=== PATIENT | female | born 1955 | race Caucasian/White ===

== ENCOUNTER 2016-12-14 14:15 | Inpatient (IN) | payer MEDICARE, OTHER ==
[2016-12-14] MEDS ORDERED: IPRATROPIUM 0.5 MG/2.5 ML NEBU INHALATION STA (14:37)
[2016-12-14] MEDS ORDERED: ALBUTEROL NEBULIZED 2.5 MG/3 ML INHALATION STA (14:37)
--- NOTE | 2016-12-14 14:40 | ED ---
General Adult HPI - General Chief complaint: Shortness of Breath Stated complaint: CALIN Source: patient, RN notes reviewed Mode of arrival: wheelchair Limitations: no limitations - History of Present Illness Initial comments: This is a 61-year-old female with past medical history significant for COPD and congestive heart failure. Patient states over the last few days she's gained about 5 pounds and she's also noticed or difficulty breathing got progressively worse with exertion. Patient denies any chest pain or palpitations. Patient denies any recent fever chills or cough. Patient denies abdominal pain patient denies nausea vomiting or diarrhea. Patient denies headache patient denies numbness weakness. Patient denies any lightheadedness dizziness or near syncopal episode. Patient denies any recent injury or trauma. Patient denies any dysuria hematuria urinary frequency. - Related Data Home Medications Medication Instructions Recorded Confirmed Levothyroxine Sodium [Synthroid] 125 mcg PO QAM 05/14/15 12/14/16 Tiotropium [place] [Spiriva] 1 cap INHALATION RT-DAILY 05/14/15 12/14/16 Metoprolol Tartrate [Lopressor] 50 mg PO TID 08/02/15 12/14/16 Levalbuterol Tartrate [Xopenex Hfa 2 puff INHALATION RT-Q6H PRN 01/21/16 Inhaler] hydrALAZINE HCL [Apresoline] 25 mg PO TID-W/MEALS 03/24/16 12/14/16 Mometasone/Formoterol [Dulera 200 2 puff INHALATION RT-BID 09/15/16 12/14/16 Mcg/5 Mcg Inhaler] Furosemide [Lasix] 40 mg PO BID 10/13/16 12/14/16 Aspirin EC [Ecotrin Low Dose] 81 mg PO HS 12/14/16 12/14/16 Famotidine [Pepcid] 20 mg PO DAILY 12/14/16 12/14/16 HYDROcodone/APAP 5-325MG [[place] 1 tab PO Q6HR PRN 12/14/16 12/14/16 5-325] Ipratropium-Albuterol Nebulize 3 ml INHALATION RT-QID 12/14/16 12/14/16 [Duoneb 0.5 mg-3 mg/3 ml Soln] Melatonin 5 mg PO HS PRN 12/14/16 12/14/16 Previous Rx's Medication Instructions Recorded Apixaban [Eliquis] 5 mg PO BID #60 tab 01/26/16 Atorvastatin [Lipitor] 80 mg PO HS #30 tab 03/28/16 Clopidogrel [Plavix] 75 mg PO DAILY tab 10/25/16 Enalapril [Vasotec] 20 mg PO DAILY #0 10/25/16 LORazepam [Ativan] 0.5 mg PO Q8H PRN #20 tab 10/25/16 Zolpidem [Ambien] 5 mg PO HS PRN #10 tab 10/25/16 Allergies Allergy/AdvReac Type Severity Reaction Status Date / Time ciprofloxacin HCl Allergy Severe Anaphylaxis Verified 12/14/16 16:16 [From Cipro] budesonide [From Symbicort] AdvReac Rapid Verified 12/14/16 16:16 Heart Rate formoterol fumarate AdvReac Rapid Verified 12/14/16 16:16 [From Symbicort] Heart Rate Review of Systems ROS Statement: Those systems with pertinent positive or pertinent negative responses have been documented in the HPI. ROS Other: All systems not noted in ROS Statement are negative. Past Medical History Past Medical History: Atrial Flutter, Coronary Artery Disease (CAD), Heart Failure, COPD, GERD/Reflux, Hyperlipidemia, Hypertension, Myocardial Infarction (NE), Osteoarthritis (OA), Syncope, Thyroid Disorder Additional Past Medical History / Comment(s): COPD and the patient is on home O2 at 2 L/m nasal cannula and she has a baseline FEV1 of 30% of predicted and she is a nonsmoker, congestion heart failure with an ejection fraction of 30-35 % along with severe pulmonary hypertension and the right ventricle systolic pressure of 60, history of atrial fibrillation/flutter/atrial tachycardia with previous cardiac ablation, fibromyalgia, hyperlipidemia, hypertension, colonic polyps, previous coronary artery disease and reported history of myocardial infarction, hypothyroidism, degenerative arthritis, nonischemic cardio myopathy, and severe peripheral vascular disease. Last Myocardial Infarction Date:: 2013 History of Any Multi-Drug Resistant Organisms: None Reported Past Surgical History: Bowel Resection, Cardiac Ablation, Section, Heart Catheterization, Tubal Ligation Additional Past Surgical History / Comment(s): Bowel resection, cardiac ablation for atrial flutter, , cardiac catheterization, tubal ligation Past Anesthesia/Blood Transfusion Reactions: Motion Sickness Additional Past Anesthesia/Blood Transfusion Reaction / Comment(s): CLAUSTROPHOBIA Past Psychological History: Anxiety, Depression Additional Psychological History / Comment(s): PT LIVES ALONE IS INDEPENDANT, 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 Smoking Status: Former smoker Past Alcohol Use History: Rare Additional Past Alcohol Use History / Comment(s): SMOKED 40 YEARS, 1 1/2-2 PPD, quit one monthe Past Drug Use History: None Reported - Past Family History Mother Family Medical History: Cancer Father Family Medical History: Coronary Artery Disease (CAD) General Exam - General Exam Comments Initial Comments: GENERAL: Patient is well-developed and well-nourished. Patient is nontoxic and well- hydrated and is in mild distress. ENT: Neck is soft and supple. No significant lymphadenopathy is noted. Oropharynx is clear. Moist mucous membranes. Neck has full range of motion without eliciting any pain. EYES: The sclera were anicteric and conjunctiva were pink and moist. Extraocular movements were intact and pupils were equal round and reactive to light. Eyelids were unremarkable. PULMONARY: Patient has significant diminished breath sounds but some expiratory wheezing as well CARDIOVASCULAR: Tachycardic and irregular ABDOMEN: Soft and nontender with normal bowel sounds. No palpable organomegaly was noted. There is no palpable pulsatile mass. SKIN: Skin is clear with no lesions or rashes and otherwise unremarkable. NEUROLOGIC: Patient is alert and oriented x3. Cranial nerves II through XII are grossly intact. Motor and sensory are also intact. Normal speech, volume and content. Symmetrical smile. MUSCULOSKELETAL: Normal extremities with adequate strength and full range of motion. 1+ LYMPHATICS: No significant lymphadenopathy is noted PSYCHIATRIC: Normal psychiatric evaluation. Normal interpersonal interactions appears functionally intact in deals appropriately with others. No signs of depression. No signs of anxiety. Limitations: no limitations Course Vital Signs 12/14/16 12/14/16 12/14/16 14:22 14:48 15:00 Temperature 96.6 F L Pulse Rate 74 132 H 121 H Respiratory 18 20 Rate Blood Pressure 145/78 O2 Sat by Pulse 94 L 99 Oximetry 12/14/16 12/14/16 12/14/16 15:15 15:30 15:46 Temperature Pulse Rate 116 H 118 H 109 H Respiratory 20 Rate Blood Pressure 123/92 O2 Sat by Pulse 99 Oximetry 12/14/16 12/14/16 12/14/16 15:56 16:11 17:00 Temperature Pulse Rate 115 H 118 H 120 H Respiratory 18 20 Rate Blood Pressure 119/80 O2 Sat by Pulse 93 L 95 Oximetry Medical Decision Making - Medical Decision Making EKG shows atrial fibrillation with rapid ventricular response at 132 bpm QRS is 86 QT interval 322 QTC is 477. Patient's EKG shows no ST segment elevation or depression or T-wave abdomen is noted. Chest x-ray shows COPD. Patient received 3 [id number] treatments after the last treatment I listened to her lungs she still had a very wheezing she still felt short of breath though she was slightly improved. I spoke with Dr. Ramos she is going to admit the patient I will write admitting orders I will continue the albuterol and steroids on the floor. - Lab Data Result diagrams: 12/14/16 14:45 12/14/16 14:45 Lab Results 12/14/16 12/14/16 12/14/16 Range/Units 14:45 14:45 14:45 WBC 8.5 (3.8-10.6) k/uL RBC 4.22 (3.80-5.40) m/uL Hgb 13.5 (11.4-16.0) gm/dL Hct 43.2 (34.0-46.0) % MCV 102.3 H (80.0-100.0) fL MCH 32.0 (25.0-35.0) pg MCHC 31.3 (31.0-37.0) g/dL RDW 16.1 H (11.5-15.5) % Plt Count 226 (150-450) k/uL Neutrophils % 69 % Lymphocytes % 19 % Monocytes % 7 % Eosinophils % 1 % Basophils % 1 % Neutrophils # 5.9 (1.3-7.7) k/uL Lymphocytes # 1.6 (1.0-4.8) k/uL Monocytes # 0.6 (0-1.0) k/uL Eosinophils # 0.1 (0-0.7) k/uL Basophils # 0.1 (0-0.2) k/uL Anisocytosis Slight Macrocytosis Moderate PT (9.0-12.0) sec INR (<1.1) APTT (22.0-30.0) sec Sodium 135 L (137-145) mmol/L Potassium 4.8 (3.5-5.1) mmol/L Chloride 93 L (98-107) mmol/L Carbon Dioxide 30 (22-30) mmol/L Anion Gap 12 mmol/L BUN 28 H (7-17) mg/dL Creatinine 0.76 (0.52-1.04) mg/dL Est GFR (MDRD) Af Amer >60 (>60 ml/min/1.73 sqM) Est GFR (MDRD) Non-Af >60 (>60 ml/min/1.73 sqM) Glucose 127 H (74-99) mg/dL Calcium 9.4 (8.4-10.2) mg/dL Magnesium 1.7 (1.6-2.3) mg/dL Total Bilirubin 1.3 (0.2-1.3) mg/dL AST 34 (14-36) U/L ALT 47 (9-52) U/L Alkaline Phosphatase 89 (38-126) U/L Total Creatine Kinase 64 (30-135) U/L CK-MB (CK-2) 3.0 H* (0.0-2.4) ng/mL CK-MB (CK-2) Rel Index 4.7 Troponin I <0.012 (0.000-0.034) ng/mL NT-Pro-B Natriuret Pep pg/mL Total Protein 7.6 (6.3-8.2) g/dL Albumin 4.3 (3.5-5.0) g/dL 12/14/16 12/14/16 Range/Units 14:45 14:45 WBC (3.8-10.6) k/uL RBC (3.80-5.40) m/uL Hgb (11.4-16.0) gm/dL Hct (34.0-46.0) % MCV (80.0-100.0) fL MCH (25.0-35.0) pg MCHC (31.0-37.0) g/dL RDW (11.5-15.5) % Plt Count (150-450) k/uL Neutrophils % % Lymphocytes % % Monocytes % % Eosinophils % % Basophils % % Neutrophils # (1.3-7.7) k/uL Lymphocytes # (1.0-4.8) k/uL Monocytes # (0-1.0) k/uL Eosinophils # (0-0.7) k/uL Basophils # (0-0.2) k/uL Anisocytosis Macrocytosis PT 14.2 H (9.0-12.0) sec INR 1.5 (<1.1) APTT 26.5 (22.0-30.0) sec Sodium (137-145) mmol/L Potassium (3.5-5.1) mmol/L Chloride (98-107) mmol/L Carbon Dioxide (22-30) mmol/L Anion Gap mmol/L BUN (7-17) mg/dL Creatinine (0.52-1.04) mg/dL Est GFR (MDRD) Af Amer (>60 ml/min/1.73 sqM) Est GFR (MDRD) Non-Af (>60 ml/min/1.73 sqM) Glucose (74-99) mg/dL Calcium (8.4-10.2) mg/dL Magnesium (1.6-2.3) mg/dL Total Bilirubin (0.2-1.3) mg/dL AST (14-36) U/L ALT (9-52) U/L Alkaline Phosphatase (38-126) U/L Total Creatine Kinase (30-135) U/L CK-MB (CK-2) (0.0-2.4) ng/mL CK-MB (CK-2) Rel Index Troponin I (0.000-0.034) ng/mL NT-Pro-B Natriuret Pep 99256 pg/mL Total Protein (6.3-8.2) g/dL Albumin (3.5-5.0) g/dL Critical Care Time Critical Care Time: Yes Total Critical Care Time: 35 Disposition Clinical Impression: COPD exacerbation Disposition: ADMITTED IP TO THIS HOSP Referrals: George Lloyd DO [Primary Care Provider] - 1-2 days Time of Disposition: 17:38
[2016-12-14 15:08] LABS: Anisocytosis Slight; Basophils # (A) 0.1 k/uL (0-0.2); Basophils % (A) 1 %; CH 32.5; Eosinophils # (A) 0.1 k/uL (0-0.7); Eosinophils % (A) 1 %; HCT 43.2 % (34.0-46.0); HDW 2.77; HGB 13.5 gm/dL (11.4-16.0); Luc # (Auto) 0.26; Luc % (Auto) 3; Lymphocytes # (A) 1.6 k/uL (1.0-4.8); Lymphocytes % (A) 19 %; MCHC 31.3 g/dL (31.0-37.0); MCV 102.3 fL (80.0-100.0); Macrocytosis Moderate; Mean Platelet Volume 8.4; Monocytes # (A) 0.6 k/uL (0-1.0); Monocytes % (A) 7 %; Neutrophils # (A) 5.9 k/uL (1.3-7.7); Neutrophils % (A) 69 %; RBC 4.22 m/uL (3.80-5.40); RDW 16.1 % (11.5-15.5); WBC 8.5 k/uL (3.8-10.6); WBC (Perox) 8.59
[2016-12-14 15:10] LABS: INR 1.5 (<1.1); Partial Thromboplastin Time 26.5 sec (22.0-30.0); Prothrombin Time 14.2 sec (9.0-12.0)
[2016-12-14 15:12] LABS: Glucose 127 mg/dL (74-99); Total Protein 7.6 g/dL (6.3-8.2)
[2016-12-14 15:13] LABS: ALT 47 U/L (9-52); AST 34 U/L (14-36); Alkaline Phosphatase 89 U/L (38-126); Anion Gap 12 mmol/L; Blood Urea Nitrogen 28 mg/dL (7-17); Calcium 9.4 mg/dL (8.4-10.2); Carbon Dioxide 30 mmol/L (22-30); Chloride 93 mmol/L (98-107); Magnesium 1.7 mg/dL (1.6-2.3); Non-African American GFR(MDRD) >60 (>60 ml/min/1.73 sqM); Potassium 4.8 mmol/L (3.5-5.1); Sodium 135 mmol/L (137-145); Total Bilirubin 1.3 mg/dL (0.2-1.3)
[2016-12-14 15:38] LABS: Creatine Kinase 64 U/L (30-135)
[2016-12-14 15:49] LABS: Troponin I <0.012 ng/mL (0.000-0.034)
--- NOTE | 2016-12-14 16:28 | XR ---
EXAMINATION TYPE: XR chest 2V DATE OF EXAM: 12/14/2016 4:20 PM HISTORY: Shortness of breath. REFERENCE: Previous study dated 10/22/2016. FINDINGS: The lungs are overinflated. There is multichamber cardiac enlargement. Lungs are clear. Ple ural spaces are clear. IMPRESSION: 1. COPD. 2. CARDIOMEGALY.
[2016-12-14] MEDS: IPRATROPIUM-ALBUTEROL 3 ML NEB INHALATION PRN ×2 (19:59→23:59)
[2016-12-14] MEDS: methylPREDNISolone SOD SUCCI 125 MG/2 ML VIAL IV SCH ×2 (20:02→23:59)
[2016-12-14] MEDS: INSULIN LISPRO (humaLOG) 300 UNIT/3 ML VIAL SQ SCH (21:18)
[2016-12-14] MEDS ORDERED: LORazepam 0.5 MG TAB PO PRN (21:31)
[2016-12-14] MEDS ORDERED: NON-FORMULARY DRUG (Levalbuterol Tartrate [Xopenex Hfa Inhaler] 2 PUFF) INHALATION PRN (21:31)
[2016-12-14 22:23] LABS: Glucose,Whole Blood 120 mg/dL (75-99)
[2016-12-14] MEDS: ATORVASTATIN 80 MG TAB PO SCH (22:32)
[2016-12-14] MEDS: HYDROcodone/APAP 5-325MG 1 EACH TAB PO PRN (22:32)
[2016-12-14] MEDS: METOPROLOL TARTRATE 50 MG TAB PO SCH (22:32)
[2016-12-14] MEDS: APIXABAN 5 MG TAB PO SCH (22:32)
[2016-12-14] MEDS: ZOLPIDEM 5 MG TAB PO PRN (23:21)
[2016-12-14] MEDS: MELATONIN 5 MG TABLET PO PRN (23:21)
[2016-12-15] MEDS ORDERED: DILTIAZEM 125 MG in SODIUM CHLORIDE 0.9% 100 ML IV SCH (00:15)
[2016-12-15] MEDS: IPRATROPIUM-ALBUTEROL 3 ML NEB INHALATION PRN ×3 (04:16→20:09)
[2016-12-15] MEDS: LEVOTHYROXINE 125 MCG TAB PO SCH (06:13)
[2016-12-15] MEDS: hydrALAZINE HCL 25 MG TAB PO SCH ×3 (06:13→17:09)
[2016-12-15] MEDS: methylPREDNISolone SOD SUCCI 125 MG/2 ML VIAL IV SCH ×4 (06:13→23:50)
[2016-12-15 07:21] LABS: Glucose,Whole Blood 179 mg/dL (75-99)
[2016-12-15] MEDS: INSULIN LISPRO (humaLOG) 300 UNIT/3 ML VIAL SQ SCH ×4 (07:26→21:51)
[2016-12-15] MEDS ORDERED: TIOTROPIUM 18 MCG/PUFF INHALER INHALATION SCH (08:00)
[2016-12-15] MEDS: APIXABAN 5 MG TAB PO SCH ×2 (09:11→21:23)
[2016-12-15] MEDS: FAMOTIDINE 20 MG TAB PO SCH (09:11)
[2016-12-15] MEDS: CLOPIDOGREL 75 MG TAB PO SCH (09:12)
[2016-12-15] MEDS: METOPROLOL TARTRATE 50 MG TAB PO SCH ×3 (09:12→21:22)
[2016-12-15] MEDS: FUROSEMIDE 40 MG TAB PO SCH ×2 (09:12→15:46)
[2016-12-15] MEDS: DILTIAZEM ORAL 30 MG TAB PO SCH ×3 (09:21→21:23)
--- NOTE | 2016-12-15 10:13 | CONS ---
DATE OF CONSULTATION: CHIEF COMPLAINT: Palpitations, shortness of breath. Allison is a 61-year-old lady with a history of severe COPD, peripheral vascular disease, PTCA of the right superficial femoral artery, prior history of congestive heart failure, history of paroxysmal atrial fibrillation, who is on long-term anticoagulant, presented to hospital with shortness of breath and palpitations. She was found to be in atrial fibrillation with rapid ventricular rate, treated with intravenous Cardizem with significant improvement in her heart rate and symptoms. This morning her heart rate is in the 90s to 100. I stopped the intravenous Cardizem and I am starting her on oral Cardizem. She is already on an anticoagulant and she is on beta stu. Past medical history is significant for COPD, congestive heart failure, peripheral vascular disease, hypertension, dyslipidemia, and insulin-requiring diabetes. Medications at home included: 1. Hydralazine. 2. Ambien. 3. Spiriva. 4. Dulera. 5. Lopressor 50 t.i.d. 6. Synthroid. 7. Melatonin. 8. Xopenex. 9. Ativan. 10. Duoneb. 11. Lasix 40 b.i.d. 12. Pepcid. 13. Vasotec 20 mg daily. 14. Plavix 75 mg daily. 15. Lipitor. 16. Aspirin. 17. Eliquis. THE PATIENT IS ALLERGIC TO CIPRO AND SYMBICORT. FAMILY HISTORY: Negative for premature coronary artery disease. SOCIAL HISTORY: Significant for smoking. There is no history of ETOH abuse, or drug abuse. REVIEW OF SYSTEMS: HEENT: Unremarkable. CARDIAC: As described above. RESPIRATORY: As described above. GI: Negative. GENITOURINARY: Negative. MUSCULOSKELETAL: Significant for arthritis. PSYCHOSOCIAL: Negative. ENDOCRINE: negative. HEMATOLOGIC: Negative. Dermatology: Negative. CONSTITUTIONAL: Significant for fatigue and tiredness. The rest of the system review is not relevant. On exam she is comfortable at rest. Vital signs are stable. Heart rate is slightly elevated in the 90s to 100. Chest exam reveals diffuse bilateral rhonchi. Heart exam reveals first and second heart sounds, irregular rhythm. ABDOMEN: Soft. Exam of the extremities did not reveal any edema. Peripheral pulses are diminished. Labs show that hemoglobin is 13.5, platelet count is 226. Creatinine is 0.76. Troponin is negative. BNP is elevated. ASSESSMENT: 1. Acute exacerbation of chronic systolic heart failure. 2. Chronic atrial fibrillation with rapid ventricular rate. 3. Severe chronic obstructive pulmonary disease. 4. Peripheral vascular disease. 5. Hypertension. PLAN: I am going to stop the intravenous Cardizem, start her on oral Cardizem. Continue the Eliquis that she is on. The patient is on optimal therapies for her peripheral vascular disease including Plavix and Lipitor. Her hypertension is well controlled on the current medications that include Zestril, Apresoline and the metoprolol. Thank you for giving me the privilege to participate in the care of this pleasant lady. We will follow her throughout her hospitalization with interest.
[2016-12-15] MEDS: HYDROcodone/APAP 5-325MG 1 EACH TAB PO PRN ×2 (11:11→17:19)
[2016-12-15 11:44] LABS: Glucose,Whole Blood 164 mg/dL (75-99)
--- NOTE | 2016-12-15 11:44 | ECHOF ---
Referral Reason:A fib, COPD MEASUREMENTS -------- HEIGHT: 162.6 cm WEIGHT: 68.0 kg BP: RVIDd: 4.1 cm (< 3.3) IVSd: 0.9 cm (0.6 - 1.1) LVIDd: 3.9 cm (3.9 - 5.3) LVPWd: 1.0 cm (0.6 - 1.1) IVSs: 1.4 cm LVIDs: 3.5 cm LVPWs: 1.4 cm LA Diam: 4.1 cm (2.7 - 3.8) LAESV Index (A-L): 45.51 ml/m Ao Diam: 2.4 cm (2.0 - 3.7) AV Cusp: 1.6 cm (1.5 - 2.6) LA Diam: 3.8 cm (2.7 - 3.8) MV EXCURSION: 12.495 mm (> 18.000) MV EF SLOPE: 95 mm/s (70 - 150) EPSS: 0.7 cm RAP: 15.00 mmHg RVSP: 46.29 mmHg FINDINGS -------- Atrial fibrillation. This was a technically good study. Left ventricular wall thickness is normal. Overall left ventricular systolic function is moderately impaired with, an EF between 35 - 40 %. The right ventricle is severely enlarged. LA is severely dilated >40 ml/m2 The right atrium is mildly enlarged. Aortic valve is trileaflet and is mildly thickened. The mitral valve leaflets are mildly thickened. Mild mitral annular calcification present. Mild mitral regurgitation is present. Mild tricuspid regurgitation present. There is mild to moderate pulmonary hypertension. The right ventricular systolic pressure, as measured by Doppler, is 46.29mmHg. The pulmonic valve was not well visualized. The aortic root size is normal. The inferior vena cava is dilated with poor inspiratory collapse which is consistent with estimated right atrial pressure of 15 mmHg. There is no pericardial effusion. CONCLUSIONS -------- 1. Atrial fibrillation. 2. Mild mitral annular calcification present. 3. Mild mitral regurgitation is present. 4. Mild tricuspid regurgitation present. 5. There is mild to moderate pulmonary hypertension. 6. The right ventricular systolic pressure, as measured by Doppler, is 46.29mmHg. 7. The pulmonic valve was not well visualized. 8. The aortic root size is normal. 9. The inferior vena cava is dilated with poor inspiratory collapse which is consistent with estimated right atrial pressure of 15 mmHg. 10. There is no pericardial effusion. 11. This was a technically good study. 12. Left ventricular wall thickness is normal. 13. Overall left ventricular systolic function is moderately impaired with, an EF between 35 - 40 %. 14. The right ventricle is severely enlarged. 15. LA is severely dilated >40 ml/m2 16. The right atrium is mildly enlarged. 17. Aortic valve is trileaflet and is mildly thickened. 18. The mitral valve leaflets are mildly thickened. KNITTER MACHINE: Lena Cortes RDCS
[2016-12-15] MEDS: LISINOPRIL 20 MG TAB PO SCH (12:58)
[2016-12-15] MEDS: IPRATROPIUM-ALBUTEROL 3 ML NEB INHALATION SCH ×4 (13:09→20:16)
--- NOTE | 2016-12-15 15:33 | HP ---
DATE OF ADMISSION: 12/14/2015 PRESENTING COMPLAINT: Cough and short of breath. HISTORY OF PRESENTING COMPLAINT: This is a very pleasant 61-year-old patient of Dr. 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 The patient has a rather extensive medical history. Patient's chronic stable medical conditions include restless leg syndrome, coronary artery disease, fibromyalgia, hyperlipidemia, hypertension, osteoarthritis, chronic respiratory failure on 2 liters oxygen at home, hypothyroidism. Patient presents with worsening short of breath, cough, yellow thick sputum. No fever, decreased appetite. Short of breath. Some edema feeling tired and rundown. REVIEW OF SYSTEMS: CONSTITUTIONAL: Tired. HEENT: None. RESPIRATORY: As above. CARDIOVASCULAR: Edema. GASTROINTESTINAL: None. GENITOURINARY: None. MUSCULOSKELETAL: Pain in the joints. Dermatological: Dry skin, bruising. HEMATOLOGICAL: As above. LYMPHATICS: None. PSYCHIATRY: Anxiety. NEUROLOGICAL: Restless leg syndrome. PAST MEDICAL HISTORY: History of atrial tachycardia with failed ablation, coronary artery disease, COPD, nicotine dependence, fibromyalgia, hyperlipidemia, hypertension, DJD, home oxygen, hypothyroidism, congestive heart failure, ejection fraction 30% to 35%. PAST SURGICAL HISTORY: Bowel resection, , cardiac catheterization, EP study with ablation. SOCIAL HISTORY: The patient smoked for many years; stopped about 3 months ago. Lives alone. ALLERGIES: CIPROFLOXACIN. FAMILY HISTORY: Reviewed, noncontributory to the presentation. HOME MEDICATIONS: 1. Hydralazine 25 mg p.o. t.i.d. 2. Ambien 5 mg p.o. q.h.s. p.r.n. 3. Spiriva 1 capsule p.o. daily. 4. Dulera 200/5, 2 puffs b.i.d. 5. Lopressor 50 mg t.i.d. 6. Melatonin 5 mg p.o. q.h.s. p.r.n. 7. Synthroid 125 mcg p.o. daily. 8. Xopenex 2 puffs q.6 p.r.n. 9. Ativan 0.5 q.8 p.r.n. 10. DuoNeb q.i.d. 11. [place] 5 1 tablets q.6 p.r.n. 12. Lasix 40 mg b.i.d. 13. Pepcid 20 mg daily. 14. Vasotec 20 mg daily. 15. Plavix 75 mg daily. 16. Lipitor 80 mg q.h.s. 17. Aspirin 81 mg q.h.s. 18. Eliquis 5 mg p.o. b.i.d. ALLERGIES TO CIPRO AND BUDESONIDE AND SYMBICORT. VITAL SIGNS: On examination vital signs on presentation: Temperature 96.6, pulse 74, respiration 18, and heart rate did go up to 132, blood pressure 140/78, pulse ox 99% on ( ). GENERAL APPEARANCE: Sitting up, very short of breath. EYES: Pupils equal. Conjunctivae normal. HEENT: Oral cavity normal. NECK: JVD unable to assess. Mass not palpable. RESPIRATORY: Effort decreased. LUNGS: Diminished breath sounds. Prolonged expiration and some crackles. Accessory muscles are working. Not able to speak in full sentences. CARDIOVASCULAR: Heart sounds irregular, some edema present. ABDOMEN: Soft, nontender. Liver and spleen not palpable. LYMPHATIC: No lymph nodes palpable in neck or axillae. PSYCHIATRY: Alert and oriented x3. Mood and affect anxious appearing. NEUROLOGICAL: Pupils equal. Cranial nerves grossly intact. Power and sensation grossly intact. MUSCULOSKELETAL: Evidence of osteoarthritis of multiple joints. Dermatological: Dry skin. INVESTIGATIONS: White count 8.5, hemoglobin 13.5. Potassium 4.8. BUN 20 creatinine 0.76. ProBNP 10,300. Troponin less than 0.012. Chest x-ray shows over-inflation probably some venous prominence, cardiomegaly, EKG shows atrial fibrillation with rapid ventricular rate. ASSESSMENT: 1. Acute on chronic congestive heart failure exacerbation from systolic dysfunction; ejection fraction 30- 35%, underlying coronary artery disease. 2. Persistent atrial flutter fibrillation with rapid ventricular rate on presentation. 3. Acute severe chronic obstructive pulmonary disease exacerbation in an active smoker. 4. Restless leg syndrome. 5. Fibromyalgia. 6. Hyperlipidemia. 7. Essential hypertension. 8. Primary osteoarthritis of multiple joints, bilaterally. 9. Chronic hypoxic respiratory failure, from underlying chronic obstructive pulmonary disease on 2 liters oxygen at home. 10. Hypothyroidism. 11. Moderate secondary pulmonary hypertension secondary to chronic obstructive pulmonary disease. 12. Severe tricuspid regurgitation, nonrheumatic. PLAN: Home medications are resumed. Patient was put on IV Solu-Medrol, nebulized bronchodilators, IV Lasix and patient is given some Lasix. The patient was put on Cardizem per cardiology. Care was discussed with the patient. Anticoagulation for A. fib from Eliquis is present. We will add Augmentin p.o.
[2016-12-15] MEDS: AMOXIC-POT CLAV 875-125MG 1 EACH TAB PO SCH ×2 (15:45→21:22)
[2016-12-15 17:17] LABS: Glucose,Whole Blood 202 mg/dL (75-99)
[2016-12-15] MEDS: DULERA INHALATION SCH (21:22)
[2016-12-15] MEDS: ASPIRIN 81 MG CHEW PO SCH (21:23)
[2016-12-15] MEDS: ATORVASTATIN 80 MG TAB PO SCH (21:23)
[2016-12-15] MEDS ORDERED: FUROSEMIDE 10 MG/ML 4 ML VIAL IV STA (21:31)
[2016-12-15 21:47] LABS: Glucose,Whole Blood 204 mg/dL (75-99)
[2016-12-15] MEDS: MELATONIN 5 MG TABLET PO PRN (23:50)
[2016-12-15] MEDS: ZOLPIDEM 5 MG TAB PO PRN (23:50)
[2016-12-16] MEDS: HYDROcodone/APAP 5-325MG 1 EACH TAB PO PRN ×4 (00:44→21:34)
[2016-12-16] MEDS: hydrALAZINE HCL 25 MG TAB PO SCH ×3 (06:34→17:12)
[2016-12-16] MEDS: methylPREDNISolone SOD SUCCI 125 MG/2 ML VIAL IV SCH ×4 (06:34→23:00)
[2016-12-16] MEDS: INSULIN LISPRO (humaLOG) 300 UNIT/3 ML VIAL SQ SCH ×4 (06:35→20:51)
[2016-12-16] MEDS: LEVOTHYROXINE 125 MCG TAB PO SCH (06:35)
[2016-12-16 06:50] LABS: Glucose,Whole Blood 176 mg/dL (75-99)
[2016-12-16] MEDS: DILTIAZEM ORAL 30 MG TAB PO SCH ×3 (08:07→20:51)
[2016-12-16] MEDS: METOPROLOL TARTRATE 50 MG TAB PO SCH ×3 (08:07→20:51)
[2016-12-16] MEDS: DULERA INHALATION SCH (08:07)
[2016-12-16] MEDS: FUROSEMIDE 40 MG TAB PO SCH ×2 (08:08→15:44)
[2016-12-16] MEDS: AMOXIC-POT CLAV 875-125MG 1 EACH TAB PO SCH ×2 (08:08→20:50)
[2016-12-16] MEDS: LISINOPRIL 20 MG TAB PO SCH (08:09)
[2016-12-16] MEDS: FAMOTIDINE 20 MG TAB PO SCH (08:09)
[2016-12-16] MEDS: APIXABAN 5 MG TAB PO SCH (08:09)
[2016-12-16] MEDS: CLOPIDOGREL 75 MG TAB PO SCH (08:10)
[2016-12-16] MEDS: IPRATROPIUM-ALBUTEROL 3 ML NEB INHALATION SCH ×3 (08:13→19:58)
[2016-12-16 11:19] LABS: Glucose,Whole Blood 149 mg/dL (75-99)
--- NOTE | 2016-12-16 12:06 | P.PN ---
Subjective Principal diagnosis: Shortness of breath this is a 61-year-old female patient with history of severe COPD, peripheral vascular disease, PAD with prior PTCA of the right superficial femoral artery, paroxysmal atrial fibrillation, who presented to the hospital primarily with symptoms of worsening shortness of breath and palpitations. She has been being treated for congestive heart failure did receive IV Lasix and is currently on by mouth Lasix. She was also found to be in atrial fibrillation with a rapid ventricular response, initiated on IV Cardizem and yesterday changed over to by mouth Cardizem. She is currently on by mouth Cardizem 30 3 times a day along with her beta stu.She is on Eliquis for anticoagulation.In view of the fact that the patient is on Eliquis, aspirin, and Plavix, we will decrease her dose of Eliquis to 2-1/2 mg one tablet by mouth twice a day.patient continues to have significant amount of wheezing on examination today. Objective - Vital Signs Vital signs: Vital Signs Temp 97.4 F L 12/16/16 04:00 Pulse 96 12/16/16 11:27 Resp 18 12/16/16 08:00 BP 109/64 12/16/16 04:00 Pulse Ox 91 L 12/16/16 08:00 Intake & Output 12/15/16 12/16/16 12/16/16 18:59 06:59 18:59 Intake Total 640 400 716 Output Total 600 1400 Balance 40 -1000 716 Weight 67.8 kg Intake: IV 40 Diltiazem 125 mg In 40 Sodium Chloride 0.9% 100 ml @ 7.5 MG/HR 7.5 mls/hr IV .[id number] [facility] [place] Rx#: [id number] Oral 600 400 716 Output: Urine 600 1400 Other: Voiding Method Toilet Toilet # Voids 2 1 # Bowel Movements 0 - Exam PHYSICAL EXAMINATION: HEENT: [Head is atraumatic, normocephalic. Pupils equal, round. Neck is supple. There is no elevated jugular venous pressure.] HEART EXAMINATION: heart S1 and S2 irregular irregular CHEST EXAMINATION:Lungs reveal scattered coarse wheezing throughout. ABDOMEN: [ Soft, nontender. Bowel sounds are heard. No organomegaly noted]. EXTREMITIES:[ 1+ peripheral pulses with trace evidence of peripheral edema and no calf tenderness noted]. NEUROLOGIC [patient is awake, alert and oriented -3.] . - Labs CBC & Chem 7: 12/14/16 14:45 12/14/16 14:45 Labs: Abnormal Lab Results - Last 24 Hours (Table) 12/15/16 12/15/16 12/16/16 Range/Units 16:49 21:34 06:15 POC Glucose (mg/dL) 202 H 204 H 176 H (75-99) mg/dL 12/16/16 Range/Units 11:18 POC Glucose (mg/dL) 149 H (75-99) mg/dL Assessment and Plan (1) Systolic CHF, acute on chronic Status: Acute (2) Chronic a-fib Status: Acute (3) COPD exacerbation Status: Acute (4) EtOH dependence Status: Acute (5) Hypothyroid Status: Acute (6) NICM (nonischemic cardiomyopathy) Status: Acute (7) Nicotine dependence Status: Acute (8) PAD (peripheral artery disease) Status: Acute Plan: From cardiology's perspective, we will recommend to continue Cardizem along with beta stu. We will decrease the Eliquis to 2-1/2 mg one tablet by mouth twice a day, continue baby aspirin along with Plavix. Continue current dose of by mouth Lasix. DNP note has been reviewed, I agree with a documented findings and plan of care. Patient was seen and examined.
--- NOTE | 2016-12-16 13:40 | P.CNPUL ---
History of Present Illness Consult date: 12/16/16 Requesting physician: Iglesia Ramos Reason for consult: COPD Chief complaint: Shortness of breath History of present illness: This is a very pleasant 61-year-old female patient who follows with Dr. Chika Lloyd as her primary care physician. She has a history of severe peripheral vascular disease with claudication status post PTBA, systolic congestive heart failure with an ejection fraction of 30-35%, coronary artery disease, gastroesophageal reflux disease, hyperlipidemia, hypertension, pulmonary hypertension, atrial fibrillation/flutter/atrial tachycardia with previous ablation hypothyroidism. She also follows with Dr. Guallpa in our office for severe oxygen dependent Gold stage IV chronic obstructive pulmonary disease. Her FEV1 value is 30% of predicted. She presented here on 12/14/2016 with complaints of increasing shortness of breath, cough and congestion. She had thick yellow sputum production. No chills or night sweats. He was fatigued and weak. So had noted a 5 pound weight gain. She is seen today 12/16 in consultation on the selective care unit. She is awake and alert. She is dyspneic with minimal conversation a minimal activity. She has a loose nonproductive cough currently. She denies any chest pain palpitations lightheadedness or dizziness. Her chest x-ray revealed evidence of chronic obstructive pulmonary disease and cardiomegaly but no acute cardiopulmonary process. An echocardiogram revealed impaired left ventricular systolic function with estimated ejection fraction 35-40%. Right ventricle was severely enlarged. She also had a right ventricular systolic pressure of 46 mmHg. She' s been treated for both acute exacerbation of CHF along with COPD exacerbation. Review of Systems 14 point review of system was conducted. All negative other than as mentioned in HPI. Past Medical History Past Medical History: Atrial Flutter, Coronary Artery Disease (CAD), Heart Failure, COPD, GERD/Reflux, Hyperlipidemia, Hypertension, Myocardial Infarction ([place]), Osteoarthritis (OA), Syncope, Thyroid Disorder Additional Past Medical History / Comment(s): COPD and the patient is on home O2 at 2 L/m nasal cannula and she has a baseline FEV1 of 30% of predicted and she is a nonsmoker, congestion heart failure with an ejection fraction of 30-35 % along with severe pulmonary hypertension and the right ventricle systolic pressure of 60, history of atrial fibrillation/flutter/atrial tachycardia with previous cardiac ablation, fibromyalgia, hyperlipidemia, hypertension, colonic polyps, previous coronary artery disease and reported history of myocardial infarction, hypothyroidism, degenerative arthritis, nonischemic cardio myopathy, and severe peripheral vascular disease. 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 Smoking Status: Former smoker Past Alcohol Use History: Rare Additional Past Alcohol Use History / Comment(s): SMOKED 40 YEARS, 1 1/2-2 PPD, quit in August Past Drug Use History: None Reported - Past Family History Mother Family Medical History: Cancer Father Family Medical History: Coronary Artery Disease (CAD) Medications and Allergies Home Medications Medication Instructions Recorded Confirmed Type Levothyroxine Sodium [Synthroid] 125 mcg PO QAM 05/14/15 12/14/16 History Tiotropium [place] [Spiriva] 1 cap INHALATION RT-DAILY 05/14/15 12/14/16 History Metoprolol Tartrate [Lopressor] 50 mg PO TID 08/02/15 12/14/16 History Levalbuterol Tartrate [Xopenex Hfa 2 puff INHALATION RT-Q6H PRN 01/21/16 History Inhaler] hydrALAZINE HCL [Apresoline] 25 mg PO TID-W/MEALS 03/24/16 12/14/16 History Mometasone/Formoterol [Dulera 200 2 puff INHALATION RT-BID 09/15/16 12/14/16 History Mcg/5 Mcg Inhaler] Furosemide [Lasix] 40 mg PO BID 10/13/16 12/14/16 History Aspirin EC [Ecotrin Low Dose] 81 mg PO HS 12/14/16 12/14/16 History Famotidine [Pepcid] 20 mg PO DAILY 12/14/16 12/14/16 History HYDROcodone/APAP 5-325MG [[place] 1 tab PO Q6HR PRN 12/14/16 12/14/16 History 5-325] Ipratropium-Albuterol Nebulize 3 ml INHALATION RT-QID 12/14/16 12/14/16 History [Duoneb 0.5 mg-3 mg/3 ml Soln] Melatonin 5 mg PO HS PRN 12/14/16 12/14/16 History Allergies Allergy/AdvReac Type Severity Reaction Status Date / Time ciprofloxacin HCl Allergy Severe Anaphylaxis Verified 12/14/16 16:16 [From Cipro] budesonide [From Symbicort] AdvReac Rapid Verified 12/14/16 16:16 Heart Rate formoterol fumarate AdvReac Rapid Verified 12/14/16 16:16 [From Symbicort] Heart Rate Physical Exam Vitals: Vital Signs Temp Pulse Pulse Resp BP Pulse Ox 12/16/16 11:27 96 12/16/16 11:20 92 12/16/16 08:55 88 12/16/16 08:16 89 12/16/16 08:00 72 16 91 L 12/16/16 04:00 97.4 F L 89 18 109/64 94 L 12/16/16 00:00 96 22 122/69 91 L 12/15/16 20:12 88 12/15/16 20:01 88 12/15/16 20:00 97.1 F L 94 20 115/70 91 L 12/15/16 16:55 88 109/64 12/15/16 16:19 100 12/15/16 16:04 100 12/15/16 15:43 95 F L 109 H 20 106/79 92 L Intake and Output 12/15/16 12/16/16 12/16/16 22:59 06:59 14:59 Intake Total 240 400 716 Output Total 850 950 150 Balance -610 -550 566 Intake: Oral 240 400 716 Output: Urine 850 950 150 Other: Voiding Method Toilet Toilet # Voids 1 1 # Bowel Movements 0 Weight 67.8 kg GENERAL EXAM: Obese. Alert, dyspneic on minimal exertion. HEAD: Normocephalic. EYES: Normal reaction of pupils, equal size. NOSE: Clear with pink turbinates. THROAT: There is crowding the posterior pharynx. Short. No erythema or exudates. NECK: No masses, no JVD. CHEST: No chest wall deformity. LUNGS: Equal air entry with bilateral end expiratory wheeze, faint crackles in the posterior bases. CVS: S1 and S2 normal with an audible murmur, regular rhythm. ABDOMEN: Obese. No hepatosplenomegaly, normal bowel sounds, no guarding or rigidity. SPINE: Kyphoscoliosis. SKIN: No rashes CENTRAL NERVOUS SYSTEM: No focal deficits, tone is normal in all 4 extremities. Extremities: There is trace peripheral edema. No clubbing, no cyanosis. Peripheral pulses are intact. Results - Laboratory Findings CBC and BMP: 12/14/16 14:45 12/14/16 14:45 PT/INR, D-dimer PT 14.2 sec (9.0-12.0) H 12/14/16 14:45 INR 1.5 (<1.1) 12/14/16 14:45 Abnormal lab findings: Abnormal Labs 12/14/16 12/15/16 12/15/16 20:56 07:09 11:36 POC Glucose (mg/dL) 120 H 179 H 164 H 12/15/16 12/15/16 12/16/16 16:49 21:34 06:15 POC Glucose (mg/dL) 202 H 204 H 176 H 12/16/16 11:18 POC Glucose (mg/dL) 149 H - Diagnostic Findings Chest x-ray: image reviewed (COPD, cardiomegaly) Assessment and Plan Plan: Impression: #1 Acute exacerbation of chronic systolic congestive heart failure. Impaired left ventricular systolic function with estimated ejection fraction 35-40%. #2 Acute exacerbation of severe oxygen dependent chronic obstructive pulmonary disease, Gold stage IV FEV1 value 30% of predicted. #3 Acute on chronic hypoxic respiratory failure secondary to above. #4 Severe peripheral vascular disease with previous PTBA of the right superficial femoral artery, complicated by large anterior abdominal wall hematoma in September 2016. #5 Coronary artery disease with previous myocardial infarction. #6 History of atrial fibrillation/flutter/atrial tachycardia with previous cardiac ablation. #7 Moderate to severe pulmonary hypertension, RVSP 46 mmHg. #8 History of 40+ years 1 to 1-1/2 pack per day smoking however quit approximately August 2016. #9 Hypertension. #10 Hyperlipidemia. #11 Hypothyroidism. Plan: The patient was seen and evaluated by Dr. Crowley. Her chest x-ray and labs were reviewed. She is being treated for both COPD and CHF exacerbations. She remains on bronchodilators 4 times a day and when necessary, Dulera, IV Solu- Medrol. She is also on Lasix 40 mg twice a day. She is on empiric antibiotics in the form of Augmentin. She is anticoagulated with Eliquis. She is on Pepcid for GI prophylaxis. We will increase her activity as tolerated. We'll continue to follow make further recommendations based on her clinical status.
[2016-12-16] MEDS: IPRATROPIUM-ALBUTEROL 3 ML NEB INHALATION PRN (16:14)
[2016-12-16] MEDS: ONDANSETRON 4 MG/2 ML VIAL IVP PRN ×2 (16:15→23:02)
[2016-12-16 16:48] LABS: Glucose,Whole Blood 190 mg/dL (75-99)
[2016-12-16 20:30] LABS: Glucose,Whole Blood 174 mg/dL (75-99)
[2016-12-16] MEDS: ATORVASTATIN 80 MG TAB PO SCH (20:51)
[2016-12-16] MEDS: ASPIRIN 81 MG CHEW PO SCH (20:51)
[2016-12-16] MEDS: APIXABAN 2.5 MG TABLET PO SCH (20:54)
--- NOTE | 2016-12-16 22:49 | PN ---
DATE OF SERVICE: 12/16/2016 PRESENTING COMPLAINT: Cough, short of breath. INTERVAL HISTORY: This patient presented with COPD exacerbation, CHF exacerbation. Does feel weak and tired today. Arthritis in the spine is lighting up. Still quite a bit short of breath at rest. Sitting on the edge of the bed. Did tolerate some diet. Review of systems done for constitutional, cardiovascular, GI, pulmonary; relevant findings as above. Current medications are reviewed include: 1. Nebulized bronchodilators and 2. Steroids. On examination, temperature 96.5, pulse 86, respirations 18, blood pressure 102/67, pulse ox 93% on 2L. Sitting on the edge of the bed, short of breath. EYES: Pupils equal. Conjunctivae normal. HEENT: Oral cavity normal. NECK: JVD unable to assess. RESPIRATORY: Effort increased. LUNGS: Diminished breath sounds. CARDIOVASCULAR: Heart sounds irregular. Some edema is present. ABDOMEN: Soft, nontender. PSYCHIATRY: Alert and oriented x3. Mood and affect slightly anxious-appearing. INVESTIGATIONS: Accu-Cheks are noted. Telemetry shows A. fib with controlled. ASSESSMENT: 1. Acute on chronic congestive heart failure exacerbation from systolic dysfunction; ejection fraction 30% to 35% from underlying coronary artery disease. 2. Persistent atrial flutter/fibrillation with rapid ventricular rate on presentation, now better controlled. 3. Acute severe chronic obstructive pulmonary disease exacerbation in an active smoker, slow to respond. 4. Restless leg syndrome. 5. Fibromyalgia. 6. Hyperlipidemia. 7. Essential hypertension. 8. Primary osteoarthritis in multiple joints bilaterally. 9. Chronic hypoxic respiratory failure from underlying chronic obstructive pulmonary disease on 2L of oxygen at home. 10. Hypothyroidism. 11. Moderate secondary pulmonary hypertension secondary to chronic obstructive pulmonary disease. 12. Severe tricuspid regurgitation, nonrheumatic. PLAN: Continue current medication and treatment plan. Care was discussed with the patient. Will give a heating pad for the spine pain. Follow.
[2016-12-16] MEDS: ZOLPIDEM 5 MG TAB PO PRN (23:00)
[2016-12-17] MEDS: hydrALAZINE HCL 25 MG TAB PO SCH ×3 (06:22→16:57)
[2016-12-17] MEDS: methylPREDNISolone SOD SUCCI 125 MG/2 ML VIAL IV SCH ×4 (06:22→23:06)
[2016-12-17] MEDS: LEVOTHYROXINE 125 MCG TAB PO SCH (06:22)
[2016-12-17] MEDS: INSULIN LISPRO (humaLOG) 300 UNIT/3 ML VIAL SQ SCH ×4 (06:27→22:05)
[2016-12-17 06:28] LABS: Glucose,Whole Blood 173 mg/dL (75-99)
[2016-12-17] MEDS: ONDANSETRON 4 MG/2 ML VIAL IVP PRN ×2 (06:31→12:57)
[2016-12-17] MEDS: DULERA INHALATION SCH ×2 (06:31→09:44)
[2016-12-17 06:35] LABS: Calcium 8.8 mg/dL (8.4-10.2); Magnesium 2.1 mg/dL (1.6-2.3)
[2016-12-17] MEDS ORDERED: TIOTROPIUM 18 MCG/PUFF INHALER INHALATION SCH (08:00)
[2016-12-17] MEDS: IPRATROPIUM-ALBUTEROL 3 ML NEB INHALATION SCH ×4 (08:10→19:59)
[2016-12-17] MEDS: APIXABAN 2.5 MG TABLET PO SCH ×2 (09:44→22:04)
[2016-12-17] MEDS: AMOXIC-POT CLAV 875-125MG 1 EACH TAB PO SCH (09:44)
[2016-12-17] MEDS: CLOPIDOGREL 75 MG TAB PO SCH (09:44)
[2016-12-17] MEDS: DILTIAZEM ORAL 30 MG TAB PO SCH ×3 (09:45→22:04)
[2016-12-17] MEDS: FAMOTIDINE 20 MG TAB PO SCH (09:45)
[2016-12-17] MEDS: METOPROLOL TARTRATE 50 MG TAB PO SCH ×3 (09:45→22:06)
[2016-12-17] MEDS: LISINOPRIL 20 MG TAB PO SCH (09:45)
--- NOTE | 2016-12-17 11:45 | P.PN ---
Subjective Progress note dated 12/17/2016 61-year-old female sees Dr. Lloyd as her primary doctor. Has a history of peripheral vascular occlusive disease systolic CHF CAD GERD hyperlipidemia hypertension pulmonary hypertension atrial fibrillation/flutter and COPD. Her COPD is quite severe. She has Gold stage IV disease. Her FEV1 is about 30% of predicted. Anyway she was admitted with a COPD exacerbation. Doing a bit better today. Not quite not back to baseline. Still short of breath. Lots of chest congestion. Wheezing. Tightness in her chest. Coughing. No fever no chills. Bring up some phlegm. Most of his white are clear. Objective - Vital Signs Vital signs: Vital Signs Temp 97 F L 12/17/16 09:25 Pulse 82 12/17/16 09:25 Resp 18 12/17/16 09:25 BP 113/60 12/17/16 09:25 Pulse Ox 96 12/17/16 09:25 Intake & Output 12/16/16 12/17/16 12/17/16 18:59 06:59 18:59 Intake Total 1052 22 250 Output Total 450 250 Balance 602 -228 250 Weight 71 kg Intake: IV 22 0.9% NS FLUSh 20 IV SOlumedrol 60 Q6H. 2 Oral 1052 250 Output: Urine 450 250 Other: Voiding Method Toilet Toilet - Exam No acute distress, no respiratory distress. Oriented 3. HEENT examination is grossly unremarkable. Mucous membranes are moist. She is wearing nasal O2. Neck supple. Full range of motion. No adenopathy or thyromegaly. Cardiovascular examination reveals regular rhythm rate. Lungs reveal coarse inspiratory expiratory rhonchi and wheezes. Breath sounds are diminished. This prolongation on forced maneuver. Abdomen soft bowel sounds are heard. Extremities are intact. - Labs CBC & Chem 7: 12/14/16 14:45 12/17/16 05:55 Labs: Abnormal Lab Results - Last 24 Hours (Table) 12/16/16 12/16/16 12/17/16 Range/Units 16:33 20:26 05:55 Sodium 131 L (137-145) mmol/L Potassium 6.0 H (3.5-5.1) mmol/L Chloride 89 L (98-107) mmol/L BUN 82 H* (7-17) mg/dL Creatinine 1.90 H (0.52-1.04) mg/dL Glucose 180 H (74-99) mg/dL POC Glucose (mg/dL) 190 H 174 H (75-99) mg/dL 12/17/16 Range/Units 06:26 Sodium (137-145) mmol/L Potassium (3.5-5.1) mmol/L Chloride (98-107) mmol/L BUN (7-17) mg/dL Creatinine (0.52-1.04) mg/dL Glucose (74-99) mg/dL POC Glucose (mg/dL) 173 H (75-99) mg/dL Assessment and Plan (1) COPD exacerbation Status: Acute (2) Acute bronchitis Status: Acute (3) Acute exacerbation of chronic obstructive airways disease Status: Acute (4) Chronic a-fib Status: Acute (5) Systolic CHF, acute on chronic Status: Acute (6) CAD (coronary artery disease) Status: Acute (7) Congestive heart failure Status: Acute Plan: Plan dated 12/17/2016 The patient is doing better. She was started on standard therapy including short acting beta agonist short acting muscarinic antagonist as well as long- acting beta agonist and inhaled corticosteroids and systemic corticosteroids. He is also being treated for CHF. Additional recommendations suggestions are forthcoming. Likely discharge in next 2 days or so. Time with Patient: Less than 30
[2016-12-17 12:17] LABS: Glucose,Whole Blood 168 mg/dL (75-99)
[2016-12-17] MEDS: HYDROcodone/APAP 5-325MG 1 EACH TAB PO PRN ×2 (12:37→20:51)
[2016-12-17] MEDS: SODIUM CHLORIDE 0.9% 1,000 ML IV SCH (13:58)
--- NOTE | 2016-12-17 14:11 | PN ---
This is a lady with exacerbation of COPD with history of smoking. At the time of my evaluation, she is a little bit better in terms of breathing, but she still has bilateral wheezing, which is significant. She has chronic atrial fibrillation. Exacerbation is mostly of COPD, rather than CHF. However, this morning, her creatinine has jumped quite a bit. Her Lasix has been held. I am asking that we hold the lisinopril as well and seek nephrology input if the creatinine does not come down. She has a combination of predominantly exacerbation of COPD and to some extent CHF as well which seems to have improved. Her BUN is 82, creatinine is 1.9, which is a significant increase compared to the labs from 12/14. Physical examination revealed a blood pressure of 127/70, pulse rate is about 80 per minute. HEENT unremarkable. Fundus was not examined by me. There is evidence of JVD 1 cm, no carotid bruit. Heart exam reveals S1, S2 with irregular rhythm. Lungs reveal bilateral scattered rhonchi, both expiratory and inspiratory. Abdomen is soft. Lower extremities reveal trace edema. CENTRAL NERVOUS SYSTEM: Grossly no focal deficits. IMPRESSION: 1. Exacerbation of congestive heart failure, which has improved. 2. Exacerbation of chronic obstructive pulmonary disease on steroids and bronchodilators. 3. History of probably acute renal injury with some significant prerenal component. Will discontinue Lasix, hold lisinopril and if labs do not improve, seek nephrology input. I discussed my thoughts in detail with the patient. Thank you very much for the consult.
[2016-12-17 17:35] LABS: Glucose,Whole Blood 177 mg/dL (75-99)
[2016-12-17 18:54] LABS: Calcium 8.5 mg/dL (8.4-10.2)
[2016-12-17 19:02] LABS: Potassium 6.2 mmol/L (3.5-5.1)
[2016-12-17] MEDS ORDERED: SODIUM POLYSTYRENE SULFONATE 15 GM/60 ML BOTTLE PO STA (19:47)
[2016-12-17] MEDS: BUDESONIDE 1 MG/2 ML NEBU INHALATION SCH (19:59)
[2016-12-17 21:29] LABS: Glucose,Whole Blood 169 mg/dL (75-99)
[2016-12-17] MEDS: FLUCONAZOLE IN NACL,ISO-OSM 100 MG in SALINE 1 50ML.BAG IVPB SCH (22:01)
[2016-12-17] MEDS: AMOXIC-POT CLAV 500-125 MG 1 EACH TAB PO SCH (22:02)
[2016-12-17] MEDS: ATORVASTATIN 80 MG TAB PO SCH (22:04)
[2016-12-17] MEDS: ASPIRIN 81 MG CHEW PO SCH (22:06)
[2016-12-18 05:57] LABS: Glucose,Whole Blood 149 mg/dL (75-99)
[2016-12-18 06:29] LABS: Calcium 8.3 mg/dL (8.4-10.2); Potassium 5.5 mmol/L (3.5-5.1)
[2016-12-18] MEDS: methylPREDNISolone SOD SUCCI 125 MG/2 ML VIAL IV SCH ×2 (06:51→12:29)
[2016-12-18] MEDS: hydrALAZINE HCL 25 MG TAB PO SCH ×3 (06:52→23:07)
[2016-12-18] MEDS: SODIUM CHLORIDE 0.9% 1,000 ML IV SCH (06:52)
[2016-12-18] MEDS: INSULIN LISPRO (humaLOG) 300 UNIT/3 ML VIAL SQ SCH ×4 (06:53→23:07)
[2016-12-18] MEDS: LEVOTHYROXINE 125 MCG TAB PO SCH (06:53)
[2016-12-18] MEDS: IPRATROPIUM-ALBUTEROL 3 ML NEB INHALATION SCH ×4 (08:22→20:41)
[2016-12-18] MEDS: BUDESONIDE 1 MG/2 ML NEBU INHALATION SCH ×2 (08:22→20:41)
[2016-12-18] MEDS: FLUCONAZOLE IN NACL,ISO-OSM 100 MG in SALINE 1 50ML.BAG IVPB SCH (08:54)
[2016-12-18] MEDS: APIXABAN 2.5 MG TABLET PO SCH ×2 (08:58→23:06)
[2016-12-18] MEDS: AMOXIC-POT CLAV 500-125 MG 1 EACH TAB PO SCH ×2 (08:58→23:06)
[2016-12-18] MEDS: DILTIAZEM ORAL 30 MG TAB PO SCH ×3 (08:59→23:06)
[2016-12-18] MEDS: METOPROLOL TARTRATE 50 MG TAB PO SCH ×3 (09:00→23:09)
[2016-12-18] MEDS: CLOPIDOGREL 75 MG TAB PO SCH (09:00)
[2016-12-18] MEDS: FAMOTIDINE 20 MG TAB PO SCH (09:00)
--- NOTE | 2016-12-18 09:32 | XR ---
EXAMINATION TYPE: XR chest 1V portable DATE OF EXAM: 12/18/2016 9:23 AM Comparison: 12/14/2016 Clinical History: 61-year-old female with shortness of breath. Findings: The heart is mildly moderately enlarged. Mild diffuse interstitial prominence. There is biapical pleu ral parenchymal scarring. Some strandy atelectasis at the right lung base. Impression: Cardiomegaly and COPD. There is some accentuation of the interstitium. Correlate for possible mild CH F and pulmonary vascular congestion.
--- NOTE | 2016-12-18 10:24 | PN ---
DATE OF SERVICE: 12/17/2016 PRESENTING COMPLAINT: Short of breath, tired. INTERVAL HISTORY: This patient presented with COPD exacerbation, CHF exacerbation. Patient's renal function has gone off now. Does feel weak and tired. Raspy cough. Decreased oral intake. Review of systems done for constitutional, cardiovascular, GI, pulmonary; relevant findings as above. Current medications are reviewed and include Augmentin, bronchodilators, IV Solu-Medrol. On examination, temperature 97, pulse 82, respirations 18, blood pressure 103/60, pulse 96% on 3 liters. GENERAL APPEARANCE: In bed, tired-appearing. EYES: Pupils equal. Conjunctivae normal. HEENT: Oral cavity showing white patches. NECK: JVD unable to assess. Respiratory effort increased. LUNGS: Diminished breath sounds, expiratory wheezing. CARDIOVASCULAR: Irregular heart sounds. ABDOMEN: Soft, nontender. PSYCHIATRY: Alert and oriented x3. Mood and affect tired appearing. INVESTIGATIONS: Potassium 6.2. BUN 98, creatinine 2.20. ASSESSMENT: 1. Acute on chronic congestive heart failure exacerbation from systolic dysfunction; ejection fraction 30% to 35%, from underlying coronary artery disease, now compensated. 2. Acute renal failure, prerenal, from diuresis. This appears to be all prerenal. 3. Hyperkalemia in setting of acute renal failure, MARIBEL inhibitor. 4. Persistent atrial flutter fibrillation with rapid ventricular presentation, now controlled. 5. Acute severe chronic obstructive pulmonary disease exacerbation in an active smoker, slow to respond. 6. Restless leg syndrome. 7. Fibromyalgia. 8. Hyperlipidemia. 9. Essential hypertension. 10. Primary osteoarthritis of multiple joints bilaterally. 11. Chronic hypoxic respiratory failure from underlying chronic COPD, on 2 liters of oxygen at home. 12. Hypothyroidism. 13. Moderate secondary pulmonary hypertension secondary to chronic obstructive pulmonary disease. 14. Severe tricuspid regurgitation, nonrheumatic. 15. Oral candidiasis secondary to steroid use. PLAN: At this time we will add Diflucan 100 mg a day. Patient's nebulized bronchodilator to be continued. We will cut back on the Solu-Medrol. Patient will be hydrated. Patient's MARIBEL inhibitor has been held. We will also give Kayexalate. Repeat labs in the morning.
[2016-12-18 12:07] LABS: Glucose,Whole Blood 138 mg/dL (75-99)
--- NOTE | 2016-12-18 15:08 | P.PN ---
Subjective Principal diagnosis: Shortness of breath this is a 61-year-old female patient with history of severe COPD, peripheral vascular disease, PAD with prior PTCA of the right superficial femoral artery, paroxysmal atrial fibrillation, who presented to the hospital primarily with symptoms of worsening shortness of breath and palpitations. She has been being treated for congestive heart failure did receive IV Lasix and is currently on by mouth Lasix. She was also found to be in atrial fibrillation with a rapid ventricular response, initiated on IV Cardizem and changed over to by mouth Cardizem. She is currently on by mouth Cardizem 30 3 times a day along with her beta stu.She is on Eliquis for anticoagulation.In view of the fact that the patient is on Eliquis, aspirin, and Plavix, we will decrease her dose of Eliquis to 2-1/2 mg one tablet by mouth twice a day. Patient continues to have significant amount of wheezing on examination today. Had some diarrhea through the night. Overall from the heart standpoint, patient has been stable. Objective - Vital Signs Vital signs: Vital Signs Temp 97.1 F L 12/18/16 08:00 Pulse 90 12/18/16 13:44 Resp 18 12/18/16 13:27 BP 120/59 12/18/16 11:46 Pulse Ox 92 L 12/18/16 11:46 Intake & Output 12/17/16 12/18/16 12/18/16 18:59 06:59 18:59 Intake Total 1130 750 Output Total 800 200 200 Balance 330 -200 550 Weight 73.3 kg Intake: IV 300 600 Sodium Chloride 0.9% 1, 300 600 000 ml @ 75 mls/hr IV . [id number] YOSELIN Rx#:[id number] Intake, IV Titration 50 Amount Fluconazole in NaCl,Iso- 50 Osm 100 mg In Saline 1 50ml.bag @ 50 mls/hr IVPB DAILY YOSELIN Rx#:[id number] Oral 830 100 Output: Urine 800 200 200 Other: Voiding Method Toilet Toilet # Voids 2 2 # Bowel Movements 1 - Exam PHYSICAL EXAMINATION: HEENT: [Head is atraumatic, normocephalic. Pupils equal, round. Neck is supple. There is no elevated jugular venous pressure.] HEART EXAMINATION: heart S1 and S2 irregular irregular CHEST EXAMINATION:Lungs reveal scattered coarse wheezing throughout. ABDOMEN: [ Soft, nontender. Bowel sounds are heard. No organomegaly noted]. EXTREMITIES:[ 1+ peripheral pulses with trace evidence of peripheral edema and no calf tenderness noted]. NEUROLOGIC [patient is awake, alert and oriented -3.] . - Labs CBC & Chem 7: 12/14/16 14:45 12/18/16 05:43 Labs: Abnormal Lab Results - Last 24 Hours (Table) 12/17/16 12/17/16 12/17/16 Range/Units 17:01 18:26 20:46 Sodium 128 L (137-145) mmol/L Potassium 6.2 H* (3.5-5.1) mmol/L Chloride 88 L (98-107) mmol/L BUN 98 H* (7-17) mg/dL Creatinine 2.20 H (0.52-1.04) mg/dL Glucose 168 H (74-99) mg/dL POC Glucose (mg/dL) 177 H 169 H (75-99) mg/dL Calcium (8.4-10.2) mg/dL 12/18/16 12/18/16 12/18/16 Range/Units 05:43 05:50 12:05 Sodium 129 L (137-145) mmol/L Potassium 5.5 H (3.5-5.1) mmol/L Chloride 88 L (98-107) mmol/L BUN 103 H* (7-17) mg/dL Creatinine 2.40 H (0.52-1.04) mg/dL Glucose 145 H (74-99) mg/dL POC Glucose (mg/dL) 149 H 138 H (75-99) mg/dL Calcium 8.3 L (8.4-10.2) mg/dL Assessment and Plan (1) Systolic CHF, acute on chronic Status: Acute (2) Chronic a-fib Status: Acute (3) COPD exacerbation Status: Acute (4) EtOH dependence Status: Acute (5) Hypothyroid Status: Acute (6) NICM (nonischemic cardiomyopathy) Status: Acute (7) Nicotine dependence Status: Acute (8) PAD (peripheral artery disease) Status: Acute Plan: From cardiology's perspective, we will recommend to continue Cardizem along with beta stu. We will continue the Eliquis to 2-1/2 mg one tablet by mouth twice a day, continue baby aspirin along with Plavix. Continue current dose of by mouth Lasix. Upon discharge, follow-up appointment will be made with Dr. Milian. We will follow this patient with you now on an as-needed basis only. Please don't hesitate TO call with any questions. DNP note has been reviewed, I agree with a documented findings and plan of care. Patient was seen and examined.
[2016-12-18] MEDS ORDERED: FUROSEMIDE 10 MG/ML 4 ML VIAL IV STA (15:13)
--- NOTE | 2016-12-18 15:53 | CONS ---
DATE OF CONSULTATION: REASON FOR CONSULTATION: Renal failure. HISTORY OF PRESENT ILLNESS: Patient is a 61-year-old female who was admitted to the hospital with shortness of breath on 12/14/2016. Patient has been treated for exacerbation of COPD. She states that currently she is feeling worse, with worsening shortness of breath. Patient has also been maintained on IV fluids. She does have cardiomyopathy with EF of 30% to 35%. Patient was on Lasix as well, which is now discontinued. Her serum creatinine was at 0.76 mg/dL on 12/14/2016 and now it is up to 2.4 mg/dL. Patient states she has been voiding. No significant nephrotoxic medications are noted. Intravenous fluids are running at 75 mL/hour. Patient has not had any IV contrast. Her blood pressure has been borderline, with systolic around 109 and 92 mmHg this morning. PAST MEDICAL HISTORY: 1. COPD. 2. CHF/cardiomyopathy, EF of 30% to 35%. 3. Peripheral vascular disease. 4. Hypertension. 5. Dyslipidemia. 6. Type 2 diabetes, maintained on insulin. 7. Obesity. 8. History of DC. 9. Gastroesophageal reflux disease. 10. Atrial fibrillation/flutter. 11. Fibromyalgia. 12. History of colonic polyps. 13. Osteoarthritis. PAST SURGICAL HISTORY: 1. Bowel resection. 2. Cardiac ablation. 3. . 4. Cardiac catheterization. 5. Tubal ligation. SOCIAL HISTORY: Patient is an ex-smoker. No history of drug abuse or alcohol abuse. Medications as outpatient included: 1. Synthroid. 2. Spiriva. 3. Lopressor. 4. Hydralazine. 5. Ecotrin. 6. Pepcid. 7. Lasix. 8. Corder. 9. Lipitor. 10. Plavix. 11. Vasotec. 12. Ativan. 13. Ambien. 14. Eliquis. ALLERGIES include: 1. CIPRO. 2. SYMBICORT. On examination, patient is currently comfortable, mildly short of breath, not in any acute distress. Blood pressure was 120/59, heart rate 78 per minute. She is afebrile. EXAMINATION OF THE HEART: S1 and S2. EXAMINATION OF THE LUNGS: Bilateral breath sounds are heard. Decreased breath sounds in bases. Wheezing is heard. Minimal crackles are heard as well. ABDOMEN: Soft, obese. Examination of lower extremities shows trace edema bilaterally. LATHE WINDER exam is grossly intact. Patient is moving all 4 extremities. Labs reveal sodium 129, potassium 5.5, BUN 103, serum creatinine 2.4. UA is not available. ASSESSMENT: 1. Acute kidney injury, most likely acute tubular necrosis, currently non-oliguric; however, accurate urine output is not charted. At this time patient appears to be mildly volume-overloaded. I will give her a dose of Lasix and we will decrease the IV fluids. Chest x-ray was ordered this morning which did show evidence of some pulmonary vascular congestion. 2. Hyperkalemia associated with acute kidney injury. Expect improvement with diuretics. 3. Hypervolemic hyponatremia, expected to improve with diuresis. 4. Chronic obstructive pulmonary disease exacerbation. 5. Disproportionately elevated BUN secondary to steroids. 6. Hypothyroidism. 7. Hypertension. 8. History of atrial fibrillation, maintained on Eliquis. PLAN: Check chest x-ray, and since there was evidence of pulmonary vascular congestion I will Hep-Lock IV fluids. Will give her a dose of Lasix x1, check bladder scan for urine output and rule out urine retention. Check ultrasound of the kidneys. Check urinalysis and repeat labs in a.m. Avoid hypotension. I will decrease the hydralazine and add parameters. Thank you for this consultation. Will continue to follow the patient with you during her hospitalization.
--- NOTE | 2016-12-18 16:41 | P.PN ---
Subjective This is a very pleasant 61-year-old female patient who follows with Dr. Chika Lloyd as her primary care physician. She has a history of severe peripheral vascular disease with claudication status post PTBA, systolic congestive heart failure with an ejection fraction of 30-35%, coronary artery disease, gastroesophageal reflux disease, hyperlipidemia, hypertension, pulmonary hypertension, atrial fibrillation/flutter/atrial tachycardia with previous ablation hypothyroidism. She also follows with Dr. Guallpa in our office for severe oxygen dependent Gold stage IV chronic obstructive pulmonary disease. Her FEV1 value is 30% of predicted. She presented here on 12/14/2016 with complaints of increasing shortness of breath, cough and congestion. She had thick yellow sputum production. No chills or night sweats. He was fatigued and weak. So had noted a 5 pound weight gain. She is seen today 12/16 in consultation on the selective care unit. She is awake and alert. She is dyspneic with minimal conversation a minimal activity. She has a loose nonproductive cough currently. She denies any chest pain palpitations lightheadedness or dizziness. Her chest x-ray revealed evidence of chronic obstructive pulmonary disease and cardiomegaly but no acute cardiopulmonary process. An echocardiogram revealed impaired left ventricular systolic function with estimated ejection fraction 35-40%. Right ventricle was severely enlarged. She also had a right ventricular systolic pressure of 46 mmHg. She' s been treated for both acute exacerbation of CHF along with COPD exacerbation. On 12/18/2016 the patient is being seen in follow-up. The patient remains short of breath bronchospastic and wheezy. She continues to have a congested cough unable to bring up much sputum. Note that she has developed extensive oropharyngeal thrush and the patient started on Diflucan IV. She is having some occasional difficulty with swallowing. Same time, the patient remains in acute kidney injury and this is attributed to diuretics and cardiorenal syndrome. Note that the diuretics have been discontinued and the patient's renal function is being closely monitored. She has declined a Grimaldo catheter insertion. The diuretics have been discontinued. MARIBEL inhibitor has been discontinued. Potassium level is at 5.5 which is lower compared to yesterday. Creatinine is at a 2.4. The patient continues to be on IV fluids. Objective - Vital Signs Vital signs: Vital Signs Temp 97 F L 12/18/16 15:49 Pulse 84 12/18/16 16:29 Resp 18 12/18/16 15:49 BP 125/55 12/18/16 15:49 Pulse Ox 91 L 12/18/16 15:49 Intake & Output 12/17/16 12/18/16 12/18/16 18:59 06:59 18:59 Intake Total 1130 750 Output Total 800 200 200 Balance 330 -200 550 Weight 73.3 kg Intake: IV 300 600 Sodium Chloride 0.9% 1, 300 600 000 ml @ 75 mls/hr IV . [id number] YOSELIN Rx#:[id number] Intake, IV Titration 50 Amount Fluconazole in NaCl,Iso- 50 Osm 100 mg In Saline 1 50ml.bag @ 50 mls/hr IVPB DAILY YOSELIN Rx#:[id number] Oral 830 100 Output: Urine 800 200 200 Other: Voiding Method Toilet Toilet Toilet # Voids 2 2 # Bowel Movements 1 - Exam Obese, comfortable likely distress. The patient has cushingoid features related to chronic steroid use.Head exam was generally normal. There was no scleral icterus or corneal arcus. Mucous membranes were moist. Neck is supple and there is extensive oropharyngeal thrush and there is no goiter or neck mass that this point. Lung sounds are diminished and there is prolongation of expiratory phase of breathing and diffuse extremity wheezes throughout the lung reynolds bilaterally.Cardiac exam revealed the PMI to be normally situated and sized. The rhythm was regular and no extrasystoles were noted during several minutes of auscultation. The first and second heart sounds were normal and physiologic splitting of the second heart sound was noted. There were no murmurs , rubs, clicks, or gallops.Abdominal exam revealed normal bowel sounds. The abdomen was soft, non-tender, and without masses, organomegaly, or appreciable enlargement of the abdominal aorta.Examination of the extremities revealed easily palpable radial, femoral and pedal pulses. There was no cyanosis, clubbing or edema. - Labs CBC & Chem 7: 12/14/16 14:45 12/18/16 05:43 Labs: Abnormal Lab Results - Last 24 Hours (Table) 12/17/16 12/17/16 12/17/16 Range/Units 17:01 18:26 20:46 Sodium 128 L (137-145) mmol/L Potassium 6.2 H* (3.5-5.1) mmol/L Chloride 88 L (98-107) mmol/L BUN 98 H* (7-17) mg/dL Creatinine 2.20 H (0.52-1.04) mg/dL Glucose 168 H (74-99) mg/dL POC Glucose (mg/dL) 177 H 169 H (75-99) mg/dL Calcium (8.4-10.2) mg/dL 12/18/16 12/18/16 12/18/16 Range/Units 05:43 05:50 12:05 Sodium 129 L (137-145) mmol/L Potassium 5.5 H (3.5-5.1) mmol/L Chloride 88 L (98-107) mmol/L BUN 103 H* (7-17) mg/dL Creatinine 2.40 H (0.52-1.04) mg/dL Glucose 145 H (74-99) mg/dL POC Glucose (mg/dL) 149 H 138 H (75-99) mg/dL Calcium 8.3 L (8.4-10.2) mg/dL Assessment and Plan Plan: Assessment 1 acute COPD exacerbation, currently on a combination of bronchodilators steroids and antibiotics 2 acute CHF exacerbation. The patient is an ejection fraction of 30-35% 3 acute kidney injury with diminished urine output, rule out acute kidney injury secondary to ATN, rule out prerenal azotemia. The patient's potassium level is at 5.5. The patient's is being resuscitated IV fluids at the urine output remains low. Nephrology is also on the case 4 chronic atrial fibrillation 5 extensive oropharyngeal thrush 6 coronary artery disease 7 hypertension 8 hyperlipidemia 9 secondary pulmonary hypertension 10 hypothyroidism 11 obesity with obvious condition at features 12 peripheral vascular disease with claudication with previous vascular intervention Plan Continue the bronchodilators. Continue the antibiotics. Agree on Diflucan. The Solu Medrol to 40 Every 12 Hours As the Patient Is Experiencing Side Effects to Systemic Steroids. Continue Fluid Resuscitation and Monitor the Urine Output and Renal Function. Nephrology Is on the Case. Cardiology Is on the Case. We'll Continue to Follow. Condition Is Critical and the Outcome Is Obviously Poor Baseline Above-Mentioned Comorbidities.
[2016-12-18] MEDS ORDERED: SODIUM POLYSTYRENE SULFONATE 15 GM/60 ML BOTTLE PO STA (16:43)
--- NOTE | 2016-12-18 17:01 | US ---
EXAMINATION TYPE: US kidneys/renal and bladder DATE OF EXAM: 12/18/2016 4:50 PM COMPARISON: CT in pacs CLINICAL HISTORY: renal failure. EXAM MEASUREMENTS: Right Kidney: 9.1 x 4.0 x 4.1 cm Left Kidney: 10.1 x 6.2 x 5.0 cm Right Kidney: wnl Left Kidney: wnl Bladder: wnl Bilateral Jets seen: right jet not seen There is no evidence for hydronephrosis at this point in time. No nephrolithiasis is seen. No lindsay s are identified. The urinary bladder is anechoic. Bilateral ureteral jets are seen. IMPRESSION: Nonvisualization of right ureteral jet. Otherwise unremarkable study.
[2016-12-18 17:23] LABS: Glucose,Whole Blood 147 mg/dL (75-99)
[2016-12-18 21:26] LABS: Glucose,Whole Blood 155 mg/dL (75-99)
[2016-12-18] MEDS: ATORVASTATIN 80 MG TAB PO SCH (23:07)
[2016-12-18] MEDS: ASPIRIN 81 MG CHEW PO SCH (23:07)
[2016-12-18] MEDS: methylPREDNISolone SOD SUCCI 40 MG/ML 1 ML VIAL IV SCH (23:08)
[2016-12-18] MEDS: MELATONIN 5 MG TABLET PO PRN (23:51)
--- NOTE | 2016-12-19 06:05 | PN ---
DATE OF SERVICE: 12/18/2016 PRESENTING COMPLAINT: Short of breath, tired. INTERVAL HISTORY: This patient presented with COPD exacerbation, CHF exacerbation, got IV Lasix, went into renal failure, hyperkalemia for which Kayexalate was given. Also started on Diflucan for several oropharyngeal candidiasis. Continues to feel weak and tired. Review of systems done for constitutional, cardiovascular, GI, pulmonary; relevant findings as above. Current medications are reviewed that include Augmentin, DuoNeb, Diflucan, Solu-Medrol. On examination, temperature 97.1, pulse 77, respiration 18, blood pressure 92/62, pulse ox 97% on 2 L. GENERAL APPEARANCE: Lying in bed, tired appearing. EYES: Pupils equal. Conjunctivae normal. NECK: JVD unable to assess. Mass not palpable. RESPIRATORY: Effort increased. LUNGS: Diminished breath sounds. Prolonged expiration. Mild expiratory crackles. CARDIOVASCULAR: Heart sounds irregular. Minimal edema. ABDOMEN: Soft, nontender. Liver and spleen not palpable. PSYCHIATRY: Alert and oriented x3. Mood and affect anxious appearing. INVESTIGATIONS: Sodium 129, potassium 5.5. BUN 103, creatinine 2.40. ASSESSMENT: 1. Acute on chronic congestive heart failure exacerbation from systolic dysfunction; ejection fraction 30% to 35%, from underlying coronary artery disease, clinically appears to be compensated. 2. Acute renal failure, prerenal from diuresis. Appears to be prerenal. Nephrology was consulted. 3. Hyperkalemia in the setting of acute renal failure. MARIBEL inhibitor was discontinued. 4. Persistent atrial flutter fibrillation with rapid on presentation, now better controlled. 5. Acute severe chronic obstructive pulmonary disease exacerbation in an active smoker. Lung function around 30%, slow to respond. 6. Restless leg syndrome. 7. Fibromyalgia. 8. Hyperlipidemia. 9. Essential hypertension. 10. Primary osteoarthritis in multiple joints, bilaterally. 11. Chronic hypoxic respiratory failure from underlying chronic COPD on 2 L of oxygen at home. 12. Hypothyroidism. 13. Moderate secondary pulmonary hypertension secondary to chronic COPD. 14. Severe tricuspid regurgitation, nonrheumatic. 15. Oral pharyngeal candidiasis, severe, secondary to steroid use, antibiotics. PLAN: Continue current medication and treatment plan. Patient's dose of steroids was cut back. Nephrology was consulted. We will give one more dose of Kayexalate. Will follow.
[2016-12-19 06:07] LABS: Calcium 8.3 mg/dL (8.4-10.2); Potassium 4.5 mmol/L (3.5-5.1)
[2016-12-19 06:50] LABS: Glucose,Whole Blood 172 mg/dL (75-99)
[2016-12-19] MEDS: LEVOTHYROXINE 125 MCG TAB PO SCH (07:09)
[2016-12-19] MEDS: INSULIN LISPRO (humaLOG) 300 UNIT/3 ML VIAL SQ SCH ×4 (07:09→21:33)
[2016-12-19] MEDS: BUDESONIDE 1 MG/2 ML NEBU INHALATION SCH ×2 (07:51→20:10)
[2016-12-19] MEDS: IPRATROPIUM-ALBUTEROL 3 ML NEB INHALATION SCH ×4 (07:51→20:10)
[2016-12-19] MEDS: FLUCONAZOLE IN NACL,ISO-OSM 100 MG in SALINE 1 50ML.BAG IVPB SCH (09:33)
[2016-12-19] MEDS: DILTIAZEM ORAL 30 MG TAB PO SCH ×3 (09:33→21:33)
[2016-12-19] MEDS: FAMOTIDINE 20 MG TAB PO SCH (09:34)
[2016-12-19] MEDS: AMOXIC-POT CLAV 500-125 MG 1 EACH TAB PO SCH ×2 (09:34→21:32)
[2016-12-19] MEDS: hydrALAZINE HCL 25 MG TAB PO SCH ×2 (09:34→21:32)
[2016-12-19] MEDS: CLOPIDOGREL 75 MG TAB PO SCH (09:35)
[2016-12-19] MEDS: METOPROLOL TARTRATE 50 MG TAB PO SCH ×3 (09:35→21:33)
[2016-12-19] MEDS: methylPREDNISolone SOD SUCCI 40 MG/ML 1 ML VIAL IV SCH ×2 (09:35→21:33)
[2016-12-19] MEDS: APIXABAN 2.5 MG TABLET PO SCH ×2 (09:35→21:32)
--- NOTE | 2016-12-19 11:50 | PN ---
Patient is seen for followup for acute kidney injury. She appeared to be mildly volume overloaded yesterday. She was diuresed. IV fluids have been held. Patient has had good urine output. Her renal function has also improved with creatinine now at 1.7 from 2.4 yesterday. Her admission creatinine was at 0.7 6 mg/dL on 12/14/2016. She is currently being treated for COPD exacerbation. On examination, blood pressure is 112/60, heart rate 96 per minute. She is afebrile. EXAMINATION OF THE HEART: S1 and S2. EXAMINATION OF THE LUNGS: Bilateral breath sounds are heard, very poor air entry bilaterally and no obvious wheezing is heard at this time. ABDOMEN: Soft, obese. Examination of lower extremities shows edema trace bilaterally. YOUTH SUPPORT WORKER exam is grossly intact. Labs show sodium 133, potassium 4.5, BUN 108, serum creatinine 1.7 mg/dL. ASSESSMENT: 1. Acute kidney injury, acute tubular necrosis, currently improved. Patient was initially diuresed and then placed on IV fluids. Her creatinine has improved to some degree. I will continue to maintain her off of IV fluids for now. Her x-ray did show some pulmonary vascular congestion from yesterday. We need to avoid hypotension. The hydralazine was decreased yesterday as well. The ultrasound is unremarkable. We will continue to monitor the renal function and repeat labs in a.m. 2. Cardiomyopathy with ejection fraction of 30% to 35%. 3. Moderate pulmonary hypertension. 4. Acute chronic obstructive pulmonary disease exacerbation, maintained on steroid, antibiotics and bronchodilators. 5. Hyperkalemia associated with acute kidney injury, currently improved. 6. Chronic atrial fibrillation. 7. Oropharyngeal thrush, maintained on Diflucan. PLAN: Continue off of IV fluids. Repeat labs in the a.m. Avoid hypotension.
[2016-12-19 12:04] LABS: Glucose,Whole Blood 160 mg/dL (75-99)
[2016-12-19 17:08] LABS: Glucose,Whole Blood 155 mg/dL (75-99)
--- NOTE | 2016-12-19 17:24 | P.PN ---
Subjective This is a very pleasant 61-year-old female patient who follows with Dr. Chika Lloyd as her primary care physician. She has a history of severe peripheral vascular disease with claudication status post PTBA, systolic congestive heart failure with an ejection fraction of 30-35%, coronary artery disease, gastroesophageal reflux disease, hyperlipidemia, hypertension, pulmonary hypertension, atrial fibrillation/flutter/atrial tachycardia with previous ablation hypothyroidism. She also follows with Dr. Guallpa in our office for severe oxygen dependent Gold stage IV chronic obstructive pulmonary disease. Her FEV1 value is 30% of predicted. She presented here on 12/14/2016 with complaints of increasing shortness of breath, cough and congestion. She had thick yellow sputum production. No chills or night sweats. He was fatigued and weak. So had noted a 5 pound weight gain. She is seen today 12/16 in consultation on the [facility] care unit. She is awake and alert. She is dyspneic with minimal conversation a minimal activity. She has a loose nonproductive cough currently. She denies any chest pain palpitations lightheadedness or dizziness. Her chest x-ray revealed evidence of chronic obstructive pulmonary disease and cardiomegaly but no acute cardiopulmonary process. An echocardiogram revealed impaired left ventricular systolic function with estimated ejection fraction 35-40%. Right ventricle was severely enlarged. She also had a right ventricular systolic pressure of 46 mmHg. She' s been treated for both acute exacerbation of CHF along with COPD exacerbation. She is seen again today 12/19/2016 in follow-up on the [facility] care unit. She has been slow to progress. The last 2 days she has been improving and the pulmonary standpoint. She is less short of breath today as compared to yesterday. Less coughing. Less wheezing and dyspnea on exertion. Her renal function is improving with a current creatinine of 1.70. An ultrasound of the kidneys did not reveal any evidence of mass or hydronephrosis. Objective - Vital Signs Vital signs: Vital Signs Temp 96.0 F L 12/19/16 04:00 Pulse 98 12/19/16 16:00 Resp 20 12/19/16 16:00 BP 116/64 12/19/16 16:00 Pulse Ox 94 L 12/19/16 16:00 Intake & Output 12/18/16 12/19/16 12/19/16 18:59 06:59 18:59 Intake Total 975 180 Output Total 200 600 Balance 775 -600 180 Weight 71.4 kg Intake: IV 825 Sodium Chloride 0.9% 1, 825 000 ml @ 75 mls/hr IV . [id number] YOSELIN Rx#:[id number] Intake, IV Titration 50 Amount Fluconazole in NaCl,Iso- 50 Osm 100 mg In Saline 1 50ml.bag @ 50 mls/hr IVPB DAILY YOSELIN Rx#:[id number] Oral 100 180 Output: Urine 200 600 Other: Voiding Method Toilet Toilet # Voids 2 2 1 # Bowel Movements 4 1 - Exam Obese, comfortable likely distress. The patient has cushingoid features related to chronic steroid use.Head exam was generally normal. There was no scleral icterus or corneal arcus. Mucous membranes were moist. Neck is supple and there is extensive oropharyngeal thrush and there is no goiter or neck mass that this point. Lung sounds are diminished and there is prolongation of expiratory phase of breathing and diffuse extremity wheezes throughout the lung reynolds bilaterally.Cardiac exam revealed the PMI to be normally situated and sized. The rhythm was regular and no extrasystoles were noted during several minutes of auscultation. The first and second heart sounds were normal and physiologic splitting of the second heart sound was noted. There were no murmurs , rubs, clicks, or gallops.Abdominal exam revealed normal bowel sounds. The abdomen was soft, non-tender, and without masses, organomegaly, or appreciable enlargement of the abdominal aorta.Examination of the extremities revealed easily palpable radial, femoral and pedal pulses. There was no cyanosis, clubbing or edema. - Labs CBC & Chem 7: 12/14/16 14:45 12/19/16 05:43 Labs: Abnormal Lab Results - Last 24 Hours (Table) 12/18/16 12/18/16 12/19/16 Range/Units 17:20 21:03 05:43 Sodium 133 L (137-145) mmol/L Chloride 93 L (98-107) mmol/L BUN 108 H* (7-17) mg/dL Creatinine 1.70 H (0.52-1.04) mg/dL Glucose 156 H (74-99) mg/dL POC Glucose (mg/dL) 147 H 155 H (75-99) mg/dL Osmolality 314 H (280-301) mosm/kg Calcium 8.3 L (8.4-10.2) mg/dL 12/19/16 12/19/16 12/19/16 Range/Units 06:14 12:02 16:59 Sodium (137-145) mmol/L Chloride (98-107) mmol/L BUN (7-17) mg/dL Creatinine (0.52-1.04) mg/dL Glucose (74-99) mg/dL POC Glucose (mg/dL) 172 H 160 H 155 H (75-99) mg/dL Osmolality (280-301) mosm/kg Calcium (8.4-10.2) mg/dL Assessment and Plan Plan: Impression: #1 Acute exacerbation of chronic systolic congestive heart failure. Impaired left ventricular systolic function with estimated ejection fraction 35-40%. #2 Acute exacerbation of severe oxygen dependent chronic obstructive pulmonary disease, Gold stage IV FEV1 value 30% of predicted. #3 Acute on chronic hypoxic respiratory failure secondary to above. #4 Severe peripheral vascular disease with previous PTBA of the right superficial femoral artery, complicated by large anterior abdominal wall hematoma in September 2016. #5 Coronary artery disease with previous myocardial infarction. #6 History of atrial fibrillation/flutter/atrial tachycardia with previous cardiac ablation. #7 Moderate to severe pulmonary hypertension, RVSP 46 mmHg. #8 History of 40+ years 1 to 1-1/2 pack per day smoking however quit approximately August 2016. #9 Hypertension. #10 Hyperlipidemia. #11 Hypothyroidism. Plan: The patient was seen and evaluated by Dr. Guallpa. She is being treated for both COPD and CHF exacerbations. She has been slow to progress. She remains on bronchodilators 4 times a day and when necessary, Pulmicort, IV Solu-Medrol currently down to 40 mg every 12 hours. She is also on Lasix 40 mg twice a day. She is on empiric antibiotics in the form of Augmentin. She is anticoagulated with Eliquis. She is on Pepcid for GI prophylaxis. We will increase her activity as tolerated. We'll continue to follow make further recommendations based on her clinical status.
[2016-12-19 21:15] LABS: Glucose,Whole Blood 173 mg/dL (75-99)
[2016-12-19] MEDS: ASPIRIN 81 MG CHEW PO SCH (21:32)
[2016-12-19] MEDS: ATORVASTATIN 80 MG TAB PO SCH (21:32)
[2016-12-20] MEDS: MELATONIN 5 MG TABLET PO PRN ×2 (01:53→23:32)
[2016-12-20] MEDS: IPRATROPIUM-ALBUTEROL 3 ML NEB INHALATION PRN (02:04)
[2016-12-20 06:26] LABS: Glucose,Whole Blood 157 mg/dL (75-99)
[2016-12-20] MEDS: LEVOTHYROXINE 125 MCG TAB PO SCH (06:31)
[2016-12-20] MEDS: INSULIN LISPRO (humaLOG) 300 UNIT/3 ML VIAL SQ SCH ×4 (06:31→21:17)
--- NOTE | 2016-12-20 07:08 | PN ---
DATE OF SERVICE: 12/19/2016 PRESENTING COMPLAINT: Short of breath. INTERVAL HISTORY: This patient presented with COPD exacerbation and CHF exacerbation, got IV Lasix, went into renal failure and hyperkalemia. Patient also has got severe oropharyngeal candidiasis for which she got Diflucan. Overall feeling better, less weak and tired. ( ). Oral intake is getting better. Review of systems done for constitutional, cardiovascular, GI, pulmonary; relevant findings as above. Current medications are reviewed that include DuoNeb, Augmentin, Solu-Medrol. On examination, afebrile, pulse 90, respiration 18, blood pressure 126/88, pulse ox 98% on 2 L. GENERAL APPEARANCE: Lying in bed, less tired appearing. EYES: Pupils equal. Conjunctivae normal. NECK: JVD not raised. Mass not palpable. RESPIRATORY: Effort increased. LUNGS: Decreased breath sounds, decreased crackles. CARDIOVASCULAR: Heart sounds irregular. Minimal edema. ABDOMEN: Soft, nontender. Liver and spleen not palpable. PSYCHIATRY: Alert and oriented x3, less anxious appearing. INVESTIGATIONS: BUN 108, creatinine 1.70. Potassium 4.5. ASSESSMENT: 1. Acute on chronic congestive heart failure exacerbation from systolic dysfunction; ejection fraction 30% to 35% from underlying coronary artery disease, compensated. 2. Acute renal failure, prerenal from diuresis, appears to be prerenal, some improvement. 3. Hyperkalemia in setting of acute renal failure from MARIBEL inhibitor that was discontinued, improved. 4. Persistent atrial flutter fibrillation with rapid on presentation, better controlled. 5. Acute severe chronic obstructive pulmonary disease exacerbation in an active smoker. Lung function around 30%, slow to respond. 6. Restless leg syndrome. 7. Fibromyalgia. 8. Hyperlipidemia. 9. Essential hypertension. 10. Primary osteoarthritis multiple joints, bilateral. 11. Chronic hypoxic respiratory failure from underlying chronic COPD on 2 L of oxygen at home. 12. Hypothyroidism. 13. Moderate secondary pulmonary hypertension secondary to chronic COPD. 14. Severe tricuspid regurgitation, nonrheumatic. 15. Oropharyngeal candidiasis, severe, ( ) to steroid use, now doing much better with Diflucan. PLAN: Continue current medication and treatment plan. Care was discussed with the patient. The patient is off the Lasix, improving.
[2016-12-20 08:26] LABS: Anisocytosis Slight; CH 32.5; CHCM 31.4; HCT 37.2 % (34.0-46.0); HDW 2.81; HGB 11.7 gm/dL (11.4-16.0); Hypochromasia Slight; MCH 32.7 pg (25.0-35.0); MCHC 31.5 g/dL (31.0-37.0); Macrocytosis Moderate; Mean Platelet Volume 8.4; RBC 3.57 m/uL (3.80-5.40); RDW 16.3 % (11.5-15.5); WBC 8.6 k/uL (3.8-10.6)
[2016-12-20 08:30] LABS: Anion Gap 6 mmol/L; Calcium 8.7 mg/dL (8.4-10.2); Carbon Dioxide 35 mmol/L (22-30); Chloride 93 mmol/L (98-107); Glucose 221 mg/dL (74-99); Non-African American GFR(MDRD) 53 (>60 ml/min/1.73 sqM); Potassium 4.6 mmol/L (3.5-5.1); Sodium 134 mmol/L (137-145)
[2016-12-20 08:35] LABS: Blood Urea Nitrogen 92 mg/dL (7-17)
[2016-12-20] MEDS: BUDESONIDE 1 MG/2 ML NEBU INHALATION SCH ×2 (08:43→20:32)
[2016-12-20] MEDS: IPRATROPIUM-ALBUTEROL 3 ML NEB INHALATION SCH ×4 (08:43→20:32)
[2016-12-20] MEDS: CLOPIDOGREL 75 MG TAB PO SCH (09:47)
[2016-12-20] MEDS: APIXABAN 2.5 MG TABLET PO SCH ×2 (09:47→19:30)
[2016-12-20] MEDS: FAMOTIDINE 20 MG TAB PO SCH (09:48)
[2016-12-20] MEDS: FLUCONAZOLE 100 MG TAB PO SCH (09:48)
[2016-12-20] MEDS: hydrALAZINE HCL 25 MG TAB PO SCH ×2 (09:48→19:29)
[2016-12-20] MEDS: DILTIAZEM ORAL 30 MG TAB PO SCH ×3 (09:48→21:18)
[2016-12-20] MEDS: AMOXIC-POT CLAV 500-125 MG 1 EACH TAB PO SCH ×2 (09:48→19:29)
[2016-12-20] MEDS: METOPROLOL TARTRATE 50 MG TAB PO SCH ×3 (09:49→21:18)
[2016-12-20] MEDS: methylPREDNISolone SOD SUCCI 40 MG/ML 1 ML VIAL IV SCH (09:58)
[2016-12-20 12:06] LABS: Glucose,Whole Blood 191 mg/dL (75-99)
[2016-12-20] MEDS: predniSONE 10 MG TAB PO SCH (12:49)
--- NOTE | 2016-12-20 15:38 | P.PN ---
Subjective This is a very pleasant 61-year-old female patient who follows with Dr. Chika Lloyd as her primary care physician. She has a history of severe peripheral vascular disease with claudication status post PTBA, systolic congestive heart failure with an ejection fraction of 30-35%, coronary artery disease, gastroesophageal reflux disease, hyperlipidemia, hypertension, pulmonary hypertension, atrial fibrillation/flutter/atrial tachycardia with previous ablation hypothyroidism. She also follows with Dr. Guallpa in our office for severe oxygen dependent Gold stage IV chronic obstructive pulmonary disease. Her FEV1 value is 30% of predicted. She presented here on 12/14/2016 with complaints of increasing shortness of breath, cough and congestion. She had thick yellow sputum production. No chills or night sweats. He was fatigued and weak. So had noted a 5 pound weight gain. She is seen today 12/[address] [facility] care unit. She is awake and alert. She is dyspneic with minimal conversation a minimal activity. She has a loose nonproductive cough currently. She denies any chest pain palpitations lightheadedness or dizziness. Her chest x-ray revealed evidence of chronic obstructive pulmonary disease and cardiomegaly but no acute cardiopulmonary process. An echocardiogram revealed impaired left ventricular systolic function with estimated ejection fraction 35-40%. Right ventricle was severely enlarged. She also had a right ventricular systolic pressure of 46 mmHg. She' s been treated for both acute exacerbation of CHF along with COPD exacerbation. She is seen again today 12/19/2016 in follow-up on the [facility] care unit. She has been slow to progress. The last 2 days she has been improving and the pulmonary standpoint. She is less short of breath today as compared to yesterday. Less coughing. Less wheezing and dyspnea on exertion. Her renal function is improving with a current creatinine of 1.70. An ultrasound of the kidneys did not reveal any evidence of mass or hydronephrosis. On 12/20/2016 the patient is being seen in follow-up. She is slightly improved however she started having congested cough and she will benefit from Mucinex. No chills. No fever. Oropharyngeal thrush has recovered. The renal function is also recovered. She is a bit weak and anxious. Objective - Vital Signs Vital signs: Vital Signs Temp 98.0 F 12/20/16 11:27 Pulse 84 12/20/16 15:06 Resp 18 12/20/16 11:27 BP 114/66 12/20/16 11:27 Pulse Ox 94 L 12/20/16 11:27 Intake & Output 12/19/16 12/20/16 12/20/16 18:59 06:59 18:59 Intake Total 360 0 Output Total 0 Balance 360 0 Weight 72.8 kg 72.8 kg Intake: Oral 360 0 Output: Urine 0 Other: Voiding Method Toilet Toilet # Voids 2 1 # Bowel Movements 1 - Exam Obese, comfortable likely distress. The patient has cushingoid features related to chronic steroid use.Head exam was generally normal. There was no scleral icterus or corneal arcus. Mucous membranes were moist. Neck is supple and there is extensive oropharyngeal thrush that has recovered and there is no goiter or neck mass that this point. Lung sounds are diminished and there is prolongation of expiratory phase of breathing and diffuse extremity wheezes throughout the lung reynolds bilaterally.Cardiac exam revealed the PMI to be normally situated and sized. The rhythm was regular and no extrasystoles were noted during several minutes of auscultation. The first and second heart sounds were normal and physiologic splitting of the second heart sound was noted. There were no murmurs, rubs, clicks, or gallops.Abdominal exam revealed normal bowel sounds. The abdomen was soft, non-tender, and without masses, organomegaly , or appreciable enlargement of the abdominal aorta.Examination of the extremities revealed easily palpable radial, femoral and pedal pulses. There was no cyanosis, clubbing or edema. - Labs CBC & Chem 7: 12/20/16 08:06 12/20/16 08:03 Labs: Abnormal Lab Results - Last 24 Hours (Table) 12/19/16 12/19/16 12/20/16 Range/Units 16:59 21:07 06:18 RBC (3.80-5.40) m/uL MCV (80.0-100.0) fL RDW (11.5-15.5) % Sodium (137-145) mmol/L Chloride (98-107) mmol/L Carbon Dioxide (22-30) mmol/L BUN (7-17) mg/dL Creatinine (0.52-1.04) mg/dL Glucose (74-99) mg/dL POC Glucose (mg/dL) 155 H 173 H 157 H (75-99) mg/dL 12/20/16 12/20/16 12/20/16 Range/Units 08:03 08:06 12:04 RBC 3.57 L (3.80-5.40) m/uL MCV 104.0 H (80.0-100.0) fL RDW 16.3 H (11.5-15.5) % Sodium 134 L (137-145) mmol/L Chloride 93 L (98-107) mmol/L Carbon Dioxide 35 H (22-30) mmol/L BUN 92 H* (7-17) mg/dL Creatinine 1.06 H (0.52-1.04) mg/dL Glucose 221 H (74-99) mg/dL POC Glucose (mg/dL) 191 H (75-99) mg/dL Assessment and Plan Plan: Assessment 1 acute COPD exacerbation, currently on a combination of bronchodilators steroids and antibiotics, the patient is slowly improving yet she has not completely recovered 2 acute CHF exacerbation. The patient is an ejection fraction of 30-35% 3 acute kidney injury , resolved 4 chronic atrial fibrillation 5 extensive oropharyngeal thrush, resolved 6 coronary artery disease 7 hypertension 8 hyperlipidemia 9 secondary pulmonary hypertension 10 hypothyroidism 11 obesity with obvious condition at features 12 peripheral vascular disease with claudication with previous vascular intervention Plan Continue the bronchodilators. Continue the antibiotics. This continued IV Solu -Medrol and put the patient a prednisone burst taper starting with 30 mg. Continue the Diflucan. Consider bronchoscopy if no improvement in her condition. Renal function is normalized. Add Mucinex for cough/ CHEST congestion
[2016-12-20] MEDS: guaiFENesin-DM 100-10MG/5ML 10 ML CUP PO SCH ×2 (15:58→23:09)
[2016-12-20 17:17] LABS: Glucose,Whole Blood 152 mg/dL (75-99)
[2016-12-20] MEDS ORDERED: FUROSEMIDE 10 MG/ML 4 ML VIAL IV STA (17:33)
--- NOTE | 2016-12-20 18:14 | PN ---
Patient is seen for followup for acute kidney injury. Her renal function has been improving. She did receive IV fluids, which were then discontinued, and patient received Lasix as well yesterday, as there was evidence of mild hypervolemia. She is currently feeling better with improved respiratory status. Her serum creatinine has improved to 1.06 now from 2.4 mg/dL. Baseline creatinine on 12/14/2016 was 0.76 mg/dL. On examination, blood pressure is 114/66, heart rate 94 per minute. Patient is afebrile. EXAMINATION OF THE HEART: S1 and S2. EXAMINATION OF LUNGS: Bilateral breath sounds are heard. ABDOMEN: Soft, nontender. Examination of lower extremities shows edema 1+ bilaterally. 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 Labs show sodium 134, potassium 4.6, BUN 92, serum creatinine 1.06. Hemoglobin 11.7 g/dL. ASSESSMENT: 1. Acute kidney injury, acute tubular necrosis, currently improved. At this time patient is off of IV fluids and diuretics. I will give her a dose of Lasix and start oral diuretics from tomorrow. 2. Chronic obstructive pulmonary disease exacerbation, slowly improving. 3. Disproportionately elevated BUN secondary to steroids. 4. Chronic atrial fibrillation. 5. Pulmonary hypertension. PLAN: Lasix x1 today IV and then start oral from tomorrow. Continue to avoid hypotension.
[2016-12-20] MEDS: ATORVASTATIN 80 MG TAB PO SCH (19:29)
[2016-12-20] MEDS: ASPIRIN 81 MG CHEW PO SCH (19:29)
[2016-12-20] MEDS: ACETAMINOPHEN TAB 325 MG TAB PO PRN ×2 (19:30→23:32)
[2016-12-20 20:57] LABS: Glucose,Whole Blood 240 mg/dL (75-99)
[2016-12-21 05:47] VITALS: RESP 19
[2016-12-21 05:58] LABS: Glucose,Whole Blood 146 mg/dL (75-99)
--- NOTE | 2016-12-21 06:14 | PN ---
DATE OF SERVICE: 12/20/2016 PRESENTING COMPLAINT: Tired. INTERVAL HISTORY: This patient presented with COPD exacerbation and CHF exacerbation, also went into renal failure from diuresis. Overall candidiasis greatly improved. Feeling better, though tired. Oral intake is improving. Review of systems done for constitutional, cardiovascular, GI, pulmonary; relevant findings as above. Current medications are reviewed that include DuoNeb, Augmentin, Lasix, oral prednisone. On examination, temperature 97.1, pulse 95, respirations 18, blood pressure 143/66, pulse ox 96% on 2 L. GENERAL APPEARANCE: Sitting up, more rested appearing. EYES: Pupils equal. Conjunctivae normal. NECK: JVD not raised. Mass not palpable. RESPIRATORY: Effort increased. LUNGS: Improved air entry. Crackles have gone. CARDIOVASCULAR: Heart sounds irregular. Minimal edema. ABDOMEN: Soft, nontender. Liver and spleen not palpable. ORAL CAVITY: ( ) white patches. PSYCHIATRY: Alert and oriented x3, improved anxiousness. INVESTIGATIONS: Potassium 4.6, BUN 92, creatinine 1.06. ASSESSMENT: 1. Acute on chronic congestive heart failure exacerbation from systolic dysfunction; ejection fraction 30% to 35% from underlying coronary artery disease, compensated. 2. Acute renal failure, prerenal from diuresis appears to be prerenal with much improvement. 3. Hyperkalemia in a setting of acute renal failure on MARIBEL inhibitor that was discontinued, improved. 4. Persistent atrial flutter fibrillation with rapid rate on presentation, now better controlled. 5. Acute severe chronic obstructive pulmonary disease exacerbation in an active smoker. Lung function around 30%, improved. 6. Restless leg syndrome. 7. Fibromyalgia. 8. Hyperlipidemia. 9. Essential hypertension. 10. Primary osteoarthritis multiple joints, bilateral. 11. Chronic hypoxic respiratory failure from underlying chronic COPD on 2 L oxygen at home. 12. Hypothyroidism. 13. Moderate secondary pulmonary hypertension secondary to chronic COPD. 14. Severe tricuspid regurgitation, nonrheumatic. 15. Oropharyngeal candidiasis, severe, responded well to Diflucan. PLAN: Patient continues to do much better. Steroids have been switched to p.o. Lasix switched over to p.o. Will check labs tomorrow. Overall doing much better.
[2016-12-21] MEDS: INSULIN LISPRO (humaLOG) 300 UNIT/3 ML VIAL SQ SCH ×2 (06:41→12:09)
[2016-12-21] MEDS: guaiFENesin-DM 100-10MG/5ML 10 ML CUP PO SCH ×2 (06:41→12:08)
[2016-12-21] MEDS: LEVOTHYROXINE 125 MCG TAB PO SCH (06:41)
[2016-12-21 07:41] LABS: Anion Gap 7 mmol/L; Blood Urea Nitrogen 74 mg/dL (7-17); Calcium 8.5 mg/dL (8.4-10.2); Carbon Dioxide 32 mmol/L (22-30); Chloride 95 mmol/L (98-107); Glucose 142 mg/dL (74-99); Non-African American GFR(MDRD) >60 (>60 ml/min/1.73 sqM); Potassium 4.7 mmol/L (3.5-5.1); Sodium 134 mmol/L (137-145)
[2016-12-21] MEDS: hydrALAZINE HCL 25 MG TAB PO SCH (08:57)
[2016-12-21] MEDS: CLOPIDOGREL 75 MG TAB PO SCH (08:57)
[2016-12-21] MEDS: FAMOTIDINE 20 MG TAB PO SCH (08:57)
[2016-12-21] MEDS: FLUCONAZOLE 100 MG TAB PO SCH (08:57)
[2016-12-21] MEDS: AMOXIC-POT CLAV 500-125 MG 1 EACH TAB PO SCH (08:57)
[2016-12-21] MEDS: DILTIAZEM ORAL 30 MG TAB PO SCH (08:57)
[2016-12-21] MEDS: APIXABAN 2.5 MG TABLET PO SCH (08:57)
[2016-12-21] MEDS: METOPROLOL TARTRATE 50 MG TAB PO SCH (08:58)
[2016-12-21] MEDS: predniSONE 10 MG TAB PO SCH (08:58)
[2016-12-21] MEDS ORDERED: FUROSEMIDE 40 MG TAB PO SCH (09:00)
[2016-12-21 09:04] VITALS: TEMP 96.4
[2016-12-21] MEDS: IPRATROPIUM-ALBUTEROL 3 ML NEB INHALATION SCH ×3 (09:09→17:05)
[2016-12-21] MEDS: BUDESONIDE 1 MG/2 ML NEBU INHALATION SCH (09:09)
[2016-12-21 10:59] VITALS: BMI 27.4
[2016-12-21 11:51] LABS: Glucose,Whole Blood 151 mg/dL (75-99)
[2016-12-21 14:32] VITALS: BP 126/74; PULSE 90
--- NOTE | 2016-12-21 15:03 | PN ---
Patient is seen for followup for acute kidney injury. She continues to complain of shortness of breath and there is consideration for possible bronchoscopy. Patient is being treated for COPD exacerbation. Her renal function has improved significantly with serum creatinine now at 0.75 mg/dL from 2.4 mg/dL on 12/20/2016. She was restarted on oral diuretics. Patient states her leg swelling has become worse and we can increase her diuretics as her renal function has improved. On examination, blood pressure is 126/74, heart rate 90 per minute. She is afebrile. Examination of the heart, S1 and S2. Examination of the lungs, bilateral breath sounds are heard. Abdomen is soft, obese. Examination of lower extremities shows edema 2+ bilaterally. 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 Labs show sodium 134, potassium 4.7. BUN 74, serum creatinine 0.75. ASSESSMENT: 1. Acute kidney injury, acute tubular necrosis, currently resolved. 2. Chronic obstructive pulmonary disease with exacerbation, maintained on steroids, antibiotics and breathing treatments/bronchodilators. 3. Volume overload. Patient is maintained on oral diuretics. I will give her a dose of IV Lasix today and maintain her on IV b.i.d. for now. 4. Oral thrush, maintained on Diflucan. PLAN: Increase diuretics and repeat labs in a.m.
--- NOTE | 2016-12-21 16:31 | P.PN ---
Subjective This is a very pleasant 61-year-old female patient who follows with Dr. Chika Lloyd as her primary care physician. She has a history of severe peripheral vascular disease with claudication status post PTBA, systolic congestive heart failure with an ejection fraction of 30-35%, coronary artery disease, gastroesophageal reflux disease, hyperlipidemia, hypertension, pulmonary hypertension, atrial fibrillation/flutter/atrial tachycardia with previous ablation hypothyroidism. She also follows with Dr. Guallpa in our office for severe oxygen dependent Gold stage IV chronic obstructive pulmonary disease. Her FEV1 value is 30% of predicted. She presented here on 12/14/2016 with complaints of increasing shortness of breath, cough and congestion. She had thick yellow sputum production. No chills or night sweats. He was fatigued and weak. So had noted a 5 pound weight gain. She is seen today 12/16 in consultation on the [facility]. She is awake and alert. She is dyspneic with minimal conversation a minimal activity. She has a loose nonproductive cough currently. She denies any chest pain palpitations lightheadedness or dizziness. Her chest x-ray revealed evidence of chronic obstructive pulmonary disease and cardiomegaly but no acute cardiopulmonary process. An echocardiogram revealed impaired left ventricular systolic function with estimated ejection fraction 35-40%. Right ventricle was severely enlarged. She also had a right ventricular systolic pressure of 46 mmHg. She' s been treated for both acute exacerbation of CHF along with COPD exacerbation. She is seen again today 12/19/2016 in follow-up on the [facility]. She has been slow to progress. The last 2 days she has been improving and the pulmonary standpoint. She is less short of breath today as compared to yesterday. Less coughing. Less wheezing and dyspnea on exertion. Her renal function is improving with a current creatinine of 1.70. An ultrasound of the kidneys did not reveal any evidence of mass or hydronephrosis. On 12/20/2016 the patient is being seen in follow-up. She is slightly improved however she started having congested cough and she will benefit from Mucinex. No chills. No fever. Oropharyngeal thrush has recovered. The renal function is also recovered. She is a bit weak and anxious. She is seen again today 12/21/2016 in follow-up on the [facility] care unit. She is breathing easier today as compared to yesterday. She does get quite dyspneic on minimal exertion. She denies any worsening shortness of breath. She is complaining of some nausea today. Objective - Vital Signs Vital signs: Vital Signs Temp 96.4 F L 12/21/16 08:00 Pulse 92 12/21/16 13:03 Resp 19 12/21/16 04:00 BP 126/74 12/21/16 12:00 Pulse Ox 93 L 12/21/16 12:48 Intake & Output 12/20/16 12/21/16 12/21/16 18:59 06:59 18:59 Intake Total 360 660 340 Output Total 0 0 Balance 360 660 340 Weight 72.8 kg 72.5 kg 72.5 kg Intake: Oral 360 660 340 Output: Urine 0 0 Other: Voiding Method Toilet Toilet # Voids 0 3 - Exam Obese, comfortable likely distress. The patient has cushingoid features related to chronic steroid use.Head exam was generally normal. There was no scleral icterus or corneal arcus. Mucous membranes were moist. Neck is supple and there is extensive oropharyngeal thrush and there is no goiter or neck mass that this point. Lung sounds are diminished and there is prolongation of expiratory phase of breathing and diffuse extremity wheezes throughout the lung reynolds bilaterally.Cardiac exam revealed the PMI to be normally situated and sized. The rhythm was regular and no extrasystoles were noted during several minutes of auscultation. The first and second heart sounds were normal and physiologic splitting of the second heart sound was noted. There were no murmurs , rubs, clicks, or gallops.Abdominal exam revealed normal bowel sounds. The abdomen was soft, non-tender, and without masses, organomegaly, or appreciable enlargement of the abdominal aorta.Examination of the extremities revealed easily palpable radial, femoral and pedal pulses. There was no cyanosis, clubbing or edema. - Labs CBC & Chem 7: 12/20/16 08:06 12/21/16 06:42 Labs: Abnormal Lab Results - Last 24 Hours (Table) 12/20/16 12/20/16 12/21/16 Range/Units 17:16 20:55 05:56 Sodium (137-145) mmol/L Chloride (98-107) mmol/L Carbon Dioxide (22-30) mmol/L BUN (7-17) mg/dL Glucose (74-99) mg/dL POC Glucose (mg/dL) 152 H 240 H 146 H (75-99) mg/dL 12/21/16 12/21/16 Range/Units 06:42 11:49 Sodium 134 L (137-145) mmol/L Chloride 95 L (98-107) mmol/L Carbon Dioxide 32 H (22-30) mmol/L BUN 74 H (7-17) mg/dL Glucose 142 H (74-99) mg/dL POC Glucose (mg/dL) 151 H (75-99) mg/dL Assessment and Plan Plan: Impression: #1 Acute exacerbation of chronic systolic congestive heart failure. Impaired left ventricular systolic function with estimated ejection fraction 35-40%. #2 Acute exacerbation of severe oxygen dependent chronic obstructive pulmonary disease, Gold stage IV FEV1 value 30% of predicted. #3 Acute on chronic hypoxic respiratory failure secondary to above. #4 Severe peripheral vascular disease with previous PTBA of the right superficial femoral artery, complicated by large anterior abdominal wall hematoma in September 2016. #5 Coronary artery disease with previous myocardial infarction. #6 History of atrial fibrillation/flutter/atrial tachycardia with previous cardiac ablation. #7 Moderate to severe pulmonary hypertension, RVSP 46 mmHg. #8 History of 40+ years 1 to 1-1/2 pack per day smoking however quit approximately August 2016. #9 Hypertension. #10 Hyperlipidemia. #11 Hypothyroidism. Plan: The patient was seen and evaluated by Dr. Guallpa. She is being treated for both COPD and CHF exacerbations. She has been slow to progress. She remains on bronchodilators 4 times a day and when necessary, Pulmicort, prednisone 30 mg daily. She is also on Lasix 40 mg twice a day. She is on empiric antibiotics in the form of Augmentin. She is anticoagulated with Eliquis. She is on Pepcid for GI prophylaxis. We will increase her activity as tolerated. She does have her oxygen and nebulizer at home. We will continue to follow make further recommendations based on her clinical status.
[2016-12-21] MEDS ORDERED: FUROSEMIDE 10 MG/ML 4 ML VIAL IV SCH (21:00)
--- NOTE | 2016-12-22 16:46 | DS ---
DATE OF ADMISSION: 12/14/2016 DATE OF DISCHARGE: 12/21/2016 FINAL DIAGNOSES: 1. Acute on chronic congestive heart failure exacerbation from systolic dysfunction; ejection fraction 30% to 35% from underlying coronary artery disease, compensated. 2. Acute renal failure, prerenal from diuresis. 3. Hyperkalemia in the setting of acute renal failure including from MARIBEL inhibitor. 4. Persistent atrial flutter fibrillation with rapid rate on presentation. 5. Acute severe chronic obstructive pulmonary disease exacerbation in an active smoker. Lung function around 30%. 6. Restless leg syndrome. 7. Fibromyalgia. 8. Hyperlipidemia. 9. Essential hypertension. 10. Primary osteoarthritis in multiple joints bilateral. 11. Chronic hypoxic respiratory failure from underlying chronic obstructive pulmonary disease on 2 liters oxygen at home. 12. Hypothyroidism. 13. Moderate secondary pulmonary hypertension secondary to chronic obstructive pulmonary disease. 14. Severe tricuspid regurgitation, nonrheumatic. 15. Oropharyngeal candidiasis, severe, responded well to Diflucan. CONSULTATION: 1. Dr. Yi from Nephrology. 2. Dr. Guallpa from Pulmonary. HOSPITAL COURSE: This patient admitted with severe COPD exacerbation and went into CHF exacerbation, and underwent acute renal failure. Creatinine jumped 2.4 and was down to 0.75 by the time of discharge. Patient also had severe oropharyngeal Candidiasis that responded well to Diflucan. Patient is doing much better by the time of discharge. Care was discussed with the patient. On exam, lungs decreased breath sounds. PSYCH: Alert and oriented x3. Discharge planning more than 35 minutes. DISCHARGE MEDICATIONS: 1. Synthroid 125 mcg a day. 2. Lopressor 50 mg p.o. t.i.d. 3. Xopenex HFA 2 puffs q.6 p.r.n. 4. Eliquis 5 mg p.o. b.i.d. 5. Hydralazine 25 mg p.o. t.i.d. 6. Lipitor ( ) q.h.s. 7. Dulera 200/5, 2 puffs b.i.d. 8. Lasix 40 mg b.i.d. 9. Plavix 75 mg daily. 10. Ativan 0.5 p.o. p.r.n. 11. Ambien 5 mg p.o. q.h.s. p.r.n. 12. Aspirin 81 mg p.o. q.h.s. 13. Pepcid 20 mg p.o. daily. 14. [place] 5, 1 tablet q.6 p.r.n. 15. DuoNeb q.i.d. 16. Melatonin 5 mg p.o. q.h.s. p.r.n. 17. Augmentin 500 mg 1 tablet daily, 6 tablets. 18. Cardizem 30 mg p.o. t.i.d. 19. Diflucan 100 mg p.o. daily, 7 tablets. 20. Prednisone taper. Follow up with the rn iv therapy in one week, follow with Dr. Payton on 12/25/16, follow up with Dr. Lloyd on 12/26/16. Discharge planning more than 35 minutes.
== END 2016-12-21 17:15 | disposition home health service (06) | DRG 291 ==
LOC: EC 14:15 → 6SEL 17:45
PROVIDERS: ADMIT Hospitalist; ATTEND Hospitalist
DX: I13.0 Hypertensive heart and chronic kidney disease with heart failure and stage 1 through stage 4 chronic kidney disease, or unspecified chronic kidney disease (principal); I50.23 Acute on chronic systolic (congestive) heart failure; J96.21 Acute and chronic respiratory failure with hypoxia; N17.0 Acute kidney failure with tubular necrosis; B37.0 Candidal stomatitis; I48.92 Unspecified atrial flutter; E11.22 Type 2 diabetes mellitus with diabetic chronic kidney disease; E11.51 Type 2 diabetes mellitus with diabetic peripheral angiopathy without gangrene; E87.1 Hypo-osmolality and hyponatremia; I42.9 Cardiomyopathy, unspecified; G25.81 Restless legs syndrome; I48.0 Paroxysmal atrial fibrillation; J44.1 Chronic obstructive pulmonary disease with (acute) exacerbation; N18.9 Chronic kidney disease, unspecified; E78.5 Hyperlipidemia, unspecified; E87.5 Hyperkalemia; E89.0 Postprocedural hypothyroidism; F10.20 Alcohol dependence, uncomplicated; F17.200 Nicotine dependence, unspecified, uncomplicated; F40.240 Claustrophobia; I36.1 Nonrheumatic tricuspid (valve) insufficiency; I25.10 Atherosclerotic heart disease of native coronary artery without angina pectoris; I25.2 Old myocardial infarction; I27.2 Other secondary pulmonary hypertension; I48.2 Chronic atrial fibrillation; K21.9 Gastro-esophageal reflux disease without esophagitis; M19.91 Primary osteoarthritis, unspecified site; M79.7 Fibromyalgia; T38.0X5A Adverse effect of glucocorticoids and synthetic analogues, initial encounter; Z79.02 Long term (current) use of antithrombotics/antiplatelets; Z79.4 Long term (current) use of insulin; Z82.49 Family history of ischemic heart disease and other diseases of the circulatory system; Z86.010 Personal history of colon polyps; Z88.1 Allergy status to other antibiotic agents; Z98.61 Coronary angioplasty status; Z99.81 Dependence on supplemental oxygen; Z79.899 Other long term (current) drug therapy
CPT/HCPCS: 36415; 71010; 71020; 76770; 80048; 80053; 82550; 82553; 83735; 83880; 83930; 84484; 85025; 85027; 85610; 85730; 87040; 93005; 93306; 94640; 94644; 94760; 99291

== ENCOUNTER 2016-12-23 00:11 | Inpatient (IN) | payer MEDICARE, OTHER ==
[2016-12-23] MEDS ORDERED: IPRATROPIUM-ALBUTEROL 3 ML NEB INHALATION STA (00:14)
[2016-12-23] MEDS ORDERED: FUROSEMIDE 10 MG/ML 4 ML VIAL IV STA (00:14)
--- NOTE | 2016-12-23 00:17 | ED ---
General Adult HPI - General Stated complaint: SOB Time Seen by Provider: 12/23/16 00:11 Source: RN notes reviewed - History of Present Illness Initial comments: This is a 61-year-old female who presents to the emergency department stating she was just discharged from the hospital. Patient states she was here for renal failure. Patient states she also has COPD and a history of CHF. Patient states she has never felt like she was breathing good but the breathing is gotten worse this evening she called EMS and was brought to the emergency department. Patient denies any fever chills or cough. Patient denies any chest pain or palpitations. Patient states she is on 2 L of oxygen normally. Patient denies abdominal pain patient denies nausea vomiting diarrhea. Patient denies headache patient denies numbness weakness. Patient denies any lightheadedness or dizziness. - Related Data Home Medications Medication Instructions Recorded Confirmed Levothyroxine Sodium [Synthroid] 125 mcg PO QAM 05/14/15 12/23/16 Metoprolol Tartrate [Lopressor] 50 mg PO TID 08/02/15 12/23/16 Levalbuterol Tartrate [Xopenex Hfa 2 puff INHALATION RT-Q6H PRN 01/21/16 Inhaler] hydrALAZINE HCL [Apresoline] 25 mg PO TID-W/MEALS 03/24/16 12/23/16 Mometasone/Formoterol [Dulera 200 2 puff INHALATION RT-BID 09/15/16 12/23/16 Mcg/5 Mcg Inhaler] Furosemide [Lasix] 40 mg PO BID 10/13/16 12/23/16 Aspirin EC [Ecotrin Low Dose] 81 mg PO HS 12/14/16 12/23/16 Famotidine [Pepcid] 20 mg PO DAILY 12/14/16 12/23/16 HYDROcodone/APAP 5-325MG [[place] 1 tab PO Q6HR PRN 12/14/16 12/23/16 5-325] Ipratropium-Albuterol Nebulize 3 ml INHALATION RT-QID 12/14/16 12/23/16 [Duoneb 0.5 mg-3 mg/3 ml Soln] Melatonin 5 mg PO HS PRN 12/14/16 12/23/16 Previous Rx's Medication Instructions Recorded Apixaban [Eliquis] 5 mg PO BID #60 tab 01/26/16 Atorvastatin [Lipitor] 80 mg PO HS #30 tab 03/28/16 Clopidogrel [Plavix] 75 mg PO DAILY tab 10/25/16 LORazepam [Ativan] 0.5 mg PO Q8H PRN #20 tab 10/25/16 Zolpidem [Ambien] 5 mg PO HS PRN #10 tab 10/25/16 Amoxic-Pot Clav 500-125 mg 1 each PO Q12HR #6 tab 12/21/16 [Augmentin 500-125 mg] Diltiazem Oral [Cardizem*] 30 mg PO TID #90 tab 12/21/16 Fluconazole [Diflucan] 100 mg PO DAILY #7 tab 12/21/16 predniSONE 30 mg PO DIRECTED #18 tab 12/21/16 Allergies Allergy/AdvReac Type Severity Reaction Status Date / Time ciprofloxacin HCl Allergy Severe Anaphylaxis Verified 12/14/16 16:16 [From Cipro] budesonide [From Symbicort] AdvReac Rapid Verified 12/14/16 16:16 Heart Rate formoterol fumarate AdvReac Rapid Verified 12/14/16 16:16 [From Symbicort] Heart Rate Review of Systems ROS Statement: Those systems with pertinent positive or pertinent negative responses have been documented in the HPI. ROS Other: All systems not noted in ROS Statement are negative. Past Medical History Past Medical History: Atrial Flutter, Coronary Artery Disease (CAD), Heart Failure, COPD, GERD/Reflux, Hyperlipidemia, Hypertension, Myocardial Infarction ([place]), Osteoarthritis (OA), Syncope, Thyroid Disorder Additional Past Medical History / Comment(s): COPD and the patient is on home O2 at 2 L/m nasal cannula and she has a baseline FEV1 of 30% of predicted and she is a nonsmoker, congestion heart failure with an ejection fraction of 30-35 % along with severe pulmonary hypertension and the right ventricle systolic pressure of 60, history of atrial fibrillation/flutter/atrial tachycardia with previous cardiac ablation, fibromyalgia, hyperlipidemia, hypertension, colonic polyps, previous coronary artery disease and reported history of myocardial infarction, hypothyroidism, degenerative arthritis, nonischemic cardio myopathy, and severe peripheral vascular disease. 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 Smoking Status: Former smoker Past Alcohol Use History: Rare Additional Past Alcohol Use History / Comment(s): SMOKED 40 YEARS, 1 1/2-2 PPD, quit in August Past Drug Use History: None Reported - Past Family History Mother Family Medical History: Cancer Father Family Medical History: Coronary Artery Disease (CAD) General Exam - General Exam Comments Initial Comments: GENERAL: Patient is well-developed and well-nourished. Patient is nontoxic and well- hydrated and is in moderate distress. ENT: Neck is soft and supple. No significant lymphadenopathy is noted. Oropharynx is clear. Moist mucous membranes. Neck has full range of motion without eliciting any pain. EYES: The sclera were anicteric and conjunctiva were pink and moist. Extraocular movements were intact and pupils were equal round and reactive to light. Eyelids were unremarkable. PULMONARY: Patient is wheezing diffusely CARDIOVASCULAR: There is a regular rate and rhythm without any murmurs gallops or rubs. ABDOMEN: Soft and nontender with normal bowel sounds. No palpable organomegaly was noted. There is no palpable pulsatile mass. SKIN: Skin is clear with no lesions or rashes and otherwise unremarkable. NEUROLOGIC: Patient is alert and oriented x3. Cranial nerves II through XII are grossly intact. Motor and sensory are also intact. Normal speech, volume and content. Symmetrical smile. MUSCULOSKELETAL: Normal extremities with adequate strength and full range of motion. Patient has 2+ edema LYMPHATICS: No significant lymphadenopathy is noted PSYCHIATRIC: Normal psychiatric evaluation. Course Vital Signs 12/23/16 12/23/16 12/23/16 00:16 00:55 01:00 Pulse Rate 134 H 126 H 140 H Respiratory Rate Blood Pressure 205/104 O2 Sat by Pulse 100 Oximetry 12/23/16 01:54 Pulse Rate 122 H Respiratory 20 Rate Blood Pressure 199/82 O2 Sat by Pulse 98 Oximetry Medical Decision Making - Medical Decision Making EKG shows atrial fibrillation at 154 bpm MO interval is 152 QRSs 80 QT interval is 240 QTc is 384. Patient's EKG shows no ST segment elevation or depression or T-wave abdomen is noted Chest x-ray shows no acute abnormality. I started the patient on I gave the patient albuterol treatment to the emergency department it did not seem to improve her very much patient also received one in route and steroids in route. I'm going to admit the patient for COPD. I spoke with Dr. Ramos admitted the patient I wrote admitting orders - Lab Data Result diagrams: 12/23/16 00:33 12/23/16 00:33 Lab Results 12/23/16 12/23/16 12/23/16 Range/Units 00:33 00:33 00:33 WBC 14.4 H (3.8-10.6) k/uL RBC 3.85 (3.80-5.40) m/uL Hgb 12.2 (11.4-16.0) gm/dL Hct 38.2 (34.0-46.0) % MCV 99.4 (80.0-100.0) fL MCH 31.7 (25.0-35.0) pg MCHC 31.8 (31.0-37.0) g/dL RDW 16.1 H (11.5-15.5) % Plt Count 214 (150-450) k/uL Neutrophils % 86 % Lymphocytes % 3 % Monocytes % 8 % Eosinophils % 0 % Basophils % 1 % Neutrophils # 12.4 H (1.3-7.7) k/uL Lymphocytes # 0.4 L (1.0-4.8) k/uL Monocytes # 1.1 H (0-1.0) k/uL Eosinophils # 0.0 (0-0.7) k/uL Basophils # 0.2 (0-0.2) k/uL Anisocytosis Slight Macrocytosis Slight PT (9.0-12.0) sec INR (<1.1) APTT (22.0-30.0) sec Sodium 136 L (137-145) mmol/L Potassium 4.8 (3.5-5.1) mmol/L Chloride 89 L (98-107) mmol/L Carbon Dioxide 38 H (22-30) mmol/L Anion Gap 9 mmol/L BUN 38 H (7-17) mg/dL Creatinine 0.60 (0.52-1.04) mg/dL Est GFR (MDRD) Af Amer >60 (>60 ml/min/1.73 sqM) Est GFR (MDRD) Non-Af >60 (>60 ml/min/1.73 sqM) Glucose 171 H (74-99) mg/dL Calcium 9.2 (8.4-10.2) mg/dL Total Bilirubin 1.5 H (0.2-1.3) mg/dL AST 53 H (14-36) U/L ALT 57 H (9-52) U/L Alkaline Phosphatase 60 (38-126) U/L Total Creatine Kinase 55 (30-135) U/L CK-MB (CK-2) 4.3 H* (0.0-2.4) ng/mL CK-MB (CK-2) Rel Index 7.8 Troponin I 0.048 H* (0.000-0.034) ng/mL NT-Pro-B Natriuret Pep pg/mL Total Protein 6.5 (6.3-8.2) g/dL Albumin 3.9 (3.5-5.0) g/dL 12/23/16 12/23/16 Range/Units 00:33 00:33 WBC (3.8-10.6) k/uL RBC (3.80-5.40) m/uL Hgb (11.4-16.0) gm/dL Hct (34.0-46.0) % MCV (80.0-100.0) fL MCH (25.0-35.0) pg MCHC (31.0-37.0) g/dL RDW (11.5-15.5) % Plt Count (150-450) k/uL Neutrophils % % Lymphocytes % % Monocytes % % Eosinophils % % Basophils % % Neutrophils # (1.3-7.7) k/uL Lymphocytes # (1.0-4.8) k/uL Monocytes # (0-1.0) k/uL Eosinophils # (0-0.7) k/uL Basophils # (0-0.2) k/uL Anisocytosis Macrocytosis PT 11.9 (9.0-12.0) sec INR 1.2 (<1.1) APTT 24.4 (22.0-30.0) sec Sodium (137-145) mmol/L Potassium (3.5-5.1) mmol/L Chloride (98-107) mmol/L Carbon Dioxide (22-30) mmol/L Anion Gap mmol/L BUN (7-17) mg/dL Creatinine (0.52-1.04) mg/dL Est GFR (MDRD) Af Amer (>60 ml/min/1.73 sqM) Est GFR (MDRD) Non-Af (>60 ml/min/1.73 sqM) Glucose (74-99) mg/dL Calcium (8.4-10.2) mg/dL Total Bilirubin (0.2-1.3) mg/dL AST (14-36) U/L ALT (9-52) U/L Alkaline Phosphatase (38-126) U/L Total Creatine Kinase (30-135) U/L CK-MB (CK-2) (0.0-2.4) ng/mL CK-MB (CK-2) Rel Index Troponin I (0.000-0.034) ng/mL NT-Pro-B Natriuret Pep 59914 pg/mL Total Protein (6.3-8.2) g/dL Albumin (3.5-5.0) g/dL Disposition Clinical Impression: Acute exacerbation of chronic obstructive airways disease Narrative: I'm unable to document in the computer the clinical diagnosis therefore I will dictate. Clinical diagnosis pedal edema as well as an exacerbation of COPD Disposition: ADMITTED IP TO THIS [facility] Time of Disposition: 02:48
[2016-12-23] MEDS: DILTIAZEM 125 MG in SODIUM CHLORIDE 0.9% 100 ML IV ONE ×2 (00:47→11:27)
[2016-12-23 00:51] LABS: Anisocytosis Slight; Basophils # (A) 0.2 k/uL (0-0.2); Basophils % (A) 1 %; CH 31.8; CHCM 32.2; Eosinophils % (A) 0 %; HCT 38.2 % (34.0-46.0); HDW 2.98; HGB 12.2 gm/dL (11.4-16.0); Luc # (Auto) 0.25; Luc % (Auto) 2; Lymphocytes # (A) 0.4 k/uL (1.0-4.8); Lymphocytes % (A) 3 %; MCH 31.7 pg (25.0-35.0); MCHC 31.8 g/dL (31.0-37.0); MCV 99.4 fL (80.0-100.0); Macrocytosis Slight; Monocytes # (A) 1.1 k/uL (0-1.0); Monocytes % (A) 8 %; Neutrophils # (A) 12.4 k/uL (1.3-7.7); Neutrophils % (A) 86 %; RBC 3.85 m/uL (3.80-5.40); RDW 16.1 % (11.5-15.5); WBC 14.4 k/uL (3.8-10.6); WBC (Perox) 14.19
[2016-12-23 00:59] LABS: INR 1.2 (<1.1); Partial Thromboplastin Time 24.4 sec (22.0-30.0); Prothrombin Time 11.9 sec (9.0-12.0)
[2016-12-23 01:10] LABS: ALT 57 U/L (9-52); AST 53 U/L (14-36); Alkaline Phosphatase 60 U/L (38-126); Anion Gap 9 mmol/L; Blood Urea Nitrogen 38 mg/dL (7-17); Calcium 9.2 mg/dL (8.4-10.2); Carbon Dioxide 38 mmol/L (22-30); Chloride 89 mmol/L (98-107); Glucose 171 mg/dL (74-99); Non-African American GFR(MDRD) >60 (>60 ml/min/1.73 sqM); Potassium 4.8 mmol/L (3.5-5.1); Sodium 136 mmol/L (137-145); Total Bilirubin 1.5 mg/dL (0.2-1.3); Total Protein 6.5 g/dL (6.3-8.2)
--- NOTE | 2016-12-23 01:30 | XR ---
EXAM: XR Chest, 2 Views. CLINICAL HISTORY: Reason: difficulty breathing TECHNIQUE: Frontal and lateral views of the chest. COMPARISON: 12/14/16 exam. FINDINGS: Lungs: The lungs appear stable without new focal infiltrate. Pleural spaces: No pleural effusion or pneumothorax has developed. Heart: Stable cardiomegaly. Mediastinum: Diffuse atherosclerotic calcification including of the aorta and bilateral subclavian and axillary arteries again present. Bones: Unremarkable. No acute fracture. IMPRESSION: No new acute findings.
[2016-12-23 01:50] LABS: Creatine Kinase MB 4.3 ng/mL (0.0-2.4); Troponin I 0.048 ng/mL (0.000-0.034)
[2016-12-23] MEDS: IPRATROPIUM-ALBUTEROL 3 ML NEB INHALATION PRN ×5 (03:43→19:33)
[2016-12-23] MEDS ORDERED: ZOLPIDEM 5 MG TAB PO PRN (06:48)
[2016-12-23] MEDS ORDERED: LORazepam 0.5 MG TAB PO PRN (06:48)
[2016-12-23] MEDS ORDERED: ALBUTEROL NEBULIZED 2.5 MG/3 ML INHALATION PRN (06:48)
[2016-12-23] MEDS ORDERED: HYDROcodone/APAP 5-325MG 1 EACH TAB PO PRN (06:48)
[2016-12-23] MEDS: INSULIN LISPRO (humaLOG) 300 UNIT/3 ML VIAL SQ SCH ×4 (06:59→21:04)
[2016-12-23] MEDS: methylPREDNISolone SOD SUCCI 125 MG/2 ML VIAL IV SCH ×4 (06:59→23:53)
[2016-12-23] MEDS ORDERED: SYMBICORT 160-4.5 MCG INHALER INHALATION SCH (08:00)
[2016-12-23] MEDS ORDERED: FUROSEMIDE 40 MG TAB PO SCH (09:00)
[2016-12-23] MEDS: CLOPIDOGREL 75 MG TAB PO SCH (09:38)
[2016-12-23] MEDS: METOPROLOL TARTRATE 50 MG TAB PO SCH ×3 (09:38→20:20)
[2016-12-23] MEDS: APIXABAN 5 MG TAB PO SCH ×2 (09:38→20:18)
[2016-12-23] MEDS: FAMOTIDINE 20 MG TAB PO SCH (09:38)
[2016-12-23] MEDS: LEVOTHYROXINE 125 MCG TAB PO SCH (09:38)
[2016-12-23] MEDS: hydrALAZINE HCL 25 MG TAB PO SCH ×3 (09:38→17:50)
[2016-12-23] MEDS: AMOXIC-POT CLAV 500-125 MG 1 EACH TAB PO SCH ×2 (09:39→20:19)
[2016-12-23] MEDS: FLUCONAZOLE 100 MG TAB PO SCH (09:39)
--- NOTE | 2016-12-23 09:58 | P.PN ---
Progress Note - Text This is an addendum to the dictated cardiology consultation. The patient was just discharged from the hospital. She has a known history of severe chronic obstructive lung disease, chronic atrial fibrillation, PAD and moderate cardiomyopathy who returns was progressive dyspnea, wheezing and fatigue. Her last admission she had exacerbation of COPD with some element of congestive heart failure. On presentation this time she is in atrial fibrillation with a rapid ventricle response. She has bilateral peripheral edema that she noted at home. She denied any chest discomfort, dizziness or palpitations. Her lung examination shows severe diffuse wheezing, irregularly irregular heart rate with 1-2+ bilateral edema. Her presentation is consistent with exacerbation of COPD and element of worsening congestive heart failure with systolic dysfunction most likely initiated by the worsening lung status. Her rapid ventricle response is related to her respiratory status. From the cardiac standpoint we will give her intravenous diuretics, follow her renal function, continue IV Cardizem for 24 hours. She will be seen by the pulmonary service. Depending on her progress further recommendations will be made. Thank you for this consult we will follow with you.
--- NOTE | 2016-12-23 10:03 | P.CRDCN ---
History of Present Illness Consult date: 12/23/16 Reason for Consult (text): Afib w/RVR Chief complaint: severe shortness of breath History of present illness: This is a pleasant 61-year-old female patient who follows with Dr. Payton in the office. She has a known history of severe COPD on home O2, systolic congestive heart failure, atrial fibrillation anticoagulated on Eliquis, PAD status post stent, prior [place], GERD, hypertension, and recent hospitalization with acute renal failure. She was discharged on December 21. Since then, the patient has been feeling more and more short of breath and she called EMS. Chest x-ray showed no new acute findings. EKG showed atrial fibrillation with rapid ventricular response. She is on cardizen gtt at 10mg/hr. Laboratory values showed a BUN 38, creatinine 0.60, BNP 17,400, and troponin 0.048. On examination, patient is sitting up at the side of the bed visibly short of breath. She continues to complain of extreme shortness of breath especially when laying flat back in bed. She denies complaints of dizziness, lightheadedness, palpitations or chest discomfort. She complains of the severe swelling in her lower extremities. Past Medical History Past Medical History: Atrial Flutter, Coronary Artery Disease (CAD), Heart Failure, COPD, GERD/Reflux, Hyperlipidemia, Hypertension, Myocardial Infarction ([place]), Osteoarthritis (OA), Syncope, Thyroid Disorder Additional Past Medical History / Comment(s): COPD and the patient is on home O2 at 2 L/m nasal cannula and she has a baseline FEV1 of 30% of predicted and she is a nonsmoker, congestion heart failure with an ejection fraction of 30-35 % along with severe pulmonary hypertension and the right ventricle systolic pressure of 60, history of atrial fibrillation/flutter/atrial tachycardia with previous cardiac ablation, fibromyalgia, hyperlipidemia, hypertension, colonic polyps, previous coronary artery disease and reported history of myocardial infarction, hypothyroidism, degenerative arthritis, nonischemic cardio myopathy, and severe peripheral vascular disease. 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 Smoking Status: Former smoker Past Alcohol Use History: Rare Additional Past Alcohol Use History / Comment(s): SMOKED 40 YEARS, 1 1/2-2 PPD, quit in August Past Drug Use History: None Reported - Past Family History Mother Family Medical History: Cancer Father Family Medical History: Coronary Artery Disease (CAD) Medications and Allergies Home Medications Medication Instructions Recorded Confirmed Type Levothyroxine Sodium [Synthroid] 125 mcg PO QAM 05/14/15 12/23/16 History Metoprolol Tartrate [Lopressor] 50 mg PO TID 08/02/15 12/23/16 History Levalbuterol Tartrate [Xopenex Hfa 2 puff INHALATION RT-Q6H PRN 01/21/16 History Inhaler] hydrALAZINE HCL [Apresoline] 25 mg PO TID-W/MEALS 03/24/16 12/23/16 History Mometasone/Formoterol [Dulera 200 2 puff INHALATION RT-BID 09/15/16 12/23/16 History Mcg/5 Mcg Inhaler] Furosemide [Lasix] 40 mg PO BID 10/13/16 12/23/16 History Aspirin EC [Ecotrin Low Dose] 81 mg PO HS 12/14/16 12/23/16 History Famotidine [Pepcid] 20 mg PO DAILY 12/14/16 12/23/16 History HYDROcodone/APAP 5-325MG [[place] 1 tab PO Q6HR PRN 12/14/16 12/23/16 History 5-325] Ipratropium-Albuterol Nebulize 3 ml INHALATION RT-QID 12/14/16 12/23/16 History [Duoneb 0.5 mg-3 mg/3 ml Soln] Melatonin 5 mg PO HS PRN 12/14/16 12/23/16 History Allergies Allergy/AdvReac Type Severity Reaction Status Date / Time ciprofloxacin HCl Allergy Severe Anaphylaxis Verified 12/14/16 16:16 [From Cipro] budesonide [From Symbicort] AdvReac Rapid Verified 12/14/16 16:16 Heart Rate formoterol fumarate AdvReac Rapid Verified 12/14/16 16:16 [From Symbicort] Heart Rate Physical Exam Vitals: Vital Signs Temp Pulse Pulse Resp BP Pulse Ox 12/23/16 09:29 116 H 12/23/16 07:08 113 H 160/103 12/23/16 04:00 124 H 24 12/23/16 03:56 111 H 12/23/16 03:43 129 H 98 12/23/16 03:07 97 F L 124 H 24 178/84 97 Intake and Output 12/22/16 12/23/16 12/23/16 22:59 06:59 14:59 Intake Total 30 95 Output Total 600 250 Balance -570 -155 Intake: Intake, IV Titration 30 Amount Diltiazem 125 mg In 30 Sodium Chloride 0.9% 100 ml @ 5 MG/HR 5 mls/hr IV .Q24H ONE Rx#:[id number] Oral 95 Output: Urine 600 250 Other: # Voids 1 Weight 69.1 kg PHYSICAL EXAMINATION: HEENT: Head is atraumatic, normocephalic. Pupils equal, round. Neck is supple. There is no elevated jugular venous pressure. HEART EXAMINATION: Heart sounds irregular irregular, S1 and S2 normal. No murmur or gallop heard. CHEST EXAMINATION: Lungs reveals severely diminished air entry bilaterally with faint wheezing throughout, faint crackles to bilateral bases. No chest wall tenderness is noted on palpation or with deep breathing. ABDOMEN: Soft, nontender. Bowel sounds are heard. No organomegaly noted. EXTREMITIES: 1+ peripheral pulses with evidence of 2+ peripheral edema and no calf tenderness noted. NEUROLOGIC patient is awake, alert and oriented x3. . Results 12/23/16 00:33 12/23/16 00:33 Current Medications Generic Name Dose Route Start Last Admin Trade Name Freq PRN Reason Stop Dose Admin Acetaminophen/Hydrocodone Bitart 1 each 12/23/16 06:48 [place] 5-325 PO Q6HR PRN Pain Albuterol Sulfate 2.5 mg 12/23/16 06:48 Ventolin Nebulized INHALATION RT-Q6H PRN Shortness Of Breath Albuterol/Ipratropium 3 ml 12/23/16 02:49 12/23/16 09:29 Duoneb 0.5 Mg-3 Mg/3 Ml Soln INHALATION 3 ml RT-Q4H PRN Administration Shortness Of Breath Or Wheezing Amoxicillin/Clavulanate Potassium 1 each 12/23/16 09:00 12/23/16 09:39 Augmentin 500-125 Mg PO 1 each Q12HR YOSELIN Administration Apixaban 5 mg 12/23/16 09:00 12/23/16 09:38 Eliquis PO 5 mg BID YOSELIN Administration Aspirin 81 mg 12/23/16 21:00 Aspirin PO HS YOSELIN Atorvastatin Calcium 80 mg 12/23/16 21:00 Lipitor PO HS YOSELIN Budesonide/Formoterol Fumarate 2 puff 12/23/16 08:00 12/23/16 09:29 Symbicort 160-4.5 Mcg Inhaler INHALATION 2 puff RT-BID YOSELIN Administration Clopidogrel Bisulfate 75 mg 12/23/16 09:00 12/23/16 09:38 Plavix PO 75 mg DAILY YOSELIN Administration Famotidine 20 mg 12/23/16 09:00 12/23/16 09:38 Pepcid PO 20 mg DAILY YOSELIN Administration Fluconazole 100 mg 12/23/16 09:00 12/23/16 09:39 Diflucan PO 100 mg DAILY YOSELIN Administration Furosemide 40 mg 12/23/16 09:45 Lasix IV Q12HR YOSELIN Hydralazine HCl 25 mg 12/23/16 07:30 12/23/16 09:38 Apresoline PO 25 mg TID-W/MEALS YOSELIN Administration Diltiazem HCl 125 mg/ Sodium 125 mls @ 5 mls/hr 12/23/16 00:24 12/23/16 00:47 Chloride IV 12/24/16 00:23 5 mg/hr .Q24H ONE 5 mls/hr 5 MG/HR Administration Insulin Human Lispro 0 unit 12/23/16 07:30 12/23/16 06:59 Humalog SQ 3 unit ACHS YOSELIN Administration Protocol Levothyroxine Sodium 125 mcg 12/23/16 07:00 12/23/16 09:38 Synthroid PO 125 mcg DAILY@0630 YOSELIN Administration Lorazepam 0.5 mg 12/23/16 06:48 Ativan PO Q8H PRN Anxiety Melatonin 5 mg 12/23/16 06:48 Melatonin PO HS PRN Insomnia Methylprednisolone Sodium Succinate 60 mg 12/23/16 06:00 12/23/16 06:59 Solu-Medrol IV 60 mg Q6HR YOSELIN Administration Metoprolol Tartrate 50 mg 12/23/16 09:00 12/23/16 09:38 Lopressor PO 50 mg TID YOSELIN Administration Zolpidem Tartrate 5 mg 12/23/16 06:48 Ambien PO HS PRN Insomnia Intake and Output 12/22/16 12/23/16 12/23/16 22:59 06:59 14:59 Intake Total 30 95 Output Total 600 250 Balance -570 -155 Intake: Intake, IV Titration 30 Amount Diltiazem 125 mg In 30 Sodium Chloride 0.9% 100 ml @ 5 MG/HR 5 mls/hr IV .Q24H ONE Rx#:[id number] Oral 95 Output: Urine 600 250 Other: # Voids 1 Weight 69.1 kg EKG Interpretations (text) Atrial fibrillation with rapid ventricular response Assessment and Plan Plan: Assessment and plan #1 severe COPD #2 chronic atrial fibrillation with rapid ventricular response, on eliquis #3 congestive heart failure, systolic #4 hypertension #5 PAD, s/p stent At this time will add Lasix 40 mg IV push every 12 hours. Continue IV Cardizem. Follow renal function and electrolytes. Further recommendations to follow. MEDIA CENTER ASSISTANT note has been reviewed, I agree with a documented findings and plan of care. Patient was seen and examined.
[2016-12-23] MEDS: FUROSEMIDE 10 MG/ML 4 ML VIAL IV SCH ×2 (11:26→20:20)
[2016-12-23 11:52] LABS: Glucose,Whole Blood 174 mg/dL (75-99)
[2016-12-23] MEDS: guaiFENesin 600 MG TABLET.ER PO SCH ×2 (16:06→20:20)
--- NOTE | 2016-12-23 16:47 | HP ---
DATE OF ADMISSION: 12/23/2016 PRESENTING COMPLAINT: Short of breath, heart racing. HISTORY OF PRESENTING COMPLAINT: This is patient who was just discharged from the hospital on 12/21/2016 with a diagnosis of CHF exacerbation and also had chronic obstructive pulmonary disease exacerbation. Patient's last admission had atrial flutter fibrillation with rapid ventricular rate, was controlled when she was discharged. The patient is doing well. Patient presented yesterday with heart racing, short of breath, found to be in A. fib with rapid ventricular rate, put back on IV Cardizem, feeling tired, admitted to the hospital for the same. REVIEW OF SYSTEMS: CONSTITUTIONAL: Tired. HEENT: None. RESPIRATORY: As above. CARDIOVASCULAR: Heart racing. GASTROINTESTINAL: None. GENITOURINARY: None. MUSCULOSKELETAL: Pain in the joints. Dermatological: Dry skin bruising. HEMATOLOGICAL: None. LYMPHATICS: None. PSYCHIATRY: Anxiety. HEMATOLOGICAL: None. NEUROLOGICAL: Restless leg syndrome. PAST MEDICAL HISTORY: History of atrial tachycardia with failed ablation in the past. Atrial flutter fibrillation, coronary artery disease, COPD, fibromyalgia, hyperlipidemia, hypertension, DJD , on home oxygen hypothyroidism, congestive heart failure; ejection fraction 30% to 35%. PAST SURGICAL HISTORY: Bowel resection, , cardiac catheterization, EP study with ablation. SOCIAL HISTORY: The patient smoked for many years; stopped about 3 months ago, lives by herself. ALLERGIES TO CIPROFLOXACIN. FAMILY HISTORY: Reviewed; noncontributory to presentation. ALLERGIES: CIPRO AND BUDESONIDE, SYMBICORT. Home medications as per my discharge summary: 1. Synthroid 125 mcg a day. 2. Lopressor 50 mg p.o. t.i.d. 3. Xopenex HFA 2 puffs q.6 p.r.n. 4. Eliquis 5 mg p.o. b.i.d. 5. Hydralazine 25 mg p.o. t.i.d. 6. Lipitor ( ), 2 puffs b.i.d. 7. Lasix 40 mg b.i.d. 8. Plavix 75 mg a day. 9. Ativan 0.5 mg p.o. p.r.n. 10. Ambien 5 mg p.o. q.h.s. p.r.n. 11. Aspirin 81 mg q.h.s. 12. Pepcid 20 mg p.o. daily. 13. [place] 5 1 tablets q.6 p.r.n. 14. DuoNeb q.i.d. 15. Melatonin 5 mg p.o. q.h.s. 16. Augmentin 500 mg p.o. twice a day 6 tablets. 17. Cardizem 30 mg t.i.d. 18. Diflucan 100 mg p.o. daily for 7 days. 19. Prednisone taper. On examination, vital signs on presentation: Pulse 134, blood pressure 204/104, pulse ox 100% on 3 liters, temperature 97. GENERAL APPEARANCE: Sitting up in a chair, tired -appearing. EYES: Pupils equal. Conjunctivae normal. HEENT: External appearance of nose and ears normal. Oral cavity normal. NECK: JVD not raised. Mass not palpable. RESPIRATORY: Effort increased. LUNGS: Diminished breath sounds, prolonged expiration. CARDIOVASCULAR: Heart sounds irregular. Minimal edema. ABDOMEN: Soft, nontender. Liver and spleen not palpable. LYMPHATIC: No lymph node palpable in benign neck or axillae. PSYCHIATRY: Alert and oriented x3. Mood and affect anxious appearing. INVESTIGATIONS: White count 14.1, hemoglobin 12.2. Potassium 3.8. BUN 38, creatinine 0.60. Troponin 0.048, proBNP is 17,400, EKG atrial fibrillation flutter. ASSESSMENT: 1. Atrial flutter fibrillation with a rapid ventricular rate. The patient had previous EP studies and ablation in the past. The patient may probably need electrophysiology intervention in addition to cardiology opinion. 2. Chronic congestive heart failure from systolic dysfunction, ejection fraction 30% to 35%, underlying coronary artery disease. 3. Acute chronic obstructive pulmonary disease exacerbation. 4. Restless leg syndrome. 5. Fibromyalgia. Hyperlipidemia. 6. Essential hypertension. 7. Primary osteoarthritis of multiple joints, bilateral. 8. Chronic hypoxic respiratory failure from underlying chronic obstructive pulmonary disease on 2 liters oxygen at home. 9. Hypothyroidism. 10. Moderate secondary pulmonary hypertension secondary to chronic obstructive pulmonary disease. 11. Severe tricuspid regurgitation, nonrheumatic. 12. Recently completed a course of Diflucan for oral candidiasis. PLAN: Home medications are resumed, put on nebulized bronchodilators, IV steroids. Cardizem drip. Cardiology and pulmonary consulted. After the weekend, if the patient's heart rate is still an issue, we will consult electrophysiology. Care was discussed with the patient.
[2016-12-23 17:15] LABS: Glucose,Whole Blood 141 mg/dL (75-99)
--- NOTE | 2016-12-23 18:18 | P.CNPUL ---
History of Present Illness Consult date: 12/23/16 Reason for consult: COPD History of present illness: 61-year-old female patient with advanced oxygen-dependent COPD, congestion heart failure with ejection fraction of 30-35% and chronic atrial fibrillation who was readmitted to the hospital following 24 hours of being discharged. Noted the patient was in the hospital between 12/14/2016 and 12/21/2016 and during the earlier hospitalization the patient was treated for an acute COPD exacerbation and CHF. She also developed extensive oropharyngeal thrush for which she was placed on Diflucan. Note that the patient's recovery was slow during her earlier hospitalization. During this catheterization the patient developed an acute kidney injury from aggressive diuresis and prerenal effect of diuretics. The patient was given IV fluids and her renal function stabilized and normalized. She had cushingoid features related to chronic and recurrent steroid use. She has multiple other comorbidities as will be discussed earlier. Following her discharge from the hospital, the patient continued to be doing poorly. She was unable to move around or perform activities of daily life. She continued to have increased cough and chest congestion and she is unable to bring up any sputum. No fever or chills. No chest pain. She has developed increased swelling in the lower extremities. She came into the emergency department and yet again she was found to be in atrial fibrillation with rapid ventricular response. She was placed on a Cardizem drip for rate control. She has been on long-term anticoagulation with Eliquis and she had been completing a course of Augmentin and Diflucan and a prednisone burst taper. Her maintenance stop the medication including combination of Dulera and Spiriva. She has been doing poorly and she has been unable to perform activities of day to day life. Her baseline FEV1 of 30% Review of Systems Full ROS was done and all of the positive findings were mentioned above in the HPI Past Medical History Past Medical History: Atrial Flutter, Coronary Artery Disease (CAD), Heart Failure, COPD, GERD/Reflux, Hyperlipidemia, Hypertension, Myocardial Infarction ([place]), Osteoarthritis (OA), Syncope, Thyroid Disorder Additional Past Medical History / Comment(s): COPD and the patient is on home O2 at 2 L/m nasal cannula and she has a baseline FEV1 of 30% of predicted and she is a nonsmoker, congestion heart failure with an ejection fraction of 30-35 % along with severe pulmonary hypertension and the right ventricle systolic pressure of 60, history of atrial fibrillation/flutter/atrial tachycardia with previous cardiac ablation, fibromyalgia, hyperlipidemia, hypertension, colonic polyps, previous coronary artery disease and reported history of myocardial infarction, hypothyroidism, degenerative arthritis, nonischemiccardio myopathy , and severe peripheral vascular disease. 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 Smoking Status: Former smoker Past Alcohol Use History: Rare Additional Past Alcohol Use History / Comment(s): SMOKED 40 YEARS, 1 1/2-2 PPD, quit in August Past Drug Use History: None Reported - Past Family History Mother Family Medical History: Cancer Father Family Medical History: Coronary Artery Disease (CAD) Medications and Allergies Home Medications Medication Instructions Recorded Confirmed Type Levothyroxine Sodium [Synthroid] 125 mcg PO QAM 05/14/15 12/23/16 History Metoprolol Tartrate [Lopressor] 50 mg PO TID 08/02/15 12/23/16 History Levalbuterol Tartrate [Xopenex Hfa 2 puff INHALATION RT-Q6H PRN 01/21/16 History Inhaler] hydrALAZINE HCL [Apresoline] 25 mg PO TID-W/MEALS 03/24/16 12/23/16 History Mometasone/Formoterol [Dulera 200 2 puff INHALATION RT-BID 09/15/16 12/23/16 History Mcg/5 Mcg Inhaler] Furosemide [Lasix] 40 mg PO BID 10/13/16 12/23/16 History Aspirin EC [Ecotrin Low Dose] 81 mg PO HS 12/14/16 12/23/16 History Famotidine [Pepcid] 20 mg PO DAILY 12/14/16 12/23/16 History HYDROcodone/APAP 5-325MG [[place] 1 tab PO Q6HR PRN 12/14/16 12/23/16 History 5-325] Ipratropium-Albuterol Nebulize 3 ml INHALATION RT-QID 12/14/16 12/23/16 History [Duoneb 0.5 mg-3 mg/3 ml Soln] Melatonin 5 mg PO HS PRN 12/14/16 12/23/16 History predniSONE See Taper PO DAILY 12/23/16 12/23/16 History Allergies Allergy/AdvReac Type Severity Reaction Status Date / Time ciprofloxacin HCl Allergy Severe Anaphylaxis Verified 12/23/16 11:02 [From Cipro] budesonide [From Symbicort] AdvReac Rapid Verified 12/23/16 11:02 Heart Rate formoterol fumarate AdvReac Rapid Verified 12/23/16 11:02 [From Symbicort] Heart Rate Physical Exam Vitals: Vital Signs Temp Pulse Pulse Resp BP Pulse Ox 12/23/16 16:01 100 12/23/16 16:00 96.5 F L 86 20 175/92 97 12/23/16 12:52 104 H 12/23/16 12:40 92 12/23/16 12:00 96.1 F L 102 H 20 111/73 96 12/23/16 09:45 116 H 12/23/16 09:29 116 H 12/23/16 08:00 97.3 F L 112 H 22 164/84 90 L 12/23/16 07:08 113 H 160/103 12/23/16 04:00 124 H 24 12/23/16 03:56 111 H 12/23/16 03:43 129 H 98 12/23/16 03:07 97 F L 124 H 24 178/84 97 Intake and Output 12/23/16 12/23/16 12/23/16 06:59 14:59 22:59 Intake Total 30 172.333 Output Total 600 1550 Balance -570 -1377.667 Intake: Intake, IV Titration 30 77.333 Amount Diltiazem 125 mg In 30 77.333 Sodium Chloride 0.9% 100 ml @ 5 MG/HR 5 mls/hr IV .Q24H ONE Rx#:[id number] Oral 95 Output: Urine 600 1550 Other: # Voids 1 # Bowel Movements 1 Weight 69.1 kg Obese with cushingoid features related to recurrent steroid use. She is in moderate degree of respiratory distress even at rest.Head exam was generally normal. There was no scleral icterus or corneal arcus. Mucous membranes were moist.Neck was supple and without jugular venous distension, thyromegaly, or carotid bruits. Carotids were easily palpable bilaterally. There was no adenopathy. Lung sounds are diminished bilaterally along with that there is diffuse extremity wheezes throughout the lung his bilaterally. The patient has scattered rhonchi. Heart sounds are irregular, tachycardic, positive S1-S2, no significant murmurs appreciated.Abdominal exam revealed normal bowel sounds. The abdomen was soft, non-tender, and without masses, organomegaly, or appreciable enlargement of the abdominal aorta.Examination of the extremities revealed easily palpable radial, femoral and pedal pulses. There was no cyanosis , clubbing and the patient has +1-2 pitting edema in lower extremities bilaterally. Results - Laboratory Findings CBC and BMP: 12/23/16 00:33 12/23/16 00:33 PT/INR, D-dimer PT 11.9 sec (9.0-12.0) 12/23/16 00:33 INR 1.2 (<1.1) 12/23/16 00:33 Abnormal lab findings: Abnormal Labs 12/23/16 12/23/16 11:51 16:58 POC Glucose (mg/dL) 174 H 141 H - Diagnostic Findings Chest x-ray: image reviewed Assessment and Plan Plan: Assessment 1 advanced oxygen-dependent COPD, severe with an FEV1 of 30% of predicted, 2 Re-hospitalization for an acute COPD exacerbation, this is a readmission for this patient was unable to stay at home for more than 24 hours and she had to come back for increased shortness of breath and it's a fibrillation with rapid ventricular response. 3 CHF with an ejection fraction of 30% of predicted with severe palmar hypertension 4 chronic atrial fibrillation with rapid ventricular response at a time of admission 5 oropharyngeal thrush treated with Diflucan. 6 restless leg syndrome 7 fibromyalgia 8 hyperlipidemia 9 hypertension 10 diffuse degenerative arthritis involving multiple joints 11 hypothyroidism 12 worsening in lower extremity edema 13 impaired performance and functional status secondary to above-mentioned comorbidities. Plan We'll treat this patient again for COPD exacerbation and atrial fibrillation fibrillation with rapid ventricular response. In terms of her COPD exacerbation , the patient will placed back on bronchodilators and IV Solu-Medrol. The patient will be taken of the Symbicort and she will be switched a combination of Pulmicort Respules and Perforomist neb last treatment twice a day. Completed course of Diflucan for total of 7 days. Noted increased lower extremity edema the patient will placed on Lasix 40 mg IV every 12 hours. Cardizem drip for rate control. Continue oral anticoagulation with Apixaban. May need a bronchoscopy at a later stage for therapeutic airway suctioning specially if she continues to have a congested cough and failed response to COPD exacerbation treatment.
[2016-12-23] MEDS: BUDESONIDE 0.5 MG/2 ML NEBU INHALATION SCH (19:33)
[2016-12-23] MEDS: FORMOTEROL FUMARATE 20 MCG/2 ML NEBU INHALATION SCH (19:33)
[2016-12-23] MEDS: ASPIRIN 81 MG CHEW PO SCH (20:19)
[2016-12-23] MEDS: ATORVASTATIN 80 MG TAB PO SCH (20:19)
[2016-12-23] MEDS: ONDANSETRON 4 MG/2 ML VIAL IVP PRN (20:35)
[2016-12-23 20:51] LABS: Glucose,Whole Blood 166 mg/dL (75-99)
[2016-12-23] MEDS: MELATONIN 5 MG TABLET PO PRN (21:05)
[2016-12-24] MEDS: IPRATROPIUM-ALBUTEROL 3 ML NEB INHALATION PRN ×5 (02:54→20:11)
[2016-12-24 06:01] LABS: Glucose,Whole Blood 166 mg/dL (75-99)
[2016-12-24 06:20] LABS: Blood Urea Nitrogen 42 mg/dL (7-17); Calcium 8.6 mg/dL (8.4-10.2); Chloride 83 mmol/L (98-107); Glucose 163 mg/dL (74-99); Non-African American GFR(MDRD) >60 (>60 ml/min/1.73 sqM); Potassium 4.2 mmol/L (3.5-5.1); Sodium 137 mmol/L (137-145)
[2016-12-24 06:28] LABS: Anion Gap 7 mmol/L
[2016-12-24] MEDS: LEVOTHYROXINE 125 MCG TAB PO SCH (06:34)
[2016-12-24] MEDS: INSULIN LISPRO (humaLOG) 300 UNIT/3 ML VIAL SQ SCH ×4 (06:34→21:52)
[2016-12-24] MEDS: hydrALAZINE HCL 25 MG TAB PO SCH ×3 (06:34→17:20)
[2016-12-24] MEDS: methylPREDNISolone SOD SUCCI 125 MG/2 ML VIAL IV SCH ×4 (06:34→23:09)
[2016-12-24 06:36] LABS: Carbon Dioxide 47 mmol/L (22-30)
[2016-12-24] MEDS: ONDANSETRON 4 MG/2 ML VIAL IVP PRN ×2 (07:03→14:11)
[2016-12-24] MEDS: BUDESONIDE 0.5 MG/2 ML NEBU INHALATION SCH ×2 (08:49→20:11)
[2016-12-24] MEDS: FORMOTEROL FUMARATE 20 MCG/2 ML NEBU INHALATION SCH ×2 (08:49→20:11)
--- NOTE | 2016-12-24 09:00 | PN ---
Mrs. Saucedo is a 61 -year-old female with a known history of severe chronic obstructive lung disease, history of peripheral vascular disease, history of chronic atrial fibrillation who was recently discharged from the hospital, but readmitted with progressive dyspnea. She is feeling slightly better today. She denies any symptoms of chest discomfort. She continues to be in atrial fibrillation, although her rate is better. She denies any dizziness or palpitation. She remains nauseated. Her cough has improved. She continues to be on Eliquis 5 mg twice a day, aspirin 20 mg daily, Plavix 75 mg daily, Lipitor 80 mg daily, diltiazem IV, Lasix 40 mg IV q.12 hours, metoprolol tartrate 50 mg 3 times a day, hydralazine 25 mg 3 times a day. PHYSICAL EXAMINATION: Blood pressure 118/50 with a heart rate in 90s. LUNGS: With decreased air exchange with scattered wheezes. HEART: Irregularly irregular. S1, S2, no S3, no rub. ABDOMEN: Soft, nontender. EXTREMITIES: +1 edema. Lab data revealed BUN and creatinine 42 and 0.62, her bicarb is 47, potassium 4.2. IMPRESSION: 1. Exacerbation of chronic obstructive pulmonary disease in a patient with known history of severe chronic obstructive lung disease. 2. Chronic atrial fibrillation, rate under better control. 3. History of cardiomyopathy. 4. Peripheral vascular disease. 5. Hypertension. 6. Hyperlipidemia. RECOMMENDATIONS: I will switch her to oral diuretics as well as oral Cardizem. Continue the rest of medical regimen. Follow her renal function. She may require Diamox because of the elevated bicarb. She is being treated by Dr. Guallpa regarding her lung status. Unfortunately, the prognosis is guarded.
[2016-12-24] MEDS: FLUCONAZOLE 100 MG TAB PO SCH (09:29)
[2016-12-24] MEDS: FUROSEMIDE 40 MG TAB PO SCH ×2 (09:29→20:59)
[2016-12-24] MEDS: APIXABAN 5 MG TAB PO SCH ×2 (09:29→20:29)
[2016-12-24] MEDS: AMOXIC-POT CLAV 500-125 MG 1 EACH TAB PO SCH ×2 (09:29→20:28)
[2016-12-24] MEDS: CLOPIDOGREL 75 MG TAB PO SCH (09:29)
[2016-12-24] MEDS: METOPROLOL TARTRATE 50 MG TAB PO SCH ×3 (09:30→20:31)
[2016-12-24] MEDS: guaiFENesin 600 MG TABLET.ER PO SCH ×2 (09:30→20:30)
[2016-12-24] MEDS: DILTIAZEM ORAL 30 MG TAB PO SCH ×3 (09:30→20:30)
[2016-12-24] MEDS: FAMOTIDINE 20 MG TAB PO SCH (09:30)
[2016-12-24 11:49] LABS: Glucose,Whole Blood 181 mg/dL (75-99)
[2016-12-24 17:02] LABS: Glucose,Whole Blood 160 mg/dL (75-99)
--- NOTE | 2016-12-24 17:39 | PN ---
DATE OF SERVICE: 12/24/2016 PRESENTING COMPLAINT: Short of breath. INTERVAL HISTORY: This is a patient who was readmitted with acute chronic obstructive pulmonary disease exacerbation, atrial flutter fibrillation with rapid ventricular rate. Rate is now better controlled. Patient is very tired, not eating much. Lying in bed. Review of systems done for constitutional, cardiovascular, GI, pulmonary; relevant findings as above. The patient has edema. Current medications are reviewed that include Augmentin, p.o. Lasix and IV Solu-Medrol. On examination, temperature 97.5, pulse 97, respiration 18, blood pressure 120/69, pulse ox 94% on 2 liters. GENERAL APPEARANCE: Lying in bed, tired appearing. EYES: Pupils equal. Conjunctivae normal. NECK: JVD not raised. Mass not palpable. RESPIRATORY: Effort increased. LUNGS: Diminished breath sounds. CARDIAC: Irregular. Edema present. ABDOMEN: Soft, liver and spleen not palpable. PSYCHIATRY: Alert and oriented x3.Mood and affect low appearing. INVESTIGATIONS: Potassium 4.2. BUN 42, creatinine 0.62, Accu-Cheks are noted. ASSESSMENT: 1. Atrial flutter fibrillation with rapid ventricular on presentation: Now rate is better controlled. Patient had electrophysiology study and ablation done in the past. 2. Chronic congestive heart failure exacerbation from systolic dysfunction, ejection fraction 30% to 35% from underlying coronary artery disease. 3. Acute chronic obstructive pulmonary disease exacerbation, advanced lung condition. 4. Restless leg syndrome. 5. Fibromyalgia. 6. Hyperlipidemia. 7. Essential hypertension. 8. Primary osteoarthritis multiple joints, bilateral. 9. Chronic hypoxic respiratory failure from underlying chronic obstructive pulmonary disease on 2 liters of oxygen at home. 10. Hypothyroidism. 11. ( ) secondary pulmonary hypertension secondary to chronic obstructive pulmonary disease. 12. Severe tricuspid regurgitation. 13. ( ) PLAN: Continue current medication and treatment plan. Care was discussed with the patient. Overall prognosis is guarded. Await further input from Pulmonary.
--- NOTE | 2016-12-24 17:47 | P.PN ---
Subjective 61-year-old female patient with advanced oxygen-dependent COPD, congestion heart failure with ejection fraction of 30-35% and chronic atrial fibrillation who was readmitted to the hospital following 24 hours of being discharged. Noted the patient was in the hospital between 12/14/2016 and 12/21/2016 and during the earlier hospitalization the patient was treated for an acute COPD exacerbation and CHF. She also developed extensive oropharyngeal thrush for which she was placed on Diflucan. Note that the patient's recovery was slow during her earlier hospitalization. During this catheterization the patient developed an acute kidney injury from aggressive diuresis and prerenal effect of diuretics. The patient was given IV fluids and her renal function stabilized and normalized. She had cushingoid features related to chronic and recurrent steroid use. She has multiple other comorbidities as will be discussed earlier. Following her discharge from the hospital, the patient continued to be doing poorly. She was unable to move around or perform activities of daily life. She continued to have increased cough and chest congestion and she is unable to bring up any sputum. No fever or chills. No chest pain. She has developed increased swelling in the lower extremities. She came into the emergency department and yet again she was found to be in atrial fibrillation with rapid ventricular response. She was placed on a Cardizem drip for rate control. She has been on long-term anticoagulation with Eliquis and she had been completing a course of Augmentin and Diflucan and a prednisone burst taper. Her maintenance stop the medication including combination of Dulera and Spiriva. She has been doing poorly and she has been unable to perform activities of day to day life. Her baseline FEV1 of 30% On 12/24/2016, the patient is slightly improved compared to yesterday. She is responding to the diuresis however this is small diuresis and the patient's legs remain quite swollen and the patient will be started on a combination of Lasix and Zaroxolyn will be added to improve her diuresis. She is on bronchodilators pH is on systemic steroids. She is also completing course of Augmentin and Diflucan. She has a congested cough. Objective - Vital Signs Vital signs: Vital Signs Temp 97.5 F L 12/24/16 15:31 Pulse 90 12/24/16 16:04 Resp 18 12/24/16 15:31 BP 125/69 12/24/16 15:31 Pulse Ox 94 L 12/24/16 15:31 Intake & Output 12/23/16 12/24/16 12/24/16 18:59 06:59 18:59 Intake Total 172.333 225 315 Output Total 1550 400 275 Balance -1377.667 -175 40 Weight 67.7 kg Intake: IV 45 275 Diltiazem 125 mg In 15 55 Sodium Chloride 0.9% 100 ml @ 5 MG/HR 5 mls/hr IV .Q24H ONE Rx#:[id number] Sodium Chloride 0.9% 30 220 Intake, IV Titration 77.333 Amount Diltiazem 125 mg In 77.333 Sodium Chloride 0.9% 100 ml @ 5 MG/HR 5 mls/hr IV .Q24H ONE Rx#:[id number] Oral 95 180 40 Output: Urine 1550 400 275 Other: # Voids 1 # Bowel Movements 1 - Exam Obese with cushingoid features related to recurrent steroid use. She is in moderate degree of respiratory distress even at rest.Head exam was generally normal. There was no scleral icterus or corneal arcus. Mucous membranes were moist.Neck was supple and without jugular venous distension, thyromegaly, or carotid bruits. Carotids were easily palpable bilaterally. There was no adenopathy. Lung sounds are diminished bilaterally along with that there is diffuse extremity wheezes throughout the lung his bilaterally. The patient has scattered rhonchi. Heart sounds are irregular, tachycardic, positive S1-S2, no significant murmurs appreciated.Abdominal exam revealed normal bowel sounds. The abdomen was soft, non-tender, and without masses, organomegaly, or appreciable enlargement of the abdominal aorta.Examination of the extremities revealed easily palpable radial, femoral and pedal pulses. There was no cyanosis , clubbing and the patient has +1-2 pitting edema in lower extremities bilaterally. - Labs CBC & Chem 7: 12/23/16 00:33 12/24/16 05:42 Labs: Abnormal Lab Results - Last 24 Hours (Table) 12/23/16 12/24/16 12/24/16 Range/Units 20:50 05:42 05:59 Chloride 83 L (98-107) mmol/L Carbon Dioxide 47 H* (22-30) mmol/L BUN 42 H (7-17) mg/dL Glucose 163 H (74-99) mg/dL POC Glucose (mg/dL) 166 H 166 H (75-99) mg/dL 12/24/16 12/24/16 Range/Units 11:47 16:55 Chloride (98-107) mmol/L Carbon Dioxide (22-30) mmol/L BUN (7-17) mg/dL Glucose (74-99) mg/dL POC Glucose (mg/dL) 181 H 160 H (75-99) mg/dL Assessment and Plan Plan: Assessment 1 advanced oxygen-dependent COPD, severe with an FEV1 of 30% of predicted, 2 Re-hospitalization for an acute COPD exacerbation, this is a readmission for this patient was unable to stay at home for more than 24 hours and she had to come back for increased shortness of breath and it's a fibrillation with rapid ventricular response. On 12/24/2016, the patient is still being treated for an acute COPD exacerbation pH is less short of breath. Atrial fibrillation is also improved in terms of the rate control and the patient was taken off the Cardizem drip. 3 CHF with an ejection fraction of 30% of predicted with severe palmar hypertension 4 chronic atrial fibrillation with rapid ventricular response , currently under better rate control and the patient was taken off the Cardizem drip 5 oropharyngeal thrush treated with Diflucan. 6 restless leg syndrome 7 fibromyalgia 8 hyperlipidemia 9 hypertension 10 diffuse degenerative arthritis involving multiple joints 11 hypothyroidism 12 worsening in lower extremity edema 13 impaired performance and functional status secondary to above-mentioned comorbidities. Plan Continue current treatment of bronchodilators which include DuoNeb nebulized she with [id number], Pulmicort and Perforomist neb last treatment twice a day, IV Solu Medrol 60 mg every 6 hours. We will start the patient on Zaroxolyn 2.5 mg twice a day half an hour prior to Lasix which is set at a dose of 40 mg every 12 hours. Monitor urine output. Monitor electrolytes. Monitor blood pressure. We'll follow
[2016-12-24] MEDS: METOLAZONE 2.5 MG TAB PO SCH (20:25)
[2016-12-24] MEDS: METOCLOPRAMIDE 5 MG/ML 2 ML VIAL IVP PRN (20:25)
[2016-12-24] MEDS: ATORVASTATIN 80 MG TAB PO SCH (20:30)
[2016-12-24] MEDS: ASPIRIN 81 MG CHEW PO SCH (20:30)
[2016-12-24 21:31] LABS: Glucose,Whole Blood 209 mg/dL (75-99)
[2016-12-24] MEDS: MELATONIN 5 MG TABLET PO PRN (21:52)
[2016-12-25] MEDS: methylPREDNISolone SOD SUCCI 125 MG/2 ML VIAL IV SCH ×2 (06:40→12:22)
[2016-12-25] MEDS: LEVOTHYROXINE 125 MCG TAB PO SCH (06:41)
[2016-12-25] MEDS: hydrALAZINE HCL 25 MG TAB PO SCH ×3 (06:41→16:31)
[2016-12-25] MEDS: INSULIN LISPRO (humaLOG) 300 UNIT/3 ML VIAL SQ SCH ×4 (06:47→21:56)
[2016-12-25 06:53] LABS: Glucose,Whole Blood 161 mg/dL (75-99)
[2016-12-25 06:54] LABS: Blood Urea Nitrogen 46 mg/dL (7-17); Calcium 8.6 mg/dL (8.4-10.2); Glucose 155 mg/dL (74-99); Non-African American GFR(MDRD) >60 (>60 ml/min/1.73 sqM); Sodium 134 mmol/L (137-145)
[2016-12-25 07:02] LABS: Anion Gap 4 mmol/L
[2016-12-25 07:19] LABS: Carbon Dioxide 53 mmol/L (22-30); Chloride 77 mmol/L (98-107)
[2016-12-25] MEDS: METOLAZONE 2.5 MG TAB PO SCH ×2 (08:27→20:17)
[2016-12-25] MEDS: METOCLOPRAMIDE 5 MG/ML 2 ML VIAL IVP PRN (08:30)
[2016-12-25 08:31] LABS: Glucose,Whole Blood 162 mg/dL (75-99)
[2016-12-25] MEDS: AMOXIC-POT CLAV 500-125 MG 1 EACH TAB PO SCH ×2 (09:02→21:34)
[2016-12-25] MEDS: DILTIAZEM ORAL 30 MG TAB PO SCH ×3 (09:02→21:34)
[2016-12-25] MEDS: guaiFENesin 600 MG TABLET.ER PO SCH ×2 (09:03→21:34)
[2016-12-25] MEDS: APIXABAN 5 MG TAB PO SCH ×2 (09:03→21:36)
[2016-12-25] MEDS: FUROSEMIDE 40 MG TAB PO SCH (09:03)
[2016-12-25] MEDS: CLOPIDOGREL 75 MG TAB PO SCH (09:03)
[2016-12-25] MEDS: FAMOTIDINE 20 MG TAB PO SCH (09:03)
[2016-12-25] MEDS: METOPROLOL TARTRATE 50 MG TAB PO SCH ×3 (09:03→21:35)
[2016-12-25] MEDS: FLUCONAZOLE 100 MG TAB PO SCH (09:04)
[2016-12-25] MEDS: FORMOTEROL FUMARATE 20 MCG/2 ML NEBU INHALATION SCH ×2 (10:12→20:25)
[2016-12-25] MEDS: BUDESONIDE 0.5 MG/2 ML NEBU INHALATION SCH ×2 (10:12→20:25)
[2016-12-25] MEDS: IPRATROPIUM-ALBUTEROL 3 ML NEB INHALATION PRN ×4 (10:12→20:25)
[2016-12-25 11:57] LABS: Glucose,Whole Blood 155 mg/dL (75-99)
[2016-12-25] MEDS: MAGNESIUM SULFATE-D5W PMX 1 GM in DEXTROSE/WATER 1 100ML.BAG IVPB SCH ×2 (12:21→13:22)
[2016-12-25] MEDS: FUROSEMIDE 10 MG/ML 4 ML VIAL IV SCH ×2 (13:24→21:34)
--- NOTE | 2016-12-25 13:55 | P.PN ---
Subjective Principal diagnosis: Acute exacerbation of COPD and congestive heart failure secondary to LV dysfunction 61-year-old female patient with advanced oxygen-dependent COPD, congestion heart failure with ejection fraction of 30-35% and chronic atrial fibrillation who was readmitted to the hospital following 24 hours of being discharged. Noted the patient was in the hospital between 12/14/2016 and 12/21/2016 and during the earlier hospitalization the patient was treated for an acute COPD exacerbation and CHF. She also developed extensive oropharyngeal thrush for which she was placed on Diflucan. Note that the patient's recovery was slow during her earlier hospitalization. During this catheterization the patient developed an acute kidney injury from aggressive diuresis and prerenal effect of diuretics. The patient was given IV fluids and her renal function stabilized and normalized. She had cushingoid features related to chronic and recurrent steroid use. She has multiple other comorbidities as will be discussed earlier. Following her discharge from the hospital, the patient continued to be doing poorly. She was unable to move around or perform activities of daily life. She continued to have increased cough and chest congestion and she is unable to bring up any sputum. No fever or chills. No chest pain. She has developed increased swelling in the lower extremities. She came into the emergency department and yet again she was found to be in atrial fibrillation with rapid ventricular response. She was placed on a Cardizem drip for rate control. She has been on long-term anticoagulation with Eliquis and she had been completing a course of Augmentin and Diflucan and a prednisone burst taper. Her maintenance stop the medication including combination of Dulera and Spiriva. She has been doing poorly and she has been unable to perform activities of day to day life. Her baseline FEV1 of 30% On 12/24/2016, the patient is slightly improved compared to yesterday. She is responding to the diuresis however this is small diuresis and the patient's legs remain quite swollen and the patient will be started on a combination of Lasix and Zaroxolyn will be added to improve her diuresis. She is on bronchodilators pH is on systemic steroids. She is also completing course of Augmentin and Diflucan. She has a congested cough. On 12/25/2016, patient is responding well to treatment but she continues to cough and wheeze. Continues to have significant wheezing on physical examination today. Hence she is not quite ready for discharge planning. Objective - Vital Signs Vital signs: Vital Signs Temp 97.2 F L 12/25/16 11:13 Pulse 86 12/25/16 13:46 Resp 18 12/25/16 11:13 BP 124/59 12/25/16 11:13 Pulse Ox 94 L 12/25/16 11:13 Intake & Output 12/24/16 12/25/16 12/25/16 18:59 06:59 18:59 Intake Total 505 237 Output Total 275 1250 Balance 230 -1250 237 Weight 67.8 kg Intake: IV 275 Diltiazem 125 mg In 55 Sodium Chloride 0.9% 100 ml @ 5 MG/HR 5 mls/hr IV .Q24H ONE Rx#:[id number] Sodium Chloride 0.9% 220 Oral 230 237 Output: Urine 275 1250 Other: # Voids 1 # Bowel Movements 1 - Exam Obese with cushingoid features related to recurrent steroid use. She is in moderate degree of respiratory distress even at rest.Head exam was generally normal. There was no scleral icterus or corneal arcus. Mucous membranes were moist.Neck was supple and without jugular venous distension, thyromegaly, or carotid bruits. Carotids were easily palpable bilaterally. There was no adenopathy. Lung sounds are diminished bilaterally along with that there is diffuse extremity wheezes throughout the lung his bilaterally. The patient has scattered rhonchi. Heart sounds are irregular, tachycardic, positive S1-S2, no significant murmurs appreciated.Abdominal exam revealed normal bowel sounds. The abdomen was soft, non-tender, and without masses, organomegaly, or appreciable enlargement of the abdominal aorta.Examination of the extremities revealed easily palpable radial, femoral and pedal pulses. There was no cyanosis , clubbing and the patient has +1-2 pitting edema in lower extremities bilaterally. - Labs CBC & Chem 7: 12/23/16 00:33 12/25/16 06:00 Labs: Abnormal Lab Results - Last 24 Hours (Table) 12/23/16 12/24/16 12/24/16 Range/Units 06:04 16:55 21:20 Sodium (137-145) mmol/L Chloride (98-107) mmol/L Carbon Dioxide (22-30) mmol/L BUN (7-17) mg/dL Glucose (74-99) mg/dL POC Glucose (mg/dL) 162 H 160 H 209 H (75-99) mg/dL 12/25/16 12/25/16 12/25/16 Range/Units 06:00 06:43 11:55 Sodium 134 L (137-145) mmol/L Chloride 77 L* (98-107) mmol/L Carbon Dioxide 53 H* (22-30) mmol/L BUN 46 H (7-17) mg/dL Glucose 155 H (74-99) mg/dL POC Glucose (mg/dL) 161 H 155 H (75-99) mg/dL Assessment and Plan Plan: 1 advanced oxygen-dependent COPD, severe with an FEV1 of 30% of predicted, 2 Re-hospitalization for an acute COPD exacerbation, this is a readmission for this patient was unable to stay at home for more than 24 hours and she had to come back for increased shortness of breath and it's a fibrillation with rapid ventricular response. On 12/24/2016, the patient is still being treated for an acute COPD exacerbation pH is less short of breath. Atrial fibrillation is also improved in terms of the rate control and the patient was taken off the Cardizem drip. 3 CHF with an ejection fraction of 30% of predicted with severe palmar hypertension 4 chronic atrial fibrillation with rapid ventricular response , currently under better rate control and the patient was taken off the Cardizem drip 5 oropharyngeal thrush treated with Diflucan. 6 restless leg syndrome 7 fibromyalgia 8 hyperlipidemia 9 hypertension 10 diffuse degenerative arthritis involving multiple joints 11 hypothyroidism 12 worsening in lower extremity edema 13 impaired performance and functional status secondary to above-mentioned comorbidities. Recommendation: Continue present treatment plan including diuretics, bronchodilators, antibiotics, steroids, not ready for discharge planning, we'll continue to follow. Time with Patient: Less than 30
--- NOTE | 2016-12-25 15:29 | P.PN ---
Subjective Principal diagnosis: Shortness of breath This is a 61-year-old female with known history of severe COPD, peripheral artery disease, chronic persistent atrial fibrillation, who was recently discharged from the hospital and readmitted with progressive dyspnea. She does feel mildly better from her breathing perspective for today however continues to have significant wheezing and peripheral edema. Patient's main complaint this morning is that of persistent nausea. Lab data from today, sodium 134, potassium 4.0, chloride 77, CO2 53 BUN 46 and creatinine 0.4. Magnesium level I.7. Patient was noted to have a run of nonsustained ventricular tachycardia on the monitor. Objective - Vital Signs Vital signs: Vital Signs Temp 97.2 F L 12/25/16 11:13 Pulse 90 12/25/16 15:17 Resp 18 12/25/16 11:13 BP 124/59 12/25/16 11:13 Pulse Ox 94 L 12/25/16 11:13 Intake & Output 12/24/16 12/25/16 12/25/16 18:59 06:59 18:59 Intake Total 505 237 Output Total 275 1250 Balance 230 -1250 237 Weight 67.8 kg 67.8 kg Intake: IV 275 Diltiazem 125 mg In 55 Sodium Chloride 0.9% 100 ml @ 5 MG/HR 5 mls/hr IV .Q24H ONE Rx#:[id number] Sodium Chloride 0.9% 220 Oral 230 237 Output: Urine 275 1250 Other: # Voids 1 # Bowel Movements 1 - Exam PHYSICAL EXAMINATION: HEENT: [Head is atraumatic, normocephalic. Pupils equal, round. Neck is supple. There is elevated jugular venous pressure.] HEART EXAMINATION: Heart S1 and S2 irregular irregular CHEST EXAMINATION: Lungs reveal scattered wheezing throughout. ABDOMEN: [ Soft, nontender. Bowel sounds are heard. No organomegaly noted]. EXTREMITIES:[ 2+ peripheral pulses with 1-2+ evidence of peripheral edema and no calf tenderness noted]. NEUROLOGIC [patient is awake, alert and oriented -3.] . - Labs CBC & Chem 7: 12/23/16 00:33 12/25/16 06:00 Labs: Abnormal Lab Results - Last 24 Hours (Table) 12/23/16 12/24/16 12/24/16 Range/Units 06:04 16:55 21:20 Sodium (137-145) mmol/L Chloride (98-107) mmol/L Carbon Dioxide (22-30) mmol/L BUN (7-17) mg/dL Glucose (74-99) mg/dL POC Glucose (mg/dL) 162 H 160 H 209 H (75-99) mg/dL 12/25/16 12/25/16 12/25/16 Range/Units 06:00 06:43 11:55 Sodium 134 L (137-145) mmol/L Chloride 77 L* (98-107) mmol/L Carbon Dioxide 53 H* (22-30) mmol/L BUN 46 H (7-17) mg/dL Glucose 155 H (74-99) mg/dL POC Glucose (mg/dL) 161 H 155 H (75-99) mg/dL Assessment and Plan (1) Acute exacerbation of chronic obstructive airways disease Status: Acute (2) CAD (coronary artery disease) Status: Acute (3) Chronic atrial fibrillation Status: Acute (4) EtOH dependence Status: Acute (5) Hypothyroid Status: Acute (6) NICM (nonischemic cardiomyopathy) Status: Acute (7) Nicotine dependence Status: Acute (8) PAD (peripheral artery disease) Status: Acute Plan: From cardiology's perspective, we will recommend to discontinue by mouth Lasix and give the patient IV Lasix today along with her Zaroxolyn. We will also repeat a chest x-ray monitor intake and output along with daily weights. Overall prognosis is guarded. DNP note has been reviewed, I agree with a documented findings and plan of care. Patient was seen and examined.
[2016-12-25 17:08] LABS: Glucose,Whole Blood 330 mg/dL (75-99)
--- NOTE | 2016-12-25 21:19 | PN ---
DATE OF SERVICE: 12/25/2016 PRESENTING COMPLAINT: Tired. INTERVAL HISTORY: This patient was readmitted with acute severe chronic obstructive pulmonary disease exacerbation, atrial flutter/fibrillation with rapid ventricular rate. Heart rate is in the 110s. A lot of PVCs. Patient is not feeling much like eating, feeling rather depressed. Review of systems done for constitutional, cardiovascular, GI, pulmonary; relevant findings as above. Current medications are reviewed that include IV Lasix, IV Solu-Medrol. On examination, temperature 97.2, pulse ox 95, respirations 18, blood pressure 120/59, pulse ox 94% on 2 liters. GENERAL APPEARANCE: Sitting in bed, tired-appearing. EYES: Pupils equal, conjunctivae normal. NECK: JVD not raised. Mass not palpable. RESPIRATORY: Effort normal. LUNGS: Diminished breath sounds. CARDIOVASCULAR: Heart irregular. Edema present. ABDOMEN: Soft. Liver and spleen and spleen not palpable. PSYCHIATRY: Alert and oriented x3. Mood and normal. INVESTIGATIONS: Chloride 77, ( ) 53, BUN 46. ASSESSMENT: 1. Atrial flutter/fibrillation with rapid ventricular rate on presentation. Heart rate is still on the higher side. The patient has previously had EP study and ablation in the past. 2. Acute on chronic congestive heart failure exacerbation, systolic dysfunction; ejection fraction 30% to 35%, underlying coronary artery disease. The patient is back on IV Lasix. 3. Acute chronic obstructive pulmonary disease exacerbation with advanced lung condition. Some clinical improvement. 4. Restless leg syndrome. 5. Fibromyalgia. 6. Hyperlipidemia. 7. Essential hypertension. 8. Primary osteoarthritis of multiple joints, bilateral. 9. Chronic hypoxic respiratory failure from underlying chronic obstructive pulmonary disease, on 2 L oxygen. 10. Hypothyroidism. 11. Secondary pulmonary hypertension secondary to COPD. 12. Severe tricuspid regurgitation. 13. Possible major depression. PLAN: At this point, we will add some Diamox. Cut back on Solu-Medrol. Patient is put on IV Lasix. Overall prognosis is guarded. We will also consult psychiatry.
[2016-12-25] MEDS: ASPIRIN 81 MG CHEW PO SCH (21:36)
[2016-12-25] MEDS: ATORVASTATIN 80 MG TAB PO SCH (21:36)
[2016-12-25] MEDS: acetaZOLAMIDE 250 MG TAB PO SCH (21:42)
[2016-12-25 21:55] LABS: Glucose,Whole Blood 105 mg/dL (75-99)
[2016-12-25] MEDS: methylPREDNISolone SOD SUCCI 40 MG/ML 1 ML VIAL IV SCH (23:07)
[2016-12-26] MEDS: hydrALAZINE HCL 25 MG TAB PO SCH ×3 (06:22→17:42)
[2016-12-26] MEDS: LEVOTHYROXINE 125 MCG TAB PO SCH (06:22)
[2016-12-26 06:29] LABS: Blood Urea Nitrogen 44 mg/dL (7-17); Calcium 8.5 mg/dL (8.4-10.2); Glucose 160 mg/dL (74-99); Magnesium 1.9 mg/dL (1.6-2.3); Non-African American GFR(MDRD) >60 (>60 ml/min/1.73 sqM); Potassium 3.5 mmol/L (3.5-5.1); Sodium 130 mmol/L (137-145)
[2016-12-26 06:36] LABS: Anion Gap 6 mmol/L
[2016-12-26 06:41] LABS: Carbon Dioxide 60 mmol/L (22-30); Chloride 64 mmol/L (98-107)
[2016-12-26 06:43] LABS: Glucose,Whole Blood 159 mg/dL (75-99)
[2016-12-26] MEDS: INSULIN LISPRO (humaLOG) 300 UNIT/3 ML VIAL SQ SCH ×4 (06:47→21:56)
[2016-12-26] MEDS: METOLAZONE 2.5 MG TAB PO SCH (08:21)
[2016-12-26] MEDS: methylPREDNISolone SOD SUCCI 40 MG/ML 1 ML VIAL IV SCH ×2 (08:33→17:40)
[2016-12-26] MEDS: guaiFENesin 600 MG TABLET.ER PO SCH ×2 (08:34→21:55)
[2016-12-26] MEDS: CLOPIDOGREL 75 MG TAB PO SCH (08:34)
[2016-12-26] MEDS: DILTIAZEM ORAL 30 MG TAB PO SCH ×3 (08:34→21:56)
[2016-12-26] MEDS: FAMOTIDINE 20 MG TAB PO SCH (08:34)
[2016-12-26] MEDS: METOPROLOL TARTRATE 50 MG TAB PO SCH ×3 (08:34→21:57)
[2016-12-26] MEDS: APIXABAN 5 MG TAB PO SCH ×2 (08:35→21:55)
[2016-12-26] MEDS: acetaZOLAMIDE 250 MG TAB PO SCH ×2 (08:36→21:55)
[2016-12-26] MEDS: FLUCONAZOLE 100 MG TAB PO SCH (08:36)
[2016-12-26] MEDS: AMOXIC-POT CLAV 500-125 MG 1 EACH TAB PO SCH ×2 (08:37→21:55)
[2016-12-26] MEDS: FUROSEMIDE 10 MG/ML 4 ML VIAL IV SCH (08:37)
[2016-12-26] MEDS: IPRATROPIUM-ALBUTEROL 3 ML NEB INHALATION PRN ×4 (08:52→19:56)
[2016-12-26] MEDS: BUDESONIDE 0.5 MG/2 ML NEBU INHALATION SCH ×2 (08:52→19:56)
[2016-12-26] MEDS: FORMOTEROL FUMARATE 20 MCG/2 ML NEBU INHALATION SCH ×2 (08:52→19:56)
--- NOTE | 2016-12-26 10:05 | XR ---
EXAMINATION TYPE: XR chest 2V DATE OF EXAM: 12/26/2016 9:57 AM COMPARISON: Prior chest x-ray 23 December 2016 HISTORY: Congestive heart failure TECHNIQUE: Frontal and lateral views of the chest are obtained. FINDINGS: There is no focal air space opacity, pleural effusion, or pneumothorax seen. The cardiac silhouette size is stable and enlarged. There are prominent lung volumes suggestive of underlying CO PD. The aorta is dense, there are dense vascular calcifications. The osseous structures are intact. IMPRESSION: No acute cardiopulmonary process.
[2016-12-26 11:47] LABS: Glucose,Whole Blood 182 mg/dL (75-99)
[2016-12-26] MEDS ORDERED: Potassium Replacement Protocol 1 EACH MISC MISCELLANE PRN (13:34)
--- NOTE | 2016-12-26 14:38 | P.PN ---
Subjective Principal diagnosis: Acute exacerbation of COPD and congestive heart failure secondary to LV dysfunction 61-year-old female patient with advanced oxygen-dependent COPD, congestion heart failure with ejection fraction of 30-35% and chronic atrial fibrillation who was readmitted to the hospital following 24 hours of being discharged. Noted the patient was in the hospital between 12/14/2016 and 12/21/2016 and during the earlier hospitalization the patient was treated for an acute COPD exacerbation and CHF. She also developed extensive oropharyngeal thrush for which she was placed on Diflucan. Note that the patient's recovery was slow during her earlier hospitalization. During this catheterization the patient developed an acute kidney injury from aggressive diuresis and prerenal effect of diuretics. The patient was given IV fluids and her renal function stabilized and normalized. She had cushingoid features related to chronic and recurrent steroid use. She has multiple other comorbidities as will be discussed earlier. Following her discharge from the hospital, the patient continued to be doing poorly. She was unable to move around or perform activities of daily life. She continued to have increased cough and chest congestion and she is unable to bring up any sputum. No fever or chills. No chest pain. She has developed increased swelling in the lower extremities. She came into the emergency department and yet again she was found to be in atrial fibrillation with rapid ventricular response. She was placed on a Cardizem drip for rate control. She has been on long-term anticoagulation with Eliquis and she had been completing a course of Augmentin and Diflucan and a prednisone burst taper. Her maintenance stop the medication including combination of Dulera and Spiriva. She has been doing poorly and she has been unable to perform activities of day to day life. Her baseline FEV1 of 30% On 12/24/2016, the patient is slightly improved compared to yesterday. She is responding to the diuresis however this is small diuresis and the patient's legs remain quite swollen and the patient will be started on a combination of Lasix and Zaroxolyn will be added to improve her diuresis. She is on bronchodilators pH is on systemic steroids. She is also completing course of Augmentin and Diflucan. She has a congested cough. On 12/25/2016, patient is responding well to treatment but she continues to cough and wheeze. Continues to have significant wheezing on physical examination today. Hence she is not quite ready for discharge planning. On 12/26/2016, patient is feeling slightly improved, but again continues to have intermittent cough and wheezing, feels generally weak, not quite ready for discharge at this point. Looking at her labs, her bicarb is 60, hence the patient is most likely a significant CO2 retainer, and I will arrange for ABG to be done. If we determined that her pCO2 is quite high, potentially may consider patient for BiPAP at home. In the meantime I will discontinue her Lasix, and place her on Diamox instead. The chest x-ray is showing no evidence of pulmonary edema at this point. I have also discontinued Zaroxolyn, and in the meantime we'll continue to monitor electrolytes and renal profile. Objective - Vital Signs Vital signs: Vital Signs Temp 97.0 F L 12/26/16 08:20 Pulse 88 12/26/16 12:44 Resp 18 12/26/16 08:20 BP 107/53 12/26/16 08:20 Pulse Ox 90 L 12/26/16 08:20 Intake & Output 12/25/16 12/26/16 12/26/16 18:59 06:59 18:59 Intake Total 1390 600 120 Output Total 1081 133 6725 Balance -110 -300 -1180 Weight 67.8 kg 68.7 kg Intake: IV 200 Magnesium Sulfate-D5w Pmx 200 1 gm In Dextrose/Water 1 100ml.bag @ 100 mls/hr IVPB Q1H YOSELIN Rx#: [id number] Oral 1190 600 120 Output: Urine [id number] Other: Voiding Method Toilet # Voids 1 - Exam Obese with cushingoid features related to recurrent steroid use. She is in moderate degree of respiratory distress even at rest.Head exam was generally normal. There was no scleral icterus or corneal arcus. Mucous membranes were moist.Neck was supple and without jugular venous distension, thyromegaly, or carotid bruits. Carotids were easily palpable bilaterally. There was no adenopathy. Lung sounds are diminished bilaterally along with that there is diffuse extremity wheezes throughout the lung his bilaterally. The patient has scattered rhonchi. Heart sounds are irregular, tachycardic, positive S1-S2, no significant murmurs appreciated.Abdominal exam revealed normal bowel sounds. The abdomen was soft, non-tender, and without masses, organomegaly, or appreciable enlargement of the abdominal aorta.Examination of the extremities revealed easily palpable radial, femoral and pedal pulses. There was no cyanosis , clubbing and the patient has +1-2 pitting edema in lower extremities bilaterally. - Labs CBC & Chem 7: 12/23/16 00:33 12/26/16 05:23 Labs: Abnormal Lab Results - Last 24 Hours (Table) 12/25/16 12/25/16 12/26/16 Range/Units 16:46 21:53 05:23 Sodium 130 L (137-145) mmol/L Chloride 64 L* (98-107) mmol/L Carbon Dioxide 60 H* (22-30) mmol/L BUN 44 H (7-17) mg/dL Glucose 160 H (74-99) mg/dL POC Glucose (mg/dL) 330 H 105 H (75-99) mg/dL 12/26/16 12/26/16 Range/Units 06:42 11:46 Sodium (137-145) mmol/L Chloride (98-107) mmol/L Carbon Dioxide (22-30) mmol/L BUN (7-17) mg/dL Glucose (74-99) mg/dL POC Glucose (mg/dL) 159 H 182 H (75-99) mg/dL Assessment and Plan Plan: 1 advanced oxygen-dependent COPD, severe with an FEV1 of 30% of predicted, suspect acute on chronic respiratory failure secondary to hypoxia and hypercapnia. Hence I have recommended ABG to be done today, and if the patient is documented to have significant rise in pCO2 which I expect will be the case, then the patient may be a candidate for BiPAP therapy at home. 2 Re-hospitalization for an acute COPD exacerbation, this is a readmission for this patient was unable to stay at home for more than 24 hours and she had to come back for increased shortness of breath and it's a fibrillation with rapid ventricular response. On 12/24/2016, the patient is still being treated for an acute COPD exacerbation pH is less short of breath. Atrial fibrillation is also improved in terms of the rate control and the patient was taken off the Cardizem drip. On 12/26/2016, patient is slightly better, but not quite ready for any discharge planning at this point. 3 CHF with an ejection fraction of 30% of predicted with severe palmar hypertension 4 chronic atrial fibrillation with rapid ventricular response , currently under better rate control and the patient was taken off the Cardizem drip 5 oropharyngeal thrush treated with Diflucan. 6 restless leg syndrome 7 fibromyalgia 8 hyperlipidemia 9 hypertension 10 diffuse degenerative arthritis involving multiple joints 11 hypothyroidism 12 worsening in lower extremity edema 13 impaired performance and functional status secondary to above-mentioned comorbidities. Recommendation: Hold diuretics including Lasix and Zaroxolyn for now, continue Diamox only, watch closely her electrolytes and renal profile, and I would order ABG to be done today. Based on that ABG, may recommend the BiPAP therapy at home. Time with Patient: Less than 30
--- NOTE | 2016-12-26 14:39 | CONS ---
DATE OF CONSULTATION: REASON FOR CONSULTATION: Anxiety. HISTORY OF PRESENT ILLNESS: Patient is 61, white, female, currently living on her own. Presented with history of anxiety for "at least 7 years", but it has been getting worse lately to the point that she said, "I do feel like dying." Patient complaining of feeling hopeless, helpless, loss of pleasure. No interest to do anything, changes in her sleep as she has been waking up every couple of hours and cannot get back to sleep. Change in her appetite, tiredness, a lot of somatic complaints, feeling dizzy, lightheaded, unsteady. She denied any active or passive suicidal or homicidal ideation. Patient describes increased anxiety and she stated this is due to her multiple medical problems as she said, "I am taking more than 7 or 8 different medications and I am still sick." She endorses feeling on edge, restless, and all with her negative thinking about her medical health. She denied any manic or hypomanic features. She denied any obsessive-compulsive disorder. She denied any psychotic symptoms. PAST PSYCHIATRIC HISTORY: Patient denied being in outpatient counseling, denied any previous suicidal attempt, denied any previous inpatient psychiatric hospitalization. Family history of psychiatric illness: Patient's son committed suicide 7 years ago with overdose on drugs. He was addicted to multiple street drugs. PAST MEDICAL HISTORY: 1. Severe COPD and she is on home oxygen. 2. Atrial fibrillation. 3. Status post stent. 4. Hypertension. 5. Coronary artery disease. 6. Gastroesophageal reflex disease. 7. Hyperlipidemia. 8. Osteoarthritis. 9. Thyroid problem. SUBSTANCE ABUSE HISTORY: She stated that she was smoking since age 13 or 14 up to 2 packs a day but she quit 6 months ago due to severe COPD. She denied any other drug use. Her home medications: Synthroid 125 mcg daily, Lopressor 150 mg 3 times a day, hydralazine 25 mg 3 times a day, Lasix 40 mg twice a day, baby aspirin, Pepcid, [place] every 6 hours p.r.n., melatonin 5 mg at bedtime. Allergy to CIPRO, SYMBICORT. BRIEF SOCIAL HISTORY: Patient had one brother. She stated that she lost her mother who 20 years ago. Patient said that she was very close to her. It seems that the patient has irrational fear that she might the same way as her mother as she said, "my mother was the same age as me right now and she from COPD, she was just 62 years old." Patient had 4 children. As I mentioned before, her son 7 years ago with overdose on drugs and she has 3 grownup children, two living in the area and one living in [place]. Patient was once and ended by divorce after just 7 years. 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 It seems that she does not have any current hobby and her social interaction has been limited especially for the last 6 months. MENTAL STATUS EXAMINATION: Patient is overweight female, very pleasant and polite. She gives good eye contact. She looks very tired with psychomotor retardation. Her speech is non-spontaneous, very limited in productivity. Stated mood "anxious and depressed." She denied any homicidal or suicidal ideation. Affect is constricted. She endorses no hallucination or delusion. She does not appear hypomanic or manic. Her insight and judgment are fair. DIAGNOSES: 1. Anxiety disorder, not otherwise specified. 2. Depressive disorder, unspecified. 3. Rule out delayed grief reaction. 4. Rule out adjustment disorder with mixed depression and anxiety. PLAN: I will start the patient on low-dose of Klonopin instead she has been on Ativan short-acting. Also I will start her on Remeron at bedtime to restore her sleep and her appetite. I do not recommend to continue her Ambien, especially in her age. I will continue to follow up as long as she is on the medical floor; otherwise, patient can be discharged to outpatient behavior medicine at [facility] for counseling and for medication management. Thank you for this consult.
[2016-12-26] MEDS: POTASSIUM CHLORIDE ER 20 MEQ TAB.ER PO SCH ×2 (14:52→17:41)
--- NOTE | 2016-12-26 16:01 | P.PN ---
Subjective Principal diagnosis: Shortness of breath This is a 61-year-old female with known history of severe COPD, peripheral artery disease, chronic persistent atrial fibrillation, who was recently discharged from the hospital and readmitted with progressive dyspnea. She does feel mildly better from her breathing perspective for today however continues to have significant wheezing and peripheral edema. Improvement in edema noted. Continues to be on IV Lasix along with Zaroxolyn. Sodium 1:30, potassium 3.5, chloride 64, CO2 60, BUN 44 and creatinine 0.9. Magnesium level I.9. Patient does appear quite depressed today. She also is requesting to be made a no CODE STATUS. I had a lengthy discussion with the patient and her daughter who is here from [place]. Arrangements are being made to be placed in rehab post discharge. Objective - Vital Signs Vital signs: Vital Signs Temp 97.0 F L 12/26/16 08:20 Pulse 88 12/26/16 12:44 Resp 18 12/26/16 08:20 BP 107/53 12/26/16 08:20 Pulse Ox 90 L 12/26/16 08:20 Intake & Output 12/25/16 12/26/16 12/26/16 18:59 06:59 18:59 Intake Total 1390 600 240 Output Total 1054 221 1490 Balance -110 -300 -1060 Weight 67.8 kg 68.7 kg Intake: IV 200 Magnesium Sulfate-D5w Pmx 200 1 gm In Dextrose/Water 1 100ml.bag @ 100 mls/hr IVPB Q1H YOSELIN Rx#: [id number] Oral 1190 600 240 Output: Urine 5578 157 [id number] Other: Voiding Method Toilet # Voids 1 - Exam PHYSICAL EXAMINATION: HEENT: [Head is atraumatic, normocephalic. Pupils equal, round. Neck is supple. There is elevated jugular venous pressure.] HEART EXAMINATION: Heart S1 and S2 irregular irregular CHEST EXAMINATION: Lungs reveal scattered wheezing throughout. Improvement in bilateral air entry noted ABDOMEN: [ Soft, nontender. Bowel sounds are heard. No organomegaly noted]. EXTREMITIES:[ 2+ peripheral pulses with 1+ evidence of peripheral edema and no calf tenderness noted]. Bilateral Virgilio wraps in place NEUROLOGIC [patient is awake, alert and oriented -3.] . - Labs CBC & Chem 7: 12/23/16 00:33 12/26/16 05:23 Labs: Abnormal Lab Results - Last 24 Hours (Table) 12/25/16 12/25/16 12/26/16 Range/Units 16:46 21:53 05:23 Sodium 130 L (137-145) mmol/L Chloride 64 L* (98-107) mmol/L Carbon Dioxide 60 H* (22-30) mmol/L BUN 44 H (7-17) mg/dL Glucose 160 H (74-99) mg/dL POC Glucose (mg/dL) 330 H 105 H (75-99) mg/dL 12/26/16 12/26/16 Range/Units 06:42 11:46 Sodium (137-145) mmol/L Chloride (98-107) mmol/L Carbon Dioxide (22-30) mmol/L BUN (7-17) mg/dL Glucose (74-99) mg/dL POC Glucose (mg/dL) 159 H 182 H (75-99) mg/dL Assessment and Plan (1) Acute exacerbation of chronic obstructive airways disease Status: Acute (2) CAD (coronary artery disease) Status: Acute (3) Chronic atrial fibrillation Status: Acute (4) EtOH dependence Status: Acute (5) Hypothyroid Status: Acute (6) NICM (nonischemic cardiomyopathy) Status: Acute (7) Nicotine dependence Status: Acute (8) PAD (peripheral artery disease) Status: Acute Plan: From cardiology's perspective, we recommend to continue the patient on IV Lasix. Check lytes BUN and creatinine in the morning. We have also made the patient a no code. DNP note has been reviewed, I agree with a documented findings and plan of care. Patient was seen and examined.
[2016-12-26 16:37] LABS: Glucose,Whole Blood 134 mg/dL (75-99)
[2016-12-26] MEDS: clonazePAM 0.5 MG TAB PO SCH ×2 (17:42→22:05)
[2016-12-26] MEDS ORDERED: MIRTAZAPINE 15 MG TAB PO SCH (21:00)
[2016-12-26 21:07] LABS: Glucose,Whole Blood 207 mg/dL (75-99)
[2016-12-26 21:20] LABS: ABG PCO2 79 mmHg (35-45); ABG PH 7.48 (7.35-7.45)
[2016-12-26 21:21] LABS: ABG PO2 77 mmHg (83-108); ABG TCO2 59 mmol/L (19-24)
[2016-12-26 21:22] LABS: ABG Base Excess >40.0 mmol/L; ABG HCO3 57 mmol/L (21-25)
[2016-12-26] MEDS: ATORVASTATIN 80 MG TAB PO SCH (21:55)
[2016-12-26] MEDS: ASPIRIN 81 MG CHEW PO SCH (21:55)
[2016-12-27] MEDS: MELATONIN 5 MG TABLET PO PRN (01:04)
[2016-12-27] MEDS: methylPREDNISolone SOD SUCCI 40 MG/ML 1 ML VIAL IV SCH ×4 (01:04→23:04)
[2016-12-27 06:13] LABS: Glucose,Whole Blood 162 mg/dL (75-99)
--- NOTE | 2016-12-27 06:36 | PN ---
DATE OF SERVICE: 12/26/2016 PRESENTING COMPLAINT: Tired. INTERVAL HISTORY: Patient with severe COPD exacerbation, atrial flutter fibrillation, ventricular rate an element of CHF. The patient looking more restful today. Did walk a bit. Did eat a little bit. Patient was earlier seen by Psychiatry, Dr. Whitley who diagnosed the patient with anxiety and depression. Patient was started on Klonopin and also put on Remeron. Also seen by cardiology earlier and CODE STATUS was changed to DNR. Review of systems done for constitutional, cardiovascular, GI, pulmonary; relevant findings as above. Current medications are reviewed. The patient remains on IV Solu-Medrol. On examination, temperature 97, pulse 89, respirations 18, blood pressure 132/66, pulse ox 98% on 4 L. GENERAL APPEARANCE: Sitting at the edge of the bed, tired appearing, slightly more perky. EYES: Pupils equal. Conjunctivae normal. NECK: JVD not raised. Mass not palpable. RESPIRATORY: Effort normal. LUNGS: Diminished breath sounds. CARDIOVASCULAR: Heart sounds irregular. Edema present. ABDOMEN: Soft, nontender. Liver and spleen not palpable. PSYCHIATRY: Alert and oriented x3. Mood and affect decreased. INVESTIGATIONS: Patient's blood gas show pH of 7.48, pCO2 of 79. Potassium 3.5. BUN 44, creatinine 0.90. ASSESSMENT: 1. Atrial flutter fibrillation with rapid ventricular rate on presentation with multiple ectopics. Patient has had an EP study and ablation in the past. 2. Acute on chronic congestive heart failure exacerbation systolic dysfunction; ejection fraction 30% to 35% from underlying coronary artery disease, now compensated. 3. Acute chronic obstructive pulmonary disease exacerbation with advanced lung condition, some clinical improvement. 4. Restless leg syndrome. 5. Fibromyalgia. 6. Hyperlipidemia. 7. Essential hypertension. 8. Primary osteoarthritis of multiple joints, bilateral. 9. Chronic hypoxic respiratory failure from underlying chronic obstructive pulmonary disease on 2 L oxygen. 10. Hypothyroidism. 11. Secondary pulmonary hypertension secondary to chronic obstructive pulmonary disease. 12. Severe tricuspid regurgitation, nonrheumatic. 13. Depression, anxiety, not otherwise specified. 14. Hyponatremia suspect hypoosmolar. PLAN: I had started the patient on Diamox yesterday. Solu-Medrol as per Dr. Gonzalez. Lasix has been ( ) by cardiology. ( ) not been held. Also, Dr. Whitley from psychiatry put the patient on Remeron at night and some Klonopin. Patient definitely looks more stable overall. Continue current medication and treatment plan. Will check the patient's sodium and serum osmolality in the morning.
[2016-12-27] MEDS: LEVOTHYROXINE 125 MCG TAB PO SCH (06:49)
[2016-12-27] MEDS: hydrALAZINE HCL 25 MG TAB PO SCH ×3 (06:49→17:00)
[2016-12-27] MEDS: INSULIN LISPRO (humaLOG) 300 UNIT/3 ML VIAL SQ SCH ×4 (06:49→20:57)
[2016-12-27 07:22] LABS: Anion Gap 18 mmol/L; Calcium 8.7 mg/dL (8.4-10.2); Glucose 127 mg/dL (74-99); Non-African American GFR(MDRD) >60 (>60 ml/min/1.73 sqM); Sodium 129 mmol/L (137-145)
[2016-12-27 07:33] LABS: Chloride 71 mmol/L (98-107)
[2016-12-27 07:34] LABS: Blood Urea Nitrogen 46 mg/dL (7-17); Carbon Dioxide >40 mmol/L (22-30); Potassium 4.1 mmol/L (3.5-5.1)
[2016-12-27] MEDS: BUDESONIDE 0.5 MG/2 ML NEBU INHALATION SCH ×2 (09:01→20:35)
[2016-12-27] MEDS: IPRATROPIUM-ALBUTEROL 3 ML NEB INHALATION PRN ×4 (09:01→20:35)
[2016-12-27] MEDS: FORMOTEROL FUMARATE 20 MCG/2 ML NEBU INHALATION SCH ×2 (09:01→20:35)
[2016-12-27] MEDS: CLOPIDOGREL 75 MG TAB PO SCH (09:02)
[2016-12-27] MEDS: AMOXIC-POT CLAV 500-125 MG 1 EACH TAB PO SCH ×2 (09:02→20:57)
[2016-12-27] MEDS: DILTIAZEM ORAL 30 MG TAB PO SCH ×3 (09:02→20:56)
[2016-12-27] MEDS: acetaZOLAMIDE 250 MG TAB PO SCH ×2 (09:02→20:56)
[2016-12-27] MEDS: APIXABAN 5 MG TAB PO SCH ×2 (09:02→20:56)
[2016-12-27] MEDS: METOPROLOL TARTRATE 50 MG TAB PO SCH ×3 (09:03→20:56)
[2016-12-27] MEDS: FAMOTIDINE 20 MG TAB PO SCH (09:04)
[2016-12-27] MEDS: FLUCONAZOLE 100 MG TAB PO SCH (09:04)
[2016-12-27] MEDS: guaiFENesin 600 MG TABLET.ER PO SCH ×2 (09:05→20:56)
[2016-12-27] MEDS: clonazePAM 0.5 MG TAB PO SCH (09:08)
[2016-12-27 11:45] LABS: Glucose,Whole Blood 294 mg/dL (75-99)
--- NOTE | 2016-12-27 13:16 | P.PN ---
Progress Note - Text Interval history: The patient was seen for psychiatric follow-up. She reports that she has been tired and "Very sluggish",was not able to sleep with Remeron and was given PRN 5 mg Melatonin,patient is still having difficulties coping with her multiple medical problems saying "I Am taking lot of pills but I am not getting better",poor motivation and fatigued ,denies any active suicidal ideation Mental status exam: The patient is alert , speech is non spontaneous but fluent non pressured. . She reports feeling more tired on current psychotropic medications, she is reporting no suicidal ideation intent or plan She is endorsing no specific delusion she is endorsing no auditory or visual hallucinations. Insight and judgment limited. Plan: I will change Klonopin to Xanax ,less sedating ,start Lexapro AM , Discontinue Remeron and Start Trazodone and Melatonin as scheduled,will continue to follow-up ,if medically cleared ,please refer her to outpatient therapy
--- NOTE | 2016-12-27 14:03 | P.PN ---
Subjective Principal diagnosis: Acute exacerbation of COPD and congestive heart failure secondary to LV dysfunction 61-year-old female patient with advanced oxygen-dependent COPD, congestion heart failure with ejection fraction of 30-35% and chronic atrial fibrillation who was readmitted to the hospital following 24 hours of being discharged. Noted the patient was in the hospital between 12/14/2016 and 12/21/2016 and during the earlier hospitalization the patient was treated for an acute COPD exacerbation and CHF. She also developed extensive oropharyngeal thrush for which she was placed on Diflucan. Note that the patient's recovery was slow during her earlier hospitalization. During this catheterization the patient developed an acute kidney injury from aggressive diuresis and prerenal effect of diuretics. The patient was given IV fluids and her renal function stabilized and normalized. She had cushingoid features related to chronic and recurrent steroid use. She has multiple other comorbidities as will be discussed earlier. Following her discharge from the hospital, the patient continued to be doing poorly. She was unable to move around or perform activities of daily life. She continued to have increased cough and chest congestion and she is unable to bring up any sputum. No fever or chills. No chest pain. She has developed increased swelling in the lower extremities. She came into the emergency department and yet again she was found to be in atrial fibrillation with rapid ventricular response. She was placed on a Cardizem drip for rate control. She has been on long-term anticoagulation with Eliquis and she had been completing a course of Augmentin and Diflucan and a prednisone burst taper. Her maintenance stop the medication including combination of Dulera and Spiriva. She has been doing poorly and she has been unable to perform activities of day to day life. Her baseline FEV1 of 30% On 12/24/2016, the patient is slightly improved compared to yesterday. She is responding to the diuresis however this is small diuresis and the patient's legs remain quite swollen and the patient will be started on a combination of Lasix and Zaroxolyn will be added to improve her diuresis. She is on bronchodilators pH is on systemic steroids. She is also completing course of Augmentin and Diflucan. She has a congested cough. On 12/25/2016, patient is responding well to treatment but she continues to cough and wheeze. Continues to have significant wheezing on physical examination today. Hence she is not quite ready for discharge planning. On 12/26/2016, patient is feeling slightly improved, but again continues to have intermittent cough and wheezing, feels generally weak, not quite ready for discharge at this point. Looking at her labs, her bicarb is 60, hence the patient is most likely a significant CO2 retainer, and I will arrange for ABG to be done. If we determined that her pCO2 is quite high, potentially may consider patient for BiPAP at home. In the meantime I will discontinue her Lasix, and place her on Diamox instead. The chest x-ray is showing no evidence of pulmonary edema at this point. I have also discontinued Zaroxolyn, and in the meantime we'll continue to monitor electrolytes and renal profile. Reevaluated today on 12/27/2016, clinically the patient is about the same, however her labs are significantly improved. Her severe primary metabolic alkalosis seems to be correcting quite nicely by holding the diuretics and keeping her on Diamox only. ABG from yesterday showed a pO2 of 77 pCO2 of 79 pH of 7.48. Clearly the primary process here is a metabolic alkalosis with respiratory compensation. Hence cutting down the diuretics hydrating the patient's slowly, switch diuretics to Diamox if diuresis is necessary. Would clearly continue to correct her metabolic alkalosis, and the patient should be feeling much better, and her pCO2 will come down nicely. Her bicarb would also correct nicely. Objective - Vital Signs Vital signs: Vital Signs Temp 96.9 F L 12/27/16 11:52 Pulse 88 12/27/16 12:58 Resp 18 12/27/16 11:55 BP 116/88 12/27/16 11:52 Pulse Ox 97 12/27/16 11:52 Intake & Output 12/26/16 12/27/16 12/27/16 18:59 06:59 18:59 Intake Total 240 300 Output Total 2100 300 Balance -1860 -300 300 Weight 65.1 kg Intake: Oral 240 300 Output: Urine 2100 300 Other: Voiding Method Bedside Commode Bedside Commode - Exam Physical examination revealed a 59-year-old female quite lethargic, in no form of respiratory distress. HEENT: [Head is atraumatic, normocephalic. Pupils equal, round. Neck is supple. There is elevated jugular venous pressure.] HEART EXAMINATION: Heart S1 and S2 irregular irregular CHEST EXAMINATION: Diminished breath sounds at the bases with some wheezing on forced expiratory maneuver. ABDOMEN: [ Soft, nontender. Bowel sounds are heard. No organomegaly noted]. EXTREMITIES:[ 2+ peripheral pulses with 1-2+ evidence of peripheral edema and no calf tenderness noted]. NEUROLOGIC [patient is awake, alert and oriented -3.] . - Labs CBC & Chem 7: 12/23/16 00:33 12/27/16 06:12 Labs: Abnormal Lab Results - Last 24 Hours (Table) 12/26/16 12/26/16 12/26/16 Range/Units 16:35 20:55 21:05 ABG pH 7.48 H (7.35-7.45) ABG pCO2 79 H* (35-45) mmHg ABG pO2 77 L (83-108) mmHg ABG HCO3 57 H* (21-25) mmol/L ABG Total CO2 59 H (19-24) mmol/L Sodium (137-145) mmol/L Chloride (98-107) mmol/L Carbon Dioxide (22-30) mmol/L BUN (7-17) mg/dL Glucose (74-99) mg/dL POC Glucose (mg/dL) 134 H 207 H (75-99) mg/dL 12/27/16 12/27/16 12/27/16 Range/Units 06:12 06:12 11:43 ABG pH (7.35-7.45) ABG pCO2 (35-45) mmHg ABG pO2 (83-108) mmHg ABG HCO3 (21-25) mmol/L ABG Total CO2 (19-24) mmol/L Sodium 129 L (137-145) mmol/L Chloride 71 L* (98-107) mmol/L Carbon Dioxide >40 H* (22-30) mmol/L BUN 46 H (7-17) mg/dL Glucose 127 H (74-99) mg/dL POC Glucose (mg/dL) 162 H 294 H (75-99) mg/dL Assessment and Plan Plan: 1 advanced oxygen-dependent COPD, severe with an FEV1 of 30% of predicted, suspect acute on chronic respiratory failure secondary to hypoxia and hypercapnia. Hence I have recommended ABG to be done today, and if the patient is documented to have significant rise in pCO2 which I expect will be the case, then the patient may be a candidate for BiPAP therapy at home. 2 Re-hospitalization for an acute COPD exacerbation, this is a readmission for this patient was unable to stay at home for more than 24 hours and she had to come back for increased shortness of breath and it's a fibrillation with rapid ventricular response. On 12/24/2016, the patient is still being treated for an acute COPD exacerbation pH is less short of breath. Atrial fibrillation is also improved in terms of the rate control and the patient was taken off the Cardizem drip. On 12/26/2016, patient is slightly better, but not quite ready for any discharge planning at this point. On 12/27/2016, patient's labs are significantly improved. Her bicarb is improving. Renal profile would also improved. And I will continue to hold diuretics except Diamox. The ABG which I ordered yesterday showed clearly a primary metabolic alkalosis process. And by fixing her metabolic alkalosis, I expect her respiratory acidosis to improve significantly. Her respiratory issues seems to be compensatory to her primary metabolic problem. 3 CHF with an ejection fraction of 30% of predicted with severe palmar hypertension 4 chronic atrial fibrillation with rapid ventricular response , currently under better rate control and the patient was taken off the Cardizem drip 5 oropharyngeal thrush treated with Diflucan. 6 restless leg syndrome 7 fibromyalgia 8 hyperlipidemia 9 hypertension 10 diffuse degenerative arthritis involving multiple joints 11 hypothyroidism 12 worsening in lower extremity edema 13 impaired performance and functional status secondary to above-mentioned comorbidities. Recommendation: Hold diuretics including Lasix and Zaroxolyn for now, continue Diamox only, watch closely her electrolytes and renal profile, we'll continue to follow. Monitor electrolytes and monitor renal profile on a daily basis. Time with Patient: Less than 30
--- NOTE | 2016-12-27 15:26 | P.PN ---
Subjective Principal diagnosis: Shortness of breath This is a 61-year-old female with known history of severe COPD, peripheral artery disease, chronic persistent atrial fibrillation, who was recently discharged from the hospital and readmitted with progressive dyspnea. Continues to be on IV Lasix along with Zaroxolyn, both of which were discontinued today, patient was initiated on Diamox. Clinically the patient is about the same as yesterday. Labs are significantly improving. Objective - Vital Signs Vital signs: Vital Signs Temp 96.9 F L 12/27/16 11:52 Pulse 88 12/27/16 12:58 Resp 18 12/27/16 11:55 BP 116/88 12/27/16 11:52 Pulse Ox 97 12/27/16 11:52 Intake & Output 12/26/16 12/27/16 12/27/16 18:59 06:59 18:59 Intake Total 240 500 Output Total 2100 300 2400 Balance -1860 -300 -1900 Weight 65.1 kg Intake: Oral 240 500 Output: Urine 2100 300 2400 Other: Voiding Method Bedside Commode Bedside Commode # Voids 5 - Exam PHYSICAL EXAMINATION: HEENT: [Head is atraumatic, normocephalic. Pupils equal, round. Neck is supple. There is elevated jugular venous pressure.] HEART EXAMINATION: Heart S1 and S2 irregular irregular CHEST EXAMINATION: Lungs reveal scattered wheezing throughout. Improvement in bilateral air entry noted ABDOMEN: [ Soft, nontender. Bowel sounds are heard. No organomegaly noted]. EXTREMITIES:[ 2+ peripheral pulses with trace to 1+ evidence of peripheral edema and no calf tenderness noted]. Bilateral Virgilio wraps in place NEUROLOGIC [patient is awake, alert and oriented -3.] . - Labs CBC & Chem 7: 12/23/16 00:33 12/27/16 06:12 Labs: Abnormal Lab Results - Last 24 Hours (Table) 12/26/16 12/26/16 12/26/16 Range/Units 16:35 20:55 21:05 ABG pH 7.48 H (7.35-7.45) ABG pCO2 79 H* (35-45) mmHg ABG pO2 77 L (83-108) mmHg ABG HCO3 57 H* (21-25) mmol/L ABG Total CO2 59 H (19-24) mmol/L Sodium (137-145) mmol/L Chloride (98-107) mmol/L Carbon Dioxide (22-30) mmol/L BUN (7-17) mg/dL Glucose (74-99) mg/dL POC Glucose (mg/dL) 134 H 207 H (75-99) mg/dL 12/27/16 12/27/16 12/27/16 Range/Units 06:12 06:12 11:43 ABG pH (7.35-7.45) ABG pCO2 (35-45) mmHg ABG pO2 (83-108) mmHg ABG HCO3 (21-25) mmol/L ABG Total CO2 (19-24) mmol/L Sodium 129 L (137-145) mmol/L Chloride 71 L* (98-107) mmol/L Carbon Dioxide >40 H* (22-30) mmol/L BUN 46 H (7-17) mg/dL Glucose 127 H (74-99) mg/dL POC Glucose (mg/dL) 162 H 294 H (75-99) mg/dL Assessment and Plan (1) Acute exacerbation of chronic obstructive airways disease Status: Acute (2) CAD (coronary artery disease) Status: Acute (3) Chronic atrial fibrillation Status: Acute (4) EtOH dependence Status: Acute (5) Hypothyroid Status: Acute (6) NICM (nonischemic cardiomyopathy) Status: Acute (7) Nicotine dependence Status: Acute (8) PAD (peripheral artery disease) Status: Acute Plan: From cardiology's perspective, we'll continue the patient on her current medications. Overall prognosis is guarded. DNP note has been reviewed, I agree with a documented findings and plan of care. Patient was seen and examined.
[2016-12-27] MEDS: ALPRAZolam 0.25 MG TAB PO SCH ×2 (16:06→20:56)
[2016-12-27 16:50] LABS: Glucose,Whole Blood 201 mg/dL (75-99)
[2016-12-27] MEDS: ATORVASTATIN 80 MG TAB PO SCH (20:56)
[2016-12-27] MEDS: ASPIRIN 81 MG CHEW PO SCH (20:56)
[2016-12-27] MEDS ORDERED: traZODone HCL 50 MG TAB PO SCH (21:00)
[2016-12-27] MEDS ORDERED: MELATONIN 3 MG TABLET PO SCH (21:00)
[2016-12-27 21:15] LABS: Glucose,Whole Blood 196 mg/dL (75-99)
--- NOTE | 2016-12-27 22:53 | PN ---
DATE OF SERVICE: 12/27/2016 PRESENTING COMPLAINT: Weak, tired. INTERVAL HISTORY: This patient presented with severe COPD exacerbation, atrial flutter fibrillation and CHF exacerbation. The patient is becoming severely alkalotic, probably from volume contraction, hence diuretics were held. Patient is put on Diamox. Patient is tired. Breathing is more stable. Lying flat in bed. Review of systems done for constitutional, cardiovascular, GI, pulmonary; relevant findings as above. Current medications include Diamox, Augmentin, IV Solu-Medrol. On examination, temperature 97.1, pulse 96, respiration 20, blood pressure 125/68, pulse ox 95% on 3 liters. GENERAL APPEARANCE: Lying in bed, tired appearing. EYES: Pupils equal. Normal. NECK: JVD not raised. Mass not palpable. RESPIRATORY: Effort normal. LUNGS: Diminished breath sounds. CARDIOVASCULAR: Heart sounds irregular, decreased edema. ABDOMEN: Soft, nontender. Liver and spleen not palpable. INVESTIGATIONS: Sodium 129. Potassium 4.1, chloride 71, bicarb 40. ASSESSMENT: 1. Atrial flutter fibrillation with rapid ventricular response on presentation with multiple ectopics. Patient had EP studies and ablation in the past. 2. Acute on chronic congestive heart failure exacerbation from systolic dysfunction, ejection fraction 30-35%, underlying coronary artery disease, now compensated. 3. Acute chronic obstructive pulmonary disease exacerbation with ( ) lung condition better. 4. Restless leg syndrome. 5. Fibromyalgia. 6. Hyperlipidemia. 7. Essential hypertension. 8. Primary osteoarthritis of multiple joints, bilateral. 9. Chronic hypoxic respiratory failure from underlying chronic obstructive pulmonary disease on 2 liters of oxygen. 10. Hypothyroidism. 11. Severe secondary pulmonary hypertension secondary to chronic obstructive pulmonary disease. 12. Severe tricuspid regurgitation, nonrheumatic. 13. Depression, anxiety not nonspecific. 14. Hyponatremia suspect hypoosmolar. 15. Hyponatremia, ( ) osmolar. PLAN: Patient diuretics will be held, Diamox to continue. Overall prognosis remains guarded. Patient encouraged to cut back on fluids and increase his salt intake.
[2016-12-28 06:27] LABS: Glucose,Whole Blood 201 mg/dL (75-99)
[2016-12-28] MEDS: hydrALAZINE HCL 25 MG TAB PO SCH ×3 (06:41→17:21)
[2016-12-28] MEDS: INSULIN LISPRO (humaLOG) 300 UNIT/3 ML VIAL SQ SCH ×4 (06:41→21:33)
[2016-12-28] MEDS: LEVOTHYROXINE 125 MCG TAB PO SCH (06:41)
[2016-12-28] MEDS: FORMOTEROL FUMARATE 20 MCG/2 ML NEBU INHALATION SCH ×2 (07:36→20:04)
[2016-12-28] MEDS: IPRATROPIUM-ALBUTEROL 3 ML NEB INHALATION PRN ×4 (07:36→20:04)
[2016-12-28] MEDS: BUDESONIDE 0.5 MG/2 ML NEBU INHALATION SCH ×2 (07:36→20:04)
[2016-12-28 07:49] LABS: CH 31.7; CHCM 31.3; HDW 2.89; HGB 10.2 gm/dL (11.4-16.0); Hypochromasia Slight; MCH 31.4 pg (25.0-35.0); MCHC 30.8 g/dL (31.0-37.0); MCV 101.8 fL (80.0-100.0); Macrocytosis Slight; Mean Platelet Volume 8.1; RBC 3.24 m/uL (3.80-5.40); RDW 15.2 % (11.5-15.5); WBC 13.4 k/uL (3.8-10.6)
[2016-12-28 08:13] LABS: Blood Urea Nitrogen 40 mg/dL (7-17); Calcium 8.7 mg/dL (8.4-10.2); Glucose 163 mg/dL (74-99); Magnesium 1.8 mg/dL (1.6-2.3); Non-African American GFR(MDRD) >60 (>60 ml/min/1.73 sqM); Potassium 3.6 mmol/L (3.5-5.1); Sodium 132 mmol/L (137-145)
[2016-12-28 08:19] LABS: Anion Gap 4 mmol/L
[2016-12-28 08:20] LABS: Chloride 70 mmol/L (98-107)
[2016-12-28 08:21] LABS: Carbon Dioxide 58 mmol/L (22-30)
[2016-12-28] MEDS: APIXABAN 5 MG TAB PO SCH ×2 (08:53→21:33)
[2016-12-28] MEDS: methylPREDNISolone SOD SUCCI 40 MG/ML 1 ML VIAL IV SCH ×2 (08:53→17:20)
[2016-12-28] MEDS: guaiFENesin 600 MG TABLET.ER PO SCH ×2 (08:53→21:32)
[2016-12-28] MEDS: FAMOTIDINE 20 MG TAB PO SCH (08:53)
[2016-12-28] MEDS: ESCITALOPRAM 10 MG TAB PO SCH (08:53)
[2016-12-28] MEDS: CLOPIDOGREL 75 MG TAB PO SCH (08:54)
[2016-12-28] MEDS: acetaZOLAMIDE 250 MG TAB PO SCH ×2 (08:54→21:33)
[2016-12-28] MEDS: METOPROLOL TARTRATE 50 MG TAB PO SCH ×3 (08:54→21:33)
[2016-12-28] MEDS: FLUCONAZOLE 100 MG TAB PO SCH (08:54)
[2016-12-28] MEDS: DILTIAZEM ORAL 30 MG TAB PO SCH ×3 (08:54→21:33)
[2016-12-28] MEDS: AMOXIC-POT CLAV 500-125 MG 1 EACH TAB PO SCH ×2 (08:54→21:33)
[2016-12-28] MEDS: ALPRAZolam 0.25 MG TAB PO SCH (09:09)
[2016-12-28] MEDS ORDERED: MELATONIN 3 MG TABLET PO PRN (10:12)
--- NOTE | 2016-12-28 10:22 | P.PN ---
Progress Note - Text Interval history: The patient was seen for psychiatric follow-up. She reports that she has been tired ,confused ,feeling "Terrible I do not know if it is daytime or night ",denies any suicidal or homicidal ideation ,no psychotic features ,endorses sedation and tiredness due to psychotropic medications Mental status exam: The patient looked sleepy and tired speech is non spontaneous but fluent non pressured. . she is reporting no suicidal ideation intent or plan She is endorsing no specific delusion she is endorsing no auditory or visual hallucinations. Insight and judgment limited. Plan:Discontinue Xanax ,recommend ,if possible ,to taper her prednisone to minimize her anxiety ,discontinue Desyrel ,using Melatonin PRN for insomnia , continue Lexapro 10 mg daily for depression and anxiety ,will continue to follow -up,if medically cleared ,please refer to outpatient behavior medicine [facility]
[2016-12-28 11:43] LABS: Glucose,Whole Blood 203 mg/dL (75-99)
--- NOTE | 2016-12-28 14:48 | P.PN ---
Subjective Principal diagnosis: Acute exacerbation of COPD and congestive heart failure secondary to LV dysfunction 61-year-old female patient with advanced oxygen-dependent COPD, congestion heart failure with ejection fraction of 30-35% and chronic atrial fibrillation who was readmitted to the hospital following 24 hours of being discharged. Noted the patient was in the hospital between 12/14/2016 and 12/21/2016 and during the earlier hospitalization the patient was treated for an acute COPD exacerbation and CHF. She also developed extensive oropharyngeal thrush for which she was placed on Diflucan. Note that the patient's recovery was slow during her earlier hospitalization. During this catheterization the patient developed an acute kidney injury from aggressive diuresis and prerenal effect of diuretics. The patient was given IV fluids and her renal function stabilized and normalized. She had cushingoid features related to chronic and recurrent steroid use. She has multiple other comorbidities as will be discussed earlier. Following her discharge from the hospital, the patient continued to be doing poorly. She was unable to move around or perform activities of daily life. She continued to have increased cough and chest congestion and she is unable to bring up any sputum. No fever or chills. No chest pain. She has developed increased swelling in the lower extremities. She came into the emergency department and yet again she was found to be in atrial fibrillation with rapid ventricular response. She was placed on a Cardizem drip for rate control. She has been on long-term anticoagulation with Eliquis and she had been completing a course of Augmentin and Diflucan and a prednisone burst taper. Her maintenance stop the medication including combination of Dulera and Spiriva. She has been doing poorly and she has been unable to perform activities of day to day life. Her baseline FEV1 of 30% On 12/24/2016, the patient is slightly improved compared to yesterday. She is responding to the diuresis however this is small diuresis and the patient's legs remain quite swollen and the patient will be started on a combination of Lasix and Zaroxolyn will be added to improve her diuresis. She is on bronchodilators pH is on systemic steroids. She is also completing course of Augmentin and Diflucan. She has a congested cough. On 12/25/2016, patient is responding well to treatment but she continues to cough and wheeze. Continues to have significant wheezing on physical examination today. Hence she is not quite ready for discharge planning. On 12/26/2016, patient is feeling slightly improved, but again continues to have intermittent cough and wheezing, feels generally weak, not quite ready for discharge at this point. Looking at her labs, her bicarb is 60, hence the patient is most likely a significant CO2 retainer, and I will arrange for ABG to be done. If we determined that her pCO2 is quite high, potentially may consider patient for BiPAP at home. In the meantime I will discontinue her Lasix, and place her on Diamox instead. The chest x-ray is showing no evidence of pulmonary edema at this point. I have also discontinued Zaroxolyn, and in the meantime we'll continue to monitor electrolytes and renal profile. Reevaluated today on 12/27/2016, clinically the patient is about the same, however her labs are significantly improved. Her severe primary metabolic alkalosis seems to be correcting quite nicely by holding the diuretics and keeping her on Diamox only. ABG from yesterday showed a pO2 of 77 pCO2 of 79 pH of 7.48. Clearly the primary process here is a metabolic alkalosis with respiratory compensation. Hence cutting down the diuretics hydrating the patient's slowly, switch diuretics to Diamox if diuresis is necessary. Would clearly continue to correct her metabolic alkalosis, and the patient should be feeling much better, and her pCO2 will come down nicely. Her bicarb would also correct nicely. Patient was reevaluated today on 12/28/2016, she feels generally weak, tired, poor appetite, does not have any energy or stamina. However overall the patient feels better compared to how she felt over the last few days. Labs were reviewed, hemoglobin is 10.2, bicarb remains elevated at 58, BUN is 40 creatinine is 0.80 Objective - Vital Signs Vital signs: Vital Signs Temp 97.5 F L 12/28/16 11:55 Pulse 80 12/28/16 13:15 Resp 20 12/28/16 11:57 BP 115/61 12/28/16 11:55 Pulse Ox 97 12/28/16 11:55 Intake & Output 12/27/16 12/28/16 12/28/16 18:59 06:59 18:59 Intake Total 700 440 Output Total 3260 1650 200 Balance -2560 -1650 240 Weight 64.5 kg Intake: Oral 700 440 Output: Urine 3260 1650 200 Other: Voiding Method Bedside Commode Bedside Commode Bedside Commode # Voids 4 1 - Exam Physical examination revealed a 59-year-old female awake, in no form of respiratory distress. HEENT: [Head is atraumatic, normocephalic. Pupils equal, round. Neck is supple. There is elevated jugular venous pressure.] HEART EXAMINATION: Heart S1 and S2 irregular irregular CHEST EXAMINATION: Diminished breath sounds at the bases with some wheezing on forced expiratory maneuver. ABDOMEN: [ Soft, nontender. Bowel sounds are heard. No organomegaly noted]. EXTREMITIES:[ 2+ peripheral pulses with 1-2+ evidence of peripheral edema and no calf tenderness noted]. NEUROLOGIC [patient is awake, alert and oriented -3.] . - Labs CBC & Chem 7: 12/28/16 07:10 12/28/16 07:10 Labs: Abnormal Lab Results - Last 24 Hours (Table) 12/27/16 12/27/16 12/28/16 Range/Units 16:48 20:55 06:18 WBC (3.8-10.6) k/uL RBC (3.80-5.40) m/uL Hgb (11.4-16.0) gm/dL Hct (34.0-46.0) % MCV (80.0-100.0) fL MCHC (31.0-37.0) g/dL Sodium (137-145) mmol/L Chloride (98-107) mmol/L Carbon Dioxide (22-30) mmol/L BUN (7-17) mg/dL Glucose (74-99) mg/dL POC Glucose (mg/dL) 201 H 196 H 201 H (75-99) mg/dL 12/28/16 12/28/16 12/28/16 Range/Units 07:10 07:10 11:41 WBC 13.4 H (3.8-10.6) k/uL RBC 3.24 L (3.80-5.40) m/uL Hgb 10.2 L (11.4-16.0) gm/dL Hct 33.0 L (34.0-46.0) % MCV 101.8 H (80.0-100.0) fL MCHC 30.8 L (31.0-37.0) g/dL Sodium 132 L (137-145) mmol/L Chloride 70 L* (98-107) mmol/L Carbon Dioxide 58 H* (22-30) mmol/L BUN 40 H (7-17) mg/dL Glucose 163 H (74-99) mg/dL POC Glucose (mg/dL) 203 H (75-99) mg/dL Assessment and Plan Plan: 1 advanced oxygen-dependent COPD, severe with an FEV1 of 30% of predicted, suspect acute on chronic respiratory failure secondary to hypoxia and hypercapnia. Hence I have recommended ABG to be done today, and if the patient is documented to have significant rise in pCO2 which I expect will be the case, then the patient may be a candidate for BiPAP therapy at home. 2 Re-hospitalization for an acute COPD exacerbation, this is a readmission for this patient was unable to stay at home for more than 24 hours and she had to come back for increased shortness of breath and it's a fibrillation with rapid ventricular response. On 12/24/2016, the patient is still being treated for an acute COPD exacerbation pH is less short of breath. Atrial fibrillation is also improved in terms of the rate control and the patient was taken off the Cardizem drip. On 12/26/2016, patient is slightly better, but not quite ready for any discharge planning at this point. On 12/27/2016, patient's labs are significantly improved. Her bicarb is improving. Renal profile would also improved. And I will continue to hold diuretics except Diamox. The ABG which I ordered yesterday showed clearly a primary metabolic alkalosis process. And by fixing her metabolic alkalosis, I expect her respiratory acidosis to improve significantly. Her respiratory issues seems to be compensatory to her primary metabolic problem. On 12/28/2016, patient continues to improve, but has multiple confusional symptoms 3 CHF with an ejection fraction of 30% of predicted with severe palmar hypertension 4 chronic atrial fibrillation with rapid ventricular response , currently under better rate control and the patient was taken off the Cardizem drip 5 oropharyngeal thrush treated with Diflucan. 6 restless leg syndrome 7 fibromyalgia 8 hyperlipidemia 9 hypertension 10 diffuse degenerative arthritis involving multiple joints 11 hypothyroidism 12 worsening in lower extremity edema 13 impaired performance and functional status secondary to above-mentioned comorbidities. Recommendation: Hold diuretics including Lasix and Zaroxolyn for now, continue Diamox only, watch closely her electrolytes and renal profile, we'll continue to follow. Monitor electrolytes and monitor renal profile on a daily basis. Time with Patient: Less than 30
--- NOTE | 2016-12-28 15:35 | P.PN ---
Subjective Principal diagnosis: Shortness of breath This is a 61-year-old female with known history of severe COPD, peripheral artery disease, chronic persistent atrial fibrillation, who was recently discharged from the hospital and readmitted with progressive dyspnea. IV Lasix and Zaroxolyn were discontinued yesterday and she was initiated on Diamox. She does state that she's feeling better overall today. Blood pressure 115/60 with heart rate in the 80s to 90s. Hemoglobin today 10.2, potassium 3.6, chloride 70, CO2 58, BUN 40, creatinine 0.8 Objective - Vital Signs Vital signs: Vital Signs Temp 97.5 F L 12/28/16 11:55 Pulse 80 12/28/16 13:15 Resp 20 12/28/16 11:57 BP 115/61 12/28/16 11:55 Pulse Ox 97 12/28/16 11:55 Intake & Output 12/27/16 12/28/16 12/28/16 18:59 06:59 18:59 Intake Total 700 440 Output Total 3260 1650 200 Balance -2560 -1650 240 Weight 64.5 kg Intake: Oral 700 440 Output: Urine 3260 1650 200 Other: Voiding Method Bedside Commode Bedside Commode Bedside Commode # Voids 4 1 - Exam PHYSICAL EXAMINATION: HEENT: [Head is atraumatic, normocephalic. Pupils equal, round. Neck is supple. There is elevated jugular venous pressure.] HEART EXAMINATION: Heart S1 and S2 irregular irregular CHEST EXAMINATION: Lungs reveal scattered wheezing throughout. Improvement in bilateral air entry noted ABDOMEN: [ Soft, nontender. Bowel sounds are heard. No organomegaly noted]. EXTREMITIES:[ 2+ peripheral pulses with trace to 1+ evidence of peripheral edema and no calf tenderness noted]. Bilateral Virgilio wraps in place NEUROLOGIC [patient is awake, alert and oriented -3.] . - Labs CBC & Chem 7: 12/28/16 07:10 12/28/16 07:10 Labs: Abnormal Lab Results - Last 24 Hours (Table) 12/27/16 12/27/16 12/28/16 Range/Units 16:48 20:55 06:18 WBC (3.8-10.6) k/uL RBC (3.80-5.40) m/uL Hgb (11.4-16.0) gm/dL Hct (34.0-46.0) % MCV (80.0-100.0) fL MCHC (31.0-37.0) g/dL Sodium (137-145) mmol/L Chloride (98-107) mmol/L Carbon Dioxide (22-30) mmol/L BUN (7-17) mg/dL Glucose (74-99) mg/dL POC Glucose (mg/dL) 201 H 196 H 201 H (75-99) mg/dL 12/28/16 12/28/16 12/28/16 Range/Units 07:10 07:10 11:41 WBC 13.4 H (3.8-10.6) k/uL RBC 3.24 L (3.80-5.40) m/uL Hgb 10.2 L (11.4-16.0) gm/dL Hct 33.0 L (34.0-46.0) % MCV 101.8 H (80.0-100.0) fL MCHC 30.8 L (31.0-37.0) g/dL Sodium 132 L (137-145) mmol/L Chloride 70 L* (98-107) mmol/L Carbon Dioxide 58 H* (22-30) mmol/L BUN 40 H (7-17) mg/dL Glucose 163 H (74-99) mg/dL POC Glucose (mg/dL) 203 H (75-99) mg/dL Assessment and Plan (1) Acute exacerbation of chronic obstructive airways disease Status: Acute (2) CAD (coronary artery disease) Status: Acute (3) Chronic atrial fibrillation Status: Acute (4) EtOH dependence Status: Acute (5) Hypothyroid Status: Acute (6) NICM (nonischemic cardiomyopathy) Status: Acute (7) Nicotine dependence Status: Acute (8) PAD (peripheral artery disease) Status: Acute Plan: From cardiology's perspective, we'll continue the patient on her current medications. Overall prognosis is guarded. DNP note has been reviewed, I agree with a documented findings and plan of care. Patient was seen and examined.
[2016-12-28 16:41] LABS: Glucose,Whole Blood 112 mg/dL (75-99)
[2016-12-28 21:15] LABS: Glucose,Whole Blood 199 mg/dL (75-99)
[2016-12-28] MEDS: ASPIRIN 81 MG CHEW PO SCH (21:33)
[2016-12-28] MEDS: ATORVASTATIN 80 MG TAB PO SCH (21:33)
[2016-12-28 21:48] VITALS: TEMP 97.9
--- NOTE | 2016-12-28 23:42 | PN ---
DATE OF SERVICE: 12/28/2016 PRESENTING COMPLAINT: Tired. INTERVAL HISTORY: This patient presented with severe COPD exacerbation, atrial flutter/fibrillation, CHF exacerbation. Patient also was severely alkalotic with volume contraction; hence diuretics have been held. Patient ate a little bit. A bit more awake. Tired. Review of systems done for constitutional, cardiovascular, GI, pulmonary; relevant findings as above. Current medications are reviewed that include Augmentin and IV Solu-Medrol. On examination, temperature 98.1, pulse 95, respiration 18, blood pressure 119/73, pulse ox 97% on 2 L. GENERAL APPEARANCE: Lying in bed, awake. EYES: Pupils equal. Conjunctivae normal. NECK: JVD not raised. Mass not palpable. RESPIRATORY: Effort normal. LUNGS: Diminished breath sounds. CARDIOVASCULAR: Heart sounds ( ) minimal edema. ABDOMEN: Soft, nontender. Liver and spleen not palpable. PSYCHIATRY: Awake. Answering simple questions. INVESTIGATIONS: White count 13.4, hemoglobin 10.2, chloride 70, bicarb 58. ASSESSMENT: 1. Atrial flutter/fibrillation with rapid ventricular response on presentation with multiple ectopics. Patient had EP studies before with ablation in the past. 2. Acute on chronic congestive heart failure exacerbation from systolic dysfunction; ejection fraction 30% to 35%, with underlying coronary artery disease, now compensated. 3. Acute chronic obstructive pulmonary disease exacerbation with end-stage lung condition, improved. 4. Restless leg syndrome. 5. Fibromyalgia. 6. Hyperlipidemia. 7. Essential hypertension. 8. Primary osteoarthritis in multiple joints bilaterally. 9. Chronic hypoxic respiratory failure from underlying chronic obstructive pulmonary disease, on 2 liters of oxygen. 10. Hypothyroidism. 11. Severe secondary pulmonary hypertension secondary to chronic obstructive pulmonary disease. 12. Severe tricuspid regurgitation, non-rheumatic. 13. Depression not otherwise specified. 14. Hyponatremia, normal osmolar. 15. Metabolic alkalosis persisting ( ) volume contraction. Patient has been on steroids. PLAN: Given the ( ) metabolic alkalosis ( ) could be from steroids and from volume contraction, will switch the patient over to oral prednisone and stop the IV Solu-Medrol. Will follow.
[2016-12-29 06:41] LABS: Glucose,Whole Blood 145 mg/dL (75-99)
[2016-12-29] MEDS: INSULIN LISPRO (humaLOG) 300 UNIT/3 ML VIAL SQ SCH ×2 (06:47→12:16)
[2016-12-29] MEDS: LEVOTHYROXINE 125 MCG TAB PO SCH (06:47)
[2016-12-29] MEDS: hydrALAZINE HCL 25 MG TAB PO SCH ×2 (06:47→12:15)
[2016-12-29 06:53] LABS: Blood Urea Nitrogen 36 mg/dL (7-17); Calcium 8.8 mg/dL (8.4-10.2); Glucose 135 mg/dL (74-99); Non-African American GFR(MDRD) >60 (>60 ml/min/1.73 sqM); Potassium 3.6 mmol/L (3.5-5.1); Sodium 129 mmol/L (137-145)
[2016-12-29 06:59] LABS: Anion Gap 8 mmol/L
[2016-12-29 07:00] LABS: Carbon Dioxide 44 mmol/L (22-30); Chloride 77 mmol/L (98-107)
[2016-12-29] MEDS: BUDESONIDE 0.5 MG/2 ML NEBU INHALATION SCH (08:31)
[2016-12-29] MEDS: FORMOTEROL FUMARATE 20 MCG/2 ML NEBU INHALATION SCH (08:31)
[2016-12-29] MEDS: IPRATROPIUM-ALBUTEROL 3 ML NEB INHALATION PRN ×2 (08:31→11:57)
[2016-12-29] MEDS ORDERED: predniSONE 10 MG TAB PO SCH (09:00)
[2016-12-29] MEDS: APIXABAN 5 MG TAB PO SCH (09:13)
[2016-12-29] MEDS: DILTIAZEM ORAL 30 MG TAB PO SCH ×2 (09:13→15:36)
[2016-12-29] MEDS: acetaZOLAMIDE 250 MG TAB PO SCH (09:13)
[2016-12-29] MEDS: guaiFENesin 600 MG TABLET.ER PO SCH (09:13)
[2016-12-29] MEDS: AMOXIC-POT CLAV 500-125 MG 1 EACH TAB PO SCH (09:14)
[2016-12-29] MEDS: FAMOTIDINE 20 MG TAB PO SCH (09:14)
[2016-12-29] MEDS: METOPROLOL TARTRATE 50 MG TAB PO SCH ×2 (09:14→15:36)
[2016-12-29] MEDS: ESCITALOPRAM 10 MG TAB PO SCH (09:14)
[2016-12-29] MEDS: CLOPIDOGREL 75 MG TAB PO SCH (09:15)
[2016-12-29 11:45] LABS: Glucose,Whole Blood 143 mg/dL (75-99)
[2016-12-29 12:06] VITALS: BMI 24.0
--- NOTE | 2016-12-29 12:51 | P.PN ---
Subjective Principal diagnosis: Shortness of breath This is a 61-year-old female with known history of severe COPD, peripheral artery disease, chronic persistent atrial fibrillation, who was recently discharged from the hospital and readmitted with progressive dyspnea. Patient is currently on Diamox. States she is feeling better today, peripheral edema significantly improved. Blood pressure 132/68 with a heart rate in the 80s to 90s. Sodium 129, potassium 3.6, chloride 77, CO2 44, BUN 36 , creatinine 0.7, magnesium level I.7. Objective - Vital Signs Vital signs: Vital Signs Temp 97.9 F 12/29/16 08:00 Pulse 92 12/29/16 12:10 Resp 20 12/29/16 08:00 BP 132/69 12/29/16 08:00 Pulse Ox 90 L 12/29/16 08:00 Intake & Output 12/28/16 12/29/16 12/29/16 18:59 06:59 18:59 Intake Total 780 180 Output Total 800 750 Balance -20 -750 180 Weight 64.5 kg 63.6 kg 63.6 kg Intake: Oral 780 180 Output: Urine 800 750 Other: Voiding Method Bedside Commode Toilet Bedside Commode # Voids 1 1 2 - Exam PHYSICAL EXAMINATION: HEENT: [Head is atraumatic, normocephalic. Pupils equal, round. Neck is supple. There is elevated jugular venous pressure.] HEART EXAMINATION: Heart S1 and S2 irregular irregular CHEST EXAMINATION: Lungs reveal scattered wheezing throughout. Improvement in bilateral air entry noted ABDOMEN: [ Soft, nontender. Bowel sounds are heard. No organomegaly noted]. EXTREMITIES:[ 2+ peripheral pulses with trace evidence of peripheral edema and no calf tenderness noted]. Bilateral Virgilio wraps in place NEUROLOGIC [patient is awake, alert and oriented -3.] . - Labs CBC & Chem 7: 12/28/16 07:10 12/29/16 05:45 Labs: Abnormal Lab Results - Last 24 Hours (Table) 12/28/16 12/28/16 12/29/16 Range/Units 16:39 20:46 05:45 Sodium 129 L (137-145) mmol/L Chloride 77 L* (98-107) mmol/L Carbon Dioxide 44 H* (22-30) mmol/L BUN 36 H (7-17) mg/dL Glucose 135 H (74-99) mg/dL POC Glucose (mg/dL) 112 H 199 H (75-99) mg/dL 12/29/16 12/29/16 Range/Units 06:39 11:40 Sodium (137-145) mmol/L Chloride (98-107) mmol/L Carbon Dioxide (22-30) mmol/L BUN (7-17) mg/dL Glucose (74-99) mg/dL POC Glucose (mg/dL) 145 H 143 H (75-99) mg/dL Assessment and Plan (1) Acute exacerbation of chronic obstructive airways disease Status: Acute (2) CAD (coronary artery disease) Status: Acute (3) Chronic atrial fibrillation Status: Acute (4) EtOH dependence Status: Acute (5) Hypothyroid Status: Acute (6) NICM (nonischemic cardiomyopathy) Status: Acute (7) Nicotine dependence Status: Acute (8) PAD (peripheral artery disease) Status: Acute Plan: From cardiology's perspective, we'll continue the patient on her current medications. We will follow this patient with you now on an as-needed basis only, please don't hesitate to call with any questions. DNP note has been reviewed, I agree with a documented findings and plan of care. Patient was seen and examined.
--- NOTE | 2016-12-29 13:06 | P.PN ---
Subjective 61-year-old female patient with advanced oxygen-dependent COPD, congestion heart failure with ejection fraction of 30-35% and chronic atrial fibrillation who was readmitted to the hospital following 24 hours of being discharged. Noted the patient was in the hospital between 12/14/2016 and 12/21/2016 and during the earlier hospitalization the patient was treated for an acute COPD exacerbation and CHF. She also developed extensive oropharyngeal thrush for which she was placed on Diflucan. Note that the patient's recovery was slow during her earlier hospitalization. During this catheterization the patient developed an acute kidney injury from aggressive diuresis and prerenal effect of diuretics. The patient was given IV fluids and her renal function stabilized and normalized. She had cushingoid features related to chronic and recurrent steroid use. She has multiple other comorbidities as will be discussed earlier. Following her discharge from the hospital, the patient continued to be doing poorly. She was unable to move around or perform activities of daily life. She continued to have increased cough and chest congestion and she is unable to bring up any sputum. No fever or chills. No chest pain. She has developed increased swelling in the lower extremities. She came into the emergency department and yet again she was found to be in atrial fibrillation with rapid ventricular response. She was placed on a Cardizem drip for rate control. She has been on long-term anticoagulation with Eliquis and she had been completing a course of Augmentin and Diflucan and a prednisone burst taper. Her maintenance stop the medication including combination of Dulera and Spiriva. She has been doing poorly and she has been unable to perform activities of day to day life. Her baseline FEV1 of 30% On 12/24/2016, the patient is slightly improved compared to yesterday. She is responding to the diuresis however this is small diuresis and the patient's legs remain quite swollen and the patient will be started on a combination of Lasix and Zaroxolyn will be added to improve her diuresis. She is on bronchodilators pH is on systemic steroids. She is also completing course of Augmentin and Diflucan. She has a congested cough. On 12/25/2016, patient is responding well to treatment but she continues to cough and wheeze. Continues to have significant wheezing on physical examination today. Hence she is not quite ready for discharge planning. On 12/26/2016, patient is feeling slightly improved, but again continues to have intermittent cough and wheezing, feels generally weak, not quite ready for discharge at this point. Looking at her labs, her bicarb is 60, hence the patient is most likely a significant CO2 retainer, and I will arrange for ABG to be done. If we determined that her pCO2 is quite high, potentially may consider patient for BiPAP at home. In the meantime I will discontinue her Lasix, and place her on Diamox instead. The chest x-ray is showing no evidence of pulmonary edema at this point. I have also discontinued Zaroxolyn, and in the meantime we'll continue to monitor electrolytes and renal profile. Reevaluated today on 12/27/2016, clinically the patient is about the same, however her labs are significantly improved. Her severe primary metabolic alkalosis seems to be correcting quite nicely by holding the diuretics and keeping her on Diamox only. ABG from yesterday showed a pO2 of 77 pCO2 of 79 pH of 7.48. Clearly the primary process here is a metabolic alkalosis with respiratory compensation. Hence cutting down the diuretics hydrating the patient's slowly, switch diuretics to Diamox if diuresis is necessary. Would clearly continue to correct her metabolic alkalosis, and the patient should be feeling much better, and her pCO2 will come down nicely. Her bicarb would also correct nicely. Patient was reevaluated today on 12/28/2016, she feels generally weak, tired, poor appetite, does not have any energy or stamina. However overall the patient feels better compared to how she felt over the last few days. Labs were reviewed, hemoglobin is 10.2, bicarb remains elevated at 58, BUN is 40 creatinine is 0.80 The patient is seen again today 12/29/2016 in follow-up on the selective care unit. She is awake and alert in no acute distress. She is getting stronger daily but still not quite back to her baseline. The plan is for transfer to an extended care facility for further inpatient rehabilitation. Her bicarb has improved to 44. She remains on Diamox 250 mg twice a day. Creatinine is stable. Objective - Vital Signs Vital signs: Vital Signs Temp 97.9 F 12/29/16 08:00 Pulse 92 12/29/16 12:10 Resp 20 12/29/16 08:00 BP 132/69 12/29/16 08:00 Pulse Ox 90 L 12/29/16 08:00 Intake & Output 12/28/16 12/29/16 12/29/16 18:59 06:59 18:59 Intake Total 780 180 Output Total 800 750 Balance -20 -750 180 Weight 64.5 kg 63.6 kg 63.6 kg Intake: Oral 780 180 Output: Urine 800 750 Other: Voiding Method Bedside Commode Toilet Bedside Commode # Voids 1 1 2 - Exam GENERAL EXAM: Alert, fairly comfortable in no apparent distress. HEAD: Normocephalic. EYES: Normal reaction of pupils, equal size. NOSE: Clear with pink turbinates. THROAT: There is crowding of the posterior pharynx. No erythema or exudates. NECK: No masses, no JVD. CHEST: No chest wall deformity. LUNGS: Equal air entry with faint end expiratory wheeze. Diminished. CVS: S1 and S2 normal irregular rhythm. ABDOMEN: No hepatosplenomegaly, normal bowel sounds, no guarding or rigidity. Extremities: There is trace peripheral edema. No clubbing, no cyanosis. Peripheral pulses are intact. - Labs CBC & Chem 7: 12/28/16 07:10 12/29/16 05:45 Labs: Abnormal Lab Results - Last 24 Hours (Table) 12/28/16 12/28/16 12/29/16 Range/Units 16:39 20:46 05:45 Sodium 129 L (137-145) mmol/L Chloride 77 L* (98-107) mmol/L Carbon Dioxide 44 H* (22-30) mmol/L BUN 36 H (7-17) mg/dL Glucose 135 H (74-99) mg/dL POC Glucose (mg/dL) 112 H 199 H (75-99) mg/dL 12/29/16 12/29/16 Range/Units 06:39 11:40 Sodium (137-145) mmol/L Chloride (98-107) mmol/L Carbon Dioxide (22-30) mmol/L BUN (7-17) mg/dL Glucose (74-99) mg/dL POC Glucose (mg/dL) 145 H 143 H (75-99) mg/dL Assessment and Plan Plan: Impression: 1 advanced oxygen-dependent COPD, severe with an FEV1 of 30% of predicted, suspect acute on chronic respiratory failure secondary to hypoxia and hypercapnia. Hence I have recommended ABG to be done today, and if the patient is documented to have significant rise in pCO2 which I expect will be the case, then the patient may be a candidate for BiPAP therapy at home. 2 Re-hospitalization for an acute COPD exacerbation, this is a readmission for this patient was unable to stay at home for more than 24 hours and she had to come back for increased shortness of breath and it's a fibrillation with rapid ventricular response. 3 CHF with an ejection fraction of 30% of predicted with severe palmar hypertension 4 chronic atrial fibrillation with rapid ventricular response , currently under better rate control and the patient was taken off the Cardizem drip 5 oropharyngeal thrush treated with Diflucan. 6 restless leg syndrome 7 fibromyalgia 8 hyperlipidemia 9 hypertension 10 diffuse degenerative arthritis involving multiple joints 11 hypothyroidism 12 worsening in lower extremity edema 13 impaired performance and functional status secondary to above-mentioned comorbidities. Plan: The patient was seen and evaluated by Dr. Gonzalez. Her diuretics remain on hold. Diamox continues. Her bicarb has improved. She has no specific complaints today. The plan is for transfer to an extended care facility for further inpatient rehabilitation.
[2016-12-29 13:19] VITALS: RESP 19
--- NOTE | 2016-12-29 15:20 | DS ---
DATE OF ADMISSION: 12/23/2016 DATE OF DISCHARGE: 12/29/2016 FINAL DIAGNOSES: 1. Atrial flutter/fibrillation with rapid ventricular response on presentation with multiple ectopics. Patient has had EP studies and ablation in the past. 2. Acute on chronic congestive heart failure exacerbation from systolic dysfunction; ejection fraction 30% to 35%, with underlying coronary artery disease, now compensated. 3. Acute chronic obstructive pulmonary disease exacerbation with end-stage lung condition, improved. 4. Restless leg syndrome. 5. Fibromyalgia. 6. Hyperlipidemia. 7. Essential hypertension. 8. Primary osteoarthritis in multiple joints bilaterally. 9. Chronic hypoxic respiratory failure with underlying chronic obstructive pulmonary disease, on 2 liters oxygen. 10. Hypothyroidism. 11. Severe secondary pulmonary hypertension secondary to chronic obstructive pulmonary disease. 12. Severe tricuspid regurgitation, non-rheumatic. 13. Depression not otherwise specified. 14. Hyponatremia, normal osmolar. 15. Metabolic alkalosis secondary to volume contraction and patient being on steroids. CONSULTATIONS: 1. Dr. Hogan from Cardiology. 2. Dr. Gonzalez from Pulmonary. 3. Dr. Whitley from Psychiatry. HOSPITAL COURSE: This is a patient with advanced COPD. She presented with COPD exacerbation, atrial flutter/fibrillation, uncontrolled, with element of CHF. Patient became severely alkalotic and had to be put on Diamox. Diuretics were held back. Patient's heart rate was better controlled at time of discharge. Patient rather weak and tired. Overall prognosis is guarded. On exam, lungs have decreased breath sounds. CARDIOVASCULAR: First and second sounds normal. PSYCH: Answering questions. DISCHARGE MEDICATIONS: 1. Synthroid 125 mcg p.o. daily. 2. Lopressor 50 mg p.o. t.i.d. 3. Xopenex HFA 2 puffs q.6 p.r.n. 4. Eliquis 5 mg p.o. b.i.d. 5. Hydralazine 25 mg p.o. t.i.d. 6. Lipitor 80 mg at bedtime. 7. Plavix 75 mg p.o. daily. 8. Aspirin 81 mg p.o. at bedtime. 9. Pepcid 20 mg p.o. daily. 10. DuoNeb q.i.d. 11. Melatonin 5 mg p.o. at bedtime p.r.n. 12. Cardizem 30 mg p.o. t.i.d. 13. Pulmicort 0.5 mg b.i.d. 14. Lexapro 10 mg p.o. daily. 15. Perforomist 20 mcg b.i.d. 16. Lasix 40 mg p.o. Sunday, Sunday and Sunday. 17. [place] 5 one tablet q.6 p.r.n. 18. DuoNeb q.4 p.r.n. 19. Ativan 0.5 q.8 p.r.n. 20. Diamox 250 mg p.o. b.i.d.; 20 tablets. 21. Prednisone taper. DISPOSITION: Desi. Follow up with Dr. Lloyd after discharge from [facility]. Follow up with Dr. De Anda at [facility]. Follow up with software configuration manager in one week. Follow up with auto service dispatcher in one week.
[2016-12-29 16:18] VITALS: BP 133/74; PULSE 95
== END 2016-12-29 16:27 | DRG 291 ==
LOC: EC 00:11 → 6SEL 02:49
PROVIDERS: ADMIT Hospitalist; ATTEND Hospitalist
DX: I11.0 Hypertensive heart disease with heart failure (principal); J96.21 Acute and chronic respiratory failure with hypoxia; I47.2 Ventricular tachycardia; E87.3 Alkalosis; I48.1 Persistent atrial fibrillation; I42.9 Cardiomyopathy, unspecified; G25.81 Restless legs syndrome; I48.2 Chronic atrial fibrillation; J96.22 Acute and chronic respiratory failure with hypercapnia; J44.1 Chronic obstructive pulmonary disease with (acute) exacerbation; E87.1 Hypo-osmolality and hyponatremia; I48.92 Unspecified atrial flutter; I50.23 Acute on chronic systolic (congestive) heart failure; I27.2 Other secondary pulmonary hypertension; I07.1 Rheumatic tricuspid insufficiency; E03.9 Hypothyroidism, unspecified; E78.5 Hyperlipidemia, unspecified; F10.20 Alcohol dependence, uncomplicated; F17.200 Nicotine dependence, unspecified, uncomplicated; F32.9 Major depressive disorder, single episode, unspecified; F40.240 Claustrophobia; I25.10 Atherosclerotic heart disease of native coronary artery without angina pectoris; I25.2 Old myocardial infarction; I49.3 Ventricular premature depolarization; I73.9 Peripheral vascular disease, unspecified; K21.9 Gastro-esophageal reflux disease without esophagitis; M15.9 Polyosteoarthritis, unspecified; M79.7 Fibromyalgia; Z66 Do not resuscitate; Z79.01 Long term (current) use of anticoagulants; Z79.02 Long term (current) use of antithrombotics/antiplatelets; Z82.49 Family history of ischemic heart disease and other diseases of the circulatory system; Z88.1 Allergy status to other antibiotic agents; Z95.820 Peripheral vascular angioplasty status with implants and grafts; Z99.81 Dependence on supplemental oxygen; Z79.899 Other long term (current) drug therapy
CPT/HCPCS: 36415; 36600; 71020; 80048; 80053; 82550; 82553; 82805; 83735; 83880; 83930; 84484; 85025; 85027; 85610; 85730; 93005; 94640; 94760; 96365; 96366; 96375; 99285

== ENCOUNTER 2017-01-15 22:28 | Inpatient (IN) | payer MEDICARE, OTHER ==
[2017-01-15] MEDS ORDERED: PIPERACILLIN-TAZOBACTAM 3.375 GM in DEXTROSE/WATER 1 50ML.BAG IVPB STA (22:51)
[2017-01-15] MEDS ORDERED: IPRATROPIUM-ALBUTEROL 3 ML NEB INHALATION STA (22:51)
[2017-01-15] MEDS ORDERED: methylPREDNISolone SOD SUCCI 125 MG/2 ML VIAL IV STA (22:51)
[2017-01-15] MEDS ORDERED: VANCOMYCIN 1,000 MG in SODIUM CHLORIDE 0.9% 250 ML IVPB STA (22:51)
[2017-01-15] MEDS ORDERED: FUROSEMIDE 10 MG/ML 4 ML VIAL IV STA (22:54)
[2017-01-15] MEDS ORDERED: NITROGLYCERIN OINT 1 INCH/GM PACKET TOPICAL STA (22:54)
[2017-01-15] MEDS ORDERED: ASPIRIN 81 MG CHEW PO STA (22:54)
[2017-01-15 23:10] LABS: ALT 44 U/L (9-52); AST 44 U/L (14-36); Alkaline Phosphatase 71 U/L (38-126); Anion Gap 9 mmol/L; Blood Urea Nitrogen 25 mg/dL (7-17); Calcium 8.2 mg/dL (8.4-10.2); Chloride 92 mmol/L (98-107); Glucose 111 mg/dL (74-99); INR 1.3 (<1.1); Non-African American GFR(MDRD) >60 (>60 ml/min/1.73 sqM); Partial Thromboplastin Time 24.4 sec (22.0-30.0); Prothrombin Time 12.8 sec (9.0-12.0); Sodium 141 mmol/L (137-145); Total Protein 6.5 g/dL (6.3-8.2)
[2017-01-15 23:18] LABS: Anisocytosis Slight; Aty Lym Flag Moderate; CH 31.8; CHCM 30.6; HCT 29.6 % (34.0-46.0); HDW 4.03; Hypochromasia Marked; MCHC 30.4 g/dL (31.0-37.0); MCV 105.4 fL (80.0-100.0); Macrocytosis Marked; Mean Platelet Volume 8.1; Poikilocytosis Moderate; RBC 2.81 m/uL (3.80-5.40); RDW 19.1 % (11.5-15.5); WBC (Perox) 5.54
[2017-01-15 23:27] LABS: Creatine Kinase MB 2.3 ng/mL (0.0-2.4)
[2017-01-15 23:40] LABS: Troponin I 0.037 ng/mL (0.000-0.034)
[2017-01-15 23:41] LABS: Carbon Dioxide 40 mmol/L (22-30)
--- NOTE | 2017-01-15 23:51 | XR ---
EXAMINATION TYPE: XR chest 2V DATE OF EXAM: 01/15/2017 11:46 PM COMPARISON: 12/26/2016 HISTORY: Difficulty breathing TECHNIQUE: Frontal and lateral views of the chest are obtained. FINDINGS: Heart is enlarged. There is pulmonary vascular congestion. There is blunting of costophren ic angles and more on the right side. Thoracic aorta is atheromatous. There are chest leads. IMPRESSION: Cardiomegaly. There is new congestive heart failure and pleural effusions compared to la st exam. Right lower lobe pneumonia cannot be excluded.
[2017-01-16 00:02] LABS: Add Differential Manual Differential
[2017-01-16 00:09] LABS: Metamyelocytes % 0.5 %; Nucleated Red Blood Cells 1 /100 WBC (0-0); Total Cells Counted 200
[2017-01-16 00:10] LABS: Manual Review Performed; WBC 5.3 k/uL (3.8-10.6)
[2017-01-16 00:11] LABS: Polychromasia Present
--- NOTE | 2017-01-16 00:11 | ED ---
SOB HPI - General Chief Complaint: Shortness of Breath Stated Complaint: CALIN Time Seen by Provider: 01/15/17 22:46 Source: EMS Mode of arrival: EMS - History of Present Illness Initial Comments: This 61-year-old white female presents with cold in breathing. She states that she is having this for the last 3 days. She's had a cough with greenish production. She denies any actual chest pain. She is unsure she's had a fever. She does complain of some lower extremity edema. She denies any history of DVT or PE. She does present from the [facility] via EMS and receives a breathing treatment in route with some relief. A call was received from Dr. Camp prior to arrival and he relates that he thinks she may have a degree of COPD and congestive heart failure. No other complaints or modifying factors. - Related Data Home Medications Medication Instructions Recorded Confirmed Levothyroxine Sodium [Synthroid] 125 mcg PO DAILY@0600 05/14/15 01/15/17 Metoprolol Tartrate [Lopressor] 50 mg PO TID@0800,1200,1700 08/02/15 01/15/17 Levalbuterol Tartrate [Xopenex Hfa 2 puff INHALATION RT-Q6H PRN 01/21/16 Inhaler] hydrALAZINE HCL [Apresoline] 25 mg PO TID@0800,1200,1700 03/24/16 01/15/17 Aspirin EC [Ecotrin Low Dose] 81 mg PO HS@209912/14/16 01/15/17 Famotidine [Pepcid] 20 mg PO DAILY@0800 12/14/16 01/15/17 Ipratropium-Albuterol Nebulize 3 ml INHALATION RT-QID 12/14/16 01/15/17 [Duoneb 0.5 mg-3 mg/3 ml Soln] Melatonin 5 mg PO HS PRN 12/14/16 01/15/17 Amino Acids/Protein Hydrolys 30 ml PO DAILY@0800 01/15/17 01/15/17 [Pro-Stat Supplement] Apixaban [Eliquis] 5 mg PO BID@0800,2100 01/15/17 01/15/17 Atorvastatin [Lipitor] 80 mg PO HS@209901/15/17 01/15/17 Bisacodyl 10 mg RECTAL DAILY PRN 01/15/17 01/15/17 Budesonide [Pulmicort] 0.5 mg INHALATION RT-BID@0800,209901/15/17 01/15/17 Clopidogrel [Plavix] 75 mg PO DAILY@0800 01/15/17 01/15/17 Diltiazem Oral [Cardizem*] 30 mg PO TID@0600,1400,209901/15/17 01/15/17 Escitalopram [Lexapro] 10 mg PO DAILY@0800 01/15/17 01/15/17 Ferrous Sulfate [Feosol] 325 mg PO BID@0800,209901/15/17 01/15/17 Formoterol Fumarate [Perforomist] 20 mcg INHALATION RT-BID@0800,1700 01/15/17 Furosemide [Lasix] 40 mg PO DAILY@0800 01/15/17 01/15/17 Furosemide [Lasix] 40 mg PO ONCE 01/15/17 01/15/17 Magnesium Hydroxide [Milk of 2,400 mg PO DAILY PRN 01/15/17 01/15/17 Magnesia] Na Phos,M-B/Na Phos,Di-Ba [Fleet 133 ml RECTAL ONCE PRN 01/15/17 01/15/17 Adult] Potassium Chloride ER [K-Dur 10] 10 meq PO DAILY@1700 01/15/17 01/15/17 valACYclovir [Valtrex] 500 mg PO BID PRN 01/15/17 01/15/17 Previous Rx's Medication Instructions Recorded HYDROcodone/APAP 5-325MG [Chauncey 1 tab PO Q6HR PRN #30 tab 12/29/16 5-325] Ipratropium-Albuterol Nebulize 3 ml INHALATION RT-Q4H PRN #0 12/29/16 [Duoneb 0.5 mg-3 mg/3 ml Soln] ampul.neb LORazepam [Ativan] 0.5 mg PO Q8H PRN #20 tab 12/29/16 Melatonin 3 mg PO HS PRN #0 tablet 12/29/16 Allergies Allergy/AdvReac Type Severity Reaction Status Date / Time ciprofloxacin HCl Allergy Severe Anaphylaxis Verified 01/15/17 22:59 [From Cipro] budesonide [From Symbicort] AdvReac Rapid Verified 01/15/17 22:59 Heart Rate formoterol fumarate AdvReac Rapid Verified 01/15/17 22:59 [From Symbicort] Heart Rate Review of Systems ROS Statement: Those systems with pertinent positive or pertinent negative responses have been documented in the HPI. ROS Other: All systems not noted in ROS Statement are negative. Past Medical History Past Medical History: Atrial Flutter, Coronary Artery Disease (CAD), Heart Failure, COPD, GERD/Reflux, Hyperlipidemia, Hypertension, Myocardial Infarction (AK), Osteoarthritis (OA), Syncope, Thyroid Disorder Additional Past Medical History / Comment(s): COPD and the patient is on home O2 at 2 L/m nasal cannula and she has a baseline FEV1 of 30% of predicted and she is a nonsmoker, congestion heart failure with an ejection fraction of 30-35 % along with severe pulmonary hypertension and the right ventricle systolic pressure of 60, history of atrial fibrillation/flutter/atrial tachycardia with previous cardiac ablation, fibromyalgia, hyperlipidemia, hypertension, colonic polyps, previous coronary artery disease and reported history of myocardial infarction, hypothyroidism, degenerative arthritis, nonischemiccardio myopathy , and severe peripheral vascular disease. 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 Smoking Status: Former smoker Past Alcohol Use History: Rare Additional Past Alcohol Use History / Comment(s): SMOKED 40 YEARS, 1 1/2-2 PPD, quit in August Past Drug Use History: None Reported - Past Family History Mother Family Medical History: Cancer Father Family Medical History: Coronary Artery Disease (CAD) General Exam - General Exam Comments Initial Comments: GENERAL: The patient is well nourished and well hydrated. VITAL SIGNS: Heart rate, blood pressure, respiratory rate reviewed as recorded in nurse's notes. EYES: Pupils are round and reactive. Extraocular movements are intact. No conjunctival / lid redness or swelling. ENT: No external evidence of injury, swelling, or ecchymosis. Airway is patent. Throat is clear. NECK: Nontender. No swelling or evidence of injury. No subcutaneous emphysema. Trachea is midline. No thyroid mass. HEART: Regular rate and rhythm. Good peripheral pulses. LUNGS/CHEST: There is wheezing noted bilaterally. No ecchymosis, subcutaneous emphysema, or tenderness. ABDOMEN: Abdomen soft without tenderness. No palpable masses or organomegaly. No peritoneal signs. No abdominal wall swelling or ecchymosis. EXTREMITIES: No extremity tenderness. Normal muscle tone and function. No thoracolumbar tenderness. There is mild lower extremity edema bilaterally. NEUROLOGIC: Sensation is grossly intact. Cranial nerve exam reveals face is symmetrical, tongue is midline, speech is clear. SKIN: No abrasions or ecchymosis is noted. No induration or masses noted. PSYCHIATRIC: Alert and oriented. Appropriate behavior and judgment. Course Vital Signs 01/15/17 01/15/17 01/15/17 22:46 23:10 23:29 Temperature 97 F L Pulse Rate 89 91 84 Respiratory 24 Rate Blood Pressure 143/68 O2 Sat by Pulse 98 Oximetry 01/15/17 23:51 Temperature Pulse Rate 85 Respiratory 20 Rate Blood Pressure 144/86 O2 Sat by Pulse 93 L Oximetry Medical Decision Making - Medical Decision Making The patient was seen and examined. All diagnostics were reviewed. EKG shows atrial fibrillation at a heart rate of 89. There is no acute ST-T wave changes identified. The QRS duration is 94 the QTC intervals 450. There is no ST elevation identified. The patient also had a chest x-ray and this shows evidence of new congestive heart failure with the right pleural effusion. The possibility of underlying pneumonia is difficult to exclude per radiology. Laboratory shows anemia, elevated CO2, elevated troponin, and decreased chloride. The patient is receiving antibiotics intravenously, DuoNeb breathing treatments, Solu-Medrol, aspirin and Nitropaste. Case will be discussed with internal medicine and patient be admitted to the hospital for further treatment. It is felt that she certainly does have congestive heart failure and received some Lasix. The possibility of underlying pneumonia or bronchitis certainly is possible as well. Is felt as though she does have exacerbation of COPD as well. It is felt as though she has significant comorbidities and that she is significantly ill. Her pulse ox was only 84% on 2 L initially. It appears that she does have some respiratory failure. Approximately 30 minutes critical care time was utilized in her treatment. - Lab Data Result diagrams: 01/15/17 22:40 01/15/17 22:40 Lab Results 01/15/17 01/15/17 01/15/17 Range/Units 22:40 22:40 22:40 WBC 5.4 (3.8-10.6) k/uL RBC 2.81 L (3.80-5.40) m/uL Hgb 9.0 L (11.4-16.0) gm/dL Hct 29.6 L (34.0-46.0) % MCV 105.4 H (80.0-100.0) fL MCH 32.0 (25.0-35.0) pg MCHC 30.4 L (31.0-37.0) g/dL RDW 19.1 H (11.5-15.5) % Plt Count 291 (150-450) k/uL PT (9.0-12.0) sec INR (<1.1) APTT (22.0-30.0) sec Sodium 141 (137-145) mmol/L Potassium 4.0 (3.5-5.1) mmol/L Chloride 92 L (98-107) mmol/L Carbon Dioxide 40 H* (22-30) mmol/L Anion Gap 9 mmol/L BUN 25 H (7-17) mg/dL Creatinine 0.82 (0.52-1.04) mg/dL Est GFR (MDRD) Af Amer >60 (>60 ml/min/1.73 sqM) Est GFR (MDRD) Non-Af >60 (>60 ml/min/1.73 sqM) Glucose 111 H (74-99) mg/dL Calcium 8.2 L (8.4-10.2) mg/dL Total Bilirubin 1.0 (0.2-1.3) mg/dL AST 44 H (14-36) U/L ALT 44 (9-52) U/L Alkaline Phosphatase 71 (38-126) U/L Total Creatine Kinase 34 (30-135) U/L CK-MB (CK-2) 2.3 (0.0-2.4) ng/mL CK-MB (CK-2) Rel Index 6.8 Troponin I 0.037 H* (0.000-0.034) ng/mL NT-Pro-B Natriuret Pep pg/mL Total Protein 6.5 (6.3-8.2) g/dL Albumin 3.3 L (3.5-5.0) g/dL 01/15/17 01/15/17 Range/Units 22:40 22:40 WBC (3.8-10.6) k/uL RBC (3.80-5.40) m/uL Hgb (11.4-16.0) gm/dL Hct (34.0-46.0) % MCV (80.0-100.0) fL MCH (25.0-35.0) pg MCHC (31.0-37.0) g/dL RDW (11.5-15.5) % Plt Count (150-450) k/uL PT 12.8 H (9.0-12.0) sec INR 1.3 (<1.1) APTT 24.4 (22.0-30.0) sec Sodium (137-145) mmol/L Potassium (3.5-5.1) mmol/L Chloride (98-107) mmol/L Carbon Dioxide (22-30) mmol/L Anion Gap mmol/L BUN (7-17) mg/dL Creatinine (0.52-1.04) mg/dL Est GFR (MDRD) Af Amer (>60 ml/min/1.73 sqM) Est GFR (MDRD) Non-Af (>60 ml/min/1.73 sqM) Glucose (74-99) mg/dL Calcium (8.4-10.2) mg/dL Total Bilirubin (0.2-1.3) mg/dL AST (14-36) U/L ALT (9-52) U/L Alkaline Phosphatase (38-126) U/L Total Creatine Kinase (30-135) U/L CK-MB (CK-2) (0.0-2.4) ng/mL CK-MB (CK-2) Rel Index Troponin I (0.000-0.034) ng/mL NT-Pro-B Natriuret Pep 6240 pg/mL Total Protein (6.3-8.2) g/dL Albumin (3.5-5.0) g/dL Disposition Clinical Impression: Congestive heart failure, Anemia, Chronic atrial fibrillation, Acute bronchitis , Acute exacerbation of chronic obstructive airways disease, Acute respiratory failure, Hypochloremia, Pleural effusion, right, Lower extremity edema, Elevated troponin Disposition: ADMITTED IP TO THIS HOSP Condition: Fair Time of Disposition: 00:10 Decision Date: 01/16/17 Decision Time: 00:10
[2017-01-16] MEDS ORDERED: valACYclovir 500 MG TAB PO PRN (00:15)
[2017-01-16] MEDS ORDERED: MAGNESIUM HYDROXIDE 2,400 MG/10 ML CUP PO PRN (00:15)
[2017-01-16] MEDS ORDERED: NA PHOS,M-B/NA PHOS,DI-BA 133 ML ENEMA RECTAL PRN (00:15)
[2017-01-16] MEDS ORDERED: BISACODYL 10 MG SUPP RECTAL PRN (00:15)
[2017-01-16] MEDS ORDERED: MELATONIN 3 MG TABLET PO PRN (00:15)
[2017-01-16 01:12] VITALS: BMI 25.7
[2017-01-16] MEDS: LORazepam 0.5 MG TAB PO PRN ×2 (01:23→21:56)
[2017-01-16] MEDS: IPRATROPIUM-ALBUTEROL 3 ML NEB INHALATION SCH ×6 (03:04→23:28)
[2017-01-16] MEDS: DILTIAZEM ORAL 30 MG TAB PO SCH ×3 (06:26→21:18)
[2017-01-16] MEDS: LEVOTHYROXINE 125 MCG TAB PO SCH (06:27)
[2017-01-16 07:04] LABS: Troponin I 0.031 ng/mL (0.000-0.034)
[2017-01-16 07:13] LABS: Creatine Kinase MB 2.5 ng/mL (0.0-2.4)
[2017-01-16] MEDS: BUDESONIDE 0.5 MG/2 ML NEBU INHALATION SCH ×2 (07:56→19:43)
[2017-01-16] MEDS: FORMOTEROL FUMARATE 20 MCG/2 ML NEBU INHALATION SCH ×2 (07:56→19:43)
[2017-01-16] MEDS ORDERED: NON-FORMULARY DRUG (Amino Acids/Protein Hydrolys [Pro-Stat Supplement] 30 ML) PO SCH (08:00)
[2017-01-16] MEDS ORDERED: APIXABAN 5 MG TAB PO SCH (08:00)
[2017-01-16] MEDS ORDERED: CLOPIDOGREL 75 MG TAB PO SCH (08:00)
[2017-01-16] MEDS ORDERED: FUROSEMIDE 10 MG/ML 4 ML VIAL IV SCH (08:00)
[2017-01-16] MEDS: methylPREDNISolone SOD SUCCI 125 MG/2 ML VIAL IV SCH ×2 (09:09→12:35)
[2017-01-16] MEDS: ESCITALOPRAM 10 MG TAB PO SCH (10:06)
[2017-01-16] MEDS: FERROUS SULFATE 325 MG TAB PO SCH ×2 (10:07→21:19)
[2017-01-16] MEDS: FAMOTIDINE 20 MG TAB PO SCH (10:07)
[2017-01-16] MEDS: hydrALAZINE HCL 25 MG TAB PO SCH ×3 (10:07→17:54)
[2017-01-16] MEDS: METOPROLOL TARTRATE 50 MG TAB PO SCH ×3 (10:07→17:54)
[2017-01-16] MEDS: NITROGLYCERIN OINT 1 INCH/GM PACKET TOPICAL SCH ×4 (10:07→21:19)
--- NOTE | 2017-01-16 11:29 | US ---
EXAMINATION TYPE: US chest DATE OF EXAM: 01/16/2017 11:06 AM COMPARISON: Correlation radiographs 01/15/2017 CLINICAL HISTORY: 61-year-old female with right pleural effusion. TECHNIQUE: Multiple sonographic images of the posterior lower right hemithorax for assessment of pleu ral effusion. FINDINGS: Moderate-sized right pleural effusion. Right Pleural Effusion fluid pocket: 9.4 cm Right skin surface to fluid distance: 3.3 cm Right side marked for possible thoracentesis outside the dept. Pulmonologists are able to review the images in the patient?s EMR. TECHNOLOGIST NOTES: Right posterior chest scanned. Fluid was seen and marked. IMPRESSIONS: Moderate sized right pleural effusion with markings performed.
[2017-01-16 11:38] LABS: Glucose,Whole Blood 163 mg/dL (75-99)
[2017-01-16] MEDS: INSULIN LISPRO (humaLOG) 300 UNIT/3 ML VIAL SQ SCH ×3 (12:36→21:20)
--- NOTE | 2017-01-16 12:46 | P.CNPUL ---
History of Present Illness Consult date: 01/16/17 Requesting physician: Iglesia Ramos Reason for consult: pleural effusion Chief complaint: Shortness of breath History of present illness: This is a 61-year-old female familiar to my service, patient is known to have history of severe cardiomyopathy and LV dysfunction, chronic congestive heart failure, underlying COPD, patient was last admitted to the hospital on 12/23/2016 , and she was discharged on 12/29/2016 I saw her during her last admission, and she had mostly a picture of congestive heart failure, atrial fibrillation with RVR, chronic congestive heart failure, chronic LV dysfunction with ejection fraction of 30%, history of COPD, fibromyalgia, restless leg syndrome, hypertension, degenerative joint disease, chronic hypoxic and hypercapnic respiratory failure, hypothyroidism, severe tricuspid regurgitation, depression , and severe metabolic acidosis secondary to volume contraction at the time. Patient has been compliant with her meds however she presented to the ER yesterday with mostly few days history of increased shortness of breath patient has been coughing and the cough is productive with greenish phlegm, no fever no chills no hemoptysis no chest pain. Chest x-ray showed evidence of congestive heart failure and good sized right-sided pleural effusion which was confirmed by a bee using ultrasound and I would likely perform a right-sided thoracentesis on the patient for diagnostic and therapeutic purposes. Presently , the patient denies any headaches no blurred vision no dizziness, no nausea no vomiting no abdominal pain no melena no hematemesis no dysuria frequency no urgency. Review of Systems 14 point review of systems were obtained, please refer to pertinent positives and negatives in HPI Past Medical History Past Medical History: Atrial Flutter, Coronary Artery Disease (CAD), Heart Failure, COPD, GERD/Reflux, Hyperlipidemia, Hypertension, Myocardial Infarction (PR), Osteoarthritis (OA), Syncope, Thyroid Disorder Additional Past Medical History / Comment(s): COPD and the patient is on home O2 at 2 L/m nasal cannula and she has a baseline FEV1 of 30% of predicted and she is a nonsmoker, congestion heart failure with an ejection fraction of 30-35 % along with severe pulmonary hypertension and the right ventricle systolic pressure of 60, history of atrial fibrillation/flutter/atrial tachycardia with previous cardiac ablation, fibromyalgia, hyperlipidemia, hypertension, colonic polyps, previous coronary artery disease and reported history of myocardial infarction, hypothyroidism, degenerative arthritis, nonischemiccardio myopathy , and severe peripheral vascular disease. Last Myocardial Infarction Date:: 2013 History of Any Multi-Drug Resistant Organisms: None Reported Past Surgical History: Bowel Resection, Cardiac Ablation, Section, Heart Catheterization, Tubal Ligation Additional Past Surgical History / Comment(s): Bowel resection, cardiac ablation for atrial flutter, , cardiac catheterization, tubal ligation , stent left leg Past Anesthesia/Blood Transfusion Reactions: Motion Sickness Additional Past Anesthesia/Blood Transfusion Reaction / Comment(s): CLAUSTROPHOBIA Past Psychological History: Anxiety, Depression Additional Psychological History / Comment(s): 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 Smoking Status: Former smoker Past Alcohol Use History: Rare Additional Past Alcohol Use History / Comment(s): SMOKED 40 YEARS, 1 1/2-2 PPD, quit in August Past Drug Use History: None Reported - Past Family History Mother Family Medical History: Cancer Father Family Medical History: Coronary Artery Disease (CAD) Medications and Allergies Home Medications Medication Instructions Recorded Confirmed Type Levothyroxine Sodium [Synthroid] 125 mcg PO DAILY@0600 05/14/15 01/15/17 History Metoprolol Tartrate [Lopressor] 50 mg PO TID@0800,1200,1700 08/02/15 01/15/17 History Levalbuterol Tartrate [Xopenex Hfa 2 puff INHALATION RT-Q6H PRN 01/21/16 History Inhaler] hydrALAZINE HCL [Apresoline] 25 mg PO TID@0800,1200,1700 03/24/16 01/15/17 History Aspirin EC [Ecotrin Low Dose] 81 mg PO HS@2100 12/14/16 01/15/17 History Famotidine [Pepcid] 20 mg PO DAILY@0800 12/14/16 01/15/17 History Ipratropium-Albuterol Nebulize 3 ml INHALATION RT-QID 12/14/16 01/15/17 History [Duoneb 0.5 mg-3 mg/3 ml Soln] Melatonin 5 mg PO HS PRN 12/14/16 01/15/17 History Amino Acids/Protein Hydrolys 30 ml PO DAILY@0800 01/15/17 01/15/17 History [Pro-Stat Supplement] Apixaban [Eliquis] 5 mg PO BID@0800,2100 01/15/17 01/15/17 History Atorvastatin [Lipitor] 80 mg PO HS@209901/15/17 01/15/17 History Bisacodyl 10 mg RECTAL DAILY PRN 01/15/17 01/15/17 History Budesonide [Pulmicort] 0.5 mg INHALATION RT-BID@0800,2100 01/15/17 01/15/17 History Clopidogrel [Plavix] 75 mg PO DAILY@0800 01/15/17 01/15/17 History Diltiazem Oral [Cardizem*] 30 mg PO TID@0600,1400,209901/15/17 01/15/17 History Escitalopram [Lexapro] 10 mg PO DAILY@0800 01/15/17 01/15/17 History Ferrous Sulfate [Feosol] 325 mg PO BID@0800,2100 01/15/17 01/15/17 History Formoterol Fumarate [Perforomist] 20 mcg INHALATION RT-BID@0800,1700 01/15/17 History Furosemide [Lasix] 40 mg PO DAILY@0800 01/15/17 01/15/17 History Furosemide [Lasix] 40 mg PO ONCE 01/15/17 01/15/17 History Magnesium Hydroxide [Milk of 2,400 mg PO DAILY PRN 01/15/17 01/15/17 History Magnesia] Na Phos,M-B/Na Phos,Di-Ba [Fleet 133 ml RECTAL ONCE PRN 01/15/17 01/15/17 History Adult] Potassium Chloride ER [K-Dur 10] 10 meq PO DAILY@1700 01/15/17 01/15/17 History valACYclovir [Valtrex] 500 mg PO BID PRN 01/15/17 01/15/17 History Allergies Allergy/AdvReac Type Severity Reaction Status Date / Time ciprofloxacin HCl Allergy Severe Anaphylaxis Verified 01/15/17 22:59 [From Cipro] budesonide [From Symbicort] AdvReac Rapid Verified 01/15/17 22:59 Heart Rate formoterol fumarate AdvReac Rapid Verified 01/15/17 22:59 [From Symbicort] Heart Rate Physical Exam Vitals: Vital Signs Temp Pulse Pulse Resp BP BP Pulse Ox 01/16/17 12:00 97.7 F 90 16 115/68 96 01/16/17 11:48 88 01/16/17 11:35 84 01/16/17 09:00 97 16 01/16/17 08:31 84 01/16/17 08:08 84 01/16/17 08:00 96.1 F L 97 16 133/68 94 L 01/16/17 07:56 72 01/16/17 07:31 96.1 F L 97 16 133/68 94 L 01/16/17 04:00 97.7 F 98 19 133/74 90 L 01/16/17 03:15 98 01/16/17 03:04 100 01/16/17 01:53 97.0 F L 94 26 H 153/66 92 L 01/16/17 00:29 95 20 137/65 94 L 01/16/17 00:23 97.0 F L 94 26 H 153/66 92 L Intake and Output 01/15/17 01/16/17 01/16/17 22:59 06:59 14:59 Intake Total 750 450 Output Total 300 Balance 450 450 Intake: IV 250 Vancomycin 1,000 mg In 250 Sodium Chloride 0.9% 250 ml @ 125 mls/hr IVPB ONCE STA Rx#:[id number] Intake, IV Titration 50 Amount Piperacillin-Tazobactam 3 50 .375 gm In Dextrose/Water 1 50ml.bag @ 12.5 mls/hr IVPB ONCE STA Rx#: [id number] Oral 450 450 Output: Urine 300 Other: Voiding Method Toilet Bedside Commode # Voids 2 Weight 68 kg 68 kg Patient Weight 01/17/17 06:59 Weight 68 kg Physical Exam: Revealed a 61-year-old female in no distress, seems quite frail and chronically ill HEENT:[Neck is supple.] [No neck masses.] [No thyromegaly.] [No JVD.] Chest: [Diminished breath sounds at the bases with crackles, dullness noted at the right lung base.] Cardiac Exam: [Normal S1 and S2, no S3 gallop, 2/6 systolic murmur throughout the precordium.] Abdomen: [Soft, nontender, no megaly, no rebound, no guarding, normal bowel sounds.] Extremities: [No clubbing, trace of bipedal edema, no cyanosis.] Neurological Exam: [No focal neurologic deficit.] Results - Laboratory Findings CBC and BMP: 01/15/17 22:40 01/15/17 22:40 PT/INR, D-dimer PT 12.8 sec (9.0-12.0) H 01/15/17 22:40 INR 1.3 (<1.1) 01/15/17 22:40 Abnormal lab findings: Abnormal Labs 01/16/17 01/16/17 06:07 11:36 POC Glucose (mg/dL) 163 H CK-MB (CK-2) 2.5 H* - Diagnostic Findings Chest x-ray: image reviewed (Chest x-ray is consistent with congestive heart failure, strongly doubt pneumonia there is a good sized right-sided pleural effusion) Assessment and Plan Plan: Impression: 1 acute on chronic congestive heart failure secondary to LV dysfunction. 2 right sided pleural effusion felt to be cardiac in nature unless otherwise. 3 history of underlying COPD presently on bronchodilators. 4 history of cardiac arrhythmia in the form of atrial fibrillation and atrial flutter, patient is presently on a course however if thoracentesis is to be done I will hold other causes for the next couple of days. 5 history of underlying coronary artery disease 6 history of chronic hypoxic respiratory failure maintained on home O2 at 2 L nasal cannula 7 history of multiple comorbidities including fibromyalgia hyperlipidemia hypertension colonic polyps coronary artery disease and hypothyroidism and severe peripheral vessel occlusive disease. Recommendation: Patient will be placed on Lasix and Diamox, will review the ultrasound, hold Rocky, and consider thoracentesis. In the meantime continue diuretics and bronchodilators as well as antibiotics. We'll continue to follow Time with Patient: Greater than 30
[2017-01-16 13:05] LABS: Creatine Kinase MB 2.2 ng/mL (0.0-2.4); Troponin I 0.025 ng/mL (0.000-0.034)
--- NOTE | 2017-01-16 16:23 | HP ---
DATE OF ADMISSION: 01/16/2017 PRESENTING COMPLAINT: Short of breath. HISTORY OF PRESENTING COMPLAINT: This is a 61-year-old patient with a rather extensive medical history, currently a resident of [facility] [place], being followed by Dr. Camp. Patient's chronic stable medical conditions include COPD, atrial flutter/fibrillation, hyperlipidemia, hypertension, osteoarthritis. Patient presented with worsening shortness of breath, some swelling of the legs, found to be in congestive heart failure, given IV Lasix, with which breathing is getting a bit better. Patient has been working with Physical Therapy at the rehab place and is actually walking better, tolerating a diet. Minimal cough. No sputum production. She has got a cough which is loose; no sputum production. Weak and tired. Patient's heart rate is controlled. REVIEW OF SYSTEMS: CONSTITUTIONAL: Weak and tired. HEENT: None. RESPIRATORY: As above. CARDIOVASCULAR: As above. GASTROINTESTINAL: None. GENITOURINARY: None. MUSCULOSKELETAL: Pain in the joints. DERMATOLOGICAL: Dry skin, bruising. HEMATOLOGICAL: None. LYMPHATICS: None. PSYCHIATRY: Anxiety. NEUROLOGICAL: Restless leg syndrome. PAST MEDICAL HISTORY: 1. Atrial tachycardia with failed ablation in the past. 2. Atrial flutter/fibrillation. 3. Coronary artery disease. 4. COPD. 5. Fibromyalgia. 6. Hyperlipidemia. 7. Hypertension. 8. DJD. 9. Home oxygen. 10. Hypothyroidism. 11. Congestive heart failure; EF 30% to 35%. PAST SURGICAL HISTORY: 1. Bowel resection. 2. . 3. Cardiac catheterization. 4. EP study with ablation. SOCIAL HISTORY: Patient smoked for many years; stopped 3 years ago. Currently a resident of [facility] [place]. ALLERGIES: 1. CIPROFLOXACIN. 2. BUDESONIDE 3. SYMBICORT. FAMILY HISTORY: Reviewed; noncontributory to presentation. HOME MEDICATIONS: 1. Valtrex 500 mg p.o. b.i.d. p.r.n. 2. Hydralazine 25 mg p.o. t.i.d. 3. Potassium 10 mEq daily. 4. Fleet Adult 133 mL rectally once. 5. Lopressor 50 mg p.o. t.i.d. 6. Melatonin 3 mg at bedtime. 7. Milk of Magnesia 2400 mg p.o. daily p.r.n. 8. Synthroid 125 mcg p.o. daily. 9. Xopenex HFA 2 puffs q.6 p.r.n. 10. Ativan 0.5 q.8 p.r.n. 11. DuoNeb q.i.d. plus p.r.n. 12. [place] 5 one tablet q.6 p.r.n. 13. Lasix 40 mg daily. 14. Perforomist 20 mcg inhalation b.i.d. 15. Feosol 325 p.o. b.i.d. 16. Pepcid 20 mg p.o. daily. 17. Lexapro 10 mg p.o. daily. 18. Cardizem 30 mg p.o. t.i.d. 19. Plavix 75 mg p.o. daily. 20. Pulmicort 0.5 inhalation b.i.d. 21. Lipitor 80 mg p.o. at bedtime. 22. Aspirin 81 mg p.o. at bedtime. 23. Eliquis 5 mg p.o. b.i.d. 24. ProStat 30 mL p.o. daily. PHYSICAL EXAMINATION: VITAL SIGNS ON PRESENTATION: Temperature 97, pulse 89, respiration 24, blood pressure 143/68, pulse ox 98% on 2 L. GENERAL APPEARANCE: Average build. Lying in bed. Tired-appearing. EYES: Pupils equal. Conjunctivae normal. HEENT: Oral cavity normal. NECK: JVD unable to assess. Mass not palpable. RESPIRATORY: Effort increased. LUNGS: Diminished breath sounds. CARDIOVASCULAR: Heart sounds irregular. Edema present. ABDOMEN: Distended, soft. Liver and spleen not palpable. LYMPHATICS: No lymph node palpable in neck or axillae. PSYCHIATRY: Alert and oriented x3. Mood and affect anxious-appearing. NEUROLOGICAL: Pupils equal. Cranial nerves grossly intact. Power and sensation grossly intact. INVESTIGATIONS: White count 5.3, hemoglobin 9. Potassium 4.0. BUN 25, creatinine 0.82. ProBNP 6240. Chest x-ray shows pleural effusion and pulmonary edema. ASSESSMENT: 1. Acute on chronic congestive heart failure exacerbation from systolic dysfunction; ejection fraction 30% to 35%, from underlying coronary artery disease, decompensated. 2. Atrial flutter/fibrillation, heart rate controlled in the 80s. Patient has a history of EP study and ablation in the past. 3. Chronic obstructive pulmonary disease with end-stage lung condition in an ex-smoker. 4. Restless leg syndrome. 5. Fibromyalgia. 6. Hyperlipidemia. 7. Essential hypertension. 8. Primary osteoarthritis in multiple joints, bilateral. 9. Chronic hypoxic respiratory failure with underlying chronic obstructive pulmonary disease, on 2 liters of oxygen. 10. Hypothyroidism. 11. ( ) secondary pulmonary hypertension secondary to chronic obstructive pulmonary disease. 12. Severe tricuspid regurgitation, non-rheumatic. 13. Depression not otherwise specified. 14. Hyponatremia, normal osmolar. 15. Metabolic alkalosis secondary to volume contraction. Patient on steroids. PLAN: Patient is put on IV Lasix. Home medications are resumed. Prognosis is guarded. Patient is on Eliquis for anticoagulation. Dr. Gonzalez from Pulmonary was consulted. Will also consult Dr. Rudd. Overall prognosis is guarded.
--- NOTE | 2017-01-16 17:35 | CONS ---
DATE OF CONSULTATION: CHIEF COMPLAINT: Shortness of breath. Allison is a 61-year-old lady with complex and multiple medical problems including cardiomyopathy, hypertension, dyslipidemia, COPD, paroxysmal atrial fibrillation, severe peripheral vascular disease status post balloon angioplasty of right superficial femoral artery complicated by hematoma in the past, presents to the hospital complaining of shortness of breath and weight gain and leg edema. She has a combination of problems including acute exacerbation of chronic congestive heart failure and chronic obstructive pulmonary disease exacerbation. She had been treated with IV diuretics, with some improvement in her symptoms. At the time of my evaluation, she appeared comfortable at rest and states that she is feeling better. Past medical history is significant for hypertension, dyslipidemia, cardiomyopathy with an ejection fraction of 45%, COPD, peripheral vascular disease. Medications include the patient was on: 1. Valtrex. 2. Apresoline. 3. K-Dur. 4. Lopressor 50 t.i.d. 5. Levothyroxine. 6. Xopenex. 7. Ativan. 8. [place]. 9. Lasix. 10. Lexapro. 11. Cardizem. 12. Plavix. 13. Pulmicort. 14. Lipitor. 15. Aspirin. 16. Eliquis. ALLERGIES: ALLERGIC TO CIPRO AND SYMBICORT. FAMILY HISTORY: Negative for premature coronary artery disease. SOCIAL HISTORY: Negative for current smoking, ETOH use or drug abuse. REVIEW OF SYSTEMS: HEENT: Unremarkable. CARDIAC: As described above. RESPIRATORY: As described above. GI: Negative. GENITOURINARY: Negative. Allergy/immunology: Negative. MUSCULOSKELETAL: Significant for arthritis. PSYCHOSOCIAL: Negative. Dermatology: Negative. CONSTITUTIONAL: Negative. Oncological: Negative. The rest of the system review is not relevant. On exam, patient is comfortable at rest. Afebrile. Vital signs are stable. There is no jugular venous distention. Chest exam reveals diminished air entry at the bases with occasional rhonchi bilaterally. Heart exam reveals first and second heart sounds, ejection systolic murmur in the aortic area and a systolic murmur at the apex. ABDOMEN: Soft. Exam of extremities reveals bilateral 1+ pitting edema. Labs show a potassium of 4. Creatinine is 0.8. Three sets of troponins are negative. BNP is elevated at 6240. EKG shows atrial fibrillation with nonspecific ST-T wave changes. Patient had an echo in 2016 that revealed moderate MR with moderate LV systolic dysfunction. A carotid duplex study revealed bilateral carotid stenosis, an abdominal duplex study revealed moderate disease. ASSESSMENT: 1. Acute exacerbation of chronic systolic heart failure. 2. Chronic obstructive pulmonary disease exacerbation. 3. Chronic atrial fibrillation with controlled ventricular rate. 4. Hypertension. 5. Dyslipidemia. PLAN: I will treat the patient, will continue her current medical therapy and I reviewed all her records including outpatient records.
[2017-01-16 17:43] LABS: Glucose,Whole Blood 205 mg/dL (75-99)
[2017-01-16] MEDS: POTASSIUM CHLORIDE ER 10 MEQ TAB.ER.PRT PO SCH (17:54)
[2017-01-16 20:34] LABS: Glucose,Whole Blood 243 mg/dL (75-99)
[2017-01-16] MEDS ORDERED: methylPREDNISolone SOD SUCCI 125 MG/2 ML VIAL IV SCH (21:00)
[2017-01-16] MEDS: ATORVASTATIN 80 MG TAB PO SCH (21:18)
[2017-01-16] MEDS: FUROSEMIDE 10 MG/ML 4 ML VIAL IV SCH (21:19)
[2017-01-16] MEDS: methylPREDNISolone SOD SUCCI 40 MG/ML 1 ML VIAL IV SCH (21:19)
[2017-01-16] MEDS: MELATONIN 5 MG TABLET PO PRN (21:56)
[2017-01-17] MEDS: IPRATROPIUM-ALBUTEROL 3 ML NEB INHALATION SCH ×6 (04:45→22:03)
[2017-01-17 06:29] LABS: Glucose,Whole Blood 181 mg/dL (75-99)
[2017-01-17] MEDS: INSULIN LISPRO (humaLOG) 300 UNIT/3 ML VIAL SQ SCH ×4 (06:34→20:40)
[2017-01-17] MEDS: LEVOTHYROXINE 125 MCG TAB PO SCH (06:34)
[2017-01-17] MEDS: DILTIAZEM ORAL 30 MG TAB PO SCH ×3 (06:34→20:40)
[2017-01-17] MEDS: FORMOTEROL FUMARATE 20 MCG/2 ML NEBU INHALATION SCH ×2 (08:23→20:58)
[2017-01-17] MEDS: BUDESONIDE 0.5 MG/2 ML NEBU INHALATION SCH ×2 (08:23→20:58)
[2017-01-17] MEDS ORDERED: ASPIRIN 325 MG TAB PO SCH (09:00)
[2017-01-17] MEDS: LORazepam 0.5 MG TAB PO PRN ×2 (09:01→17:02)
--- NOTE | 2017-01-17 09:26 | CDI ---
In responding to this query, please exercise your independent professional judgment. The [facility] Coding Staff and Clinical Documentation Specialists appreciate your assistance in clarifying documentation, maintaining compliance with coding guidelines, accurately documenting patients condition and capturing severity of illness. The fact that a question is asked does not imply that any particular answer is desired or expected. Communication forms are a method of clarifying documentation and are not made part of the Legal Health Record. Thank you in advance for your clarification. Last Revision, December 2015 Vidhya Ortega [address] [place] [address] Documentation Clarification Form Date: 01/17/2017 9:08:00 AM From: George Sweet, RN, BSN, CDI Admit Date: 01/16/2017 12:11:00 AM Patient Name: Allison Saucedo Visit Number: [id number] Dr. Iglesia Ramos: The patient presented with the following respiratory symptoms: CALIN and cough for the last 3 days. "Acute respiratory failure" documented in the ED impressions. "Chronic respiratory failure" is documented in the H&P. History/Risk Factors: 61 yo female presents from [facility] with a history of CHF, CAD , COPD with 2L home oxygen dependence with end-stage lung condition, nonischemic cardiomyopathy and history of smoking. She was given a breathing treatment by EMS prior to arrival with some relief. Tobacco use: "smoked for many years, stopped 3 yrs ago" Home oxygen: 2L ATC Clinical Indicators: Vital signs/Pulse oximetry: Per ED physician: " her pulse ox was only 84% on 2L initially- it appears that she does have some respiratory failure". RR of 24- 26. Lung/Breathing assessment: Wheezing noted bilaterally, (+)accessory muscle use documented by nursing Treatment: pulmonary consult, duonebs, Solumedrol, Ativan PRN, Lasix IV Pulse ox: 90-94% on 4L O2: 2-4L In your professional opinion, can you please clarify if these findings signify one of the following conditions? Acuity: o Acute o Chronic o Acute on Chronic Respiratory Status: o Respiratory failure o Respiratory failure with hypercapnia o Respiratory failure with hypoxia o Acute Respiratory Distress o Other Diagnosis, please specify o Unable to determine Please document in your progress notes and discharge summary in order to capture severity of illness and risk of mortality. Include clinical findings that support your diagnosis. FYI: Press F11 to launch patient chart. Place X here if this finding has no clinical significance, is not applicable or if you are not able to provide any additional documentation. GARY
[2017-01-17] MEDS: FAMOTIDINE 20 MG TAB PO SCH (09:33)
[2017-01-17] MEDS: ESCITALOPRAM 10 MG TAB PO SCH (09:33)
[2017-01-17] MEDS: METOPROLOL TARTRATE 50 MG TAB PO SCH ×3 (09:34→17:01)
[2017-01-17] MEDS: FERROUS SULFATE 325 MG TAB PO SCH ×2 (09:34→20:40)
[2017-01-17] MEDS: hydrALAZINE HCL 25 MG TAB PO SCH ×3 (09:34→17:01)
[2017-01-17] MEDS: FUROSEMIDE 10 MG/ML 4 ML VIAL IV SCH ×2 (10:18→20:40)
[2017-01-17] MEDS: methylPREDNISolone SOD SUCCI 40 MG/ML 1 ML VIAL IV SCH ×2 (10:18→20:41)
[2017-01-17] MEDS: NITROGLYCERIN OINT 1 INCH/GM PACKET TOPICAL SCH ×4 (10:48→20:44)
[2017-01-17 11:36] LABS: Glucose,Whole Blood 194 mg/dL (75-99)
--- NOTE | 2017-01-17 11:44 | P.PN ---
Subjective Principal diagnosis: Acute on chronic Congestive heart failure and COPD This is a 61-year-old female familiar to my service, patient is known to have history of severe cardiomyopathy and LV dysfunction, chronic congestive heart failure, underlying COPD, patient was last admitted to the hospital on 12/23/2016 , and she was discharged on 12/29/2016 I saw her during her last admission, and she had mostly a picture of congestive heart failure, atrial fibrillation with RVR, chronic congestive heart failure, chronic LV dysfunction with ejection fraction of 30%, history of COPD, fibromyalgia, restless leg syndrome, hypertension, degenerative joint disease, chronic hypoxic and hypercapnic respiratory failure, hypothyroidism, severe tricuspid regurgitation, depression , and severe metabolic acidosis secondary to volume contraction at the time. Patient has been compliant with her meds however she presented to the ER yesterday with mostly few days history of increased shortness of breath patient has been coughing and the cough is productive with greenish phlegm, no fever no chills no hemoptysis no chest pain. Chest x-ray showed evidence of congestive heart failure and good sized right-sided pleural effusion which was confirmed by a bee using ultrasound and I would likely perform a right-sided thoracentesis on the patient for diagnostic and therapeutic purposes. Presently , the patient denies any headaches no blurred vision no dizziness, no nausea no vomiting no abdominal pain no melena no hematemesis no dysuria frequency no urgency. Patient was reevaluated today on 01/17/2017, and I was planning to perform thoracentesis on this patient because of her pleural effusion, however the patient is quite anxious, in tears, and not to agreeable to proceed with the thoracentesis today. Patient was made aware of 2% risk of pneumothorax or bleeding, and she was even more anxious about the whole procedure. Then I felt it would be best to cancel the procedure and if she changes her mind to have it done down the line, this could be done on outpatient basis by interventional radiology. I held her anticoagulation therapy yesterday hoping to have it done today, but will go ahead and place her back on her medications, continue diuretics, and no plans for thoracentesis today. Patient seems to be feeling better overall and she remains on diuretics and bronchodilators. Objective - Vital Signs Vital signs: Vital Signs Temp 97.0 F L 01/17/17 11:22 Pulse 91 01/17/17 11:22 Resp 16 01/17/17 11:22 BP 129/67 01/17/17 11:22 Pulse Ox 95 01/17/17 11:22 Intake & Output 01/16/17 01/17/17 01/17/17 18:59 06:59 18:59 Intake Total 0490 613 5052 Output Total 500 400 Balance 5565 056 8176 Weight 68 kg 67.6 kg Intake: IV 120 0.9 120 Oral 1428 227 9169 Output: Urine 500 400 Other: Voiding Method Bedside Commode Bedside Commode Bedside Commode # Voids 2 1 0 # Bowel Movements 1 - Exam Physical Exam: Revealed a 61-year-old female in no distress, seems quite frail and chronically ill HEENT:[Neck is supple.] [No neck masses.] [No thyromegaly.] [No JVD.] Chest: [Diminished breath sounds at the bases with crackles, dullness noted at the right lung base.] Cardiac Exam: [Normal S1 and S2, no S3 gallop, 2/6 systolic murmur throughout the precordium.] Abdomen: [Soft, nontender, no megaly, no rebound, no guarding, normal bowel sounds.] Extremities: [No clubbing, trace of bipedal edema, no cyanosis.] Neurological Exam: [No focal neurologic deficit.] - Labs CBC & Chem 7: 01/15/17 22:40 01/15/17 22:40 Labs: Abnormal Lab Results - Last 24 Hours (Table) 01/16/17 01/16/17 01/17/17 Range/Units 17:38 20:33 06:28 POC Glucose (mg/dL) 205 H 243 H 181 H (75-99) mg/dL 01/17/17 Range/Units 11:29 POC Glucose (mg/dL) 194 H (75-99) mg/dL Assessment and Plan Plan: Impression: 1 acute on chronic systolic congestive heart failure secondary to LV dysfunction. 2 right sided pleural effusion felt to be cardiac in nature unless otherwise. Since the patient is not willing to undergo thoracentesis, will continue medications in the form of diuretics, and again the fluid is considered cardiac in nature unless proven otherwise, and that should respond to diuresis. 3 history of underlying COPD presently on bronchodilators. 4 history of cardiac arrhythmia in the form of atrial fibrillation and atrial flutter, patient is presently on a course however if thoracentesis is to be done I will hold other causes for the next couple of days. 5 history of underlying coronary artery disease 6 history of chronic hypoxic respiratory failure maintained on home O2 at 2 L nasal cannula 7 history of multiple comorbidities including fibromyalgia hyperlipidemia hypertension colonic polyps coronary artery disease and hypothyroidism and severe peripheral vessel occlusive disease. Recommendation: Patient will be placed on Lasix and Diamox, continue bronchodilators, no plans for thoracentesis at this point. The effusion should respond to diuretics with time. Time with Patient: Less than 30
--- NOTE | 2017-01-17 11:59 | P.PN ---
Subjective Principal diagnosis: Shortness of breath This is a pleasant 61-year-old female who follows regularly with Dr. Milian in the office. She has a known history of severe COPD on home oxygen, systolic congestive heart failure, atrial fibrillation, chronic persistent, on Eliquis for anticoagulation, PAD with prior stent placement, prior myocardial infarction, hypertension, hyperlipidemia, and recent admission to the hospital with congestive cardiac failure and associated acute renal failure. She presented to the hospital again on this occasion with symptoms of progressively worsening shortness of breath. She has been on IV Lasix, diuresing. Weight is down 1 kg today. She has a persistent right sided pleural effusion for which an ultrasound was performed. She is scheduled to undergo thoracentesis today. Eliquis was placed on hold because of the thoracentesis which is scheduled to be performed today. Overall patient still feels quite short of breath this morning. Blood pressure 128/68 this morning with a heart rate in the 80s. Atrial fibrillation. Objective - Vital Signs Vital signs: Vital Signs Temp 97.0 F L 01/17/17 11:22 Pulse 91 01/17/17 11:22 Resp 16 01/17/17 11:22 BP 129/67 01/17/17 11:22 Pulse Ox 95 01/17/17 11:22 Intake & Output 01/16/17 01/17/17 01/17/17 18:59 06:59 18:59 Intake Total 6969 201 5849 Output Total 500 400 Balance 5973 803 5676 Weight 68 kg 67.6 kg Intake: IV 120 0.9 120 Oral 3835 887 6454 Output: Urine 500 400 Other: Voiding Method Bedside Commode Bedside Commode Bedside Commode # Voids 2 1 0 # Bowel Movements 1 - Exam PHYSICAL EXAMINATION: HEENT: Head is atraumatic, normocephalic. Pupils equal, round. Neck is supple. There is no elevated jugular venous pressure. HEART EXAMINATION: S1 and S2 irregularly irregular systolic murmur is heard. CHEST EXAMINATION: His reveal decreased air exchange with diminished air entry to bilateral bases, right posterior base diminished a quarter of the way up. ABDOMEN: Soft, nontender. Bowel sounds are heard. No organomegaly noted. EXTREMITIES: 1+ peripheral pulses with trace evidence of peripheral edema and no calf tenderness noted. NEUROLOGIC patient is awake, alert and oriented -3. . - Labs CBC & Chem 7: 01/15/17 22:40 01/15/17 22:40 Labs: Abnormal Lab Results - Last 24 Hours (Table) 01/16/17 01/16/17 01/17/17 Range/Units 17:38 20:33 06:28 POC Glucose (mg/dL) 205 H 243 H 181 H (75-99) mg/dL 01/17/17 Range/Units 11:29 POC Glucose (mg/dL) 194 H (75-99) mg/dL Assessment and Plan Plan: Assessment and plan #1 systolic congestive heart failure acute on chronic #2 right-sided pleural effusion, patient is scheduled today to undergo thoracentesis #3 severe COPD on home O2 #4 chronic persistent atrial fibrillation, on Eliquis for anticoagulation. This is currently on hold because of the schedule thoracentesis. # 5 CAD #6 hypertension #7 hyperlipidemia #8 hypothyroidism #9 PAD with prior stenting Plan We will continue current dose of IV Lasix. Patient is scheduled today to undergo thoracentesis by Dr. Eli. Once the thoracentesis is performed, we will make sure to resume the patient's Eliquis. We will decrease the aspirin to 81 mg daily. Continue to monitor intake and output along with daily weights and daily lytes BUN and creatinine. DNP note has been reviewed, I agree with a documented findings and plan of care. Patient was seen and examined.
[2017-01-17] MEDS: CLOPIDOGREL 75 MG TAB PO SCH (12:38)
[2017-01-17] MEDS: APIXABAN 5 MG TAB PO SCH ×2 (12:39→20:41)
[2017-01-17 16:49] LABS: Glucose,Whole Blood 138 mg/dL (75-99)
[2017-01-17] MEDS: POTASSIUM CHLORIDE ER 10 MEQ TAB.ER.PRT PO SCH (17:02)
[2017-01-17 20:38] LABS: Glucose,Whole Blood 203 mg/dL (75-99)
[2017-01-17] MEDS: ATORVASTATIN 80 MG TAB PO SCH (20:40)
[2017-01-17] MEDS: MELATONIN 5 MG TABLET PO PRN (22:05)
--- NOTE | 2017-01-17 23:18 | PN ---
DATE OF SERVICE: 01/17/2017 PRESENTING COMPLAINT: Tired. INTERVAL HISTORY: This is a patient who presented with atrial flutter/fibrillation with rapid ventricular rate, CHF exacerbation. Patient has got a pleural effusion that was to be tapped today by Dr. Gonzalez, but patient got very anxious and thoracentesis was canceled. Patient otherwise is lying in bed, rather comfortable. Heart rate has been in the 80s. Breathing is better. Review of systems done for constitutional, cardiovascular, GI, pulmonary; relevant findings as above. Patient did eat well. Current medications are reviewed. Patient is back on Eliquis, aspirin, Plavix and is on IV Lasix and IV Solu-Medrol. On examination, temperature 97, pulse 92, respiration 16, blood pressure 137/62, pulse ox 92% on 2 L. GENERAL APPEARANCE: Lying in bed, more comfortable. EYES: Pupils equal. Conjunctivae normal. NECK: JVD unable to assess. Mass not palpable. RESPIRATORY: Effort increased. LUNGS: Diminished breath sounds. CARDIOVASCULAR: Heart sounds irregular. Much decreased edema. ABDOMEN: Soft, non-tender. Liver and spleen not palpable. PSYCHIATRY: Answering questions. Tired-appearing. Less anxious. INVESTIGATIONS: Accu-Cheks are noted. ASSESSMENT: 1. Acute on chronic congestive heart failure from systolic dysfunction; ejection fraction 30% to 35%, underlying coronary artery disease. Doing much better. 2. Atrial flutter/fibrillation, now rate-controlled. The patient has a prior history of EP study and ablation in the past. 3. Chronic obstructive pulmonary disease with end-stage lung condition in an ex-smoker. 4. Restless leg syndrome. 5. Fibromyalgia. 6. Hyperlipidemia. 7. Essential hypertension. 8. Primary osteoarthritis in multiple joints, bilateral. 9. Chronic hypoxic respiratory failure with underlying chronic obstructive pulmonary disease, on 2 liters of oxygen. 10. Hypothyroidism. 11. Secondary pulmonary hypertension secondary to chronic obstructive pulmonary disease. 12. Severe tricuspid regurgitation, non-rheumatic. 13. Depression not otherwise specified. 14. Hyponatremia, normal osmolar, present on admission. 15. Metabolic alkalosis due to volume contraction, patient being on steroids. PLAN: Patient's Eliquis has been put back on, as patient refused to get tapped. Overall patient is looking better. Will repeat electrolytes in the morning. Will check with Cardiology if patient's Plavix can be discontinued; will have to check when was the last intervention. Patient will also need Diamox.
--- NOTE | 2017-01-17 23:37 | PN ---
DATE OF SERVICE: 01/17/2017 ADDENDUM TO PROGRESS NOTE ADDITION TO ASSESSMENT: Acute respiratory failure, hypoxic, present on admission as per ER documentation and clinical picture, from underlying chronic obstructive pulmonary disease and congestive heart failure.
[2017-01-18] MEDS: LORazepam 0.5 MG TAB PO PRN ×2 (00:36→20:54)
[2017-01-18] MEDS: IPRATROPIUM-ALBUTEROL 3 ML NEB INHALATION PRN (01:24)
[2017-01-18 06:21] LABS: Glucose,Whole Blood 160 mg/dL (75-99)
[2017-01-18] MEDS: DILTIAZEM ORAL 30 MG TAB PO SCH ×3 (06:27→20:54)
[2017-01-18] MEDS: LEVOTHYROXINE 125 MCG TAB PO SCH (06:27)
[2017-01-18] MEDS: INSULIN LISPRO (humaLOG) 300 UNIT/3 ML VIAL SQ SCH ×4 (06:27→21:24)
[2017-01-18 07:25] LABS: Anion Gap 7 mmol/L; Blood Urea Nitrogen 28 mg/dL (7-17); Calcium 8.3 mg/dL (8.4-10.2); Carbon Dioxide 39 mmol/L (22-30); Chloride 93 mmol/L (98-107); Glucose 161 mg/dL (74-99); Non-African American GFR(MDRD) >60 (>60 ml/min/1.73 sqM); Potassium 3.2 mmol/L (3.5-5.1); Sodium 139 mmol/L (137-145)
[2017-01-18] MEDS: FORMOTEROL FUMARATE 20 MCG/2 ML NEBU INHALATION SCH ×2 (08:03→20:06)
[2017-01-18] MEDS: IPRATROPIUM-ALBUTEROL 3 ML NEB INHALATION SCH ×4 (08:03→20:06)
[2017-01-18] MEDS: BUDESONIDE 0.5 MG/2 ML NEBU INHALATION SCH ×2 (08:03→20:06)
--- NOTE | 2017-01-18 09:21 | XR ---
EXAMINATION TYPE: XR chest 2V DATE OF EXAM: 01/18/2017 9:10 AM COMPARISON: Chest x-ray January 15, 2017 HISTORY: Cough and congestion. History of pneumonia and CHF. TECHNIQUE: Frontal and lateral views of the chest are obtained. FINDINGS: There is persistent moderate size right pleural effusion and associated right basilar atel ectasis and/or infiltrate. Left lung remains clear. The cardiac silhouette size is enlarged with athe rosclerotic thoracic aorta. The osseous structures are intact. IMPRESSION: Persistent cardiomegaly with moderate size right pleural effusion and associated right b asilar atelectasis and/or infiltrate.
[2017-01-18] MEDS: methylPREDNISolone SOD SUCCI 40 MG/ML 1 ML VIAL IV SCH ×2 (09:43→21:02)
[2017-01-18] MEDS: METOPROLOL TARTRATE 50 MG TAB PO SCH ×3 (09:44→17:15)
[2017-01-18] MEDS: CLOPIDOGREL 75 MG TAB PO SCH (09:44)
[2017-01-18] MEDS: NITROGLYCERIN OINT 1 INCH/GM PACKET TOPICAL SCH ×4 (09:44→21:21)
[2017-01-18] MEDS: FUROSEMIDE 10 MG/ML 4 ML VIAL IV SCH ×2 (09:44→21:03)
[2017-01-18] MEDS: ESCITALOPRAM 10 MG TAB PO SCH (09:44)
[2017-01-18] MEDS: hydrALAZINE HCL 25 MG TAB PO SCH ×3 (09:44→17:15)
[2017-01-18] MEDS: ASPIRIN 81 MG CHEW PO SCH (09:44)
[2017-01-18] MEDS: APIXABAN 5 MG TAB PO SCH ×2 (09:44→20:54)
[2017-01-18] MEDS: FERROUS SULFATE 325 MG TAB PO SCH ×2 (09:45→20:54)
[2017-01-18] MEDS: FAMOTIDINE 20 MG TAB PO SCH (09:45)
[2017-01-18] MEDS ORDERED: POTASSIUM CHLORIDE ER 20 MEQ TAB.ER PO STA (11:11)
[2017-01-18 11:47] LABS: Glucose,Whole Blood 177 mg/dL (75-99)
--- NOTE | 2017-01-18 13:18 | P.PN ---
Subjective Principal diagnosis: Shortness of breath This is a pleasant 61-year-old female who follows regularly with Dr. Milian in the office. She has a known history of severe COPD on home oxygen, systolic congestive heart failure, atrial fibrillation, chronic persistent, on Eliquis for anticoagulation, PAD with prior stent placement, prior myocardial infarction, hypertension, hyperlipidemia, and recent admission to the hospital with congestive cardiac failure and associated acute renal failure. She presented to the hospital again on this occasion with symptoms of progressively worsening shortness of breath. She has been on IV Lasix, diuresing. Patient was recommended yesterday to undergo thoracentesis, however she became quite anxious and refused. This morning she continues to feel short of breath, states that she wants to continue with the IV Lasix and only if absolutely necessary undergo thoracentesis. Chest x-ray was performed today which revealed persistent cardiomegaly with a moderate-sized right pleural effusion and associated right basilar atelectasis and/or infiltrate. Blood pressure 110/ 60 with a heart rate in the 80s. Potassium 3.2, creatinine 0.7. Objective - Vital Signs Vital signs: Vital Signs Temp 97 F L 01/18/17 08:00 Pulse 96 01/18/17 11:56 Resp 18 01/18/17 08:00 BP 110/59 01/18/17 08:00 Pulse Ox 94 L 01/18/17 08:00 Intake & Output 01/17/17 01/18/17 01/18/17 18:59 06:59 18:59 Intake Total 3400 120 170 Output Total 100 Balance 3400 120 70 Weight 68.5 kg Intake: IV 120 50 0.9 120 50 Oral 3400 120 Output: Urine 100 Other: Voiding Method Bedside Commode Bedside Commode # Voids 1 2 # Bowel Movements 0 - Exam PHYSICAL EXAMINATION: HEENT: Head is atraumatic, normocephalic. Pupils equal, round. Neck is supple. There is no elevated jugular venous pressure. HEART EXAMINATION: S1 and S2 irregularly irregular systolic murmur is heard. CHEST EXAMINATION: Lungs reveal decreased air exchange with diminished air entry to bilateral bases, right posterior base diminished a quarter to half of the way up. ABDOMEN: Soft, nontender. Bowel sounds are heard. No organomegaly noted. EXTREMITIES: 1+ peripheral pulses with trace evidence of peripheral edema and no calf tenderness noted. NEUROLOGIC patient is awake, alert and oriented -3. . - Labs CBC & Chem 7: 01/15/17 22:40 01/18/17 06:13 Labs: Abnormal Lab Results - Last 24 Hours (Table) 01/17/17 01/17/17 01/18/17 Range/Units 16:29 20:36 06:11 Potassium (3.5-5.1) mmol/L Chloride (98-107) mmol/L Carbon Dioxide (22-30) mmol/L BUN (7-17) mg/dL Glucose (74-99) mg/dL POC Glucose (mg/dL) 138 H 203 H 160 H (75-99) mg/dL Calcium (8.4-10.2) mg/dL 01/18/17 01/18/17 Range/Units 06:13 11:42 Potassium 3.2 L (3.5-5.1) mmol/L Chloride 93 L (98-107) mmol/L Carbon Dioxide 39 H (22-30) mmol/L BUN 28 H (7-17) mg/dL Glucose 161 H (74-99) mg/dL POC Glucose (mg/dL) 177 H (75-99) mg/dL Calcium 8.3 L (8.4-10.2) mg/dL Assessment and Plan Plan: Assessment and plan #1 systolic congestive heart failure acute on chronic #2 right-sided pleural effusion #3 severe COPD on home O2 #4 chronic persistent atrial fibrillation, on Eliquis for anticoagulation. # 5 CAD #6 hypertension #7 hyperlipidemia #8 hypothyroidism #9 PAD with prior stenting Plan We will continue current dose of IV Lasix. Because the patient is refusing thoracentesis, the Eliquis has been resumed. We will check lytes BUN and creatinine in the morning. DNP note has been reviewed, I agree with a documented findings and plan of care. Patient was seen and examined.
[2017-01-18] MEDS: HYDROcodone/APAP 5-325MG 1 EACH TAB PO PRN ×2 (14:17→20:54)
--- NOTE | 2017-01-18 14:39 | P.PN ---
Subjective Principal diagnosis: Acute on chronic Congestive heart failure and COPD This is a 61-year-old female familiar to my service, patient is known to have history of severe cardiomyopathy and LV dysfunction, chronic congestive heart failure, underlying COPD, patient was last admitted to the hospital on 12/23/2016 , and she was discharged on 12/29/2016 I saw her during her last admission, and she had mostly a picture of congestive heart failure, atrial fibrillation with RVR, chronic congestive heart failure, chronic LV dysfunction with ejection fraction of 30%, history of COPD, fibromyalgia, restless leg syndrome, hypertension, degenerative joint disease, chronic hypoxic and hypercapnic respiratory failure, hypothyroidism, severe tricuspid regurgitation, depression , and severe metabolic acidosis secondary to volume contraction at the time. Patient has been compliant with her meds however she presented to the ER yesterday with mostly few days history of increased shortness of breath patient has been coughing and the cough is productive with greenish phlegm, no fever no chills no hemoptysis no chest pain. Chest x-ray showed evidence of congestive heart failure and good sized right-sided pleural effusion which was confirmed by a bee using ultrasound and I would likely perform a right-sided thoracentesis on the patient for diagnostic and therapeutic purposes. Presently , the patient denies any headaches no blurred vision no dizziness, no nausea no vomiting no abdominal pain no melena no hematemesis no dysuria frequency no urgency. Patient was reevaluated today on 01/17/2017, and I was planning to perform thoracentesis on this patient because of her pleural effusion, however the patient is quite anxious, in tears, and not to agreeable to proceed with the thoracentesis today. Patient was made aware of 2% risk of pneumothorax or bleeding, and she was even more anxious about the whole procedure. Then I felt it would be best to cancel the procedure and if she changes her mind to have it done down the line, this could be done on outpatient basis by interventional radiology. I held her anticoagulation therapy yesterday hoping to have it done today, but will go ahead and place her back on her medications, continue diuretics, and no plans for thoracentesis today. Patient seems to be feeling better overall and she remains on diuretics and bronchodilators. Reevaluated today on 01/18/2017, patient is doing a bit better, she seems to be more awake, in no distress, chest x-ray continues to show moderate sized right- sided pleural effusion. Patient remains on bronchodilators, diuretics, labs were reviewed potassium is a bit low and it will be corrected as per protocol. Bicarb remains elevated as expected it is 39 today by Objective - Vital Signs Vital signs: Vital Signs Temp 97 F L 01/18/17 08:00 Pulse 96 01/18/17 11:56 Resp 18 01/18/17 08:00 BP 110/59 01/18/17 08:00 Pulse Ox 94 L 01/18/17 08:00 Intake & Output 01/17/17 01/18/17 01/18/17 18:59 06:59 18:59 Intake Total 3400 120 170 Output Total 100 Balance 3400 120 70 Weight 68.5 kg Intake: IV 120 50 0.9 120 50 Oral 3400 120 Output: Urine 100 Other: Voiding Method Bedside Commode Bedside Commode # Voids 1 2 # Bowel Movements 0 - Exam Physical Exam: Revealed a 61-year-old female in no distress, seems quite frail and chronically ill HEENT:[Neck is supple.] [No neck masses.] [No thyromegaly.] [No JVD.] Chest: [Diminished breath sounds at the bases with crackles, dullness noted at the right lung base.] Cardiac Exam: [Normal S1 and S2, no S3 gallop, 2/6 systolic murmur throughout the precordium.] Abdomen: [Soft, nontender, no megaly, no rebound, no guarding, normal bowel sounds.] Extremities: [No clubbing, trace of bipedal edema, no cyanosis.] Neurological Exam: [No focal neurologic deficit.] - Labs CBC & Chem 7: 01/15/17 22:40 01/18/17 06:13 Labs: Abnormal Lab Results - Last 24 Hours (Table) 01/17/17 01/17/17 01/18/17 Range/Units 16:29 20:36 06:11 Potassium (3.5-5.1) mmol/L Chloride (98-107) mmol/L Carbon Dioxide (22-30) mmol/L BUN (7-17) mg/dL Glucose (74-99) mg/dL POC Glucose (mg/dL) 138 H 203 H 160 H (75-99) mg/dL Calcium (8.4-10.2) mg/dL 01/18/17 01/18/17 Range/Units 06:13 11:42 Potassium 3.2 L (3.5-5.1) mmol/L Chloride 93 L (98-107) mmol/L Carbon Dioxide 39 H (22-30) mmol/L BUN 28 H (7-17) mg/dL Glucose 161 H (74-99) mg/dL POC Glucose (mg/dL) 177 H (75-99) mg/dL Calcium 8.3 L (8.4-10.2) mg/dL Assessment and Plan Plan: Impression: 1 acute on chronic systolic congestive heart failure secondary to LV dysfunction. 2 right sided pleural effusion felt to be cardiac in nature unless otherwise. Since the patient is not willing to undergo thoracentesis, will continue medications in the form of diuretics, and again the fluid is considered cardiac in nature unless proven otherwise, and that should respond to diuresis. 3 history of underlying COPD presently on bronchodilators. 4 history of cardiac arrhythmia in the form of atrial fibrillation and atrial flutter, patient is presently on a course however if thoracentesis is to be done I will hold other causes for the next couple of days. 5 history of underlying coronary artery disease 6 history of chronic hypoxic respiratory failure maintained on home O2 at 2 L nasal cannula 7 history of multiple comorbidities including fibromyalgia hyperlipidemia hypertension colonic polyps coronary artery disease and hypothyroidism and severe peripheral vessel occlusive disease. Recommendation: Patient will be placed on Lasix and Diamox, continue bronchodilators, no plans for thoracentesis at this point. The effusion should respond to diuretics with time. Time with Patient: Less than 30
[2017-01-18 16:33] LABS: Glucose,Whole Blood 119 mg/dL (75-99)
[2017-01-18] MEDS: POTASSIUM CHLORIDE ER 10 MEQ TAB.ER.PRT PO SCH (17:16)
[2017-01-18] MEDS: MELATONIN 5 MG TABLET PO PRN (20:54)
[2017-01-18] MEDS: ATORVASTATIN 80 MG TAB PO SCH (20:54)
[2017-01-18 21:07] LABS: Glucose,Whole Blood 206 mg/dL (75-99)
--- NOTE | 2017-01-18 22:14 | PN ---
DATE OF SERVICE: 01/18/2017 PRESENTING COMPLAINT: Tired. INTERVAL HISTORY: This is a patient who presented with atrial flutter fibrillation with rapid ventricular rate, CHF exacerbation and also has got pleural effusion. The patient did want to get tapped. Patient's appetite is good. Tired. Heart rate is better controlled. Getting IV Lasix. Review of systems done for constitutional, cardiovascular, GI, pulmonary; relevant findings as above. Current medications are reviewed that include Duoneb, IV Lasix, IV Solu-Medrol. On examination, temperature 97, pulse 95, respirations 18, blood pressure 1106/70, pulse ox 95% on 3 L. GENERAL APPEARANCE: Lying in bed, tired appearing. EYES: Pupils equal. Conjunctivae normal. NECK: JVD unable to assess. Mass not palpable. Respiratory effort increased. LUNGS: Diminished breath sounds. CARDIOVASCULAR: Heart sounds irregular. Decreased edema. ABDOMEN: Soft, nontender. Liver and spleen not palpable. PSYCHIATRY: Awake, answering questions. INVESTIGATIONS: Potassium 3.2. BUN 28, creatinine 0.7. Accu-Cheks are noted. Chest x-ray shows right sided pleural effusion. ASSESSMENT: 1. Acute on chronic congestive heart failure from systolic dysfunction; ejection fraction 30% to 35%, underlying coronary artery disease. 2. Atrial flutter fibrillation now rate controlled. Patient had a prior EP study and ablation in the past. 3. Chronic obstructive pulmonary disease with end-stage lung condition in an ex-smoker. 4. Right sided pleural effusion from congestive heart failure. 5. Restless leg syndrome. 6. Fibromyalgia. 7. Hyperlipidemia. 8. Essential hypertension. 9. Primary osteoarthritis of multiple joints, bilateral. 10. Chronic hypoxic respiratory failure with underlying chronic obstructive pulmonary disease on 2 L oxygen. 11. Hypothyroidism. 12. Secondary pulmonary hypertension secondary to chronic obstructive pulmonary disease. 13. Severe tricuspid regurgitation, nonrheumatic. 14. Depression, not otherwise specified. 15. Hyponatremia ( ) present on admission. 16. Metabolic alkalosis due to volume contraction, patient is on steroids. 17. Acute hypoxic respiratory failure, present on admission from multiple factors as above. PLAN: Continue current medication and treatment. Continue with Lasix. The patient already on Diamox. Overall prognosis is guarded due to multiple comorbidities. Follow.
[2017-01-19] MEDS: IPRATROPIUM-ALBUTEROL 3 ML NEB INHALATION PRN ×2 (04:35→23:46)
[2017-01-19 06:06] LABS: Glucose,Whole Blood 171 mg/dL (75-99)
[2017-01-19] MEDS: DILTIAZEM ORAL 30 MG TAB PO SCH ×3 (06:08→20:50)
[2017-01-19] MEDS: LEVOTHYROXINE 125 MCG TAB PO SCH (06:08)
[2017-01-19] MEDS: INSULIN LISPRO (humaLOG) 300 UNIT/3 ML VIAL SQ SCH ×4 (06:11→20:56)
[2017-01-19] MEDS: LORazepam 0.5 MG TAB PO PRN ×2 (06:14→21:00)
[2017-01-19] MEDS: BUDESONIDE 0.5 MG/2 ML NEBU INHALATION SCH ×2 (08:37→19:41)
[2017-01-19] MEDS: IPRATROPIUM-ALBUTEROL 3 ML NEB INHALATION SCH ×4 (08:37→19:40)
[2017-01-19] MEDS: FAMOTIDINE 20 MG TAB PO SCH (09:08)
[2017-01-19] MEDS: methylPREDNISolone SOD SUCCI 40 MG/ML 1 ML VIAL IV SCH ×2 (09:08→21:02)
[2017-01-19] MEDS: METOPROLOL TARTRATE 50 MG TAB PO SCH ×3 (09:08→16:05)
[2017-01-19] MEDS: FUROSEMIDE 10 MG/ML 4 ML VIAL IV SCH ×2 (09:08→21:01)
[2017-01-19] MEDS: hydrALAZINE HCL 25 MG TAB PO SCH ×3 (09:08→16:05)
[2017-01-19] MEDS: NITROGLYCERIN OINT 1 INCH/GM PACKET TOPICAL SCH ×4 (09:08→20:05)
[2017-01-19] MEDS: FERROUS SULFATE 325 MG TAB PO SCH ×2 (09:09→20:50)
[2017-01-19] MEDS: APIXABAN 5 MG TAB PO SCH ×2 (09:09→20:51)
[2017-01-19] MEDS: ASPIRIN 81 MG CHEW PO SCH (09:09)
[2017-01-19] MEDS: ESCITALOPRAM 10 MG TAB PO SCH (09:09)
[2017-01-19] MEDS: CLOPIDOGREL 75 MG TAB PO SCH (09:09)
[2017-01-19] MEDS: HYDROcodone/APAP 5-325MG 1 EACH TAB PO PRN ×3 (09:26→21:48)
[2017-01-19] MEDS: FORMOTEROL FUMARATE 20 MCG/2 ML NEBU INHALATION SCH ×3 (10:24→19:40)
[2017-01-19 12:00] LABS: Anion Gap 11 mmol/L; Blood Urea Nitrogen 30 mg/dL (7-17); Calcium 8.2 mg/dL (8.4-10.2); Carbon Dioxide 35 mmol/L (22-30); Chloride 92 mmol/L (98-107); Glucose 295 mg/dL (74-99); Non-African American GFR(MDRD) >60 (>60 ml/min/1.73 sqM); Potassium 3.6 mmol/L (3.5-5.1); Sodium 138 mmol/L (137-145)
[2017-01-19 12:03] LABS: Glucose,Whole Blood 298 mg/dL (75-99)
--- NOTE | 2017-01-19 12:36 | P.PN ---
Subjective Principal diagnosis: Acute exacerbation of both chronic systolic congestive heart failure and COPD. This is a 61-year-old female familiar to my service, patient is known to have history of severe cardiomyopathy and LV dysfunction, chronic congestive heart failure, underlying COPD, patient was last admitted to the hospital on 12/23/2016 , and she was discharged on 12/29/2016 I saw her during her last admission, and she had mostly a picture of congestive heart failure, atrial fibrillation with RVR, chronic congestive heart failure, chronic LV dysfunction with ejection fraction of 30%, history of COPD, fibromyalgia, restless leg syndrome, hypertension, degenerative joint disease, chronic hypoxic and hypercapnic respiratory failure, hypothyroidism, severe tricuspid regurgitation, depression , and severe metabolic acidosis secondary to volume contraction at the time. Patient has been compliant with her meds however she presented to the ER yesterday with mostly few days history of increased shortness of breath patient has been coughing and the cough is productive with greenish phlegm, no fever no chills no hemoptysis no chest pain. Chest x-ray showed evidence of congestive heart failure and good sized right-sided pleural effusion which was confirmed by a bee using ultrasound and I would likely perform a right-sided thoracentesis on the patient for diagnostic and therapeutic purposes. Presently , the patient denies any headaches no blurred vision no dizziness, no nausea no vomiting no abdominal pain no melena no hematemesis no dysuria frequency no urgency. Patient was reevaluated today on 01/17/2017, and I was planning to perform thoracentesis on this patient because of her pleural effusion, however the patient is quite anxious, in tears, and not to agreeable to proceed with the thoracentesis today. Patient was made aware of 2% risk of pneumothorax or bleeding, and she was even more anxious about the whole procedure. Then I felt it would be best to cancel the procedure and if she changes her mind to have it done down the line, this could be done on outpatient basis by interventional radiology. I held her anticoagulation therapy yesterday hoping to have it done today, but will go ahead and place her back on her medications, continue diuretics, and no plans for thoracentesis today. Patient seems to be feeling better overall and she remains on diuretics and bronchodilators. Reevaluated today on 01/18/2017, patient is doing a bit better, she seems to be more awake, in no distress, chest x-ray continues to show moderate sized right- sided pleural effusion. Patient remains on bronchodilators, diuretics, labs were reviewed potassium is a bit low and it will be corrected as per protocol. Bicarb remains elevated as expected it is 39 today. The patient is seen again today 01/19/2017 in follow-up on the selective care unit. She is awake and alert in no acute distress. She states she is breathing easier today as compared to yesterday. She needs increased encouragement regarding cough and deep breathing exercises and increasing her activity. She is maintaining good O2 saturations in the upper 90s on 3 L/m per nasal cannula. Bicarb improved to 35. Objective - Vital Signs Vital signs: Vital Signs Temp 97.0 F L 01/19/17 11:21 Pulse 98 01/19/17 12:10 Resp 18 01/19/17 11:22 BP 122/59 01/19/17 11:21 Pulse Ox 98 01/19/17 11:21 Intake & Output 01/18/17 01/19/17 01/19/17 18:59 06:59 18:59 Intake Total 1470 1050 620 Output Total 400 1050 Balance 1070 0 620 Weight 69.4 kg Intake: IV 50 900 240 0.9 50 900 240 Oral 1420 150 380 Output: Urine 400 1050 Other: Voiding Method Bedside Commode Bedside Commode Bedside Commode # Voids 1 0 # Bowel Movements 1 - Exam GENERAL EXAM: Obese. Alert, comfortable in no apparent distress. HEAD: Normocephalic. EYES: Normal reaction of pupils, equal size. NOSE: Clear with pink turbinates. THROAT: No erythema or exudates. NECK: No masses, no JVD. CHEST: No chest wall deformity. LUNGS: Equal air entry with crackles in the bilateral posterior bases more so on the right lung. Diminished. CVS: S1 and S2 normal , irregular rhythm. ABDOMEN: No hepatosplenomegaly, normal bowel sounds, no guarding or rigidity. Extremities: There is 1-2+ lower extremity peripheral edema. No clubbing, no cyanosis. Peripheral pulses are intact. - Labs CBC & Chem 7: 01/15/17 22:40 01/19/17 11:18 Labs: Abnormal Lab Results - Last 24 Hours (Table) 01/18/17 01/18/17 01/19/17 Range/Units 16:31 21:05 06:04 Chloride (98-107) mmol/L Carbon Dioxide (22-30) mmol/L BUN (7-17) mg/dL Glucose (74-99) mg/dL POC Glucose (mg/dL) 119 H 206 H 171 H (75-99) mg/dL Calcium (8.4-10.2) mg/dL 01/19/17 01/19/17 Range/Units 11:18 11:45 Chloride 92 L (98-107) mmol/L Carbon Dioxide 35 H (22-30) mmol/L BUN 30 H (7-17) mg/dL Glucose 295 H (74-99) mg/dL POC Glucose (mg/dL) 298 H (75-99) mg/dL Calcium 8.2 L (8.4-10.2) mg/dL Assessment and Plan Plan: Impression: 1 acute on chronic systolic congestive heart failure secondary to LV dysfunction. 2 right sided pleural effusion felt to be cardiac in nature unless otherwise. Since the patient is not willing to undergo thoracentesis, will continue medications in the form of diuretics, and again the fluid is considered cardiac in nature unless proven otherwise, and that should respond to diuresis. 3 history of underlying COPD presently on bronchodilators. 4 history of cardiac arrhythmia in the form of atrial fibrillation and atrial flutter, patient is presently on a course however if thoracentesis is to be done I will hold other causes for the next couple of days. 5 history of underlying coronary artery disease 6 history of chronic hypoxic respiratory failure maintained on home O2 at 2 L nasal cannula 7 history of multiple comorbidities including fibromyalgia hyperlipidemia hypertension colonic polyps coronary artery disease and hypothyroidism and severe peripheral vessel occlusive disease. Plan: The patient was seen and evaluated by Dr. Gonzalez. She remains on Diamox, diuretics, bronchodilators and IV Solu-Medrol. No plans for thoracentesis at this point. She is in no acute respiratory distress. We'll continue to follow.
--- NOTE | 2017-01-19 12:42 | P.PN ---
Subjective Principal diagnosis: Shortness of breath This is a pleasant 61-year-old female who follows regularly with Dr. Milian in the office. She has a known history of severe COPD on home oxygen, systolic congestive heart failure, atrial fibrillation, chronic persistent, on Eliquis for anticoagulation, PAD with prior stent placement, prior myocardial infarction, hypertension, hyperlipidemia, and recent admission to the hospital with congestive cardiac failure and associated acute renal failure. She presented to the hospital again on this occasion with symptoms of progressively worsening shortness of breath. She has been on IV Lasix, diuresing. Patient was recommended yesterday to undergo thoracentesis, however she became quite anxious and refused. This morning she states that her breathing is improving. Feeling extremely tired. Blood pressure 110/60 with a heart rate in the 80s. Potassium 3.6, creatinine 0.8. Objective - Vital Signs Vital signs: Vital Signs Temp 97.0 F L 01/19/17 11:21 Pulse 98 01/19/17 12:10 Resp 18 01/19/17 11:22 BP 122/59 01/19/17 11:21 Pulse Ox 98 01/19/17 11:21 Intake & Output 01/18/17 01/19/17 01/19/17 18:59 06:59 18:59 Intake Total 1470 1050 620 Output Total 400 1050 Balance 1070 0 620 Weight 69.4 kg Intake: IV 50 900 240 0.9 50 900 240 Oral 1420 150 380 Output: Urine 400 1050 Other: Voiding Method Bedside Commode Bedside Commode Bedside Commode # Voids 1 0 # Bowel Movements 1 - Exam PHYSICAL EXAMINATION: HEENT: Head is atraumatic, normocephalic. Pupils equal, round. Neck is supple. There is no elevated jugular venous pressure. HEART EXAMINATION: S1 and S2 irregularly irregular systolic murmur is heard. CHEST EXAMINATION: Lungs reveal decreased air exchange with diminished air entry to bilateral bases, right posterior base diminished a quarter to half of the way up. ABDOMEN: Soft, nontender. Bowel sounds are heard. No organomegaly noted. EXTREMITIES: 1+ peripheral pulses with trace evidence of peripheral edema and no calf tenderness noted. NEUROLOGIC patient is awake, alert and oriented -3. . - Labs CBC & Chem 7: 01/15/17 22:40 01/19/17 11:18 Labs: Abnormal Lab Results - Last 24 Hours (Table) 01/18/17 01/18/17 01/19/17 Range/Units 16:31 21:05 06:04 Chloride (98-107) mmol/L Carbon Dioxide (22-30) mmol/L BUN (7-17) mg/dL Glucose (74-99) mg/dL POC Glucose (mg/dL) 119 H 206 H 171 H (75-99) mg/dL Calcium (8.4-10.2) mg/dL 01/19/17 01/19/17 Range/Units 11:18 11:45 Chloride 92 L (98-107) mmol/L Carbon Dioxide 35 H (22-30) mmol/L BUN 30 H (7-17) mg/dL Glucose 295 H (74-99) mg/dL POC Glucose (mg/dL) 298 H (75-99) mg/dL Calcium 8.2 L (8.4-10.2) mg/dL Assessment and Plan Plan: Assessment and plan #1 systolic congestive heart failure acute on chronic #2 right-sided pleural effusion #3 severe COPD on home O2 #4 chronic persistent atrial fibrillation, on Eliquis for anticoagulation. # 5 CAD #6 hypertension #7 hyperlipidemia #8 hypothyroidism #9 PAD with prior stenting Plan We will continue current dose of IV Lasix. We will check lytes BUN and creatinine in the morning. DNP note has been reviewed, I agree with a documented findings and plan of care. Patient was seen and examined.
[2017-01-19] MEDS: POTASSIUM CHLORIDE ER 10 MEQ TAB.ER.PRT PO SCH (16:05)
[2017-01-19 16:52] LABS: Glucose,Whole Blood 116 mg/dL (75-99)
[2017-01-19 20:41] LABS: Glucose,Whole Blood 215 mg/dL (75-99)
[2017-01-19] MEDS: ATORVASTATIN 80 MG TAB PO SCH (20:50)
[2017-01-19] MEDS: MELATONIN 5 MG TABLET PO PRN (21:00)
--- NOTE | 2017-01-19 21:38 | PN ---
DATE OF SERVICE: 01/19/2017 PRESENTING COMPLAINT: Tired. INTERVAL HISTORY: This is a patient who presented with atrial flutter/fibrillation with rapid ventricular rate, CHF exacerbation, and also has pleural effusion. The patient turned down having thoracentesis. Remains weak and tired. Still getting IV Lasix. Patient is slow to respond overall but tolerating a diet rather well now. Review of systems done for constitutional, cardiovascular, GI, pulmonary; relevant findings as above. Current medications are reviewed and include IV Lasix, IV Solu-Medrol, nebulized bronchodilators. On examination, temperature 97.3, pulse 95, respiration 18, blood pressure 120/56, pulse ox 97% on 3 L. GENERAL APPEARANCE: Lying in bed, tired-appearing. EYES: Pupils equal. Conjunctivae normal. NECK: JVD unable to assess. Mass not palpable. RESPIRATORY: Effort increased. LUNGS: Decreased breath sounds. CARDIOVASCULAR: Heart sounds irregular. Decreased edema. ABDOMEN: Soft, non-tender. Liver and spleen not palpable. PSYCHIATRY: Tired but awake. Answering questions appropriately. INVESTIGATIONS: Potassium 3.6. Bicarb 35. BUN 30, creatinine 0.88. Accu-Cheks are noted. Chest x-ray from yesterday shows significant pleural effusion. ASSESSMENT: 1. Acute on chronic congestive heart failure from systolic dysfunction; ejection fraction 30% to 35%, with underlying coronary artery disease, slow to respond. 2. Atrial flutter/fibrillation, rate controlled. Patient had a prior EP study and ablation in the past. 3. Chronic obstructive pulmonary disease with end-stage lung in an ex-smoker. 4. Right-sided pleural effusion from congestive heart failure, slow to respond. 5. Restless leg syndrome. 6. Fibromyalgia. 7. Hyperlipidemia. 8. Essential hypertension. 9. Primary osteoarthritis of multiple joints, bilateral. 10. Chronic hypoxic respiratory failure, chronic obstructive pulmonary disease, on 2 liters of oxygen. 11. Hypothyroidism. 12. Secondary pulmonary hypertension secondary to chronic obstructive pulmonary disease. 13. Severe tricuspid regurgitation, non-rheumatic. 14. Depression not otherwise specified. 15. Hyponatremia, hypo-osmolar, present on admission. 16. Metabolic alkalosis due to volume contraction from patient being on steroids and diuresis. 17. Acute hypoxic respiratory failure, present on admission, from multiple factors as above. PLAN: Continue current medication and treatment plan, including IV Lasix, steroids. Patient is already on Diamox. Overall prognosis remains guarded. Will follow.
[2017-01-20 06:23] LABS: Glucose,Whole Blood 179 mg/dL (75-99)
[2017-01-20] MEDS: DILTIAZEM ORAL 30 MG TAB PO SCH ×3 (06:31→20:02)
[2017-01-20] MEDS: LEVOTHYROXINE 125 MCG TAB PO SCH (06:31)
[2017-01-20] MEDS: INSULIN LISPRO (humaLOG) 300 UNIT/3 ML VIAL SQ SCH ×4 (06:31→21:18)
[2017-01-20 07:21] LABS: Anion Gap 8 mmol/L; Blood Urea Nitrogen 37 mg/dL (7-17); Calcium 8.5 mg/dL (8.4-10.2); Carbon Dioxide 37 mmol/L (22-30); Chloride 94 mmol/L (98-107); Glucose 153 mg/dL (74-99); Non-African American GFR(MDRD) >60 (>60 ml/min/1.73 sqM); Potassium 4.1 mmol/L (3.5-5.1); Sodium 139 mmol/L (137-145)
[2017-01-20] MEDS: IPRATROPIUM-ALBUTEROL 3 ML NEB INHALATION SCH ×4 (07:21→20:19)
[2017-01-20] MEDS: BUDESONIDE 0.5 MG/2 ML NEBU INHALATION SCH ×2 (07:22→20:19)
[2017-01-20] MEDS: FORMOTEROL FUMARATE 20 MCG/2 ML NEBU INHALATION SCH ×3 (07:22→20:19)
[2017-01-20] MEDS: APIXABAN 5 MG TAB PO SCH ×2 (08:10→20:02)
[2017-01-20] MEDS: FUROSEMIDE 10 MG/ML 4 ML VIAL IV SCH ×2 (08:10→20:01)
[2017-01-20] MEDS: ESCITALOPRAM 10 MG TAB PO SCH (08:10)
[2017-01-20] MEDS: methylPREDNISolone SOD SUCCI 40 MG/ML 1 ML VIAL IV SCH ×2 (08:10→20:01)
[2017-01-20] MEDS: ASPIRIN 81 MG CHEW PO SCH (08:10)
[2017-01-20] MEDS: METOPROLOL TARTRATE 50 MG TAB PO SCH ×3 (08:10→16:32)
[2017-01-20] MEDS: hydrALAZINE HCL 25 MG TAB PO SCH ×3 (08:11→16:32)
[2017-01-20] MEDS: CLOPIDOGREL 75 MG TAB PO SCH (08:11)
[2017-01-20] MEDS: FERROUS SULFATE 325 MG TAB PO SCH ×2 (08:11→20:02)
[2017-01-20] MEDS: FAMOTIDINE 20 MG TAB PO SCH (08:11)
[2017-01-20] MEDS: NITROGLYCERIN OINT 1 INCH/GM PACKET TOPICAL SCH ×4 (08:11→20:02)
[2017-01-20] MEDS: HYDROcodone/APAP 5-325MG 1 EACH TAB PO PRN ×3 (08:22→20:42)
--- NOTE | 2017-01-20 10:20 | P.PN ---
Subjective Principal diagnosis: Acute on chronic Congestive heart failure and COPD This is a 61-year-old female familiar to my service, patient is known to have history of severe cardiomyopathy and LV dysfunction, chronic congestive heart failure, underlying COPD, patient was last admitted to the hospital on 12/23/2016 , and she was discharged on 12/29/2016 I saw her during her last admission, and she had mostly a picture of congestive heart failure, atrial fibrillation with RVR, chronic congestive heart failure, chronic LV dysfunction with ejection fraction of 30%, history of COPD, fibromyalgia, restless leg syndrome, hypertension, degenerative joint disease, chronic hypoxic and hypercapnic respiratory failure, hypothyroidism, severe tricuspid regurgitation, depression , and severe metabolic acidosis secondary to volume contraction at the time. Patient has been compliant with her meds however she presented to the ER yesterday with mostly few days history of increased shortness of breath patient has been coughing and the cough is productive with greenish phlegm, no fever no chills no hemoptysis no chest pain. Chest x-ray showed evidence of congestive heart failure and good sized right-sided pleural effusion which was confirmed by a bee using ultrasound and I would likely perform a right-sided thoracentesis on the patient for diagnostic and therapeutic purposes. Presently , the patient denies any headaches no blurred vision no dizziness, no nausea no vomiting no abdominal pain no melena no hematemesis no dysuria frequency no urgency. Patient was reevaluated today on 01/17/2017, and I was planning to perform thoracentesis on this patient because of her pleural effusion, however the patient is quite anxious, in tears, and not to agreeable to proceed with the thoracentesis today. Patient was made aware of 2% risk of pneumothorax or bleeding, and she was even more anxious about the whole procedure. Then I felt it would be best to cancel the procedure and if she changes her mind to have it done down the line, this could be done on outpatient basis by interventional radiology. I held her anticoagulation therapy yesterday hoping to have it done today, but will go ahead and place her back on her medications, continue diuretics, and no plans for thoracentesis today. Patient seems to be feeling better overall and she remains on diuretics and bronchodilators. Reevaluated today on 01/18/2017, patient is doing a bit better, she seems to be more awake, in no distress, chest x-ray continues to show moderate sized right- sided pleural effusion. Patient remains on bronchodilators, diuretics, labs were reviewed potassium is a bit low and it will be corrected as per protocol. Bicarb remains elevated as expected it is 39 today The patient is seen again today 01/19/2017 in follow-up on the selective care unit. She is awake and alert in no acute distress. She states she is breathing easier today as compared to yesterday. She needs increased encouragement regarding cough and deep breathing exercises and increasing her activity. She is maintaining good O2 saturations in the upper 90s on 3 L/m per nasal cannula. Bicarb improved to 35. Patient was reevaluated today on 01/20/2017, doing better breathing easier. Does not seem to be in any form of distress, complaining most of generalized weakness. Labs were reviewed electrolytes are normal BUN is 37 creatinine 0.90 bicarb is 37. Objective - Vital Signs Vital signs: Vital Signs Temp 96.6 F L 01/20/17 08:00 Pulse 103 H 01/20/17 08:00 Resp 16 01/20/17 08:00 BP 122/59 01/20/17 08:00 Pulse Ox 95 01/20/17 08:00 Intake & Output 01/19/17 01/20/17 01/20/17 18:59 06:59 18:59 Intake Total 1220 800 120 Output Total 500 200 Balance 720 600 120 Weight 70.4 kg Intake: IV 240 100 0.9 240 100 Oral 980 700 120 Output: Urine 500 200 Other: Voiding Method Bedside Commode Bedside Commode Bedside Commode # Voids 1 # Bowel Movements 1 - Exam GENERAL EXAM: Obese. Alert, comfortable in no apparent distress. HEAD: Normocephalic. EYES: Normal reaction of pupils, equal size. NOSE: Clear with pink turbinates. THROAT: No erythema or exudates. NECK: No masses, no JVD. CHEST: No chest wall deformity. LUNGS: Equal air entry with crackles in the bilateral posterior bases more so on the right lung. Diminished. CVS: S1 and S2 normal , irregular rhythm. ABDOMEN: No hepatosplenomegaly, normal bowel sounds, no guarding or rigidity. Extremities: There is 1-2+ lower extremity peripheral edema. No clubbing, no cyanosis. Peripheral pulses are intact. - Labs CBC & Chem 7: 01/15/17 22:40 01/20/17 06:14 Labs: Abnormal Lab Results - Last 24 Hours (Table) 01/19/17 01/19/17 01/19/17 Range/Units 11:18 11:45 16:29 Chloride 92 L (98-107) mmol/L Carbon Dioxide 35 H (22-30) mmol/L BUN 30 H (7-17) mg/dL Glucose 295 H (74-99) mg/dL POC Glucose (mg/dL) 298 H 116 H (75-99) mg/dL Calcium 8.2 L (8.4-10.2) mg/dL 01/19/17 01/20/17 01/20/17 Range/Units 20:40 06:14 06:22 Chloride 94 L (98-107) mmol/L Carbon Dioxide 37 H (22-30) mmol/L BUN 37 H (7-17) mg/dL Glucose 153 H (74-99) mg/dL POC Glucose (mg/dL) 215 H 179 H (75-99) mg/dL Calcium (8.4-10.2) mg/dL Assessment and Plan Plan: 1 acute on chronic systolic congestive heart failure secondary to LV dysfunction. 2 right sided pleural effusion felt to be cardiac in nature unless otherwise. Since the patient is not willing to undergo thoracentesis, will continue medications in the form of diuretics, and again the fluid is considered cardiac in nature unless proven otherwise, and that should respond to diuresis. 3 history of underlying COPD presently on bronchodilators. 4 history of cardiac arrhythmia in the form of atrial fibrillation and atrial flutter, patient is presently on a course however if thoracentesis is to be done I will hold other causes for the next couple of days. 5 history of underlying coronary artery disease 6 history of chronic hypoxic respiratory failure maintained on home O2 at 2 L nasal cannula 7 history of multiple comorbidities including fibromyalgia hyperlipidemia hypertension colonic polyps coronary artery disease and hypothyroidism and severe peripheral vessel occlusive disease. Recommendation: Continue present treatment plan most to diuretics and bronchodilators, consider discharge planning early next week. Time with Patient: Less than 30
[2017-01-20 11:29] LABS: Glucose,Whole Blood 300 mg/dL (75-99)
--- NOTE | 2017-01-20 15:20 | P.PN ---
Subjective Principal diagnosis: Shortness of breath This is a pleasant 61-year-old female who follows with Dr. Milian in the office. Just a known history of severe COPD on home oxygen, systolic congestive heart failure, chronic atrial fibrillation, PAD with prior stent placement, prior [place], hypertension, hyperlipidemia and recent admission to the hospital with congestive heart failure and associated acute renal failure. She presented to the hospital again on this occasion with symptoms of progressively worsening shortness of breath. She has been on IV Lasix and is diuresing. Apparently patient was recommended to undergo thoracentesis on however became quite anxious and refused the procedure. Upon examination today, patient says her breathing has improved. She denies complaints of chest discomfort, orthopnea, PND or edema. Objective - Vital Signs Vital signs: Vital Signs Temp 97.0 F L 01/20/17 12:00 Pulse 89 01/20/17 12:00 Resp 18 01/20/17 12:00 BP 131/69 01/20/17 12:00 Pulse Ox 92 L 01/20/17 12:00 Intake & Output 01/19/17 01/20/17 01/20/17 18:59 06:59 18:59 Intake Total 1220 800 720 Output Total 500 200 Balance 720 600 720 Weight 70.4 kg Intake: IV 240 100 240 0.9 240 100 240 Oral 980 700 480 Output: Urine 500 200 Other: Voiding Method Bedside Commode Bedside Commode Bedside Commode # Voids 1 # Bowel Movements 1 - Exam PHYSICAL EXAMINATION: HEENT: Head is atraumatic, normocephalic. Pupils equal, round. Neck is supple. There is no elevated jugular venous pressure. HEART EXAMINATION: Heart sounds irregular irregular, S1 and S2 with a systolic murmur. CHEST EXAMINATION: Lungs reveal diminished air entry bilaterally. No chest wall tenderness is noted on palpation or with deep breathing. ABDOMEN: Soft, nontender. Bowel sounds are heard. No organomegaly noted. EXTREMITIES: 1+ peripheral pulses with no evidence of peripheral edema and no calf tenderness noted. NEUROLOGIC patient is awake, alert and oriented x3. . - Labs CBC & Chem 7: 01/15/17 22:40 01/20/17 06:14 Labs: Abnormal Lab Results - Last 24 Hours (Table) 01/19/17 01/19/17 01/20/17 Range/Units 16:29 20:40 06:14 Chloride 94 L (98-107) mmol/L Carbon Dioxide 37 H (22-30) mmol/L BUN 37 H (7-17) mg/dL Glucose 153 H (74-99) mg/dL POC Glucose (mg/dL) 116 H 215 H (75-99) mg/dL 01/20/17 01/20/17 Range/Units 06:22 11:27 Chloride (98-107) mmol/L Carbon Dioxide (22-30) mmol/L BUN (7-17) mg/dL Glucose (74-99) mg/dL POC Glucose (mg/dL) 179 H 300 H (75-99) mg/dL Assessment and Plan Plan: Assessment and plan #1 systolic congestive heart failure, acute on chronic 2 right-sided pleural effusion #3 severe COPD on home oxygen #4 chronic atrial fibrillation #5 CAD #6 hypertension #7 hyperlipidemia #8 hypothyroidism #9 PAD with prior stenting From cardiology standpoint, continue IV Lasix. Monitor renal function, daily weights and intake and output. Further recommendations to follow. 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 Patient was seen and examined.
[2017-01-20 16:21] LABS: Glucose,Whole Blood 125 mg/dL (75-99)
[2017-01-20] MEDS: POTASSIUM CHLORIDE ER 10 MEQ TAB.ER.PRT PO SCH (16:32)
--- NOTE | 2017-01-20 18:05 | PN ---
DATE OF SERVICE: 01/20/2017 PRESENTING COMPLAINT: Tired. INTERVAL HISTORY: This patient presented with atrial flutter fibrillation with rapid ventricular rate and CHF exacerbation. Did not want to have a pleural effusion tapped. Remains on IV Lasix. Tolerating a diet. Pretty much remains in bed. Review of systems done for constitutional, cardiovascular, GI, pulmonary; relevant findings as above. Current medications are reviewed and include IV Solu-Medrol, IV Lasix. On examination, temperature 96.8, pulse 91, respiration 18, blood pressure 109/65, pulse ox 99% on 3 liters. GENERAL APPEARANCE: Lying in bed, tired. EYES: Pupils equal. Conjunctivae normal. NECK: JVD not raised. Mass not palpable. RESPIRATORY: Effort normal. LUNGS: Diminished breath sounds. CARDIOVASCULAR: Heart sounds irregular. Decreased edema. ABDOMEN: Soft, nontender. PSYCHIATRY: Tired, but answering questions. INVESTIGATIONS: BUN 37, creatinine 0.90, bicarb 37. ASSESSMENT: 1. Acute on chronic congestive heart failure from systolic dysfunction; ejection fraction 30 to 35% from underlying coronary artery disease slow to respond on IV Lasix. 2. Atrial flutter fibrillation, rate controlled. Patient had a prior ( ) ablation. 3. Chronic obstructive pulmonary disease with end stage lung disease in an ex-smoker. 4. Right-sided pleural effusion from congestive heart failure slow to respond. 5. Restless leg syndrome. 6. Fibromyalgia. 7. Hyperlipidemia. 8. Essential hypertension. 9. Primary osteoarthritis of multiple joints, bilateral. 10. Chronic hypoxic respiratory failure from chronic obstructive pulmonary disease on 2 liters oxygen at home. 11. Hypothyroidism. 12. Secondary pulmonary hypertension secondary to chronic obstructive pulmonary disease. 13. Severe tricuspid regurgitation, nonrheumatic. 14. Depression, not otherwise specified. 15. Hyponatremia, hypoosmolar, present on admission. 16. Metabolic alkalosis due to volume contraction. Patient has been on steroids and diuresed. 17. Acute hypoxic respiratory failure, present on admission from multiple factors. PLAN: Continue current medication and treatment plan. We will switch over to oral prednisone tomorrow. Encouraged the patient to be out of bed. Overall prognosis remains guarded.
[2017-01-20] MEDS: ATORVASTATIN 80 MG TAB PO SCH (20:02)
[2017-01-20] MEDS: MELATONIN 5 MG TABLET PO PRN (20:43)
[2017-01-20] MEDS: LORazepam 0.5 MG TAB PO PRN (20:43)
[2017-01-20 20:52] LABS: Glucose,Whole Blood 151 mg/dL (75-99)
[2017-01-20] MEDS: IPRATROPIUM-ALBUTEROL 3 ML NEB INHALATION PRN (23:49)
[2017-01-21 06:07] LABS: Glucose,Whole Blood 151 mg/dL (75-99)
[2017-01-21] MEDS: DILTIAZEM ORAL 30 MG TAB PO SCH ×3 (06:17→20:53)
[2017-01-21] MEDS: INSULIN LISPRO (humaLOG) 300 UNIT/3 ML VIAL SQ SCH ×4 (06:17→22:51)
[2017-01-21] MEDS: LEVOTHYROXINE 125 MCG TAB PO SCH (06:17)
[2017-01-21 06:47] LABS: Anisocytosis Slight; CH 31.9; CHCM 29.3; HCT 30.7 % (34.0-46.0); HGB 8.9 gm/dL (11.4-16.0); Hypochromasia Marked; MCH 32.1 pg (25.0-35.0); MCHC 29.1 g/dL (31.0-37.0); MCV 110.1 fL (80.0-100.0); Macrocytosis Marked; Mean Platelet Volume 8.8; Poikilocytosis Slight; RBC 2.78 m/uL (3.80-5.40); RDW 19.8 % (11.5-15.5); WBC 7.9 k/uL (3.8-10.6)
[2017-01-21 07:25] LABS: Anion Gap 9 mmol/L; Blood Urea Nitrogen 35 mg/dL (7-17); Calcium 8.7 mg/dL (8.4-10.2); Carbon Dioxide 37 mmol/L (22-30); Chloride 94 mmol/L (98-107); Glucose 149 mg/dL (74-99); Non-African American GFR(MDRD) >60 (>60 ml/min/1.73 sqM); Potassium 4.1 mmol/L (3.5-5.1); Sodium 140 mmol/L (137-145)
--- NOTE | 2017-01-21 08:11 | XR ---
EXAMINATION TYPE: XR chest 2V DATE OF EXAM: 01/21/2017 6:38 AM COMPARISON: 01/18/2017 HISTORY: Pleural effusion TECHNIQUE: Frontal and lateral views of the chest are obtained. FINDINGS: There is opacification of the right lower hemithorax. Heart is enlarged. There are chest l polo. There is coarse interstitial density in the left mid and lower lung field. IMPRESSION: There is combined right pleural effusion and right lower lobe consolidation. Congestive heart failure. No change compared to yesterday.
[2017-01-21] MEDS: HYDROcodone/APAP 5-325MG 1 EACH TAB PO PRN ×3 (08:21→20:50)
[2017-01-21] MEDS: APIXABAN 5 MG TAB PO SCH (08:21)
[2017-01-21] MEDS: hydrALAZINE HCL 25 MG TAB PO SCH ×4 (08:22→20:53)
[2017-01-21] MEDS: METOPROLOL TARTRATE 50 MG TAB PO SCH ×3 (08:22→17:25)
[2017-01-21] MEDS: FUROSEMIDE 10 MG/ML 4 ML VIAL IV SCH ×2 (08:22→20:52)
[2017-01-21] MEDS: ESCITALOPRAM 10 MG TAB PO SCH (08:22)
[2017-01-21] MEDS: CLOPIDOGREL 75 MG TAB PO SCH (08:22)
[2017-01-21] MEDS: FERROUS SULFATE 325 MG TAB PO SCH ×2 (08:22→20:53)
[2017-01-21] MEDS: predniSONE 20 MG TAB PO SCH (08:22)
[2017-01-21] MEDS: ASPIRIN 81 MG CHEW PO SCH (08:23)
[2017-01-21] MEDS: FAMOTIDINE 20 MG TAB PO SCH (08:23)
[2017-01-21] MEDS: NITROGLYCERIN OINT 1 INCH/GM PACKET TOPICAL SCH ×3 (08:31→17:25)
[2017-01-21] MEDS: BUDESONIDE 0.5 MG/2 ML NEBU INHALATION SCH ×2 (09:30→19:30)
[2017-01-21] MEDS: IPRATROPIUM-ALBUTEROL 3 ML NEB INHALATION SCH ×5 (09:30→19:30)
[2017-01-21] MEDS: FORMOTEROL FUMARATE 20 MCG/2 ML NEBU INHALATION SCH ×2 (09:30→18:51)
--- NOTE | 2017-01-21 11:05 | P.PN ---
Subjective Principal diagnosis: Acute on chronic Congestive heart failure and COPD This is a 61-year-old female familiar to my service, patient is known to have history of severe cardiomyopathy and LV dysfunction, chronic congestive heart failure, underlying COPD, patient was last admitted to the hospital on 12/23/2016 , and she was discharged on 12/29/2016 I saw her during her last admission, and she had mostly a picture of congestive heart failure, atrial fibrillation with RVR, chronic congestive heart failure, chronic LV dysfunction with ejection fraction of 30%, history of COPD, fibromyalgia, restless leg syndrome, hypertension, degenerative joint disease, chronic hypoxic and hypercapnic respiratory failure, hypothyroidism, severe tricuspid regurgitation, depression , and severe metabolic acidosis secondary to volume contraction at the time. Patient has been compliant with her meds however she presented to the ER yesterday with mostly few days history of increased shortness of breath patient has been coughing and the cough is productive with greenish phlegm, no fever no chills no hemoptysis no chest pain. Chest x-ray showed evidence of congestive heart failure and good sized right-sided pleural effusion which was confirmed by a bee using ultrasound and I would likely perform a right-sided thoracentesis on the patient for diagnostic and therapeutic purposes. Presently , the patient denies any headaches no blurred vision no dizziness, no nausea no vomiting no abdominal pain no melena no hematemesis no dysuria frequency no urgency. Patient was reevaluated today on 01/17/2017, and I was planning to perform thoracentesis on this patient because of her pleural effusion, however the patient is quite anxious, in tears, and not to agreeable to proceed with the thoracentesis today. Patient was made aware of 2% risk of pneumothorax or bleeding, and she was even more anxious about the whole procedure. Then I felt it would be best to cancel the procedure and if she changes her mind to have it done down the line, this could be done on outpatient basis by interventional radiology. I held her anticoagulation therapy yesterday hoping to have it done today, but will go ahead and place her back on her medications, continue diuretics, and no plans for thoracentesis today. Patient seems to be feeling better overall and she remains on diuretics and bronchodilators. Reevaluated today on 01/18/2017, patient is doing a bit better, she seems to be more awake, in no distress, chest x-ray continues to show moderate sized right- sided pleural effusion. Patient remains on bronchodilators, diuretics, labs were reviewed potassium is a bit low and it will be corrected as per protocol. Bicarb remains elevated as expected it is 39 today The patient is seen again today 01/19/2017 in follow-up on the selective care unit. She is awake and alert in no acute distress. She states she is breathing easier today as compared to yesterday. She needs increased encouragement regarding cough and deep breathing exercises and increasing her activity. She is maintaining good O2 saturations in the upper 90s on 3 L/m per nasal cannula. Bicarb improved to 35. Patient was reevaluated today on 01/20/2017, doing better breathing easier. Does not seem to be in any form of distress, complaining most of generalized weakness. Labs were reviewed electrolytes are normal BUN is 37 creatinine 0.90 bicarb is 37. Reevaluated on 01/21/2017, patient is basically about the same, states that she is breathing easier. No cough no wheezing no shortness of breath. Labs were reviewed BUN is 35 creatinine is 0.9 bicarb is 37. Hemoglobin is 8.9. Patient remains on Diamox, and now she is on IV Lasix 40 mg IV push every 12 hours. Chest x-ray from today showed worsening right pleural effusion, few days ago the patient declined thoracentesis, I will hold the anticoagulation therapy of this patient for now, and I will arrange for an ultrasound of the chest in the morning, hopefully the patient will agree to undergo right sided thoracentesis, and that could be done either by Dr. Crowley or interventional radiology. I offered the patient to do the thoracentesis myself a few days ago, and she declined. Objective - Vital Signs Vital signs: Vital Signs Temp 97.3 F L 01/21/17 08:00 Pulse 88 01/21/17 09:55 Resp 18 01/21/17 08:00 BP 128/62 01/21/17 08:00 Pulse Ox 91 L 01/21/17 08:00 Intake & Output 01/20/17 01/21/17 01/21/17 18:59 06:59 18:59 Intake Total 820 300 120 Output Total 900 Balance -80 300 120 Weight 69.6 kg Intake: IV 240 100 0.9 240 100 Oral 580 200 120 Output: Urine 900 Other: Voiding Method Bedside Commode Bedside Commode Bedside Commode # Voids 4 2 - Exam GENERAL EXAM: Obese. Alert, comfortable in no apparent distress. HEAD: Normocephalic. EYES: Normal reaction of pupils, equal size. NOSE: Clear with pink turbinates. THROAT: No erythema or exudates. NECK: No masses, no JVD. CHEST: No chest wall deformity. LUNGS: Equal air entry with crackles in the bilateral posterior bases more so on the right lung. Diminished. CVS: S1 and S2 normal , irregular rhythm. ABDOMEN: No hepatosplenomegaly, normal bowel sounds, no guarding or rigidity. Extremities: There is 1-2+ lower extremity peripheral edema. No clubbing, no cyanosis. Peripheral pulses are intact. - Labs CBC & Chem 7: 01/21/17 06:16 01/21/17 06:16 Labs: Abnormal Lab Results - Last 24 Hours (Table) 01/20/17 01/20/17 01/20/17 Range/Units 11:27 16:20 20:51 RBC (3.80-5.40) m/uL Hgb (11.4-16.0) gm/dL Hct (34.0-46.0) % MCV (80.0-100.0) fL MCHC (31.0-37.0) g/dL RDW (11.5-15.5) % Chloride (98-107) mmol/L Carbon Dioxide (22-30) mmol/L BUN (7-17) mg/dL Glucose (74-99) mg/dL POC Glucose (mg/dL) 300 H 125 H 151 H (75-99) mg/dL 01/21/17 01/21/17 01/21/17 Range/Units 06:06 06:16 06:16 RBC 2.78 L (3.80-5.40) m/uL Hgb 8.9 L (11.4-16.0) gm/dL Hct 30.7 L (34.0-46.0) % MCV 110.1 H (80.0-100.0) fL MCHC 29.1 L (31.0-37.0) g/dL RDW 19.8 H (11.5-15.5) % Chloride 94 L (98-107) mmol/L Carbon Dioxide 37 H (22-30) mmol/L BUN 35 H (7-17) mg/dL Glucose 149 H (74-99) mg/dL POC Glucose (mg/dL) 151 H (75-99) mg/dL Assessment and Plan Plan: 1 acute on chronic systolic congestive heart failure secondary to LV dysfunction. 2 right sided pleural effusion felt to be cardiac in nature unless otherwise. Since the patient is not willing to undergo thoracentesis, will continue medications in the form of diuretics, and again the fluid is considered cardiac in nature unless proven otherwise, and that should respond to diuresis. 3 history of underlying COPD presently on bronchodilators. 4 history of cardiac arrhythmia in the form of atrial fibrillation and atrial flutter, patient is presently on a course however if thoracentesis is to be done I will hold other causes for the next couple of days. 5 history of underlying coronary artery disease 6 history of chronic hypoxic respiratory failure maintained on home O2 at 2 L nasal cannula 7 history of multiple comorbidities including fibromyalgia hyperlipidemia hypertension colonic polyps coronary artery disease and hypothyroidism and severe peripheral vessel occlusive disease. Recommendation: Continue present treatment plan most to diuretics and bronchodilators, we will arrange for an ultrasound of the chest to be done tomorrow, I would hold her anticoagulation therapy for now, patient should be approached again about possible thoracentesis again, if she declines, her anti- coagulation is to be resumed if she agrees to have it done, it could either be done by Dr. Crowley or by the interventional radiologist. I have a feeling the patient may change her mind if she realizes that the fluid did not improve much with diuretics. Time with Patient: Less than 30
[2017-01-21 11:49] LABS: Glucose,Whole Blood 243 mg/dL (75-99)
--- NOTE | 2017-01-21 15:03 | P.PN ---
Subjective Principal diagnosis: Shortness of breath This is a pleasant 61-year-old female who follows regularly with Dr. Milian in the office. She has a known history of severe COPD on home oxygen, systolic congestive heart failure, atrial fibrillation, chronic persistent, on Eliquis for anticoagulation, PAD with prior stent placement, prior myocardial infarction, hypertension, hyperlipidemia, and recent admission to the hospital with congestive cardiac failure and associated acute renal failure. She presented to the hospital again on this occasion with symptoms of progressively worsening shortness of breath. She has been on IV Lasix, diuresing. Weight today is down 1 kg, creatinine 0.9. Objective - Vital Signs Vital signs: Vital Signs Temp 97.0 F L 01/21/17 11:12 Pulse 88 01/21/17 13:40 Resp 20 01/21/17 11:14 BP 98/62 01/21/17 11:12 Pulse Ox 91 L 01/21/17 11:12 Intake & Output 01/20/17 01/21/17 01/21/17 18:59 06:59 18:59 Intake Total 820 300 640 Output Total 900 301 Balance -80 300 339 Weight 69.6 kg Intake: IV 240 100 240 0.9 240 100 240 Oral 580 200 400 Output: Urine 900 300 Stool 1 Other: Voiding Method Bedside Commode Bedside Commode Bedside Commode # Voids 4 2 - Exam PHYSICAL EXAMINATION: HEENT: Head is atraumatic, normocephalic. Pupils equal, round. Neck is supple. There is no elevated jugular venous pressure. HEART EXAMINATION: S1 and S2 irregularly irregular systolic murmur is heard. CHEST EXAMINATION: Lungs reveal decreased air exchange with diminished air entry to bilateral bases, right posterior base diminished a quarter to half of the way up. ABDOMEN: Soft, nontender. Bowel sounds are heard. No organomegaly noted. EXTREMITIES: 1+ peripheral pulses with trace evidence of peripheral edema and no calf tenderness noted. NEUROLOGIC patient is awake, alert and oriented -3. . - Labs CBC & Chem 7: 01/21/17 06:16 01/21/17 06:16 Labs: Abnormal Lab Results - Last 24 Hours (Table) 01/20/17 01/20/17 01/21/17 Range/Units 16:20 20:51 06:06 RBC (3.80-5.40) m/uL Hgb (11.4-16.0) gm/dL Hct (34.0-46.0) % MCV (80.0-100.0) fL MCHC (31.0-37.0) g/dL RDW (11.5-15.5) % Chloride (98-107) mmol/L Carbon Dioxide (22-30) mmol/L BUN (7-17) mg/dL Glucose (74-99) mg/dL POC Glucose (mg/dL) 125 H 151 H 151 H (75-99) mg/dL 01/21/17 01/21/17 01/21/17 Range/Units 06:16 06:16 11:33 RBC 2.78 L (3.80-5.40) m/uL Hgb 8.9 L (11.4-16.0) gm/dL Hct 30.7 L (34.0-46.0) % MCV 110.1 H (80.0-100.0) fL MCHC 29.1 L (31.0-37.0) g/dL RDW 19.8 H (11.5-15.5) % Chloride 94 L (98-107) mmol/L Carbon Dioxide 37 H (22-30) mmol/L BUN 35 H (7-17) mg/dL Glucose 149 H (74-99) mg/dL POC Glucose (mg/dL) 243 H (75-99) mg/dL Assessment and Plan Plan: Assessment and plan #1 systolic congestive heart failure acute on chronic #2 right-sided pleural effusion #3 severe COPD on home O2 #4 chronic persistent atrial fibrillation, on Eliquis for anticoagulation. # 5 CAD #6 hypertension #7 hyperlipidemia #8 hypothyroidism #9 PAD with prior stenting Plan We will continue current dose of IV Lasix. We will check lytes BUN and creatinine in the morning. DNP note has been reviewed, I agree with a documented findings and plan of care. Patient was seen and examined.
[2017-01-21 16:38] LABS: Glucose,Whole Blood 134 mg/dL (75-99)
[2017-01-21] MEDS: POTASSIUM CHLORIDE ER 10 MEQ TAB.ER.PRT PO SCH (17:25)
[2017-01-21 20:47] LABS: Glucose,Whole Blood 258 mg/dL (75-99)
[2017-01-21] MEDS: LORazepam 0.5 MG TAB PO PRN (20:52)
[2017-01-21] MEDS: ATORVASTATIN 80 MG TAB PO SCH (20:53)
[2017-01-21] MEDS: MELATONIN 5 MG TABLET PO PRN (22:51)
[2017-01-21] MEDS: IPRATROPIUM-ALBUTEROL 3 ML NEB INHALATION PRN (23:13)
[2017-01-22] MEDS: HYDROcodone/APAP 5-325MG 1 EACH TAB PO PRN ×2 (04:47→12:47)
[2017-01-22] MEDS: LORazepam 0.5 MG TAB PO PRN (04:47)
[2017-01-22] MEDS: IPRATROPIUM-ALBUTEROL 3 ML NEB INHALATION PRN (04:59)
[2017-01-22 05:58] LABS: Glucose,Whole Blood 110 mg/dL (75-99)
[2017-01-22] MEDS: INSULIN LISPRO (humaLOG) 300 UNIT/3 ML VIAL SQ SCH ×3 (06:07→17:23)
[2017-01-22] MEDS: LEVOTHYROXINE 125 MCG TAB PO SCH (06:08)
[2017-01-22] MEDS: DILTIAZEM ORAL 30 MG TAB PO SCH ×2 (06:08→12:49)
--- NOTE | 2017-01-22 08:47 | PN ---
DATE OF SERVICE: 01/21/2017 PRESENTING COMPLAINT: Tired. INTERVAL HISTORY: This patient presented with atrial flutter fibrillation with rapid ventricular rate is now better controlled and CHF exacerbation. Patient also has left pleural effusion. Initially she did not want to have it tapped. Now Eliquis is being held for possibly getting tapped. Patient ate all her breakfast, all her lunch, sat up in a chair. Edema has gone down. Overall feeling much better. Review of systems done for constitutional, cardiovascular, GI, pulmonary; relevant findings as above. Current medications are reviewed and include oral prednisone and IV Lasix 40 q.12. On examination, temperature 97, pulse 100, respirations 20, blood pressure 139/70, pulse ox 92% on 3 L. GENERAL APPEARANCE: Lying in bed, tired -appearing. EYES: Pupils equal. Conjunctivae normal. NECK: JVD not raised. Mass not palpable. RESPIRATORY: Effort normal. LUNGS: Diminished breath sounds. CARDIOVASCULAR: Heart sounds irregular, greatly decreased edema. ABDOMEN: Soft, nontender. Liver and spleen not palpable. PSYCHIATRY: Awake, answering questions appropriately. INVESTIGATIONS: White count 7.9, hemoglobin 8.9. Potassium 4.3, BUN 35, creatinine 0.90. ASSESSMENT: 1. Acute on chronic congestive heart failure from systolic dysfunction; ejection fraction 30% to 35%, underlying coronary artery disease. 2. Atrial flutter/fibrillation, rate ( ) controlled. Patient has a prior history of ablation. 3. Chronic obstructive pulmonary disease, end-stage, in an ex-smoker. 4. Right-sided pleural effusion from congestive heart failure. 5. Restless leg syndrome. 6. Fibromyalgia. 7. Hyperlipidemia. 8. Essential hypertension. 9. ( ). 10. Primary osteoarthritis of multiple joints, bilateral. 11. Chronic hypoxic respiratory failure from chronic obstructive pulmonary disease, on 2 liters oxygen at home. 12. Hypothyroidism. 13. Secondary pulmonary hypertension secondary to severe chronic obstructive pulmonary disease. 14. Severe tricuspid regurgitation, nonrheumatic. 15. Depression, not otherwise specified. 16. Hyponatremia, hypoosmolar, present on admission. 17. Metabolic alkalosis due to volume contraction. Patient on steroids and diuresis. 18. Acute hypoxic respiratory failure, present on admission from multiple problems. PLAN: Tomorrow the patient will have an ultrasound, chest x-ray to see if pleural fluid can be tapped. Overall prognosis guarded. Follow.
--- NOTE | 2017-01-22 08:59 | US ---
EXAMINATION TYPE: US chest DATE OF EXAM: 01/22/2017 8:45 AM COMPARISON: NONE CLINICAL HISTORY: rt pleural effusion. EXAM MEASUREMENTS: Right Pleural Effusion fluid pocket: 2.9 cm Right skin to fluid thickness: 7.1 cm No fluid visualized on left Right side marked for possible thoracentesis outside the dept. Left side NOT marked for possible thoracentesis outside the dept. Pulmonologists are able to review the images in the patient?s EMR. IMPRESSIONS: SMALL RIGHT PLEURAL EFFUSION.
[2017-01-22] MEDS: FORMOTEROL FUMARATE 20 MCG/2 ML NEBU INHALATION SCH (09:03)
[2017-01-22] MEDS: BUDESONIDE 0.5 MG/2 ML NEBU INHALATION SCH (09:03)
[2017-01-22] MEDS: IPRATROPIUM-ALBUTEROL 3 ML NEB INHALATION SCH ×3 (09:03→16:26)
[2017-01-22] MEDS: FUROSEMIDE 10 MG/ML 4 ML VIAL IV SCH (09:33)
[2017-01-22] MEDS: ESCITALOPRAM 10 MG TAB PO SCH (09:34)
[2017-01-22] MEDS: METOPROLOL TARTRATE 50 MG TAB PO SCH ×3 (09:34→17:22)
[2017-01-22] MEDS: ASPIRIN 81 MG CHEW PO SCH (09:34)
[2017-01-22] MEDS: predniSONE 20 MG TAB PO SCH (09:34)
[2017-01-22] MEDS: hydrALAZINE HCL 25 MG TAB PO SCH ×3 (09:34→17:22)
[2017-01-22] MEDS: FAMOTIDINE 20 MG TAB PO SCH (09:34)
[2017-01-22] MEDS: FERROUS SULFATE 325 MG TAB PO SCH (09:34)
[2017-01-22 09:49] VITALS: TEMP 97.1
[2017-01-22 09:54] LABS: Anion Gap 9 mmol/L; Blood Urea Nitrogen 34 mg/dL (7-17); Calcium 8.5 mg/dL (8.4-10.2); Carbon Dioxide 39 mmol/L (22-30); Chloride 92 mmol/L (98-107); Glucose 174 mg/dL (74-99); Non-African American GFR(MDRD) >60 (>60 ml/min/1.73 sqM); Potassium 3.6 mmol/L (3.5-5.1); Sodium 140 mmol/L (137-145)
--- NOTE | 2017-01-22 10:40 | P.PN ---
Subjective Principal diagnosis: Shortness of breath This is a pleasant 61-year-old female who follows regularly with Dr. Milian in the office. She has a known history of severe COPD on home oxygen, systolic congestive heart failure, atrial fibrillation, chronic persistent, on Eliquis for anticoagulation, PAD with prior stent placement, prior myocardial infarction, hypertension, hyperlipidemia, and recent admission to the hospital with congestive cardiac failure and associated acute renal failure. She presented to the hospital again on this occasion with symptoms of progressively worsening shortness of breath. She has been on IV Lasix, diuresing. Creatinine today 0.9. Repeat ultrasound of the chest has been ordered today by pulmonary. Objective - Vital Signs Vital signs: Vital Signs Temp 97.1 F L 01/22/17 09:30 Pulse 70 01/22/17 09:50 Resp 20 01/22/17 09:50 BP 133/80 01/22/17 09:30 Pulse Ox 92 L 01/22/17 09:30 Intake & Output 01/21/17 01/22/17 01/22/17 18:59 06:59 18:59 Intake Total 1038 90 340 Output Total 302 650 Balance 736 -560 340 Weight 70.4 kg Intake: IV 240 90 0.9 240 90 Oral 798 340 Output: Urine 300 650 Stool 2 Other: Voiding Method Bedside Commode Bedside Commode Bedside Commode - Exam PHYSICAL EXAMINATION: HEENT: Head is atraumatic, normocephalic. Pupils equal, round. Neck is supple. There is no elevated jugular venous pressure. HEART EXAMINATION: S1 and S2 irregularly irregular systolic murmur is heard. CHEST EXAMINATION: Lungs reveal decreased air exchange with diminished air entry to bilateral bases, right posterior base diminished a quarter to half of the way up. ABDOMEN: Soft, nontender. Bowel sounds are heard. No organomegaly noted. EXTREMITIES: 1+ peripheral pulses with trace evidence of peripheral edema and no calf tenderness noted. NEUROLOGIC patient is awake, alert and oriented -3. . - Labs CBC & Chem 7: 01/21/17 06:16 01/22/17 09:21 Labs: Abnormal Lab Results - Last 24 Hours (Table) 01/21/17 01/21/17 01/21/17 Range/Units 11:33 16:37 20:45 Chloride (98-107) mmol/L Carbon Dioxide (22-30) mmol/L BUN (7-17) mg/dL Glucose (74-99) mg/dL POC Glucose (mg/dL) 243 H 134 H 258 H (75-99) mg/dL 01/22/17 01/22/17 Range/Units 05:53 09:21 Chloride 92 L (98-107) mmol/L Carbon Dioxide 39 H (22-30) mmol/L BUN 34 H (7-17) mg/dL Glucose 174 H (74-99) mg/dL POC Glucose (mg/dL) 110 H (75-99) mg/dL Assessment and Plan Plan: Assessment and plan #1 systolic congestive heart failure acute on chronic #2 right-sided pleural effusion #3 severe COPD on home O2 #4 chronic persistent atrial fibrillation, on Eliquis for anticoagulation. # 5 CAD #6 hypertension #7 hyperlipidemia #8 hypothyroidism #9 PAD with prior stenting Plan We will continue current dose of IV Lasix. We will check lytes BUN and creatinine in the morning. Repeat ultrasound of the chest today. DNP note has been reviewed, I agree with a documented findings and plan of care. Patient was seen and examined.
[2017-01-22] MEDS ORDERED: POTASSIUM CHLORIDE ER 20 MEQ TAB.ER PO STA (11:35)
[2017-01-22 11:37] LABS: Glucose,Whole Blood 194 mg/dL (75-99)
--- NOTE | 2017-01-22 12:28 | P.PN ---
Subjective Progress note dated 01/22/2017 This is a 61-year-old female who probably will be discharged back to the half-way today. There was some consideration given to a thoracentesis but the fluid was only 2.9 cm by ultrasound. So the patient will not have a thoracentesis performed. Initially she did not want a thoracentesis and apparently one Dr. Montes and Dr. Gonzalez approach her about it, she became very upset and angry and started crying. For that reason that Dr. Saldana decided not to do the procedure. Anyway the patient can be discharged home today. Doesn't appear to be having any distress. The fluid pocket as mentioned above is relatively small. Objective - Vital Signs Vital signs: Vital Signs Temp 97.1 F L 01/22/17 09:30 Pulse 70 01/22/17 09:50 Resp 20 01/22/17 09:50 BP 133/80 01/22/17 09:30 Pulse Ox 92 L 01/22/17 09:30 Intake & Output 01/21/17 01/22/17 01/22/17 18:59 06:59 18:59 Intake Total 1038 90 340 Output Total 302 650 Balance 736 -560 340 Weight 70.4 kg Intake: IV 240 90 0.9 240 90 Oral 798 340 Output: Urine 300 650 Stool 2 Other: Voiding Method Bedside Commode Bedside Commode Bedside Commode - Exam No acute distress, laying flat in bed. Oriented 3. Nasal O2 in place. HEENT examination is grossly unremarkable. She does appear to have some degree of exophthalmus. I wonder whether or not she had Graves' disease. Mucous membranes are moist. Neck supple. Full range of motion. No adenopathy. Cardio vascular examination reveals regular rhythm rate. S1 and S2 normal. No murmur noted. Lungs examination reveals relatively clear breath sounds. No wheezes or rhonchi. No crackles. Abdomen soft bowel sounds are heard. Extremities are intact. - Labs CBC & Chem 7: 01/21/17 06:16 01/22/17 09:21 Labs: Abnormal Lab Results - Last 24 Hours (Table) 01/21/17 01/21/17 01/22/17 Range/Units 16:37 20:45 05:53 Chloride (98-107) mmol/L Carbon Dioxide (22-30) mmol/L BUN (7-17) mg/dL Glucose (74-99) mg/dL POC Glucose (mg/dL) 134 H 258 H 110 H (75-99) mg/dL 01/22/17 01/22/17 Range/Units 09:21 11:36 Chloride 92 L (98-107) mmol/L Carbon Dioxide 39 H (22-30) mmol/L BUN 34 H (7-17) mg/dL Glucose 174 H (74-99) mg/dL POC Glucose (mg/dL) 194 H (75-99) mg/dL Assessment and Plan (1) Pleural effusion Status: Acute (2) Chronic a-fib Status: Acute (3) Atrial fibrillation with RVR Status: Acute (4) Atrial flutter Status: Acute (5) PAD (peripheral artery disease) Status: Acute (6) Pulmonary edema, acute Status: Acute (7) Tachyarrhythmia Status: Acute Plan: plan dated 01/22/2017 The patient can be discharged back to the half-way. The patient's anticoagulation can be resumed. The patient does not need thoracentesis. No respiratory issues at this time. She was also very upset about having the procedure done in the first place. Therefore, the patient can be discharged back to the half-way. No thoracentesis will be performed at this time. We' ll continue to follow. Prognosis is guarded. Time with Patient: Less than 30
[2017-01-22 12:45] VITALS: RESP 18
[2017-01-22] MEDS ORDERED: CLOPIDOGREL 75 MG TAB PO SCH (14:45)
[2017-01-22] MEDS ORDERED: APIXABAN 5 MG TAB PO SCH (16:00)
--- NOTE | 2017-01-22 16:14 | DS ---
DATE OF ADMISSION: 01/16/2017 DATE OF DISCHARGE: 01/22/2017 FINAL DIAGNOSES: 1. Acute on chronic congestive heart failure exacerbation from systolic dysfunction; ejection fraction 30% to 35%, from underlying coronary artery disease. 2. Atrial flutter/fibrillation, rate uncontrolled on presentation, and a prior history of ablation. 3. Acute chronic obstructive pulmonary disease exacerbation, end-stage, in an ex-smoker. 4. Right-sided pleural effusion from congestive heart failure, present on admission. 5. Restless leg syndrome. 6. Fibromyalgia. 7. Essential hypertension. 8. Hyperlipidemia. 9. Primary osteoarthritis of multiple joints, bilateral. 10. Chronic hypoxic respiratory failure from chronic obstructive pulmonary disease, on 2 liters of oxygen at home. 11. Hypothyroidism. 12. Secondary pulmonary hypertension secondary to chronic obstructive pulmonary disease. 13. Severe tricuspid regurgitation, non-rheumatic. 14. Depression not otherwise specified. 15. Hyponatremia, hypo-osmolar, present on admission. 16. Metabolic alkalosis due to volume contraction from steroids and diuresis. 17. Acute hypoxic respiratory failure, present at admission, from congestive heart failure/chronic obstructive pulmonary disease exacerbation. CONSULTATIONS: 1. Dr. Gonzalez from Pulmonary. 2. Dr. Miguel A Singh from Cardiology. HOSPITAL COURSE: This patient presented with COPD exacerbation, CHF exacerbation; EF of 30% to 35%. Also had a pleural effusion. Initially this was going to be tapped, but patient turned it down. Patient continued to diurese. Repeat ultrasound showed small pleural effusion. By the time of discharge, patient's heart rate is better controlled, pulse ox showing 92% on 3 L; up in the hallway with support. Edema has gone down. Patient is tolerating a diet. Care was discussed with the patient in detail. Overall prognosis is guarded. On examination, lungs have decreased breath sounds. CARDIOVASCULAR: Heart sounds irregular. No edema. PSYCHIATRIC: Alert and oriented x3. LABS: Potassium 3.6. BUN 34, creatinine 0.90. Discharge planning more than 35 minutes. In addition, I spoke to Dr. Crowley. DISCHARGE MEDICATIONS: 1. Synthroid 125 mcg a day. 2. Lopressor 50 mg p.o. t.i.d. 3. Xopenex HFA two puffs q.6. 4. Hydralazine 25 mg t.i.d. 5. Aspirin 81 mg at bedtime. 6. Pepcid 20 mg p.o. daily. 7. DuoNeb q.i.d. 8. Melatonin 5 mg at bedtime. 9. Vassar 5 one tablet q.6 p.r.n. 10. Ativan 0.5 mg p.o. q.8 p.r.n. 11. Melatonin 3 mg at bedtime. 12. ProStat supplement 30 mL p.o. daily. 13. Eliquis 5 mg p.o. b.i.d. 14. Lipitor 80 mg p.o. at bedtime. 15. Dulcolax 10 mg rectally daily p.r.n. 16. Pulmicort 0.5 nebulizer b.i.d. 17. Plavix 75 mg p.o. daily. 18. Cardizem 30 mg p.o. t.i.d. 19. Lexapro 10 mg p.o. daily. 20. Iron 325 mg p.o. b.i.d. 21. Perforomist 20 mcg b.i.d. 22. Milk of Magnesia 2400 mg p.o. daily p.r.n. 23. Adult Fleet 133 rectally p.r.n. 24. Potassium 10 mEq daily. 25. Valtrex 500 mg p.o. b.i.d. p.r.n. 26. Lasix 40 mg p.o. b.i.d. 27. DuoNeb q.2 p.r.n. 28. Potassium 20 mEq p.o. daily. 29. Prednisone taper. Follow up with Dr. Lloyd after discharge from [facility]. Follow up with Dr. Camp at [facility] on 01/23/18. DISPOSITION: [facility]. Follow up with Cardiology in one week. Follow up with Pulmonary in one week. Discharge planning more than 35 minutes. Oxygen 2 liters to continue.
[2017-01-22 16:31] LABS: Glucose,Whole Blood 141 mg/dL (75-99)
[2017-01-22 17:01] VITALS: BP 122/75; PULSE 88
[2017-01-22] MEDS: POTASSIUM CHLORIDE ER 10 MEQ TAB.ER.PRT PO SCH (17:23)
== END 2017-01-22 17:56 | DRG 291 ==
LOC: EC 22:28 → SUPCPDRO 22:28 → 6SEL 01-16 00:11
PROVIDERS: ADMIT Hospitalist; ATTEND Hospitalist
DX: I11.0 Hypertensive heart disease with heart failure (principal); J96.21 Acute and chronic respiratory failure with hypoxia; I48.1 Persistent atrial fibrillation; E87.3 Alkalosis; I42.9 Cardiomyopathy, unspecified; E87.1 Hypo-osmolality and hyponatremia; G25.81 Restless legs syndrome; I48.0 Paroxysmal atrial fibrillation; J96.22 Acute and chronic respiratory failure with hypercapnia; I48.92 Unspecified atrial flutter; J44.1 Chronic obstructive pulmonary disease with (acute) exacerbation; I48.2 Chronic atrial fibrillation; I50.23 Acute on chronic systolic (congestive) heart failure; Z99.81 Dependence on supplemental oxygen; I65.23 Occlusion and stenosis of bilateral carotid arteries; I73.9 Peripheral vascular disease, unspecified; T50.1X5A Adverse effect of loop [high-ceiling] diuretics, initial encounter; T38.0X5A Adverse effect of glucocorticoids and synthetic analogues, initial encounter; I36.1 Nonrheumatic tricuspid (valve) insufficiency; I27.2 Other secondary pulmonary hypertension; I25.10 Atherosclerotic heart disease of native coronary artery without angina pectoris; E87.8 Other disorders of electrolyte and fluid balance, not elsewhere classified; E78.5 Hyperlipidemia, unspecified; I25.2 Old myocardial infarction; K21.9 Gastro-esophageal reflux disease without esophagitis; E03.9 Hypothyroidism, unspecified; R74.8 Abnormal levels of other serum enzymes; F32.9 Major depressive disorder, single episode, unspecified; M79.7 Fibromyalgia; M19.91 Primary osteoarthritis, unspecified site; R53.1 Weakness; F40.240 Claustrophobia; F41.9 Anxiety disorder, unspecified; Z79.899 Other long term (current) drug therapy; Z79.82 Long term (current) use of aspirin; Z87.891 Personal history of nicotine dependence; Z79.02 Long term (current) use of antithrombotics/antiplatelets; Z79.01 Long term (current) use of anticoagulants; Z86.010 Personal history of colon polyps; Z82.49 Family history of ischemic heart disease and other diseases of the circulatory system; Z88.1 Allergy status to other antibiotic agents; Z88.8 Allergy status to other drugs, medicaments and biological substances; Z90.49 Acquired absence of other specified parts of digestive tract; Z80.9 Family history of malignant neoplasm, unspecified; Z98.51 Tubal ligation status; Z95.820 Peripheral vascular angioplasty status with implants and grafts; Z79.891 Long term (current) use of opiate analgesic; Z79.51 Long term (current) use of inhaled steroids; Z87.448 Personal history of other diseases of urinary system
CPT/HCPCS: 36415; 71020; 76604; 80048; 80053; 82550; 82553; 83880; 84132; 84484; 85025; 85027; 85610; 85730; 87040; 93005; 94640; 94760

== ENCOUNTER 2017-06-18 15:13 | Inpatient (IN) | payer MEDICARE, OTHER ==
[2017-06-18] MEDS ORDERED: methylPREDNISolone SOD SUCCI 125 MG/2 ML VIAL IV STA (16:22)
[2017-06-18] MEDS ORDERED: IPRATROPIUM-ALBUTEROL 3 ML NEB INHALATION STA (16:22)
--- NOTE | 2017-06-18 16:26 | ED ---
General Adult HPI - General Chief complaint: Shortness of Breath Stated complaint: SOB Time Seen by Provider: 06/18/17 16:14 Source: patient, RN notes reviewed Mode of arrival: wheelchair Limitations: no limitations - History of Present Illness Initial comments: Patient is a pleasant 61-year-old female presenting to the emergency department with difficulty in breathing. Onset of symptoms was a couple of days ago. Mild cough with occasional sputum. Patient did just finish a Z-Zan without improvement of symptoms. Patient does have mild swelling. Patient feels symptoms are similar to previous COPD. - Related Data Home Medications Medication Instructions Recorded Confirmed Levothyroxine Sodium [Synthroid] 125 mcg PO DAILY@0600 05/14/15 06/18/17 Metoprolol Tartrate [Lopressor] 50 mg PO TID@0800,1200,1700 08/02/15 06/18/17 Levalbuterol Tartrate [Xopenex Hfa 2 puff INHALATION RT-Q6H PRN 01/21/16 Inhaler] hydrALAZINE HCL [Apresoline] 25 mg PO TID@0800,1200,1700 03/24/16 06/18/17 Aspirin EC [Ecotrin Low Dose] 81 mg PO HS@209912/14/16 06/18/17 Famotidine [Pepcid] 20 mg PO DAILY@0800 12/14/16 06/18/17 Melatonin 5 mg PO HS PRN 12/14/16 06/18/17 Apixaban [Eliquis] 5 mg PO BID@0800,209901/15/17 06/18/17 Atorvastatin [Lipitor] 80 mg PO HS@209901/15/17 06/18/17 Clopidogrel [Plavix] 75 mg PO DAILY@0800 01/15/17 06/18/17 Ferrous Sulfate [Iron (65 MG 325 mg PO BID@0800,2100 01/15/17 06/18/17 Elemental)] Formoterol Fumarate [Perforomist] 20 mcg INHALATION RT-BID@0800,1700 01/15/17 Budesonide [Pulmicort] 0.5 mg INHALATION RT-BID 06/18/17 06/18/17 Escitalopram [Lexapro] 20 mg PO DAILY 06/18/17 06/18/17 Furosemide [Lasix] 40 mg PO HS 06/18/17 06/18/17 Furosemide [Lasix] 80 mg PO DAILY 06/18/17 06/18/17 HYDROcodone/APAP 7.5-325MG [[place] 1 tab PO Q6HR PRN 06/18/17 06/18/17 7.5-325] Ipratropium-Albuterol Nebulize 3 ml INHALATION RT-BID PRN 06/18/17 06/18/17 [Duoneb 0.5 mg-3 mg/3 ml Soln] Sacubitril/Valsartan [Entresto 97 1 tab PO BID 06/18/17 06/18/17 mg-103 mg Tablet] Previous Rx's Medication Instructions Recorded LORazepam [Ativan] 0.5 mg PO Q8H PRN #20 tab 12/29/16 Potassium Chloride [K-Tab ER] 20 meq PO DAILY #1 tablet.er 01/22/17 Allergies Allergy/AdvReac Type Severity Reaction Status Date / Time ciprofloxacin HCl Allergy Severe Anaphylaxis Verified 06/18/17 17:16 [From Cipro] budesonide [From Symbicort] AdvReac Rapid Verified 06/18/17 17:16 Heart Rate formoterol fumarate AdvReac Rapid Verified 06/18/17 17:16 [From Symbicort] Heart Rate Review of Systems ROS Statement: Those systems with pertinent positive or pertinent negative responses have been documented in the HPI. ROS Other: All systems not noted in ROS Statement are negative. Constitutional: Denies: fever Eyes: Denies: eye pain ENT: Denies: ear pain Respiratory: Reports: cough, dyspnea Cardiovascular: Denies: chest pain Endocrine: Reports: fatigue Gastrointestinal: Denies: abdominal pain Genitourinary: Denies: dysuria Musculoskeletal: Denies: back pain Skin: Denies: rash Neurological: Denies: weakness Past Medical History Past Medical History: Atrial Flutter, Coronary Artery Disease (CAD), Heart Failure, COPD, GERD/Reflux, Hyperlipidemia, Hypertension, Myocardial Infarction ([place]), Osteoarthritis (OA), Syncope, Thyroid Disorder Additional Past Medical History / Comment(s): COPD and the patient is on home O2 at 2 L/m nasal cannula and she has a baseline FEV1 of 30% of predicted and she is a nonsmoker, congestion heart failure with an ejection fraction of 30-35 % along with severe pulmonary hypertension and the right ventricle systolic pressure of 60, history of atrial fibrillation/flutter/atrial tachycardia with previous cardiac ablation, fibromyalgia, hyperlipidemia, hypertension, colonic polyps, previous coronary artery disease and reported history of myocardial infarction, hypothyroidism, degenerative arthritis, nonischemiccardio myopathy , and severe peripheral vascular disease. Last Myocardial Infarction Date:: 2013 History of Any Multi-Drug Resistant Organisms: None Reported Past Surgical History: Bowel Resection, Cardiac Ablation, Section, Heart Catheterization, Tubal Ligation Additional Past Surgical History / Comment(s): Bowel resection, cardiac ablation for atrial flutter, , cardiac catheterization, tubal ligation , stent left leg Past Anesthesia/Blood Transfusion Reactions: Motion Sickness Additional Past Anesthesia/Blood Transfusion Reaction / Comment(s): CLAUSTROPHOBIA Past Psychological History: Anxiety, Depression Smoking Status: Former smoker Past Alcohol Use History: Rare Past Drug Use History: None Reported - Past Family History Mother Family Medical History: Cancer Father Family Medical History: Coronary Artery Disease (CAD) General Exam Limitations: no limitations General appearance: alert, in no apparent distress Head exam: Present: atraumatic Eye exam: Present: normal appearance, PERRL ENT exam: Present: normal oropharynx Neck exam: Present: normal inspection Respiratory exam: Present: wheezes, decreased breath sounds Cardiovascular Exam: Present: tachycardia GI/Abdominal exam: Present: soft. Absent: tenderness Extremities exam: Present: pedal edema (+1 bilateral). Absent: calf tenderness Back exam: Present: normal inspection Neurological exam: Present: alert Psychiatric exam: Present: normal affect, normal mood Skin exam: Present: normal color Course Vital Signs 06/18/17 06/18/17 06/18/17 15:16 15:32 16:26 Temperature 97.0 F L Pulse Rate 136 H 124 H 110 H Respiratory 24 20 18 Rate Blood Pressure 151/91 140/73 O2 Sat by Pulse 77 L 94 L 99 Oximetry 06/18/17 06/18/17 06/18/17 16:33 17:03 17:16 Temperature Pulse Rate 120 H 125 H 129 H Respiratory 20 Rate Blood Pressure 135/88 O2 Sat by Pulse 97 Oximetry 06/18/17 06/18/17 06/18/17 17:42 18:25 18:58 Temperature Pulse Rate 120 H 114 H 114 H Respiratory 18 18 18 Rate Blood Pressure 129/64 134/86 134/86 O2 Sat by Pulse 97 99 98 Oximetry 06/18/17 19:40 Temperature Pulse Rate 120 H Respiratory 18 Rate Blood Pressure 159/99 O2 Sat by Pulse 96 Oximetry EKG Findings - EKG Comments: EKG Findings:: H a fibrillation with a rate of 142. QRS 88. QT 294. QTC 452. Right axis. Septal Q waves. No acute ST change. Medical Decision Making - Medical Decision Making Patient reevaluated and resting comfortably in bed. Patient was updated on results and plan. Case discussed with practitioner Cathie, covering with Dr. lanier, who will admit for Dr. Lloyd. Patient states she has been taking her levothyroxine. Oral potassium will be held. - Lab Data Result diagrams: 06/18/17 16:30 06/18/17 16:30 Lab Results 06/18/17 06/18/17 06/18/17 Range/Units 16:30 16:30 16:30 WBC 7.7 (3.8-10.6) k/uL RBC 4.08 (3.80-5.40) m/uL Hgb 13.5 (11.4-16.0) gm/dL Hct 41.4 (34.0-46.0) % MCV 101.5 H (80.0-100.0) fL MCH 33.0 (25.0-35.0) pg MCHC 32.5 (31.0-37.0) g/dL RDW 17.7 H (11.5-15.5) % Plt Count 224 (150-450) k/uL Neutrophils % 71 % Lymphocytes % 17 % Monocytes % 7 % Eosinophils % 1 % Basophils % 1 % Neutrophils # 5.5 (1.3-7.7) k/uL Lymphocytes # 1.3 (1.0-4.8) k/uL Monocytes # 0.6 (0-1.0) k/uL Eosinophils # 0.1 (0-0.7) k/uL Basophils # 0.1 (0-0.2) k/uL Hypochromasia Slight Anisocytosis Slight Macrocytosis Moderate PT (9.0-12.0) sec INR (<1.2) APTT (22.0-30.0) sec Sodium 128 L (137-145) mmol/L Potassium 6.2 H* (3.5-5.1) mmol/L Chloride 86 L (98-107) mmol/L Carbon Dioxide 34 H (22-30) mmol/L Anion Gap 8 mmol/L BUN 33 H (7-17) mg/dL Creatinine 1.00 (0.52-1.04) mg/dL Est GFR (MDRD) Af Amer >60 (>60 ml/min/1.73 sqM) Est GFR (MDRD) Non-Af 56 (>60 ml/min/1.73 sqM) Glucose 131 H (74-99) mg/dL Calcium 9.2 (8.4-10.2) mg/dL Magnesium 1.8 (1.6-2.3) mg/dL Total Bilirubin 1.1 (0.2-1.3) mg/dL AST 35 (14-36) U/L ALT 34 (9-52) U/L Alkaline Phosphatase 74 (38-126) U/L Total Creatine Kinase 106 (30-135) U/L CK-MB (CK-2) 4.1 H* (0.0-2.4) ng/mL CK-MB (CK-2) Rel Index 3.9 Troponin I 0.012 (0.000-0.034) ng/mL NT-Pro-B Natriuret Pep pg/mL Total Protein 6.6 (6.3-8.2) g/dL Albumin 4.1 (3.5-5.0) g/dL TSH 41.000 H (0.465-4.680) mIU/L Free T4 0.38 L (0.78-2.19) ng/dL Free T3 pg/mL 1.5 L (2.8-5.3) pg/ml 06/18/17 06/18/17 Range/Units 16:30 16:30 WBC (3.8-10.6) k/uL RBC (3.80-5.40) m/uL Hgb (11.4-16.0) gm/dL Hct (34.0-46.0) % MCV (80.0-100.0) fL MCH (25.0-35.0) pg MCHC (31.0-37.0) g/dL RDW (11.5-15.5) % Plt Count (150-450) k/uL Neutrophils % % Lymphocytes % % Monocytes % % Eosinophils % % Basophils % % Neutrophils # (1.3-7.7) k/uL Lymphocytes # (1.0-4.8) k/uL Monocytes # (0-1.0) k/uL Eosinophils # (0-0.7) k/uL Basophils # (0-0.2) k/uL Hypochromasia Anisocytosis Macrocytosis PT 12.7 H (9.0-12.0) sec INR 1.3 H (<1.2) APTT 27.5 (22.0-30.0) sec Sodium (137-145) mmol/L Potassium (3.5-5.1) mmol/L Chloride (98-107) mmol/L Carbon Dioxide (22-30) mmol/L Anion Gap mmol/L BUN (7-17) mg/dL Creatinine (0.52-1.04) mg/dL Est GFR (MDRD) Af Amer (>60 ml/min/1.73 sqM) Est GFR (MDRD) Non-Af (>60 ml/min/1.73 sqM) Glucose (74-99) mg/dL Calcium (8.4-10.2) mg/dL Magnesium (1.6-2.3) mg/dL Total Bilirubin (0.2-1.3) mg/dL AST (14-36) U/L ALT (9-52) U/L Alkaline Phosphatase (38-126) U/L Total Creatine Kinase (30-135) U/L CK-MB (CK-2) (0.0-2.4) ng/mL CK-MB (CK-2) Rel Index Troponin I (0.000-0.034) ng/mL NT-Pro-B Natriuret Pep 9860 pg/mL Total Protein (6.3-8.2) g/dL Albumin (3.5-5.0) g/dL TSH (0.465-4.680) mIU/L Free T4 (0.78-2.19) ng/dL Free T3 pg/mL (2.8-5.3) pg/ml - Radiology Data Radiology results: image reviewed (Chest x-ray does show cardiomegaly and mild venous congestion. Possible nodule versus nipple shadow.) Disposition Clinical Impression: COPD exacerbation, Congestive heart failure, Hypothyroidism Disposition: ADMITTED IP TO THIS HOSP Condition: Serious Referrals: George Lloyd DO [Primary Care Provider] - 1-2 days Decision Time: 20:14
[2017-06-18 16:48] LABS: Anisocytosis Slight; Basophils # (A) 0.1 k/uL (0-0.2); Basophils % (A) 1 %; CHCM 31.7; Eosinophils # (A) 0.1 k/uL (0-0.7); Eosinophils % (A) 1 %; HCT 41.4 % (34.0-46.0); HDW 2.83; HGB 13.5 gm/dL (11.4-16.0); Hypochromasia Slight; Luc # (Auto) 0.26; Luc % (Auto) 3; Lymphocytes # (A) 1.3 k/uL (1.0-4.8); Lymphocytes % (A) 17 %; MCHC 32.5 g/dL (31.0-37.0); MCV 101.5 fL (80.0-100.0); Macrocytosis Moderate; Monocytes # (A) 0.6 k/uL (0-1.0); Monocytes % (A) 7 %; Neutrophils # (A) 5.5 k/uL (1.3-7.7); Neutrophils % (A) 71 %; RBC 4.08 m/uL (3.80-5.40); RDW 17.7 % (11.5-15.5); WBC 7.7 k/uL (3.8-10.6)
[2017-06-18 16:53] LABS: INR 1.3 (<1.2); Partial Thromboplastin Time 27.5 sec (22.0-30.0); Prothrombin Time 12.7 sec (9.0-12.0)
--- NOTE | 2017-06-18 16:56 | XR ---
EXAMINATION TYPE: XR chest 2V DATE OF EXAM: 06/18/2017 COMPARISON: 01/21/2017 TECHNIQUE: PA and lateral views submitted. HISTORY: Difficulty breathing FINDINGS: The lungs are clear and there is no pneumothorax, pleural effusion, or focal pneumonia. Heart is ma rkedly enlarged and there is atherosclerotic change aorta. Nodule at the left lung base likely relate d to nipple shadow. Degenerative change of the spine. Mild central interstitial prominence. Mild apic al pleural thickening. Hyperinflation suggests COPD. Extensive vascular calcifications of the aorta and subclavian, and axillary vasculature. IMPRESSION: 1. Cardiomegaly. Correlate for mild venous congestion. 2. Nodule left lung base likely related to nipple shadow can be followed with short-term chest x-ray for confirmation with nipple markers.
[2017-06-18 16:59] LABS: ALT 34 U/L (9-52); AST 35 U/L (14-36); Alkaline Phosphatase 74 U/L (38-126); Blood Urea Nitrogen 33 mg/dL (7-17); Calcium 9.2 mg/dL (8.4-10.2); Carbon Dioxide 34 mmol/L (22-30); Glucose 131 mg/dL (74-99); Magnesium 1.8 mg/dL (1.6-2.3); Non-African American GFR(MDRD) 56 (>60 ml/min/1.73 sqM); Sodium 128 mmol/L (137-145); Total Bilirubin 1.1 mg/dL (0.2-1.3); Total Protein 6.6 g/dL (6.3-8.2)
[2017-06-18 17:04] LABS: Anion Gap 8 mmol/L; Chloride 86 mmol/L (98-107)
[2017-06-18 17:10] LABS: Potassium 6.2 mmol/L (3.5-5.1)
[2017-06-18 17:20] LABS: Troponin I 0.012 ng/mL (0.000-0.034)
[2017-06-18] MEDS ORDERED: FUROSEMIDE 10 MG/ML 4 ML VIAL IV STA (17:28)
[2017-06-18 17:29] LABS: Creatine Kinase MB 4.1 ng/mL (0.0-2.4)
[2017-06-18] MEDS ORDERED: LEVOTHYROXINE 125 MCG TAB PO SCH (18:58)
[2017-06-18] MEDS ORDERED: LEVOTHYROXINE 125 MCG TAB PO STA (19:50)
[2017-06-18] MEDS ORDERED: ASPIRIN 325 MG TAB PO STA (20:15)
[2017-06-18] MEDS ORDERED: IPRATROPIUM-ALBUTEROL 3 ML NEB INHALATION PRN ×2 (20:15→21:48)
[2017-06-18] MEDS ORDERED: HYDROcodone/APAP 7.5-325MG 1 EACH TAB PO ONE (21:37)
[2017-06-18] MEDS ORDERED: MELATONIN 5 MG TABLET PO PRN (21:48)
[2017-06-18] MEDS: ATORVASTATIN 80 MG TAB PO SCH (21:53)
[2017-06-18] MEDS: APIXABAN 5 MG TAB PO SCH (22:42)
[2017-06-19] MEDS: methylPREDNISolone SOD SUCCI 125 MG/2 ML VIAL IV SCH ×3 (00:56→13:00)
[2017-06-19] MEDS: FUROSEMIDE 10 MG/ML 4 ML VIAL IV SCH ×5 (00:56→23:22)
[2017-06-19 06:14] LABS: Glucose,Whole Blood 147 mg/dL (75-99)
[2017-06-19] MEDS: LEVOTHYROXINE 125 MCG TAB PO SCH (06:32)
[2017-06-19] MEDS: INSULIN LISPRO (humaLOG) 300 UNIT/3 ML VIAL SQ SCH ×4 (06:32→21:22)
[2017-06-19] MEDS: METOPROLOL TARTRATE 50 MG TAB PO SCH ×3 (08:00→17:41)
[2017-06-19] MEDS: ASPIRIN 325 MG TAB PO SCH ×2 (08:00→13:31)
[2017-06-19] MEDS: FERROUS SULFATE 325 MG TAB PO SCH ×2 (08:01→21:25)
[2017-06-19] MEDS: hydrALAZINE HCL 25 MG TAB PO SCH ×3 (08:01→17:43)
[2017-06-19] MEDS: APIXABAN 5 MG TAB PO SCH ×2 (08:01→21:22)
[2017-06-19] MEDS: FAMOTIDINE 20 MG TAB PO SCH (08:01)
[2017-06-19] MEDS: CLOPIDOGREL 75 MG TAB PO SCH (08:02)
[2017-06-19] MEDS: ESCITALOPRAM 20 MG TAB PO SCH (08:03)
[2017-06-19] MEDS: SACUBITRIL/VALSARTAN 97 MG-103 MG TABLET PO SCH ×2 (08:12→21:22)
[2017-06-19] MEDS: HYDROcodone/APAP 7.5-325MG 1 EACH TAB PO PRN ×2 (08:30→19:47)
[2017-06-19] MEDS: BUDESONIDE 0.5 MG/2 ML NEBU INHALATION SCH ×2 (08:30→20:06)
[2017-06-19] MEDS: IPRATROPIUM-ALBUTEROL 3 ML NEB INHALATION SCH ×4 (08:30→20:06)
[2017-06-19] MEDS: FORMOTEROL FUMARATE 20 MCG/2 ML NEBU INHALATION SCH ×2 (08:30→20:06)
[2017-06-19] MEDS ORDERED: POTASSIUM CHLORIDE ER 20 MEQ TAB.ER PO SCH (09:00)
[2017-06-19] MEDS ORDERED: ENOXAPARIN 40 MG/0.4 ML SYRINGE SQ SCH (09:00)
[2017-06-19] MEDS ORDERED: FUROSEMIDE 80 MG TAB PO SCH ×2 (09:00→21:00)
[2017-06-19 09:10] LABS: Hemoglobin A1C 6.3 % (4.2-6.1)
[2017-06-19 11:49] LABS: Glucose,Whole Blood 171 mg/dL (75-99)
--- NOTE | 2017-06-19 12:40 | P.CNPUL ---
History of Present Illness Consult date: 06/19/17 Requesting physician: Iglesia Ramos Reason for consult: dyspnea Chief complaint: Shortness of breath, cough, congestion History of present illness: This is a pleasant 61-year-old female patient follows with Dr. Lloyd as her primary care physician. She has a history of atrial flutter/fibrillation with previous ablation anticoagulated with apixaban, coronary artery disease, congestive heart failure with an ejection fraction of 30-35%, severe pulmonary hypertension with an RVSP of 60 mmHg severe peripheral vascular disease,, gastroesophageal reflux disease, hyperlipidemia, hypertension, hypothyroidism. She also has a history of chronic obstructive pulmonary disease and is chronically on home oxygen at 2 L/m per nasal cannula. Her FEV1 value is 30% of predicted. She is a former smoker. She is on DuoNebs along with Pulmicort and Perforomist inhalations in the outpatient setting. She presented here to the emergency room yesterday with complaints of increasing shortness of breath, cough and congestion. She was treated with a Z-Zan in the outpatient setting without much improvement. Her chest x-ray shows evidence of cardiomegaly with mild venous congestion. Lab results show no leukocytosis. Hemoglobin stable. Her sodium was low at 128 and a potassium high at 6.2. She was also found to be quite hypothyroid with a TSH of 41 and a free T4 of 0.38, free T3 1 0.5. Review of Systems 14 point review of system was conducted. All negative other than as mentioned in the HPI. Past Medical History Past Medical History: Atrial Flutter, Coronary Artery Disease (CAD), Heart Failure, COPD, GERD/Reflux, Hyperlipidemia, Hypertension, Myocardial Infarction ([place]), Osteoarthritis (OA), Syncope, Thyroid Disorder Additional Past Medical History / Comment(s): COPD and the patient is on home O2 at 2 L/m nasal cannula and she has a baseline FEV1 of 30% of predicted and she is a nonsmoker, congestion heart failure with an ejection fraction of 30-35 % along with severe pulmonary hypertension and the right ventricle systolic pressure of 60, history of atrial fibrillation/flutter/atrial tachycardia with previous cardiac ablation, fibromyalgia, hyperlipidemia, hypertension, colonic polyps, previous coronary artery disease and reported history of myocardial infarction, hypothyroidism, degenerative arthritis, nonischemiccardio myopathy , and severe peripheral vascular disease. Last Myocardial Infarction Date:: 2013 History of Any Multi-Drug Resistant Organisms: None Reported Past Surgical History: Bowel Resection, Cardiac Ablation, Section, Heart Catheterization, Tubal Ligation Additional Past Surgical History / Comment(s): Bowel resection, cardiac ablation for atrial flutter, , cardiac catheterization, tubal ligation , stent left leg Past Anesthesia/Blood Transfusion Reactions: Motion Sickness Additional Past Anesthesia/Blood Transfusion Reaction / Comment(s): CLAUSTROPHOBIA Smoking Status: Former smoker - Past Family History Mother Family Medical History: Cancer Father Family Medical History: Coronary Artery Disease (CAD) Medications and Allergies Home Medications Medication Instructions Recorded Confirmed Type Levothyroxine Sodium [Synthroid] 125 mcg PO DAILY@0600 05/14/15 06/18/17 History Metoprolol Tartrate [Lopressor] 50 mg PO TID@0800,1200,1700 08/02/15 06/18/17 History Levalbuterol Tartrate [Xopenex Hfa 2 puff INHALATION RT-Q6H PRN 01/21/16 History Inhaler] hydrALAZINE HCL [Apresoline] 25 mg PO TID@0800,1200,1700 03/24/16 06/18/17 History Aspirin EC [Ecotrin Low Dose] 81 mg PO HS@209912/14/16 06/18/17 History Famotidine [Pepcid] 20 mg PO DAILY@0800 12/14/16 06/18/17 History Melatonin 5 mg PO HS PRN 12/14/16 06/18/17 History Apixaban [Eliquis] 5 mg PO BID@0800,209901/15/17 06/18/17 History Atorvastatin [Lipitor] 80 mg PO HS@209901/15/17 06/18/17 History Clopidogrel [Plavix] 75 mg PO DAILY@0800 01/15/17 06/18/17 History Ferrous Sulfate [Iron (65 MG 325 mg PO BID@0800,209901/15/17 06/18/17 History Elemental)] Formoterol Fumarate [Perforomist] 20 mcg INHALATION RT-BID@0800,1700 01/15/17 History Budesonide [Pulmicort] 0.5 mg INHALATION RT-BID 06/18/17 06/18/17 History Escitalopram [Lexapro] 20 mg PO DAILY 06/18/17 06/18/17 History Furosemide [Lasix] 40 mg PO HS 06/18/17 06/18/17 History Furosemide [Lasix] 80 mg PO DAILY 06/18/17 06/18/17 History HYDROcodone/APAP 7.5-325MG [[place] 1 tab PO Q6HR PRN 06/18/17 06/18/17 History 7.5-325] Ipratropium-Albuterol Nebulize 3 ml INHALATION RT-BID PRN 06/18/17 06/18/17 History [Duoneb 0.5 mg-3 mg/3 ml Soln] Sacubitril/Valsartan [Entresto 97 1 tab PO BID 06/18/17 06/18/17 History mg-103 mg Tablet] Allergies Allergy/AdvReac Type Severity Reaction Status Date / Time ciprofloxacin HCl Allergy Severe Anaphylaxis Verified 06/19/17 00:56 [From Cipro] budesonide [From Symbicort] AdvReac Rapid Verified 06/19/17 00:56 Heart Rate formoterol fumarate AdvReac Rapid Verified 06/19/17 00:56 [From Symbicort] Heart Rate Physical Exam Vitals: Vital Signs Temp Pulse Pulse Resp BP BP Pulse Ox 06/19/17 11:48 112 H 06/19/17 11:36 116 H 06/19/17 09:05 108 H 06/19/17 08:47 112 H 06/19/17 08:45 112 H 06/19/17 08:30 112 H 06/19/17 08:00 97 F L 113 H 19 121/72 95 06/19/17 04:00 98.4 F 106 H 18 124/88 96 06/19/17 00:00 98.2 F 129 H 18 125/77 93 L 06/18/17 22:47 120 H 18 110/67 96 06/18/17 21:55 84 18 121/89 97 06/18/17 21:39 122 H 18 142/90 100 06/18/17 20:58 120 H 06/18/17 20:48 112 H 06/18/17 20:15 97.1 F L 112 H 20 150/90 97 06/18/17 19:40 120 H 18 159/99 96 06/18/17 18:58 114 H 18 134/86 98 06/18/17 18:25 114 H 18 134/86 99 06/18/17 17:42 120 H 18 129/64 97 06/18/17 17:16 129 H 06/18/17 17:03 125 H 06/18/17 16:33 120 H 20 135/88 97 06/18/17 16:26 110 H 18 140/73 99 06/18/17 15:32 124 H 20 151/91 94 L 06/18/17 15:16 97.0 F L 136 H 24 77 L Intake and Output 06/18/17 06/19/17 06/19/17 22:59 06:59 14:59 Intake Total 120 Balance 120 Intake: Oral 120 Other: Voiding Method Toilet # Voids 1 1 Weight 73.028 kg 74 kg GENERAL EXAM: Obese. 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 Alert, comfortable in no apparent distress. HEAD: Normocephalic. EYES: Normal reaction of pupils, equal size. NOSE: Clear with pink turbinates. THROAT: No erythema or exudates. NECK: No masses, no JVD. CHEST: No chest wall deformity. LUNGS: Equal air entry with crackles in the bilateral posterior bases. CVS: S1 and S2 normal with no audible murmurs, regular rhythm. ABDOMEN: No hepatosplenomegaly, normal bowel sounds, no guarding or rigidity. Extremities: There is trace peripheral edema. No clubbing, no cyanosis. Peripheral pulses are intact. Results - Laboratory Findings CBC and BMP: 06/18/17 16:30 06/18/17 16:30 PT/INR, D-dimer PT 12.7 sec (9.0-12.0) H 06/18/17 16:30 INR 1.3 (<1.2) H 06/18/17 16:30 Abnormal lab findings: Abnormal Labs 06/18/17 06/18/17 06/18/17 16:30 16:30 16:30 MCV 101.5 H RDW 17.7 H PT INR Sodium 128 L Potassium 6.2 H* Chloride 86 L Carbon Dioxide 34 H BUN 33 H Glucose 131 H POC Glucose (mg/dL) Hemoglobin A1c CK-MB (CK-2) 4.1 H* TSH 41.000 H Free T4 0.38 L Free T3 pg/mL 1.5 L 0806/18/17 06/19/17 16:30 16:30 06:12 MCV RDW PT 12.7 H INR 1.3 H Sodium Potassium Chloride Carbon Dioxide BUN Glucose POC Glucose (mg/dL) 147 H Hemoglobin A1c 6.3 H CK-MB (CK-2) TSH Free T4 Free T3 pg/mL 06/19/17 11:38 MCV RDW PT INR Sodium Potassium Chloride Carbon Dioxide BUN Glucose POC Glucose (mg/dL) 171 H Hemoglobin A1c CK-MB (CK-2) TSH Free T4 Free T3 pg/mL - Diagnostic Findings Chest x-ray: image reviewed Assessment and Plan Plan: Impression: #1 Acute exacerbation of chronic obstructive pulmonary disease in a patient with a known history of severe COPD, oxygen dependent, FEV1 value 30% of predicted. #2 Acute exacerbation of chronic systolic congestive heart failure with previous ejection fraction 30%. #3 Severe pulmonary hypertension. #4 Chronic atrial fibrillation with rapid ventricular response at times. History of previous ablation. Anticoagulated with apixaban. #5 Restless leg syndrome. #6 Hypothyroidism. #7 Fibromyalgia. #8 Hyperlipidemia. #9 Hypertension. #10 Degenerative arthritis. #11 Poor overall functional performance secondary to the above-mentioned multiple comorbidities. Plan: The patient was seen and evaluated by Dr. Crowley. Her x-ray and labs were reviewed. We'll go ahead and treat her for her COPD exacerbation. She'll remain on DuoNeb inhalations 4 times a day and when necessary, Perforomist and Pulmicort inhalations twice a day, IV Solu-Medrol 60 mg every 6 hours. She also remain on diuretics. Her Synthroid will need to be adjusted. She remains anticoagulated with the Paxil band. She is on Pepcid for GI prophylaxis. We' ll continue to follow and make further recommendations based on her clinical status. Time with Patient: Greater than 30
--- NOTE | 2017-06-19 14:03 | P.CRDCN ---
<Marie Manning E - Last Filed: 06/19/17 12:39> History of Present Illness Consult date: 06/19/17 Requesting physician: Iglesia Ramos Consult reason: atrial fibrillation, shortness of breath Chief complaint: Shortness of breath History of present illness: This is a 61-year-old female who follows regularly with Dr. Milian in the office. She has a known history of nonischemic cardiomyopathy, atrial fibrillation, hypertension, PAD with prior iliac stenting, prior arthrectomy of the right SFA, history of prior atrial flutter ablation, nicotine dependence, COPD on home O2, moderate coronary artery disease by cardiac catheterization, hypothyroidism, who presents to the hospital with symptoms of progressively worsening shortness of breath. She states that approximately 4 days ago she noticed herself to be getting more short of breath and feeling like she was coming down with something. Her physician started her on Zithromax and in spite of that she continued to feel worse. She does have a visiting nurse come to the home who recommended that she come to the emergency room for further evaluation. Blood pressure on arrival here 150/90, heart rate in the 130s, 77 % on 3 L of oxygen. Blood pressure this morning 120/70. White blood cell count 7.7, hemoglobin 13.5, platelet count 224. Sodium 128, potassium 6.2, BUN 33, creatinine 1.0. BNP level 9860. TSH 41, free T4 0.38, free T3 1 0.5. EKG on arrival here showed atrial fibrillation with a rapid ventricular response. Chest x-ray showed cardiomegaly and mild venous congestion. Nodule at the left lung base likely related to a nipple shadow. Patient has been initiated on IV antibiotics, and has also been given a dose of IV Solu-Medrol. It appears also that the patient has been initiated on IV Lasix. At the time of my examination , patient states she is already feeling somewhat better this morning. Past Medical History Past Medical History: Atrial Flutter, Coronary Artery Disease (CAD), Heart Failure, COPD, GERD/Reflux, Hyperlipidemia, Hypertension, Myocardial Infarction (ME), Osteoarthritis (OA), Syncope, Thyroid Disorder Additional Past Medical History / Comment(s): COPD and the patient is on home O2 at 2 L/m nasal cannula and she has a baseline FEV1 of 30% of predicted and she is a nonsmoker, congestion heart failure with an ejection fraction of 30-35 % along with severe pulmonary hypertension and the right ventricle systolic pressure of 60, history of atrial fibrillation/flutter/atrial tachycardia with previous cardiac ablation, fibromyalgia, hyperlipidemia, hypertension, colonic polyps, previous coronary artery disease and reported history of myocardial infarction, hypothyroidism, degenerative arthritis, nonischemiccardio myopathy , and severe peripheral vascular disease. Last Myocardial Infarction Date:: 2013 History of Any Multi-Drug Resistant Organisms: None Reported Past Surgical History: Bowel Resection, Cardiac Ablation, Section, Heart Catheterization, Tubal Ligation Additional Past Surgical History / Comment(s): Bowel resection, cardiac ablation for atrial flutter, , cardiac catheterization, tubal ligation , stent left leg Past Anesthesia/Blood Transfusion Reactions: Motion Sickness Additional Past Anesthesia/Blood Transfusion Reaction / Comment(s): CLAUSTROPHOBIA Smoking Status: Former smoker - Past Family History Mother Family Medical History: Cancer Father Family Medical History: Coronary Artery Disease (CAD) Medications and Allergies Home Medications Medication Instructions Recorded Confirmed Type Levothyroxine Sodium [Synthroid] 125 mcg PO DAILY@0600 05/14/15 06/18/17 History Metoprolol Tartrate [Lopressor] 50 mg PO TID@0800,1200,1700 08/02/15 06/18/17 History Levalbuterol Tartrate [Xopenex Hfa 2 puff INHALATION RT-Q6H PRN 01/21/16 History Inhaler] hydrALAZINE HCL [Apresoline] 25 mg PO TID@0800,1200,1700 03/24/16 06/18/17 History Aspirin EC [Ecotrin Low Dose] 81 mg PO HS@209912/14/16 06/18/17 History Famotidine [Pepcid] 20 mg PO DAILY@0800 12/14/16 06/18/17 History Melatonin 5 mg PO HS PRN 12/14/16 06/18/17 History Apixaban [Eliquis] 5 mg PO BID@0800,209901/15/17 06/18/17 History Atorvastatin [Lipitor] 80 mg PO HS@209901/15/17 06/18/17 History Clopidogrel [Plavix] 75 mg PO DAILY@0800 01/15/17 06/18/17 History Ferrous Sulfate [Iron (65 MG 325 mg PO BID@0800,2100 01/15/17 06/18/17 History Elemental)] Formoterol Fumarate [Perforomist] 20 mcg INHALATION RT-BID@0800,1700 01/15/17 History Budesonide [Pulmicort] 0.5 mg INHALATION RT-BID 06/18/17 06/18/17 History Escitalopram [Lexapro] 20 mg PO DAILY 06/18/17 06/18/17 History Furosemide [Lasix] 40 mg PO HS 06/18/17 06/18/17 History Furosemide [Lasix] 80 mg PO DAILY 06/18/17 06/18/17 History HYDROcodone/APAP 7.5-325MG [[place] 1 tab PO Q6HR PRN 06/18/17 06/18/17 History 7.5-325] Ipratropium-Albuterol Nebulize 3 ml INHALATION RT-BID PRN 06/18/17 06/18/17 History [Duoneb 0.5 mg-3 mg/3 ml Soln] Sacubitril/Valsartan [Entresto 97 1 tab PO BID 06/18/17 06/18/17 History mg-103 mg Tablet] Allergies Allergy/AdvReac Type Severity Reaction Status Date / Time ciprofloxacin HCl Allergy Severe Anaphylaxis Verified 06/19/17 00:56 [From Cipro] budesonide [From Symbicort] AdvReac Rapid Verified 06/19/17 00:56 Heart Rate formoterol fumarate AdvReac Rapid Verified 06/19/17 00:56 [From Symbicort] Heart Rate Physical Exam Vitals: Vital Signs Temp Pulse Pulse Resp BP BP Pulse Ox 06/19/17 11:48 112 H 06/19/17 11:36 116 H 06/19/17 09:05 108 H 06/19/17 08:47 112 H 06/19/17 08:45 112 H 06/19/17 08:30 112 H 06/19/17 08:00 97 F L 113 H 19 121/72 95 06/19/17 04:00 98.4 F 106 H 18 124/88 96 06/19/17 00:00 98.2 F 129 H 18 125/77 93 L 06/18/17 22:47 120 H 18 110/67 96 06/18/17 21:55 84 18 121/89 97 06/18/17 21:39 122 H 18 142/90 100 06/18/17 20:58 120 H 06/18/17 20:48 112 H 06/18/17 20:15 97.1 F L 112 H 20 150/90 97 06/18/17 19:40 120 H 18 159/99 96 06/18/17 18:58 114 H 18 134/86 98 06/18/17 18:25 114 H 18 134/86 99 06/18/17 17:42 120 H 18 129/64 97 06/18/17 17:16 129 H 06/18/17 17:03 125 H 06/18/17 16:33 120 H 20 135/88 97 06/18/17 16:26 110 H 18 140/73 99 06/18/17 15:32 124 H 20 151/91 94 L 06/18/17 15:16 97.0 F L 136 H 24 77 L Intake and Output 06/18/17 06/19/17 06/19/17 22:59 06:59 14:59 Intake Total 120 Balance 120 Intake: Oral 120 Other: Voiding Method Toilet # Voids 1 1 Weight 73.028 kg 74 kg PHYSICAL EXAMINATION: HEENT: Head is atraumatic, normocephalic. Pupils equal, round. Neck is supple. There is no elevated jugular venous pressure. HEART EXAMINATION: Heart S1 and S2 irregularly irregular systolic murmur is heard. CHEST EXAMINATION: Lungs reveal decreased air exchange throughout with fine expiratory wheezing throughout. ABDOMEN: Soft, nontender. Bowel sounds are heard. No organomegaly noted. EXTREMITIES: 1+ peripheral pulses with no evidence of peripheral edema and no calf tenderness noted. NEUROLOGIC patient is awake, alert and oriented -3. . Results 06/18/17 16:30 06/18/17 16:30 Cardiac Enzymes 06/18/17 06/18/17 Range/Units 16:30 16:30 AST 35 (14-36) U/L CK-MB (CK-2) 4.1 H* (0.0-2.4) ng/mL Troponin I 0.012 (0.000-0.034) ng/mL Coagulation 06/18/17 Range/Units 16:30 PT 12.7 H (9.0-12.0) sec APTT 27.5 (22.0-30.0) sec CBC 06/18/17 Range/Units 16:30 WBC 7.7 (3.8-10.6) k/uL RBC 4.08 (3.80-5.40) m/uL Hgb 13.5 (11.4-16.0) gm/dL Hct 41.4 (34.0-46.0) % Plt Count 224 (150-450) k/uL Comprehensive Metabolic Panel 06/18/17 Range/Units 16:30 Sodium 128 L (137-145) mmol/L Potassium 6.2 H* (3.5-5.1) mmol/L Chloride 86 L (98-107) mmol/L Carbon Dioxide 34 H (22-30) mmol/L BUN 33 H (7-17) mg/dL Creatinine 1.00 (0.52-1.04) mg/dL Glucose 131 H (74-99) mg/dL Calcium 9.2 (8.4-10.2) mg/dL AST 35 (14-36) U/L ALT 34 (9-52) U/L Alkaline Phosphatase 74 (38-126) U/L Total Protein 6.6 (6.3-8.2) g/dL Albumin 4.1 (3.5-5.0) g/dL Current Medications Generic Name Dose Route Start Last Admin Trade Name Freq PRN Reason Stop Dose Admin Hydrocodone Bitart/Acetaminophen 1 each 06/18/17 21:48 06/19/17 08:30 [place] 7.5-325 PO 1 each Q6HR PRN Administration Moderate Pain Albuterol/Ipratropium 3 ml 06/19/17 08:00 06/19/17 11:36 Duoneb 0.5 Mg-3 Mg/3 Ml Soln INHALATION 3 ml RT-QID YOSELIN Administration Albuterol/Ipratropium 3 ml 06/18/17 21:48 Duoneb 0.5 Mg-3 Mg/3 Ml Soln INHALATION RT-BID PRN Shortness Of Breath Or Wheezing Apixaban 5 mg 06/18/17 21:00 06/19/17 08:01 Eliquis PO 5 mg BID@0800,2100 YOSELIN Administration Aspirin 81 mg 06/19/17 21:00 Aspirin PO HS@2100 YOSELIN Atorvastatin Calcium 80 mg 06/18/17 21:00 06/18/17 21:53 Lipitor PO 80 mg HS@2100 YOSELIN Administration Budesonide 0.5 mg 06/19/17 08:00 06/19/17 08:30 Pulmicort INHALATION 0.5 mg RT-BID YOSELIN Administration Clopidogrel Bisulfate 75 mg 06/19/17 08:00 06/19/17 08:02 Plavix PO 75 mg DAILY@0800 YOSELIN Administration Escitalopram Oxalate 20 mg 06/19/17 09:00 06/19/17 08:03 Lexapro PO 20 mg DAILY YOSELIN Administration Famotidine 20 mg 06/19/17 08:00 06/19/17 08:01 Pepcid PO 20 mg DAILY@0800 YOSELIN Administration Ferrous Sulfate 325 mg 06/19/17 08:00 06/19/17 08:01 Feosol PO 325 mg BID@0800,2100 [facility] Administration Formoterol Fumarate 20 mcg 06/19/17 08:00 06/19/17 08:30 Perforomist INHALATION 20 mcg RT-BID@0800,1700 YOSELIN Administration Furosemide 40 mg 06/19/17 00:00 06/19/17 08:02 Lasix IV 40 mg Q8H YOSELIN Administration Furosemide 40 mg 06/19/17 21:00 Lasix PO HS [facility] Furosemide 80 mg 06/19/17 09:00 Lasix PO DAILY [facility] Hydralazine HCl 25 mg 06/19/17 08:00 06/19/17 08:01 Apresoline PO 25 mg TID@0800,1200,1700 YOSELIN Administration Insulin Human Lispro 0 unit 06/19/17 07:30 06/19/17 06:32 Humalog SQ 2 unit ACHS [facility] Administration Protocol Levothyroxine Sodium 125 mcg 06/19/17 06:00 06/19/17 06:32 Synthroid PO 125 mcg DAILY@0600 YOSELIN Administration Lorazepam 0.5 mg 06/18/17 21:48 Ativan PO Q8H PRN Anxiety Melatonin 5 mg 06/18/17 21:48 Melatonin PO HS PRN Insomnia Methylprednisolone Sodium Succinate 60 mg 06/19/17 00:00 06/19/17 06:32 Solu-Medrol IV 60 mg Q6HR YOSELIN Administration Metoprolol Tartrate 50 mg 06/19/17 08:00 06/19/17 08:00 Lopressor PO 50 mg TID@0800,1200,1700 YOSELIN Administration Sacubitril/Valsartan 1 each 06/19/17 09:00 06/19/17 08:12 Entresto 97 Mg-103 Mg Tablet PO 1 each BID YOSELIN Administration Intake and Output 06/18/17 06/19/17 06/19/17 22:59 06:59 14:59 Intake Total 120 Balance 120 Intake: Oral 120 Other: Voiding Method Toilet # Voids 1 1 Weight 73.028 kg 74 kg 06/18/17 16:30 06/18/17 16:30 EKG Interpretations (text) EKG shows atrial fibrillation with a rapid ventricular response. Assessment and Plan Plan: Assessment and plan #1 acute exacerbation of COPD #2 systolic congestive heart failure acute on chronic #3 chronic persistent atrial fibrillation, on Eliquis for anticoagulation #4 hypothyroidism #5 PAD with prior intervention #6 history of nicotine dependence #7 hypertension #8 hyperlipidemia #9 hypothyroidism Plan Patient had an echocardiogram with Doppler study performed in November, ejection fraction at that time 35-40%. We will repeat an echo this admission as well. Continue current dose of IV Lasix. Continue current dose of beta stu, heart rate under adequate control, currently in the 90s. Further recommendations to follow. DNP note has been reviewed, I agree with a documented findings and plan of care. Patient was seen and examined. <Jimbo Carrera - Last Filed: 06/20/17 11:07> Physical Exam Vitals: Vital Signs Temp Pulse Pulse Resp BP Pulse Ox 06/20/17 09:20 97.5 F L 115 H 20 92/60 93 L 06/20/17 08:28 86 06/20/17 08:15 86 06/20/17 08:05 92 97 06/20/17 04:00 96.8 F L 96 18 114/72 99 06/20/17 00:00 77 18 97/56 94 L 06/19/17 20:28 112 H 06/19/17 20:18 110 H 06/19/17 20:06 110 H 06/19/17 20:00 96.7 F L 94 18 96/52 98 06/19/17 16:09 108 H 06/19/17 16:00 96 18 99/66 98 06/19/17 15:57 105 H 06/19/17 12:00 103 H 19 108/68 92 L 06/19/17 11:48 112 H 06/19/17 11:36 116 H Intake and Output 06/19/17 06/20/17 06/20/17 22:59 06:59 14:59 Intake Total 120 300 120 Output Total 450 300 Balance -330 0 120 Intake: Oral 120 300 120 Output: Urine 450 300 Other: Voiding Method Toilet # Voids 1 1 # Bowel Movements 0 Weight 75 kg Results 06/20/17 05:21 06/20/17 05:21 CBC 06/20/17 Range/Units 05:21 WBC 11.1 H (3.8-10.6) k/uL RBC 4.07 (3.80-5.40) m/uL Hgb 12.9 (11.4-16.0) gm/dL Hct 42.5 (34.0-46.0) % Plt Count 214 (150-450) k/uL Comprehensive Metabolic Panel 06/19/17 06/19/17 06/20/17 Range/Units 17:48 21:58 05:21 Sodium 130 L 127 L (137-145) mmol/L Potassium 5.7 H 4.7 5.1 (3.5-5.1) mmol/L Chloride 84 L 84 L (98-107) mmol/L Carbon Dioxide 37 H 35 H (22-30) mmol/L BUN 35 H 46 H (7-17) mg/dL Creatinine 1.30 H 1.40 H (0.52-1.04) mg/dL Glucose 112 H 124 H (74-99) mg/dL Calcium 8.5 8.2 L (8.4-10.2) mg/dL Current Medications Generic Name Dose Route Start Last Admin Trade Name Freq PRN Reason Stop Dose Admin Hydrocodone Bitart/Acetaminophen 1 each 06/18/17 21:48 06/20/17 05:11 [place] 7.5-325 PO 1 each Q6HR PRN Administration Moderate Pain Albuterol/Ipratropium 3 ml 06/19/17 08:00 06/20/17 08:03 Duoneb 0.5 Mg-3 Mg/3 Ml Soln INHALATION 3 ml RT-QID YOSELIN Administration Albuterol/Ipratropium 3 ml 06/18/17 21:48 Duoneb 0.5 Mg-3 Mg/3 Ml Soln INHALATION RT-BID PRN Shortness Of Breath Or Wheezing Apixaban 5 mg 06/18/17 21:00 06/20/17 09:38 Eliquis PO 5 mg BID@0800,2100 [facility] Administration Aspirin 81 mg 06/19/17 21:00 06/19/17 21:22 Aspirin PO 81 mg HS@2100 YOSELIN Administration Atorvastatin Calcium 80 mg 06/18/17 21:00 06/19/17 21:25 Lipitor PO 80 mg HS@2100 YOSELIN Administration Budesonide 0.5 mg 06/19/17 08:00 06/20/17 08:02 Pulmicort INHALATION 0.5 mg RT-BID YOSELIN Administration Clopidogrel Bisulfate 75 mg 06/19/17 08:00 06/20/17 09:38 Plavix PO 75 mg DAILY@0800 [facility] Administration Escitalopram Oxalate 20 mg 06/19/17 09:00 06/20/17 09:37 Lexapro PO 20 mg DAILY YOSELIN Administration Famotidine 20 mg 06/19/17 08:00 06/19/17 08:01 Pepcid PO 20 mg DAILY@0800 YOSELIN Administration Ferrous Sulfate 325 mg 06/19/17 08:00 06/20/17 09:38 Feosol PO 325 mg BID@0800,2100 [facility] Administration Formoterol Fumarate 20 mcg 06/19/17 08:00 06/20/17 08:02 Perforomist INHALATION 20 mcg RT-BID@0800,1700 [facility] Administration Furosemide 40 mg 06/19/17 00:00 06/20/17 09:37 Lasix IV 40 mg Q8H YOSELIN Administration Hydralazine HCl 25 mg 06/19/17 08:00 06/20/17 09:39 Apresoline PO Not Given TID@0800,1200,1700 [facility] Insulin Human Lispro 0 unit 06/19/17 07:30 06/20/17 06:22 Humalog SQ 1 unit ACHS [facility] Administration Protocol Levothyroxine Sodium 125 mcg 06/19/17 06:00 06/20/17 06:22 Synthroid PO 125 mcg DAILY@0600 [facility] Administration Lorazepam 0.5 mg 06/18/17 21:48 06/20/17 09:38 Ativan PO 0.5 mg Q8H PRN Administration Anxiety Melatonin 5 mg 06/18/17 21:48 Melatonin PO HS PRN Insomnia Methylprednisolone Sodium Succinate 40 mg 06/20/17 00:00 06/20/17 09:37 Solu-Medrol IV 40 mg Q8HR YOSELIN Administration Metoprolol Tartrate 50 mg 06/19/17 08:00 06/20/17 09:38 Lopressor PO 50 mg TID@0800,1200,1700 YOSELIN Administration Sacubitril/Valsartan 1 each 06/19/17 09:00 06/20/17 09:38 Entresto 97 Mg-103 Mg Tablet PO 1 each BID YOSELIN Administration Intake and Output 06/19/17 06/20/17 06/20/17 22:59 06:59 14:59 Intake Total 120 300 120 Output Total 450 300 Balance -330 0 120 Intake: Oral 120 300 120 Output: Urine 450 300 Other: Voiding Method Toilet # Voids 1 1 # Bowel Movements 0 Weight 75 kg 06/20/17 05:21 06/20/17 05:21
[2017-06-19 17:40] LABS: Glucose,Whole Blood 122 mg/dL (75-99)
[2017-06-19 18:15] LABS: Calcium 8.5 mg/dL (8.4-10.2); Potassium 5.7 mmol/L (3.5-5.1)
[2017-06-19] MEDS ORDERED: INSULIN REGULAR 100 UNIT/ML VIAL SQ ONE (18:35)
[2017-06-19] MEDS ORDERED: SODIUM POLYSTYRENE SULFONATE 15 GM/60 ML BOTTLE PO STA (18:35)
[2017-06-19] MEDS ORDERED: DEXTROSE 50%-WATER 50 ML SYRINGE IVP STA (18:36)
[2017-06-19] MEDS ORDERED: SODIUM BICARBONATE TAB 650 MG TAB PO STA (18:44)
--- NOTE | 2017-06-19 19:20 | ECHOF ---
Referral Reason:chf MEASUREMENTS -------- HEIGHT: 162.6 cm WEIGHT: 73.9 kg BP: 108/68 RVIDd: 3.8 cm (< 3.3) IVSd: 1.4 cm (0.6 - 1.1) LVIDd: 4.2 cm (3.9 - 5.3) LVPWd: 1.3 cm (0.6 - 1.1) IVSs: 1.7 cm LVIDs: 2.8 cm LVPWs: 1.7 cm LAESV Index (A-L): 51.35 ml/m Ao Diam: 2.8 cm (2.0 - 3.7) AV Cusp: 1.4 cm (1.5 - 2.6) LA Diam: 4.2 cm (2.7 - 3.8) MV EXCURSION: 19.089 mm (> 18.000) MV EF SLOPE: 104 mm/s (70 - 150) EPSS: 1.0 cm MV E Kyler: 1.18 m/s MV DecT: 148 ms MV A [place]: 0.01 m/s MV E/A Ratio: 184.35 RAP: 5.00 mmHg RVSP: 37.23 mmHg FINDINGS -------- Sinus rhythm. This was a technically adequate study. There is moderate concentric left ventricular hypertrophy. There is moderate global hypokinesis of LV . Overall left ventricular systolic function is moderately impaired with, an EF between 35 - 40 %. Septal wall motion is delayed, and consistent with conduction delay/bundle branch block. The right ventricle is mild to moderately enlarged. LA is severely dilated >40 ml/m2 RA appears enlarged. Aortic valve is trileaflet and is mildly thickened. There is no evidence of aortic regurgitation. There is no evidence of aortic stenosis. The mitral valve leaflets are mildly thickened. Mild mitral annular calcification present. There is trace to mild mitral regurgitation. [id number] tricuspid regurgitation present. There is mild pulmonary hypertension. The right ventricular systolic pressure, as measured by Doppler, is 37.23mmHg. The pulmonic valve was not well visualized. The aortic root size is normal. The inferior vena cava is dilated with poor inspiratory collapse which is consistent with estimated right atrial pressure of 20 mmHg. The pericardium is normal. There is no pericardial effusion. CONCLUSIONS -------- 1. Sinus rhythm. 2. Mild mitral annular calcification present. 3. There is trace to mild mitral regurgitation. 4. [id number] tricuspid regurgitation present. 5. There is mild pulmonary hypertension. 6. The right ventricular systolic pressure, as measured by Doppler, is 37.23mmHg. 7. The pulmonic valve was not well visualized. 8. The aortic root size is normal. 9. The inferior vena cava is dilated with poor inspiratory collapse which is consistent with estimated right atrial pressure of 20 mmHg. 10. There is no pericardial effusion. 11. This was a technically adequate study. 12. There is moderate concentric left ventricular hypertrophy. 13. Septal wall motion is delayed, and consistent with conduction delay/bundle branch block. 14. The right ventricle is mild to moderately enlarged. 15. LA is severely dilated >40 ml/m2 16. RA appears enlarged. 17. Aortic valve is trileaflet and is mildly thickened. 18. The mitral valve leaflets are mildly thickened. CABLE RIGGER: Carlito Reid RDCS
[2017-06-19 21:04] LABS: Glucose,Whole Blood 154 mg/dL (75-99)
[2017-06-19] MEDS: ASPIRIN 81 MG CHEW PO SCH (21:22)
[2017-06-19] MEDS: ATORVASTATIN 80 MG TAB PO SCH (21:25)
[2017-06-19] MEDS: methylPREDNISolone SOD SUCCI 40 MG/ML 1 ML VIAL IV SCH (23:21)
[2017-06-20] MEDS: HYDROcodone/APAP 7.5-325MG 1 EACH TAB PO PRN ×3 (05:11→23:32)
[2017-06-20 06:16] LABS: Glucose,Whole Blood 139 mg/dL (75-99)
[2017-06-20] MEDS: INSULIN LISPRO (humaLOG) 300 UNIT/3 ML VIAL SQ SCH ×4 (06:22→21:19)
[2017-06-20] MEDS: LEVOTHYROXINE 125 MCG TAB PO SCH (06:22)
[2017-06-20 06:35] LABS: Anisocytosis Slight; Basophils % (A) 0 %; CH 31.9; CHCM 30.8; Eosinophils % (A) 0 %; HCT 42.5 % (34.0-46.0); HDW 2.76; HGB 12.9 gm/dL (11.4-16.0); Hypochromasia Moderate; Luc # (Auto) 0.07; Luc % (Auto) 1; Lymphocytes # (A) 0.6 k/uL (1.0-4.8); Lymphocytes % (A) 5 %; MCH 31.7 pg (25.0-35.0); MCHC 30.3 g/dL (31.0-37.0); MCV 104.4 fL (80.0-100.0); Macrocytosis Moderate; Mean Platelet Volume 7.8; Monocytes # (A) 0.4 k/uL (0-1.0); Monocytes % (A) 4 %; Neutrophils % (A) 90 %; RBC 4.07 m/uL (3.80-5.40); WBC 11.1 k/uL (3.8-10.6); WBC (Perox) 11.27
[2017-06-20 07:03] LABS: Calcium 8.2 mg/dL (8.4-10.2); Potassium 5.1 mmol/L (3.5-5.1)
[2017-06-20] MEDS: FORMOTEROL FUMARATE 20 MCG/2 ML NEBU INHALATION SCH ×2 (08:02→20:24)
[2017-06-20] MEDS: BUDESONIDE 0.5 MG/2 ML NEBU INHALATION SCH ×2 (08:02→20:24)
[2017-06-20] MEDS: IPRATROPIUM-ALBUTEROL 3 ML NEB INHALATION SCH ×4 (08:03→20:24)
[2017-06-20] MEDS: methylPREDNISolone SOD SUCCI 40 MG/ML 1 ML VIAL IV SCH ×3 (09:37→23:13)
[2017-06-20] MEDS: ESCITALOPRAM 20 MG TAB PO SCH (09:37)
[2017-06-20] MEDS: FUROSEMIDE 10 MG/ML 4 ML VIAL IV SCH ×2 (09:37→17:15)
[2017-06-20] MEDS: APIXABAN 5 MG TAB PO SCH ×2 (09:38→20:05)
[2017-06-20] MEDS: FAMOTIDINE 20 MG TAB PO SCH ×2 (09:38→13:12)
[2017-06-20] MEDS: METOPROLOL TARTRATE 50 MG TAB PO SCH ×3 (09:38→17:16)
[2017-06-20] MEDS: LORazepam 0.5 MG TAB PO PRN ×2 (09:38→23:13)
[2017-06-20] MEDS: FERROUS SULFATE 325 MG TAB PO SCH ×2 (09:38→20:04)
[2017-06-20] MEDS: CLOPIDOGREL 75 MG TAB PO SCH (09:38)
[2017-06-20] MEDS: SACUBITRIL/VALSARTAN 97 MG-103 MG TABLET PO SCH ×2 (09:38→20:04)
[2017-06-20] MEDS: hydrALAZINE HCL 25 MG TAB PO SCH ×3 (09:39→17:16)
[2017-06-20 11:40] LABS: Glucose,Whole Blood 143 mg/dL (75-99)
--- NOTE | 2017-06-20 13:48 | HP ---
DATE OF ADMISSION: 06/18/2017 PRESENTING COMPLAINT: Short of breath. HISTORY OF PRESENTING COMPLAINT: This is a 61-year-old patient with rather extensive medical history. She follows with Dr. Lloyd. Chronic stable medical conditions include atrial flutter, fibrillation, hyperlipidemia, hypertension, osteoarthritis. Patient has known end-stage COPD and multiple other medical problems. Patient presents with worsening short of breath, some wheezing, light phlegm, decreased appetite, run down, tired, some edema. REVIEW OF SYSTEMS: CONSTITUTIONAL: Awake, tired. HEENT: None. RESPIRATORY: As above. CARDIOVASCULAR: As above. GASTROINTESTINAL: None. GENITOURINARY: None. MUSCULOSKELETAL: Pain in the joints. DERMATOLOGICAL: Bruising. HEMATOLOGICAL: Bruising. LYMPHATIC: None. PSYCHIATRY: Anxiety. NEUROLOGICAL: Restless leg syndrome. PAST MEDICAL HISTORY: Atrial tachycardia with ( ) ablation in the past, atrial flutter, fibrillation, coronary artery disease, COPD, fibromyalgia, hyperlipidemia, hypertension, DJD, chronic hypoxic respiratory failure, hypothyroidism, chronic congestive heart failure, EF 30% to 35%. PAST SURGICAL HISTORY: Bowel resection, , cardiac cath, EP study with ablation. SOCIAL HISTORY: Patient smoked for many years. Stopped about 3 year ago. Allergies to CIPRO, BUDESONIDE, SYMBICORT. FAMILY HISTORY: Reviewed, noncontributory to presentation. HOME MEDICATIONS: 1. Potassium 20 mEq a day. 2. Xopenex HFA 2 puffs q.6 p.r.n. 3. Perforomist 20 mcg b.i.d. 4. Plavix 75 mg p.o. daily. 5. Lopressor 50 mg p.o. t.i.d. 6. Melatonin 5 mg p.o. q.h.s. p.r.n. 7. Ativan 0.5 p.o. q.8 p.r.n. 8. [place] 7.5 one tablet q.6 p.r.n. 9. Pepcid 20 mg p.o. daily. 10. Synthroid 125 mcg p.o. daily. 11. Lasix 40 mg p.o. q.h.s. 12. Lexapro 20 mg p.o. daily. 13. Hydralazine 25 mg p.o. t.i.d. 14. DuoNeb b.i.d. p.r.n. 15. Lasix 80 mg p.o. daily. 16. Entresto 97/103 one table p.o. b.i.d. 17. Iron 325 p.o. b.i.d. 18. Pulmicort 0.5 nebulizer b.i.d. 19. Eliquis 5 mg p.o. b.i.d. 20. Lipitor 80 mg p.o. q.h.s. 21. Aspirin 81 mg p.o. q.h.s. Allergies to CIPRO, BUDESONIDE,FORMOTEROL, the latter 2 only ( ) tachycardia. ON EXAMINATION: VITAL SIGNS ON PRESENTATION: Temperature 97, pulse 136, respirations 24, blood pressure 151/91, pulse ox 94% on 3 L upon presentation. GENERAL APPEARANCE: Average build, lying in bed, tired appearing, short of breath. EYES: Puffy. Conjunctivae normal. HENT: External appearance of nose and ears normal. Oral cavity normal. NECK: JVD unable to assess. Mass not palpable. RESPIRATORY: Effort increased. LUNGS: Diminished breath sounds, prolonged expiration. CARDIOVASCULAR: Heart sounds irregular. Some edema present. ABDOMEN: Soft, nontender. Liver and spleen not palpable. LYMPHATIC: No lymph nodes palpable in the neck or axillae. PSYCHIATRY: Alert and oriented x3. Mood affect anxious appearing. NEUROLOGICAL: Pupils equal. Cranial nerves grossly intact. Power and sensation grossly intact. MUSCULOSKELETAL: Evidence of osteoarthritis in different joints. DERMATOLOGICAL: Bruising is present. INVESTIGATIONS: White count 7.7, hemoglobin 13.5. Potassium 6.2. BUN 33, creatinine 1.0. Sodium 128. Accu-Cheks are noted. Pro-BNP 9860. TSH 41, free T4 0.38. Chest x-ray shows cardiomegaly and venous prominence. ASSESSMENT: 1. Acute on chronic congestive heart failure exacerbation from systolic dysfunction. Ejection fraction 30% to 35% from underlying coronary artery disease. 2. Atrial flutter, fibrillation uncontrolled on presentation. 3. Acute chronic obstructive pulmonary disease exacerbation in an end-stage type chronic obstructive pulmonary disease in an ex-smoker. 4. Restless leg syndrome. 5. Chronic fibromyalgia. 6. Essential hypertension. 7. Hyperlipidemia. 8. Primary osteoarthritis of multiple joints bilateral. 9. Chronic hypoxic respiratory failure from underlying chronic obstructive pulmonary disease on 2 L of oxygen at home. 10. Hypothyroidism. 11. Secondary pulmonary hypertension secondary to chronic obstructive pulmonary disease. 12. Severe tricuspid regurgitation, nonrheumatic. 13. Depression, not otherwise specified. 14. Hyponatremia, suspect hypoosmolar with fluid overload. PLAN: Home medications are resume. Patient is put on IV Lasix. Consultation will be made to Pulmonary and Cardiology. Expecting patient's potassium to come down with Lasix she is receiving. Overall prognosis is guarded. Repeat potassium and hold off any potassium supplement. MTDD
--- NOTE | 2017-06-20 14:13 | P.PN ---
Subjective This is a pleasant 61-year-old female patient follows with Dr. Lloyd as her primary care physician. She has a history of atrial flutter/fibrillation with previous ablation anticoagulated with apixaban, coronary artery disease, congestive heart failure with an ejection fraction of 30-35%, severe pulmonary hypertension with an RVSP of 60 mmHg severe peripheral vascular disease,, gastroesophageal reflux disease, hyperlipidemia, hypertension, hypothyroidism. She also has a history of chronic obstructive pulmonary disease and is chronically on home oxygen at 2 L/m per nasal cannula. Her FEV1 value is 30% of predicted. She is a former smoker. She is on DuoNebs along with Pulmicort and Perforomist inhalations in the outpatient setting. She presented here to the emergency room yesterday with complaints of increasing shortness of breath, cough and congestion. She was treated with a Z-Zan in the outpatient setting without much improvement. Her chest x-ray shows evidence of cardiomegaly with mild venous congestion. Lab results show no leukocytosis. Hemoglobin stable. Her sodium was low at 128 and a potassium high at 6.2. She was also found to be quite hypothyroid with a TSH of 41 and a free T4 of 0.38, free T3 1 0.5. The patient is seen again today 06/20/2017 in follow-up on the selective care unit. She is awake and alert in no acute distress. She states she is breathing easier today as compared to yesterday. Her echocardiogram did reveal moderately impaired left ventricular systolic function with estimated ejection fraction 35-40%. She denies any chest pain, palpitations lightheadedness or dizziness. Her sodium is 127 with a creatinine of 1.40 and a potassium of 5.1. She is maintaining O2 saturations in the low 90s on 3 L/m per nasal cannula. Objective - Vital Signs Vital signs: Vital Signs Temp 97.5 F L 06/20/17 09:20 Pulse 100 06/20/17 13:10 Resp 20 06/20/17 13:10 BP 88/58 06/20/17 13:10 Pulse Ox 91 L 06/20/17 13:10 Intake & Output 06/19/17 06/20/17 06/20/17 18:59 06:59 18:59 Intake Total 360 300 120 Output Total 450 300 Balance -90 0 120 Weight 74 kg 75 kg Intake: Oral 360 300 120 Output: Urine 450 300 Other: Voiding Method Toilet # Voids 1 1 # Bowel Movements 0 - Exam GENERAL EXAM: Obese. 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 Alert, comfortable in no apparent distress. HEAD: Normocephalic. EYES: Normal reaction of pupils, equal size. NOSE: Clear with pink turbinates. THROAT: No erythema or exudates. NECK: No masses, no JVD. CHEST: No chest wall deformity. LUNGS: Equal air entry with crackles in the bilateral posterior bases. CVS: S1 and S2 normal with no audible murmurs, regular rhythm. ABDOMEN: No hepatosplenomegaly, normal bowel sounds, no guarding or rigidity. Extremities: There is trace peripheral edema. No clubbing, no cyanosis. Peripheral pulses are intact. - Labs CBC & Chem 7: 06/20/17 05:21 06/20/17 05:21 Labs: Abnormal Lab Results - Last 24 Hours (Table) 06/19/17 06/19/17 06/19/17 Range/Units 17:38 17:48 21:03 WBC (3.8-10.6) k/uL MCV (80.0-100.0) fL MCHC (31.0-37.0) g/dL RDW (11.5-15.5) % Neutrophils # (1.3-7.7) k/uL Lymphocytes # (1.0-4.8) k/uL Sodium 130 L (137-145) mmol/L Potassium 5.7 H (3.5-5.1) mmol/L Chloride 84 L (98-107) mmol/L Carbon Dioxide 37 H (22-30) mmol/L BUN 35 H (7-17) mg/dL Creatinine 1.30 H (0.52-1.04) mg/dL Glucose 112 H (74-99) mg/dL POC Glucose (mg/dL) 122 H 154 H (75-99) mg/dL Calcium (8.4-10.2) mg/dL 06/20/17 06/20/17 06/20/17 Range/Units 05:21 05:21 06:14 WBC 11.1 H (3.8-10.6) k/uL MCV 104.4 H (80.0-100.0) fL MCHC 30.3 L (31.0-37.0) g/dL RDW 18.0 H (11.5-15.5) % Neutrophils # 10.0 H (1.3-7.7) k/uL Lymphocytes # 0.6 L (1.0-4.8) k/uL Sodium 127 L (137-145) mmol/L Potassium (3.5-5.1) mmol/L Chloride 84 L (98-107) mmol/L Carbon Dioxide 35 H (22-30) mmol/L BUN 46 H (7-17) mg/dL Creatinine 1.40 H (0.52-1.04) mg/dL Glucose 124 H (74-99) mg/dL POC Glucose (mg/dL) 139 H (75-99) mg/dL Calcium 8.2 L (8.4-10.2) mg/dL 06/20/17 Range/Units 11:33 WBC (3.8-10.6) k/uL MCV (80.0-100.0) fL MCHC (31.0-37.0) g/dL RDW (11.5-15.5) % Neutrophils # (1.3-7.7) k/uL Lymphocytes # (1.0-4.8) k/uL Sodium (137-145) mmol/L Potassium (3.5-5.1) mmol/L Chloride (98-107) mmol/L Carbon Dioxide (22-30) mmol/L BUN (7-17) mg/dL Creatinine (0.52-1.04) mg/dL Glucose (74-99) mg/dL POC Glucose (mg/dL) 143 H (75-99) mg/dL Calcium (8.4-10.2) mg/dL Assessment and Plan Plan: Impression: #1 Acute exacerbation of chronic obstructive pulmonary disease in a patient with a known history of severe COPD, oxygen dependent, FEV1 value 30% of predicted. #2 Acute exacerbation of chronic systolic congestive heart failure repeat echocardiogram reveals moderately impaired left ventricular systolic function with an ejection fraction 35-40%. #3 Severe pulmonary hypertension. #4 Chronic atrial fibrillation with rapid ventricular response at times. History of previous ablation. Anticoagulated with apixaban. #5 Restless leg syndrome. #6 Hypothyroidism. #7 Fibromyalgia. #8 Hyperlipidemia. #9 Hypertension. #10 Degenerative arthritis. #11 Poor overall functional performance secondary to the above-mentioned multiple comorbidities. Plan: The patient was seen and evaluated by Dr. Crowley. Her x-ray and labs were reviewed. We will continue with her current pulmonary medications. Cardiology is on the case as well regarding her congestive heart failure. She remains on Lasix 40 mg IV every 8 hours. We'll increase her activity as tolerated. We'll continue to follow.
--- NOTE | 2017-06-20 14:56 | P.PN ---
<Cathie Monk - Last Filed: 06/20/17 14:11> Progress Note - Text DATE OF SERVICE: 06/20/2017 PRESENTING COMPLAINT: Shortness of breath INTERVAL HISTORY: 61-year-old female with end-stage COPD presented with worsening shortness of breath wheezing and phlegm decreased appetite rundown and tired some edema. Acute on chronic congestive heart failure exacerbation, also found to be in atrial flutter/fibrillation, and hyperkalemic with potassium of 6.2. 06/20/2017: Patient seen in follow-up, no acute overnight events. Patient received sodium bicarbonate, Kayexalate, regular insulin, half an amp of dextrose, to assist in correction of potassium. Potassium now 5.1. Patient lying in bed, appears comfortable, breathing easily. Ambulatory within the room. Tolerating her diet eating 75%, and last BM yesterday. REVIEW OF SYSTEMS: Done for constitutional ,cardiovascular, GI, pulmonary with relevant findings as above. CURRENT MEDICATIONS [place], DuoNeb's, Eliquis, aspirin, Lipitor, Pulmicort, Plavix, Perforomist Lasix , Apresoline, Synthroid, Solu-Medrol, entresto PHYSICAL EXAM VITAL SIGNS: Temperature 97.5, heart rate 1:15, respiratory rate 20, blood pressure 92/60, oxygen saturation 93% on 3 L. GENERAL APPEARANCE: Lying in bed, appears comfortable EYES: Puffy, red Pupils equal. Conjunctiva normal. NECK: JVD unable to assess. Mass not palpable. RESPIRATORY: Respiratory effort increased. Lungs diminished with prolonged expiration auscultation. CARDIOVASCULAR: Irregular rhythm. Mild edema. ABDOMEN: Soft. Liver and spleen not palpable. No tenderness. No mass palpable. PSYCHIATRY: Alert and oriented x3. Mood and affect normal. INVESTIGATIONS: White blood cell count 11.1, hemoglobin 12.9, sodium 127, chloride 84, BUN 46, creatinine 1.40. Accu-Cheks noted Echocardiogram, sinus rhythm, EF between 35 and 40%, trace to mild mitral regurgitation, mild to moderate tricuspid regurgitation, mild pulmonary hypertension, ASSESSMENT: -Acute on chronic congestive heart failure exacerbation from systolic dysfunction. Ejection fraction 30-35% from underlying coronary artery disease. -Atrial flutter,/fibrillation, uncontrolled on presentation., -Acute chronic obstructive pulmonary disease exacerbation and an end-stage type chronic obstructive pulmonary disease in an ex-smoker. -Restless leg syndrome. -Chronic fibromyalgia. -Essential hypertension. -Hyperlipidemia. -Primary osteoarthritis of multiple joints bilateral. -Chronic hypoxic respiratory failure from underlying chronic obstructive pulmonary disease on 2 L of oxygen at home. -Hypothyroidism. -Secondary pulmonary hypertension secondary to chronic obstructive pulmonate disease. -Severe tricuspid regurgitation, nonrheumatic. -Depression not otherwise specified. -Hyponatremia suspect hypoosmolar with fluid overload. -Hyperkalemia improving PLAN: Continue current medication and treatment plan. Await additional input from cardiology. Increase activity. Plan of care discussed with the patient she is in agreement. We'll continue to follow. CALIBRATION LABORATORY TECHNICIAN statement: Patient was seen and examined by nurse practitioner Cathie Monk and all elements of the case discussed with attending Dr. Ramos <Iglesia Ramos - Last Filed: 06/20/17 21:03> Progress Note - Text Attending note. Date of service-06/20/2017 This patient was seen and examined by me . I reviewed the note of my nurse practitioner, Ms. Monk. Discussed with her, additional findings as below. Admitted with CHF exacerbation. Breathing a bit better. Did eat some breakfast On examination: Lungs-decreased breath sounds decreased wheezing, laying down in bed more comfortable, skin-diffuse bruising Investigations: Sodium 127, BUN 46, creatinine 1.40 Assessment and plan: Acute on chronic congestive heart failure exacerbation from systolic dysfunction EF 3035% underlying coronary artery disease Atrial flutter fibrillation uncontrolled on presentation Hyponatremia likely hypoosmolar-slow to improve Patient is appearing better. Will cut back on IV Lasix. Check BMP in the morning. Care discussed with the patient. Put on fluid restriction 1200 mL a and a avoid free fluids
[2017-06-20 16:33] LABS: Glucose,Whole Blood 134 mg/dL (75-99)
[2017-06-20] MEDS: ATORVASTATIN 80 MG TAB PO SCH (20:05)
[2017-06-20] MEDS: ASPIRIN 81 MG CHEW PO SCH (20:05)
[2017-06-20 20:56] LABS: Glucose,Whole Blood 135 mg/dL (75-99)
[2017-06-21] MEDS: HYDROcodone/APAP 7.5-325MG 1 EACH TAB PO PRN ×2 (05:40→17:49)
[2017-06-21 05:57] LABS: Glucose,Whole Blood 128 mg/dL (75-99)
[2017-06-21] MEDS: INSULIN LISPRO (humaLOG) 300 UNIT/3 ML VIAL SQ SCH ×4 (06:04→20:54)
[2017-06-21] MEDS: LEVOTHYROXINE 125 MCG TAB PO SCH (06:08)
[2017-06-21 06:24] LABS: Anisocytosis Slight; Basophils % (A) 0 %; CH 31.8; CHCM 30.9; Eosinophils % (A) 0 %; HCT 42.5 % (34.0-46.0); HDW 2.75; HGB 13.5 gm/dL (11.4-16.0); Hypochromasia Moderate; Luc # (Auto) 0.06; Luc % (Auto) 1; Lymphocytes # (A) 0.5 k/uL (1.0-4.8); Lymphocytes % (A) 4 %; MCH 32.9 pg (25.0-35.0); MCHC 31.7 g/dL (31.0-37.0); MCV 103.8 fL (80.0-100.0); Macrocytosis Moderate; Mean Platelet Volume 7.6; Monocytes # (A) 0.4 k/uL (0-1.0); Monocytes % (A) 4 %; Neutrophils # (A) 10.3 k/uL (1.3-7.7); Neutrophils % (A) 92 %; RBC 4.09 m/uL (3.80-5.40); RDW 17.6 % (11.5-15.5); WBC 11.3 k/uL (3.8-10.6); WBC (Perox) 11.69
[2017-06-21 06:53] LABS: Potassium 4.6 mmol/L (3.5-5.1)
--- NOTE | 2017-06-21 07:19 | XR ---
EXAMINATION TYPE: XR chest 2V DATE OF EXAM: 06/21/2017 COMPARISON: June 18, 2017 HISTORY: Shortness of breath TECHNIQUE: Frontal and lateral views of the chest are obtained. FINDINGS: Scattered senescent parenchymal changes noted. Hyperinflation compatible with COPD. No evidence for infiltrate. No evidence for atelectasis. Continued cardiomegaly with mild pulmonary venous congestion. Small right-sided pleural effusion. Mediastinal structures are stable and grossly unremarkable. No evidence for hilar prominence. Degenerative changes dorsal spine. IMPRESSION: 1. Continued cardiomegaly with mild pulmonary venous congestion. Small right-sided pleural effusion.
[2017-06-21] MEDS: BUDESONIDE 0.5 MG/2 ML NEBU INHALATION SCH ×2 (07:57→19:35)
[2017-06-21] MEDS: FORMOTEROL FUMARATE 20 MCG/2 ML NEBU INHALATION SCH ×2 (07:57→19:35)
[2017-06-21] MEDS: IPRATROPIUM-ALBUTEROL 3 ML NEB INHALATION SCH ×4 (07:58→19:35)
[2017-06-21] MEDS: APIXABAN 5 MG TAB PO SCH ×2 (08:44→20:11)
[2017-06-21] MEDS: CLOPIDOGREL 75 MG TAB PO SCH (08:44)
[2017-06-21] MEDS: FAMOTIDINE 20 MG TAB PO SCH (08:45)
[2017-06-21] MEDS: FERROUS SULFATE 325 MG TAB PO SCH ×2 (08:45→20:11)
[2017-06-21] MEDS: FUROSEMIDE 10 MG/ML 4 ML VIAL IV SCH ×2 (08:45→20:11)
[2017-06-21] MEDS: methylPREDNISolone SOD SUCCI 40 MG/ML 1 ML VIAL IV SCH (08:45)
[2017-06-21] MEDS: ESCITALOPRAM 20 MG TAB PO SCH (08:45)
[2017-06-21] MEDS: METOPROLOL TARTRATE 50 MG TAB PO SCH ×3 (08:45→17:49)
[2017-06-21] MEDS: SACUBITRIL/VALSARTAN 97 MG-103 MG TABLET PO SCH ×2 (08:46→22:44)
[2017-06-21] MEDS: hydrALAZINE HCL 25 MG TAB PO SCH ×3 (08:46→17:49)
--- NOTE | 2017-06-21 09:49 | P.PN ---
<Cathie Monk - Last Filed: 06/21/17 12:24> Progress Note - Text DATE OF SERVICE: 06/21/2017 PRESENTING COMPLAINT: Shortness of breath INTERVAL HISTORY: 61-year-old female with end-stage COPD presented with worsening shortness of breath wheezing and phlegm decreased appetite rundown and tired some edema. Acute on chronic congestive heart failure exacerbation, also found to be in atrial flutter/fibrillation, and hyperkalemic with potassium of 6.2. 06/21/2017: Patient seen in follow-up, no acute events overnight. 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 Eating about 50% of her meals, last BM 06/20/2017. Up in the chair for all meals. Ambulatory within the room. Potassium 4.6 today, improved from day of admission. Sodium 129 today. 06/20/2017: Patient seen in follow-up, no acute overnight events. Patient received sodium bicarbonate, Kayexalate, regular insulin, half an amp of dextrose, to assist in correction of potassium. Potassium now 5.1. Patient lying in bed, appears comfortable, breathing easily. Ambulatory within the room. Tolerating her diet eating 75%, and last BM yesterday. REVIEW OF SYSTEMS: Done for constitutional ,cardiovascular, GI, pulmonary with relevant findings as above. CURRENT MEDICATIONS [place], DuoNeb's, Eliquis, aspirin, Lipitor, Pulmicort, Plavix, Perforomist Lasix , Apresoline, Synthroid, Solu-Medrol, entresto PHYSICAL EXAM VITAL SIGNS: Temperature 97.9, pulse 90, respiratory rate 18, blood pressure 95/54, oxygen saturation 97% on 3 L. GENERAL APPEARANCE: Sitting at the bedside , appears comfortable EYES: Puffy, red Pupils equal. Conjunctiva normal. NECK: JVD unable to assess. Mass not palpable. RESPIRATORY: Respiratory effort mildly increased. Lungs diminished with prolonged expiration and wheezing. CARDIOVASCULAR: Irregular rhythm. Mild edema. ABDOMEN: Soft. Liver and spleen not palpable. No tenderness. No mass palpable. PSYCHIATRY: Alert and oriented x3. Mood and affect normal. INVESTIGATIONS: White blood cell count 11.3, sodium 129, potassium 4.6, BUN 62, creatinine 1.39 ASSESSMENT: -Acute on chronic congestive heart failure exacerbation from systolic dysfunction. Ejection fraction 30-35% from underlying coronary artery disease. -Atrial flutter,/fibrillation, uncontrolled on presentation, improving -Acute chronic obstructive pulmonary disease exacerbation and an end-stage type chronic obstructive pulmonary disease in an ex-smoker. -Restless leg syndrome. -Chronic fibromyalgia. -Essential hypertension. -Hyperlipidemia. -Primary osteoarthritis of multiple joints bilateral. -Chronic hypoxic respiratory failure from underlying chronic obstructive pulmonary disease on 2 L of oxygen at home. -Hypothyroidism. -Secondary pulmonary hypertension secondary to chronic obstructive pulmonate disease. -Severe tricuspid regurgitation, nonrheumatic. -Depression not otherwise specified. -Hyponatremia suspect hypoosmolar with fluid overload, slow to respond -Hyperkalemia improving PLAN: Continue IV Lasix for another day per cardiology, sodium remains low, continue fluid restriction, patient is fully aware of her fluid limits. Plan of care discussed with the patient at the bedside she is in agreement. We'll follow. PRECISION DANCER statement: Patient was seen and examined by nurse practitioner Cathie Monk and all elements of the case discussed with attending Dr. Ramos <Iglesia Ramos - Last Filed: 06/21/17 23:04> Progress Note - Text Attending note. Date of service-06/21/2017 This patient was seen and examined by me . Discussed the patient with my nurse practitioner Ms. Monk. Admitted with CHF exacerbation and a flutter fibrillation uncontrolled. Breathing is better. Did tolerate some diet. Did get up in the chair. On examination: Lungs-decreased breath sounds decreased wheezing, cardiovascular-heart is irregular, appears more rested Investigations: BUN 62, creatinine 1.39 sodium 129 telemetry-a flutter fibrillation with rate. Above 100 Chest x-ray reviewed-pulmonary edema with small pleural effusion Assessment and plan: Acute on chronic congestive heart failure exacerbation exacerbation with good clinical response to IV Lasix Atrial flutter fibrillation rate just above 100 Continue on IV Lasix. Care discussed with the patient. Clinically responding
--- NOTE | 2017-06-21 11:14 | P.PN ---
Subjective This is a pleasant 61-year-old female patient follows with Dr. Lloyd as her primary care physician. She has a history of atrial flutter/fibrillation with previous ablation anticoagulated with apixaban, coronary artery disease, congestive heart failure with an ejection fraction of 30-35%, severe pulmonary hypertension with an RVSP of 60 mmHg severe peripheral vascular disease,, gastroesophageal reflux disease, hyperlipidemia, hypertension, hypothyroidism. She also has a history of chronic obstructive pulmonary disease and is chronically on home oxygen at 2 L/m per nasal cannula. Her FEV1 value is 30% of predicted. She is a former smoker. She is on DuoNebs along with Pulmicort and Perforomist inhalations in the outpatient setting. She presented here to the emergency room yesterday with complaints of increasing shortness of breath, cough and congestion. She was treated with a Z-Zan in the outpatient setting without much improvement. Her chest x-ray shows evidence of cardiomegaly with mild venous congestion. Lab results show no leukocytosis. Hemoglobin stable. Her sodium was low at 128 and a potassium high at 6.2. She was also found to be quite hypothyroid with a TSH of 41 and a free T4 of 0.38, free T3 1 0.5. The patient is seen again today 06/20/2017 in follow-up on the selective care unit. She is awake and alert in no acute distress. She states she is breathing easier today as compared to yesterday. Her echocardiogram did reveal moderately impaired left ventricular systolic function with estimated ejection fraction 35-40%. She denies any chest pain, palpitations lightheadedness or dizziness. Her sodium is 127 with a creatinine of 1.40 and a potassium of 5.1. She is maintaining O2 saturations in the low 90s on 3 L/m per nasal cannula. The patient is seen again today 06/21/2017 in follow-up on the selective care unit. She is awake and alert in no acute distress. She is breathing quite a bit easier today as compared to yesterday. Nearly back to her baseline. She denies any worsening shortness of breath, cough or congestion. She is maintaining good O2 saturations in the upper 90s on 3 L/m per nasal cannula. She's been afebrile. Hemodynamically stable. Follow-up chest x-ray reveals cardiomegaly with mild pulmonary venous congestion. There is a small right- sided pleural effusion. She is currently on Lasix 40 mg IV every 12 hours. Objective - Vital Signs Vital signs: Vital Signs Temp 97.9 F 06/21/17 08:43 Pulse 90 06/21/17 08:43 Resp 18 06/21/17 08:45 BP 95/54 06/21/17 08:43 Pulse Ox 97 06/21/17 08:43 Intake & Output 06/20/17 06/21/17 06/21/17 18:59 06:59 18:59 Intake Total 420 240 Output Total 200 Balance 420 -200 240 Weight 75.8 kg Intake: Oral 420 240 Output: Urine 200 Other: Voiding Method Toilet Toilet Toilet # Voids 1 - Exam GENERAL EXAM: Obese. 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 Alert, comfortable in no apparent distress. HEAD: Normocephalic. EYES: Normal reaction of pupils, equal size. NOSE: Clear with pink turbinates. THROAT: No erythema or exudates. NECK: No masses, no JVD. CHEST: No chest wall deformity. LUNGS: Equal air entry with crackles in the bilateral posterior bases. CVS: S1 and S2 normal with no audible murmurs, regular rhythm. ABDOMEN: No hepatosplenomegaly, normal bowel sounds, no guarding or rigidity. Extremities: There is trace peripheral edema. No clubbing, no cyanosis. Peripheral pulses are intact. - Labs CBC & Chem 7: 06/21/17 06:03 06/21/17 06:03 Labs: Abnormal Lab Results - Last 24 Hours (Table) 06/20/17 06/20/17 06/20/17 Range/Units 11:33 16:30 20:55 WBC (3.8-10.6) k/uL MCV (80.0-100.0) fL RDW (11.5-15.5) % Neutrophils # (1.3-7.7) k/uL Lymphocytes # (1.0-4.8) k/uL Sodium (137-145) mmol/L Chloride (98-107) mmol/L Carbon Dioxide (22-30) mmol/L BUN (7-17) mg/dL Creatinine (0.52-1.04) mg/dL Glucose (74-99) mg/dL POC Glucose (mg/dL) 143 H 134 H 135 H (75-99) mg/dL Calcium (8.4-10.2) mg/dL 06/21/17 06/21/17 06/21/17 Range/Units 05:56 06:03 06:03 WBC 11.3 H (3.8-10.6) k/uL MCV 103.8 H (80.0-100.0) fL RDW 17.6 H (11.5-15.5) % Neutrophils # 10.3 H (1.3-7.7) k/uL Lymphocytes # 0.5 L (1.0-4.8) k/uL Sodium 129 L (137-145) mmol/L Chloride 83 L (98-107) mmol/L Carbon Dioxide 37 H (22-30) mmol/L BUN 62 H (7-17) mg/dL Creatinine 1.39 H (0.52-1.04) mg/dL Glucose 114 H (74-99) mg/dL POC Glucose (mg/dL) 128 H (75-99) mg/dL Calcium 8.0 L (8.4-10.2) mg/dL Assessment and Plan Plan: Impression: #1 Acute exacerbation of chronic obstructive pulmonary disease in a patient with a known history of severe COPD, oxygen dependent, FEV1 value 30% of predicted. #2 Acute exacerbation of chronic systolic congestive heart failure repeat echocardiogram reveals moderately impaired left ventricular systolic function with an ejection fraction 35-40%. #3 Severe pulmonary hypertension. #4 Chronic atrial fibrillation with rapid ventricular response at times. History of previous ablation. Anticoagulated with apixaban. #5 Restless leg syndrome. #6 Hypothyroidism. #7 Fibromyalgia. #8 Hyperlipidemia. #9 Hypertension. #10 Degenerative arthritis. #11 Poor overall functional performance secondary to the above-mentioned multiple comorbidities. Plan: The patient was seen and evaluated by Dr. Crowley. Her x-ray and labs were reviewed. We will continue with her current pulmonary medications. We'll decrease her IV site and Medrol to 40 mg every 12 hours. She remains on Lasix 40 mg IV every 12 hours. We'll increase her activity as tolerated. We'll continue to follow.
[2017-06-21 11:50] LABS: Glucose,Whole Blood 153 mg/dL (75-99)
--- NOTE | 2017-06-21 11:54 | P.PN ---
Subjective Principal diagnosis: Shortness of breath This is a 61-year-old female who follows regularly with Dr. Milian in the office. She has a known history of nonischemic cardiomyopathy, atrial fibrillation, hypertension, PAD with prior iliac stenting, prior arthrectomy of the right SFA, history of prior atrial flutter ablation, nicotine dependence, COPD on home O2, moderate coronary artery disease by cardiac catheterization, hypothyroidism, who presents to the hospital with symptoms of progressively worsening shortness of breath. She states that approximately 4 days ago she noticed herself to be getting more short of breath and feeling like she was coming down with something. Her physician started her on Zithromax and in spite of that she continued to feel worse. She does have a visiting nurse come to the home who recommended that she come to the emergency room for further evaluation. Blood pressure on arrival here 150/90, heart rate in the 130s, 77 % on 3 L of oxygen. Blood pressure this morning 120/70. White blood cell count 7.7, hemoglobin 13.5, platelet count 224. Sodium 128, potassium 6.2, BUN 33, creatinine 1.0. BNP level 9860. TSH 41, free T4 0.38, free T3 1 0.5. EKG on arrival here showed atrial fibrillation with a rapid ventricular response. Chest x-ray showed cardiomegaly and mild venous congestion. Nodule at the left lung base likely related to a nipple shadow. Patient has been initiated on IV antibiotics, and has also been given a dose of IV Solu-Medrol. It appears also that the patient has been initiated on IV Lasix. At the time of my examination , patient states she is already feeling somewhat better this morning. 06/21/2017 Patient seen and examined this morning, she did have an episode of shortness of breath last night, improved with deep breathing. Chest x-ray shows continued cardiomegaly with mild pulmonary venous congestion and small right-sided pleural effusion. She continues to be on IV Lasix. Sodium 129, BUN 62, creatinine 1.3. Blood pressure 95/50, 97% on 3 L. Objective - Vital Signs Vital signs: Vital Signs Temp 97.9 F 06/21/17 08:43 Pulse 90 06/21/17 11:51 Resp 18 06/21/17 08:45 BP 95/54 06/21/17 08:43 Pulse Ox 97 06/21/17 08:43 Intake & Output 06/20/17 06/21/17 06/21/17 18:59 06:59 18:59 Intake Total 420 240 Output Total 200 Balance 420 -200 240 Weight 75.8 kg Intake: Oral 420 240 Output: Urine 200 Other: Voiding Method Toilet Toilet Toilet # Voids 1 - Exam PHYSICAL EXAMINATION: HEENT: Head is atraumatic, normocephalic. Pupils equal, round. Neck is supple. There is no elevated jugular venous pressure. HEART EXAMINATION: Heart S1 and S2 irregularly irregular systolic murmur is heard. CHEST EXAMINATION: Lungs reveal decreased air exchange throughout with fine expiratory wheezing throughout. ABDOMEN: Soft, nontender. Bowel sounds are heard. No organomegaly noted. EXTREMITIES: 1+ peripheral pulses with no evidence of peripheral edema and no calf tenderness noted. NEUROLOGIC patient is awake, alert and oriented -3. - Labs CBC & Chem 7: 06/21/17 06:03 06/21/17 06:03 Labs: Abnormal Lab Results - Last 24 Hours (Table) 06/20/17 06/20/17 06/21/17 Range/Units 16:30 20:55 05:56 WBC (3.8-10.6) k/uL MCV (80.0-100.0) fL RDW (11.5-15.5) % Neutrophils # (1.3-7.7) k/uL Lymphocytes # (1.0-4.8) k/uL Sodium (137-145) mmol/L Chloride (98-107) mmol/L Carbon Dioxide (22-30) mmol/L BUN (7-17) mg/dL Creatinine (0.52-1.04) mg/dL Glucose (74-99) mg/dL POC Glucose (mg/dL) 134 H 135 H 128 H (75-99) mg/dL Calcium (8.4-10.2) mg/dL 06/21/17 06/21/17 06/21/17 Range/Units 06:03 06:03 11:48 WBC 11.3 H (3.8-10.6) k/uL MCV 103.8 H (80.0-100.0) fL RDW 17.6 H (11.5-15.5) % Neutrophils # 10.3 H (1.3-7.7) k/uL Lymphocytes # 0.5 L (1.0-4.8) k/uL Sodium 129 L (137-145) mmol/L Chloride 83 L (98-107) mmol/L Carbon Dioxide 37 H (22-30) mmol/L BUN 62 H (7-17) mg/dL Creatinine 1.39 H (0.52-1.04) mg/dL Glucose 114 H (74-99) mg/dL POC Glucose (mg/dL) 153 H (75-99) mg/dL Calcium 8.0 L (8.4-10.2) mg/dL Assessment and Plan Plan: Assessment and plan #1 acute exacerbation of COPD #2 systolic congestive heart failure acute on chronic #3 chronic persistent atrial fibrillation, on Eliquis for anticoagulation #4 hypothyroidism #5 PAD with prior intervention #6 history of nicotine dependence #7 hypertension #8 hyperlipidemia #9 hypothyroidism Plan I'm cardiology's perspective, we'll continue current dose of IV Lasix for 24 hours, in the morning change coordinator to oral diuretics and plan for possible discharge home in 24 hours if stable. DNP note has been reviewed, I agree with a documented findings and plan of care. Patient was seen and examined.
[2017-06-21 16:31] LABS: Glucose,Whole Blood 147 mg/dL (75-99)
[2017-06-21] MEDS: ATORVASTATIN 80 MG TAB PO SCH (20:11)
[2017-06-21] MEDS: ASPIRIN 81 MG CHEW PO SCH (20:11)
[2017-06-21 20:47] LABS: Glucose,Whole Blood 127 mg/dL (75-99)
[2017-06-21] MEDS ORDERED: methylPREDNISolone SOD SUCCI 40 MG/ML 1 ML VIAL IV SCH (21:00)
[2017-06-21] MEDS: LORazepam 0.5 MG TAB PO PRN (22:44)
[2017-06-22] MEDS: HYDROcodone/APAP 7.5-325MG 1 EACH TAB PO PRN ×2 (00:31→06:19)
[2017-06-22 06:13] LABS: Anisocytosis Slight; Basophils % (A) 0 %; CH 32.9; Eosinophils % (A) 0 %; HCT 42.8 % (34.0-46.0); HDW 2.71; HGB 12.9 gm/dL (11.4-16.0); Hypochromasia Slight; Luc % (Auto) 2; Lymphocytes # (A) 0.7 k/uL (1.0-4.8); Lymphocytes % (A) 6 %; MCH 32.2 pg (25.0-35.0); MCHC 30.1 g/dL (31.0-37.0); Macrocytosis Marked; Mean Platelet Volume 8.3; Monocytes # (A) 0.9 k/uL (0-1.0); Monocytes % (A) 8 %; Neutrophils # (A) 9.5 k/uL (1.3-7.7); Neutrophils % (A) 84 %; RDW 18.1 % (11.5-15.5); WBC 11.3 k/uL (3.8-10.6); WBC (Perox) 11.54
[2017-06-22] MEDS: LEVOTHYROXINE 125 MCG TAB PO SCH (06:18)
[2017-06-22 06:23] LABS: Glucose,Whole Blood 124 mg/dL (75-99)
[2017-06-22 06:28] LABS: Calcium 7.9 mg/dL (8.4-10.2); Potassium 5.2 mmol/L (3.5-5.1)
[2017-06-22] MEDS: INSULIN LISPRO (humaLOG) 300 UNIT/3 ML VIAL SQ SCH ×4 (06:41→22:28)
[2017-06-22] MEDS: FUROSEMIDE 10 MG/ML 4 ML VIAL IV SCH (06:55)
[2017-06-22] MEDS: FAMOTIDINE 20 MG TAB PO SCH (08:20)
[2017-06-22] MEDS: FERROUS SULFATE 325 MG TAB PO SCH ×2 (08:20→20:36)
[2017-06-22] MEDS: CLOPIDOGREL 75 MG TAB PO SCH (08:20)
[2017-06-22] MEDS: APIXABAN 5 MG TAB PO SCH (08:20)
[2017-06-22] MEDS: predniSONE 20 MG TAB PO SCH (08:20)
[2017-06-22] MEDS: ESCITALOPRAM 20 MG TAB PO SCH (08:20)
[2017-06-22] MEDS: BUDESONIDE 0.5 MG/2 ML NEBU INHALATION SCH ×2 (08:31→20:05)
[2017-06-22] MEDS: FORMOTEROL FUMARATE 20 MCG/2 ML NEBU INHALATION SCH ×2 (08:31→20:05)
[2017-06-22] MEDS: IPRATROPIUM-ALBUTEROL 3 ML NEB INHALATION SCH ×4 (08:32→20:05)
[2017-06-22 09:58] LABS: Manual Review Performed
[2017-06-22 11:31] LABS: Glucose,Whole Blood 133 mg/dL (75-99)
--- NOTE | 2017-06-22 11:36 | P.PN ---
Subjective This is a pleasant 61-year-old female patient follows with Dr. Lloyd as her primary care physician. She has a history of atrial flutter/fibrillation with previous ablation anticoagulated with apixaban, coronary artery disease, congestive heart failure with an ejection fraction of 30-35%, severe pulmonary hypertension with an RVSP of 60 mmHg severe peripheral vascular disease,, gastroesophageal reflux disease, hyperlipidemia, hypertension, hypothyroidism. She also has a history of chronic obstructive pulmonary disease and is chronically on home oxygen at 2 L/m per nasal cannula. Her FEV1 value is 30% of predicted. She is a former smoker. She is on DuoNebs along with Pulmicort and Perforomist inhalations in the outpatient setting. She presented here to the emergency room yesterday with complaints of increasing shortness of breath, cough and congestion. She was treated with a Z-Zan in the outpatient setting without much improvement. Her chest x-ray shows evidence of cardiomegaly with mild venous congestion. Lab results show no leukocytosis. Hemoglobin stable. Her sodium was low at 128 and a potassium high at 6.2. She was also found to be quite hypothyroid with a TSH of 41 and a free T4 of 0.38, free T3 1 0.5. The patient is seen again today 06/20/2017 in follow-up on the selective care unit. She is awake and alert in no acute distress. She states she is breathing easier today as compared to yesterday. Her echocardiogram did reveal moderately impaired left ventricular systolic function with estimated ejection fraction 35-40%. She denies any chest pain, palpitations lightheadedness or dizziness. Her sodium is 127 with a creatinine of 1.40 and a potassium of 5.1. She is maintaining O2 saturations in the low 90s on 3 L/m per nasal cannula. The patient is seen again today 06/21/2017 in follow-up on the selective care unit. She is awake and alert in no acute distress. She is breathing quite a bit easier today as compared to yesterday. Nearly back to her baseline. She denies any worsening shortness of breath, cough or congestion. She is maintaining good O2 saturations in the upper 90s on 3 L/m per nasal cannula. She's been afebrile. Hemodynamically stable. Follow-up chest x-ray reveals cardiomegaly with mild pulmonary venous congestion. There is a small right- sided pleural effusion. She is currently on Lasix 40 mg IV every 12 hours. The patient is seen again today 06/22/2017 and follow-up on foot care unit. She is currently resting quite comfortably in bed. She is awake and alert in no acute distress. She states she is still quite dyspneic on minimal exertion. Not quite back to her baseline. She is still somewhat bronchospastic and wheezy. She is maintaining O2 saturations in the high 90s on 2 L/m per nasal cannula. She's been afebrile. Her Lasix is currently on hold. She has had issues with hypotension and hyponatremia with a sodium of 125. Her creatinine is also worse at 1.90 with a BUN of 90. Objective - Vital Signs Vital signs: Vital Signs Temp 97.8 F 06/22/17 08:00 Pulse 98 06/22/17 08:58 Resp 20 06/22/17 08:00 BP 74/50 06/22/17 08:00 Pulse Ox 99 06/22/17 08:00 Intake & Output 06/21/17 06/22/17 06/22/17 18:59 06:59 18:59 Intake Total 480 720 120 Output Total 600 Balance 480 120 120 Weight 77.3 kg Intake: Oral 480 720 120 Output: Urine 600 Other: Voiding Method Toilet # Voids 2 1 - Exam GENERAL EXAM: Obese. 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 Alert, comfortable in no apparent distress. HEAD: Normocephalic. EYES: Normal reaction of pupils, equal size. NOSE: Clear with pink turbinates. THROAT: No erythema or exudates. NECK: No masses, no JVD. CHEST: No chest wall deformity. LUNGS: Equal air entry with crackles in the bilateral posterior bases. CVS: S1 and S2 normal with no audible murmurs, regular rhythm. ABDOMEN: No hepatosplenomegaly, normal bowel sounds, no guarding or rigidity. Extremities: There is trace peripheral edema. No clubbing, no cyanosis. Peripheral pulses are intact. - Labs CBC & Chem 7: 06/22/17 05:50 06/22/17 05:50 Labs: Abnormal Lab Results - Last 24 Hours (Table) 06/21/17 06/21/17 06/21/17 Range/Units 11:48 16:29 20:45 WBC (3.8-10.6) k/uL MCV (80.0-100.0) fL MCHC (31.0-37.0) g/dL RDW (11.5-15.5) % Neutrophils # (1.3-7.7) k/uL Lymphocytes # (1.0-4.8) k/uL Sodium (137-145) mmol/L Potassium (3.5-5.1) mmol/L Chloride (98-107) mmol/L Carbon Dioxide (22-30) mmol/L BUN (7-17) mg/dL Creatinine (0.52-1.04) mg/dL Glucose (74-99) mg/dL POC Glucose (mg/dL) 153 H 147 H 127 H (75-99) mg/dL Calcium (8.4-10.2) mg/dL 06/22/17 06/22/17 06/22/17 Range/Units 05:50 05:50 06:19 WBC 11.3 H (3.8-10.6) k/uL MCV 107.0 H (80.0-100.0) fL MCHC 30.1 L (31.0-37.0) g/dL RDW 18.1 H (11.5-15.5) % Neutrophils # 9.5 H (1.3-7.7) k/uL Lymphocytes # 0.7 L (1.0-4.8) k/uL Sodium 125 L (137-145) mmol/L Potassium 5.2 H (3.5-5.1) mmol/L Chloride 84 L (98-107) mmol/L Carbon Dioxide 35 H (22-30) mmol/L BUN 90 H* (7-17) mg/dL Creatinine 1.90 H (0.52-1.04) mg/dL Glucose 122 H (74-99) mg/dL POC Glucose (mg/dL) 124 H (75-99) mg/dL Calcium 7.9 L (8.4-10.2) mg/dL Assessment and Plan Plan: Impression: #1 Acute exacerbation of chronic obstructive pulmonary disease in a patient with a known history of severe COPD, oxygen dependent, FEV1 value 30% of predicted. #2 Acute exacerbation of chronic systolic congestive heart failure repeat echocardiogram reveals moderately impaired left ventricular systolic function with an ejection fraction 35-40%. #3 Severe pulmonary hypertension. #4 Chronic atrial fibrillation with rapid ventricular response at times. History of previous ablation. Anticoagulated with apixaban. #5 Restless leg syndrome. #6 Hypothyroidism. #7 Fibromyalgia. #8 Hyperlipidemia. #9 Hypertension. #10 Degenerative arthritis. #11 Acute renal failure secondary to diuretics and dehydration. Suspect cardiorenal syndrome. #12 Hyponatremia, current sodium 125. #13 Poor overall functional performance secondary to the above-mentioned multiple comorbidities. Plan: The patient was seen and evaluated by Dr. Crowley. Labs were reviewed. We will initiate 0.9 normal saline at 75 mL per hour in regards to her hyponatremia. We will continue with her current pulmonary medications. We'll increase her activity as tolerated. We'll continue to follow.
[2017-06-22 11:49] VITALS: BMI 29.2
[2017-06-22] MEDS: hydrALAZINE HCL 25 MG TAB PO SCH ×2 (13:31→17:08)
[2017-06-22] MEDS: METOPROLOL TARTRATE 50 MG TAB PO SCH ×2 (13:32→17:04)
[2017-06-22] MEDS: SACUBITRIL/VALSARTAN 97 MG-103 MG TABLET PO SCH ×2 (13:35→20:39)
[2017-06-22] MEDS: SODIUM CHLORIDE 0.9% 1,000 ML IV SCH (13:56)
--- NOTE | 2017-06-22 14:19 | P.PN ---
<Iglesia Ramos - Last Filed: 06/22/17 16:02> Progress Note - Text Attending note. Date of service-06/22/2017 This patient was seen and examined by me . Discussed the patient with my nurse practitioner Ms. Monk. More tired. More lethargic. Not eating much. On examination: Lethargic but arousable easily dozes off. Laying flat in bed. Lungs-decreased breath sounds decreased wheezing Investigations: Sodium 125, BUN 90, creatinine 1.90 Assessment and plan: Acute metabolic encephalopathy from renal failure. Acute renal failure that is prerenal from severe diuresis -Lasix been held. We will gently hydrate overnight. <Cathie Monk - Last Filed: 06/22/17 16:45> Progress Note - Text DATE OF SERVICE: 06/22/2017 PRESENTING COMPLAINT: Shortness of breath INTERVAL HISTORY: 61-year-old female with end-stage COPD presented with worsening shortness of breath wheezing and phlegm decreased appetite rundown and tired some edema. Acute on chronic congestive heart failure exacerbation, also found to be in atrial flutter/fibrillation, and hyperkalemic with potassium of 6.2. 06/22/2017: Patient seen in follow-up, states she did not sleep well. Atrial fib flutter continues with controlled rate 80s to 90s. Lasix on hold secondary to increase in BUN and creatinine as well as increase in potassium. Lying on the bed, just finishing breakfast ate about 40%, last BM 06/21/2017. Has been up the chair for all meals. Fluid restriction continues. Ambulatory within the room. 06/21/2017: Patient seen in follow-up, no acute events overnight. 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 Eating about 50% of her meals, last BM 06/20/2017. Up in the chair for all meals. Ambulatory within the room. Potassium 4.6 today, improved from day of admission. Sodium 129 today. 06/20/2017: Patient seen in follow-up, no acute overnight events. Patient received sodium bicarbonate, Kayexalate, regular insulin, half an amp of dextrose, to assist in correction of potassium. Potassium now 5.1. Patient lying in bed, appears comfortable, breathing easily. Ambulatory within the room. Tolerating her diet eating 75%, and last BM yesterday. REVIEW OF SYSTEMS: Done for constitutional ,cardiovascular, GI, pulmonary with relevant findings as above. CURRENT MEDICATIONS [place], DuoNeb's, Eliquis, aspirin, Lipitor, Pulmicort, Plavix, Perforomist Lasix , Apresoline, Synthroid, Solu-Medrol, entresto PHYSICAL EXAM VITAL SIGNS: Temperature 96.7, pulse 79, respiratory rate 20, blood pressure 86/50, oxygen saturation 94% on 3 L. GENERAL APPEARANCE: Lying on the bed, appears tired EYES: Puffy, red Pupils equal. Conjunctiva normal. NECK: JVD unable to assess. Mass not palpable. RESPIRATORY: Respiratory effort increased. Lungs diminished with prolonged expiration and wheezing. CARDIOVASCULAR: Irregular rhythm. Mild edema. ABDOMEN: Soft. Liver and spleen not palpable. No tenderness. No mass palpable. PSYCHIATRY: Alert and oriented x3. Mood and affect low. INVESTIGATIONS: White blood cell count 11.3, sodium 125, potassium 5.2, chloride 84, carbon dioxide 35, BUN 90, creatinine 1.90 Accu-Cheks noted ASSESSMENT: -Acute on chronic congestive heart failure exacerbation from systolic dysfunction. Ejection fraction 30-35% from underlying coronary artery disease with good clinical response to IV Lasix -Atrial flutter,/fibrillation, rate just above 100 improving -Acute chronic obstructive pulmonary disease exacerbation and an end-stage type chronic obstructive pulmonary disease in an ex-smoker. -Restless leg syndrome. -Chronic fibromyalgia. -Essential hypertension. -Hyperlipidemia. -Primary osteoarthritis of multiple joints bilateral. -Chronic hypoxic respiratory failure from underlying chronic obstructive pulmonary disease on 2 L of oxygen at home. -Hypothyroidism. -Secondary pulmonary hypertension secondary to chronic obstructive pulmonate disease. -Severe tricuspid regurgitation, nonrheumatic. -Depression not otherwise specified. -Hyponatremia slow to respond -Hyperkalemia slow to respond PLAN: Lasix on hold for now due to increase in BUN and creatinine. Continue fluid restriction in an effort to normalize sodium. We'll continue to monitor kidney function closely. We'll consider Kayexalate to normalize potassium. Continue bronchodilators and steroid taper. LAB SCIENTIST statement: Patient was seen and examined by nurse practitioner Cathie Monk and all elements of the case discussed with attending Dr. Ramos
--- NOTE | 2017-06-22 14:29 | P.PN ---
Subjective Principal diagnosis: shortness of breath This is a 61-year-old female who follows regularly with Dr. Payton in the office. She has a known history of nonischemic cardiomyopathy, atrial fibrillation, hypertension, PAD with prior iliac stenting, prior arthrectomy of the right SFA, history of prior atrial flutter ablation, nicotine dependence, COPD on home O2, moderate coronary artery disease by cardiac catheterization, hypothyroidism, who presents to the hospital with symptoms of progressively worsening shortness of breath. She states that approximately 4 days prior to admission she noticed herself to be getting more short of breath and feeling like she was coming down with something. Her physician started her on Zithromax and in spite of that she continued to feel worse. She does have a visiting nurse come to the home who recommended that she come to the emergency room for further evaluation. Blood pressure on arrival here 150/90, heart rate in the 130s, 77% on 3 L of oxygen. White blood cell count 7.7, hemoglobin 13.5, platelet count 224. Sodium 128, potassium 6.2, BUN 33, creatinine 1.0. BNP level 9860. TSH 41, free T4 0.38, free T3 1 0.5. EKG on arrival here showed atrial fibrillation with a rapid ventricular response. Chest x-ray showed cardiomegaly and mild venous congestion. Patient has been initiated on IV antibiotics, and has also been given a dose of IV Solu-Medrol as well as IV Lasix. At the time of my examination, patient states she is feeling somewhat better this morning but is feeling very tired. Her blood pressure remains on the low side and nursing staff has been holding Entresto. Laboratory values show worsening renal function with a BUN of 90 and creatinine 1.9. Objective - Vital Signs Vital signs: Vital Signs Temp 96.7 F L 06/22/17 12:00 Pulse 96 06/22/17 12:29 Resp 20 06/22/17 12:00 BP 86/50 06/22/17 12:00 Pulse Ox 94 L 06/22/17 12:00 Intake & Output 06/21/17 06/22/17 06/22/17 18:59 06:59 18:59 Intake Total 480 720 120 Output Total 600 Balance 480 120 120 Weight 77.3 kg 77.3 kg Intake: Oral 480 720 120 Output: Urine 600 Other: Voiding Method Toilet # Voids 2 1 - Exam PHYSICAL EXAMINATION: HEENT: Head is atraumatic, normocephalic. Pupils equal, round. Neck is supple. There is no elevated jugular venous pressure. HEART EXAMINATION: Heart sounds irregularly irregular, S1 and S2 normal with a systolic murmur. CHEST EXAMINATION: Lungs reveal diminished air entry throughout. No chest wall tenderness is noted on palpation or with deep breathing. ABDOMEN: Soft, nontender. Bowel sounds are heard. No organomegaly noted. EXTREMITIES:[ Diminished peripheral pulses with no evidence of peripheral edema and no calf tenderness noted]. NEUROLOGIC [patient is awake, alert and oriented x3.] . - Labs CBC & Chem 7: 06/22/17 05:50 06/22/17 05:50 Labs: Abnormal Lab Results - Last 24 Hours (Table) 06/21/17 06/21/17 06/22/17 Range/Units 16:29 20:45 05:50 WBC 11.3 H (3.8-10.6) k/uL MCV 107.0 H (80.0-100.0) fL MCHC 30.1 L (31.0-37.0) g/dL RDW 18.1 H (11.5-15.5) % Neutrophils # 9.5 H (1.3-7.7) k/uL Lymphocytes # 0.7 L (1.0-4.8) k/uL Sodium (137-145) mmol/L Potassium (3.5-5.1) mmol/L Chloride (98-107) mmol/L Carbon Dioxide (22-30) mmol/L BUN (7-17) mg/dL Creatinine (0.52-1.04) mg/dL Glucose (74-99) mg/dL POC Glucose (mg/dL) 147 H 127 H (75-99) mg/dL Calcium (8.4-10.2) mg/dL 06/22/17 06/22/17 06/22/17 Range/Units 05:50 06:19 11:29 WBC (3.8-10.6) k/uL MCV (80.0-100.0) fL MCHC (31.0-37.0) g/dL RDW (11.5-15.5) % Neutrophils # (1.3-7.7) k/uL Lymphocytes # (1.0-4.8) k/uL Sodium 125 L (137-145) mmol/L Potassium 5.2 H (3.5-5.1) mmol/L Chloride 84 L (98-107) mmol/L Carbon Dioxide 35 H (22-30) mmol/L BUN 90 H* (7-17) mg/dL Creatinine 1.90 H (0.52-1.04) mg/dL Glucose 122 H (74-99) mg/dL POC Glucose (mg/dL) 124 H 133 H (75-99) mg/dL Calcium 7.9 L (8.4-10.2) mg/dL Assessment and Plan Plan: Assessment and plan #1 acute exacerbation of COPD #2 acute on chronic systolic congestive heart failure #3 chronic atrial fibrillation, on by mouth anticoagulation #4 hypothyroidism #5 PAD with prior intervention #6 history of nicotine dependence #7 hypertension, currently hypotensive #8 hyperlipidemia #9 worsening renal function From cardiology's perspective, we will discontinue IV Lasix. We will recheck renal function in the morning, will reassess diuretics at that time. Further recommendations to follow. OXYACETYLENE CUTTER note has been reviewed, I agree with a documented findings and plan of care. Patient was seen and examined.
[2017-06-22 16:43] LABS: Glucose,Whole Blood 132 mg/dL (75-99)
[2017-06-22] MEDS: ASPIRIN 81 MG CHEW PO SCH (20:36)
[2017-06-22] MEDS: APIXABAN 2.5 MG TABLET PO SCH (20:36)
[2017-06-22] MEDS: ATORVASTATIN 80 MG TAB PO SCH (20:39)
[2017-06-22 21:21] LABS: Glucose,Whole Blood 158 mg/dL (75-99)
[2017-06-23] MEDS: SACUBITRIL/VALSARTAN 97 MG-103 MG TABLET PO SCH ×2 (02:08→08:26)
[2017-06-23] MEDS: LEVOTHYROXINE 125 MCG TAB PO SCH (06:04)
[2017-06-23 06:07] LABS: Glucose,Whole Blood 102 mg/dL (75-99)
[2017-06-23] MEDS: INSULIN LISPRO (humaLOG) 300 UNIT/3 ML VIAL SQ SCH ×4 (06:07→21:10)
[2017-06-23] MEDS: SODIUM CHLORIDE 0.9% 1,000 ML IV SCH ×2 (06:34→12:13)
[2017-06-23 06:58] LABS: Calcium 7.4 mg/dL (8.4-10.2); Potassium 4.9 mmol/L (3.5-5.1)
[2017-06-23] MEDS: METOPROLOL TARTRATE 50 MG TAB PO SCH ×3 (08:26→17:05)
[2017-06-23] MEDS: predniSONE 20 MG TAB PO SCH (08:27)
[2017-06-23] MEDS: CLOPIDOGREL 75 MG TAB PO SCH (08:27)
[2017-06-23] MEDS: APIXABAN 2.5 MG TABLET PO SCH ×2 (08:27→21:44)
[2017-06-23] MEDS: ESCITALOPRAM 20 MG TAB PO SCH (08:27)
[2017-06-23] MEDS: FERROUS SULFATE 325 MG TAB PO SCH ×2 (08:27→21:43)
[2017-06-23] MEDS: hydrALAZINE HCL 25 MG TAB PO SCH ×3 (08:27→17:05)
[2017-06-23] MEDS: FAMOTIDINE 20 MG TAB PO SCH (08:27)
[2017-06-23] MEDS: BUDESONIDE 0.5 MG/2 ML NEBU INHALATION SCH ×2 (09:01→20:16)
[2017-06-23] MEDS: IPRATROPIUM-ALBUTEROL 3 ML NEB INHALATION SCH ×4 (09:01→20:16)
[2017-06-23] MEDS: FORMOTEROL FUMARATE 20 MCG/2 ML NEBU INHALATION SCH ×2 (09:02→20:16)
[2017-06-23] MEDS: LORazepam 0.5 MG TAB PO PRN (10:24)
--- NOTE | 2017-06-23 10:48 | P.PN ---
Subjective Principal diagnosis: shortness of breath This is a 61-year-old female who follows regularly with Dr. Payton in the office. She has a known history of nonischemic cardiomyopathy, atrial fibrillation, hypertension, PAD with prior iliac stenting, prior arthrectomy of the right SFA, history of prior atrial flutter ablation, nicotine dependence, COPD on home O2, moderate coronary artery disease by cardiac catheterization, hypothyroidism, who presents to the hospital with symptoms of progressively worsening shortness of breath. She states that approximately 4 days prior to admission she noticed herself to be getting more short of breath and feeling like she was coming down with something. Her physician started her on Zithromax and in spite of that she continued to feel worse. She does have a visiting nurse come to the home who recommended that she come to the emergency room for further evaluation. Blood pressure on arrival here 150/90, heart rate in the 130s, 77% on 3 L of oxygen. White blood cell count 7.7, hemoglobin 13.5, platelet count 224. Sodium 128, potassium 6.2, BUN 33, creatinine 1.0. BNP level 9860. TSH 41, free T4 0.38, free T3 1 0.5. EKG on arrival here showed atrial fibrillation with a rapid ventricular response. Chest x-ray showed cardiomegaly and mild venous congestion. Patient has been initiated on IV antibiotics, and has also been given a dose of IV Solu-Medrol as well as IV Lasix. At the time of my examination, anjum continues to c/o feeling tired, not sleeping well. She does however seem more awake today. Her blood pressure is somewhat better today and she has been given her morning dose of Entresto. Laboratory values showed worsening renal function yesterday with a BUN of 90 and creatinine 1.9 and lasix has been placed on hold. Repeat Bun 90 adn creatinine 1.82 this morning. Objective - Vital Signs Vital signs: Vital Signs Temp 98.1 F 06/23/17 08:00 Pulse 78 06/23/17 09:16 Resp 16 06/23/17 09:16 BP 101/51 06/23/17 08:00 Pulse Ox 93 L 06/23/17 08:00 Intake & Output 06/22/17 06/23/17 06/23/17 18:59 06:59 18:59 Intake Total 270 775 200 Output Total 550 500 Balance 270 225 -300 Weight 77.3 kg 78.3 kg Intake: Intake, IV Titration 150 375 Amount Sodium Chloride 0.9% 1, 150 375 000 ml @ 75 mls/hr IV . [id number] [facility] Rx#:[id number] Oral 120 400 200 Output: Urine 550 500 Other: Voiding Method Toilet # Voids 1 0 # Bowel Movements 0 - Exam PHYSICAL EXAMINATION: HEENT: Head is atraumatic, normocephalic. Pupils equal, round. Neck is supple. There is no elevated jugular venous pressure. HEART EXAMINATION: Heart sounds irregularly irregular, S1 and S2 normal with a systolic murmur. CHEST EXAMINATION: Lungs reveal diminished air entry throughout. No chest wall tenderness is noted on palpation or with deep breathing. ABDOMEN: Soft, nontender. Bowel sounds are heard. No organomegaly noted. EXTREMITIES: Diminished peripheral pulses with evidence of trace peripheral edema and no calf tenderness noted. NEUROLOGIC patient is awake, alert and oriented x3. . - Labs CBC & Chem 7: 06/22/17 05:50 06/23/17 05:42 Labs: Abnormal Lab Results - Last 24 Hours (Table) 06/22/17 06/22/17 06/22/17 Range/Units 11:29 16:42 21:20 Sodium (137-145) mmol/L Chloride (98-107) mmol/L Carbon Dioxide (22-30) mmol/L BUN (7-17) mg/dL Creatinine (0.52-1.04) mg/dL Glucose (74-99) mg/dL POC Glucose (mg/dL) 133 H 132 H 158 H (75-99) mg/dL Calcium (8.4-10.2) mg/dL 06/23/17 06/23/17 Range/Units 05:42 06:05 Sodium 128 L (137-145) mmol/L Chloride 88 L (98-107) mmol/L Carbon Dioxide 35 H (22-30) mmol/L BUN 90 H* (7-17) mg/dL Creatinine 1.82 H (0.52-1.04) mg/dL Glucose 100 H (74-99) mg/dL POC Glucose (mg/dL) 102 H (75-99) mg/dL Calcium 7.4 L (8.4-10.2) mg/dL Assessment and Plan Plan: Assessment and plan #1 acute exacerbation of COPD #2 acute on chronic systolic congestive heart failure #3 chronic atrial fibrillation, on by mouth anticoagulation #4 hypothyroidism #5 PAD with prior intervention #6 history of nicotine dependence #7 hypertension, currently hypotensive #8 hyperlipidemia #9 worsening renal function From cardiology's perspective, we will continue to hold lasix. We will resume at 80mg PO BID starting tomorrow morning. We will continue to monitor renal function. We anticipate the patient will be discharged home in the next 24 to 48 hours. MEDICAL ANTHROPOLOGIST note has been reviewed, I agree with a documented findings and plan of care. Patient was seen and examined.
[2017-06-23 11:07] LABS: Glucose,Whole Blood 120 mg/dL (75-99)
--- NOTE | 2017-06-23 11:57 | P.PN ---
Subjective Progress note dated 06/23/2017 This is a 61-year-old female who was being seen primarily for CHF. The patient sees Chika Lloyd as her primary. We seen her the last 4 days. We saw in consultation and follow-up. Doing better. She states that she may be discharged home tomorrow. Her heart failure has improved dramatically. She does have an ejection fraction of 30-35% and evidence of pulmonary pretension with there are the SPF 60 mmHg. She also suffers from peripheral vascular occlusive disease GERD hyperlipidemia hypertension and hypothyroidism. She also has a history of atrial fibrillation/flutter. She does have a history of CAD as well. Again doing better on all accounts with possible discharge tomorrow. Objective - Vital Signs Vital signs: Vital Signs Temp 97.7 F 06/23/17 11:49 Pulse 56 L 06/23/17 11:49 Resp 20 06/23/17 11:49 BP 83/56 06/23/17 11:49 Pulse Ox 95 06/23/17 11:49 Intake & Output 06/22/17 06/23/17 06/23/17 18:59 06:59 18:59 Intake Total 270 775 200 Output Total 550 500 Balance 270 225 -300 Weight 77.3 kg 78.3 kg Intake: Intake, IV Titration 150 375 Amount Sodium Chloride 0.9% 1, 150 375 000 ml @ 75 mls/hr IV . [id number] [facility] Rx#:[id number] Oral 120 400 200 Output: Urine 550 500 Other: Voiding Method Toilet # Voids 1 0 # Bowel Movements 0 - Exam No acute distress, oriented 3. 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 HEENT examination is grossly unremarkable. Mixed membranes are moist. No oral lesions. Neck supple. Full range of motion. No adenopathy thyromegaly or neck vein distention. Cardiovascular examination reveals regular rhythm rate. S1-S2 normal. No murmur. No S3-S4. Lungs reveal few scattered basilar crackles. Breath sounds have improved. Breath sounds are equal bilaterally. No rhonchi or wheezes. Abdomen is obese bowel sounds are heard. Extremities are intact. Minimal edema. Skin without rash. Neurologic examination is nonfocal. - Labs CBC & Chem 7: 06/22/17 05:50 06/23/17 05:42 Labs: Abnormal Lab Results - Last 24 Hours (Table) 06/22/17 06/22/17 06/23/17 Range/Units 16:42 21:20 05:42 Sodium 128 L (137-145) mmol/L Chloride 88 L (98-107) mmol/L Carbon Dioxide 35 H (22-30) mmol/L BUN 90 H* (7-17) mg/dL Creatinine 1.82 H (0.52-1.04) mg/dL Glucose 100 H (74-99) mg/dL POC Glucose (mg/dL) 132 H 158 H (75-99) mg/dL Calcium 7.4 L (8.4-10.2) mg/dL 06/23/17 06/23/17 Range/Units 06:05 11:05 Sodium (137-145) mmol/L Chloride (98-107) mmol/L Carbon Dioxide (22-30) mmol/L BUN (7-17) mg/dL Creatinine (0.52-1.04) mg/dL Glucose (74-99) mg/dL POC Glucose (mg/dL) 102 H 120 H (75-99) mg/dL Calcium (8.4-10.2) mg/dL Assessment and Plan (1) COPD exacerbation Status: Acute (2) Congestive heart failure Status: Acute (3) Hypothyroidism Status: Acute (4) Acute respiratory failure Status: Acute (5) Atrial fibrillation with RVR Status: Acute (6) Atrial flutter Status: Acute (7) CAD (coronary artery disease) Status: Acute (8) Hypothyroid Status: Acute (9) Nicotine dependence Status: Acute (10) PAD (peripheral artery disease) Status: Acute (11) Systolic CHF, acute on chronic Status: Acute (12) Tachyarrhythmia Status: Acute Plan: Plan dated 06/23/2017 The patient's doing well. I'll review the medications labs and x-rays. The patient may be discharged tomorrow according to her. She feeling much improved. We'll follow up as needed. No additional recommendations are made. Time with Patient: Less than 30
--- NOTE | 2017-06-23 15:35 | P.PN ---
Progress Note - Text Attending note. Date of service-06/23/2017 This patient was seen and examined by me . Discussed the patient with my nurse practitioner Ms. Monk. Feeling better today. More awake. With more awake.. Laying in bed. Breathing better. On examination: Lungs-decreased breath sounds, psychiatry is more awake alert Investigations: Sodium 128, BMI 19, creatinine 1.82 Assessment and plan: Acute renal failure from diuresis-improving slowly CHF-stabilized Doing better. Continue the medication to the plan. Follow electrolytes closely
[2017-06-23 17:09] LABS: Glucose,Whole Blood 205 mg/dL (75-99)
[2017-06-23] MEDS: HYDROcodone/APAP 7.5-325MG 1 EACH TAB PO PRN (19:32)
[2017-06-23 20:59] LABS: Glucose,Whole Blood 129 mg/dL (75-99)
[2017-06-23] MEDS: ATORVASTATIN 80 MG TAB PO SCH (21:43)
[2017-06-23] MEDS: ASPIRIN 81 MG CHEW PO SCH (21:44)
[2017-06-24 05:28] LABS: Glucose,Whole Blood 91 mg/dL (75-99)
[2017-06-24] MEDS: INSULIN LISPRO (humaLOG) 300 UNIT/3 ML VIAL SQ SCH ×4 (06:08→22:33)
[2017-06-24] MEDS: LEVOTHYROXINE 125 MCG TAB PO SCH (06:31)
[2017-06-24] MEDS: SODIUM CHLORIDE 0.9% 1,000 ML IV SCH (06:32)
[2017-06-24 06:47] LABS: Anisocytosis Slight; Basophils % (A) 0 %; CH 32.8; CHCM 31.2; Eosinophils % (A) 0 %; HDW 2.72; HGB 11.7 gm/dL (11.4-16.0); Hypochromasia Slight; Luc # (Auto) 0.22; Luc % (Auto) 3; Lymphocytes # (A) 0.7 k/uL (1.0-4.8); Lymphocytes % (A) 10 %; MCH 31.8 pg (25.0-35.0); MCV 105.9 fL (80.0-100.0); Macrocytosis Marked; Mean Platelet Volume 8.2; Monocytes # (A) 0.7 k/uL (0-1.0); Monocytes % (A) 11 %; Neutrophils # (A) 5.2 k/uL (1.3-7.7); Neutrophils % (A) 76 %; RBC 3.69 m/uL (3.80-5.40); WBC 6.9 k/uL (3.8-10.6); WBC (Perox) 6.96
[2017-06-24 07:01] LABS: Potassium 4.8 mmol/L (3.5-5.1)
[2017-06-24] MEDS: SACUBITRIL/VALSARTAN 97 MG-103 MG TABLET PO SCH ×3 (07:26→22:33)
[2017-06-24] MEDS: ESCITALOPRAM 20 MG TAB PO SCH (08:15)
[2017-06-24] MEDS: FERROUS SULFATE 325 MG TAB PO SCH ×2 (08:15→22:33)
[2017-06-24] MEDS: predniSONE 20 MG TAB PO SCH (08:15)
[2017-06-24] MEDS: METOPROLOL TARTRATE 50 MG TAB PO SCH ×3 (08:15→17:08)
[2017-06-24] MEDS: FUROSEMIDE 80 MG TAB PO SCH ×2 (08:15→17:08)
[2017-06-24] MEDS: CLOPIDOGREL 75 MG TAB PO SCH (08:15)
[2017-06-24] MEDS: FAMOTIDINE 20 MG TAB PO SCH (08:15)
[2017-06-24] MEDS: APIXABAN 2.5 MG TABLET PO SCH ×2 (08:15→22:32)
[2017-06-24] MEDS: hydrALAZINE HCL 25 MG TAB PO SCH ×3 (08:16→17:08)
[2017-06-24] MEDS: FORMOTEROL FUMARATE 20 MCG/2 ML NEBU INHALATION SCH ×2 (09:24→20:13)
[2017-06-24] MEDS: BUDESONIDE 0.5 MG/2 ML NEBU INHALATION SCH ×2 (09:24→20:13)
[2017-06-24] MEDS: IPRATROPIUM-ALBUTEROL 3 ML NEB INHALATION SCH ×4 (09:24→20:14)
--- NOTE | 2017-06-24 10:37 | P.PN ---
Subjective Progress note dated 06/23/2017 This is a 61-year-old female who was being seen primarily for CHF. The patient sees Chika Lloyd as her primary. We seen her the last 4 days. We saw in consultation and follow-up. Doing better. She states that she may be discharged home tomorrow. Her heart failure has improved dramatically. She does have an ejection fraction of 30-35% and evidence of pulmonary pretension with there are the SPF 60 mmHg. She also suffers from peripheral vascular occlusive disease GERD hyperlipidemia hypertension and hypothyroidism. She also has a history of atrial fibrillation/flutter. She does have a history of CAD as well. Again doing better on all accounts with possible discharge tomorrow. Progress note dated 06/24/2017 61-year-old female admitted with a diagnosis of CHF. The patient sees Chika Apodaca as her primary physician. We've been seeing her since she's had been admitted to the hospital on the states she's been a bit better. Feeling much improved. She probably could be discharged home. She mentions that she might be discharged home today. The patient has an ejection fraction of 30-35%. Also with a history of pulmonary hypertension. Her right ventricular systolic pressure is estimated to be 60 mmHg. She also suffers from peripheral vascular occlusive disease gastroesophageal reflux disease hyperlipidemia hypertension and hypothyroidism. She also has a history of atrial fibrillation/flutter. Objective - Vital Signs Vital signs: Vital Signs Temp 98.1 F 06/24/17 08:00 Pulse 102 H 06/24/17 09:26 Resp 20 06/24/17 09:26 BP 107/60 06/24/17 08:00 Pulse Ox 98 06/24/17 08:00 Intake & Output 06/23/17 06/24/17 06/24/17 18:59 06:59 18:59 Intake Total 920 200 180 Output Total 900 250 625 Balance 20 -50 -445 Weight 78.3 kg Intake: Intake, IV Titration 500 Amount Sodium Chloride 0.9% 1, 200 000 ml @ 50 mls/hr IV . Q20H [facility] Rx#:[id number] Sodium Chloride 0.9% 1, 300 000 ml @ 75 mls/hr IV . [id number] [facility] Rx#:[id number] Oral 420 200 180 Output: Urine 900 250 625 Other: Voiding Method Toilet # Voids 0 # Bowel Movements 0 1 - Exam No acute distress, oriented 3. 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 HEENT examination is grossly unremarkable. Mixed membranes are moist. No oral lesions. Neck supple. Full range of motion. No adenopathy thyromegaly or neck vein distention. Cardiovascular examination reveals regular rhythm rate. S1-S2 normal. No murmur. No S3-S4. Lungs reveal few scattered basilar crackles. Breath sounds have improved. Breath sounds are equal bilaterally. No rhonchi or wheezes. Abdomen is obese bowel sounds are heard. Extremities are intact. Minimal edema. Skin without rash. Neurologic examination is nonfocal. - Labs CBC & Chem 7: 06/24/17 05:29 06/24/17 05:29 Labs: Abnormal Lab Results - Last 24 Hours (Table) 06/23/17 06/23/17 06/23/17 Range/Units 11:05 17:03 20:57 RBC (3.80-5.40) m/uL MCV (80.0-100.0) fL MCHC (31.0-37.0) g/dL RDW (11.5-15.5) % Plt Count (150-450) k/uL Lymphocytes # (1.0-4.8) k/uL Sodium (137-145) mmol/L Chloride (98-107) mmol/L Carbon Dioxide (22-30) mmol/L BUN (7-17) mg/dL Creatinine (0.52-1.04) mg/dL POC Glucose (mg/dL) 120 H 205 H 129 H (75-99) mg/dL Calcium (8.4-10.2) mg/dL 06/24/17 06/24/17 Range/Units 05:29 05:29 RBC 3.69 L (3.80-5.40) m/uL MCV 105.9 H (80.0-100.0) fL MCHC 30.0 L (31.0-37.0) g/dL RDW 18.0 H (11.5-15.5) % Plt Count 146 L (150-450) k/uL Lymphocytes # 0.7 L (1.0-4.8) k/uL Sodium 132 L (137-145) mmol/L Chloride 92 L (98-107) mmol/L Carbon Dioxide 35 H (22-30) mmol/L BUN 69 H (7-17) mg/dL Creatinine 1.20 H (0.52-1.04) mg/dL POC Glucose (mg/dL) (75-99) mg/dL Calcium 8.0 L (8.4-10.2) mg/dL Assessment and Plan (1) COPD exacerbation Status: Acute (2) Congestive heart failure Status: Acute (3) Hypothyroidism Status: Acute (4) Acute respiratory failure Status: Acute (5) Atrial fibrillation with RVR Status: Acute (6) Atrial flutter Status: Acute (7) CAD (coronary artery disease) Status: Acute (8) Hypothyroid Status: Acute (9) Nicotine dependence Status: Acute (10) PAD (peripheral artery disease) Status: Acute (11) Systolic CHF, acute on chronic Status: Acute (12) Tachyarrhythmia Status: Acute Plan: Plan dated 06/23/2017 The patient's doing well. I'll review the medications labs and x-rays. The patient may be discharged tomorrow according to her. She feeling much improved. We'll follow up as needed. No additional recommendations are made. Plan dated 06/24/2017 The patient seemed be doing better. Less short of breath. Feeling better. Moving air better. The patient has improved each day. Possible discharge home today. Denies any fever chills. No cough. No phlegm production. No urinary complaints. No nausea vomiting or diarrhea. Time with Patient: Less than 30
[2017-06-24 12:02] LABS: Glucose,Whole Blood 118 mg/dL (75-99)
[2017-06-24] MEDS: HYDROcodone/APAP 7.5-325MG 1 EACH TAB PO PRN ×2 (12:13→23:58)
--- NOTE | 2017-06-24 14:55 | P.PN ---
Progress Note - Text DATE OF SERVICE: 06/23/2017 PRESENTING COMPLAINT: Shortness of breath INTERVAL HISTORY: 61-year-old female with end-stage COPD presented with worsening shortness of breath wheezing and phlegm decreased appetite rundown and tired some edema. Acute on chronic congestive heart failure exacerbation, also found to be in atrial flutter/fibrillation, and hyperkalemic with potassium of 6.2. 06/23/2017: Patient seen in follow-up, complains of feeling tired. Atrial fibrillation/ flutter continue rate controlled 80s to 90s. Lasix continues to be on hold due to elevated BUN and creatinine. Sitting up at the bedside, ate about 30% of her breakfast ambulatory within the room, last BM 06/21/2017. 06/22/2017: Patient seen in follow-up, states she did not sleep well. Atrial fib flutter continues with controlled rate 80s to 90s. Lasix on hold secondary to increase in BUN and creatinine as well as increase in potassium. Lying on the bed, just finishing breakfast ate about 40%, last BM 06/21/2017. Has been up the chair for all meals. Fluid restriction continues. Ambulatory within the room. 06/21/2017: Patient seen in follow-up, no acute events overnight. 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 Eating about 50% of her meals, last BM 06/20/2017. Up in the chair for all meals. Ambulatory within the room. Potassium 4.6 today, improved from day of admission. Sodium 129 today. 06/20/2017: Patient seen in follow-up, no acute overnight events. Patient received sodium bicarbonate, Kayexalate, regular insulin, half an amp of dextrose, to assist in correction of potassium. Potassium now 5.1. Patient lying in bed, appears comfortable, breathing easily. Ambulatory within the room. Tolerating her diet eating 75%, and last BM yesterday. REVIEW OF SYSTEMS: Done for constitutional ,cardiovascular, GI, pulmonary with relevant findings as above. CURRENT MEDICATIONS [place], DuoNeb's, Eliquis, aspirin, Lipitor, Pulmicort, Plavix, Perforomist Lasix , Apresoline, Synthroid, Solu-Medrol, entresto PHYSICAL EXAM VITAL SIGNS: Temperature 97.7, pulse 56, respirations 20, blood pressure 83/56, oxygen saturation 95% on 3 L. GENERAL APPEARANCE: Sitting up on the edge of the bed, appears tired EYES: Puffy, red Pupils equal. Conjunctiva normal. NECK: JVD unable to assess. Mass not palpable. RESPIRATORY: Respiratory effort increased. Lungs diminished with prolonged expiration and wheezing. CARDIOVASCULAR: Irregular rhythm. Mild edema. ABDOMEN: Soft. Liver and spleen not palpable. No tenderness. No mass palpable. PSYCHIATRY: Alert and oriented x3. Mood and affect low. INVESTIGATIONS: Sodium 128, BUN 90 creatinine 1.82, Accu-Cheks noted. ASSESSMENT: -Acute on chronic congestive heart failure exacerbation from systolic dysfunction. Ejection fraction 30-35% from underlying coronary artery disease with good clinical response to IV Lasix -Acute renal failure that is prerenal from severe diuresis, slow to respond -Acute metabolic encephalopathy from renal failure slow to respond -Atrial flutter,/fibrillation, rate just above 100 improving -Acute chronic obstructive pulmonary disease exacerbation and an end-stage type chronic obstructive pulmonary disease in an ex-smoker. -Restless leg syndrome. -Chronic fibromyalgia. -Essential hypertension. -Hyperlipidemia. -Primary osteoarthritis of multiple joints bilateral. -Chronic hypoxic respiratory failure from underlying chronic obstructive pulmonary disease on 2 L of oxygen at home. -Hypothyroidism. -Secondary pulmonary hypertension secondary to chronic obstructive pulmonate disease. -Severe tricuspid regurgitation, nonrheumatic. -Depression not otherwise specified. -Hyponatremia slow to respond -Hyperkalemia slow to respond PLAN: Lasix on hold for now due to increase in BUN and creatinine. Continue fluid restriction to normalize sodium. We'll continue to monitor kidney function closely. Continue bronchodilators and steroid taper. WOODEN FURNITURE POLISHER statement: Patient was seen and examined by nurse practitioner Cathie Monk and all elements of the case discussed with attending Dr. Ramos
--- NOTE | 2017-06-24 15:07 | P.PN ---
<Cathie Monk Abhilash - Last Filed: 06/24/17 14:55> Progress Note - Text DATE OF SERVICE: 06/24/2017 PRESENTING COMPLAINT: Shortness of breath INTERVAL HISTORY: 61-year-old female with end-stage COPD presented with worsening shortness of breath wheezing and phlegm decreased appetite rundown and tired some edema. Acute on chronic congestive heart failure exacerbation, also found to be in atrial flutter/fibrillation, and hyperkalemic with potassium of 6.2. 06/24/2017: Patient seen in follow-up, states she had a rough night. Didn't sleep well. Atrial fibrillation, flutter continues rate controlled between 80s and 90s. Lasix restarted today 80 mg twice a day. Sodium 132, fluid restriction continues. BUN and creatinine 69/1.20 respectively. Ate about 30% of her breakfast, ambulatory within the room last BM 06/23/2017. 06/23/2017: Patient seen in follow-up, complains of feeling tired. Appears tired. Atrial fibrillation/flutter continue rate controlled 80s to 90s. Lasix continues to be on hold due to elevated BUN and creatinine. Sitting up at the bedside, ate about 30% of her breakfast ambulatory within the room, last BM 06/21/2017. 06/22/2017: Patient seen in follow-up, states she did not sleep well. Atrial fib flutter continues with controlled rate 80s to 90s. Lasix on hold secondary to increase in BUN and creatinine as well as increase in potassium. Lying on the bed, just finishing breakfast ate about 40%, last BM 06/21/2017. Has been up the chair for all meals. Fluid restriction continues. Ambulatory within the room. 06/21/2017: Patient seen in follow-up, no acute events overnight. 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 Eating about 50% of her meals, last BM 06/20/2017. Up in the chair for all meals. Ambulatory within the room. Potassium 4.6 today, improved from day of admission. Sodium 129 today. 06/20/2017: Patient seen in follow-up, no acute overnight events. Patient received sodium bicarbonate, Kayexalate, regular insulin, half an amp of dextrose, to assist in correction of potassium. Potassium now 5.1. Patient lying in bed, appears comfortable, breathing easily. Ambulatory within the room. Tolerating her diet eating 75%, and last BM yesterday. REVIEW OF SYSTEMS: Done for constitutional ,cardiovascular, GI, pulmonary with relevant findings as above. CURRENT MEDICATIONS [place], DuoNeb's, Eliquis, aspirin, Lipitor, Pulmicort, Plavix, Perforomist Lasix , Apresoline, Synthroid, Solu-Medrol, entresto PHYSICAL EXAM VITAL SIGNS: Temperature 98.1, pulse 78, respirations 20, blood pressure 107/60, oxygen saturation 98% on 3 L. GENERAL APPEARANCE: Lying in the bed, appears tired EYES: Puffy, red Pupils equal. Conjunctiva normal. NECK: JVD unable to assess. Mass not palpable. RESPIRATORY: Respiratory effort increased. Lungs diminished with prolonged expiration and wheezing. CARDIOVASCULAR: Irregular rhythm. Mild edema. ABDOMEN: Soft. Liver and spleen not palpable. No tenderness. No mass palpable. PSYCHIATRY: Alert and oriented x3. Mood and affect low, appears tired. INVESTIGATIONS: White blood cell count 6.9, sodium 132, BUN 69, creatinine 1.20, Accu-Cheks noted. ASSESSMENT: -Acute on chronic congestive heart failure exacerbation from systolic dysfunction. Ejection fraction 30-35% from underlying coronary artery disease with good clinical response to IV Lasix -Acute renal failure that is prerenal from severe diuresis, slow to respond -Acute metabolic encephalopathy from renal failure slow to respond -Atrial flutter,/fibrillation, rate just above 100 improving -Acute chronic obstructive pulmonary disease exacerbation and an end-stage type chronic obstructive pulmonary disease in an ex-smoker. -Restless leg syndrome. -Chronic fibromyalgia. -Essential hypertension. -Hyperlipidemia. -Primary osteoarthritis of multiple joints bilateral. -Chronic hypoxic respiratory failure from underlying chronic obstructive pulmonary disease on 2 L of oxygen at home. -Hypothyroidism. -Secondary pulmonary hypertension secondary to chronic obstructive pulmonate disease. -Severe tricuspid regurgitation, nonrheumatic. -Depression not otherwise specified. -Hyponatremia slow to respond -Hyperkalemia slow to respond PLAN: Lasix reinitiated 80 mg PO twice a day. Continue fluid restriction to normalize sodium. We'll continue to monitor kidney function closely. Continue bronchodilators and steroid taper. We'll see how she feels tomorrow possible discharge. Plan of care discussed with patient she is in agreement. GALLEY WORKER statement: Patient was seen and examined by nurse practitioner Cathie Monk and all elements of the case discussed with attending Dr. Ramos <Iglesia Ramos - Last Filed: 06/24/17 17:10> Progress Note - Text Attending note. Date of service-06/24/2017 This patient was seen and examined by me . Discussed the patient with my nurse practitioner Jovan Aleshia. Tired but feeling better. Wants to be in bed. Eating somewhat better. On examination: Lungs-decreased breath sounds, cardiovascular-a regular heart sounds, psychiatry -minute more awake answering questions Investigations: BUN 69, creatinine 1.20 Assessment and plan: CHF-improved. Acute renal failure-improving. Metabolic encephalopathy improving. Lasix started today. Sodium better. Hopefully home tomorrow. Care discussed with the patient. Heart rates less than 100.
[2017-06-24 17:46] LABS: Glucose,Whole Blood 142 mg/dL (75-99)
[2017-06-24 21:16] LABS: Glucose,Whole Blood 217 mg/dL (75-99)
[2017-06-24] MEDS: ASPIRIN 81 MG CHEW PO SCH (22:33)
[2017-06-24] MEDS: ATORVASTATIN 80 MG TAB PO SCH (22:33)
[2017-06-25] MEDS: LORazepam 0.5 MG TAB PO PRN (02:27)
[2017-06-25] MEDS: SODIUM CHLORIDE 0.9% 1,000 ML IV SCH (02:33)
[2017-06-25 05:53] LABS: Anisocytosis Slight; Basophils % (A) 0 %; CH 32.8; CHCM 31.2; Eosinophils % (A) 0 %; HCT 38.9 % (34.0-46.0); HDW 2.76; HGB 11.9 gm/dL (11.4-16.0); Hypochromasia Slight; Luc # (Auto) 0.21; Luc % (Auto) 4; Lymphocytes # (A) 0.5 k/uL (1.0-4.8); Lymphocytes % (A) 9 %; MCH 32.5 pg (25.0-35.0); MCHC 30.7 g/dL (31.0-37.0); Macrocytosis Marked; Mean Platelet Volume 8.2; Monocytes # (A) 0.5 k/uL (0-1.0); Monocytes % (A) 9 %; Neutrophils # (A) 4.5 k/uL (1.3-7.7); Neutrophils % (A) 78 %; RBC 3.67 m/uL (3.80-5.40); RDW 17.7 % (11.5-15.5); WBC 5.8 k/uL (3.8-10.6); WBC (Perox) 6.18
[2017-06-25] MEDS: LEVOTHYROXINE 125 MCG TAB PO SCH (06:08)
[2017-06-25 06:09] LABS: Blood Urea Nitrogen 55 mg/dL (7-17); Calcium 8.1 mg/dL (8.4-10.2); Chloride 93 mmol/L (98-107); Glucose 83 mg/dL (74-99); Non-African American GFR(MDRD) 50 (>60 ml/min/1.73 sqM); Potassium 4.4 mmol/L (3.5-5.1); Sodium 135 mmol/L (137-145)
[2017-06-25] MEDS: INSULIN LISPRO (humaLOG) 300 UNIT/3 ML VIAL SQ SCH ×2 (06:09→12:17)
[2017-06-25 06:10] LABS: Glucose,Whole Blood 102 mg/dL (75-99)
[2017-06-25 06:16] LABS: Anion Gap 1 mmol/L
[2017-06-25 06:32] LABS: Carbon Dioxide 41 mmol/L (22-30)
[2017-06-25] MEDS: hydrALAZINE HCL 25 MG TAB PO SCH ×2 (08:19→12:17)
[2017-06-25] MEDS: METOPROLOL TARTRATE 50 MG TAB PO SCH ×2 (08:19→12:17)
[2017-06-25] MEDS: FERROUS SULFATE 325 MG TAB PO SCH (08:20)
[2017-06-25] MEDS: FUROSEMIDE 80 MG TAB PO SCH (08:20)
[2017-06-25] MEDS: CLOPIDOGREL 75 MG TAB PO SCH (08:20)
[2017-06-25] MEDS: ESCITALOPRAM 20 MG TAB PO SCH (08:20)
[2017-06-25] MEDS: APIXABAN 2.5 MG TABLET PO SCH (08:20)
[2017-06-25] MEDS: FAMOTIDINE 20 MG TAB PO SCH (08:20)
[2017-06-25] MEDS: predniSONE 20 MG TAB PO SCH (08:20)
[2017-06-25] MEDS: SACUBITRIL/VALSARTAN 97 MG-103 MG TABLET PO SCH (08:20)
[2017-06-25] MEDS: IPRATROPIUM-ALBUTEROL 3 ML NEB INHALATION SCH ×2 (08:56→12:07)
[2017-06-25] MEDS: FORMOTEROL FUMARATE 20 MCG/2 ML NEBU INHALATION SCH (08:57)
[2017-06-25] MEDS: BUDESONIDE 0.5 MG/2 ML NEBU INHALATION SCH (08:57)
[2017-06-25 09:28] VITALS: RESP 18
[2017-06-25] MEDS: HYDROcodone/APAP 7.5-325MG 1 EACH TAB PO PRN (11:08)
[2017-06-25 11:34] VITALS: BP 99/51; TEMP 98.2
--- NOTE | 2017-06-25 11:35 | P.PN ---
Subjective Principal diagnosis: Shortness of breath This is a 61-year-old female who follows regularly with Dr. Milian in the office. She has a known history of nonischemic cardiomyopathy, atrial fibrillation, hypertension, PAD with prior iliac stenting, prior arthrectomy of the right SFA, history of prior atrial flutter ablation, nicotine dependence, COPD on home O2, moderate coronary artery disease by cardiac catheterization, hypothyroidism, who presents to the hospital with symptoms of progressively worsening shortness of breath. She states that approximately 4 days ago she noticed herself to be getting more short of breath and feeling like she was coming down with something. Her physician started her on Zithromax and in spite of that she continued to feel worse. She does have a visiting nurse come to the home who recommended that she come to the emergency room for further evaluation. Blood pressure on arrival here 150/90, heart rate in the 130s, 77 % on 3 L of oxygen. Blood pressure this morning 120/70. White blood cell count 7.7, hemoglobin 13.5, platelet count 224. Sodium 128, potassium 6.2, BUN 33, creatinine 1.0. BNP level 9860. TSH 41, free T4 0.38, free T3 1 0.5. EKG on arrival here showed atrial fibrillation with a rapid ventricular response. Chest x-ray showed cardiomegaly and mild venous congestion. Nodule at the left lung base likely related to a nipple shadow. Patient has been initiated on IV antibiotics, and has also been given a dose of IV Solu-Medrol. It appears also that the patient has been initiated on IV Lasix. At the time of my examination , patient states she is already feeling somewhat better this morning. 06/21/2017 Patient seen and examined this morning, she did have an episode of shortness of breath last night, improved with deep breathing. Chest x-ray shows continued cardiomegaly with mild pulmonary venous congestion and small right-sided pleural effusion. She continues to be on IV Lasix. Sodium 129, BUN 62, creatinine 1.3. Blood pressure 95/50, 97% on 3 L. 06/25/2017 Patient seen and examined this morning, complaints of feeling tired. Denies any shortness of breath, lungs are much improved overall. Blood pressure 90 systolic. Patient has been encouraged to be up in the chair more. Objective - Vital Signs Vital signs: Vital Signs Temp 97.8 F 06/25/17 08:00 Pulse 88 06/25/17 09:28 Resp 18 06/25/17 08:00 BP 83/52 06/25/17 08:00 Pulse Ox 95 06/25/17 09:01 Intake & Output 06/24/17 06/25/17 06/25/17 18:59 06:59 18:59 Intake Total 300 10 200 Output Total 625 900 Balance -325 -890 200 Weight 76.8 kg Intake: Intake, IV Titration 10 0 Amount Sodium Chloride 0.9% 1, 10 0 000 ml @ 50 mls/hr IV . Q20H [facility] Rx#:[id number] Oral 300 200 Output: Urine 625 900 Other: Voiding Method Toilet # Voids 2 - Exam PHYSICAL EXAMINATION: HEENT: Head is atraumatic, normocephalic. Pupils equal, round. Neck is supple. There is no elevated jugular venous pressure. HEART EXAMINATION: Heart S1 and S2 irregularly irregular systolic murmur is heard. CHEST EXAMINATION: Lungs reveal improvement in air entry bilaterally ABDOMEN: Soft, nontender. Bowel sounds are heard. No organomegaly noted. EXTREMITIES: 1+ peripheral pulses with no evidence of peripheral edema and no calf tenderness noted. NEUROLOGIC patient is awake, alert and oriented -3. - Labs CBC & Chem 7: 06/25/17 05:31 06/25/17 05:31 Labs: Abnormal Lab Results - Last 24 Hours (Table) 06/24/17 06/24/17 06/24/17 Range/Units 11:51 17:16 21:14 RBC (3.80-5.40) m/uL MCV (80.0-100.0) fL MCHC (31.0-37.0) g/dL RDW (11.5-15.5) % Lymphocytes # (1.0-4.8) k/uL Sodium (137-145) mmol/L Chloride (98-107) mmol/L Carbon Dioxide (22-30) mmol/L BUN (7-17) mg/dL Creatinine (0.52-1.04) mg/dL POC Glucose (mg/dL) 118 H 142 H 217 H (75-99) mg/dL Calcium (8.4-10.2) mg/dL 06/25/17 06/25/17 06/25/17 Range/Units 05:31 05:31 06:09 RBC 3.67 L (3.80-5.40) m/uL MCV 106.0 H (80.0-100.0) fL MCHC 30.7 L (31.0-37.0) g/dL RDW 17.7 H (11.5-15.5) % Lymphocytes # 0.5 L (1.0-4.8) k/uL Sodium 135 L (137-145) mmol/L Chloride 93 L (98-107) mmol/L Carbon Dioxide 41 H* (22-30) mmol/L BUN 55 H (7-17) mg/dL Creatinine 1.10 H (0.52-1.04) mg/dL POC Glucose (mg/dL) 102 H (75-99) mg/dL Calcium 8.1 L (8.4-10.2) mg/dL Assessment and Plan Plan: Assessment and plan #1 acute exacerbation of COPD #2 systolic congestive heart failure acute on chronic #3 chronic persistent atrial fibrillation, on Eliquis for anticoagulation #4 hypothyroidism #5 PAD with prior intervention #6 history of nicotine dependence #7 hypertension #8 hyperlipidemia #9 hypothyroidism Plan From cardiology's perspective, we will recommend to continue the patient on her current medications. She may be able to be discharged once cleared by primary, we will make her a follow-up appointment in the office post discharge. DNP note has been reviewed, I agree with a documented findings and plan of care. Patient was seen and examined.
[2017-06-25 12:11] LABS: Glucose,Whole Blood 149 mg/dL (75-99)
[2017-06-25 12:19] VITALS: PULSE 89
--- NOTE | 2017-06-25 15:27 | P.PN ---
Subjective This is a pleasant 61-year-old female patient follows with Dr. Lloyd as her primary care physician. She has a history of atrial flutter/fibrillation with previous ablation anticoagulated with apixaban, coronary artery disease, congestive heart failure with an ejection fraction of 30-35%, severe pulmonary hypertension with an RVSP of 60 mmHg severe peripheral vascular disease,, gastroesophageal reflux disease, hyperlipidemia, hypertension, hypothyroidism. She also has a history of chronic obstructive pulmonary disease and is chronically on home oxygen at 2 L/m per nasal cannula. Her FEV1 value is 30% of predicted. She is a former smoker. She is on DuoNebs along with Pulmicort and Perforomist inhalations in the outpatient setting. She presented here to the emergency room yesterday with complaints of increasing shortness of breath, cough and congestion. She was treated with a Z-Zan in the outpatient setting without much improvement. Her chest x-ray shows evidence of cardiomegaly with mild venous congestion. Lab results show no leukocytosis. Hemoglobin stable. Her sodium was low at 128 and a potassium high at 6.2. She was also found to be quite hypothyroid with a TSH of 41 and a free T4 of 0.38, free T3 1 0.5. Over the past several days, the patient was treated for an acute COPD exacerbation and CHF exacerbation. She is feeling better and I'm seeing her today on 06/25/2017 in a Follow-up. She is obviously short of breath. She has no chest pain. No significant sputum production. She is able to speak of. This is without having to make it stop. No nausea. No vomiting. No change in mental status. No other significant events overnight. Note that the patient was being diuresis with IV Lasix 40 mg every 12 hours and her most recent chest x-ray showed cardiomegaly and mild pulmonary vascular congestion and small bilateral pleural effusion. Sodium level is at 135. Creatinine is stable at 1.1. Objective - Vital Signs Vital signs: Vital Signs Temp 98.2 F 06/25/17 11:31 Pulse 87 06/25/17 12:07 Resp 18 06/25/17 11:31 BP 99/51 06/25/17 11:31 Pulse Ox 98 06/25/17 11:31 Intake & Output 06/24/17 06/25/17 06/25/17 18:59 06:59 18:59 Intake Total 300 10 200 Output Total 625 900 Balance -325 -890 200 Weight 76.8 kg Intake: Intake, IV Titration 10 0 Amount Sodium Chloride 0.9% 1, 10 0 000 ml @ 50 mls/hr IV . Q20H [facility] Rx#:[id number] Oral 300 200 Output: Urine 625 900 Other: Voiding Method Toilet # Voids 2 - Exam Head exam was generally normal. There was no scleral icterus or corneal arcus. Mucous membranes were moist. The patient is cushingoid features. No goiter or neck masses. Lungs sounds are diminished bilaterally along with that there is prolongation of expiratory phase of breathing and scattered expiratory wheezes throughout the lung reynolds.Cardiac exam revealed the PMI to be normally situated and sized. The rhythm was regular and no extrasystoles were noted during several minutes of auscultation. The first and second heart sounds were normal and physiologic splitting of the second heart sound was noted. There were no murmurs, rubs, clicks, or gallops.Abdominal exam revealed normal bowel sounds. The abdomen was soft, non-tender, and without masses, organomegaly, or appreciable enlargement of the abdominal aorta. Extremities reveal trace edema and there is no cyanosis or clubbing at this point. - Labs CBC & Chem 7: 06/25/17 05:31 06/25/17 05:31 Labs: Abnormal Lab Results - Last 24 Hours (Table) 06/24/17 06/24/17 06/25/17 Range/Units 17:16 21:14 05:31 RBC (3.80-5.40) m/uL MCV (80.0-100.0) fL MCHC (31.0-37.0) g/dL RDW (11.5-15.5) % Lymphocytes # (1.0-4.8) k/uL Sodium 135 L (137-145) mmol/L Chloride 93 L (98-107) mmol/L Carbon Dioxide 41 H* (22-30) mmol/L BUN 55 H (7-17) mg/dL Creatinine 1.10 H (0.52-1.04) mg/dL POC Glucose (mg/dL) 142 H 217 H (75-99) mg/dL Calcium 8.1 L (8.4-10.2) mg/dL 06/25/17 06/25/17 06/25/17 Range/Units 05:31 06:09 12:06 RBC 3.67 L (3.80-5.40) m/uL MCV 106.0 H (80.0-100.0) fL MCHC 30.7 L (31.0-37.0) g/dL RDW 17.7 H (11.5-15.5) % Lymphocytes # 0.5 L (1.0-4.8) k/uL Sodium (137-145) mmol/L Chloride (98-107) mmol/L Carbon Dioxide (22-30) mmol/L BUN (7-17) mg/dL Creatinine (0.52-1.04) mg/dL POC Glucose (mg/dL) 102 H 149 H (75-99) mg/dL Calcium (8.4-10.2) mg/dL Assessment and Plan Plan: Assessment 1 advanced oxygen-dependent COPD, severe with an FEV1 of 30% of predicted, 2 Re-hospitalization for an acute COPD exacerbation, this is a readmission for this patient was unable to stay at home for more than 24 hours and she had to come back for increased shortness of breath and it's a fibrillation with rapid ventricular response. 3 CHF with an ejection fraction of 30% of predicted with severe p hypertension 4 chronic atrial fibrillation with rapid ventricular response at a time of admission 5 oropharyngeal thrush treated with Diflucan. 6 restless leg syndrome 7 fibromyalgia 8 hyperlipidemia 9 hypertension 10 diffuse degenerative arthritis involving multiple joints 11 hypothyroidism 12 worsening in lower extremity edema 13 impaired performance and functional status secondary to above-mentioned comorbidities. Plan The patient is doing better. The patient is stable for now. Agree for discharge from the pulmonary standpoint. Resume outpatient medications.The patient will be going home on a combination of Perforomist and Pulmicort neb last treatment twice a day, DuoNeb neb last treatment every 6-8 hours on a when necessary basis, prednisone burst taper, anticoagulation, and the patient will be seen back in follow-up in the office.
--- NOTE | 2017-06-25 20:22 | P.DS ---
<Iglesia Raoms - Last Filed: 06/26/17 20:19> Providers Date of admission: 06/18/17 20:15 Attending physician: Iglesia Ramos Consults: 06/18/17 20:15 Consult Physician Routine Consulting Provider: Belkis Guallpa Consult Reason/Comments: dyspnea Do you want consulting provider notified?: Yes Consult Physician Routine Consulting Provider: Jony Luther Consult Reason/Comments: dyspnea, chf Do you want consulting provider notified?: Yes Primary care physician: [facility] Course: Attending note. Date of service-06/17/2017 This patient was seen and examined by me . Discussed the patient with my nurse practitioner Ms. Monk. Feeling better. Eating better. Less tired On examination: Lungs-decreased breath sounds, cardiovascular heart sounds are irregular, more awake Investigations: BUN 55, creatinine 1.10 Assessment and plan: CHF improved. Hyponatremia improved. Atrial flutter fibrillation. Stable for discharge. Discussed with the patient. Discharge planning more than 35 minutes Plan - Discharge Summary New Discharge Prescriptions: New Furosemide [Lasix] 80 mg PO BID@0900,1600 #60 tab predniSONE 10 mg PO DAILY #30 tab Continue Levothyroxine Sodium [Synthroid] 125 mcg PO DAILY@0600 Metoprolol Tartrate [Lopressor] 50 mg PO TID@0800,1200,1700 Levalbuterol Tartrate [Xopenex Hfa Inhaler] 2 puff INHALATION RT-Q6H PRN PRN Reason: Shortness Of Breath hydrALAZINE HCL [Apresoline] 25 mg PO TID@0800,1200,1700 Aspirin EC [Ecotrin Low Dose] 81 mg PO HS@2100 Melatonin 5 mg PO HS PRN PRN Reason: Insomnia Famotidine [Pepcid] 20 mg PO DAILY@0800 LORazepam [Ativan] 0.5 mg PO Q8H PRN #20 tab PRN Reason: Anxiety Ferrous Sulfate [Iron (65 MG Elemental)] 325 mg PO BID@0800,2100 Clopidogrel [Plavix] 75 mg PO DAILY@0800 Apixaban [Eliquis] 5 mg PO BID@0800,2100 Atorvastatin [Lipitor] 80 mg PO HS@2100 Formoterol Fumarate [Perforomist] 20 mcg INHALATION RT-BID@0800,1700 Potassium Chloride [K-Tab ER] 20 meq PO DAILY #1 tablet.er HYDROcodone/APAP 7.5-325MG [[place] 7.5-325] 1 tab PO Q6HR PRN PRN Reason: Pain Escitalopram [Lexapro] 20 mg PO DAILY Ipratropium-Albuterol Nebulize [Duoneb 0.5 mg-3 mg/3 ml Soln] 3 ml INHALATION RT-BID PRN PRN Reason: Shortness Of Breath Or Wheezing Sacubitril/Valsartan [Entresto 97 mg-103 mg Tablet] 1 tab PO BID Budesonide [Pulmicort] 0.5 mg INHALATION RT-BID Discontinued Furosemide [Lasix] 40 mg PO HS Furosemide [Lasix] 80 mg PO DAILY Discharge Medication List Levothyroxine Sodium [Synthroid] 125 mcg PO DAILY@0600 05/14/15 [History] Metoprolol Tartrate [Lopressor] 50 mg PO TID@0800,1200,1700 08/02/15 [History] Levalbuterol Tartrate [Xopenex Hfa Inhaler] 2 puff INHALATION RT-Q6H PRN [History] hydrALAZINE HCL [Apresoline] 25 mg PO TID@0800,1200,1700 03/24/16 [History] Aspirin EC [Ecotrin Low Dose] 81 mg PO HS@209912/14/16 [History] Famotidine [Pepcid] 20 mg PO DAILY@0800 12/14/16 [History] Melatonin 5 mg PO HS PRN 12/14/16 [History] LORazepam [Ativan] 0.5 mg PO Q8H PRN #20 tab 12/29/16 [Rx] Apixaban [Eliquis] 5 mg PO BID@0800,209901/15/17 [History] Atorvastatin [Lipitor] 80 mg PO HS@209901/15/17 [History] Clopidogrel [Plavix] 75 mg PO DAILY@0800 01/15/17 [History] Ferrous Sulfate [Iron (65 MG Elemental)] 325 mg PO BID@0800,2100 01/15/17 [ History] Formoterol Fumarate [Perforomist] 20 mcg INHALATION RT-BID@0800,1700 01/15/17 [ History] Potassium Chloride [K-Tab ER] 20 meq PO DAILY #1 tablet.er 01/22/17 [Rx] Budesonide [Pulmicort] 0.5 mg INHALATION RT-BID 06/18/17 [History] Escitalopram [Lexapro] 20 mg PO DAILY 06/18/17 [History] HYDROcodone/APAP 7.5-325MG [[place] 7.5-325] 1 tab PO Q6HR PRN 06/18/17 [History] Ipratropium-Albuterol Nebulize [Duoneb 0.5 mg-3 mg/3 ml Soln] 3 ml INHALATION RT -BID PRN 06/18/17 [History] Sacubitril/Valsartan [Entresto 97 mg-103 mg Tablet] 1 tab PO BID 06/18/17 [ History] Furosemide [Lasix] 80 mg PO BID@0900,1600 #60 tab 06/24/17 [Rx] predniSONE 10 mg PO DAILY #30 tab 06/25/17 [Rx] Follow up Appointment(s)/Referral(s): Jaleel Payton MD [STAFF PHYSICIAN] - 06/28/17 2:30 pm [facility], [NON-STAFF] - George Lloyd DO [Primary Care Provider] - 06/27/17 11:30 am Ambulatory/Diagnostic Orders: Basic Metabolic Panel [LAB.AMB] Location: Determined By Patient Basic Metabolic Panel [LAB.AMB] Location: Determined By Patient Patient Instructions/Handouts: Heart Failure (ED), Heart Failure (DC) Activity/Diet/Wound Care/Special Instructions: bradleyquis clarify and continue home dose Discharge Disposition: HOME SELF-CARE <Cathie Monk - Last Filed: 06/26/17 20:46> Providers Expected date of discharge: 06/25/17 Hospital Course: FINAL DIAGNOSES: -Acute on chronic congestive heart failure exacerbation from systolic dysfunction. Ejection fraction 30-35% from underlying coronary artery disease with good clinical response to IV Lasix -Acute renal failure that is prerenal from severe diuresis, -Acute metabolic encephalopathy from renal failure -Persistent Atrial flutter,/fibrillation, rate just above 100 improving -Acute chronic obstructive pulmonary disease exacerbation and an end-stage type chronic obstructive pulmonary disease in an ex-smoker. -Restless leg syndrome. -Chronic fibromyalgia. -Essential hypertension. -Hyperlipidemia. -Primary osteoarthritis of multiple joints bilateral. -Chronic hypoxic respiratory failure from underlying chronic obstructive pulmonary disease on 2 L of oxygen at home. -Hypothyroidism. -Secondary pulmonary hypertension secondary to chronic obstructive pulmonate disease. -Severe tricuspid regurgitation, nonrheumatic. -Depression not otherwise specified. -Hyponatremia suspect hypoosmolar with fluid overload -Hyperkalemia HOSPTIAL COURSE: 61-year-old female with end-stage COPD presented with worsening shortness of breath, wheezing and phlegm decreased appetite rundown and tired with some edema. Found to have an acute on chronic congestive heart failure exacerbation , also found to be in a flutter/fibrillation and hyperkalemia. Patient admitted cardiology and pulmonology consulted. Patient received sodium bicarbonate Kayexalate Regular Insulin and dextrose for potassium correction. Received Lasix for fluid mobilization, bronchodilators and steroids for breathing. Developed subsequent hyponatremia for which her fluids were restricted. Sodium normalized. Developed increasing tiredness and lethargy due to acute renal failure due to severe diuresis, Lasix held kidney function improved as did energy level and alertness. Atrial fibrillation/flutter treated with Lopressor and Eliquis for anticoagulation needs. Overall patient condition improved and stabilized patient walking to and from the bathroom, tolerating her diet, breathing back to patient's normal baseline does use home O2. Last BM 06/23/2017. Condition stable and patient ready for discharge. PHYSICAL EXAM: PSYCHIATRY: Alert and oriented 3 mood and affect appropriate for the situation. CARDIOVASCULAR: Irregular rhythm, no edema noted. RESPIRATORY: Respiratory effort mildly increased, bilateral lung sounds diminished with prolonged expiration and wheezing. Patient was seen and examined by nurse practitioner Cathie Monk in all elements of the case discussed with attending Dr. Ramos DISPOSITION: Home with home care
[2017-06-25] MEDS ORDERED: APIXABAN 5 MG TAB PO SCH (21:00)
== END 2017-06-25 14:34 | disposition home health service (06) | DRG 291 ==
LOC: EC 15:13 → 6SEL 20:15
PROVIDERS: ADMIT Hospitalist; ATTEND Hospitalist
DX: I11.0 Hypertensive heart disease with heart failure (principal); G93.41 Metabolic encephalopathy; N17.9 Acute kidney failure, unspecified; J96.11 Chronic respiratory failure with hypoxia; B37.0 Candidal stomatitis; J44.1 Chronic obstructive pulmonary disease with (acute) exacerbation; E87.1 Hypo-osmolality and hyponatremia; I48.1 Persistent atrial fibrillation; I48.92 Unspecified atrial flutter; I50.23 Acute on chronic systolic (congestive) heart failure; I27.2 Other secondary pulmonary hypertension; I95.9 Hypotension, unspecified; I42.9 Cardiomyopathy, unspecified; E87.5 Hyperkalemia; E86.0 Dehydration; I07.1 Rheumatic tricuspid insufficiency; E78.5 Hyperlipidemia, unspecified; M19.91 Primary osteoarthritis, unspecified site; K21.9 Gastro-esophageal reflux disease without esophagitis; G25.81 Restless legs syndrome; M79.7 Fibromyalgia; E03.9 Hypothyroidism, unspecified; I73.9 Peripheral vascular disease, unspecified; F17.200 Nicotine dependence, unspecified, uncomplicated; F40.240 Claustrophobia; T50.2X5A Adverse effect of carbonic-anhydrase inhibitors, benzothiadiazides and other diuretics, initial encounter; I25.10 Atherosclerotic heart disease of native coronary artery without angina pectoris; I25.2 Old myocardial infarction; F32.9 Major depressive disorder, single episode, unspecified; Z79.01 Long term (current) use of anticoagulants; Z79.82 Long term (current) use of aspirin; Z79.02 Long term (current) use of antithrombotics/antiplatelets; Z79.51 Long term (current) use of inhaled steroids; Z79.899 Other long term (current) drug therapy; Z86.010 Personal history of colon polyps; Z99.81 Dependence on supplemental oxygen; Z88.1 Allergy status to other antibiotic agents; Z88.8 Allergy status to other drugs, medicaments and biological substances; Z82.49 Family history of ischemic heart disease and other diseases of the circulatory system
CPT/HCPCS: 36415; 71020; 80048; 80053; 82550; 82553; 83036; 83735; 83880; 83930; 84132; 84439; 84443; 84481; 84484; 85025; 85610; 85730; 93306; 94640; 94760

== ENCOUNTER 2017-07-09 12:02 | Inpatient (IN) | payer MEDICARE, OTHER ==
[2017-07-09] MEDS ORDERED: NITROGLYCERIN OINT 1 INCH/GM PACKET TOPICAL STA (12:24)
[2017-07-09] MEDS ORDERED: FUROSEMIDE 10 MG/ML 4 ML VIAL IV STA (12:24)
--- NOTE | 2017-07-09 13:15 | ED ---
SOB HPI - General Chief Complaint: Shortness of Breath Stated Complaint: KIDNEY, LIVER LEVELS, EXCESS FLUID Time Seen by Provider: 07/09/17 12:24 Source: patient, RN notes reviewed Mode of arrival: wheelchair Limitations: no limitations - History of Present Illness Initial Comments: This is a 61-year-old female with a history of CHF her recent hospitalization was sent over by her wave guide assembler today because of shortness of breath 20 pound weight gain in the last week or so. She denies any fevers chills nausea vomiting sweats she does feel as she did before hospitalized last time. She has any history of atrial fibrillation. MD Complaint: shortness of breath - Related Data Home Medications Medication Instructions Recorded Confirmed Levothyroxine Sodium [Synthroid] 125 mcg PO DAILY@0600 05/14/15 07/09/17 Metoprolol Tartrate [Lopressor] 50 mg PO TID@0800,1200,1700 08/02/15 07/09/17 Levalbuterol Tartrate [Xopenex Hfa 2 puff INHALATION RT-Q6H PRN 01/21/16 Inhaler] hydrALAZINE HCL [Apresoline] 25 mg PO TID@0800,1200,1700 03/24/16 07/09/17 Aspirin EC [Ecotrin Low Dose] 81 mg PO HS@209912/14/16 07/09/17 Famotidine [Pepcid] 20 mg PO DAILY@0800 12/14/16 07/09/17 Melatonin 5 mg PO HS PRN 12/14/16 07/09/17 Apixaban [Eliquis] 5 mg PO BID@0800,209901/15/17 07/09/17 Atorvastatin [Lipitor] 80 mg PO HS@209901/15/17 07/09/17 Clopidogrel [Plavix] 75 mg PO DAILY@0800 01/15/17 07/09/17 Ferrous Sulfate [Iron (65 MG 325 mg PO BID@0800,209901/15/17 07/09/17 Elemental)] Formoterol Fumarate [Perforomist] 20 mcg INHALATION RT-BID@0800,1700 01/15/17 Budesonide [Pulmicort] 0.5 mg INHALATION RT-BID 06/18/17 07/09/17 Escitalopram [Lexapro] 20 mg PO DAILY 06/18/17 07/09/17 HYDROcodone/APAP 7.5-325MG [[place] 1 tab PO Q6HR PRN 06/18/17 07/09/17 7.5-325] Ipratropium-Albuterol Nebulize 3 ml INHALATION RT-BID PRN 06/18/17 07/09/17 [Duoneb 0.5 mg-3 mg/3 ml Soln] Sacubitril/Valsartan [Entresto 97 1 tab PO BID 06/18/17 07/09/17 mg-103 mg Tablet] Previous Rx's Medication Instructions Recorded LORazepam [Ativan] 0.5 mg PO Q8H PRN #20 tab 12/29/16 Potassium Chloride [K-Tab ER] 20 meq PO DAILY #1 tablet.er 01/22/17 Furosemide [Lasix] 80 mg PO BID@0900,1600 #60 tab 06/24/17 predniSONE 10 mg PO DAILY #30 tab 06/25/17 Allergies Allergy/AdvReac Type Severity Reaction Status Date / Time ciprofloxacin HCl Allergy Severe Anaphylaxis Verified 07/09/17 13:56 [From Cipro] budesonide [From Symbicort] AdvReac Rapid Verified 07/09/17 13:56 Heart Rate formoterol fumarate AdvReac Rapid Verified 07/09/17 13:56 [From Symbicort] Heart Rate Review of Systems ROS Statement: Those systems with pertinent positive or pertinent negative responses have been documented in the HPI. ROS Other: All systems not noted in ROS Statement are negative. Past Medical History Past Medical History: Atrial Flutter, Coronary Artery Disease (CAD), Heart Failure, COPD, GERD/Reflux, Hyperlipidemia, Hypertension, Myocardial Infarction (HI), Osteoarthritis (OA), Syncope, Thyroid Disorder Additional Past Medical History / Comment(s): COPD and the patient is on home O2 at 2 L/m nasal cannula and she has a baseline FEV1 of 30% of predicted and she is a nonsmoker, congestion heart failure with an ejection fraction of 30-35 % along with severe pulmonary hypertension and the right ventricle systolic pressure of 60, history of atrial fibrillation/flutter/atrial tachycardia with previous cardiac ablation, fibromyalgia, hyperlipidemia, hypertension, colonic polyps, previous coronary artery disease and reported history of myocardial infarction, hypothyroidism, degenerative arthritis, nonischemiccardio myopathy , and severe peripheral vascular disease. Last Myocardial Infarction Date:: 2013 History of Any Multi-Drug Resistant Organisms: None Reported Past Surgical History: Bowel Resection, Cardiac Ablation, Section, Heart Catheterization, Tubal Ligation Additional Past Surgical History / Comment(s): Bowel resection, cardiac ablation for atrial flutter, , cardiac catheterization, tubal ligation , stent left leg Past Anesthesia/Blood Transfusion Reactions: Motion Sickness Additional Past Anesthesia/Blood Transfusion Reaction / Comment(s): CLAUSTROPHOBIA Past Psychological History: Anxiety, Depression Smoking Status: Former smoker - Past Family History Mother Family Medical History: Cancer Father Family Medical History: Coronary Artery Disease (CAD) General Exam - General Exam Comments Initial Comments: Is a well-developed well-nourished awake alert oriented x 3 female Limitations: no limitations General appearance: alert, in no apparent distress Head exam: Present: atraumatic, normocephalic, normal inspection Eye exam: Present: normal appearance, PERRL, EOMI. Absent: scleral icterus, conjunctival injection, periorbital swelling ENT exam: Present: normal exam, mucous membranes moist Neck exam: Present: normal inspection. Absent: tenderness, meningismus, lymphadenopathy Respiratory exam: Present: rales, decreased breath sounds. Absent: respiratory distress, wheezes, rhonchi, stridor Cardiovascular Exam: Present: regular rate, normal rhythm, normal heart sounds. Absent: systolic murmur, diastolic murmur, rubs, gallop, clicks GI/Abdominal exam: Present: soft, normal bowel sounds. Absent: distended, tenderness, guarding, rebound, rigid Extremities exam: Present: normal inspection, full ROM, normal capillary refill. Absent: tenderness, pedal edema, joint swelling, calf tenderness Back exam: Present: normal inspection Neurological exam: Present: alert, oriented X3, CN II-XII intact Psychiatric exam: Present: normal affect, normal mood Skin exam: Present: warm, dry, intact, normal color. Absent: rash Course Vital Signs 07/09/17 07/09/17 07/09/17 12:06 12:41 13:21 Temperature 97.7 F Pulse Rate 83 100 Respiratory 20 18 18 Rate Blood Pressure 108/79 99/57 O2 Sat by Pulse 91 L 98 Oximetry 07/09/17 07/09/17 14:07 15:24 Temperature Pulse Rate 110 H 98 Respiratory 18 18 Rate Blood Pressure 107/65 107/80 O2 Sat by Pulse 98 96 Oximetry - Reevaluation(s) Reevaluation #1: 07/09/17 15:53 Reevaluation patient reveals that she has no further new symptoms. She is not sexually better or worse and she did earlier. Medical Decision Making - Medical Decision Making I did discuss findings with the patient and with the admitting service of Dr. Ramos. Patient will be admitted for treatment inpatient evaluation for CHF. She also has elevated troponin though no overt chest pain at this time. She also demonstrate renal insufficiency. - Lab Data Result diagrams: 07/09/17 13:00 07/09/17 13:00 Lab Results 07/09/17 07/09/17 07/09/17 Range/Units 13:00 13:00 13:00 WBC 7.6 (3.8-10.6) k/uL RBC 4.00 (3.80-5.40) m/uL Hgb 13.3 (11.4-16.0) gm/dL Hct 42.7 (34.0-46.0) % MCV 106.6 H (80.0-100.0) fL MCH 33.2 (25.0-35.0) pg MCHC 31.1 (31.0-37.0) g/dL RDW 17.6 H (11.5-15.5) % Plt Count 196 (150-450) k/uL Neutrophils % 74 % Lymphocytes % 14 % Monocytes % 9 % Eosinophils % 0 % Basophils % 0 % Neutrophils # 5.6 (1.3-7.7) k/uL Lymphocytes # 1.1 (1.0-4.8) k/uL Monocytes # 0.7 (0-1.0) k/uL Eosinophils # 0.0 (0-0.7) k/uL Basophils # 0.0 (0-0.2) k/uL Manual Slide Review Performed Hypochromasia Moderate Anisocytosis Slight Macrocytosis Marked PT (9.0-12.0) sec INR (<1.2) APTT (22.0-30.0) sec Sodium 136 L (137-145) mmol/L Potassium 6.1 H (3.5-5.1) mmol/L Chloride 88 L (98-107) mmol/L Carbon Dioxide 38 H (22-30) mmol/L Anion Gap 10 mmol/L BUN 48 H (7-17) mg/dL Creatinine 1.62 H (0.52-1.04) mg/dL Est GFR (MDRD) Af Amer 39 (>60 ml/min/1.73 sqM) Est GFR (MDRD) Non-Af 32 (>60 ml/min/1.73 sqM) Glucose 150 H (74-99) mg/dL Calcium 9.2 (8.4-10.2) mg/dL Magnesium 1.7 (1.6-2.3) mg/dL Total Bilirubin 1.4 H (0.2-1.3) mg/dL AST 37 H (14-36) U/L ALT 46 (9-52) U/L Alkaline Phosphatase 82 (38-126) U/L Total Creatine Kinase 56 (30-135) U/L CK-MB (CK-2) 4.5 H* (0.0-2.4) ng/mL CK-MB (CK-2) Rel Index 8.0 Troponin I 0.078 H* (0.000-0.034) ng/mL NT-Pro-B Natriuret Pep pg/mL Total Protein 6.3 (6.3-8.2) g/dL Albumin 4.1 (3.5-5.0) g/dL Urine Color Urine Appearance (Clear) Urine pH (5.0-8.0) Ur Specific [place] (1.001-1.035) Urine Protein (Negative) Urine Glucose (UA) (Negative) Urine Ketones (Negative) Urine Blood (Negative) Urine Nitrite (Negative) Urine Bilirubin (Negative) Urine Urobilinogen (<2.0) mg/dL Ur Leukocyte Esterase (Negative) Urine RBC (0-5) /hpf Urine WBC (0-5) /hpf Ur Squamous Epith Cells (0-4) /hpf Urine Bacteria (None) /hpf Hyaline Casts (0-2) /lpf Urine Mucus (None) /hpf 07/09/17 07/09/17 07/09/17 Range/Units 13:00 13:00 13:19 WBC (3.8-10.6) k/uL RBC (3.80-5.40) m/uL Hgb (11.4-16.0) gm/dL Hct (34.0-46.0) % MCV (80.0-100.0) fL MCH (25.0-35.0) pg MCHC (31.0-37.0) g/dL RDW (11.5-15.5) % Plt Count (150-450) k/uL Neutrophils % % Lymphocytes % % Monocytes % % Eosinophils % % Basophils % % Neutrophils # (1.3-7.7) k/uL Lymphocytes # (1.0-4.8) k/uL Monocytes # (0-1.0) k/uL Eosinophils # (0-0.7) k/uL Basophils # (0-0.2) k/uL Manual Slide Review Hypochromasia Anisocytosis Macrocytosis PT 15.7 H (9.0-12.0) sec INR 1.6 H (<1.2) APTT 26.2 (22.0-30.0) sec Sodium (137-145) mmol/L Potassium (3.5-5.1) mmol/L Chloride (98-107) mmol/L Carbon Dioxide (22-30) mmol/L Anion Gap mmol/L BUN (7-17) mg/dL Creatinine (0.52-1.04) mg/dL Est GFR (MDRD) Af Amer (>60 ml/min/1.73 sqM) Est GFR (MDRD) Non-Af (>60 ml/min/1.73 sqM) Glucose (74-99) mg/dL Calcium (8.4-10.2) mg/dL Magnesium (1.6-2.3) mg/dL Total Bilirubin (0.2-1.3) mg/dL AST (14-36) U/L ALT (9-52) U/L Alkaline Phosphatase (38-126) U/L Total Creatine Kinase (30-135) U/L CK-MB (CK-2) (0.0-2.4) ng/mL CK-MB (CK-2) Rel Index Troponin I (0.000-0.034) ng/mL NT-Pro-B Natriuret Pep 70901 pg/mL Total Protein (6.3-8.2) g/dL Albumin (3.5-5.0) g/dL Urine Color Yellow Urine Appearance Cloudy H (Clear) Urine pH 5.5 (5.0-8.0) Ur Specific [place] 1.010 (1.001-1.035) Urine Protein 1+ H (Negative) Urine Glucose (UA) Negative (Negative) Urine Ketones Negative (Negative) Urine Blood Trace H (Negative) Urine Nitrite Negative (Negative) Urine Bilirubin Negative (Negative) Urine Urobilinogen <2.0 (<2.0) mg/dL Ur Leukocyte Esterase Small H (Negative) Urine RBC 2 (0-5) /hpf Urine WBC 9 H (0-5) /hpf Ur Squamous Epith Cells 5 H (0-4) /hpf Urine Bacteria Rare H (None) /hpf Hyaline Casts 49 H (0-2) /lpf Urine Mucus Rare H (None) /hpf - Radiology Data Radiology results: report reviewed (X-ray demonstrates cardiomegaly trace pleural effusion no focal consolidation.), image reviewed Critical Care Time Critical Care Time: Yes Critical Care Time: 37 minutes of critical care time which includes the initial presentation with history physical labs x-rays reevaluation patient several occasions evaluation of old charting initial discussion with the wave guide assembler. Discussion with the admitting service admission orders and documentation of the above. Disposition Clinical Impression: Congestive heart failure, Renal insufficiency syndrome, Hyperkalemia Disposition: ADMITTED IP TO THIS [facility] Condition: Stable Referrals: George Lloyd DO [Primary Care Provider] - 1-2 days Decision Time: 15:00
[2017-07-09 13:21] LABS: Anisocytosis Slight; Basophils % (A) 0 %; CH 32.3; CHCM 30.5; Eosinophils % (A) 0 %; HCT 42.7 % (34.0-46.0); HDW 2.55; HGB 13.3 gm/dL (11.4-16.0); Hypochromasia Moderate; Luc # (Auto) 0.21; Luc % (Auto) 3; Lymphocytes # (A) 1.1 k/uL (1.0-4.8); Lymphocytes % (A) 14 %; MCH 33.2 pg (25.0-35.0); MCHC 31.1 g/dL (31.0-37.0); MCV 106.6 fL (80.0-100.0); Macrocytosis Marked; Mean Platelet Volume 7.8; Monocytes # (A) 0.7 k/uL (0-1.0); Monocytes % (A) 9 %; Neutrophils # (A) 5.6 k/uL (1.3-7.7); Neutrophils % (A) 74 %; RDW 17.6 % (11.5-15.5); WBC 7.6 k/uL (3.8-10.6); WBC (Perox) 7.62
[2017-07-09 13:31] LABS: INR 1.6 (<1.2); Partial Thromboplastin Time 26.2 sec (22.0-30.0); Prothrombin Time 15.7 sec (9.0-12.0)
[2017-07-09 13:32] LABS: Calcium 9.2 mg/dL (8.4-10.2); Magnesium 1.7 mg/dL (1.6-2.3); Potassium 6.1 mmol/L (3.5-5.1); Total Bilirubin 1.4 mg/dL (0.2-1.3); Total Protein 6.3 g/dL (6.3-8.2)
[2017-07-09 13:40] LABS: Appearance,Urine Cloudy (Clear); Bacteria,Urine Rare /hpf; Bilirubin,Urine Negative (Negative); Glucose,Urine (UA) Negative (Negative); Ketones,Urine Negative (Negative); Leukocyte Esterase,Urine Small (Negative); Mucus,Urine Rare /hpf; Nitrite,Urine Negative (Negative); PH, Urine 5.5 (5.0-8.0); Particle Count 4507; Protein,Urine 1+ (Negative); RBC,Urine 2 /hpf (0-5); Squamous Epithelial Cell,Urine 5 /hpf (0-4); UA Billing (MACRO vs. MICRO) MICRO; Urobilinogen,Urine <2.0 mg/dL (<2.0); WBC,Urine 9 /hpf (0-5)
--- NOTE | 2017-07-09 13:48 | XR ---
EXAMINATION TYPE: XR chest 2V DATE OF EXAM: 07/09/2017 COMPARISON: 06/21/2017 HISTORY: COPD and CHF. Center oven stripper for abnormal labs, fluid retention, weakness and shortness of breath. TECHNIQUE: Frontal and lateral views of the chest are obtained. FINDINGS: There is no focal air space opacity, pleural effusion, or pneumothorax seen. The previous ly seen mild pulmonary vascular congestion and pleural effusion have resolved. Marked cardiomegaly re ramakrishna. Atherosclerosis of the subclavian vasculature is noted incidentally. The osseous structures ar e intact. Degenerative changes of the thoracic spine are again seen, mild in degree as well as diffus e osseous demineralization was evident in the thoracic spine. Pulmonary hyperinflation is again noted . IMPRESSION: Redemonstration of marked cardiomegaly with resolution of the previously seen pulmonary vascular congestion and trace pleural effusion. Sequela of COPD. No focal consolidation.
[2017-07-09 13:52] LABS: Manual Review Performed
[2017-07-09 14:00] LABS: Creatine Kinase MB 4.5 ng/mL (0.0-2.4)
[2017-07-09 14:01] LABS: Troponin I 0.078 ng/mL (0.000-0.034)
[2017-07-09] MEDS ORDERED: HEPARIN SODIUM,PORCINE 5,000 UNIT/ML 1 ML VIAL SQ SCH (16:00)
[2017-07-09] MEDS ORDERED: SODIUM POLYSTYRENE SULFONATE 15 GM/60 ML BOTTLE PO ONE (16:02)
[2017-07-09] MEDS: hydrALAZINE HCL 25 MG TAB PO SCH (18:13)
[2017-07-09] MEDS: METOPROLOL TARTRATE 50 MG TAB PO SCH (18:14)
[2017-07-09] MEDS: NITROGLYCERIN OINT 1 INCH/GM PACKET TOPICAL SCH ×2 (18:14→22:37)
[2017-07-09] MEDS: HYDROcodone/APAP 7.5-325MG 1 EACH TAB PO PRN (18:26)
[2017-07-09] MEDS: SODIUM CHLORIDE 0.9% 1,000 ML IV SCH (18:46)
[2017-07-09] MEDS ORDERED: IPRATROPIUM-ALBUTEROL 3 ML NEB INHALATION SCH (20:00)
--- NOTE | 2017-07-09 20:04 | P.HPIM ---
History of Present Illness H&P Date: 07/09/17 Chief Complaint: Shortness of breath 61-year-old female patient of Dr. Lloyd whose chronic stable medical conditions include atrial flutter, fibrillation, hyperlipidemia, hypertension, osteoarthritis. history of CHF recent hospitalization with known end-stage COPD presented with worsening shortness of breath 20 pound weight gain in the last week. Patient was seen today by Dr. Milian her electronic health records specialist and he directly admitted her from the office. States the shortness of breath has been coming on little by little she had some wheezing, decreased appetite, tired and run down with mild edema to her lower extremities. She states she had been eating [place] fried chicken for some of her meals. Review of Systems GEN.: Tired, run down EYES: [Red, irritated] HEENT: [None] NECK: [None] RESPIRATORY: [As above] CARDIOVASCULAR: [As above] GASTROINTESTINAL: [None] GENITOURINARY: [None] MUSCULOSKELETAL: [Painful joints] DERMATOLOGIC: Bruising HEMATOLOGIC: Bruising LYMPHATICS: [None] PSYCHIATRY: [Anxiety] NEUROLOGICAL: [Restless leg syndrome] Past Medical History Past Medical History: Atrial Flutter, Coronary Artery Disease (CAD), Heart Failure, COPD, GERD/Reflux, Hyperlipidemia, Hypertension, Myocardial Infarction (DE), Osteoarthritis (OA), Syncope, Thyroid Disorder Additional Past Medical History / Comment(s): COPD and the patient is on home O2 at 3 L nasal cannula , congestion heart failure history of atrial fibrillation/flutter/atrial tachycardia with previous cardiac ablation, fibromyalgia, hyperlipidemia, hypertension, colonic polyps, previous coronary artery disease and reported history of myocardial infarction, hypothyroidism, degenerative arthritis, "non ischemiccardio myopathy", and severe peripheral vascular disease. Last Myocardial Infarction Date:: 2013 History of Any Multi-Drug Resistant Organisms: None Reported Past Surgical History: Bowel Resection, Cardiac Ablation, Section, Heart Catheterization, Tubal Ligation Additional Past Surgical History / Comment(s): Bowel resection, cardiac ablation for atrial flutter, , cardiac catheterization, tubal ligation , stent left leg Past Anesthesia/Blood Transfusion Reactions: Motion Sickness Additional Past Anesthesia/Blood Transfusion Reaction / Comment(s): CLAUSTROPHOBIA Smoking Status: Former smoker - Past Family History Mother Family Medical History: Cancer Father Family Medical History: Coronary Artery Disease (CAD) Medications and Allergies Home Medications Medication Instructions Recorded Confirmed Type Levothyroxine Sodium [Synthroid] 125 mcg PO DAILY@0600 05/14/15 07/09/17 History Metoprolol Tartrate [Lopressor] 50 mg PO TID@0800,1200,1700 08/02/15 07/09/17 History Levalbuterol Tartrate [Xopenex Hfa 2 puff INHALATION RT-Q6H PRN 01/21/16 History Inhaler] hydrALAZINE HCL [Apresoline] 25 mg PO TID@0800,1200,1700 03/24/16 07/09/17 History Aspirin EC [Ecotrin Low Dose] 81 mg PO HS@209912/14/16 07/09/17 History Famotidine [Pepcid] 20 mg PO DAILY@0800 12/14/16 07/09/17 History Melatonin 5 mg PO HS PRN 12/14/16 07/09/17 History LORazepam [Ativan] 0.5 mg PO Q8H PRN #20 tab 12/29/16 07/09/17 Rx Apixaban [Eliquis] 5 mg PO BID@0800,2100 01/15/17 07/09/17 History Atorvastatin [Lipitor] 80 mg PO HS@2100 01/15/17 07/09/17 History Clopidogrel [Plavix] 75 mg PO DAILY@0800 01/15/17 07/09/17 History Ferrous Sulfate [Iron (65 MG 325 mg PO BID@0800,2100 01/15/17 07/09/17 History Elemental)] Formoterol Fumarate [Perforomist] 20 mcg INHALATION RT-BID@0800,1700 01/15/17 History Potassium Chloride [K-Tab ER] 20 meq PO DAILY #1 tablet.er 01/22/17 07/09/17 Rx Budesonide [Pulmicort] 0.5 mg INHALATION RT-BID 06/18/17 07/09/17 History Escitalopram [Lexapro] 20 mg PO DAILY 06/18/17 07/09/17 History HYDROcodone/APAP 7.5-325MG [[place] 1 tab PO Q6HR PRN 06/18/17 07/09/17 History 7.5-325] Ipratropium-Albuterol Nebulize 3 ml INHALATION RT-BID PRN 06/18/17 07/09/17 History [Duoneb 0.5 mg-3 mg/3 ml Soln] Sacubitril/Valsartan [Entresto 97 1 tab PO BID 06/18/17 07/09/17 History mg-103 mg Tablet] Furosemide [Lasix] 80 mg PO BID@0900,1600 #60 tab 06/24/17 07/09/17 Rx predniSONE 10 mg PO DAILY #30 tab 06/25/17 07/09/17 Rx Allergies Allergy/AdvReac Type Severity Reaction Status Date / Time ciprofloxacin HCl Allergy Severe Anaphylaxis Verified 07/09/17 13:56 [From Cipro] budesonide [From Symbicort] AdvReac Rapid Verified 07/09/17 13:56 Heart Rate formoterol fumarate AdvReac Rapid Verified 07/09/17 13:56 [From Symbicort] Heart Rate Physical Exam Vitals: Vital Signs Temp Pulse Pulse Resp BP BP Pulse Ox 07/09/17 18:55 101 H 20 07/09/17 17:15 96.9 F L 101 H 20 89/69 96 07/09/17 16:56 110 H 18 97/62 98 07/09/17 16:43 97.1 F L 103 H 20 96/67 100 07/09/17 15:24 98 18 107/80 96 07/09/17 14:07 110 H 18 107/65 98 07/09/17 13:21 100 18 99/57 98 07/09/17 12:41 18 07/09/17 12:06 97.7 F 83 20 108/79 91 L Intake and Output 07/09/17 07/09/17 07/09/17 06:59 14:59 22:59 Output Total 100 150 Balance -100 -150 Output: Urine 100 150 Other: # Voids 0 Weight 78.29 kg Patient Weight 07/10/17 06:59 Weight 78.29 kg VITAL SIGNS: [Temperature 97.1, pulse 103, respiratory rate 20, blood pressure 96/67, oxygen saturation 100% on 3 L nasal cannula. BMI 29.6 kg/m] GENERAL: [Average built, lying down, tired appearing]. EYES: [Pupils equal. Conjunctiva normal, exophthalmus]l. HEENT: [External appearance of nose and ears normal, oral cavity grossly normal] . NECK: [JVD unable to assess; masses not palpable]. HEART: [Irregular rhythm; mild edema]. LUNGS:[ Respiratory rate increased; fair airway clearance diminished to the bilateral bases]. ABDOMEN: [Soft, nontender, liver spleen not palpable, no masses palpable]. LYMPHATICS: [No lymph nodes palpable in the axilla and neck]. PSYCH: [Alert and oriented x3; mood and affect tired appearing. NEUROLOGICAL: [Cranial nerves grossly intact; no facial asymmetry, power and sensation grossly intact]. Results CBC & Chem 7: 07/09/17 13:00 07/09/17 13:00 Labs: Abnormal Lab Results - Last 24 Hours (Table) 07/09/17 07/09/17 07/09/17 Range/Units 13:00 13:00 13:00 MCV 106.6 H (80.0-100.0) fL RDW 17.6 H (11.5-15.5) % PT (9.0-12.0) sec INR (<1.2) Sodium 136 L (137-145) mmol/L Potassium 6.1 H (3.5-5.1) mmol/L Chloride 88 L (98-107) mmol/L Carbon Dioxide 38 H (22-30) mmol/L BUN 48 H (7-17) mg/dL Creatinine 1.62 H (0.52-1.04) mg/dL Glucose 150 H (74-99) mg/dL Total Bilirubin 1.4 H (0.2-1.3) mg/dL AST 37 H (14-36) U/L CK-MB (CK-2) 4.5 H* (0.0-2.4) ng/mL Troponin I 0.078 H* (0.000-0.034) ng/mL Urine Appearance (Clear) Urine Protein (Negative) Urine Blood (Negative) Ur Leukocyte Esterase (Negative) Urine WBC (0-5) /hpf Ur Squamous Epith Cells (0-4) /hpf Urine Bacteria (None) /hpf Hyaline Casts (0-2) /lpf Urine Mucus (None) /hpf 07/09/17 07/09/17 Range/Units 13:00 13:19 MCV (80.0-100.0) fL RDW (11.5-15.5) % PT 15.7 H (9.0-12.0) sec INR 1.6 H (<1.2) Sodium (137-145) mmol/L Potassium (3.5-5.1) mmol/L Chloride (98-107) mmol/L Carbon Dioxide (22-30) mmol/L BUN (7-17) mg/dL Creatinine (0.52-1.04) mg/dL Glucose (74-99) mg/dL Total Bilirubin (0.2-1.3) mg/dL AST (14-36) U/L CK-MB (CK-2) (0.0-2.4) ng/mL Troponin I (0.000-0.034) ng/mL Urine Appearance Cloudy H (Clear) Urine Protein 1+ H (Negative) Urine Blood Trace H (Negative) Ur Leukocyte Esterase Small H (Negative) Urine WBC 9 H (0-5) /hpf Ur Squamous Epith Cells 5 H (0-4) /hpf Urine Bacteria Rare H (None) /hpf Hyaline Casts 49 H (0-2) /lpf Urine Mucus Rare H (None) /hpf Thrombosis Risk Factor Assmnt - Choose All That Apply Each Factor Represents 1 point: Obesity (BMI >25) Each Risk Factor Represents 2 Points: Age 61-74 years Each Risk Factor Represents 3 Points: History of DVT/PE Thrombosis Risk Factor Assessment Total Risk Factor Score: 6 Thrombosis Risk Factor Assessment Level: High Risk Assessment and Plan Plan: ASSESSMENT: -Acute on chronic congestive heart failure exacerbation from systolic dysfunction, ejection fraction 30% to 5035% from underlying coronary artery disease. -Atrial flutter, fibrillation controlled on presentation -Acute chronic obstructive pulmonary disease exacerbation and end-stage chronic obstructive pulmonary disease patient in an ex-smoker -Restless leg syndrome. -Chronic fibromyalgia. -Essential hypertension. -Hyperlipidemia. -Primary osteoarthritis multiple joints bilateral. -Chronic hypoxic respiratory failure from underlying chronic obstructive pulmonary disease on 2 L of oxygen at home. -Hypothyroidism. -Secondary pulmonary hypertension secondary to chronic obstructive pulmonary disease. -Severe tricuspid regurgitation nonrheumatic. -Depression otherwise specified. -Hyperkalemia, likely due to decreased kidney function -Troponin leak likely due to acute congestive heart failure exacerbation PLAN: Home meds reordered, consult pulmonology and cardiology, patient to receive IV Lasix every 8 hours potassium will likely come down as a result, we'll repeat labs in the morning to continue to follow potassium. Plan of care discussed with the patient at the bedside she is in agreement. We'll follow closely. INFANT NANNY STATEMENT: Patient was seen and examined by nurse practitioner Cathie Monk in all elements of the case discussed with attending Dr. Ramos.
[2017-07-09] MEDS: ASPIRIN 81 MG PO SCH (20:53)
[2017-07-09] MEDS: APIXABAN 5 MG TAB PO SCH (20:53)
[2017-07-09] MEDS: FERROUS SULFATE 325 MG TAB PO SCH (20:53)
[2017-07-09] MEDS: ATORVASTATIN 80 MG TAB PO SCH (20:53)
[2017-07-09] MEDS ORDERED: SACUBITRIL/VALSARTAN 97 MG-103 MG TABLET PO SCH (21:00)
[2017-07-09] MEDS ORDERED: predniSONE 10 MG TAB PO ONE (21:00)
[2017-07-09] MEDS: LORazepam 0.5 MG TAB PO PRN (22:35)
[2017-07-09] MEDS: MELATONIN 5 MG TABLET PO PRN (22:35)
[2017-07-09] MEDS ORDERED: IPRATROPIUM-ALBUTEROL 3 ML NEB INHALATION PRN (22:44)
[2017-07-09 23:17] LABS: Calcium 8.6 mg/dL (8.4-10.2); Potassium 4.9 mmol/L (3.5-5.1)
[2017-07-10] MEDS ORDERED: FUROSEMIDE 10 MG/ML 4 ML VIAL IV SCH
[2017-07-10] MEDS: LEVOTHYROXINE 125 MCG TAB PO SCH (05:46)
--- NOTE | 2017-07-10 06:42 | HP ---
HISTORY AND PHYSICAL DATE OF ADMISSION: 07/09/2017 PRESENTING COMPLAINT: Weak and tired. ATTENDING NOTE: This patient seen and examined by me. I discussed with my nurse practitioner, Ms. Monk. The patient presents with feeling weak, tired, not much edema, just run down. PHYSICAL EXAMINATION: On examination, temperature 97.5 pulse 90, respiration 18, blood pressure 98/61. LUNGS: Decreased breath sounds. CARDIOVASCULAR: First and second sounds are normal. Minimal edema. INVESTIGATIONS: Potassium 6.1, BUN 48, creatinine 1.62. Patient's BUN and creatinine was 31/1.0 on 07/06/17. Chest x-ray cardiomegaly, no venous prominence. Troponin 0.078. ASSESSMENT: 1. Acute renal failure, possibly acute tubular necrosis/prerenal in a patient that has been on diuretics and also Entresto. 2. Chronic congestive heart failure from systolic dysfunction, ejection fraction 30% to 35% from underlying coronary artery disease. I do not think the patient has had an acute exacerbation. 3. Atrial flutter fibrillation, persistent. 4. Chronic obstructive pulmonary disease, end stage, in an ex-smoker. 5. Restless legs syndrome. 6. Chronic fibromyalgia. 7. Hypotension from volume loss. 8. Hyperlipidemia. 9. Primary osteoarthritis multiple joints, bilaterally. 10.Chronic hypoxic respiratory failure, underlying chronic obstructive pulmonary disease, uses oxygen at home. 11.Hypothyroidism. 12.Hyperkalemia from renal failure and patient being on Entresto. PLAN: At this point will stop patient's IV Lasix. The patient did get Kayexalate earlier, will check her potassium now. Hold off any fluids for right now. Her home medications will be resumed. Care was discussed with the patient. MMODL / IJN: [id number] /
[2017-07-10 07:04] LABS: Calcium 8.6 mg/dL (8.4-10.2); Potassium 4.8 mmol/L (3.5-5.1)
[2017-07-10] MEDS: IPRATROPIUM-ALBUTEROL 3 ML NEB INHALATION SCH ×4 (08:26→21:00)
[2017-07-10] MEDS ORDERED: FUROSEMIDE 80 MG TAB PO SCH (09:00)
[2017-07-10] MEDS ORDERED: NON-FORMULARY DRUG (Potassium Chloride [K-Tab Er] 20 MEQ) PO SCH (09:00)
[2017-07-10] MEDS: APIXABAN 5 MG TAB PO SCH ×2 (10:11→21:34)
[2017-07-10] MEDS: NITROGLYCERIN OINT 1 INCH/GM PACKET TOPICAL SCH ×4 (10:11→21:34)
[2017-07-10] MEDS: ESCITALOPRAM 20 MG TAB PO SCH (10:11)
[2017-07-10] MEDS: FERROUS SULFATE 325 MG TAB PO SCH ×2 (10:11→21:34)
[2017-07-10] MEDS: CLOPIDOGREL 75 MG TAB PO SCH (10:11)
[2017-07-10] MEDS: METOPROLOL TARTRATE 50 MG TAB PO SCH ×3 (10:11→17:53)
[2017-07-10] MEDS: FAMOTIDINE 20 MG TAB PO SCH (10:11)
[2017-07-10] MEDS: hydrALAZINE HCL 25 MG TAB PO SCH ×3 (10:11→17:48)
[2017-07-10 14:13] VITALS: BMI 28.5
--- NOTE | 2017-07-10 15:12 | P.PN ---
Progress Note - Text DATE OF SERVICE: 07/10/2017 PRESENTING COMPLAINT: Weak and tired HISTORY OF PRESENT ILLNESS: 61-year-old female presented with worsening shortness of breath, 20 pound weight gain in the last week, weak and tired. Potassium elevated, kidney function elevated as well. INTERVAL HISTORY: 07/10/2017: Patient lying in bed, appears lethargic, answers simple questions not very communicative. REVIEW OF SYSTEMS: Done for constitutional ,cardiovascular, GI, pulmonary with relevant findings as above. CURRENT MEDICATIONS Eliquis 5 mg by mouth twice a day, aspirin 81 mg by mouth at bedtime, Lipitor 80 mg by mouth at bedtime, Plavix 75 mg by mouth daily, Perforomist 20 g inhalation twice a day, Apresoline 25 mg by mouth 3 times a day, Synthroid 125 g daily, Lopressor 50 mg by mouth 3 times a day PHYSICAL EXAM VITAL SIGNS: Temperature 96.9, pulse 90, respiratory rate 18, pressure 113/61, oxygen saturation 93% on 3 L. GENERAL APPEARANCE: Lying in bed, tired appearing, lethargic. EYES: Pupils equal. Conjunctiva normal. NECK: JVD not raised. Mass not palpable. RESPIRATORY: Respiratory effort normal. Lungs decreased bilaterally to auscultation. CARDIOVASCULAR: Irregular rhythm controlled No edema. ABDOMEN: Soft. Liver and spleen not palpable. No tenderness. No mass palpable. PSYCHIATRY: Alert and oriented x3. Mood and affect normal. INVESTIGATIONS: Sodium 136, chloride 89, carbon dioxide 41, BUN 47, creatinine 1.37, Accu-Cheks noted. ASSESSMENT: -Acute renal failure, possibly acute tubular necrosis/prerenal in a patient that has been on diuretics and entresto improving -Chronic congestive heart failure from systolic dysfunction ejection fraction 30 % to 35% under lying coronary artery disease. Likely not acute exacerbation -Atrial flutter/fibrillation, persistent, controlled rate -Chronic obstructive pulmonary disease, end-stage, in an ex-smoker. -Rest leg syndrome. -Chronic fibromyalgia. -Hypotension from volume loss. -Hyperlipidemia. -Primary osteoporosis multiple joints, bilaterally. -Chronic hypoxic respiratory failure underlying chronic obstructive pleuritic disease, uses home oxygen -Hypothyroidism. -Hyperkalemia from renal failure and patient being on and entresto, resolved PLAN: Hold IV Lasix for now, potassium is normalized, holding IV fluids for the time being as well. Await input from pulmonology. Plan of care discussed with the patient the bedside, she is in agreement. We will follow closely. CUFF SLITTER statement: Patient was seen and examined by nurse practitioner Cathie Monk and all elements of the case discussed with attending Dr. Ramos
[2017-07-10] MEDS: SODIUM CHLORIDE 0.9% 1,000 ML IV SCH (17:53)
--- NOTE | 2017-07-10 19:59 | CONS ---
CONSULTATION CHIEF COMPLAINT: Shortness of breath. Allison is a 61-year-old lady with history of nonischemic cardiomyopathy, atrial fibrillation, hypertension, peripheral arterial disease who presented to hospital complaining of worsening shortness of breath. She was thought to be in congestive heart failure along with renal failure and Cardiology had been consulted for the same. At the time of my evaluation, she appears comfortable at rest and is free of symptoms. PAST MEDICAL HISTORY: Significant for chronic systolic heart failure, chronic atrial fibrillation, peripheral arterial disease and hypertension. CURRENT MEDICATIONS: Include: 1. DuoNeb. 2. Aspirin. 3. Eliquis. 4. Lipitor. 5. Plavix. 6. Lexapro. 7. Pepcid. 8. Iron. 9. Synthroid. 10.Lopressor and. 11.Nitro-Bid. ALLERGIC TO CIPRO, SYMBICORT. FAMILY HISTORY: Negative for premature coronary artery disease. SOCIAL HISTORY: Negative for current smoking, EtOH abuse or drug abuse. REVIEW OF SYSTEMS: HEENT: Unremarkable. CARDIAC: As described above. RESPIRATORY: Negative. GI: Negative. ALLERGY/IMMUNOLOGY: Negative. SKIN: Negative. MUSCULOSKELETAL: Negative. ENDOCRINE: Negative. DERMATOLOGICAL: Negative. CONSTITUTIONAL: Negative. ONCOLOGICAL: Negative. Rest of the system review is not relevant. EXAM: Comfortable at rest. VITAL SIGNS: Stable. Chest reveals good air entry bilaterally. Heart reveals first and second heart sounds, irregular rhythm. ABDOMEN: Soft. Extremities did not reveal any edema. Peripheral pulses are felt. Recent echocardiogram on her shows an ejection fraction of 35% to 40%. Lab showed a hemoglobin of 13.3, creatinine is 1.6 initially, came down to 1.3. Troponin is 0.078. BNP is 18,500. EKG shows atrial fibrillation with nonspecific ST-T wave changes. ASSESSMENT: 1. Chronic atrial fibrillation. 2. Acute renal failure. 3. Chronic systolic congestive heart failure. PLAN: I reviewed and I agree with the current management plans. MMODL / IJN: [id number] /
[2017-07-10] MEDS: FORMOTEROL FUMARATE 20 MCG/2 ML NEBU INHALATION SCH (20:58)
[2017-07-10] MEDS: BUDESONIDE 1 MG/2 ML NEBU INHALATION SCH (20:58)
[2017-07-10] MEDS: LORazepam 0.5 MG TAB PO PRN (21:34)
[2017-07-10] MEDS: ATORVASTATIN 80 MG TAB PO SCH (21:34)
[2017-07-10] MEDS: ASPIRIN 81 MG PO SCH (21:34)
[2017-07-10] MEDS: MELATONIN 5 MG TABLET PO PRN (21:34)
--- NOTE | 2017-07-11 00:36 | PN ---
PROGRESS NOTE DATE OF SERVICE: 07/10/17 ATTENDING NOTE: This patient was seen and examined by me. I discussed with nurse practitioner Ms. Monk. Patient admitted with acute renal failure. Diuretics were held. Patient feeling a shade better. Breathing is stable. EXAMINATION: Afebrile. Pulse 91, respiratory rate 16, blood pressure 113/61, pulse ox 93% on 3 L. Lying in bed, comfortable. Lungs decreased breath sounds. CARDIOVASCULAR: First and second sounds normal. INVESTIGATIONS: Potassium 4.8, BUN 47, creatinine 1.37. ASSESSMENT: 1. Acute renal failure probably acute tubular necrosis versus prerenal in a patient who was on diuretics and also Entresto. 2. Chronic congestive heart failure. Ejection fraction 30-35%. Not in acute exacerbation. 3. Persistent atrial flutter fibrillation. PLAN: Care was discussed with the patient. Continue to hold off diuretics for now. Resume the diuretic maybe tomorrow morning depending on how patient does. Care was discussed with the patient. MMODL / IJN: [id number] /
[2017-07-11] MEDS: HYDROcodone/APAP 7.5-325MG 1 EACH TAB PO PRN ×3 (01:17→16:18)
[2017-07-11] MEDS: LEVOTHYROXINE 125 MCG TAB PO SCH (06:24)
[2017-07-11 06:58] LABS: Calcium 8.4 mg/dL (8.4-10.2); Potassium 4.3 mmol/L (3.5-5.1)
[2017-07-11] MEDS: IPRATROPIUM-ALBUTEROL 3 ML NEB INHALATION SCH ×4 (07:46→20:43)
[2017-07-11] MEDS: BUDESONIDE 1 MG/2 ML NEBU INHALATION SCH ×2 (07:46→20:57)
[2017-07-11] MEDS: FORMOTEROL FUMARATE 20 MCG/2 ML NEBU INHALATION SCH ×2 (07:46→20:43)
[2017-07-11] MEDS: CLOPIDOGREL 75 MG TAB PO SCH (08:42)
[2017-07-11] MEDS: METOPROLOL TARTRATE 50 MG TAB PO SCH ×3 (08:42→16:16)
[2017-07-11] MEDS: FERROUS SULFATE 325 MG TAB PO SCH ×2 (08:42→20:36)
[2017-07-11] MEDS: NITROGLYCERIN OINT 1 INCH/GM PACKET TOPICAL SCH ×4 (08:43→20:36)
[2017-07-11] MEDS: FAMOTIDINE 20 MG TAB PO SCH (08:43)
[2017-07-11] MEDS: hydrALAZINE HCL 25 MG TAB PO SCH ×3 (08:43→16:16)
[2017-07-11] MEDS: APIXABAN 5 MG TAB PO SCH ×2 (08:43→20:36)
[2017-07-11] MEDS: ESCITALOPRAM 20 MG TAB PO SCH (08:43)
--- NOTE | 2017-07-11 09:48 | CONS ---
CONSULTATION DATE OF CONSULTATION: 07/10/2017. REASON FOR CONSULTATION: Dyspnea. This is a very pleasant 61-year-old, female patient who follows with Dr. George Lloyd as her primary care physician. She has a history of congestive heart failure, systolic, with ejection fraction 30% to 35%, severe pulmonary hypertension, atrial fibrillation, previous ablation, fibromyalgia, hyperlipidemia, hypertension, colonic polyps, coronary artery disease with previous myocardial infarction, hypothyroidism, degenerative arthritis, nonischemic cardiomyopathy and severe peripheral vascular disease. She also has a history of severe GOLD stage IV chronic obstructive pulmonary disease and has a baseline FEV1 value of 30% of predicted. She is chronically on home oxygen at 2L/minutes per nasal cannula. She has had frequent admissions for both COPD and CHF exacerbations. She was most recently discharged on 06/25/2017. 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 She did have increasing shortness of breath and a stated 20-pound weight gain over the past week or so. Her chest x-ray does demonstrate cardiomegaly with resolution of previously seen pulmonary vascular congestion and trace pleural effusion. There is noted COPD, but no focal consolidation. Her EKG reveals atrial fibrillation. She is seen today in consultation on the selective care unit. She is awake and alert, in no acute distress. She states she is breathing slightly better today as compared to yesterday. She does remain in a positive balance, however. She is currently at 75.4 kg. She was initially on Lasix 40 mg IV q.8 hours. Her current creatinine is 1.37. ProBNP 18,500. No leukocytosis. She denies any worsening shortness of breath, cough or congestion. She is quite dyspneic on minimal exertion. No chest pain. PAST MEDICAL HISTORY: Includes chronic obstructive pulmonary disease, coronary artery disease, atrial fibrillation, severe pulmonary hypertension, hyperlipidemia hypertension, colonic polyps, degenerative arthritis, severe peripheral vascular disease. PAST SURGICAL HISTORY: Includes bowel resection, cardiac ablation, section, heart catheterization, tubal ligation. SOCIAL HISTORY: She has a significant smoking history. No excessive alcohol use or illicit drug use. ALLERGIES: CIPROFLOXACIN, SYMBICORT. HOME MEDICATIONS: 1. Entresto 97-103 mg 1 tablet b.i.d. 2. DuoNeb inhalations q.i.d. p.r.n. 3. [place] 7.5-325 mg every 6 hours p.r.n. 4. Lexapro 20 mg daily. 5. Pulmicort inhalations 0.5 mg b.i.d. 6. Perforomist inhalations 20 mcg b.i.d. 7. Ferrous sulfate 65 mg daily. 8. Plavix 75 mg daily. 9. Lipitor 80 mg daily. 10.Eliquis 5 mg b.i.d. 11.Pepcid 20 mg daily. 12.Aspirin 81 mg daily. 13.Apresoline 25 mg t.i.d. 14.Lopressor 50 mg t.i.d. 15.Synthroid 125 mcg daily. INVESTIGATIONS: Chest x-ray as above. Lab results revealed WBC 7.6, hemoglobin 13.3, platelet count 196,000, INR 1.6. Sodium 136, potassium 4.8, chloride 89, CO2 40, BUN 47, creatinine 1.37. ProBNP 18,500. Her medications are reviewed. IMPRESSION: 1. Acute exacerbation of chronic systolic congestive heart failure with estimated ejection fraction 30% to 35%. 2. Acute on chronic exacerbation of severe oxygen-dependent GOLD stage IV chronic obstructive pulmonary disease on home oxygen. FEV1 value 30% of predicted. 3. Severe pulmonary hypertension. 4. History of atrial fibrillation/flutter with previous ablation. 5. Hyperlipidemia. 6. Hypertension. 7. Coronary disease. 8. Hypothyroidism. 9. Degenerative arthritis. 10.Severe peripheral vascular disease. PLAN: The patient was seen evaluated by Dr. Crowley. Her chest x-ray results and labs were reviewed. We will go ahead and treat her for a COPD exacerbation along with her heart failure exacerbation. She is on DuoNeb inhalations q.i.d. and p.r.n. will add Perforomist and Pulmicort inhalations b.i.d. she remains anticoagulated with Eliquis. She is on Pepcid for GI prophylaxis. We will increase her activity as tolerated. Will continue to follow and make further recommendations based on her clinical status. I performed a History & Physical Examination of the patient and discussed their management with nurse practitioner. I reviewed the nurse practitioner's note and agree with the documented findings and plan of care. MMODL / IJN: [id number] /
--- NOTE | 2017-07-11 10:59 | P.PN ---
Subjective Principal diagnosis: Shortness of breath This is a 61-year-old female who follows regularly with Dr. Milian in the office. She has a known history of nonischemic cardiomyopathy, chronic persistent atrial fibrillation, hypertension, PAD, prior atrial flutter ablation , nicotine dependence, moderate to severe COPD with home O2 use, hypothyroidism , she was recently in the hospital last month. Readmitted to the hospital with symptoms of shortness of breath. Chest x-ray on admission revealed redemonstration of marked cardiomegaly with resolution of previously seen pulmonary vascular congestion. COPD. BNP level on admission 18,500. Potassium 4.3, BUN 42, creatinine 1.1. Patient was also noted to have abnormal troponins, not consistent with acute coronary syndrome. Likely secondary to renal insufficiency. Mag 1.7. Patient seen and examined this morning, she is lying flat in bed, no difficulty in breathing. No peripheral edema. Blood pressure 102/60 with heart rate in the 80s. 97% on 3 L of oxygen. Objective - Vital Signs Vital signs: Vital Signs Temp 96.4 F L 07/11/17 04:00 Pulse 92 07/11/17 08:16 Resp 18 07/11/17 04:00 BP 103/60 07/11/17 04:00 Pulse Ox 97 07/11/17 04:00 Intake & Output 07/10/17 07/11/17 07/11/17 18:59 06:59 18:59 Intake Total 360 400 420 Balance 360 400 420 Weight 75.4 kg 75.9 kg Intake: IV 160 Sodium Chloride 0.9% 1, 160 000 ml @ 20 mls/hr IV . Q24H YOSELIN Rx#:[id number] Oral 360 240 420 Other: Voiding Method Toilet Toilet # Voids 1 1 - Exam PHYSICAL EXAMINATION: HEENT: Head is atraumatic, normocephalic. Pupils equal, round. Neck is supple. There is no elevated jugular venous pressure. HEART EXAMINATION: S1 and S2 irregularly irregular a systolic murmur is heard. CHEST EXAMINATION: Lungs revealed decreased air exchange throughout. Spiriva to wheezing noted. ABDOMEN: Soft, nontender. Bowel sounds are heard. No organomegaly noted. EXTREMITIES: 1+ peripheral pulses with no evidence of peripheral edema and no calf tenderness noted. NEUROLOGIC patient is awake, alert and oriented -3. . - Labs CBC & Chem 7: 07/09/17 13:00 07/11/17 06:05 Labs: Abnormal Lab Results - Last 24 Hours (Table) 07/11/17 Range/Units 06:05 Chloride 91 L (98-107) mmol/L Carbon Dioxide 41 H* (22-30) mmol/L BUN 42 H (7-17) mg/dL Creatinine 1.18 H (0.52-1.04) mg/dL Assessment and Plan (1) Renal insufficiency syndrome Status: Acute (2) Acute exacerbation of chronic obstructive airways disease Status: Acute (3) Chronic a-fib Status: Acute (4) Elevated troponin Status: Acute (5) Hypothyroid Status: Acute (6) NICM (nonischemic cardiomyopathy) Status: Acute (7) Nicotine dependence Status: Acute (8) PAD (peripheral artery disease) Status: Acute Plan: From cardiology standpoint, we will resume the patient's home dose of by mouth Lasix. She may be able to be discharged once cleared by the primary and we will make her a follow-up appointment to see Dr. Milian in the office post discharge. DNP note has been reviewed, I agree with a documented findings and plan of care. Patient was seen and examined.
--- NOTE | 2017-07-11 12:32 | P.PN ---
Subjective This is a very pleasant 61-year-old female patient who follows with Dr. Chika Lockwood is her primary care physician. She has a history of congestive heart failure, systolic with ejection fraction 3035%, severe pulmonary hypertension, atrial fibrillation, previous ablation, fibromyalgia, hyperlipidemia, hypertension, coronary artery disease with previous NC, hypothyroidism and peripheral vascular disease. She also has a history of severe oxygen dependent stage IV chronic obstructive pulmonary disease. She has had frequent admissions for both COPD and CHF exacerbations. She represented here again on 07/09/2017 with complaints of increasing shortness of breath and increased weight gain after being seen by her day camp counselor was referred here. Chest x-ray did reveal cardiomegaly but there is actual resolution of previously seen pulmonary vascular congestion. She is seen again today 07/11/2017 in follow-up on the selective care unit. She is awake and alert in no acute distress. Her breathing is slightly better today as compared to yesterday. She is maintaining good O2 saturations in the upper 90s on 3 L/m per nasal cannula. She's been afebrile. Hemodynamically stable. Bicarb remained stable at 41. Creatinine improving 1.18. Objective - Vital Signs Vital signs: Vital Signs Temp 96.4 F L 07/11/17 04:00 Pulse 96 07/11/17 12:11 Resp 18 07/11/17 04:00 BP 103/60 07/11/17 04:00 Pulse Ox 97 07/11/17 04:00 Intake & Output 07/10/17 07/11/17 07/11/17 18:59 06:59 18:59 Intake Total 360 400 420 Balance 360 400 420 Weight 75.4 kg 75.9 kg Intake: IV 160 Sodium Chloride 0.9% 1, 160 000 ml @ 20 mls/hr IV . Q24H YOSELIN Rx#:[id number] Oral 360 240 420 Other: Voiding Method Toilet Toilet # Voids 1 1 - Exam GENERAL EXAM: Obese. Features of cushingoid. Alert, comfortable in no apparent distress. HEAD: Normocephalic. EYES: Normal reaction of pupils, equal size. NOSE: Clear with pink turbinates. THROAT: There is crowding the posterior pharynx. No erythema or exudates. NECK: Short. No masses, no JVD. CHEST: No chest wall deformity. LUNGS: Equal air entry with crackles in the bilateral posterior bases. Faint end expiratory wheeze bilaterally. Diminished throughout. CVS: S1 and S2 normal with audible murmur, irregular rhythm. ABDOMEN: No hepatosplenomegaly, normal bowel sounds, no guarding or rigidity. Extremities: There is trace peripheral edema. No clubbing, no cyanosis. Peripheral pulses are intact. - Labs CBC & Chem 7: 07/09/17 13:00 07/11/17 06:05 Labs: Abnormal Lab Results - Last 24 Hours (Table) 07/11/17 Range/Units 06:05 Chloride 91 L (98-107) mmol/L Carbon Dioxide 41 H* (22-30) mmol/L BUN 42 H (7-17) mg/dL Creatinine 1.18 H (0.52-1.04) mg/dL Assessment and Plan Plan: Impression: #1 Acute exacerbation of chronic systolic congestive heart failure with estimated ejection fraction of 30-35%. #2 Acute on chronic exacerbation of severe oxygen dependent Gold stage IV chronic obstructive pulmonary disease on home oxygen. FEV1 value 30% of predicted. #3 Acute on chronic hypoxic respiratory failure secondary to above. #4 Severe pulmonary hypertension. #5 History of atrial fibrillation/flutter with previous ablation. Anticoagulated with apixaban #6 Hyperlipidemia. #7 Hypertension. #8 Coronary artery disease. #9 Hypothyroidism. #10 Degenerative arthritis. #11 Severe peripheral vascular disease. Plan: The Patient Was Seen and Evaluated by Dr. Crowley. She Is Improved Today As Compared to Yesterday. We'll Continue with Her Current Medications. We'll Increase Her Activity As Tolerated. We'll Continue to Follow.
[2017-07-11] MEDS: LORazepam 0.5 MG TAB PO PRN ×2 (12:54→20:36)
--- NOTE | 2017-07-11 15:46 | P.DS ---
Providers Date of admission: 07/09/17 15:57 Expected date of discharge: 07/11/17 Attending physician: Iglesia Ramos Consults: 07/09/17 15:57 Consult Physician Routine Consulting Provider: Jaleel Payton Consult Reason/Comments: CHF Do you want consulting provider notified?: Yes 07/09/17 18:16 Consult Physician Routine Consulting Provider: Don Crowley Consult Reason/Comments: COPD exacerbation, patient known to you Do you want consulting provider notified?: Yes Primary care physician: [facility] [place] Course: FINAL DIAGNOSES: -Acute renal failure, possibly acute tubular necrosis/prerenal in a patient that has been on diuretics and entresto improving -Chronic congestive heart failure from systolic dysfunction ejection fraction 30 % to 35% under lying coronary artery disease. Likely not acute exacerbation -Atrial flutter/fibrillation, persistent, controlled rate -Chronic obstructive pulmonary disease, end-stage, in an ex-smoker. -Rest leg syndrome. -Chronic fibromyalgia. -Hypotension from volume loss. -Hyperlipidemia. -Primary osteoporosis multiple joints, bilaterally. -Chronic hypoxic respiratory failure underlying chronic obstructive pleuritic disease, uses home oxygen -Hypothyroidism. -Hyperkalemia from renal failure and patient being on and entresto, resolved HOSPTIAL COURSE: 61-year-old female presented with worsening shortness of breath, 20 pound weight gain in the last week weakness and tired. Appeared to be acute exacerbation of CHF, however she was admitted for acute renal failure.. Cardiology consulted, given IV Lasix and responded well. IV Lasix converted back to oral medication patient is not in an acute exacerbation exacerbation of her CHF. Pulmonology consulted no changes made to her current medication regimen. Diuretics were held due to acute renal failure, patient feeling better , breathing is easy able to lay flat in bed with no breathing difficulties. Tolerating her diet, ambulatory to and from the bathroom, continues to wear supplemental oxygen for without it she desaturates into the low 80s. Last BM on 07/09/2017. Overall condition is stabilized kidney function is improved patient is stable for discharge home with home care. Should follow-up with cardiology in a week's time. PHYSICAL EXAM: CARDIOVASCULAR: Regular rhythm, rate controlled, no edema noted. RESPIRATORY: Effort normal, lungs decreased breath sounds bilaterally. 2 L supplemental oxygen on at all times Patient was seen and examined by nurse practitioner Cathie Monk in all elements of the case discussed with attending Dr. Ramos DISPOSITION: Home with home care. Patient Condition at Discharge: Stable Plan - Discharge Summary New Discharge Prescriptions: Continue Levothyroxine Sodium [Synthroid] 125 mcg PO DAILY@0600 Metoprolol Tartrate [Lopressor] 50 mg PO TID@0800,1200,1700 Levalbuterol Tartrate [Xopenex Hfa Inhaler] 2 puff INHALATION RT-Q6H PRN PRN Reason: Shortness Of Breath Aspirin EC [Ecotrin Low Dose] 81 mg PO HS@2100 Melatonin 5 mg PO HS PRN PRN Reason: Insomnia Famotidine [Pepcid] 20 mg PO DAILY@0800 LORazepam [Ativan] 0.5 mg PO Q8H PRN #20 tab PRN Reason: Anxiety Ferrous Sulfate [Iron (65 MG Elemental)] 325 mg PO BID@0800,2100 Clopidogrel [Plavix] 75 mg PO DAILY@0800 Apixaban [Eliquis] 5 mg PO BID@0800,2100 Atorvastatin [Lipitor] 80 mg PO HS@2100 Formoterol Fumarate [Perforomist] 20 mcg INHALATION RT-BID@0800,1700 Potassium Chloride [K-Tab ER] 20 meq PO DAILY #1 tablet.er HYDROcodone/APAP 7.5-325MG [[place] 7.5-325] 1 tab PO Q6HR PRN PRN Reason: Pain Escitalopram [Lexapro] 20 mg PO DAILY Ipratropium-Albuterol Nebulize [Duoneb 0.5 mg-3 mg/3 ml Soln] 3 ml INHALATION RT-BID PRN PRN Reason: Shortness Of Breath Or Wheezing Budesonide [Pulmicort] 0.5 mg INHALATION RT-BID Furosemide [Lasix] 80 mg PO BID@0900,1600 #60 tab predniSONE 10 mg PO DAILY #30 tab Discontinued hydrALAZINE HCL [Apresoline] 25 mg PO TID@0800,1200,1700 Sacubitril/Valsartan [Entresto 97 mg-103 mg Tablet] 1 tab PO BID Discharge Medication List Levothyroxine Sodium [Synthroid] 125 mcg PO DAILY@0600 05/14/15 [History] Metoprolol Tartrate [Lopressor] 50 mg PO TID@0800,1200,1700 08/02/15 [History] Levalbuterol Tartrate [Xopenex Hfa Inhaler] 2 puff INHALATION RT-Q6H PRN [History] Aspirin EC [Ecotrin Low Dose] 81 mg PO HS@209912/14/16 [History] Famotidine [Pepcid] 20 mg PO DAILY@0800 12/14/16 [History] Melatonin 5 mg PO HS PRN 12/14/16 [History] LORazepam [Ativan] 0.5 mg PO Q8H PRN #20 tab 12/29/16 [Rx] Apixaban [Eliquis] 5 mg PO BID@0800,209901/15/17 [History] Atorvastatin [Lipitor] 80 mg PO HS@209901/15/17 [History] Clopidogrel [Plavix] 75 mg PO DAILY@0800 01/15/17 [History] Ferrous Sulfate [Iron (65 MG Elemental)] 325 mg PO BID@0800,209901/15/17 [ History] Formoterol Fumarate [Perforomist] 20 mcg INHALATION RT-BID@0800,1700 01/15/17 [ History] Potassium Chloride [K-Tab ER] 20 meq PO DAILY #1 tablet.er 01/22/17 [Rx] Budesonide [Pulmicort] 0.5 mg INHALATION RT-BID 06/18/17 [History] Escitalopram [Lexapro] 20 mg PO DAILY 06/18/17 [History] HYDROcodone/APAP 7.5-325MG [[place] 7.5-325] 1 tab PO Q6HR PRN 06/18/17 [History] Ipratropium-Albuterol Nebulize [Duoneb 0.5 mg-3 mg/3 ml Soln] 3 ml INHALATION RT -BID PRN 06/18/17 [History] Furosemide [Lasix] 80 mg PO BID@0900,1600 #60 tab 06/24/17 [Rx] predniSONE 10 mg PO DAILY #30 tab 06/25/17 [Rx] Follow up Appointment(s)/Referral(s): Jaleel Payton MD [STAFF PHYSICIAN] - ([employer] Sales Representative's Office will call with an appointment) George Lloyd DO [Primary Care Provider] - 1-2 days (Please call to make appointment when office is open.) Ambulatory/Diagnostic Orders: Basic Metabolic Panel [LAB.AMB] Time Frame: 1 Week, Location: Determined By Patient Activity/Diet/Wound Care/Special Instructions: hold entresto till f/ u with cardilogy stop hydralzine for low BP
[2017-07-11] MEDS: SODIUM CHLORIDE 0.9% 1,000 ML IV SCH (16:14)
[2017-07-11] MEDS: FUROSEMIDE 80 MG TAB PO SCH (16:16)
[2017-07-11] MEDS: ATORVASTATIN 80 MG TAB PO SCH (20:36)
[2017-07-11] MEDS: MELATONIN 5 MG TABLET PO PRN (20:36)
[2017-07-11] MEDS: ASPIRIN 81 MG PO SCH (20:36)
[2017-07-12] MEDS: LEVOTHYROXINE 125 MCG TAB PO SCH (06:12)
[2017-07-12 06:13] LABS: Calcium 8.5 mg/dL (8.4-10.2); Potassium 4.4 mmol/L (3.5-5.1)
[2017-07-12] MEDS: IPRATROPIUM-ALBUTEROL 3 ML NEB INHALATION SCH ×4 (08:16→19:44)
[2017-07-12] MEDS: BUDESONIDE 1 MG/2 ML NEBU INHALATION SCH ×2 (08:16→19:44)
[2017-07-12] MEDS: FORMOTEROL FUMARATE 20 MCG/2 ML NEBU INHALATION SCH ×2 (08:29→19:44)
[2017-07-12] MEDS: hydrALAZINE HCL 25 MG TAB PO SCH ×3 (09:01→15:33)
[2017-07-12] MEDS: NITROGLYCERIN OINT 1 INCH/GM PACKET TOPICAL SCH ×3 (09:01→17:20)
[2017-07-12] MEDS: FUROSEMIDE 80 MG TAB PO SCH ×2 (09:03→15:34)
[2017-07-12] MEDS: ESCITALOPRAM 20 MG TAB PO SCH (09:04)
[2017-07-12] MEDS: FAMOTIDINE 20 MG TAB PO SCH (09:04)
[2017-07-12] MEDS: METOPROLOL TARTRATE 50 MG TAB PO SCH ×3 (09:04→17:20)
[2017-07-12] MEDS: APIXABAN 5 MG TAB PO SCH ×2 (09:04→20:12)
[2017-07-12] MEDS: CLOPIDOGREL 75 MG TAB PO SCH (09:11)
[2017-07-12] MEDS: HYDROcodone/APAP 7.5-325MG 1 EACH TAB PO PRN ×3 (09:24→23:48)
[2017-07-12] MEDS: FERROUS SULFATE 325 MG TAB PO SCH ×2 (09:24→20:12)
--- NOTE | 2017-07-12 09:44 | P.PN ---
Subjective Principal diagnosis: Shortness of breath This is a 61-year-old female who follows regularly with Dr. Milian in the office. She has a known history of nonischemic cardiomyopathy, chronic persistent atrial fibrillation, hypertension, PAD, prior atrial flutter ablation , nicotine dependence, moderate to severe COPD with home O2 use, hypothyroidism , she was recently in the hospital last month. Readmitted to the hospital with symptoms of shortness of breath. Chest x-ray on admission revealed redemonstration of marked cardiomegaly with resolution of previously seen pulmonary vascular congestion. COPD. BNP level on admission 18,500. Potassium 4.3, BUN 42, creatinine 1.1. Patient was also noted to have abnormal troponins, not consistent with acute coronary syndrome. Likely secondary to renal insufficiency. Mag 1.7. Patient seen and examined this morning, she is lying flat in bed, no difficulty in breathing. No peripheral edema. Blood pressure 102/60 with heart rate in the 80s. 97% on 3 L of oxygen. 07/12/2017 Patient seen and examined this morning, he slept well last night. Breathing is stable. Sodium 136, potassium 4.4, and 38, creatinine 1.1. Arrangements being made for discharge home today. Objective - Vital Signs Vital signs: Vital Signs Temp 97.0 F L 07/12/17 08:00 Pulse 102 H 07/12/17 08:39 Resp 20 07/12/17 08:00 BP 84/56 07/12/17 08:00 Pulse Ox 93 L 07/12/17 08:16 Intake & Output 07/11/17 07/12/17 07/12/17 18:59 06:59 18:59 Intake Total 760 120 120 Balance 760 120 120 Weight 76.4 kg Intake: IV 160 Sodium Chloride 0.9% 1, 160 000 ml @ 20 mls/hr IV . Q24H YOSELIN Rx#:[id number] Oral 600 120 120 Other: Voiding Method Toilet Toilet Toilet # Voids 2 1 - Exam PHYSICAL EXAMINATION: HEENT: Head is atraumatic, normocephalic. Pupils equal, round. Neck is supple. There is no elevated jugular venous pressure. HEART EXAMINATION: S1 and S2 irregularly irregular a systolic murmur is heard. CHEST EXAMINATION: Lungs revealed decreased air exchange throughout. No audible wheezes today ABDOMEN: Soft, nontender. Bowel sounds are heard. No organomegaly noted. EXTREMITIES: 1+ peripheral pulses with no evidence of peripheral edema and no calf tenderness noted. NEUROLOGIC patient is awake, alert and oriented -3. . - Labs CBC & Chem 7: 07/09/17 13:00 07/12/17 05:44 Labs: Abnormal Lab Results - Last 24 Hours (Table) 07/12/17 Range/Units 05:44 Sodium 136 L (137-145) mmol/L Chloride 92 L (98-107) mmol/L Carbon Dioxide 40 H* (22-30) mmol/L BUN 38 H (7-17) mg/dL Creatinine 1.16 H (0.52-1.04) mg/dL Assessment and Plan (1) Renal insufficiency syndrome Status: Acute (2) Acute exacerbation of chronic obstructive airways disease Status: Acute (3) Chronic a-fib Status: Acute (4) Elevated troponin Status: Acute (5) Hypothyroid Status: Acute (6) NICM (nonischemic cardiomyopathy) Status: Acute (7) Nicotine dependence Status: Acute (8) PAD (peripheral artery disease) Status: Acute Plan: From cardiology standpoint, we will continue current medications. She may be able to be discharged once cleared by the primary and we will make her a follow- up appointment to see Dr. Milian in the office post discharge. DNP note has been reviewed, I agree with a documented findings and plan of care. Patient was seen and examined.
--- NOTE | 2017-07-12 15:00 | P.PN ---
Subjective This is a very pleasant 61-year-old female patient who follows with Dr. Chika Lockwood is her primary care physician. She has a history of congestive heart failure, systolic with ejection fraction 3035%, severe pulmonary hypertension, atrial fibrillation, previous ablation, fibromyalgia, hyperlipidemia, hypertension, coronary artery disease with previous [place], hypothyroidism and peripheral vascular disease. She also has a history of severe oxygen dependent stage IV chronic obstructive pulmonary disease. She has had frequent admissions for both COPD and CHF exacerbations. She represented here again on 07/09/2017 with complaints of increasing shortness of breath and increased weight gain after being seen by her chief station engineer was referred here. Chest x-ray did reveal cardiomegaly but there is actual resolution of previously seen pulmonary vascular congestion. She is seen again today 07/11/2017 in follow-up on the selective care unit. She is awake and alert in no acute distress. Her breathing is slightly better today as compared to yesterday. She is maintaining good O2 saturations in the upper 90s on 3 L/m per nasal cannula. She's been afebrile. Hemodynamically stable. Bicarb remained stable at 41. Creatinine improving 1.18. The patient is seen again today 07/12/2017 in follow-up on the selective care unit. She is resting comfortably in bed. The plan was for discharge today however she stated she did not have a ride and will most likely be discharged tomorrow. She denies any worsening shortness of breath at this time. She has a loose nonproductive cough. She is dyspneic on minimal exertion but quite comfortable at rest and able to complete sentences. Her creatinine continues to improve at 1.16. Bicarb slightly better at 40. She is maintaining good O2 saturations in the upper 90s on 3 L/m per nasal cannula. She is afebrile. Hemodynamically stable. Objective - Vital Signs Vital signs: Vital Signs Temp 97.0 F L 07/12/17 11:05 Pulse 89 07/12/17 12:14 Resp 18 07/12/17 11:05 BP 104/60 07/12/17 11:05 Pulse Ox 96 07/12/17 11:05 Intake & Output 07/11/17 07/12/17 07/12/17 18:59 06:59 18:59 Intake Total 760 120 300 Output Total 200 Balance 760 120 100 Weight 76.4 kg Intake: IV 160 Sodium Chloride 0.9% 1, 160 000 ml @ 20 mls/hr IV . Q24H YOSELIN Rx#:[id number] Oral 600 120 300 Output: Urine 200 Other: Voiding Method Toilet Toilet Toilet # Voids 2 1 1 - Exam GENERAL EXAM: Obese. Features of cushingoid. Alert, comfortable in no apparent distress. HEAD: Normocephalic. EYES: Normal reaction of pupils, equal size. NOSE: Clear with pink turbinates. THROAT: There is crowding the posterior pharynx. No erythema or exudates. NECK: Short. No masses, no JVD. CHEST: No chest wall deformity. LUNGS: Equal air entry with crackles in the bilateral posterior bases. Faint end expiratory wheeze bilaterally. Diminished throughout. CVS: S1 and S2 normal with audible murmur, irregular rhythm. ABDOMEN: No hepatosplenomegaly, normal bowel sounds, no guarding or rigidity. Extremities: There is trace peripheral edema. No clubbing, no cyanosis. Peripheral pulses are intact. - Labs CBC & Chem 7: 07/09/17 13:00 07/12/17 05:44 Labs: Abnormal Lab Results - Last 24 Hours (Table) 07/12/17 Range/Units 05:44 Sodium 136 L (137-145) mmol/L Chloride 92 L (98-107) mmol/L Carbon Dioxide 40 H* (22-30) mmol/L BUN 38 H (7-17) mg/dL Creatinine 1.16 H (0.52-1.04) mg/dL Assessment and Plan Plan: Impression: #1 Acute exacerbation of chronic systolic congestive heart failure with estimated ejection fraction of 30-35%. #2 Acute on chronic exacerbation of severe oxygen dependent Gold stage IV chronic obstructive pulmonary disease on home oxygen. FEV1 value 30% of predicted. #3 Acute on chronic hypoxic respiratory failure secondary to above. #4 Severe pulmonary hypertension. #5 History of atrial fibrillation/flutter with previous ablation. Anticoagulated with apixaban #6 Hyperlipidemia. #7 Hypertension. #8 Coronary artery disease. #9 Hypothyroidism. #10 Degenerative arthritis. #11 Severe peripheral vascular disease. Plan: The Patient Was Seen and Evaluated by Dr. Crowley. She is back to her baseline as far as her pulmonary status is concerned. Most likely discharge within the next 24 hours. We'll continue her medications. We'll increase her activity as tolerated. We'll continue to follow.
[2017-07-12] MEDS: LORazepam 0.5 MG TAB PO PRN ×2 (15:34→23:48)
[2017-07-12] MEDS: SODIUM CHLORIDE 0.9% 1,000 ML IV SCH (16:01)
[2017-07-12] MEDS: ATORVASTATIN 80 MG TAB PO SCH (20:12)
[2017-07-12] MEDS: ASPIRIN 81 MG PO SCH (20:12)
[2017-07-13] MEDS: LEVOTHYROXINE 125 MCG TAB PO SCH (06:01)
[2017-07-13 06:48] LABS: Calcium 8.6 mg/dL (8.4-10.2); Potassium 4.4 mmol/L (3.5-5.1)
[2017-07-13] MEDS: LORazepam 0.5 MG TAB PO PRN ×2 (07:56→21:07)
[2017-07-13] MEDS: METOPROLOL TARTRATE 50 MG TAB PO SCH ×3 (07:57→16:29)
[2017-07-13] MEDS: CLOPIDOGREL 75 MG TAB PO SCH (07:57)
[2017-07-13] MEDS: FAMOTIDINE 20 MG TAB PO SCH (07:57)
[2017-07-13] MEDS: FERROUS SULFATE 325 MG TAB PO SCH ×2 (07:57→20:06)
[2017-07-13] MEDS: hydrALAZINE HCL 25 MG TAB PO SCH ×3 (07:57→16:28)
[2017-07-13] MEDS: ESCITALOPRAM 20 MG TAB PO SCH (07:57)
[2017-07-13] MEDS: HYDROcodone/APAP 7.5-325MG 1 EACH TAB PO PRN ×3 (07:58→21:07)
[2017-07-13] MEDS: FUROSEMIDE 80 MG TAB PO SCH ×2 (07:58→16:29)
[2017-07-13] MEDS: APIXABAN 5 MG TAB PO SCH ×2 (07:58→20:06)
[2017-07-13] MEDS: BUDESONIDE 1 MG/2 ML NEBU INHALATION SCH ×2 (08:23→19:16)
[2017-07-13] MEDS: FORMOTEROL FUMARATE 20 MCG/2 ML NEBU INHALATION SCH ×2 (08:23→19:16)
[2017-07-13] MEDS: IPRATROPIUM-ALBUTEROL 3 ML NEB INHALATION SCH ×4 (08:23→19:16)
--- NOTE | 2017-07-13 09:44 | P.PN ---
Subjective Principal diagnosis: Shortness of breath This is a 61-year-old female who follows regularly with Dr. Milian in the office. She has a known history of nonischemic cardiomyopathy, chronic persistent atrial fibrillation, hypertension, PAD, prior atrial flutter ablation , nicotine dependence, moderate to severe COPD with home O2 use, hypothyroidism , she was recently in the hospital last month. Readmitted to the hospital with symptoms of shortness of breath. Chest x-ray on admission revealed redemonstration of marked cardiomegaly with resolution of previously seen pulmonary vascular congestion. COPD. BNP level on admission 18,500. Potassium 4.3, BUN 42, creatinine 1.1. Patient was also noted to have abnormal troponins, not consistent with acute coronary syndrome. Likely secondary to renal insufficiency. Mag 1.7. Patient seen and examined this morning, she is lying flat in bed, no difficulty in breathing. No peripheral edema. Blood pressure 102/60 with heart rate in the 80s. 97% on 3 L of oxygen. 07/12/2017 Patient seen and examined this morning, he slept well last night. Breathing is stable. Sodium 136, potassium 4.4, and 38, creatinine 1.1. Arrangements being made for discharge home today. 07/13/2017 Patient seen and examined this morning, she is being discharged home today. Breathing stable. We will make her a follow-up appointment with Dr. Milian. Objective - Vital Signs Vital signs: Vital Signs Temp 96.8 F L 07/13/17 08:00 Pulse 100 07/13/17 08:52 Resp 22 07/13/17 08:00 BP 111/68 07/13/17 08:00 Pulse Ox 94 L 07/13/17 08:00 Intake & Output 07/12/17 07/13/17 07/13/17 18:59 06:59 18:59 Intake Total 540 200 180 Output Total 200 Balance 340 200 180 Weight 76.6 kg Intake: Oral 540 200 180 Output: Urine 200 Other: Voiding Method Toilet Toilet Toilet # Voids 1 1 - Exam PHYSICAL EXAMINATION: HEENT: Head is atraumatic, normocephalic. Pupils equal, round. Neck is supple. There is no elevated jugular venous pressure. HEART EXAMINATION: S1 and S2 irregularly irregular a systolic murmur is heard. CHEST EXAMINATION: Lungs revealed decreased air exchange throughout. No audible wheezes today ABDOMEN: Soft, nontender. Bowel sounds are heard. No organomegaly noted. EXTREMITIES: 1+ peripheral pulses with no evidence of peripheral edema and no calf tenderness noted. NEUROLOGIC patient is awake, alert and oriented -3. . - Labs CBC & Chem 7: 07/09/17 13:00 07/13/17 06:08 Labs: Abnormal Lab Results - Last 24 Hours (Table) 07/13/17 Range/Units 06:08 Chloride 90 L (98-107) mmol/L Carbon Dioxide 42 H* (22-30) mmol/L BUN 34 H (7-17) mg/dL Creatinine 1.20 H (0.52-1.04) mg/dL Assessment and Plan (1) Renal insufficiency syndrome Status: Acute (2) Acute exacerbation of chronic obstructive airways disease Status: Acute (3) Chronic a-fib Status: Acute (4) Elevated troponin Status: Acute (5) Hypothyroid Status: Acute (6) NICM (nonischemic cardiomyopathy) Status: Acute (7) Nicotine dependence Status: Acute (8) PAD (peripheral artery disease) Status: Acute Plan: From cardiology standpoint, we will continue current medications. She may be able to be discharged once cleared by the primary and we will make her a follow- up appointment to see Dr. Milian in the office post discharge. DNP note has been reviewed, I agree with a documented findings and plan of care. Patient was seen and examined.
--- NOTE | 2017-07-13 11:39 | P.PN ---
Subjective This is a very pleasant 61-year-old female patient who follows with Dr. Chika Lockwood is her primary care physician. She has a history of congestive heart failure, systolic with ejection fraction 3035%, severe pulmonary hypertension, atrial fibrillation, previous ablation, fibromyalgia, hyperlipidemia, hypertension, coronary artery disease with previous [place], hypothyroidism and peripheral vascular disease. She also has a history of severe oxygen dependent stage IV chronic obstructive pulmonary disease. She has had frequent admissions for both COPD and CHF exacerbations. She represented here again on 07/09/2017 with complaints of increasing shortness of breath and increased weight gain after being seen by her signal worker was referred here. Chest x-ray did reveal cardiomegaly but there is actual resolution of previously seen pulmonary vascular congestion. She is seen again today 07/11/2017 in follow-up on the selective care unit. She is awake and alert in no acute distress. Her breathing is slightly better today as compared to yesterday. She is maintaining good O2 saturations in the upper 90s on 3 L/m per nasal cannula. She's been afebrile. Hemodynamically stable. Bicarb remained stable at 41. Creatinine improving 1.18. The patient is seen again today 07/12/2017 in follow-up on the selective care unit. She is resting comfortably in bed. The plan was for discharge today however she stated she did not have a ride and will most likely be discharged tomorrow. She denies any worsening shortness of breath at this time. She has a loose nonproductive cough. She is dyspneic on minimal exertion but quite comfortable at rest and able to complete sentences. Her creatinine continues to improve at 1.16. Bicarb slightly better at 40. She is maintaining good O2 saturations in the upper 90s on 3 L/m per nasal cannula. She is afebrile. Hemodynamically stable. The patient is seen again today 07/13/2017 in follow-up on the selective care unit. She is resting comfortably in bed. She continues to maintain O2 saturations in the mid 90s on 3 L/m per nasal cannula. She's been afebrile. Slightly tachycardic. Current bicarb 42. Creatinine 1.20. Objective - Vital Signs Vital signs: Vital Signs Temp 96.8 F L 07/13/17 08:00 Pulse 96 07/13/17 11:23 Resp 22 07/13/17 08:00 BP 111/68 07/13/17 08:00 Pulse Ox 94 L 07/13/17 08:00 Intake & Output 07/12/17 07/13/17 07/13/17 18:59 06:59 18:59 Intake Total 540 200 180 Output Total 200 Balance 340 200 180 Weight 76.6 kg Intake: Oral 540 200 180 Output: Urine 200 Other: Voiding Method Toilet Toilet Toilet # Voids 1 1 - Exam GENERAL EXAM: Obese. Features of cushingoid. Alert, comfortable in no apparent distress. HEAD: Normocephalic. EYES: Normal reaction of pupils, equal size. NOSE: Clear with pink turbinates. THROAT: There is crowding the posterior pharynx. No erythema or exudates. NECK: Short. No masses, no JVD. CHEST: No chest wall deformity. LUNGS: Equal air entry with crackles in the bilateral posterior bases. Faint end expiratory wheeze bilaterally. Diminished throughout. CVS: S1 and S2 normal with audible murmur, irregular rhythm. ABDOMEN: No hepatosplenomegaly, normal bowel sounds, no guarding or rigidity. Extremities: There is trace peripheral edema. No clubbing, no cyanosis. Peripheral pulses are intact. - Labs CBC & Chem 7: 07/09/17 13:00 07/13/17 06:08 Labs: Abnormal Lab Results - Last 24 Hours (Table) 07/13/17 Range/Units 06:08 Chloride 90 L (98-107) mmol/L Carbon Dioxide 42 H* (22-30) mmol/L BUN 34 H (7-17) mg/dL Creatinine 1.20 H (0.52-1.04) mg/dL Assessment and Plan Plan: Impression: #1 Acute exacerbation of chronic systolic congestive heart failure with estimated ejection fraction of 30-35%. #2 Acute on chronic exacerbation of severe oxygen dependent Gold stage IV chronic obstructive pulmonary disease on home oxygen. FEV1 value 30% of predicted. #3 Acute on chronic hypoxic respiratory failure secondary to above. #4 Severe pulmonary hypertension. #5 History of atrial fibrillation/flutter with previous ablation. Anticoagulated with apixaban #6 Hyperlipidemia. #7 Hypertension. #8 Coronary artery disease. #9 Hypothyroidism. #10 Degenerative arthritis. #11 Severe peripheral vascular disease. Plan: The patient was seen and evaluated by Dr. Crowley. She is cleared for discharge from the pulmonary standpoint. Her overall prognosis remains quite poor based on the severity of her lung function and her heart function. He'll continue with her home pulmonary medications. She is anticoagulated with request. Diuretics per cardiology. She'll follow-up in our office in 1-2 weeks' time. She is however encouraged to call sooner with any recurrence of symptoms or other questions or concerns. I performed a history and physical examination of the patient and discussed the management with Jennifer Montes, our nurse practitioner. I reviewed her notes and agree with the documented findings and plan of care. Her lungs have faint end expiratory wheezing. Diminished throughout.
--- NOTE | 2017-07-13 14:10 | DS ---
DISCHARGE SUMMARY DATE OF SERVICE: 07/11/2017. ATTENDING NOTE: This patient seen examined by me. I discussed with my nurse practitioner, Ms. Monk. The patient was seen by me yesterday on 07/11/2017. The patient doing better, lying in bed, did tolerate her diet. BUN 42, creatinine 1.18. The patient is stable for discharge to home. Discussed with the patient. Discussed with Dr. Rudd. Medications adjusted. MMODL / IJN: [id number] /
[2017-07-13] MEDS: ATORVASTATIN 80 MG TAB PO SCH (20:06)
[2017-07-13] MEDS: ASPIRIN 81 MG PO SCH (20:06)
[2017-07-13] MEDS: MELATONIN 5 MG TABLET PO PRN (21:09)
[2017-07-14] MEDS: LEVOTHYROXINE 125 MCG TAB PO SCH (06:10)
[2017-07-14 07:48] VITALS: BP 121/67; TEMP 97.3
[2017-07-14] MEDS: FORMOTEROL FUMARATE 20 MCG/2 ML NEBU INHALATION SCH (08:01)
[2017-07-14] MEDS: IPRATROPIUM-ALBUTEROL 3 ML NEB INHALATION SCH ×2 (08:01→11:59)
[2017-07-14] MEDS: BUDESONIDE 1 MG/2 ML NEBU INHALATION SCH (08:01)
[2017-07-14] MEDS: HYDROcodone/APAP 7.5-325MG 1 EACH TAB PO PRN (08:05)
[2017-07-14] MEDS: LORazepam 0.5 MG TAB PO PRN (08:05)
[2017-07-14] MEDS: ESCITALOPRAM 20 MG TAB PO SCH (08:06)
[2017-07-14] MEDS: hydrALAZINE HCL 25 MG TAB PO SCH ×2 (08:06→12:53)
[2017-07-14] MEDS: METOPROLOL TARTRATE 50 MG TAB PO SCH ×2 (08:06→12:53)
[2017-07-14] MEDS: CLOPIDOGREL 75 MG TAB PO SCH (08:07)
[2017-07-14] MEDS: FAMOTIDINE 20 MG TAB PO SCH (08:07)
[2017-07-14] MEDS: FUROSEMIDE 80 MG TAB PO SCH (08:07)
[2017-07-14] MEDS: APIXABAN 5 MG TAB PO SCH (08:07)
[2017-07-14] MEDS: FERROUS SULFATE 325 MG TAB PO SCH (08:07)
[2017-07-14 12:02] VITALS: PULSE 80
[2017-07-14 12:49] VITALS: RESP 16
--- NOTE | 2017-07-15 22:21 | P.PN ---
Subjective Principal diagnosis: Acute COPD exacerbation and HECTOR This is a 61-year-old female with a known history of nonischemic cardiomyopathy, chronic persistent atrial fibrillation, hypertension, PAD, prior atrial flutter ablation, nicotine dependence, moderate to severe COPD with home O2 use, hypothyroidism, she was recently in the hospital last month. Readmitted to the hospital with symptoms of shortness of breath. Chest x-ray on admission revealed redemonstration of marked cardiomegaly with resolution of previously seen pulmonary vascular congestion. COPD. BNP level on admission 18,500. Potassium 4.3, BUN 42, creatinine 1.1. Patient was also noted to have abnormal troponins, not consistent with acute coronary syndrome. Likely secondary to renal insufficiency. On 07/12/2017 Patient says that she still very weak and bracing is not at baseline. No fever no chills. Renal function is stable. Patient is cleared from cardiology and pulmonary. Patient denied any complaints of chest pain or worsening short of breath. No fever no chills. No nausea vomiting or abdominal pain. Patient is tolerating diet. Otherwise no acute overnight issues. Objective - Vital Signs Vital signs: Vital Signs Temp 97.2 F L 07/12/17 20:00 Pulse 72 07/12/17 20:04 Resp 18 07/12/17 20:00 BP 103/71 07/12/17 20:00 Pulse Ox 99 07/12/17 20:00 Intake & Output 07/12/17 07/12/17 07/13/17 06:59 18:59 06:59 Intake Total 120 540 Output Total 200 Balance 120 340 Weight 76.4 kg Intake: Oral 120 540 Output: Urine 200 Other: Voiding Method Toilet Toilet Toilet # Voids 1 1 1 - Exam GENERAL APPEARANCE: Lying in bed, tired appearing, lethargic. EYES: Pupils equal. Conjunctiva normal. NECK: JVD not raised. Mass not palpable. RESPIRATORY: Respiratory effort normal. Lungs decreased bilaterally to auscultation. CARDIOVASCULAR: Irregular rhythm controlled No edema. ABDOMEN: Soft. Liver and spleen not palpable. No tenderness. No mass palpable. PSYCHIATRY: Alert and oriented x3. Mood and affect normal. - Labs CBC & Chem 7: 07/09/17 13:00 07/13/17 06:08 Labs: Abnormal Lab Results - Last 24 Hours (Table) 09/14/17 Range/Units 05:44 Sodium 136 L (137-145) mmol/L Chloride 92 L (98-107) mmol/L Carbon Dioxide 40 H* (22-30) mmol/L BUN 38 H (7-17) mg/dL Creatinine 1.16 H (0.52-1.04) mg/dL Assessment and Plan Plan: -Acute renal failure, possibly acute tubular necrosis/prerenal in a patient that has been on diuretics and entresto improving -Chronic congestive heart failure from systolic dysfunction ejection fraction 30 % to 35% under lying coronary artery disease. Likely not acute exacerbation -Atrial flutter/fibrillation, persistent, controlled rate -Chronic obstructive pulmonary disease, end-stage, in an ex-smoker. -Rest leg syndrome. -Chronic fibromyalgia. -Hypotension from volume loss. -Hyperlipidemia. -Primary osteoporosis multiple joints, bilaterally. -Chronic hypoxic respiratory failure underlying chronic obstructive pleuritic disease, uses home oxygen -Hypothyroidism. -Hyperkalemia from renal failure and patient being on and entresto, resolved Plan: Patient will be continued on current management including breathing treatments and anticoagulation. Anticipate discharge in 1-2 days. Time with Patient: Greater than 30
--- NOTE | 2017-07-15 22:23 | P.PN ---
Subjective Principal diagnosis: Acute COPD exacerbation and HECTOR This is a 61-year-old female with a known history of nonischemic cardiomyopathy, chronic persistent atrial fibrillation, hypertension, PAD, prior atrial flutter ablation, nicotine dependence, moderate to severe COPD with home O2 use, hypothyroidism, she was recently in the hospital last month. Readmitted to the hospital with symptoms of shortness of breath. Chest x-ray on admission revealed redemonstration of marked cardiomegaly with resolution of previously seen pulmonary vascular congestion. COPD. BNP level on admission 18,500. Potassium 4.3, BUN 42, creatinine 1.1. Patient was also noted to have abnormal troponins, not consistent with acute coronary syndrome. Likely secondary to renal insufficiency. On 07/12/2017 Patient says that she still very weak and bracing is not at baseline. No fever no chills. Renal function is stable. Patient is cleared from cardiology and pulmonary. 07/13/2017 Patient denied any new complaints. Patient wants to stay 1 more day. No acute overnight issues. Still feels lethargic and anxious. Patient denied any complaints of chest pain or worsening short of breath. No fever no chills. No nausea vomiting or abdominal pain. Patient is tolerating diet. Otherwise no acute overnight issues. Objective - Vital Signs Vital signs: Vital Signs Temp 97.4 F L 07/13/17 15:24 Pulse 102 H 07/13/17 19:42 Resp 16 07/13/17 15:24 BP 95/55 07/13/17 16:20 Pulse Ox 91 L 07/13/17 15:24 Intake & Output 07/13/17 07/13/17 07/14/17 06:59 18:59 06:59 Intake Total 200 360 Output Total 300 Balance 200 60 Weight 76.6 kg Intake: Oral 200 360 Output: Urine 300 Other: Voiding Method Toilet Toilet # Voids 1 1 - Exam GENERAL APPEARANCE: Lying in bed, tired appearing, lethargic. EYES: Pupils equal. Conjunctiva normal. NECK: JVD not raised. Mass not palpable. RESPIRATORY: Respiratory effort normal. Lungs decreased bilaterally to auscultation. CARDIOVASCULAR: Irregular rhythm controlled No edema. ABDOMEN: Soft. Liver and spleen not palpable. No tenderness. No mass palpable. PSYCHIATRY: Alert and oriented x3. Mood and affect normal. - Labs CBC & Chem 7: 07/09/17 13:00 07/13/17 06:08 Labs: Abnormal Lab Results - Last 24 Hours (Table) 07/13/17 Range/Units 06:08 Chloride 90 L (98-107) mmol/L Carbon Dioxide 42 H* (22-30) mmol/L BUN 34 H (7-17) mg/dL Creatinine 1.20 H (0.52-1.04) mg/dL Assessment and Plan Plan: -Acute renal failure, possibly acute tubular necrosis/prerenal in a patient that has been on diuretics and entresto improving -Chronic congestive heart failure from systolic dysfunction ejection fraction 30 % to 35% under lying coronary artery disease. Likely not acute exacerbation -Atrial flutter/fibrillation, persistent, controlled rate -Chronic obstructive pulmonary disease, end-stage, in an ex-smoker. -Rest leg syndrome. -Chronic fibromyalgia. -Hypotension from volume loss. -Hyperlipidemia. -Primary osteoporosis multiple joints, bilaterally. -Chronic hypoxic respiratory failure underlying chronic obstructive pleuritic disease, uses home oxygen -Hypothyroidism. -Hyperkalemia from renal failure and patient being on and entresto, resolved Plan: Patient will be continued on current management including breathing treatments and anticoagulation. Anticipate discharge in 1-2 days.
--- NOTE | 2017-07-15 22:24 | P.PN ---
Subjective Principal diagnosis: Acute COPD exacerbation and HECTOR shortness of breath. Chest x-ray on admission revealed redemonstration of marked cardiomegaly with resolution of previously seen pulmonary vascular congestion. COPD. BNP level on admission 18,500. Potassium 4.3, BUN 42, creatinine 1.1. Patient was also noted to have abnormal troponins, not consistent with acute coronary syndrome. Likely secondary to renal insufficiency. On 07/12/2017 Patient says that she still very weak and bracing is not at baseline. No fever no chills. Renal function is stable. Patient is cleared from cardiology and pulmonary. 07/13/2017 Patient denied any new complaints. Patient wants to stay 1 more day. No acute overnight issues. Still feels lethargic and anxious. 07/13/2017 Patient does not have any acute overnight issues. Breathing status is stable. Saturating well on nasal cannula. Hemodynamically stable and patient is stable to be discharged home today. Patient denied any complaints of chest pain or worsening short of breath. No fever no chills. No nausea vomiting or abdominal pain. Patient is tolerating diet. Otherwise no acute overnight issues. Objective - Vital Signs Vital signs: Vital Signs Temp 97.3 F L 07/14/17 07:00 Pulse 80 07/14/17 12:09 Resp 16 07/14/17 12:09 BP 121/67 07/14/17 07:00 Pulse Ox 93 L 07/14/17 08:02 - Exam GENERAL APPEARANCE: Lying in bed, tired appearing, lethargic. EYES: Pupils equal. Conjunctiva normal. NECK: JVD not raised. Mass not palpable. RESPIRATORY: Respiratory effort normal. Lungs decreased bilaterally to auscultation. CARDIOVASCULAR: Irregular rhythm controlled No edema. ABDOMEN: Soft. Liver and spleen not palpable. No tenderness. No mass palpable. PSYCHIATRY: Alert and oriented x3. Mood and affect normal. - Labs CBC & Chem 7: 07/09/17 13:00 07/13/17 06:08 Assessment and Plan Plan: -Acute renal failure, possibly acute tubular necrosis/prerenal in a patient that has been on diuretics and entresto improving -Chronic congestive heart failure from systolic dysfunction ejection fraction 30 % to 35% under lying coronary artery disease. Likely not acute exacerbation -Atrial flutter/fibrillation, persistent, controlled rate -Chronic obstructive pulmonary disease, end-stage, in an ex-smoker. -Rest leg syndrome. -Chronic fibromyalgia. -Hypotension from volume loss. -Hyperlipidemia. -Primary osteoporosis multiple joints, bilaterally. -Chronic hypoxic respiratory failure underlying chronic obstructive pleuritic disease, uses home oxygen -Hypothyroidism. -Hyperkalemia from renal failure and patient being on and entresto, resolved Plan: Patient will be continued on current management including breathing treatments and anticoagulation. Anticipate discharge in 1-2 days.
== END 2017-07-14 14:35 | disposition home health service (06) | DRG 291 ==
LOC: EC 12:02 → 6SEL 15:57 → 4MS4W 07-13 15:00
PROVIDERS: ADMIT Hospitalist; ATTEND Hospitalist
DX: I11.0 Hypertensive heart disease with heart failure (principal); N17.0 Acute kidney failure with tubular necrosis; I48.92 Unspecified atrial flutter; J96.11 Chronic respiratory failure with hypoxia; I48.1 Persistent atrial fibrillation; J44.1 Chronic obstructive pulmonary disease with (acute) exacerbation; I27.2 Other secondary pulmonary hypertension; G25.81 Restless legs syndrome; I50.23 Acute on chronic systolic (congestive) heart failure; I25.10 Atherosclerotic heart disease of native coronary artery without angina pectoris; M79.7 Fibromyalgia; E78.5 Hyperlipidemia, unspecified; M19.91 Primary osteoarthritis, unspecified site; E03.9 Hypothyroidism, unspecified; I07.1 Rheumatic tricuspid insufficiency; F32.9 Major depressive disorder, single episode, unspecified; E87.5 Hyperkalemia; K21.9 Gastro-esophageal reflux disease without esophagitis; I73.9 Peripheral vascular disease, unspecified; F40.240 Claustrophobia; M81.0 Age-related osteoporosis without current pathological fracture; Z88.3 Allergy status to other anti-infective agents; Z88.8 Allergy status to other drugs, medicaments and biological substances; Z79.01 Long term (current) use of anticoagulants; Z79.02 Long term (current) use of antithrombotics/antiplatelets; Z79.891 Long term (current) use of opiate analgesic; Z79.51 Long term (current) use of inhaled steroids; Z79.899 Other long term (current) drug therapy; Z82.49 Family history of ischemic heart disease and other diseases of the circulatory system; Z79.82 Long term (current) use of aspirin; Z80.9 Family history of malignant neoplasm, unspecified; Z87.891 Personal history of nicotine dependence; I25.2 Old myocardial infarction; Z99.81 Dependence on supplemental oxygen; Z86.79 Personal history of other diseases of the circulatory system; Z90.49 Acquired absence of other specified parts of digestive tract
CPT/HCPCS: 36415; 71020; 80048; 80053; 81001; 82550; 82553; 83735; 83880; 84484; 85025; 85610; 85730; 93005; 94640; 94760; 96374; 99291

== ENCOUNTER 2017-07-14 18:46 | Inpatient (IN) | payer MEDICARE, OTHER ==
[2017-07-14] MEDS ORDERED: DILTIAZEM 125 MG in SODIUM CHLORIDE 0.9% 100 ML IV ONE (19:34)
[2017-07-14] MEDS ORDERED: DILTIAZEM 5 MG/ML 5 ML VIAL IVP STA (19:34)
[2017-07-14] MEDS ORDERED: SODIUM CHLORIDE 0.9% 1,000 ML IV STA (19:34)
[2017-07-14 20:06] LABS: Anisocytosis Slight; CH 32.8; CHCM 30.7; HCT 37.5 % (34.0-46.0); HDW 2.81; HGB 11.5 gm/dL (11.4-16.0); Hypochromasia Moderate; MCH 33.1 pg (25.0-35.0); MCHC 30.7 g/dL (31.0-37.0); MCV 107.9 fL (80.0-100.0); Macrocytosis Marked; Mean Platelet Volume 8.6; RBC 3.48 m/uL (3.80-5.40); RDW 18.5 % (11.5-15.5); WBC 4.9 k/uL (3.8-10.6); WBC (Perox) 5.31
[2017-07-14 20:08] LABS: Calcium 8.6 mg/dL (8.4-10.2); Magnesium 1.4 mg/dL (1.6-2.3); Phosphorous 4.5 mg/dL (2.5-4.5); Potassium 3.9 mmol/L (3.5-5.1); Total Bilirubin 0.9 mg/dL (0.2-1.3); Total Protein 5.8 g/dL (6.3-8.2)
[2017-07-14 20:14] LABS: INR 1.3 (<1.2); Partial Thromboplastin Time 24.3 sec (22.0-30.0); Prothrombin Time 13.1 sec (9.0-12.0)
--- NOTE | 2017-07-14 20:21 | ED ---
General Adult HPI - General Chief complaint: ENT Stated complaint: Nosebleed Time Seen by Provider: 07/14/17 19:17 Source: patient, EMS, RN notes reviewed, old records reviewed Mode of arrival: EMS Limitations: no limitations - History of Present Illness Initial comments: This is a 61-year-old female here for evaluation. This patient presents for evaluation regarding nosebleed, not feeling well. Patient does resist discharged from the hospital at the time she had some interventions in her legs and arterial disease. Patient states she went home has been started on Plavix and is had a nosebleed. She states she feels mildly lightheaded mildly dizzy. She does also suffer from COPD and CHF. Mild shortness of breath - Related Data Home Medications Medication Instructions Recorded Confirmed Levothyroxine Sodium [Synthroid] 125 mcg PO DAILY@0600 05/14/15 07/14/17 Metoprolol Tartrate [Lopressor] 50 mg PO TID@0800,1200,1700 08/02/15 07/14/17 Levalbuterol Tartrate [Xopenex Hfa 2 puff INHALATION RT-Q6H PRN 01/21/16 Inhaler] Aspirin EC [Ecotrin Low Dose] 81 mg PO HS@209912/14/16 07/14/17 Famotidine [Pepcid] 20 mg PO DAILY@0800 12/14/16 07/14/17 Melatonin 5 mg PO HS PRN 12/14/16 07/14/17 Apixaban [Eliquis] 5 mg PO BID@0800,209901/15/17 07/14/17 Atorvastatin [Lipitor] 80 mg PO HS@209901/15/17 07/14/17 Clopidogrel [Plavix] 75 mg PO DAILY@0800 01/15/17 07/14/17 Ferrous Sulfate [Iron (65 MG 325 mg PO BID@0800,2100 01/15/17 07/14/17 Elemental)] Formoterol Fumarate [Perforomist] 20 mcg INHALATION RT-BID@0800,1700 01/15/17 Budesonide [Pulmicort] 0.5 mg INHALATION RT-BID 06/18/17 07/14/17 Escitalopram [Lexapro] 20 mg PO DAILY 06/18/17 07/14/17 HYDROcodone/APAP 7.5-325MG [[place] 1 tab PO Q6HR PRN 06/18/17 07/14/17 7.5-325] Ipratropium-Albuterol Nebulize 3 ml INHALATION RT-BID PRN 06/18/17 07/14/17 [Duoneb 0.5 mg-3 mg/3 ml Soln] Previous Rx's Medication Instructions Recorded LORazepam [Ativan] 0.5 mg PO Q8H PRN #20 tab 12/29/16 Potassium Chloride [K-Tab ER] 20 meq PO DAILY #1 tablet.er 01/22/17 Furosemide [Lasix] 80 mg PO BID@0900,1600 #60 tab 06/24/17 Allergies Allergy/AdvReac Type Severity Reaction Status Date / Time ciprofloxacin HCl Allergy Severe Anaphylaxis Verified 07/09/17 13:56 [From Cipro] budesonide [From Symbicort] AdvReac Rapid Verified 07/09/17 13:56 Heart Rate formoterol fumarate AdvReac Rapid Verified 07/09/17 13:56 [From Symbicort] Heart Rate Review of Systems ROS Statement: Those systems with pertinent positive or pertinent negative responses have been documented in the HPI. ROS Other: All systems not noted in ROS Statement are negative. Past Medical History Past Medical History: Atrial Flutter, Coronary Artery Disease (CAD), Heart Failure, COPD, GERD/Reflux, Hyperlipidemia, Hypertension, Myocardial Infarction (AR), Osteoarthritis (OA), Syncope, Thyroid Disorder Additional Past Medical History / Comment(s): COPD and the patient is on home O2 at 3 L nasal cannula , congestion heart failure history of atrial fibrillation/flutter/atrial tachycardia with previous cardiac ablation, fibromyalgia, hyperlipidemia, hypertension, colonic polyps, previous coronary artery disease and reported history of myocardial infarction, hypothyroidism, degenerative arthritis, "non ischemiccardio myopathy", and severe peripheral vascular disease. Last Myocardial Infarction Date:: 2013 History of Any Multi-Drug Resistant Organisms: None Reported Past Surgical History: Bowel Resection, Cardiac Ablation, Section, Heart Catheterization, Tubal Ligation Additional Past Surgical History / Comment(s): Bowel resection, cardiac ablation for atrial flutter, , cardiac catheterization, tubal ligation , stent left leg Past Anesthesia/Blood Transfusion Reactions: Motion Sickness Additional Past Anesthesia/Blood Transfusion Reaction / Comment(s): CLAUSTROPHOBIA Past Psychological History: Anxiety, Depression Smoking Status: Former smoker Past Alcohol Use History: None Reported Past Drug Use History: None Reported - Past Family History Mother Family Medical History: Cancer Father Family Medical History: Coronary Artery Disease (CAD) General Exam Limitations: no limitations General appearance: alert, in no apparent distress, anxious Head exam: Present: atraumatic, normocephalic, normal inspection Eye exam: Present: normal appearance, PERRL, EOMI. Absent: scleral icterus, conjunctival injection, periorbital swelling ENT exam: Present: normal exam, mucous membranes moist Neck exam: Present: normal inspection. Absent: tenderness, meningismus, lymphadenopathy Respiratory exam: Present: normal lung sounds bilaterally. Absent: respiratory distress, wheezes, rales, rhonchi, stridor Cardiovascular Exam: Present: tachycardia, irregular rhythm, normal heart sounds. Absent: systolic murmur, diastolic murmur, rubs, gallop, clicks GI/Abdominal exam: Present: soft, normal bowel sounds. Absent: distended, tenderness, guarding, rebound, rigid Extremities exam: Present: normal inspection, full ROM, normal capillary refill. Absent: tenderness, pedal edema, joint swelling, calf tenderness Back exam: Present: normal inspection Neurological exam: Present: alert, oriented X3, CN II-XII intact Psychiatric exam: Present: normal affect, normal mood Skin exam: Present: warm, dry, intact, normal color. Absent: rash Course Vital Signs 07/14/17 07/14/17 07/14/17 18:51 19:38 20:27 Temperature 97.6 F 98.0 F Pulse Rate 126 H 68 78 Respiratory 18 19 16 Rate Blood Pressure 142/68 142/68 119/59 O2 Sat by Pulse 99 100 97 Oximetry 07/14/17 20:57 Temperature Pulse Rate Respiratory Rate Blood Pressure O2 Sat by Pulse 98 Oximetry - Reevaluation(s) Reevaluation #1: 07/14/17 21:20 Patient with mild improvement after first initial breathing treatment, good heart rate control EKG Findings - EKG Comments: EKG Findings:: EKG shows atrial fibrillation with RVR rate 134, QRS 86, QTC 594 Medical Decision Making - Medical Decision Making 61 female with COPD exacerbation, A. fib with RVR, I think regulation. Patient mainly coming in for epistaxis that she is unable take her oxygen at home, severe we will oxygen prior to arrival. Patient will be admitted for monitoring of bleeding, treatment of A. fib with RVR and breathing treatments - Lab Data Result diagrams: 07/14/17 19:30 07/14/17 19:30 Lab Results 07/14/17 07/14/17 07/14/17 Range/Units 19:30 19:30 19:30 WBC 4.9 (3.8-10.6) k/uL RBC 3.48 L (3.80-5.40) m/uL Hgb 11.5 (11.4-16.0) gm/dL Hct 37.5 (34.0-46.0) % MCV 107.9 H (80.0-100.0) fL MCH 33.1 (25.0-35.0) pg MCHC 30.7 L (31.0-37.0) g/dL RDW 18.5 H (11.5-15.5) % Plt Count 135 L (150-450) k/uL Neutrophils % (Manual) 65 % Band Neutrophils % 10 % Lymphocytes % (Manual) 17 % Monocytes % (Manual) 8 % Eosinophils % (Manual) 1 % Metamyelocytes % 1 % Neutrophils # (Manual) 3.60 (1.3-7.7) k/uL Lymphocytes # (Manual) 0.83 L (1.0-4.8) k/uL Monocytes # (Manual) 0.39 (0-1.0) k/uL Eosinophils # (Manual) 0.05 (0-0.7) k/uL Metamyelocytes # (Man) 0.05 H (0) k/uL Nucleated RBCs 1 H (0-0) /100 WBC Manual Slide Review Performed Polychromasia Present Hypochromasia Moderate Anisocytosis Slight Anisocytosis (manual) Present Macrocytosis Marked Stomatocytes Present PT (9.0-12.0) sec INR (<1.2) APTT (22.0-30.0) sec Sodium 138 (137-145) mmol/L Potassium 3.9 (3.5-5.1) mmol/L Chloride 90 L (98-107) mmol/L Carbon Dioxide 41 H* (22-30) mmol/L Anion Gap 7 mmol/L BUN 35 H (7-17) mg/dL Creatinine 1.30 H (0.52-1.04) mg/dL Est GFR (MDRD) Af Amer 50 (>60 ml/min/1.73 sqM) Est GFR (MDRD) Non-Af 42 (>60 ml/min/1.73 sqM) Glucose 133 H (74-99) mg/dL Calcium 8.6 (8.4-10.2) mg/dL Phosphorus 4.5 (2.5-4.5) mg/dL Magnesium 1.4 L (1.6-2.3) mg/dL Total Bilirubin 0.9 (0.2-1.3) mg/dL AST 38 H (14-36) U/L ALT 46 (9-52) U/L Alkaline Phosphatase 67 (38-126) U/L Total Creatine Kinase 45 (30-135) U/L CK-MB (CK-2) 2.3 (0.0-2.4) ng/mL CK-MB (CK-2) Rel Index 5.1 Troponin I 0.032 (0.000-0.034) ng/mL Total Protein 5.8 L (6.3-8.2) g/dL Albumin 3.7 (3.5-5.0) g/dL 07/14/17 Range/Units 19:30 WBC (3.8-10.6) k/uL RBC (3.80-5.40) m/uL Hgb (11.4-16.0) gm/dL Hct (34.0-46.0) % MCV (80.0-100.0) fL MCH (25.0-35.0) pg MCHC (31.0-37.0) g/dL RDW (11.5-15.5) % Plt Count (150-450) k/uL Neutrophils % (Manual) % Band Neutrophils % % Lymphocytes % (Manual) % Monocytes % (Manual) % Eosinophils % (Manual) % Metamyelocytes % % Neutrophils # (Manual) (1.3-7.7) k/uL Lymphocytes # (Manual) (1.0-4.8) k/uL Monocytes # (Manual) (0-1.0) k/uL Eosinophils # (Manual) (0-0.7) k/uL Metamyelocytes # (Man) (0) k/uL Nucleated RBCs (0-0) /100 WBC Manual Slide Review Polychromasia Hypochromasia Anisocytosis Anisocytosis (manual) Macrocytosis Stomatocytes PT 13.1 H (9.0-12.0) sec INR 1.3 H (<1.2) APTT 24.3 (22.0-30.0) sec Sodium (137-145) mmol/L Potassium (3.5-5.1) mmol/L Chloride (98-107) mmol/L Carbon Dioxide (22-30) mmol/L Anion Gap mmol/L BUN (7-17) mg/dL Creatinine (0.52-1.04) mg/dL Est GFR (MDRD) Af Amer (>60 ml/min/1.73 sqM) Est GFR (MDRD) Non-Af (>60 ml/min/1.73 sqM) Glucose (74-99) mg/dL Calcium (8.4-10.2) mg/dL Phosphorus (2.5-4.5) mg/dL Magnesium (1.6-2.3) mg/dL Total Bilirubin (0.2-1.3) mg/dL AST (14-36) U/L ALT (9-52) U/L Alkaline Phosphatase (38-126) U/L Total Creatine Kinase (30-135) U/L CK-MB (CK-2) (0.0-2.4) ng/mL CK-MB (CK-2) Rel Index Troponin I (0.000-0.034) ng/mL Total Protein (6.3-8.2) g/dL Albumin (3.5-5.0) g/dL - Radiology Data Radiology results: report reviewed (Chest x-ray is negative), image reviewed Critical Care Time Critical Care Time: Yes Total Critical Care Time: 31 Disposition Clinical Impression: Atrial fibrillation with RVR, Acute exacerbation of COPD with asthma Disposition: ADMITTED IP TO THIS HOSP Condition: Fair Referrals: George Lloyd DO [Primary Care Provider] - 1-2 days
[2017-07-14 20:30] LABS: Creatine Kinase MB 2.3 ng/mL (0.0-2.4); Troponin I 0.032 ng/mL (0.000-0.034)
[2017-07-14 20:31] LABS: Add Differential Manual Differential
[2017-07-14 20:39] LABS: Band Neutrophils % 10 %; Manual Review Performed; Metamyelocytes % 1 %; Nucleated Red Blood Cells 1 /100 WBC (0-0); Polychromasia Present; Total Cells Counted 200
[2017-07-14 20:40] LABS: Stomatocytes Present
[2017-07-14] MEDS ORDERED: methylPREDNISolone SOD SUCCI 125 MG/2 ML VIAL IV STA (21:16)
--- NOTE | 2017-07-14 21:26 | XR ---
EXAMINATION TYPE: XR chest 2V DATE OF EXAM: 07/14/2017 COMPARISON: 07/09/2017 HISTORY: Epistaxes and shortness of breath TECHNIQUE: Frontal and lateral views of the chest are obtained. FINDINGS: Small bilateral pleural effusions are present. Marked cardiomegaly is again redemonstrated . No pulmonary vascular congestion or interstitial edema is seen. Mild degenerative changes of the th oracic spine are noted. Osseous structures appear intact. IMPRESSION: Small bilateral pleural effusions and cardiomegaly with no discrete pulmonary vascular c ongestion or interstitial pulmonary edema.
[2017-07-14 22:20] VITALS: BMI 28.4
[2017-07-14] MEDS: SODIUM CHLORIDE 0.9% 1,000 ML IV SCH (22:22)
[2017-07-14] MEDS ORDERED: Magnesium Replacement Protocol 1 EACH MISC MISCELLANE PRN (22:38)
[2017-07-14] MEDS ORDERED: MELATONIN 5 MG TABLET PO PRN (22:49)
[2017-07-14] MEDS: MAGNESIUM SULFATE-D5W PMX 1 GM in DEXTROSE/WATER 1 100ML.BAG IVPB SCH (23:37)
[2017-07-14] MEDS: LORazepam 0.5 MG TAB PO PRN (23:44)
[2017-07-15] MEDS: MAGNESIUM SULFATE-D5W PMX 1 GM in DEXTROSE/WATER 1 100ML.BAG IVPB SCH ×2 (01:52→02:56)
[2017-07-15] MEDS: LEVOTHYROXINE 125 MCG TAB PO SCH (05:45)
[2017-07-15] MEDS: methylPREDNISolone SOD SUCCI 125 MG/2 ML VIAL IV SCH ×5 (05:51→23:10)
[2017-07-15 06:53] LABS: Anisocytosis Slight; CH 31.9; CHCM 29.1; HCT 38.7 % (34.0-46.0); HGB 11.8 gm/dL (11.4-16.0); Hypochromasia Marked; MCH 33.6 pg (25.0-35.0); MCHC 30.5 g/dL (31.0-37.0); MCV 110.3 fL (80.0-100.0); Macrocytosis Marked; Mean Platelet Volume 8.1; RBC 3.51 m/uL (3.80-5.40); RDW 17.6 % (11.5-15.5); WBC 5.6 k/uL (3.8-10.6); WBC (Perox) 5.95
[2017-07-15 07:00] LABS: Blood Urea Nitrogen 35 mg/dL (7-17); Calcium 8.7 mg/dL (8.4-10.2); Chloride 91 mmol/L (98-107); Glucose 169 mg/dL (74-99); Non-African American GFR(MDRD) 56 (>60 ml/min/1.73 sqM); Potassium 4.2 mmol/L (3.5-5.1); Sodium 139 mmol/L (137-145)
[2017-07-15 07:07] LABS: Anion Gap 9 mmol/L
[2017-07-15 07:14] LABS: Add Differential Manual Differential
[2017-07-15 07:16] LABS: Manual Review Performed; Nucleated Red Blood Cells 0 /100 WBC (0-0); Total Cells Counted 100
[2017-07-15 07:17] LABS: Basophilic Stippling Present; Polychromasia Present
[2017-07-15] MEDS ORDERED: FORMOTEROL FUMARATE 20 MCG/2 ML NEBU INHALATION SCH (08:00)
[2017-07-15] MEDS: IPRATROPIUM-ALBUTEROL 3 ML NEB INHALATION SCH ×4 (08:22→20:28)
[2017-07-15] MEDS: FORMOTEROL FUMARATE 20 MCG/2 ML NEBU INHALATION SCH ×2 (08:23→20:28)
[2017-07-15] MEDS: METOPROLOL TARTRATE 50 MG TAB PO SCH ×3 (09:02→16:35)
[2017-07-15] MEDS: FERROUS SULFATE 325 MG TAB PO SCH ×2 (09:02→20:50)
[2017-07-15] MEDS: ESCITALOPRAM 20 MG TAB PO SCH (09:02)
[2017-07-15] MEDS: FUROSEMIDE 80 MG TAB PO SCH ×2 (09:02→16:35)
[2017-07-15] MEDS: POTASSIUM CHLORIDE ER 20 MEQ TAB.ER PO SCH (09:02)
[2017-07-15] MEDS: FAMOTIDINE 20 MG TAB PO SCH (09:02)
[2017-07-15 10:53] LABS: Hemoglobin A1C 5.8 % (4.2-6.1)
--- NOTE | 2017-07-15 11:00 | P.CRDCN ---
History of Present Illness Consult date: 07/15/17 Chief complaint: Shortness of breath History of present illness: This is a pleasant 61-year-old female patient with a past medical history significant for nonischemic cardiomyopathy, chronic atrial fibrillation , hypertension, COPD, as well as multiple comorbid conditions just was discharged from the hospital a few days ago after she was admitted with CHF secondary to systolic dysfunction as well as COPD exacerbation. The patient went home yesterday only for 4 hours when she presented back to the emergency room complaining of nose bleed. She took her oxygen off because of the nosebleed and she developed an acute respiratory failure as well as A. fib with RVR. The patient now is feeling better. She denies having any chest pain or discomfort. She is not in acute respiratory distress. She has been in A. fib with controlled heart rate. The patient was receiving dual antiplatelet therapy as well as anticoagulation with Eliquis. I am going to DC the Plavix and continue the aspirin as well as Eliquis. Past Medical History Past Medical History: Atrial Flutter, Coronary Artery Disease (CAD), Heart Failure, COPD, GERD/Reflux, Hyperlipidemia, Hypertension, Myocardial Infarction (CT), Osteoarthritis (OA), Syncope, Thyroid Disorder Additional Past Medical History / Comment(s): COPD and the patient is on home O2 at 3 L nasal cannula , congestion heart failure history of atrial fibrillation/flutter/atrial tachycardia with previous cardiac ablation, fibromyalgia, hyperlipidemia, hypertension, colonic polyps, previous coronary artery disease and reported history of myocardial infarction, hypothyroidism, degenerative arthritis, "non ischemiccardio myopathy", and severe peripheral vascular disease. Last Myocardial Infarction Date:: 2013 History of Any Multi-Drug Resistant Organisms: None Reported Past Surgical History: Bowel Resection, Cardiac Ablation, Section, Heart Catheterization, Tubal Ligation Additional Past Surgical History / Comment(s): Bowel resection, cardiac ablation for atrial flutter, , cardiac catheterization, tubal ligation , stent left leg Past Anesthesia/Blood Transfusion Reactions: Motion Sickness Additional Past Anesthesia/Blood Transfusion Reaction / Comment(s): CLAUSTROPHOBIA Past Psychological History: Anxiety, Depression Additional Psychological History / Comment(s): PT LIVES ALONE IN [place] THAT HAS 4 STEPS TO ENTER. PT IS INDEPENDANT HAS WALKER TO USE WHEN NEEDED, HOME 02, NEBULIZER, BSC, shower chair. 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 HAS 1 INDOOR CAT.received [facility] nurse Smoking Status: Former smoker Past Alcohol Use History: None Reported Additional Past Alcohol Use History / Comment(s): SMOKED 40 YEARS, 1 1/2-2 PPD, quit -2016 Past Drug Use History: None Reported - Past Family History Mother Family Medical History: Cancer Father Family Medical History: Coronary Artery Disease (CAD) Medications and Allergies Home Medications Medication Instructions Recorded Confirmed Type Levothyroxine Sodium [Synthroid] 125 mcg PO DAILY@0600 05/14/15 07/14/17 History Metoprolol Tartrate [Lopressor] 50 mg PO TID@0800,1200,1700 08/02/15 07/14/17 History Levalbuterol Tartrate [Xopenex Hfa 2 puff INHALATION RT-Q6H PRN 01/21/16 History Inhaler] Aspirin EC [Ecotrin Low Dose] 81 mg PO HS@209912/14/16 07/14/17 History Famotidine [Pepcid] 20 mg PO DAILY@0800 12/14/16 07/14/17 History Melatonin 5 mg PO HS PRN 12/14/16 07/14/17 History LORazepam [Ativan] 0.5 mg PO Q8H PRN #20 tab 12/29/16 07/14/17 Rx Apixaban [Eliquis] 5 mg PO BID@0800,2100 01/15/17 07/14/17 History Atorvastatin [Lipitor] 80 mg PO HS@209901/15/17 07/14/17 History Clopidogrel [Plavix] 75 mg PO DAILY@0800 01/15/17 07/14/17 History Ferrous Sulfate [Iron (65 MG 325 mg PO BID@0800,2100 01/15/17 07/14/17 History Elemental)] Formoterol Fumarate [Perforomist] 20 mcg INHALATION RT-BID@0800,1700 01/15/17 History Potassium Chloride [K-Tab ER] 20 meq PO DAILY #1 tablet.er 01/22/17 07/14/17 Rx Budesonide [Pulmicort] 0.5 mg INHALATION RT-BID 06/18/17 07/14/17 History Escitalopram [Lexapro] 20 mg PO DAILY 06/18/17 07/14/17 History HYDROcodone/APAP 7.5-325MG [[place] 1 tab PO Q6HR PRN 06/18/17 07/14/17 History 7.5-325] Ipratropium-Albuterol Nebulize 3 ml INHALATION RT-BID PRN 06/18/17 07/14/17 History [Duoneb 0.5 mg-3 mg/3 ml Soln] Furosemide [Lasix] 80 mg PO BID@0900,1600 #60 tab 06/24/17 07/14/17 Rx Allergies Allergy/AdvReac Type Severity Reaction Status Date / Time ciprofloxacin HCl Allergy Severe Anaphylaxis Verified 07/09/17 13:56 [From Cipro] budesonide [From Symbicort] AdvReac Rapid Verified 07/09/17 13:56 Heart Rate formoterol fumarate AdvReac Rapid Verified 07/09/17 13:56 [From Symbicort] Heart Rate Physical Exam Vitals: Vital Signs Temp Pulse Pulse Resp BP BP Pulse Ox 07/15/17 08:57 97 F L 76 16 100/56 99 07/15/17 08:55 16 07/15/17 08:46 80 07/15/17 08:36 76 07/15/17 08:35 76 07/15/17 08:25 76 98 07/15/17 03:08 96.9 F L 89 18 113/65 99 07/14/17 23:52 96.5 F L 80 18 121/73 100 07/14/17 21:33 71 18 123/60 97 07/14/17 20:57 98 07/14/17 20:27 98.0 F 78 16 119/59 97 07/14/17 19:38 68 19 142/68 100 07/14/17 18:51 97.6 F 126 H 18 142/68 99 Intake and Output 07/14/17 07/15/17 07/15/17 22:59 06:59 14:59 Intake Total 25 500 Output Total 400 Balance 25 100 Intake: IV 25 500 Diltiazem 125 mg In 5 40 Sodium Chloride 0.9% 100 ml @ 5 MG/HR 5 mls/hr IV .Q24H ONE Rx#:[id number] Magnesium Sulfate-D5w Pmx 300 1 gm In Dextrose/Water 1 100ml.bag @ 100 mls/hr IVPB Q1H YOSELIN Rx#: [id number] Sodium Chloride 0.9% 1, 20 160 000 ml @ 20 mls/hr IV . Q24H [facility] Rx#:[id number] Output: Urine 400 Other: Voiding Method Bedside Commode Bedside Commode Weight 75.2 kg 77.4 kg - Constitutional General appearance: no acute distress - Respiratory Respiratory: bilateral: wheezing - Cardiovascular Rhythm: irregularly irregular Heart sounds: normal: S1, S2 Results 07/15/17 06:02 07/15/17 06:02 Cardiac Enzymes 07/14/17 07/14/17 Range/Units 19:30 19:30 AST 38 H (14-36) U/L CK-MB (CK-2) 2.3 (0.0-2.4) ng/mL Troponin I 0.032 (0.000-0.034) ng/mL Coagulation 07/14/17 Range/Units 19:30 PT 13.1 H (9.0-12.0) sec APTT 24.3 (22.0-30.0) sec CBC 07/14/17 07/15/17 Range/Units 19:30 06:02 WBC 4.9 5.6 (3.8-10.6) k/uL RBC 3.48 L 3.51 L (3.80-5.40) m/uL Hgb 11.5 11.8 (11.4-16.0) gm/dL Hct 37.5 38.7 (34.0-46.0) % Plt Count 135 L 145 L (150-450) k/uL Comprehensive Metabolic Panel 07/14/17 07/15/17 Range/Units 19:30 06:02 Sodium 138 139 (137-145) mmol/L Potassium 3.9 4.2 (3.5-5.1) mmol/L Chloride 90 L 91 L (98-107) mmol/L Carbon Dioxide 41 H* 39 H (22-30) mmol/L BUN 35 H 35 H (7-17) mg/dL Creatinine 1.30 H 1.00 (0.52-1.04) mg/dL Glucose 133 H 169 H (74-99) mg/dL Calcium 8.6 8.7 (8.4-10.2) mg/dL AST 38 H (14-36) U/L ALT 46 (9-52) U/L Alkaline Phosphatase 67 (38-126) U/L Total Protein 5.8 L (6.3-8.2) g/dL Albumin 3.7 (3.5-5.0) g/dL Current Medications Generic Name Dose Route Start Last Admin Trade Name Freq PRN Reason Stop Dose Admin Hydrocodone Bitart/Acetaminophen 1 each 07/14/17 22:49 [place] 7.5-325 PO Q6HR PRN Pain Albuterol Sulfate 2.5 mg 07/14/17 22:49 Ventolin Nebulized INHALATION RT-Q6H PRN Shortness Of Breath Albuterol/Ipratropium 3 ml 07/15/17 08:00 07/15/17 08:22 Duoneb 0.5 Mg-3 Mg/3 Ml Soln INHALATION 3 ml RT-QID YOSELIN Administration Atorvastatin Calcium 80 mg 07/15/17 21:00 Lipitor PO HS@2100 [facility] Escitalopram Oxalate 20 mg 07/15/17 09:00 07/15/17 09:02 Lexapro PO 20 mg DAILY YOSELIN Administration Famotidine 20 mg 07/15/17 08:00 07/15/17 09:02 Pepcid PO 20 mg DAILY@0800 YOSELIN Administration Ferrous Sulfate 325 mg 07/15/17 08:00 07/15/17 09:02 Feosol PO 325 mg BID@0800,2100 [facility] Administration Formoterol Fumarate 20 mcg 07/15/17 08:00 07/15/17 08:23 Perforomist INHALATION 20 mcg RT-BID YOSELIN Administration Furosemide 80 mg 07/15/17 09:00 07/15/17 09:02 Lasix PO 80 mg BID@0900,1600 [facility] Administration Diltiazem HCl 125 mg/ Sodium 125 mls @ 5 mls/hr 07/14/17 19:34 07/14/17 20:05 Chloride IV 07/15/17 19:33 5 mg/hr .Q24H ONE 5 mls/hr 5 MG/HR Administration Sodium Chloride 1,000 mls @ 20 mls/hr 07/14/17 21:30 07/14/17 22:22 Saline 0.9% IV 20 mls/hr .Q24H YOSELIN Administration Insulin Human Lispro 0 unit 07/15/17 12:30 Humalog SQ ACHS [facility] Protocol Levothyroxine Sodium 125 mcg 07/15/17 06:00 07/15/17 05:45 Synthroid PO 125 mcg DAILY@0600 YOSELIN Administration Lorazepam 0.5 mg 07/14/17 22:49 07/14/17 23:44 Ativan PO 0.5 mg Q8H PRN Administration Anxiety Melatonin 5 mg 07/14/17 22:49 07/14/17 23:44 Melatonin PO 5 mg HS PRN Administration Insomnia Methylprednisolone Sodium Succinate 60 mg 07/15/17 06:00 07/15/17 05:51 Solu-Medrol IV 60 mg Q6HR YOSELIN Administration Metoprolol Tartrate 50 mg 07/15/17 08:00 07/15/17 09:02 Lopressor PO 50 mg TID@0800,1200,1700 YOSELIN Administration Miscellaneous Information 1 each 07/14/17 22:38 Magnesium Per Protocol MISCELLANE DAILY PRN Per Protocol Protocol Potassium Chloride 20 meq 07/15/17 09:00 07/15/17 09:02 K-Dur 20 PO 20 meq DAILY YOSELIN Administration Intake and Output 07/14/17 07/15/17 07/15/17 22:59 06:59 14:59 Intake Total 25 500 Output Total 400 Balance 25 100 Intake: IV 25 500 Diltiazem 125 mg In 5 40 Sodium Chloride 0.9% 100 ml @ 5 MG/HR 5 mls/hr IV .Q24H ONE Rx#:[id number] Magnesium Sulfate-D5w Pmx 300 1 gm In Dextrose/Water 1 100ml.bag @ 100 mls/hr IVPB Q1H YOSELIN Rx#: [id number] Sodium Chloride 0.9% 1, 20 160 000 ml @ 20 mls/hr IV . Q24H [facility] Rx#:[id number] Output: Urine 400 Other: Voiding Method Bedside Commode Bedside Commode Weight 75.2 kg 77.4 kg 07/15/17 06:02 07/15/17 06:02 Assessment and Plan Plan: This is a pleasant 62-year-old female patient with chronic respiratory failure, chronic systolic heart failure, chronic atrial fibrillation , as well as multiple comorbid conditions who was presented to the hospital with nosebleed and she was on triple therapy. I will DC the Plavix and continue the aspirin as well as anticoagulation with Eliquis. The patient is not in any acute respiratory failure, nor overt heart failure. Beside that she is in A. fib with controlled heart rate. We'll continue following up with her.
[2017-07-15] MEDS ORDERED: ASPIRIN 81 MG PO SCH (11:12)
[2017-07-15 11:46] LABS: Glucose,Whole Blood 244 mg/dL (75-99)
[2017-07-15] MEDS: APIXABAN 5 MG TAB PO SCH ×2 (12:29→20:50)
[2017-07-15] MEDS: INSULIN LISPRO (humaLOG) 300 UNIT/3 ML VIAL SQ SCH ×3 (12:29→20:50)
[2017-07-15] MEDS: ALBUTEROL NEBULIZED 2.5 MG/3 ML INHALATION PRN (13:50)
[2017-07-15] MEDS: LORazepam 0.5 MG TAB PO PRN ×2 (15:26→23:11)
[2017-07-15] MEDS: HYDROcodone/APAP 7.5-325MG 1 EACH TAB PO PRN (16:35)
[2017-07-15 16:44] LABS: Glucose,Whole Blood 141 mg/dL (75-99)
[2017-07-15 18:43] LABS: Glucose,Whole Blood 288 mg/dL (75-99)
[2017-07-15 20:50] LABS: Glucose,Whole Blood 241 mg/dL (75-99)
[2017-07-15] MEDS: ATORVASTATIN 80 MG TAB PO SCH (20:50)
[2017-07-15] MEDS: SODIUM CHLORIDE 0.9% 1,000 ML IV SCH (21:12)
--- NOTE | 2017-07-15 23:17 | P.HPIM ---
History of Present Illness H&P Date: 07/15/17 Chief Complaint: Nosebleed This is a 61-year-old female with a known history of nonischemic cardiomyopathy, chronic persistent atrial fibrillation, hypertension, PAD, prior atrial flutter ablation, nicotine dependence, moderate to severe COPD with home O2 use, hypothyroidism, she was discharged from the hospital yesterday , Readmitted to the hospital with symptoms of nosebleed/epistaxis. Patient says that after going home she developed nosebleed within 4 hours of stay at home and patient could not wear her oxygen. Patient developed acute respiratory distress and also developed A. fib with RVR and presented to ER. Patient currently denied any active bleeding. Patient was on Cardizem drip. Currently rate is controlled with by mouth medications. Patient was seen by cardiology. Patient is currently on triple anticoagulants including aspirin Plavix and eliquis. Patient was seen by cardiology and recommended to DC Plavix. Patient was started on humidified oxygen. . Review of Systems CONSTITUTIONAL: No fever, no malaise, no fatigue. HEENT: No recent visual problems or hearing problems. Denied any sore throat. Nosebleed CARDIOVASCULAR: No chest pain, orthopnea, PND, no palpitations, no syncope. PULMONARY: , no hemoptysis. GASTROINTESTINAL: No diarrhea, no nausea, no vomiting, no abdominal pain. Normoactive bowel sounds. NEUROLOGICAL: No headaches, no weakness, no numbness. HEMATOLOGICAL: Denies any bleeding or petechiae. GENITOURINARY: Denies any burning micturition, frequency, or urgency. MUSCULOSKELETAL/RHEUMATOLOGICAL: Denies any joint pain, swelling, or any muscle pain. ENDOCRINE: Denies any polyuria or polydipsia. The rest of the 14-point review of systems is negative. Past Medical History Past Medical History: Atrial Flutter, Coronary Artery Disease (CAD), Heart Failure, COPD, GERD/Reflux, Hyperlipidemia, Hypertension, Myocardial Infarction ([place]), Osteoarthritis (OA), Syncope, Thyroid Disorder Additional Past Medical History / Comment(s): COPD and the patient is on home O2 at 3 L nasal cannula , congestion heart failure history of atrial fibrillation/flutter/atrial tachycardia with previous cardiac ablation, fibromyalgia, hyperlipidemia, hypertension, colonic polyps, previous coronary artery disease and reported history of myocardial infarction, hypothyroidism, degenerative arthritis, "non ischemiccardio myopathy", and severe peripheral vascular disease. Last Myocardial Infarction Date:: 2013 History of Any Multi-Drug Resistant Organisms: None Reported Past Surgical History: Bowel Resection, Cardiac Ablation, Section, Heart Catheterization, Tubal Ligation Additional Past Surgical History / Comment(s): Bowel resection, cardiac ablation for atrial flutter, , cardiac catheterization, tubal ligation , stent left leg Past Anesthesia/Blood Transfusion Reactions: Motion Sickness Additional Past Anesthesia/Blood Transfusion Reaction / Comment(s): CLAUSTROPHOBIA Past Psychological History: Anxiety, Depression Additional Psychological History / Comment(s): PT LIVES ALONE IN APT THAT HAS 4 STEPS TO ENTER. PT IS INDEPENDANT HAS WALKER TO USE WHEN NEEDED, HOME 02, NEBULIZER, BSC, shower chair. 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 Smoking Status: Former smoker Past Alcohol Use History: None Reported Additional Past Alcohol Use History / Comment(s): SMOKED 40 YEARS, 1 1/2-2 PPD, quit Past Drug Use History: None Reported - Past Family History Mother Family Medical History: Cancer Father Family Medical History: Coronary Artery Disease (CAD) Medications and Allergies Home Medications Medication Instructions Recorded Confirmed Type Levothyroxine Sodium [Synthroid] 125 mcg PO DAILY@0600 05/14/15 07/14/17 History Metoprolol Tartrate [Lopressor] 50 mg PO TID@0800,1200,1700 08/02/15 07/14/17 History Levalbuterol Tartrate [Xopenex Hfa 2 puff INHALATION RT-Q6H PRN 01/21/16 History Inhaler] Aspirin EC [Ecotrin Low Dose] 81 mg PO HS@209912/14/16 07/14/17 History Famotidine [Pepcid] 20 mg PO DAILY@0800 12/14/16 07/14/17 History Melatonin 5 mg PO HS PRN 12/14/16 07/14/17 History LORazepam [Ativan] 0.5 mg PO Q8H PRN #20 tab 12/29/16 07/14/17 Rx Apixaban [Eliquis] 5 mg PO BID@0800,2100 01/15/17 07/14/17 History Atorvastatin [Lipitor] 80 mg PO HS@209901/15/17 07/14/17 History Clopidogrel [Plavix] 75 mg PO DAILY@0800 01/15/17 07/14/17 History Ferrous Sulfate [Iron (65 MG 325 mg PO BID@0800,2100 01/15/17 07/14/17 History Elemental)] Formoterol Fumarate [Perforomist] 20 mcg INHALATION RT-BID@0800,1700 01/15/17 History Potassium Chloride [K-Tab ER] 20 meq PO DAILY #1 tablet.er 01/22/17 07/14/17 Rx Budesonide [Pulmicort] 0.5 mg INHALATION RT-BID 06/18/17 07/14/17 History Escitalopram [Lexapro] 20 mg PO DAILY 06/18/17 07/14/17 History HYDROcodone/APAP 7.5-325MG [Casa 1 tab PO Q6HR PRN 06/18/17 07/14/17 History 7.5-325] Ipratropium-Albuterol Nebulize 3 ml INHALATION RT-BID PRN 06/18/17 07/14/17 History [Duoneb 0.5 mg-3 mg/3 ml Soln] Furosemide [Lasix] 80 mg PO BID@0900,1600 #60 tab 06/24/17 07/14/17 Rx Allergies Allergy/AdvReac Type Severity Reaction Status Date / Time ciprofloxacin HCl Allergy Severe Anaphylaxis Verified 07/09/17 13:56 [From Cipro] budesonide [From Symbicort] AdvReac Rapid Verified 07/09/17 13:56 Heart Rate formoterol fumarate AdvReac Rapid Verified 07/09/17 13:56 [From Symbicort] Heart Rate Physical Exam Vitals: Vital Signs Temp Pulse Pulse Resp BP BP Pulse Ox 07/15/17 11:43 84 07/15/17 11:34 80 07/15/17 08:57 97 F L 76 16 100/56 99 07/15/17 08:55 16 07/15/17 08:46 80 07/15/17 08:36 76 07/15/17 08:35 76 07/15/17 08:25 76 98 07/15/17 03:08 96.9 F L 89 18 113/65 99 07/14/17 23:52 96.5 F L 80 18 121/73 100 07/14/17 21:33 71 18 123/60 97 07/14/17 20:57 98 07/14/17 20:27 98.0 F 78 16 119/59 97 07/14/17 19:38 68 19 142/68 100 07/14/17 18:51 97.6 F 126 H 18 142/68 99 Intake and Output 07/14/17 07/15/17 07/15/17 22:59 06:59 14:59 Intake Total 25 500 Output Total 400 Balance 25 100 Intake: IV 25 500 Diltiazem 125 mg In 5 40 Sodium Chloride 0.9% 100 ml @ 5 MG/HR 5 mls/hr IV .Q24H [facility] Rx#:[id number] Magnesium Sulfate-D5w Pmx 300 1 gm In Dextrose/Water 1 100ml.bag @ 100 mls/hr IVPB Q1H [facility] Rx#: [id number] Sodium Chloride 0.9% 1, 20 160 000 ml @ 20 mls/hr IV . Q24H [facility] Rx#:[id number] Output: Urine 400 Other: Voiding Method Bedside Commode Bedside Commode Weight 75.2 kg 77.4 kg PHYSICAL EXAMINATION: Patient is lying in the bed comfortably, no acute distress, awake alert and oriented.. HEENT: Normocephalic. Neck is supple. Pupils reactive. Nostrils clear. Oral cavity is moist. Ears reveal no drainage. Neck reveals no JVD, carotid bruits, or thyromegaly. CHEST EXAMINATION: Trachea is central. Symmetrical expansion. Patient has bilateral diminished air entry. CARDIAC: Normal S1, S2 with no gallops. No murmurs irregularly irregular pulse ABDOMEN: Soft. Bowel sounds normal. No organomegaly. No abdominal bruits. Extremities reveal no edema. No clubbing or cyanosis Neurologically awake, alert, oriented x3 with well-coordinated movements. Skin: no rash or skin lesions Musculoskeletal: no joint swelling or deformity. Results CBC & Chem 7: 07/15/17 06:02 07/15/17 06:02 Labs: Abnormal Lab Results - Last 24 Hours (Table) 07/14/17 07/14/17 07/14/17 Range/Units 19:30 19:30 19:30 RBC 3.48 L (3.80-5.40) m/uL MCV 107.9 H (80.0-100.0) fL MCHC 30.7 L (31.0-37.0) g/dL RDW 18.5 H (11.5-15.5) % Plt Count 135 L (150-450) k/uL Lymphocytes # (Manual) 0.83 L (1.0-4.8) k/uL Metamyelocytes # (Man) 0.05 H (0) k/uL Nucleated RBCs 1 H (0-0) /100 WBC PT 13.1 H (9.0-12.0) sec INR 1.3 H (<1.2) Chloride 90 L (98-107) mmol/L Carbon Dioxide 41 H* (22-30) mmol/L BUN 35 H (7-17) mg/dL Creatinine 1.30 H (0.52-1.04) mg/dL Glucose 133 H (74-99) mg/dL POC Glucose (mg/dL) (75-99) mg/dL Magnesium 1.4 L (1.6-2.3) mg/dL AST 38 H (14-36) U/L Total Protein 5.8 L (6.3-8.2) g/dL 07/15/17 07/15/17 07/15/17 Range/Units 06:02 06:02 06:02 RBC 3.51 L (3.80-5.40) m/uL MCV 110.3 H (80.0-100.0) fL MCHC 30.5 L (31.0-37.0) g/dL RDW 17.6 H (11.5-15.5) % Plt Count 145 L (150-450) k/uL Lymphocytes # (Manual) 0.73 L (1.0-4.8) k/uL Metamyelocytes # (Man) (0) k/uL Nucleated RBCs (0-0) /100 WBC PT (9.0-12.0) sec INR (<1.2) Chloride 91 L (98-107) mmol/L Carbon Dioxide 39 H (22-30) mmol/L BUN 35 H (7-17) mg/dL Creatinine (0.52-1.04) mg/dL Glucose 169 H (74-99) mg/dL POC Glucose (mg/dL) (75-99) mg/dL Magnesium 2.5 H (1.6-2.3) mg/dL AST (14-36) U/L Total Protein (6.3-8.2) g/dL 07/15/17 Range/Units 11:42 RBC (3.80-5.40) m/uL MCV (80.0-100.0) fL MCHC (31.0-37.0) g/dL RDW (11.5-15.5) % Plt Count (150-450) k/uL Lymphocytes # (Manual) (1.0-4.8) k/uL Metamyelocytes # (Man) (0) k/uL Nucleated RBCs (0-0) /100 WBC PT (9.0-12.0) sec INR (<1.2) Chloride (98-107) mmol/L Carbon Dioxide (22-30) mmol/L BUN (7-17) mg/dL Creatinine (0.52-1.04) mg/dL Glucose (74-99) mg/dL POC Glucose (mg/dL) 244 H (75-99) mg/dL Magnesium (1.6-2.3) mg/dL AST (14-36) U/L Total Protein (6.3-8.2) g/dL Thrombosis Risk Factor Assmnt - Choose All That Apply Any of the Below Risk Factors Present?: Yes Each Factor Represents 1 point: Obesity (BMI >25), Serious lung disease incl. pneumonia (< 1month) Each Risk Factor Represents 2 Points: Age 61-74 years Thrombosis Risk Factor Assessment Total Risk Factor Score: 4 Thrombosis Risk Factor Assessment Level: Moderate Risk Assessment and Plan Plan: - Acute nosebleed/epistaxis. Resolved now. Patient was started on humidified oxygen. -Chronic congestive heart failure from systolic dysfunction ejection fraction 30 % to 35% under lying coronary artery disease. Likely not acute exacerbation -Atrial flutter/fibrillation, persistent, controlled rate -Chronic obstructive pulmonary disease, end-stage, in an ex-smoker. -Rest leg syndrome. -Chronic fibromyalgia. -Hypotension from volume loss. -Hyperlipidemia. -Primary osteoporosis multiple joints, bilaterally. -Chronic hypoxic respiratory failure underlying chronic obstructive pleuritic disease, uses home oxygen -Hypothyroidism. -Hyperkalemia from renal failure and patient being on and entresto, resolved Plan: Patient will be continued on humidified oxygen. Patient does have persistent atrial fibrillation. Rate is controlled. Plavix has been discontinued as per cardiology. We will continue the aspirin and eliquis and follow hemoglobin. Patient's respiratory status is stable and is at baseline. Patient does have advanced COPD. We will continue the home medications and blood sugar monitoring. Further recommendations this on the clinical course. Prognosis is guarded. Time with Patient: Greater than 30
[2017-07-16] MEDS: ALBUTEROL NEBULIZED 2.5 MG/3 ML INHALATION PRN (00:16)
--- NOTE | 2017-07-16 00:26 | CT ---
EXAM: CT Head Without Intravenous Contrast CLINICAL HISTORY: Reason: AMS TECHNIQUE: Axial computed tomography images of the head/brain without intravenous contrast. DLP is 1047.10 mGy-cm. This CT exam was performed using one or more of the following dose reduction techniques: automated exposure control, adjustment of the mA and/or kV according to patient size, and/or use of iterative reconstruction technique. COMPARISON: No relevant prior studies available. FINDINGS: Brain: Unremarkable. No hemorrhage. No significant white matter disease. No edema. Ventricles: Unremarkable. No ventriculomegaly. Bones/joints: Unremarkable. No acute fracture. Soft tissues: Calcified bilateral carotid siphons. Sinuses: Mild mucosal thickening of the bilateral ethmoid air cells is seen. Small air-fluid level seen within the right sphenoid sinus. Aerated secretions are seen within the left sphenoid sinus. Mastoid air cells: Unremarkable as visualized. No mastoid effusion. Orbits: Bilateral proptosis is suggested. IMPRESSION: 1. No evidence of acute transcortical infarct or acute intracranial hemorrhage. If clinical symptoms persist, consider short-term interval repeat CT of the head versus MRI of the brain for follow-up. 2. Bilateral proptosis is suggested. Clinical correlation recommended. 3. Mild sinus disease, as above.
[2017-07-16 00:44] LABS: Anisocytosis Slight; Basophils % (A) 0 %; CH 32.3; Eosinophils % (A) 0 %; HCT 36.5 % (34.0-46.0); HDW 2.69; HGB 11.2 gm/dL (11.4-16.0); Hypochromasia Marked; Luc # (Auto) 0.08; Luc % (Auto) 1; Lymphocytes # (A) 0.4 k/uL (1.0-4.8); Lymphocytes % (A) 6 %; MCH 33.2 pg (25.0-35.0); MCHC 30.6 g/dL (31.0-37.0); Mean Platelet Volume 7.9; Monocytes # (A) 0.3 k/uL (0-1.0); Monocytes % (A) 6 %; Neutrophils # (A) 5.1 k/uL (1.3-7.7); Neutrophils % (A) 87 %; RBC 3.36 m/uL (3.80-5.40); RDW 17.8 % (11.5-15.5); WBC 5.9 k/uL (3.8-10.6); WBC (Perox) 5.57
[2017-07-16 00:47] LABS: MCV 108.5 fL (80.0-100.0); Macrocytosis Marked
[2017-07-16 05:30] LABS: Glucose,Whole Blood 150 mg/dL (75-99)
[2017-07-16] MEDS: INSULIN LISPRO (humaLOG) 300 UNIT/3 ML VIAL SQ SCH ×4 (06:24→20:55)
[2017-07-16] MEDS: LEVOTHYROXINE 125 MCG TAB PO SCH (06:24)
[2017-07-16] MEDS: methylPREDNISolone SOD SUCCI 125 MG/2 ML VIAL IV SCH ×2 (06:25→11:52)
[2017-07-16] MEDS: FORMOTEROL FUMARATE 20 MCG/2 ML NEBU INHALATION SCH ×2 (07:03→20:32)
[2017-07-16] MEDS: IPRATROPIUM-ALBUTEROL 3 ML NEB INHALATION SCH ×4 (07:03→20:32)
[2017-07-16] MEDS: METOPROLOL TARTRATE 50 MG TAB PO SCH ×3 (07:08→16:45)
[2017-07-16 07:44] LABS: Anisocytosis Slight; CH 32.1; CHCM 29.9; HCT 34.8 % (34.0-46.0); HDW 2.73; HGB 10.7 gm/dL (11.4-16.0); Hypochromasia Marked; MCH 33.2 pg (25.0-35.0); MCHC 30.7 g/dL (31.0-37.0); Macrocytosis Marked; Mean Platelet Volume 8.2; RBC 3.22 m/uL (3.80-5.40); WBC 6.5 k/uL (3.8-10.6); WBC (Perox) 7.09
[2017-07-16 07:59] LABS: Blood Urea Nitrogen 33 mg/dL (7-17); Calcium 8.8 mg/dL (8.4-10.2); Chloride 87 mmol/L (98-107); Glucose 147 mg/dL (74-99); Magnesium 1.9 mg/dL (1.6-2.3); Non-African American GFR(MDRD) 52 (>60 ml/min/1.73 sqM); Potassium 3.9 mmol/L (3.5-5.1); Sodium 140 mmol/L (137-145)
[2017-07-16 08:08] LABS: Anion Gap 8 mmol/L
[2017-07-16 08:10] LABS: Carbon Dioxide 45 mmol/L (22-30)
[2017-07-16] MEDS: POTASSIUM CHLORIDE ER 20 MEQ TAB.ER PO SCH (08:40)
[2017-07-16] MEDS: ESCITALOPRAM 20 MG TAB PO SCH (08:40)
[2017-07-16] MEDS: FERROUS SULFATE 325 MG TAB PO SCH ×2 (08:40→19:57)
[2017-07-16] MEDS: FUROSEMIDE 80 MG TAB PO SCH ×2 (08:40→16:45)
[2017-07-16] MEDS: FAMOTIDINE 20 MG TAB PO SCH (08:42)
[2017-07-16 08:49] LABS: Add Differential Manual Differential
[2017-07-16 08:53] LABS: Nucleated Red Blood Cells 0 /100 WBC (0-0)
[2017-07-16 08:54] LABS: Band Neutrophils % 2 %; Target Cells Present; Total Cells Counted 200
--- NOTE | 2017-07-16 11:53 | P.PN ---
Subjective Principal diagnosis: Shortness of breath his is a 61-year-old female who follows regularly with Dr. Milian in the office. She has a known history of nonischemic cardiomyopathy, chronic persistent atrial fibrillation, hypertension, PAD, prior atrial flutter ablation , nicotine dependence, moderate to severe COPD with home O2 use, hypothyroidism , patient was just recently discharged home from the hospital, 4 hours later she returned to the hospital because of epistaxis. She had taken her oxygen off at home because of the nosebleed, and became quite short of breath. She did have some respiratory failure and was in atrial fibrillation with rapid ventricular response. Continues to be in A. fib, heart rate under better control. Feeling better overall, very tired. Hgb10.7, platelet count 152. BUN 33, creatinine 1.07. Objective - Vital Signs Vital signs: Vital Signs Temp 97.9 F 07/16/17 03:05 Pulse 108 H 07/16/17 11:39 Resp 16 07/16/17 08:00 BP 119/74 07/16/17 08:00 Pulse Ox 97 07/16/17 08:00 Intake & Output 07/15/17 07/16/17 07/16/17 18:59 06:59 18:59 Intake Total 237 180 180 Output Total 400 1000 Balance -163 -820 180 Weight 75.3 kg Intake: IV 180 0.9% NS @ 20 mL 180 Oral 237 180 Output: Urine 400 1000 Other: Voiding Method Bedside Commode Toilet Toilet Bedside Commode Bedside Commode # Voids 3 - Exam PHYSICAL EXAMINATION: HEENT: Head is atraumatic, normocephalic. Pupils equal, round. Neck is supple. There is no elevated jugular venous pressure. HEART EXAMINATION: S1 and S2 irregularly irregular a systolic murmur is heard. CHEST EXAMINATION: Lungs are clear with decreased air exchange throughout. ABDOMEN: Soft, nontender. Bowel sounds are heard. No organomegaly noted. EXTREMITIES: 1+ peripheral pulses with no evidence of peripheral edema and no calf tenderness noted. NEUROLOGIC patient is awake, alert and oriented -3. . - Labs CBC & Chem 7: 07/16/17 07:12 07/16/17 07:12 Labs: Abnormal Lab Results - Last 24 Hours (Table) 07/15/17 07/15/17 07/15/17 Range/Units 16:40 18:30 20:48 RBC (3.80-5.40) m/uL Hgb (11.4-16.0) gm/dL MCV (80.0-100.0) fL MCHC (31.0-37.0) g/dL RDW (11.5-15.5) % Lymphocytes # (1.0-4.8) k/uL Lymphocytes # (Manual) (1.0-4.8) k/uL Chloride (98-107) mmol/L Carbon Dioxide (22-30) mmol/L BUN (7-17) mg/dL Creatinine (0.52-1.04) mg/dL Glucose (74-99) mg/dL POC Glucose (mg/dL) 141 H 288 H 241 H (75-99) mg/dL 07/16/17 07/16/17 07/16/17 Range/Units 00:09 05:24 07:12 RBC 3.36 L 3.22 L (3.80-5.40) m/uL Hgb 11.2 L 10.7 L (11.4-16.0) gm/dL MCV 108.5 H 108.0 H (80.0-100.0) fL MCHC 30.6 L 30.7 L (31.0-37.0) g/dL RDW 17.8 H 18.0 H (11.5-15.5) % Lymphocytes # 0.4 L (1.0-4.8) k/uL Lymphocytes # (Manual) 0.39 L (1.0-4.8) k/uL Chloride (98-107) mmol/L Carbon Dioxide (22-30) mmol/L BUN (7-17) mg/dL Creatinine (0.52-1.04) mg/dL Glucose (74-99) mg/dL POC Glucose (mg/dL) 150 H (75-99) mg/dL 07/16/17 Range/Units 07:12 RBC (3.80-5.40) m/uL Hgb (11.4-16.0) gm/dL MCV (80.0-100.0) fL MCHC (31.0-37.0) g/dL RDW (11.5-15.5) % Lymphocytes # (1.0-4.8) k/uL Lymphocytes # (Manual) (1.0-4.8) k/uL Chloride 87 L (98-107) mmol/L Carbon Dioxide 45 H* (22-30) mmol/L BUN 33 H (7-17) mg/dL Creatinine 1.07 H (0.52-1.04) mg/dL Glucose 147 H (74-99) mg/dL POC Glucose (mg/dL) (75-99) mg/dL Assessment and Plan (1) Epistaxis Status: Acute (2) Respiratory failure Status: Acute (3) Chronic a-fib Status: Acute (4) COPD (chronic obstructive pulmonary disease) Status: Acute (5) Hypothyroid Status: Acute (6) NICM (nonischemic cardiomyopathy) Status: Acute (7) PAD (peripheral artery disease) Status: Acute Plan: From cardiology's perspective, patient may be able to be discharged home today. We will make her a follow-up appointment in the office post discharge DNP note has been reviewed, I agree with a documented findings and plan of care. Patient was seen and examined.
[2017-07-16] MEDS: HYDROcodone/APAP 7.5-325MG 1 EACH TAB PO PRN ×2 (11:56→19:57)
[2017-07-16 12:08] LABS: Glucose,Whole Blood 122 mg/dL (75-99)
--- NOTE | 2017-07-16 16:17 | P.PN ---
Progress Note - Text DATE OF SERVICE: 07/16/2017 PRESENTING COMPLAINT: Epistaxis HISTORY OF PRESENT ILLNESS: 61-year-old female who was discharged from the hospital on 07/14/2017, readmitted with symptoms of nosebleed epistaxis. Epistaxis occurred after she arrived home approximately 4 hours later. Unable to wear oxygen, developed acute respiratory distress in atrial fibrillation with RVR arrived via EMS. INTERVAL HISTORY: 07/16/2017: Appears lethargic, lying in the bed at a 20 angle slow to answer questions. Not short of breath, wearing her oxygen, no evidence of nose bleeding. No further epistaxis, no difficulty breathing, no obvious fluid overload/edema. Last BM 07/15/2017. Tolerating her diet eating 50% of each meal. Ambulatory to and from the bathroom with oxygen in place. Patient does use home oxygen. REVIEW OF SYSTEMS: Done for constitutional ,cardiovascular, GI, pulmonary with relevant findings as above. CURRENT MEDICATIONS Albuterol, DuoNeb, Eliquis 5 mg by mouth twice a day, aspirin 81 mg by mouth daily, Lipitor 80 mg by mouth at at bedtime. Lexapro 20 mg by mouth daily Pepcid 20 mg by mouth daily, Perforomist 20 g twice a day Synthroid, Ativan, Solu-Medrol 60 mg IV every 6 hours, Lopressor 50 mg 3 times a day PHYSICAL EXAM VITAL SIGNS: Temperature 97.9, heart rate 105, respiratory rate 16, blood pressure 118/69, oxygen saturation 91% on 3 L. GENERAL APPEARANCE: Lying in bed, lethargic, slow yet able to respond. EYES: Pupils equal. Conjunctiva normal. NECK: JVD not raised. Mass not palpable. RESPIRATORY: Respiratory effort normal. Lungs diminished to auscultation. CARDIOVASCULAR: First and second sounds normal. No edema. ABDOMEN: Soft. Liver and spleen not palpable. No tenderness. No mass palpable. PSYCHIATRY: Alert and oriented x3. Mood and affect normal. INVESTIGATIONS: Hemoglobin 10.7, sodium 140, potassium 3.9, chloride 87, current dioxide 45, BUN 33, creatinine 1.07. Accu-Cheks noted. CT of the head: No evidence of acute transcortical infarct or acute intracranial hemorrhage. ASSESSMENT: -Acute severe epistaxis from multiple anticoagulants. Plavix has been discontinued per Dr. Payton. Patient to be kept on Eliquis and aspirin -Chronic congestive heart failure from systolic dysfunction EF 30-35% from underlying coronary artery disease -Persistent atrial flutter fibrillation with uncontrolled rate on presentation now better controlled -COPD endstage in an ex-smoker -Restless leg syndrome -Chronic fibromyalgia -Hyperlipidemia -Primary osteoarthritis multiple joints bilaterally -Chronic hypoxic respiratory failure from underlying COPD on home oxygen 3 L -Hypothyroidism -Recently entresto held for hypotension. PLAN: From a cardiology standpoint patient's condition is stable and we'll continue current medication regimen and cleared for discharge. Solu-Medrol taper in progress. Patient had transportation issues, daughter called, had concerns about patient being discharged, questions that were answered/redirected to the appropriate constitution party.. Patient will remain overnight in hopes of discharging tomorrow based on patient condition. TEXTBOOK ASSOCIATE statement: Patient was seen and examined by nurse practitioner Cathie Monk and all elements of the case discussed with attending Dr. Ramos
[2017-07-16 16:34] LABS: Glucose,Whole Blood 133 mg/dL (75-99)
[2017-07-16] MEDS: methylPREDNISolone SOD SUCCI 40 MG/ML 1 ML VIAL IV SCH ×2 (16:45→23:09)
[2017-07-16 19:57] VITALS: RESP 18
[2017-07-16] MEDS: ATORVASTATIN 80 MG TAB PO SCH (19:57)
--- NOTE | 2017-07-16 20:01 | P.PN ---
Progress Note - Text Attending note. Date of service-07/16/2017 This patient was seen and examined by me . Discussed the patient with my nurse practitioner Ms. Monk. Admitted with epistaxis. Plavix was DC'd by Dr. Payton. No further episodes. Patient is at her baseline. Chronically tired. On examination: Lungs-decreased breath sounds. Laying in bed comfortable. Investigations: Hemoglobin 10.7. Telemetry-a flutter fib controlled Assessment and plan: -Acute severe epistaxis from multiple anticoagulants. Plavix has been discontinued per Dr. Payton. Patient to be kept on Eliquis and aspirin -Chronic congestive heart failure from systolic dysfunction EF 30-35% from underlying coronary artery disease -Persistent atrial flutter fibrillation with uncontrolled rate on presentation now better controlled -COPD endstage in an ex-smoker -Restless leg syndrome -Chronic fibromyalgia -Hyperlipidemia -Primary osteoarthritis multiple joints bilaterally -Chronic hypoxic respiratory failure from underlying COPD on home oxygen 3 L -Hypothyroidism -Recently entresto held for hypotension. Plan: Per cardiology patient stable for discharge. Patient requested to stay 1 more night. Care was discussed with the patient. I did inform her that the longer she stays in the hospital given that she stabled is a high chance of getting infections. She states, she doesn't have a right today. Hence will go in the morning.
[2017-07-16 20:46] LABS: Glucose,Whole Blood 170 mg/dL (75-99)
[2017-07-16] MEDS: SODIUM CHLORIDE 0.9% 1,000 ML IV SCH (22:58)
[2017-07-17 05:36] LABS: Glucose,Whole Blood 138 mg/dL (75-99)
[2017-07-17] MEDS: INSULIN LISPRO (humaLOG) 300 UNIT/3 ML VIAL SQ SCH ×2 (05:52→12:08)
[2017-07-17] MEDS: LEVOTHYROXINE 125 MCG TAB PO SCH (05:52)
[2017-07-17] MEDS: IPRATROPIUM-ALBUTEROL 3 ML NEB INHALATION SCH ×4 (05:55→15:26)
[2017-07-17] MEDS: FORMOTEROL FUMARATE 20 MCG/2 ML NEBU INHALATION SCH (05:55)
[2017-07-17 06:37] LABS: Anisocytosis Slight; CH 32.8; CHCM 30.5; HCT 36.9 % (34.0-46.0); HDW 2.76; HGB 11.3 gm/dL (11.4-16.0); Hypochromasia Moderate; MCH 33.1 pg (25.0-35.0); MCHC 30.6 g/dL (31.0-37.0); MCV 108.4 fL (80.0-100.0); Mean Platelet Volume 8.9; RDW 18.7 % (11.5-15.5)
[2017-07-17 06:38] LABS: Macrocytosis Marked
[2017-07-17 06:54] LABS: Calcium 8.9 mg/dL (8.4-10.2); Potassium 4.6 mmol/L (3.5-5.1)
[2017-07-17 07:14] LABS: Carbon Dioxide 39 mmol/L (22-30)
[2017-07-17] MEDS: FERROUS SULFATE 325 MG TAB PO SCH (08:09)
[2017-07-17] MEDS: POTASSIUM CHLORIDE ER 20 MEQ TAB.ER PO SCH (08:09)
[2017-07-17] MEDS: FUROSEMIDE 80 MG TAB PO SCH (08:09)
[2017-07-17] MEDS: ESCITALOPRAM 20 MG TAB PO SCH (08:09)
[2017-07-17] MEDS: FAMOTIDINE 20 MG TAB PO SCH (08:09)
[2017-07-17] MEDS: METOPROLOL TARTRATE 50 MG TAB PO SCH ×2 (08:09→12:09)
[2017-07-17] MEDS: methylPREDNISolone SOD SUCCI 40 MG/ML 1 ML VIAL IV SCH (08:09)
[2017-07-17 08:20] VITALS: BP 138/89; TEMP 97.6
[2017-07-17 11:44] LABS: Glucose,Whole Blood 164 mg/dL (75-99)
[2017-07-17 15:30] VITALS: PULSE 94
--- NOTE | 2017-07-17 18:05 | P.DS ---
<Cathie Monk Abhilash - Last Filed: 07/17/17 17:53> Providers Date of admission: 07/14/17 21:16 Expected date of discharge: 07/17/17 Attending physician: Iglesia Ramos Consults: 07/14/17 21:16 Consult Physician Routine Consulting Provider: Maykel Mcduffie Consult Reason/Comments: afib Do you want consulting provider notified?: Yes Primary care physician: George Lloyd [facility] Course: FINAL DIAGNOSES: -Acute severe epistaxis from multiple anticoagulants. Plavix has been discontinued per Dr. Payton. Patient to be kept on Eliquis and aspirin -Chronic congestive heart failure from systolic dysfunction EF 30-35% from underlying coronary artery disease -Persistent atrial flutter fibrillation with uncontrolled rate on presentation now better controlled -COPD endstage in an ex-smoker -Restless leg syndrome -Chronic fibromyalgia -Hyperlipidemia -Primary osteoarthritis multiple joints bilaterally -Chronic hypoxic respiratory failure from underlying COPD on home oxygen 3 L -Hypothyroidism -Recently entresto held for hypotension. HOSPTIAL COURSE: 61-year-old female who was discharged from the hospital on 07/14/2017, readmitted the same day later in the day with symptoms of nose bleed, epistaxis. Epistaxis occurred after she arrived home approximately 4 hours later. Unable to wear her oxygen, developed acute respiratory distress in atrial fibrillation with RVR arrived via EMS. Was admitted for the same. Once admitted patient had no further nose bleeding. Cardiology consulted, patient was on triple anticoagulation therapy and Plavix was discontinued with continuation of the aspirin and Eliquis. Atrial fibrillation continued however controlled rate, with the addition of no medications. Patient was also not found to be in any acute respiratory failure or over heart failure so no further medication changes were made. Cardiology cleared the patient for discharge on 07/16/2017, patient requested an additional night, was informed that staying longer in the hospital puts her at greater risk for infection, she did not have a ride at that time. Today, respiratory status remains stable and at her baseline, no further nose bleeding, medications adjusted accordingly, tolerating her diet eating between 50 and 60% of her meals, able to ambulate between the bathroom and short distances in the [place], last BM 07/16/2017. Patient is stable and at her baseline and has appropriate transportation to return home with homecare. PHYSICAL EXAM: CARDIOVASCULAR: Irregular rhythm, controlled rate, no edema RESPIRATORY: Decreased breath sounds, able to lay at a 20 angle comfortably PSYCHIATRY: Alert and oriented 3, chronically tired, mood and affect tired appearing. Patient was seen and examined by nurse practitioner Cathie Monk in all elements of the case discussed with attending Dr. Ramos DISPOSITION: Discharge home with home care. Patient Condition at Discharge: Fair Plan - Discharge Summary New Discharge Prescriptions: Continue Levothyroxine Sodium [Synthroid] 125 mcg PO DAILY@0600 Metoprolol Tartrate [Lopressor] 50 mg PO TID@0800,1200,1700 Levalbuterol Tartrate [Xopenex Hfa Inhaler] 2 puff INHALATION RT-Q6H PRN PRN Reason: Shortness Of Breath Aspirin EC [Ecotrin Low Dose] 81 mg PO HS@2100 Melatonin 5 mg PO HS PRN PRN Reason: Insomnia Famotidine [Pepcid] 20 mg PO DAILY@0800 LORazepam [Ativan] 0.5 mg PO Q8H PRN #20 tab PRN Reason: Anxiety Ferrous Sulfate [Iron (65 MG Elemental)] 325 mg PO BID@0800,2100 Apixaban [Eliquis] 5 mg PO BID@0800,2100 Atorvastatin [Lipitor] 80 mg PO HS@2100 Formoterol Fumarate [Perforomist] 20 mcg INHALATION RT-BID@0800,1700 Potassium Chloride [K-Tab ER] 20 meq PO DAILY #1 tablet.er HYDROcodone/APAP 7.5-325MG [[place] 7.5-325] 1 tab PO Q6HR PRN PRN Reason: Pain Escitalopram [Lexapro] 20 mg PO DAILY Ipratropium-Albuterol Nebulize [Duoneb 0.5 mg-3 mg/3 ml Soln] 3 ml INHALATION RT-BID PRN PRN Reason: Shortness Of Breath Or Wheezing Budesonide [Pulmicort] 0.5 mg INHALATION RT-BID Furosemide [Lasix] 80 mg PO BID@0900,1600 #60 tab Discontinued Clopidogrel [Plavix] 75 mg PO DAILY@0800 Discharge Medication List Levothyroxine Sodium [Synthroid] 125 mcg PO DAILY@0600 05/14/15 [History] Metoprolol Tartrate [Lopressor] 50 mg PO TID@0800,1200,1700 08/02/15 [History] Levalbuterol Tartrate [Xopenex Hfa Inhaler] 2 puff INHALATION RT-Q6H PRN [History] Aspirin EC [Ecotrin Low Dose] 81 mg PO HS@209912/14/16 [History] Famotidine [Pepcid] 20 mg PO DAILY@0800 12/14/16 [History] Melatonin 5 mg PO HS PRN 12/14/16 [History] LORazepam [Ativan] 0.5 mg PO Q8H PRN #20 tab 12/29/16 [Rx] Apixaban [Eliquis] 5 mg PO BID@0800,209901/15/17 [History] Atorvastatin [Lipitor] 80 mg PO HS@209901/15/17 [History] Ferrous Sulfate [Iron (65 MG Elemental)] 325 mg PO BID@0800,209901/15/17 [ History] Formoterol Fumarate [Perforomist] 20 mcg INHALATION RT-BID@0800,1700 01/15/17 [ History] Potassium Chloride [K-Tab ER] 20 meq PO DAILY #1 tablet.er 01/22/17 [Rx] Budesonide [Pulmicort] 0.5 mg INHALATION RT-BID 06/18/17 [History] Escitalopram [Lexapro] 20 mg PO DAILY 06/18/17 [History] HYDROcodone/APAP 7.5-325MG [[place] 7.5-325] 1 tab PO Q6HR PRN 06/18/17 [History] Ipratropium-Albuterol Nebulize [Duoneb 0.5 mg-3 mg/3 ml Soln] 3 ml INHALATION RT -BID PRN 06/18/17 [History] Furosemide [Lasix] 80 mg PO BID@0900,1600 #60 tab 06/24/17 [Rx] Follow up Appointment(s)/Referral(s): Jaleel Payton MD [STAFF PHYSICIAN] - 07/24/17 4:15 pm (scheduled appointment) Don Crowley DO [Doctor of Osteopathic Medicine] - 08/02/18 2:00 pm [facility], [NON-STAFF] - George Lloyd DO [Primary Care Provider] - 07/18/17 2:15 pm Ambulatory/Diagnostic Orders: Basic Metabolic Panel [LAB.AMB] Location: Determined By Patient Patient Instructions/Handouts: Atrial Fibrillation (DC), COPD (Chronic Obstructive Pulmonary Disease) (DC) Discharge Disposition: HOME WITH HOME HEALTH SERVICES <Iglesia Ramos - Last Filed: 07/17/17 21:05> Hospital Course: Attending note. Date of service-07/17/2017 This patient was seen and examined by me . Discussed the patient with my nurse practitioner Ms. Monk. Stable. Pattern baseline. No further epistaxis. On examination: Lungs haven't decreased breath sounds. Psych AO 3. Investigations: Hemoglobin 11.3 creatinine 1.2 to Assessment and plan: Epistaxis controlled. Plavix discontinued. Discussed with patient. Discharge home
[2017-07-17] MEDS ORDERED: methylPREDNISolone SOD SUCCI 40 MG/ML 1 ML VIAL IV SCH (21:00)
== END 2017-07-17 16:56 | disposition home health service (06) | DRG 151 ==
LOC: EC 18:46 → 6SEL 21:16
PROVIDERS: ADMIT Hospitalist; ATTEND Hospitalist
DX: R04.0 Epistaxis (principal); J96.11 Chronic respiratory failure with hypoxia; I42.8 Other cardiomyopathies; I48.1 Persistent atrial fibrillation; I11.0 Hypertensive heart disease with heart failure; I50.22 Chronic systolic (congestive) heart failure; G25.81 Restless legs syndrome; I48.2 Chronic atrial fibrillation; I48.92 Unspecified atrial flutter; Z99.81 Dependence on supplemental oxygen; E87.5 Hyperkalemia; E03.9 Hypothyroidism, unspecified; E78.5 Hyperlipidemia, unspecified; F32.9 Major depressive disorder, single episode, unspecified; F40.240 Claustrophobia; I25.10 Atherosclerotic heart disease of native coronary artery without angina pectoris; I25.2 Old myocardial infarction; I73.9 Peripheral vascular disease, unspecified; J44.9 Chronic obstructive pulmonary disease, unspecified; J45.909 Unspecified asthma, uncomplicated; K21.9 Gastro-esophageal reflux disease without esophagitis; M15.9 Polyosteoarthritis, unspecified; M79.7 Fibromyalgia; M81.0 Age-related osteoporosis without current pathological fracture; Z79.01 Long term (current) use of anticoagulants; Z79.02 Long term (current) use of antithrombotics/antiplatelets; Z79.899 Other long term (current) drug therapy; Z82.49 Family history of ischemic heart disease and other diseases of the circulatory system; Z87.891 Personal history of nicotine dependence; Z86.010 Personal history of colon polyps; I95.2 Hypotension due to drugs; T46.5X5A Adverse effect of other antihypertensive drugs, initial encounter; G47.00 Insomnia, unspecified
CPT/HCPCS: 36415; 70450; 71020; 80048; 80053; 82550; 82553; 83036; 83735; 84100; 84484; 85025; 85027; 85610; 85730; 93005; 94640; 94760; 96365; 96366; 96375; 96376; 99291

== ENCOUNTER 2017-11-05 22:42 | Inpatient (IN) | payer MEDICARE, OTHER ==
[2017-11-05] MEDS ORDERED: methylPREDNISolone SOD SUCCI 125 MG/2 ML VIAL IV STA (23:01)
[2017-11-05] MEDS ORDERED: IPRATROPIUM-ALBUTEROL 3 ML NEB INHALATION STA (23:01)
--- NOTE | 2017-11-05 23:10 | ED ---
SOB HPI - General Chief Complaint: Shortness of Breath Stated Complaint: CALIN Time Seen by Provider: 11/05/17 22:54 Source: patient, EMS Mode of arrival: EMS Limitations: no limitations - History of Present Illness Initial Comments: This 62-year-old white female presents with a complaint of shortness of breath. She also has had some wheezing and slight nonproductive cough. Her symptoms have been present for approximately 3 days. She denies any known measured fever. She denies any chest pain. She has a long history of COPD and this feels similar. She apparently had an x-ray at the [facility] and they thought she might have pneumonia. She also complains of some left lower extremity swelling , pain, and redness. She was diagnosed with some cellulitis and has been on some antibiotics for this. She denies any other complaints or modifying factors. - Related Data Home Medications Medication Instructions Recorded Confirmed Levalbuterol Tartrate [Xopenex Hfa 2 puff INHALATION 01/21/16 11/05/17 Inhaler] RT-Q6H@00,,, Aspirin EC [Ecotrin Low Dose] 81 mg PO HS 12/14/16 11/05/17 Famotidine [Pepcid] 20 mg PO DAILY 12/14/16 11/05/17 Melatonin 5 mg PO HS 12/14/16 11/05/17 Atorvastatin [Lipitor] 80 mg PO HS 01/15/17 11/05/17 Ferrous Sulfate [Iron (65 MG 325 mg PO BID 01/15/17 11/05/17 Elemental)] Formoterol Fumarate [Perforomist] 20 mcg INHALATION RT-BID@0800,1700 01/15/17 Budesonide [Pulmicort] 0.5 mg INHALATION RT-BID@1000,1400 06/18/17 11/05/17 Escitalopram [Lexapro] 20 mg PO DAILY 06/18/17 11/05/17 Ipratropium-Albuterol Nebulize 3 ml INHALATION RT-BID PRN 06/18/17 11/05/17 [Duoneb 0.5 mg-3 mg/3 ml Soln] Levalbuterol Nebulized [Xopenex 1.25 mg INHALATION RT-TID 08/09/17 11/05/17 Nebulized] Sacubitril/Valsartan [Entresto 97 1 tab PO BID@0800,1700 08/09/17 11/05/17 mg-103 mg Tablet] Bisacodyl 10 mg RECTAL DAILY PRN 09/24/17 11/05/17 HYDROcodone/APAP 5-325MG [[place] 1 tab PO Q6HR PRN 09/24/17 11/05/17 5-325] LORazepam [Ativan] 0.5 mg PO Q8H PRN 09/24/17 11/05/17 Magnesium Hydroxide [Milk of 2,400 mg PO DAILY PRN 09/24/17 11/05/17 Magnesia] Metoprolol Tartrate [Lopressor] 25 mg PO BID@0800,1700 09/24/17 11/05/17 Na Phos,M-B/Na Phos,Di-Ba [Fleet 133 ml RECTAL DAILY PRN 09/24/17 11/05/17 Adult] Acetaminophen [Tylenol] 650 mg PO Q4H PRN 11/05/17 11/05/17 Cephalexin [Keflex] 500 mg PO Q12HR 11/05/17 11/05/17 Colloidal Oatmeal [Eucerin Eczema 1 applic TOPICAL BID 11/05/17 11/05/17 Relief] Furosemide [Lasix] 40 mg PO MOTH 11/05/17 11/05/17 Levothyroxine Sodium [Synthroid] 137 mcg PO DAILY 11/05/17 11/05/17 Loperamide [Imodium] 2 mg PO QID PRN 11/05/17 11/05/17 Previous Rx's Medication Instructions Recorded Amiodarone [Cordarone] 200 mg PO DAILY #30 tab 09/03/17 Bisacodyl [Dulcolax] 10 mg PO DAILY PRN tablet. 09/03/17 Apixaban [Eliquis] 2.5 mg PO BID #30 tablet 10/01/17 Torsemide [Demadex] 20 mg PO DAILY #30 tab 10/01/17 Allergies Allergy/AdvReac Type Severity Reaction Status Date / Time ciprofloxacin HCl Allergy Severe Anaphylaxis Verified 11/05/17 22:53 [From Cipro] budesonide [From Symbicort] AdvReac Rapid Verified 11/05/17 22:53 Heart Rate formoterol fumarate AdvReac Rapid Verified 01/08/18 22:53 [From Symbicort] Heart Rate Review of Systems ROS Statement: Those systems with pertinent positive or pertinent negative responses have been documented in the HPI. ROS Other: All systems not noted in ROS Statement are negative. Past Medical History Past Medical History: Atrial Fibrillation, Coronary Artery Disease (CAD), Heart Failure, COPD, Fibromyalgia, GERD/Reflux, Hyperlipidemia, Hypertension, Myocardial Infarction (ND), Osteoarthritis (OA), Renal Disease, Syncope, Thyroid Disorder Additional Past Medical History / Comment(s): COPD and the patient is on home O2 at 3 L nasal cannula , congestion heart failure history of atrial fibrillation/flutter/atrial tachycardia with previous cardiac ablation, fibromyalgia, hyperlipidemia, hypertension, colonic polyps, previous coronary artery disease and reported history of myocardial infarction, hypothyroidism, degenerative arthritis, "non ischemiccardio myopathy", and severe peripheral vascular disease, severe epistaxis from multiple anticoagulants. Plavix has been discontinued per Dr. Payton. Patient to be kept on Eliquis and aspirin, PVOD and previous stent in the LLE Last Myocardial Infarction Date:: 2013 History of Any Multi-Drug Resistant Organisms: ESBL Date of last positivie culture/infection: 09/24/17 MDRO Source:: ESBL URINE Past Surgical History: Bowel Resection, Cardiac Ablation, Section, Heart Catheterization, Tubal Ligation Additional Past Surgical History / Comment(s): Bowel resection, cardiac ablation for atrial flutter, , cardiac catheterization, tubal ligation , stent left leg Past Anesthesia/Blood Transfusion Reactions: Motion Sickness Additional Past Anesthesia/Blood Transfusion Reaction / Comment(s): CLAUSTROPHOBIA Past Psychological History: Anxiety, Depression Smoking Status: Former smoker Past Alcohol Use History: None Reported Past Drug Use History: None Reported - Past Family History Mother Family Medical History: Cancer Father Family Medical History: Coronary Artery Disease (CAD) General Exam - General Exam Comments Initial Comments: GENERAL: The patient is well nourished and well hydrated. VITAL SIGNS: Heart rate, blood pressure, respiratory rate reviewed as recorded in nurse's notes. EYES: Pupils are round and reactive. Extraocular movements are intact. No conjunctival / lid redness or swelling. ENT: No external evidence of injury, swelling, or ecchymosis. Airway is patent. Throat is clear. NECK: Nontender. No swelling or evidence of injury. No subcutaneous emphysema. Trachea is midline. No thyroid mass. HEART: Regular rate and rhythm. Good peripheral pulses. LUNGS/CHEST: Wheezing is noted to the bilateral chest. No ecchymosis, subcutaneous emphysema, or tenderness. ABDOMEN: Abdomen soft without tenderness. No palpable masses or organomegaly. No peritoneal signs. No abdominal wall swelling or ecchymosis. EXTREMITIES: Normal muscle tone and function. No thoracolumbar tenderness. There is some tenderness, swelling, and erythema to the left leg distal to the knee. NEUROLOGIC: Sensation is grossly intact. Cranial nerve exam reveals face is symmetrical, tongue is midline, speech is clear. SKIN: No abrasions or ecchymosis is noted. No induration or masses noted. There is some slight erythema noted diffusely to the left leg below the knee with associated edema and slight tenderness. PSYCHIATRIC: Alert and oriented. Appropriate behavior and judgment. Limitations: no limitations Course Vital Signs 11/05/17 11/06/17 22:43 00:07 Temperature 97.2 F L Pulse Rate 100 76 Respiratory 26 H Rate Blood Pressure 102/60 O2 Sat by Pulse 92 L Oximetry Medical Decision Making - Medical Decision Making The patient was seen and examined. All diagnostics were reviewed. An IV is started. The patient does receive some Solu-Medrol intravenously. She is also given a double DuoNeb breathing treatment. The EKG is reviewed and shows atrial fibrillation at a heart rate of 84. There is an incomplete right bundle- branch block noted. The patient has some nonspecific ST-T wave changes noted in the inferior leads. The QRS duration is 104 and the QTC intervals 465. The chest x-ray shows evidence of congestive heart failure. The laboratory shows a significant elevation of the BNP, a mild anemia, and renal insufficiency. The CO2 is significantly elevated as well. It is felt as though she benefit from admission to the hospital. Case will be discussed with internal medicine in the near future. She is given aspirin, Lasix, and Nitropaste. It is also felt as though she has a COPD exacerbation. In addition, she has a cellulitis of her left leg and will receive antibiotics. - Lab Data Result diagrams: 11/05/17 22:59 11/05/17 22:59 Lab Results 11/05/17 11/05/17 11/05/17 Range/Units 22:59 22:59 22:59 WBC 6.0 (3.8-10.6) k/uL RBC 3.48 L (3.80-5.40) m/uL Hgb 11.2 L (11.4-16.0) gm/dL Hct 38.7 (34.0-46.0) % MCV 111.1 H (80.0-100.0) fL MCH 32.1 (25.0-35.0) pg MCHC 28.9 L (31.0-37.0) g/dL RDW 16.1 H (11.5-15.5) % Plt Count 206 (150-450) k/uL Neutrophils % (Manual) 64 % Lymphocytes % (Manual) 13 % Monocytes % (Manual) 19 % Eosinophils % (Manual) 3 % Myelocytes % 1 % Neutrophils # (Manual) 3.84 (1.3-7.7) k/uL Lymphocytes # (Manual) 0.78 L (1.0-4.8) k/uL Monocytes # (Manual) 1.14 H (0-1.0) k/uL Eosinophils # (Manual) 0.18 (0-0.7) k/uL Myelocytes # (Manual) 0.06 H (0) k/uL Nucleated RBCs 0 (0-0) /100 WBC Manual Slide Review Performed Large Platelets Present Hypochromasia Marked Anisocytosis Slight Macrocytosis Marked PT (9.0-12.0) sec INR (<1.2) APTT (22.0-30.0) sec Sodium 140 (137-145) mmol/L Potassium 4.4 (3.5-5.1) mmol/L Chloride 90 L (98-107) mmol/L Carbon Dioxide 41 H* (22-30) mmol/L Anion Gap 9 mmol/L BUN 28 H (7-17) mg/dL Creatinine 1.40 H (0.52-1.04) mg/dL Est GFR (MDRD) Af Amer 46 (>60 ml/min/1.73 sqM) Est GFR (MDRD) Non-Af 38 (>60 ml/min/1.73 sqM) Glucose 132 H (74-99) mg/dL Calcium 8.8 (8.4-10.2) mg/dL Total Bilirubin 0.9 (0.2-1.3) mg/dL AST 44 H (14-36) U/L ALT 43 (9-52) U/L Alkaline Phosphatase 92 (38-126) U/L Total Creatine Kinase 44 (30-135) U/L CK-MB (CK-2) 1.9 (0.0-2.4) ng/mL CK-MB (CK-2) Rel Index 4.3 Troponin I 0.015 (0.000-0.034) ng/mL NT-Pro-B Natriuret Pep pg/mL Total Protein 6.3 (6.3-8.2) g/dL Albumin 3.4 L (3.5-5.0) g/dL 11/05/17 11/05/17 Range/Units 22:59 22:59 WBC (3.8-10.6) k/uL RBC (3.80-5.40) m/uL Hgb (11.4-16.0) gm/dL Hct (34.0-46.0) % MCV (80.0-100.0) fL MCH (25.0-35.0) pg MCHC (31.0-37.0) g/dL RDW (11.5-15.5) % Plt Count (150-450) k/uL Neutrophils % (Manual) % Lymphocytes % (Manual) % Monocytes % (Manual) % Eosinophils % (Manual) % Myelocytes % % Neutrophils # (Manual) (1.3-7.7) k/uL Lymphocytes # (Manual) (1.0-4.8) k/uL Monocytes # (Manual) (0-1.0) k/uL Eosinophils # (Manual) (0-0.7) k/uL Myelocytes # (Manual) (0) k/uL Nucleated RBCs (0-0) /100 WBC Manual Slide Review Large Platelets Hypochromasia Anisocytosis Macrocytosis PT 12.5 H (9.0-12.0) sec INR 1.3 H (<1.2) APTT 26.3 (22.0-30.0) sec Sodium (137-145) mmol/L Potassium (3.5-5.1) mmol/L Chloride (98-107) mmol/L Carbon Dioxide (22-30) mmol/L Anion Gap mmol/L BUN (7-17) mg/dL Creatinine (0.52-1.04) mg/dL Est GFR (MDRD) Af Amer (>60 ml/min/1.73 sqM) Est GFR (MDRD) Non-Af (>60 ml/min/1.73 sqM) Glucose (74-99) mg/dL Calcium (8.4-10.2) mg/dL Total Bilirubin (0.2-1.3) mg/dL AST (14-36) U/L ALT (9-52) U/L Alkaline Phosphatase (38-126) U/L Total Creatine Kinase (30-135) U/L CK-MB (CK-2) (0.0-2.4) ng/mL CK-MB (CK-2) Rel Index Troponin I (0.000-0.034) ng/mL NT-Pro-B Natriuret Pep 81918 pg/mL Total Protein (6.3-8.2) g/dL Albumin (3.5-5.0) g/dL Disposition Clinical Impression: COPD exacerbation, Hypoxia, Dyspnea, Left leg cellulitis, Chronic atrial fibrillation, Congestive heart failure, Anemia, Renal insufficiency Disposition: ADMITTED IP TO THIS [facility] Condition: Fair Referrals: George Lloyd DO [Primary Care Provider] - 1-2 days Time of Disposition: 00:23 Decision Date: 11/06/17 Decision Time: 00:23
[2017-11-05 23:22] LABS: Anisocytosis Slight; HCT 38.7 % (34.0-46.0); HGB 11.2 gm/dL (11.4-16.0); Hypochromasia Marked; MCH 32.1 pg (25.0-35.0); MCHC 28.9 g/dL (31.0-37.0); MCV 111.1 fL (80.0-100.0); Macrocytosis Marked; Mean Platelet Volume 7.9; Platelet Count 206 k/uL (150-450); RBC 3.48 m/uL (3.80-5.40); RDW 16.1 % (11.5-15.5)
[2017-11-05 23:26] LABS: INR 1.3 (<1.2); Partial Thromboplastin Time 26.3 sec (22.0-30.0); Prothrombin Time 12.5 sec (9.0-12.0)
[2017-11-05 23:27] LABS: Albumin 3.4 g/dL (3.5-5.0); Calcium 8.8 mg/dL (8.4-10.2); Potassium 4.4 mmol/L (3.5-5.1); Total Bilirubin 0.9 mg/dL (0.2-1.3); Total Protein 6.3 g/dL (6.3-8.2)
--- NOTE | 2017-11-05 23:31 | XR ---
EXAMINATION TYPE: XR chest 2V DATE OF EXAM: 11/05/2017 COMPARISON: 09/25/2017 HISTORY: Short of breath TECHNIQUE: Frontal and lateral views of the chest are obtained. FINDINGS: Heart is enlarged. There is some pulmonary vascular congestion. Thoracic aorta is atheroma tous. There are chest leads. There is blunting of costophrenic angles. IMPRESSION: There is new mild congestive heart failure with pleural effusions compared to last exam. Cardiomegaly. Cardiomegaly appears worse than last exam.
[2017-11-05 23:37] LABS: Eosinophils # (M) 0.18 k/uL (0-0.7); Large Platelets Present; Lymphocytes # (M) 0.78 k/uL (1.0-4.8); Monocytes # (M) 1.14 k/uL (0-1.0); Myelocytes # (M) 0.06 k/uL (0); Myelocytes % 1 %; Neutrophils # (M) 3.84 k/uL (1.3-7.7); Neutrophils % (M) 64 %; Nucleated Red Blood Cells 0 /100 WBC (0-0); Total Cells Counted 200
--- NOTE | 2017-11-05 23:51 | US ---
EXAMINATION TYPE: US venous doppler duplex LE LT DATE OF EXAM: 11/05/2017 11:40 PM COMPARISON: NONE CLINICAL HISTORY: Pain. Left leg pain and edema SIDE PERFORMED: Left TECHNIQUE: The lower extremity deep venous system is examined utilizing real time linear array sonog fernanda with graded compression, doppler sonography and color-flow sonography. VESSELS IMAGED: External Iliac Vein (EIV) Common Femoral Vein Deep Femoral Vein Greater Saphenous Vein * Femoral Vein Popliteal Vein Small Saphenous Vein * Proximal Calf Veins (* superficial vessels) No evidence of DVT left leg. Left Leg: Negative for DVT IMPRESSION: Normal exam. No evidence of deep venous thrombosis in the left leg.
[2017-11-05 23:55] LABS: Creatine Kinase MB 1.9 ng/mL (0.0-2.4); Troponin I 0.015 ng/mL (0.000-0.034)
[2017-11-06] MEDS ORDERED: FUROSEMIDE 10 MG/ML 10 ML VIAL IV STA (00:17)
[2017-11-06] MEDS ORDERED: ASPIRIN 81 MG PO STA (00:17)
[2017-11-06] MEDS ORDERED: NITROGLYCERIN OINT 1 INCH/GM PACKET TOPICAL STA (00:18)
[2017-11-06] MEDS ORDERED: AMPICILLIN-SULBACTAM 3 GM in SODIUM CHLORIDE 0.9% 100 ML IVPB STA (00:24)
[2017-11-06] MEDS ORDERED: VANCOMYCIN IV PER PHARMACY 1 EACH MISC MISCELLANE PRN (00:24)
[2017-11-06] MEDS ORDERED: LOPERAMIDE 2 MG CAP PO PRN (00:29)
[2017-11-06] MEDS ORDERED: NA PHOS,M-B/NA PHOS,DI-BA 133 ML ENEMA RECTAL PRN (00:29)
[2017-11-06] MEDS ORDERED: MAGNESIUM HYDROXIDE 2,400 MG/10 ML CUP PO PRN (00:29)
[2017-11-06] MEDS ORDERED: ACETAMINOPHEN TAB 325 MG TAB PO PRN (00:29)
[2017-11-06] MEDS ORDERED: BISACODYL 5 MG TABLET.DR PO PRN (00:29)
[2017-11-06] MEDS ORDERED: BISACODYL 10 MG SUPP RECTAL PRN (00:29)
[2017-11-06] MEDS ORDERED: VANCOMYCIN 1,500 MG in SODIUM CHLORIDE 0.9% 250 ML IVPB ONE (02:00)
[2017-11-06] MEDS: IPRATROPIUM-ALBUTEROL 3 ML NEB INHALATION SCH ×6 (03:39→23:36)
[2017-11-06 06:16] LABS: Glucose,Whole Blood 138 mg/dL (75-99)
[2017-11-06 06:46] LABS: Creatine Kinase MB 1.9 ng/mL (0.0-2.4); Troponin I <0.012 ng/mL (0.000-0.034)
[2017-11-06] MEDS: FORMOTEROL FUMARATE 20 MCG/2 ML NEBU INHALATION SCH ×2 (08:22→20:28)
[2017-11-06] MEDS ORDERED: NALOXONE 0.4 MG/ML 1 ML VIAL IV PRN (08:25)
[2017-11-06] MEDS ORDERED: TORSEMIDE 20 MG TAB PO SCH (09:00)
[2017-11-06] MEDS ORDERED: NITROGLYCERIN OINT 1 INCH/GM PACKET TOPICAL SCH (09:00)
--- NOTE | 2017-11-06 09:09 | P.CRDCN ---
History of Present Illness Consult date: 11/06/17 Requesting physician: Iglesia Ramos Consult reason: congestive heart failure Chief complaint: Shortness of breath History of present illness: This is a pleasant 62-year-old female with known history of end-stage COPD, hypertension, hyperlipidemia, peripheral vascular disease with prior peripheral stenting, nonischemic cardiomyopathy, chronic persistent atrial fibrillation, prior cardiac ablation hypertension, hyperlipidemia, who is currently at [facility] for rehab, she presented to the hospital with a 2-3 day duration of worsening shortness of breath. Overall the patient states she's been doing fairly well. Patient does have a productive cough, positive PND and orthopnea. Positive peripheral edema. EKG on admission showed atrial fibrillation with an incomplete right bundle branch block pattern. Venous duplex study was negative for DVT in the left leg. Chest x-ray shows new mild congestive heart failure with pleural effusions as compared with prior exam. White blood cell count is normal, hemoglobin 11.2, platelet count 206. Sodium 140, potassium 4.4, chloride 90, CO2 41, BUN 28, creatinine 1.4. BNP level 10, 700., troponin 0.015, 0.012. TSH level 10.6. She was initiated on IV Lasix in the emergency room, she was also initiated on IV steroids and antibiotics. At the time of my examination this morning, she is sitting up in bed, continues to feel quite short of breath, significant wheezing. She also has evidence of significant redness and cellulitis in her left lower extremity. Past Medical History Past Medical History: Atrial Fibrillation, Coronary Artery Disease (CAD), Heart Failure, COPD, Fibromyalgia, GERD/Reflux, Hyperlipidemia, Hypertension, Myocardial Infarction ([place]), Osteoarthritis (OA), Renal Disease, Syncope, Thyroid Disorder Additional Past Medical History / Comment(s): COPD and the patient is on home O2 at 3 L nasal cannula , congestion heart failure history of atrial fibrillation/flutter/atrial tachycardia with previous cardiac ablation, fibromyalgia, hyperlipidemia, hypertension, colonic polyps, previous coronary artery disease and reported history of myocardial infarction, hypothyroidism, degenerative arthritis, "non ischemiccardio myopathy", and severe peripheral vascular disease, severe epistaxis from multiple anticoagulants. Plavix has been discontinued per Dr. Payton. Patient to be kept on Eliquis and aspirin, PVOD and previous stent in the LLE Last Myocardial Infarction Date:: 2013 History of Any Multi-Drug Resistant Organisms: ESBL Date of last positivie culture/infection: 09/24/17 MDRO Source:: ESBL URINE Past Surgical History: Bowel Resection, Cardiac Ablation, Section, Heart Catheterization, Tubal Ligation Additional Past Surgical History / Comment(s): Bowel resection, cardiac ablation for atrial flutter, , cardiac catheterization, tubal ligation , stent left leg Past Anesthesia/Blood Transfusion Reactions: Motion Sickness Additional Past Anesthesia/Blood Transfusion Reaction / Comment(s): CLAUSTROPHOBIA Past Psychological History: Anxiety, Depression Additional Psychological History / Comment(s): PT LIVES ALONE IN APT THAT HAS 4 STEPS TO ENTER. PT IS INDEPENDANT HAS WALKER TO USE WHEN NEEDED, HOME 02, NEBULIZER, BSC, shower chair. 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 HAS 1 INDOOR CAT.received [facility] home care nurse Smoking Status: Former smoker Past Alcohol Use History: None Reported Additional Past Alcohol Use History / Comment(s): Patient smoked for 40 years one and a half packs per day and quit in October 2016. She lives in an apartment by herself and has a cat in the home. She is also on home O2, she has a walker, nebulizer bedside commode, shower chair. 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 Past Drug Use History: None Reported - Past Family History Mother Family Medical History: Cancer Father Family Medical History: Coronary Artery Disease (CAD) Medications and Allergies Home Medications Medication Instructions Recorded Confirmed Type Levalbuterol Tartrate [Xopenex Hfa 2 puff INHALATION 01/21/16 11/05/17 History Inhaler] RT-Q6H@00,06,,18 Aspirin EC [Ecotrin Low Dose] 81 mg PO HS 12/14/16 11/05/17 History Famotidine [Pepcid] 20 mg PO DAILY 12/14/16 11/05/17 History Melatonin 5 mg PO HS 12/14/16 11/05/17 History Atorvastatin [Lipitor] 80 mg PO HS 01/15/17 11/05/17 History Ferrous Sulfate [Iron (65 MG 325 mg PO BID 01/15/17 11/05/17 History Elemental)] Formoterol Fumarate [Perforomist] 20 mcg INHALATION RT-BID@0800,1700 01/15/17 History Budesonide [Pulmicort] 0.5 mg INHALATION RT-BID@1000,1400 06/18/17 11/05/17 History Escitalopram [Lexapro] 20 mg PO DAILY 06/18/17 11/05/17 History Ipratropium-Albuterol Nebulize 3 ml INHALATION RT-BID PRN 06/18/17 11/05/17 History [Duoneb 0.5 mg-3 mg/3 ml Soln] Levalbuterol Nebulized [Xopenex 1.25 mg INHALATION RT-TID 08/09/17 11/05/17 History Nebulized] Sacubitril/Valsartan [Entresto 97 1 tab PO BID@0800,1700 08/09/17 11/05/17 History mg-103 mg Tablet] Amiodarone [Cordarone] 200 mg PO DAILY #30 tab 09/03/17 11/05/17 Rx Bisacodyl [Dulcolax] 10 mg PO DAILY PRN tablet. 09/03/17 11/05/17 Rx Bisacodyl 10 mg RECTAL DAILY PRN 09/24/17 11/05/17 History HYDROcodone/APAP 5-325MG [[place] 1 tab PO Q6HR PRN 09/24/17 11/05/17 History 5-325] LORazepam [Ativan] 0.5 mg PO Q8H PRN 09/24/17 11/05/17 History Magnesium Hydroxide [Milk of 2,400 mg PO DAILY PRN 09/24/17 11/05/17 History Magnesia] Metoprolol Tartrate [Lopressor] 25 mg PO BID@0800,1700 09/24/17 11/05/17 History Na Phos,M-B/Na Phos,Di-Ba [Fleet 133 ml RECTAL DAILY PRN 09/24/17 11/05/17 History Adult] Apixaban [Eliquis] 2.5 mg PO BID #30 tablet 10/01/17 11/05/17 Rx Torsemide [Demadex] 20 mg PO DAILY #30 tab 10/01/17 11/05/17 Rx Acetaminophen [Tylenol] 650 mg PO Q4H PRN 11/05/17 11/05/17 History Cephalexin [Keflex] 500 mg PO Q12HR 11/05/17 11/05/17 History Colloidal Oatmeal [Eucerin Eczema 1 applic TOPICAL BID 11/05/17 11/05/17 History Relief] Furosemide [Lasix] 40 mg PO MOTH 11/05/17 11/05/17 History Levothyroxine Sodium [Synthroid] 137 mcg PO DAILY 11/05/17 11/05/17 History Loperamide [Imodium] 2 mg PO QID PRN 11/05/17 11/05/17 History Allergies Allergy/AdvReac Type Severity Reaction Status Date / Time ciprofloxacin HCl Allergy Severe Anaphylaxis Verified 11/05/17 22:53 [From Cipro] budesonide [From Symbicort] AdvReac Rapid Verified 11/05/17 22:53 Heart Rate formoterol fumarate AdvReac Rapid Verified 11/05/17 22:53 [From Symbicort] Heart Rate Physical Exam Vitals: Vital Signs Temp Pulse Pulse Resp BP BP Pulse Ox 11/06/17 04:00 94 18 87/58 97 11/06/17 03:50 91 11/06/17 03:39 84 11/06/17 02:32 97.7 F 97 16 97/60 93 L 11/06/17 01:37 97.7 F 97 16 97/60 83 L 11/06/17 01:00 84 18 111/66 99 11/06/17 00:31 82 23 111/66 100 11/06/17 00:21 86 11/06/17 00:07 76 11/05/17 22:43 97.2 F L 100 26 H 102/60 92 L Intake and Output 11/05/17 11/06/17 11/06/17 22:59 06:59 14:59 Output Total 450 Balance -450 Output: Urine 450 Other: Voiding Method Bedpan # Voids 2 Weight 78.925 kg 78.8 kg PHYSICAL EXAMINATION: HEENT: Head is atraumatic, normocephalic. Pupils equal, round. Neck is supple. There is elevated jugular venous pressure. HEART EXAMINATION: Heart S1 and S2 irregularly irregular CHEST EXAMINATION: Lungs reveal decreased air exchange throughout, scattered coarse wheezing throughout. ABDOMEN: Soft, nontender. Bowel sounds are heard. No organomegaly noted. EXTREMITIES:[ 1+ peripheral pulses with 1+ evidence of peripheral edema more in the left lower extremity than the right, evidence of cellulitis in the left lower extremity NEUROLOGIC patient is awake, alert and oriented -3. . Results 11/05/17 22:59 11/05/17 22:59 Cardiac Enzymes 11/05/17 11/05/17 11/06/17 Range/Units 22:59 22:59 05:25 AST 44 H (14-36) U/L CK-MB (CK-2) 1.9 1.9 (0.0-2.4) ng/mL Troponin I 0.015 <0.012 (0.000-0.034) ng/mL Coagulation 11/05/17 Range/Units 22:59 PT 12.5 H (9.0-12.0) sec APTT 26.3 (22.0-30.0) sec CBC 11/05/17 Range/Units 22:59 WBC 6.0 (3.8-10.6) k/uL RBC 3.48 L (3.80-5.40) m/uL Hgb 11.2 L (11.4-16.0) gm/dL Hct 38.7 (34.0-46.0) % Plt Count 206 (150-450) k/uL Comprehensive Metabolic Panel 11/05/17 Range/Units 22:59 Sodium 140 (137-145) mmol/L Potassium 4.4 (3.5-5.1) mmol/L Chloride 90 L (98-107) mmol/L Carbon Dioxide 41 H* (22-30) mmol/L BUN 28 H (7-17) mg/dL Creatinine 1.40 H (0.52-1.04) mg/dL Glucose 132 H (74-99) mg/dL Calcium 8.8 (8.4-10.2) mg/dL AST 44 H (14-36) U/L ALT 43 (9-52) U/L Alkaline Phosphatase 92 (38-126) U/L Total Protein 6.3 (6.3-8.2) g/dL Albumin 3.4 L (3.5-5.0) g/dL Current Medications Generic Name Dose Route Start Last Admin Trade Name Freq PRN Reason Stop Dose Admin Acetaminophen 650 mg 11/06/17 00:29 Tylenol Tab PO Q4H PRN Fever and/ or Mild Pain Hydrocodone Bitart/Acetaminophen 1 each 11/06/17 00:29 [place] 5-325 PO Q6HR PRN Moderate Pain Albuterol/Ipratropium 3 ml 11/06/17 04:00 11/06/17 08:23 Duoneb 0.5 Mg-3 Mg/3 Ml Soln INHALATION 3 ml RT-Q4H [facility] Administration Amiodarone HCl 200 mg 11/06/17 09:00 Cordarone PO DAILY [facility] Apixaban 2.5 mg 11/06/17 09:00 Eliquis PO BID [facility] Aspirin 81 mg 11/06/17 12:00 Aspirin PO DAILY [facility] Atorvastatin Calcium 80 mg 11/06/17 21:00 Lipitor PO HS [facility] Bisacodyl 10 mg 11/06/17 00:29 Dulcolax RECTAL DAILY PRN Constipation Bisacodyl 10 mg 11/06/17 00:29 Dulcolax PO DAILY PRN Constipation Budesonide 0.5 mg 11/06/17 10:00 11/06/17 08:23 Pulmicort INHALATION 0.5 mg RT-BID@1000,1400 [facility] Administration Escitalopram Oxalate 20 mg 11/06/17 09:00 Lexapro PO DAILY [facility] Famotidine 20 mg 11/06/17 09:00 Pepcid PO DAILY [facility] Ferrous Sulfate 325 mg 11/06/17 09:00 Feosol PO BID [facility] Formoterol Fumarate 20 mcg 11/06/17 08:00 11/06/17 08:22 Perforomist INHALATION 20 mcg RT-BID@0800,1700 [facility] Administration Furosemide 40 mg 11/06/17 13:00 Lasix IV Q12H [facility] Ampicillin Sodium/Sulbactam 100 mls @ 100 mls/hr 11/06/17 09:00 Sodium 3 gm/ Sodium Chloride IVPB QID [facility] Levothyroxine Sodium 137 mcg 11/06/17 06:30 Synthroid PO 0630 [facility] Loperamide HCl 2 mg 11/06/17 00:29 Imodium PO QID PRN Loose Stool Lorazepam 0.5 mg 11/06/17 00:29 Ativan PO Q8H PRN Anxiety Magnesium Hydroxide 2,400 mg 11/06/17 00:29 Milk Of Magnesia PO DAILY PRN Constipation Melatonin 5 mg 11/06/17 21:00 Melatonin PO HS [facility] Methylprednisolone Sodium Succinate 60 mg 11/06/17 09:00 Solu-Medrol IV QID [facility] Metoprolol Tartrate 25 mg 01/09/18 08:00 Lopressor PO BID@0800,1700 [facility] Miscellaneous Information 1 each 11/06/17 00:24 Pharmacy To Dose Iv Vancomycin MISCELLANE DIRECTED PRN Per Protocol Naloxone HCl 0.2 mg 11/06/17 08:25 Narcan IV Q2M PRN Opioid Reversal Nitroglycerin 1 inch 11/06/17 09:00 Nitro-Bid Oint TOPICAL QID [facility] Non-Formulary Medication 1 applic 11/06/17 09:00 Colloidal Oatmeal [Eucerin Eczema Relief] TOPICAL BID [facility] Sacubitril/Valsartan 1 each 11/06/17 08:00 Entresto 97 Mg-103 Mg Tablet PO BID@0800,1700 [facility] Sodium Biphosphate/Sodium Phosphate 133 ml 11/06/17 00:29 Fleet Adult RECTAL DAILY PRN Constipation Intake and Output 11/05/17 11/06/17 11/06/17 22:59 06:59 14:59 Output Total 450 Balance -450 Output: Urine 450 Other: Voiding Method Bedpan # Voids 2 Weight 78.925 kg 78.8 kg 11/05/17 22:59 11/05/17 22:59 EKG Interpretations (text) EKG shows atrial fibrillation with a controlled ventricular response. Assessment and Plan Plan: Assessment and plan #1 systolic congestive heart failure acute on chronic #2 exacerbation of COPD #3 known history of moderate to severe peripheral vascular disease with prior stenting #4 chronic persistent atrial fibrillation, on Eliquis for anticoagulation, patient did have prior ablation. #5 acute on chronic kidney injury #6 nonischemic cardiomyopathy #7 hypertension #8 hyperlipidemia #9 moderate to severe COPD Plan We will obtain an echocardiogram with Doppler study, continue current dose of IV Lasix. Continue IV steroids and antibiotics. Further recommendations to follow. DNP note has been reviewed, I agree with a documented findings and plan of care. Patient was seen and examined.
--- NOTE | 2017-11-06 09:21 | P.PN ---
Progress Note - Text This is an addendum to the dictated cardiology consultation. The patient has a known history of severe chronic obstructive lung disease, history of chronic atrial fibrillation ,prior history of cardiomyopathy who presented with symptoms progressive dyspnea, and cough. She has left lower extremity cellulitis and has been treated with antibiotics. She denies any significant chest pain, she has no dizziness or palpitations or syncope. On her physical examination she has decreased air exchange with scattered crackles. She is in atrial fibrillation with a systolic murmur at the base. She has 1-2+ edema on the left side with mild erythema. The patient presents with progressive dyspnea that appears to be a combination of congestive heart failure and COPD. She has a known history of dilated right ventricle and pulmonary hypertension in the past. We will continue on IV diuresis, follow the renal function. Obtain a repeat echocardiogram and depending on her progress further recommendations will be made. Thank you for this consult we will follow with you.
[2017-11-06] MEDS: AMPICILLIN-SULBACTAM 3 GM in SODIUM CHLORIDE 0.9% 100 ML IVPB SCH ×4 (09:36→23:36)
[2017-11-06] MEDS: APIXABAN 2.5 MG TABLET PO SCH ×2 (09:47→20:25)
[2017-11-06] MEDS: LEVOTHYROXINE 137 MCG TAB PO SCH (09:47)
[2017-11-06] MEDS: AMIODARONE 200 MG TAB PO SCH (09:47)
[2017-11-06] MEDS: FERROUS SULFATE 325 MG TAB PO SCH ×2 (09:48→20:25)
[2017-11-06] MEDS: ESCITALOPRAM 20 MG TAB PO SCH (09:48)
[2017-11-06] MEDS: NON-FORMULARY DRUG (Colloidal Oatmeal [Eucerin Eczema Relief] 1 APPLIC) TOPICAL SCH (09:48)
[2017-11-06] MEDS: methylPREDNISolone SOD SUCCI 125 MG/2 ML VIAL IV SCH ×3 (09:49→17:53)
[2017-11-06] MEDS ORDERED: BUDESONIDE 0.5 MG/2 ML NEBU INHALATION SCH (10:00)
[2017-11-06] MEDS: SACUBITRIL/VALSARTAN 97 MG-103 MG TABLET PO SCH ×2 (10:00→17:53)
[2017-11-06] MEDS: FAMOTIDINE 20 MG TAB PO SCH (10:00)
[2017-11-06] MEDS: HYDROcodone/APAP 5-325MG 1 EACH TAB PO PRN ×2 (10:00→16:00)
[2017-11-06] MEDS: METOPROLOL TARTRATE 25 MG TAB PO SCH ×2 (10:00→17:53)
[2017-11-06] MEDS: LORazepam 0.5 MG TAB PO PRN ×2 (10:00→20:24)
--- NOTE | 2017-11-06 11:18 | ECHOF ---
Referral Reason:Heart Failure MEASUREMENTS -------- HEIGHT: 162.6 cm WEIGHT: 78.9 kg BP: 97 /60 RVIDd: 4.2 cm (< 3.3) IVSd: 1.2 cm (0.6 - 1.1) LVIDd: 4.5 cm (3.9 - 5.3) LVPWd: 0.9 cm (0.6 - 1.1) IVSs: 1.4 cm LVIDs: 3.5 cm LVPWs: 1.5 cm LA Diam: 4.6 cm (2.7 - 3.8) MV EXCURSION: 21.866 mm (> 18.000) MV EF SLOPE: 109 mm/s (70 - 150) EPSS: 0.2 cm MV E Kyler: 1.14 m/s MV DecT: 116 ms MV A Kyler: 0.28 m/s MV E/A Ratio: 4.10 RAP: 15.00 mmHg RVSP: 62.45 mmHg FINDINGS -------- The left ventricular size is normal. There is mild concentric left ventricular hypertrophy. Overa ll left ventricular systolic function is mild-moderately impaired with, an EF between 40 - 45 %. An terseptal Hypokinesis Inferior Hypokinesis Septal Hypokinesis The right ventricular septal wall is flattened in diastole and systole which is consistent with righ t ventricular volume and pressure overload. The left atrium is moderately dilated. The right atrial size is normal. 1.5MG OF DEFINITY UTLIZED: 2 OR MORE WALL SEGMENTS NOT VISUALIZED. There is mild aortic valve sclerosis. There is no evidence of aortic regurgitation. Mild mitral regurgitation is present. Moderate tricuspid regurgitation present. There is moderate pulmonary hypertension. The right tessa tricular systolic pressure, as measured by Doppler, is 62.45mmHg. Trace/mild (physiologic) pulmonic regurgitation. There is a small, generalized pericardial effusion present. Small Pleural Effusion. CONCLUSIONS -------- 1. The left ventricular size is normal. 2. There is mild concentric left ventricular hypertrophy. 3. Overall left ventricular systolic function is mild-moderately impaired with, an EF between 40 - 45 %. 4. Anterseptal Hypokinesis 5. Inferior Hypokinesis 6. Septal Hypokinesis 7. The right ventricular septal wall is flattened in diastole and systole which is consistent with r ight ventricular volume and pressure overload. 8. The left atrium is moderately dilated. 9. 1.5MG OF DEFINITY UTLIZED: 2 OR MORE WALL SEGMENTS NOT VISUALIZED. 10. There is mild aortic valve sclerosis. 11. Mild mitral regurgitation is present. 12. Moderate tricuspid regurgitation present. 13. There is severe pulmonary hypertension. 14. The right ventricular systolic pressure, as measured by Doppler, is 62.45mmHg. 15. Trace/mild (physiologic) pulmonic regurgitation. 16. There is a small, generalized pericardial effusion present. 17. Small Pleural Effusion. MATHEMATICS LECTURER: Deanna Kelley RDCS
[2017-11-06 12:11] LABS: Glucose,Whole Blood 187 mg/dL (75-99)
[2017-11-06] MEDS: FUROSEMIDE 10 MG/ML 4 ML VIAL IV SCH (12:18)
[2017-11-06] MEDS: ASPIRIN 81 MG PO SCH (12:18)
[2017-11-06 12:21] LABS: Creatine Kinase MB 1.7 ng/mL (0.0-2.4); Troponin I <0.012 ng/mL (0.000-0.034)
--- NOTE | 2017-11-06 12:31 | P.CNPUL ---
History of Present Illness Consult date: 11/06/17 Requesting physician: Iglesia Ramos Reason for consult: dyspnea Chief complaint: Shortness of breath History of present illness: This is a very pleasant 62-year-old female patient who follows with Dr. Chika Lloyd as her primary care physician. She has a history of chronic atrial fibrillation/flutter, systolic congestive heart failure with estimated ejection fraction of 35% , restless leg syndrome, fibromyalgia, hypertension, hyperlipidemia, osteoarthritis, hypothyroidism, severe tricuspid regurgitation, depression. She also has a significant history of end-stage chronic obstructive pulmonary disease and chronic hypoxic respiratory failure. She has had multiple admissions for both exacerbations of CHF and COPD. She was most recently discharged on 10/01/2017 to [facility]. She had been doing fairly well for approximately one month when she presented to the emergency room yesterday with complaints of increasing shortness of breath, cough and congestion. He was also having complaints of left foot pain and swelling and being treated for cellulitis. Negative DVT. Her chest x-ray reveals some mild congestive heart failure with pleural effusions. ProBNP 10, 700. Troponins negative 2. Creatinine 1.40. There is also noted cardiomegaly. No clear evidence of pneumonia. No leukocytosis. Has been afebrile. Hemodynamically stable. Maintaining O2 saturations in the low 90s on 4 L/m per nasal cannula. Review of Systems 14 point review of system was conducted. All negative other than as mentioned in the HPI. Past Medical History Past Medical History: Atrial Fibrillation, Coronary Artery Disease (CAD), Heart Failure, COPD, Fibromyalgia, GERD/Reflux, Hyperlipidemia, Hypertension, Myocardial Infarction (DC), Osteoarthritis (OA), Renal Disease, Syncope, Thyroid Disorder Additional Past Medical History / Comment(s): COPD and the patient is on home O2 at 3 L nasal cannula , congestion heart failure history of atrial fibrillation/flutter/atrial tachycardia with previous cardiac ablation, fibromyalgia, hyperlipidemia, hypertension, colonic polyps, previous coronary artery disease and reported history of myocardial infarction, hypothyroidism, degenerative arthritis, "non ischemiccardio myopathy", and severe peripheral vascular disease, severe epistaxis from multiple anticoagulants. Plavix has been discontinued per Dr. Payton. Patient to be kept on Eliquis and aspirin, PVOD and previous stent in the LLE Last Myocardial Infarction Date:: 2013 History of Any Multi-Drug Resistant Organisms: ESBL Date of last positivie culture/infection: 09/24/17 MDRO Source:: ESBL URINE Past Surgical History: Bowel Resection, Cardiac Ablation, Section, Heart Catheterization, Tubal Ligation Additional Past Surgical History / Comment(s): Bowel resection, cardiac ablation for atrial flutter, , cardiac catheterization, tubal ligation , stent left leg Past Anesthesia/Blood Transfusion Reactions: Motion Sickness Additional Past Anesthesia/Blood Transfusion Reaction / Comment(s): CLAUSTROPHOBIA Past Psychological History: Anxiety, Depression Additional Psychological History / Comment(s): PT LIVES ALONE IN APT THAT HAS 4 STEPS TO ENTER. PT IS INDEPENDANT HAS WALKER TO USE WHEN NEEDED, HOME 02, NEBULIZER, BSC, shower chair. 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 HAS 1 INDOOR CAT.received [facility] home care nurse Smoking Status: Former smoker Past Alcohol Use History: None Reported Additional Past Alcohol Use History / Comment(s): Patient smoked for 40 years one and a half packs per day and quit in October 2016. She lives in an apartment by herself and has a cat in the home. She is also on home O2, she has a walker, nebulizer bedside commode, shower chair. 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 Past Drug Use History: None Reported - Past Family History Mother Family Medical History: Cancer Father Family Medical History: Coronary Artery Disease (CAD) Medications and Allergies Home Medications Medication Instructions Recorded Confirmed Type Levalbuterol Tartrate [Xopenex Hfa 2 puff INHALATION 01/21/16 11/05/17 History Inhaler] RT-Q6H@00,06,,18 Aspirin EC [Ecotrin Low Dose] 81 mg PO HS 12/14/16 11/05/17 History Famotidine [Pepcid] 20 mg PO DAILY 12/14/16 11/05/17 History Melatonin 5 mg PO HS 12/14/16 11/05/17 History Atorvastatin [Lipitor] 80 mg PO HS 01/15/17 11/05/17 History Ferrous Sulfate [Iron (65 MG 325 mg PO BID 01/15/17 11/05/17 History Elemental)] Formoterol Fumarate [Perforomist] 20 mcg INHALATION RT-BID@0800,1700 01/15/17 History Budesonide [Pulmicort] 0.5 mg INHALATION RT-BID@1000,1400 06/18/17 11/05/17 History Escitalopram [Lexapro] 20 mg PO DAILY 06/18/17 11/05/17 History Ipratropium-Albuterol Nebulize 3 ml INHALATION RT-BID PRN 06/18/17 11/05/17 History [Duoneb 0.5 mg-3 mg/3 ml Soln] Levalbuterol Nebulized [Xopenex 1.25 mg INHALATION RT-TID 08/09/17 11/05/17 History Nebulized] Sacubitril/Valsartan [Entresto 97 1 tab PO BID@0800,1700 08/09/17 11/05/17 History mg-103 mg Tablet] Amiodarone [Cordarone] 200 mg PO DAILY #30 tab 09/03/17 11/05/17 Rx Bisacodyl [Dulcolax] 10 mg PO DAILY PRN tablet. 09/03/17 11/05/17 Rx Bisacodyl 10 mg RECTAL DAILY PRN 09/24/17 11/05/17 History HYDROcodone/APAP 5-325MG [[place] 1 tab PO Q6HR PRN 09/24/17 11/05/17 History 5-325] LORazepam [Ativan] 0.5 mg PO Q8H PRN 09/24/17 11/05/17 History Magnesium Hydroxide [Milk of 2,400 mg PO DAILY PRN 09/24/17 11/05/17 History Magnesia] Metoprolol Tartrate [Lopressor] 25 mg PO BID@0800,1700 09/24/17 11/05/17 History Na Phos,M-B/Na Phos,Di-Ba [Fleet 133 ml RECTAL DAILY PRN 09/24/17 11/05/17 History Adult] Apixaban [Eliquis] 2.5 mg PO BID #30 tablet 10/01/17 11/05/17 Rx Torsemide [Demadex] 20 mg PO DAILY #30 tab 10/01/17 11/05/17 Rx Acetaminophen [Tylenol] 650 mg PO Q4H PRN 11/05/17 11/05/17 History Cephalexin [Keflex] 500 mg PO Q12HR 11/05/17 11/05/17 History Colloidal Oatmeal [Eucerin Eczema 1 applic TOPICAL BID 11/05/17 11/05/17 History Relief] Furosemide [Lasix] 40 mg PO MOTH 11/05/17 11/05/17 History Levothyroxine Sodium [Synthroid] 137 mcg PO DAILY 11/05/17 11/05/17 History Loperamide [Imodium] 2 mg PO QID PRN 11/05/17 11/05/17 History Allergies Allergy/AdvReac Type Severity Reaction Status Date / Time ciprofloxacin HCl Allergy Severe Anaphylaxis Verified 11/05/17 22:53 [From Cipro] budesonide [From Symbicort] AdvReac Rapid Verified 11/05/17 22:53 Heart Rate formoterol fumarate AdvReac Rapid Verified 11/05/17 22:53 [From Symbicort] Heart Rate Physical Exam Vitals: Vital Signs Temp Pulse Pulse Resp BP BP Pulse Ox 11/06/17 09:35 98.2 F 87 20 96/59 92 L 11/06/17 08:47 92 11/06/17 08:26 88 11/06/17 08:25 88 11/06/17 08:23 84 11/06/17 04:00 94 18 87/58 97 11/06/17 03:50 91 11/06/17 03:39 84 11/06/17 02:32 97.7 F 97 16 97/60 93 L 11/06/17 01:37 97.7 F 97 16 97/60 83 L 11/06/17 01:00 84 18 111/66 99 11/06/17 00:31 82 23 111/66 100 11/06/17 00:21 86 11/06/17 00:07 76 11/05/17 22:43 97.2 F L 100 26 H 102/60 92 L Intake and Output 11/05/17 11/06/17 11/06/17 22:59 06:59 14:59 Intake Total 100 250 Output Total 450 Balance -350 250 Intake: IV 100 250 Ampicillin-Sulbactam 3 gm 100 In Sodium Chloride 0.9% 100 ml @ 100 mls/hr IVPB ONCE STA Rx#:[id number] Vancomycin 1,500 mg In 250 Sodium Chloride 0.9% 250 ml @ 125 mls/hr IVPB ONCE ONE Rx#:[id number] Output: Urine 450 Other: Voiding Method Bedpan Bedside Commode # Voids 2 Weight 78.925 kg 78.8 kg GENERAL EXAM: Alert, active, fairly comfortable in no apparent distress. HEAD: Normocephalic. EYES: Normal reaction of pupils, equal size. Proptosis NOSE: Clear with pink turbinates. THROAT: No erythema or exudates. NECK: No masses, no JVD. CHEST: No chest wall deformity. LUNGS: Equal air entry with Tikosyn the posterior bases. Slight end expiratory wheeze. Diminished.. CVS: S1 and S2 normal with an audible murmur, irregular rhythm. ABDOMEN: No hepatosplenomegaly, normal bowel sounds, no guarding or rigidity. SPINE: No scoliosis or deformity SKIN: No rashes left foot and ankle with slight edema redness and tenderness. CENTRAL NERVOUS SYSTEM: No focal deficits, tone is normal in all 4 extremities. EXTREMITIES: There is peripheral edema. No clubbing, no cyanosis. Peripheral pulses are intact. Results - Laboratory Findings CBC and BMP: 11/05/17 22:59 11/05/17 22:59 PT/INR, D-dimer PT 12.5 sec (9.0-12.0) H 11/05/17 22:59 INR 1.3 (<1.2) H 11/05/17 22:59 Abnormal lab findings: Abnormal Labs 11/05/17 11/05/17 11/05/17 22:59 22:59 22:59 RBC 3.48 L Hgb 11.2 L MCV 111.1 H MCHC 28.9 L RDW 16.1 H Lymphocytes # (Manual) 0.78 L Monocytes # (Manual) 1.14 H Myelocytes # (Manual) 0.06 H PT 12.5 H INR 1.3 H Chloride 90 L Carbon Dioxide 41 H* BUN 28 H Creatinine 1.40 H Glucose 132 H POC Glucose (mg/dL) AST 44 H Albumin 3.4 L 11/06/17 06:15 RBC Hgb MCV MCHC RDW Lymphocytes # (Manual) Monocytes # (Manual) Myelocytes # (Manual) PT INR Chloride Carbon Dioxide BUN Creatinine Glucose POC Glucose (mg/dL) 138 H AST Albumin - Diagnostic Findings Chest x-ray: image reviewed Assessment and Plan Assessment: Impression: #1 Acute exacerbation of combined systolic and diastolic congestive heart failure. Ejection fraction 40-45%. #2 Acute exacerbation of advanced oxygen dependent chronic obstructive pulmonary disease. FEV1 30% of predicted. #3 Acute on chronic hypoxic respiratory failure secondary to above. On oxygen at 2 L in the outpatient setting. #4 Moderate to severe pulmonary hypertension. #5 Chronic atrial fibrillation, anticoagulated with Eliquis. #6 Coronary artery disease, history of. #7 Hypothyroidism. #8 Degenerative arthritis. #9 Fibromyalgia. #10 Hyperlipidemia. #11 Poor overall functional performance based on the above-mentioned multiple comorbidities. Plan: The patient was seen and evaluated by Dr. Gonzalez. Her chest x-ray and labs were reviewed. We'll continue with her current medications including bronchodilators, IV Solu-Medrol and antibiotics in the form of vancomycin and Unasyn. She remains on diuretics. Eliquis for anticoagulation. We will increase her activity as tolerated. We'll continue to follow and make further recommendations based on her clinical stable. I, the cosigning physician, have performed a history and physical examination on the patient. Lung sounds crackles in the bilateral posterior bases. Faint end expiratory wheeze. Diminished throughout.. Maintaining good O2 saturations in the 90s on 4 L/m per nasal cannula. I have discussed the assessment and plan of care with my nurse practitioner, Jennifer Montes. I attest to the above consultation as dictated by her. Time with Patient: Greater than 30
[2017-11-06 17:01] LABS: Glucose,Whole Blood 190 mg/dL (75-99)
[2017-11-06] MEDS: ATORVASTATIN 80 MG TAB PO SCH (20:25)
[2017-11-06] MEDS: BUDESONIDE 0.5 MG/2 ML NEBU INHALATION SCH (20:28)
--- NOTE | 2017-11-06 20:32 | HP ---
HISTORY AND PHYSICAL DATE OF ADMISSION: 11/06/2017 PRESENTING COMPLAINT: Short of breath. HISTORY OF PRESENTING COMPLAINT: This is a very pleasant 62-year-old patient of Dr. George Lloyd. The patient is a resident of [facility]. Chronic stable medical conditions include atrial fibrillation, coronary artery disease, fibromyalgia, GERD, hyperlipidemia, hypertension, osteoarthritis, renal disease, is on home oxygen 3L, fibromyalgia, hypertension, peripheral artery disease. The patient presents with progressive shortness of breath, some lower extremity edema, orthopnea, slight cough, wheezing minimal sputum, some bouts of coughing, minimal sputum production, admitted for the same. The patient is felt to have predominant CHF exacerbation and element of COPD exacerbation. REVIEW OF SYSTEMS: CONSTITUTIONAL: Tired. HEENT: None. RESPIRATORY: As above. CARDIOVASCULAR: As above. GASTROINTESTINAL: None. GENITOURINARY: None. MUSCULOSKELETAL: Some pain in joints. DERMATOLOGICAL: Slight bruising, some redness of the right lower extremity. HEMATOLOGICAL: None. LYMPHATIC: None. PSYCHIATRY: Some anxiety. NEUROLOGICAL: None. PAST MEDICAL HISTORY: Congestive heart failure, EF 30%-35%, atrial flutter/fibrillation, COPD, restless leg syndrome, fibromyalgia, primary osteoarthritis, respiratory failure on 3L oxygen, hypothyroid, medical debility, nonischemic cardiomyopathy, peripheral artery disease. PAST SURGICAL HISTORY: Bowel resection, , cardiac catheterization, cardiac ablation for atrial flutter, peripheral stent. PSYCH HISTORY: Anxiety, depression. SOCIAL HISTORY: Currently a resident of [facility]. 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 FAMILY HISTORY: Cancer, type unknown. HOME MEDICATIONS: 1. Milk of magnesia 2400 mg daily p.r.n. 2. Imodium 2 mg q.i.d. p.r.n. 3. [place] 5 1 tablet every 6 hours p.r.n. 4. Adult Fleet 133 mL rectal daily p.r.n. 5. Ativan 0.5 q.8h p.r.n. 6. DuoNeb b.i.d. p.r.n. 7. Dulcolax 10 mg p.o. daily p.r.n. 8. Xopenex HFA 2 puffs every 6 hours. 9. Xopenex 1.25 mg inhalation t.i.d. 10.Tylenol. 11.Lopressor 25 p.o. b.i.d. 12.Keflex 500 mg p.o. q.12. 13.Perforomist 20 mcg inhalation b.i.d. 14.Iron 325 p.o. b.i.d. 15.Eucerin topical b.i.d. 16.Entresto 97/103, 1 tablet b.i.d. 17.Pulmicort 0.5 inhalation b.i.d. 18.Demadex 20 mg p.o. daily. 19.Synthroid 137 mcg a day. 20.Pepcid 20 mg p.o. daily. 21.Eliquis 2.5 p.o. b.i.d. 22.Melatonin 5 mg q.h.s. 23.Lasix 40 mg Mondays and . 24.Lexapro 20 mg p.o. daily. 25.Lipitor 80 mg q.h.s. 26.Aspirin 81 mg p.o. q.h.s. 27.Cordarone 200 mg p.o. daily. ALLERGIES: To CIPRO, SYMBICORT. EXAMINATION: VITAL SIGNS: On presentation, temperature 97.2, pulse 100, respirations 26, blood pressure 102/68 pulse ox 92% on 2L. GENERAL APPEARANCE: Average built, sitting up, short of breath. EYES: Pupils equal, conjunctivae normal. Some exophthalmos. HEENT: External nose, ears normal. Oral cavity normal. NECK: JVD raised. Mass not palpable. RESPIRATORY: Effort increased. LUNGS: Diminished breath sounds. Prolonged expiration. Some wheezing. CARDIOVASCULAR: First and second sounds normal. Some edema. ABDOMEN: Soft, nontender. Liver and spleen not palpable. LYMPHATIC: No lymph node palpable in neck or axillae. PSYCHIATRY: Alert and oriented x3. Mood and affect anxious-appearing. NEUROLOGICAL: Pupils equal. Cranial nerves grossly intact. Power and sensation grossly intact. EXTREMITIES: Some cellulitis, right lower extremity below the knee. INVESTIGATIONS: White count 6, hemoglobin 11.2, platelets 206. Potassium 4.4, BUN 28, creatinine 1.40, patient's BUN and creatinine were 27/1.31 on 10/01/2017. ProBNP is 10,700. Chest x- ray shows cardiomegaly, pleural effusion, venous prominence with fluid in the fissures. EKG shows atrial fibrillation, rate controlled. 2D echocardiogram shows some wall motion abnormalities, EF 40%-45%, moderate tricuspid regurgitation, severe pulmonary hypertension. ASSESSMENT: 1. Acute on chronic congestive heart failure exacerbation from systolic dysfunction, ejection fraction 40%-45%. 2. Acute chronic obstructive pulmonary disease exacerbation in an ex-smoker. 3. Moderate tricuspid regurgitation, nonrheumatic. 4. Severe secondary pulmonary hypertension secondary to chronic obstructive pulmonary disease. 5. Persistent atrial flutter/fibrillation chronically on Eliquis. 6. Restless legs syndrome, chronic. 7. Chronic fibromyalgia. 8. Primary osteoarthritis multiple joints, bilateral. 9. Chronic hypoxic respiratory failure from underlying chronic obstructive pulmonary disease on 3L oxygen at home. 10.Acute hypoxic respiratory failure from chronic obstructive pulmonary disease, present on admission. 11.Hypothyroid. 12.Medical debility. 13.Gait dysfunction, uses a walker. 14.Peripheral arterial disease with prior history of stent. 15.Congestive heart failure from nonischemic cardiomyopathy. 16.Acute right lower extremity cellulitis. 17.CODE STATUS FULL. PLAN: Home medications are resumed. Patient is put on IV Unasyn, IV Lasix nebulized bronchodilators, IV steroids. Care was discussed with the patient. Questions were answered. Consultation was made to Dr. Hogan from cardiology and Dr. Gonzalez from pulmonary. MMGERMAIN / FATMATA: [id number] /
[2017-11-06 20:55] LABS: Glucose,Whole Blood 191 mg/dL (75-99)
[2017-11-06] MEDS: INSULIN ASPART 100 UNIT/ML 1 ML 10 ML VIAL SQ SCH (23:36)
[2017-11-06] MEDS: methylPREDNISolone SOD SUCCI 40 MG/ML 1 ML VIAL IV SCH (23:40)
[2017-11-07] MEDS: IPRATROPIUM-ALBUTEROL 3 ML NEB INHALATION SCH ×6 (03:49→23:35)
[2017-11-07 04:20] LABS: Hemoglobin A1C 4.9 % (4.0-6.0)
[2017-11-07 06:02] LABS: Glucose,Whole Blood 139 mg/dL (75-99)
[2017-11-07 06:27] LABS: Anisocytosis Slight; Basophils % (A) 0 %; Eosinophils % (A) 0 %; HCT 38.7 % (34.0-46.0); Hypochromasia Marked; Lymphocytes # (A) 0.3 k/uL (1.0-4.8); Lymphocytes % (A) 6 %; MCH 31.7 pg (25.0-35.0); MCHC 28.5 g/dL (31.0-37.0); MCV 111.1 fL (80.0-100.0); Macrocytosis Marked; Mean Platelet Volume 8.9; Monocytes # (A) 0.3 k/uL (0-1.0); Monocytes % (A) 5 %; Neutrophils # (A) 5.2 k/uL (1.3-7.7); Neutrophils % (A) 88 %; Platelet Count 205 k/uL (150-450); RBC 3.49 m/uL (3.80-5.40); RDW 16.5 % (11.5-15.5); WBC 5.9 k/uL (3.8-10.6)
[2017-11-07] MEDS: MELATONIN 5 MG TABLET PO SCH ×2 (06:28→22:07)
[2017-11-07] MEDS: NON-FORMULARY DRUG (Colloidal Oatmeal [Eucerin Eczema Relief] 1 APPLIC) TOPICAL SCH ×2 (06:28→09:48)
[2017-11-07 06:29] LABS: Calcium 8.7 mg/dL (8.4-10.2)
[2017-11-07] MEDS: VANCOMYCIN 1,500 MG in SODIUM CHLORIDE 0.9% 250 ML IVPB SCH (07:22)
[2017-11-07] MEDS: BUDESONIDE 0.5 MG/2 ML NEBU INHALATION SCH ×2 (08:12→20:03)
[2017-11-07] MEDS: FORMOTEROL FUMARATE 20 MCG/2 ML NEBU INHALATION SCH ×2 (08:12→19:06)
[2017-11-07] MEDS: INSULIN ASPART 100 UNIT/ML 1 ML 10 ML VIAL SQ SCH ×5 (08:29→21:59)
[2017-11-07] MEDS: methylPREDNISolone SOD SUCCI 40 MG/ML 1 ML VIAL IV SCH ×2 (08:30→16:40)
[2017-11-07] MEDS: METOPROLOL TARTRATE 25 MG TAB PO SCH ×2 (08:30→16:43)
[2017-11-07] MEDS: LEVOTHYROXINE 137 MCG TAB PO SCH (08:30)
[2017-11-07] MEDS: SACUBITRIL/VALSARTAN 97 MG-103 MG TABLET PO SCH ×2 (08:31→16:43)
[2017-11-07] MEDS: ESCITALOPRAM 20 MG TAB PO SCH (08:32)
[2017-11-07] MEDS: APIXABAN 2.5 MG TABLET PO SCH ×2 (08:32→21:58)
[2017-11-07] MEDS: AMIODARONE 200 MG TAB PO SCH (08:32)
[2017-11-07] MEDS: ASPIRIN 81 MG PO SCH (08:32)
[2017-11-07] MEDS: FERROUS SULFATE 325 MG TAB PO SCH ×2 (08:32→21:58)
[2017-11-07] MEDS: FAMOTIDINE 20 MG TAB PO SCH (08:32)
[2017-11-07] MEDS: LORazepam 0.5 MG TAB PO PRN ×2 (08:46→16:39)
[2017-11-07] MEDS ORDERED: ASPIRIN 325 MG TAB PO SCH (09:00)
[2017-11-07] MEDS: AMPICILLIN-SULBACTAM 3 GM in SODIUM CHLORIDE 0.9% 100 ML IVPB SCH ×4 (09:47→22:09)
--- NOTE | 2017-11-07 10:40 | P.PN ---
Subjective Progress Note Date: 11/07/17 Principal diagnosis: Acute exacerbation of chronic obstructive disease, acute exacerbation of combined systolic and diastolic congestive heart failure. This is a very pleasant 62-year-old female patient who follows with Dr. Chika Lloyd as her primary care physician. She has a history of chronic atrial fibrillation/flutter, systolic congestive heart failure with estimated ejection fraction of 35% , restless leg syndrome, fibromyalgia, hypertension, hyperlipidemia, osteoarthritis, hypothyroidism, severe tricuspid regurgitation, depression. She also has a significant history of end-stage chronic obstructive pulmonary disease and chronic hypoxic respiratory failure. She has had multiple admissions for both exacerbations of CHF and COPD. She was most recently discharged on 10/01/2017 to [facility]. She had been doing fairly well for approximately one month when she presented to the emergency room yesterday with complaints of increasing shortness of breath, cough and congestion. He was also having complaints of left foot pain and swelling and being treated for cellulitis. Negative DVT. Her chest x-ray reveals some mild congestive heart failure with pleural effusions. ProBNP 10, 700. Troponins negative 2. Creatinine 1.40. There is also noted cardiomegaly. No clear evidence of pneumonia. No leukocytosis. Has been afebrile. Hemodynamically stable. Maintaining O2 saturations in the low 90s on 4 L/m per nasal cannula. The patient is seen again today 11/07/2017 in follow-up on the selective care unit. She is currently awake and alert in no acute distress. She is actually laying flat in bed without significant dyspnea. She does get quite short of breath with minimal exertion however. She is maintaining good O2 saturations in the 90s on 3 L/m per nasal cannula. She's been afebrile. Hemodynamically stable. No leukocytosis. Hemoglobin 11.0. Bicarb 44. Creatinine 1.33. She is currently in a -500 balance. She remains on Lasix 40 mg IV every 12 hours. Objective - Vital Signs Vital signs: Vital Signs Temp 97.0 F L 11/07/17 04:00 Pulse 92 11/07/17 08:42 Resp 16 11/07/17 04:00 BP 95/53 11/07/17 04:00 Pulse Ox 90 L 11/07/17 04:00 Intake & Output 11/06/17 11/07/17 11/07/17 18:59 06:59 18:59 Intake Total 650 Output Total 500 500 Balance 150 -500 Weight 80 kg Intake: IV 450 Ampicillin-Sulbactam 3 gm 200 In Sodium Chloride 0.9% 100 ml @ 100 mls/hr IVPB ONCE STA Rx#:[id number] Vancomycin 1,500 mg In 250 Sodium Chloride 0.9% 250 ml @ 125 mls/hr IVPB ONCE ONE Rx#:[id number] Oral 200 Output: Urine 500 500 Other: Voiding Method Bedside Commode Bedside Commode # Voids 2 - Exam GENERAL EXAM: Alert, active, comfortable in no apparent distress. HEAD: Normocephalic. EYES: Normal reaction of pupils, equal size. Ptosis. NOSE: Clear with pink turbinates. THROAT: No erythema or exudates. NECK: No masses, no JVD. CHEST: No chest wall deformity. LUNGS: Equal air entry with crackles in the posterior bases. Faint end expiratory wheeze. Diminished. CVS: S1 and S2 normal with no audible murmur, regular rhythm. ABDOMEN: No hepatosplenomegaly, normal bowel sounds, no guarding or rigidity. SPINE: Kyphosis SKIN: Some redness and edema of the left lower extremity. CENTRAL NERVOUS SYSTEM: No focal deficits, tone is normal in all 4 extremities. EXTREMITIES: There is trace peripheral edema. No clubbing, no cyanosis. Peripheral pulses are intact. - Labs CBC & Chem 7: 11/07/17 05:49 11/07/17 05:49 Labs: Abnormal Lab Results - Last 24 Hours (Table) 11/06/17 11/06/17 11/06/17 Range/Units 12:08 16:57 20:54 RBC (3.80-5.40) m/uL Hgb (11.4-16.0) gm/dL MCV (80.0-100.0) fL MCHC (31.0-37.0) g/dL RDW (11.5-15.5) % Lymphocytes # (1.0-4.8) k/uL Chloride (98-107) mmol/L Carbon Dioxide (22-30) mmol/L BUN (7-17) mg/dL Creatinine (0.52-1.04) mg/dL Glucose (74-99) mg/dL POC Glucose (mg/dL) 187 H 190 H 191 H (75-99) mg/dL 11/07/17 11/07/17 11/07/17 Range/Units 05:49 05:49 05:56 RBC 3.49 L (3.80-5.40) m/uL Hgb 11.0 L (11.4-16.0) gm/dL MCV 111.1 H (80.0-100.0) fL MCHC 28.5 L (31.0-37.0) g/dL RDW 16.5 H (11.5-15.5) % Lymphocytes # 0.3 L (1.0-4.8) k/uL Chloride 91 L (98-107) mmol/L Carbon Dioxide 44 H* (22-30) mmol/L BUN 31 H (7-17) mg/dL Creatinine 1.33 H (0.52-1.04) mg/dL Glucose 138 H (74-99) mg/dL POC Glucose (mg/dL) 139 H (75-99) mg/dL Microbiology - Last 24 Hours (Table) 11/05/17 22:59 Blood Culture - Preliminary Blood No Growth after 24 hours Assessment and Plan Assessment: Impression: #1 Acute exacerbation of combined systolic and diastolic congestive heart failure. Ejection fraction 40-45%. #2 Acute exacerbation of advanced oxygen dependent chronic obstructive pulmonary disease. FEV1 30% of predicted. #3 Acute on chronic hypoxic respiratory failure secondary to above. On oxygen at 2 L in the outpatient setting. #4 Moderate to severe pulmonary hypertension. #5 Chronic atrial fibrillation, anticoagulated with Eliquis. #6 Coronary artery disease, history of. #7 Hypothyroidism. #8 Degenerative arthritis. #9 Fibromyalgia. #10 Hyperlipidemia. #11 Cellulitis of the left lower extremity. #12 Poor overall functional performance based on the above-mentioned multiple comorbidities. Plan: The patient was seen and evaluated by Dr. Gonzalez. We'll continue with her current medications including bronchodilators, IV Solu-Medrol and antibiotics in the form of vancomycin and Unasyn. She remains on diuretics. Eliquis for anticoagulation. We will increase her activity as tolerated. We'll continue to follow and make further recommendations based on her clinical stable. I, the cosigning physician, have performed a history and physical examination on the patient. Lung sounds crackles in the bilateral posterior bases. Faint end expiratory wheeze. Diminished throughout.. Maintaining good O2 saturations in the 90s on 3 L/m per nasal cannula. I have discussed the assessment and plan of care with my nurse practitioner, Jennifer Montes. I attest to the above consultation as dictated by her.
[2017-11-07 11:39] LABS: Glucose,Whole Blood 162 mg/dL (75-99)
[2017-11-07] MEDS: FUROSEMIDE 10 MG/ML 4 ML VIAL IV SCH ×2 (12:56)
[2017-11-07] MEDS: HYDROcodone/APAP 5-325MG 1 EACH TAB PO PRN ×2 (15:00→21:58)
--- NOTE | 2017-11-07 15:31 | P.PN ---
Subjective Progress Note Date: 11/07/17 Principal diagnosis: Shortness of breath This is a pleasant 62-year-old female with known history of end-stage COPD, hypertension, hyperlipidemia, peripheral vascular disease with prior peripheral stenting, nonischemic cardiomyopathy, chronic persistent atrial fibrillation, prior cardiac ablation hypertension, hyperlipidemia, who is currently at [facility] for rehab, she presented to the hospital with a 2-3 day duration of worsening shortness of breath. Overall the patient states she's been doing fairly well. Patient does have a productive cough, positive PND and orthopnea. Positive peripheral edema. EKG on admission showed atrial fibrillation with an incomplete right bundle branch block pattern. Venous duplex study was negative for DVT in the left leg. Chest x-ray shows new mild congestive heart failure with pleural effusions as compared with prior exam. White blood cell count is normal, hemoglobin 11.2, platelet count 206. Sodium 140, potassium 4.4, chloride 90, CO2 41, BUN 28, creatinine 1.4. BNP level 10, 700., troponin 0.015, 0.012. TSH level 10.6. She was initiated on IV Lasix in the emergency room, she was also initiated on IV steroids and antibiotics. At the time of my examination this morning, she is sitting up in bed, continues to feel quite short of breath, significant wheezing. She also has evidence of significant redness and cellulitis in her left lower extremity. 11/07/2017 Patient seen and examined, overall states she is still short of breath, however she lies flat in bed and appears to be somewhat comfortable. Continues to have significant bilateral peripheral edema. Echo cardiac exam with Doppler study was repeated here which reveals an ejection fraction of 40-45%. Patient is diuresing, her weight and indicates that it is up 2 kg today. BUN 31, creatinine 1.3, hemoglobin 11.0. We will continue Lasix 40 mg twice a day IV. Objective - Vital Signs Vital signs: Vital Signs Temp 97.0 F L 11/07/17 04:00 Pulse 94 11/07/17 15:15 Resp 16 11/07/17 04:00 BP 95/53 11/07/17 04:00 Pulse Ox 90 L 11/07/17 04:00 Intake & Output 11/06/17 11/07/17 11/07/17 18:59 06:59 18:59 Intake Total 650 240 Output Total 500 500 400 Balance 150 -500 -160 Weight 80 kg 80 kg Intake: IV 450 Ampicillin-Sulbactam 3 gm 200 In Sodium Chloride 0.9% 100 ml @ 100 mls/hr IVPB ONCE STA Rx#:[id number] Vancomycin 1,500 mg In 250 Sodium Chloride 0.9% 250 ml @ 125 mls/hr IVPB ONCE ONE Rx#:[id number] Oral 200 240 Output: Urine 500 500 400 Other: Voiding Method Bedside Commode Bedside Commode # Voids 2 # Bowel Movements 1 - Exam PHYSICAL EXAMINATION: HEENT: Head is atraumatic, normocephalic. Pupils equal, round. Neck is supple. There is elevated jugular venous pressure. HEART EXAMINATION: Heart S1 and S2 irregularly irregular CHEST EXAMINATION: Lungs reveal decreased air exchange throughout, scattered coarse wheezing throughout. ABDOMEN: Soft, nontender. Bowel sounds are heard. No organomegaly noted. EXTREMITIES:[ 1+ peripheral pulses with 1+ evidence of peripheral edema more in the left lower extremity than the right, evidence of cellulitis in the left lower extremity NEUROLOGIC patient is awake, alert and oriented -3. - Labs CBC & Chem 7: 11/07/17 05:49 11/07/17 05:49 Labs: Abnormal Lab Results - Last 24 Hours (Table) 11/06/17 11/06/17 11/07/17 Range/Units 16:57 20:54 05:49 RBC 3.49 L (3.80-5.40) m/uL Hgb 11.0 L (11.4-16.0) gm/dL MCV 111.1 H (80.0-100.0) fL MCHC 28.5 L (31.0-37.0) g/dL RDW 16.5 H (11.5-15.5) % Lymphocytes # 0.3 L (1.0-4.8) k/uL Chloride (98-107) mmol/L Carbon Dioxide (22-30) mmol/L BUN (7-17) mg/dL Creatinine (0.52-1.04) mg/dL Glucose (74-99) mg/dL POC Glucose (mg/dL) 190 H 191 H (75-99) mg/dL 11/07/17 11/07/17 11/07/17 Range/Units 05:49 05:56 11:37 RBC (3.80-5.40) m/uL Hgb (11.4-16.0) gm/dL MCV (80.0-100.0) fL MCHC (31.0-37.0) g/dL RDW (11.5-15.5) % Lymphocytes # (1.0-4.8) k/uL Chloride 91 L (98-107) mmol/L Carbon Dioxide 44 H* (22-30) mmol/L BUN 31 H (7-17) mg/dL Creatinine 1.33 H (0.52-1.04) mg/dL Glucose 138 H (74-99) mg/dL POC Glucose (mg/dL) 139 H 162 H (75-99) mg/dL Microbiology - Last 24 Hours (Table) 11/05/17 22:59 Blood Culture - Preliminary Blood No Growth after 24 hours Assessment and Plan Plan: Assessment and plan #1 systolic congestive heart failure acute on chronic #2 exacerbation of COPD #3 known history of moderate to severe peripheral vascular disease with prior stenting #4 chronic persistent atrial fibrillation, on Eliquis for anticoagulation, patient did have prior ablation. #5 acute on chronic kidney injury #6 nonischemic cardiomyopathy #7 hypertension #8 hyperlipidemia #9 moderate to severe COPD Plan Echocardiogram with Doppler study revealed an ejection fraction of 40-45%. We will continue current dose of IV Lasix, monitoring intake and output along with daily weights and daily lytes BUN and creatinine. DNP note has been reviewed, I agree with a documented findings and plan of care. Patient was seen and examined.
--- NOTE | 2017-11-07 16:13 | P.HPIM ---
History of Present Illness H&P Date: 11/06/17 Chief Complaint: increasing shortness of breath HISTORY OF PRESENT ILLNESS: 62-year-old female patient of Dr. Chika Lloyd with chronic stable medical conditions that include atrial fibrillation, coronary artery disease, heart failure, COPD, fibromyalgia, GERD, hyperlipidemia, hypertension, osteoarthritis , thyroid disorder who has been at [facility] for rehab and presents to the emergency department with increasing shortness of breath. States she was unable to finish his complete sentence, short of breath at rest, had a cough no sputum production, afebrile. Also noted increasing pain and swelling and redness to right lower extremity concerning for cellulitis. REVIEW OF SYSTEMS GEN.: [ Tired] EYES: [None] HEENT: [None] NECK: [None] RESPIRATORY: [ shortness of breath] CARDIOVASCULAR: [Chest pain yesterday] GASTROINTESTINAL: [None] GENITOURINARY: [None] MUSCULOSKELETAL: [Back pain] LYMPHATICS: [None] HEMATOLOGICAL: [None] PSYCHIATRY: [None] NEUROLOGICAL: [None] PAST MEDICAL HISTORY Past medical history: Atrial fibrillation, coronary artery disease, heart failure, COPD, fibromyalgia, GERD, hyperlipidemia, hypertension, myocardial infarction, osteoarthritis, renal disease, syncope, thyroid disorder, COPD home oxygen 3 L nasal cannula, Past surgical history: Bowel resection, cardiac ablation, section, heart catheterization, tubal ligation. 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 FAMILY HISTORY: Father: : colon cancer Mother: : ALLERGIES: CIPROFLOXACIN, BUDESONIDE, FORMOTEROL HOME MEDICATION: Magnesium hydroxide 2400 mg by mouth daily when necessary Loperamide 2 mg by mouth 4 times a day when necessary Hydrocodone 5-325 mg one tablet by mouth every 6 hours when necessary Fleet enema 133 mL rectal daily when necessary Lorazepam 0.5 mg by mouth every 8 hours when necessary Ipratropium albuterol 3 mL inhalation twice a day when necessary bisacodyl 10 mg by mouth daily when necessary bisacodyl 10 mg rectal daily when necessary Xopenex HFA 2 puffs inhalation twice a day Xopenex 1.25 mg inhalation 3 times a day Acetaminophen 650 mg by mouth every 4 hours when necessary Metoprolol 25 mg by mouth twice a day [id number] mg by mouth every 12 hours Perforomist 20 g twice a day inhalation Ferrous sulfate 325 mg by mouth twice a day Eucerin eczema relief 1 application topical twice a day Entresto 97 mg-103 mg tablet 1 tablet by mouth twice a day Pulmicort 0.5 mg inhalation twice a day Torsemide 20 mg by mouth daily Levothyroxine sodium 137 g by mouth daily Famotidine 20 mg by mouth daily Eliquis 2.5 mg by mouth twice a day Melatonin 5 mg by mouth at bedtime Furosemide 40 mg by mouth Sunday and Lexapro 20 mg by mouth daily Atorvastatin 80 mg by mouth at bedtime Aspirin 81 mg by mouth at bedtime Amiodarone 20 mg by mouth daily VITAL SIGNS: [Temperature 97.7, pulse 97, respiratory rate 16, blood pressure 97 /60, oxygen saturation 93% on 4 L.. BMI noted] GENERAL: [Average built, sitting up, short of breath anxious appearing conversational dyspnea]. EYES: [Pupils equal. Conjunctiva aye]l. HEENT: [External appearance of nose and ears normal, oral cavity grossly normal] . NECK: [JVD raised; masses not palpable]. HEART: [First and second heart sounds are normal; moderate edema]. LUNGS:[ Respiratory rate increased; nourished with expiratory wheezing and coarse rhonchi to auscultation]. ABDOMEN: [Soft, nontender, liver spleen not palpable, no masses palpable]. LYMPHATICS: [No lymph nodes palpable in the axilla and neck]. PSYCH: [Alert and oriented x3; mood and affect aye]l. NEUROLOGICAL: [Cranial nerves grossly intact; no facial asymmetry, power and sensation grossly intact]. INTEGUMENT: Right lower extremity and foot noted to have redness and erythema tender to palpation INVESTIGATIONS: LABS: Hemoglobin 11.2, INR 1.3, chloride 90, carbon dioxide 41, BUN 28, creatinine 1.40, BNP 10,700, troponin 0.015, less than 0.012 Accu-Cheks noted, Left lower extremity venous Doppler: Negative for DVT ASSESSMENT: -acute on chronic congestive heart failure exacerbation from systolic dysfunction, ejection fraction 40-45%. -Acute chronic obstructive pulmonary disease exacerbation and an ex-smoker. -moderate tricuspid regurgitation, nonrheumatic. -Severe secondary pulmonary hypertension secondary to chronic obstructive pulmonary disease. -Persistent atrial fibrillation ablation flutter chronically on Eliquis. -Restless leg syndrome. Chronic. -Chronic fibromyalgia. -Primary osteoporosis multiple joints. Bilateral. -Chronic hypoxic respiratory failure from underlying chronic obstructive pulmonary disease on 3 L of oxygen at home. -Acute hypoxic respiratory failure from chronic obstructive pulmonary disease. Present on admission. -Hypothyroidism. -Medical debility. -Gait dysfunction uses a walker. -Peripheral arterial disease with prior history of stent. -Congestive heart failure from nonischemic cardiomyopathy. -acute left lower extremity cellulitis. -obesity body mass index 30.3 -CODE STATUS FULL PLAN: Home medications reordered, cardiology, pulmonology consulted, DVT prophylaxis covered by Eliquis, antibiotics for suspected cellulitis of the right leg as well as Silvadene and Kerlix wraps. Plan of care discussed with the patient at bedside she is in agreement. We will follow closely. PIANO MECHANIC STATEMENT: Patient was seen and examined by nurse practitioner Cathie Monk and all elements of the case were discussed with attending Dr. Ramos. Past Medical History Past Medical History: Atrial Fibrillation, Coronary Artery Disease (CAD), Heart Failure, COPD, Fibromyalgia, GERD/Reflux, Hyperlipidemia, Hypertension, Myocardial Infarction (IN), Osteoarthritis (OA), Renal Disease, Syncope, Thyroid Disorder Additional Past Medical History / Comment(s): COPD and the patient is on home O2 at 3 L nasal cannula , congestion heart failure history of atrial fibrillation/flutter/atrial tachycardia with previous cardiac ablation, fibromyalgia, hyperlipidemia, hypertension, colonic polyps, previous coronary artery disease and reported history of myocardial infarction, hypothyroidism, degenerative arthritis, "non ischemiccardio myopathy", and severe peripheral vascular disease, severe epistaxis from multiple anticoagulants. Plavix has been discontinued per Dr. Payton. Patient to be kept on Eliquis and aspirin, PVOD and previous stent in the LLE Last Myocardial Infarction Date:: 2013 History of Any Multi-Drug Resistant Organisms: ESBL Date of last positivie culture/infection: 09/24/17 MDRO Source:: ESBL URINE Past Surgical History: Bowel Resection, Cardiac Ablation, Section, Heart Catheterization, Tubal Ligation Additional Past Surgical History / Comment(s): Bowel resection, cardiac ablation for atrial flutter, , cardiac catheterization, tubal ligation , stent left leg Past Anesthesia/Blood Transfusion Reactions: Motion Sickness Additional Past Anesthesia/Blood Transfusion Reaction / Comment(s): CLAUSTROPHOBIA Past Psychological History: Anxiety, Depression Additional Psychological History / Comment(s): PT LIVES ALONE IN APT THAT HAS 4 STEPS TO ENTER. PT IS INDEPENDANT HAS WALKER TO USE WHEN NEEDED, HOME 02, NEBULIZER, BSC, shower chair. 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 HAS 1 INDOOR CAT.received [facility] care nurse Smoking Status: Former smoker Past Alcohol Use History: None Reported Additional Past Alcohol Use History / Comment(s): Patient smoked for 40 years one and a half packs per day and quit in October 2016. She lives in an apartment by herself and has a cat in the home. She is also on home O2, she has a walker, nebulizer bedside commode, shower chair. 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 Past Drug Use History: None Reported - Past Family History Mother Family Medical History: Cancer Father Family Medical History: Coronary Artery Disease (CAD) Medications and Allergies Home Medications Medication Instructions Recorded Confirmed Type Levalbuterol Tartrate [Xopenex Hfa 2 puff INHALATION 01/21/16 11/05/17 History Inhaler] RT-Q6H@00,06,,18 Aspirin EC [Ecotrin Low Dose] 81 mg PO HS 12/14/16 11/05/17 History Famotidine [Pepcid] 20 mg PO DAILY 12/14/16 11/05/17 History Melatonin 5 mg PO HS 12/14/16 11/05/17 History Atorvastatin [Lipitor] 80 mg PO HS 01/15/17 11/05/17 History Ferrous Sulfate [Iron (65 MG 325 mg PO BID 01/15/17 11/05/17 History Elemental)] Formoterol Fumarate [Perforomist] 20 mcg INHALATION RT-BID@0800,1700 01/15/17 History Budesonide [Pulmicort] 0.5 mg INHALATION RT-BID@1000,1400 06/18/17 11/05/17 History Escitalopram [Lexapro] 20 mg PO DAILY 06/18/17 11/05/17 History Ipratropium-Albuterol Nebulize 3 ml INHALATION RT-BID PRN 06/18/17 11/05/17 History [Duoneb 0.5 mg-3 mg/3 ml Soln] Levalbuterol Nebulized [Xopenex 1.25 mg INHALATION RT-TID 08/09/17 11/05/17 History Nebulized] Sacubitril/Valsartan [Entresto 97 1 tab PO BID@0800,1700 08/09/17 11/05/17 History mg-103 mg Tablet] Amiodarone [Cordarone] 200 mg PO DAILY #30 tab 09/03/17 11/05/17 Rx Bisacodyl [Dulcolax] 10 mg PO DAILY PRN tablet.dr 09/03/17 11/05/17 Rx Bisacodyl 10 mg RECTAL DAILY PRN 09/24/17 11/05/17 History HYDROcodone/APAP 5-325MG [[place] 1 tab PO Q6HR PRN 09/24/17 11/05/17 History 5-325] LORazepam [Ativan] 0.5 mg PO Q8H PRN 09/24/17 11/05/17 History Magnesium Hydroxide [Milk of 2,400 mg PO DAILY PRN 09/24/17 11/05/17 History Magnesia] Metoprolol Tartrate [Lopressor] 25 mg PO BID@0800,1700 09/24/17 11/05/17 History Na Phos,M-B/Na Phos,Di-Ba [Fleet 133 ml RECTAL DAILY PRN 09/24/17 11/05/17 History Adult] Apixaban [Eliquis] 2.5 mg PO BID #30 tablet 10/01/17 11/05/17 Rx Torsemide [Demadex] 20 mg PO DAILY #30 tab 10/01/17 11/05/17 Rx Acetaminophen [Tylenol] 650 mg PO Q4H PRN 11/05/17 11/05/17 History Cephalexin [Keflex] 500 mg PO Q12HR 11/05/17 11/05/17 History Colloidal Oatmeal [Eucerin Eczema 1 applic TOPICAL BID 11/05/17 11/05/17 History Relief] Furosemide [Lasix] 40 mg PO MOTH 11/05/17 11/05/17 History Levothyroxine Sodium [Synthroid] 137 mcg PO DAILY 11/05/17 11/05/17 History Loperamide [Imodium] 2 mg PO QID PRN 11/05/17 11/05/17 History Allergies Allergy/AdvReac Type Severity Reaction Status Date / Time ciprofloxacin HCl Allergy Severe Anaphylaxis Verified 11/05/17 22:53 [From Cipro] budesonide [From Symbicort] AdvReac Rapid Verified 11/05/17 22:53 Heart Rate formoterol fumarate AdvReac Rapid Verified 11/05/17 22:53 [From Symbicort] Heart Rate Physical Exam Vitals: Vital Signs Temp Pulse Pulse Resp BP BP Pulse Ox 11/06/17 04:00 94 18 87/58 97 11/06/17 03:50 91 11/06/17 03:39 84 11/06/17 02:32 97.7 F 97 16 97/60 93 L 11/06/17 01:37 97.7 F 97 16 97/60 83 L 11/06/17 01:00 84 18 111/66 99 11/06/17 00:31 82 23 111/66 100 11/06/17 00:21 86 11/06/17 00:07 76 11/05/17 22:43 97.2 F L 100 26 H 102/60 92 L Intake and Output 11/05/17 11/06/17 11/06/17 22:59 06:59 14:59 Output Total 450 Balance -450 Output: Urine 450 Other: Voiding Method Bedpan # Voids 2 Weight 78.925 kg 78.8 kg Results CBC & Chem 7: 11/07/17 05:49 11/07/17 05:49 Labs: Abnormal Lab Results - Last 24 Hours (Table) 11/05/17 11/05/17 11/05/17 Range/Units 22:59 22:59 22:59 RBC 3.48 L (3.80-5.40) m/uL Hgb 11.2 L (11.4-16.0) gm/dL MCV 111.1 H (80.0-100.0) fL MCHC 28.9 L (31.0-37.0) g/dL RDW 16.1 H (11.5-15.5) % Lymphocytes # (Manual) 0.78 L (1.0-4.8) k/uL Monocytes # (Manual) 1.14 H (0-1.0) k/uL Myelocytes # (Manual) 0.06 H (0) k/uL PT 12.5 H (9.0-12.0) sec INR 1.3 H (<1.2) Chloride 90 L (98-107) mmol/L Carbon Dioxide 41 H* (22-30) mmol/L BUN 28 H (7-17) mg/dL Creatinine 1.40 H (0.52-1.04) mg/dL Glucose 132 H (74-99) mg/dL POC Glucose (mg/dL) (75-99) mg/dL AST 44 H (14-36) U/L Albumin 3.4 L (3.5-5.0) g/dL 11/06/17 Range/Units 06:15 RBC (3.80-5.40) m/uL Hgb (11.4-16.0) gm/dL MCV (80.0-100.0) fL MCHC (31.0-37.0) g/dL RDW (11.5-15.5) % Lymphocytes # (Manual) (1.0-4.8) k/uL Monocytes # (Manual) (0-1.0) k/uL Myelocytes # (Manual) (0) k/uL PT (9.0-12.0) sec INR (<1.2) Chloride (98-107) mmol/L Carbon Dioxide (22-30) mmol/L BUN (7-17) mg/dL Creatinine (0.52-1.04) mg/dL Glucose (74-99) mg/dL POC Glucose (mg/dL) 138 H (75-99) mg/dL AST (14-36) U/L Albumin (3.5-5.0) g/dL Thrombosis Risk Factor Assmnt - Choose All That Apply Each Risk Factor Represents 2 Points: Age 61-74 years Thrombosis Risk Factor Assessment Total Risk Factor Score: 2 Thrombosis Risk Factor Assessment Level: Low Risk
[2017-11-07 16:59] LABS: Glucose,Whole Blood 125 mg/dL (75-99)
--- NOTE | 2017-11-07 18:17 | P.PN ---
Progress Note - Text Progress Note Date: 11/07/17 DATE OF SERVICE: 11/07/2017 PRESENTING COMPLAINT: Increasing shortness of breath HISTORY OF PRESENT ILLNESS: 82-year-old female who presented with increasing shortness of breath, unable to finish sentences short of breath at rest positive cough production, afebrile.Also had some redness and swelling concerning for cellulitis to the leftlowerextremity.Admittedforthesame. INTERVAL HISTORY: 11/07/2017: lying in bed continues to be short of breath at rest and with minimal exertion. Continues to have conversational dyspnea, has a cough no sputum afebrile. Left lower extremity with Silvadene cream and Curlex wrap.appetite low, up with assistance, last BM11/07/2017: REVIEW OF SYSTEMS: Done for constitutional ,cardiovascular, GI, pulmonary with relevant findings as above. CURRENT MEDICATIONS Tylenol, [place], DuoNeb, ampicillin, Apixaban,Dulcolax, Pulmicort, Lexapro, Pepcid, Feosol, Perforomist, Lasix, sliding scale insulin, Synthroid,Imodium, Ativan, milk of magnesia, melatonin, Solu-Medrol, Lopressor,entresto, Silvadene cream, fleets enema. Vancomycin. PHYSICAL EXAM VITAL SIGNS: temperature 97.0, pulse 92, respiratory rate 16, blood pressure 95/53, oxygen saturation 90% on 4 L. GENERAL APPEARANCE: Lying in bed, not in distress. HEENT: Normocephalic, Pupils equal.has exophthalmos, Conjunctiva normal. JVD raised. Mass not palpable.: RESPIRATORY: Respiratory effort increased. Lungs diminished with expiratory wheezing to auscultation. CARDIOVASCULAR: First and second sounds normal.mild edema. ABDOMEN: Soft. Liver and spleen not palpable. No tenderness. No mass palpable. PSYCHIATRY: Alert and oriented x3. Mood and affect normal. INVESTIGATIONS: hemoglobin 11.0, chloride 91, carbon dioxide 44, BUN 31, creatinine 1.33,Accu- Cheks noted ASSESSMENT: -acute on chronic congestive heart failure exacerbation from systolic dysfunction, from non ischemic cardiomyopathy ejection fraction 40-45%, improving -Acute chronic obstructive pulmonary disease exacerbation in an ex-smoker, improving -moderate tricuspid regurgitation, nonrheumatic. -Severe secondary pulmonary hypertension secondary to chronic obstructive pulmonary disease. -Persistent atrial fibrillation/flutter chronically on Eliquis. -Restless leg syndrome, chronic. -Chronic fibromyalgia. -Primary osteoarthritis multiple joints, bilateral. -Chronic hypoxic respiratory failure from underlying chronic obstructive pulmonary disease on 3 L of oxygen at home. -Acute hypoxic respiratory failure from chronic obstructive pulmonary disease present on admission. -Hypothyroidism. -Medical debility. -Gait dysfunction uses a walker. -Peripheral arterial disease with prior history of stent. -Acute left lower extremity cellulitis. -CODE STATUS FULL. PLAN: continue IV Lasix, nebulized bronchodilators, IV Solu-Medrol and antibiotics in the form of vancomycin and Unasyn, Eliquis for anticoagulation.Plan of care discussed at the bedside patient is agreeable, we will follow closely. FLOW SPECIALIST statement: Patient was seen and examined by nurse practitioner Cathie Monk and all elements of the case discussed with attending Dr. Ramos
--- NOTE | 2017-11-07 20:24 | PN ---
PROGRESS NOTE DATE OF SERVICE: 11/07/2017. ATTENDING NOTE: This patient was seen and examined by me. I discussed the case with the nurse practitioner Ms. Monk. Patient admitted with CHF exacerbation. Breathing is better. Tolerating a diet. Some wheezing is present. PHYSICAL EXAMINATION: Temperature 97, pulse 90, respiration 18, blood pressure 95/53, pulse ox 90% on 4 L. LUNGS: Decreased breath sounds. Some edema is present. PSYCH: Alert and oriented x3. Mood anxious-appearing. INVESTIGATIONS: White count 5.9, potassium 4.0, BUN 33, creatinine 1.33. ASSESSMENT: 1. Acute on chronic congestive heart failure exacerbation from systolic dysfunction from non-ischemic cardiomyopathy, improving. 2. Other multiple medical problems. Continue current medication and treatment plan. The patient is on IV Unasyn for the left lower extremity cellulitis. The patient remains on IV Lasix, IV Solu-Medrol, Silvadene cream and also on vancomycin. MMODL / IJN: [id number] /
[2017-11-07 20:58] LABS: Glucose,Whole Blood 210 mg/dL (75-99)
[2017-11-07] MEDS: ATORVASTATIN 80 MG TAB PO SCH (21:58)
[2017-11-08] MEDS: methylPREDNISolone SOD SUCCI 40 MG/ML 1 ML VIAL IV SCH ×4 (00:11→23:34)
[2017-11-08] MEDS: FUROSEMIDE 10 MG/ML 4 ML VIAL IV SCH ×2 (00:11→12:47)
[2017-11-08] MEDS: NON-FORMULARY DRUG (Colloidal Oatmeal [Eucerin Eczema Relief] 1 APPLIC) TOPICAL SCH ×3 (00:12→20:39)
[2017-11-08] MEDS: LORazepam 0.5 MG TAB PO PRN ×3 (00:17→15:58)
[2017-11-08] MEDS: IPRATROPIUM-ALBUTEROL 3 ML NEB INHALATION PRN (04:37)
[2017-11-08 06:05] LABS: Glucose,Whole Blood 148 mg/dL (75-99)
[2017-11-08] MEDS: VANCOMYCIN 1,500 MG in SODIUM CHLORIDE 0.9% 250 ML IVPB SCH (06:59)
[2017-11-08 07:10] LABS: Calcium 8.5 mg/dL (8.4-10.2); Potassium 3.9 mmol/L (3.5-5.1)
[2017-11-08] MEDS: FORMOTEROL FUMARATE 20 MCG/2 ML NEBU INHALATION SCH ×3 (08:03→18:52)
[2017-11-08] MEDS: IPRATROPIUM-ALBUTEROL 3 ML NEB INHALATION SCH ×4 (08:03→18:52)
[2017-11-08] MEDS: BUDESONIDE 0.5 MG/2 ML NEBU INHALATION SCH ×2 (08:03→18:52)
[2017-11-08] MEDS: INSULIN ASPART 100 UNIT/ML 1 ML 10 ML VIAL SQ SCH ×4 (09:49→20:38)
[2017-11-08] MEDS: LEVOTHYROXINE 137 MCG TAB PO SCH (09:49)
[2017-11-08] MEDS: ESCITALOPRAM 20 MG TAB PO SCH (09:50)
[2017-11-08] MEDS: FERROUS SULFATE 325 MG TAB PO SCH ×2 (09:50→20:38)
[2017-11-08] MEDS: FAMOTIDINE 20 MG TAB PO SCH (09:50)
[2017-11-08] MEDS: ASPIRIN 81 MG PO SCH (09:51)
[2017-11-08] MEDS: METOPROLOL TARTRATE 25 MG TAB PO SCH ×2 (09:51→17:02)
[2017-11-08] MEDS: AMIODARONE 200 MG TAB PO SCH (09:51)
[2017-11-08] MEDS: APIXABAN 2.5 MG TABLET PO SCH ×2 (09:51→20:38)
[2017-11-08] MEDS: SACUBITRIL/VALSARTAN 97 MG-103 MG TABLET PO SCH ×2 (09:51→17:02)
[2017-11-08] MEDS: AMPICILLIN-SULBACTAM 3 GM in SODIUM CHLORIDE 0.9% 100 ML IVPB SCH ×4 (10:00→23:34)
--- NOTE | 2017-11-08 11:34 | P.PN ---
Subjective Progress Note Date: 11/08/17 Principal diagnosis: Acute exacerbation of chronic obstructive disease, acute exacerbation of combined systolic and diastolic congestive heart failure. This is a very pleasant 62-year-old female patient who follows with Dr. Chika Lloyd as her primary care physician. She has a history of chronic atrial fibrillation/flutter, systolic congestive heart failure with estimated ejection fraction of 35% , restless leg syndrome, fibromyalgia, hypertension, hyperlipidemia, osteoarthritis, hypothyroidism, severe tricuspid regurgitation, depression. She also has a significant history of end-stage chronic obstructive pulmonary disease and chronic hypoxic respiratory failure. She has had multiple admissions for both exacerbations of CHF and COPD. She was most recently discharged on 10/01/2017 to [facility]. She had been doing fairly well for approximately one month when she presented to the emergency room yesterday with complaints of increasing shortness of breath, cough and congestion. He was also having complaints of left foot pain and swelling and being treated for cellulitis. Negative DVT. Her chest x-ray reveals some mild congestive heart failure with pleural effusions. ProBNP 10, 700. Troponins negative 2. Creatinine 1.40. There is also noted cardiomegaly. No clear evidence of pneumonia. No leukocytosis. Has been afebrile. Hemodynamically stable. Maintaining O2 saturations in the low 90s on 4 L/m per nasal cannula. The patient is seen again today 11/07/2017 in follow-up on the selective care unit. She is currently awake and alert in no acute distress. She is actually laying flat in bed without significant dyspnea. She does get quite short of breath with minimal exertion however. She is maintaining good O2 saturations in the 90s on 3 L/m per nasal cannula. She's been afebrile. Hemodynamically stable. No leukocytosis. Hemoglobin 11.0. Bicarb 44. Creatinine 1.33. She is currently in a -500 balance. She remains on Lasix 40 mg IV every 12 hours. The patient is seen again today 11/08/2017 in follow-up on the selective care unit. She is awake and alert in no acute distress. She is breathing easier today as compared to yesterday but not quite back to her baseline. Blood culture reveals no growth to date. A curb stable at 44. Creatinine 1.34. She remains in a -700 mL balance. Continue on Lasix 40 IV every 12 hours. He is maintaining good O2 saturations in the upper 90s on 3 L/m per nasal cannula. She's been afebrile. Hemodynamically stable. Objective - Vital Signs Vital signs: Vital Signs Temp 96.5 F L 11/08/17 08:00 Pulse 102 H 11/08/17 11:22 Resp 18 11/08/17 08:00 BP 124/65 11/08/17 08:00 Pulse Ox 96 11/08/17 08:03 Intake & Output 11/07/17 11/08/17 11/08/17 18:59 06:59 18:59 Intake Total 240 340 Output Total 400 1200 Balance -160 -860 Weight 80 kg 80.1 kg 80.1 kg Intake: Intake, IV Titration 100 Amount Ampicillin-Sulbactam 3 gm 100 In Sodium Chloride 0.9% 100 ml @ 100 mls/hr IVPB QID [facility]OSELIN Rx#:[id number] Oral 240 240 Output: Urine 400 1200 Other: Voiding Method Bedside Commode Bedside Commode Bedside Commode # Voids 1 # Bowel Movements 1 1 - Exam GENERAL EXAM: Alert, active, comfortable in no apparent distress. HEAD: Normocephalic. EYES: Normal reaction of pupils, equal size. Ptosis. NOSE: Clear with pink turbinates. THROAT: No erythema or exudates. NECK: No masses, no JVD. CHEST: No chest wall deformity. LUNGS: Equal air entry with crackles in the posterior bases. Faint end expiratory wheeze. Diminished. CVS: S1 and S2 normal with no audible murmur, regular rhythm. ABDOMEN: No hepatosplenomegaly, normal bowel sounds, no guarding or rigidity. SPINE: Kyphosis SKIN: Some redness and edema of the left lower extremity. CENTRAL NERVOUS SYSTEM: No focal deficits, tone is normal in all 4 extremities. EXTREMITIES: There is trace peripheral edema. No clubbing, no cyanosis. Peripheral pulses are intact. - Labs CBC & Chem 7: 11/07/17 05:49 11/08/17 05:43 Labs: Abnormal Lab Results - Last 24 Hours (Table) 11/07/17 11/07/17 11/07/17 Range/Units 11:37 16:55 20:57 Chloride (98-107) mmol/L Carbon Dioxide (22-30) mmol/L BUN (7-17) mg/dL Creatinine (0.52-1.04) mg/dL Glucose (74-99) mg/dL POC Glucose (mg/dL) 162 H 125 H 210 H (75-99) mg/dL 11/08/17 11/08/17 Range/Units 05:43 06:04 Chloride 90 L (98-107) mmol/L Carbon Dioxide 44 H* (22-30) mmol/L BUN 44 H (7-17) mg/dL Creatinine 1.34 H (0.52-1.04) mg/dL Glucose 130 H (74-99) mg/dL POC Glucose (mg/dL) 148 H (75-99) mg/dL Microbiology - Last 24 Hours (Table) 11/05/17 22:59 Blood Culture - Preliminary Blood No Growth after 48 hours Assessment and Plan Assessment: Impression: #1 Acute exacerbation of combined systolic and diastolic congestive heart failure. Ejection fraction 40-45%. #2 Acute exacerbation of advanced oxygen dependent chronic obstructive pulmonary disease. FEV1 30% of predicted. #3 Acute on chronic hypoxic respiratory failure secondary to above. On oxygen at 2 L in the outpatient setting. #4 Moderate to severe pulmonary hypertension. #5 Chronic atrial fibrillation, anticoagulated with Eliquis. #6 Coronary artery disease, history of. #7 Hypothyroidism. #8 Degenerative arthritis. #9 Fibromyalgia. #10 Hyperlipidemia. #11 Cellulitis of the left lower extremity. #12 Poor overall functional performance based on the above-mentioned multiple comorbidities. Plan: The patient was seen and evaluated by Dr. Gonzalez. We will repeat a chest x-ray in the a.m. We'll continue with her current medications including bronchodilators, IV Solu-Medrol and antibiotics in the form of vancomycin and Unasyn. She remains on diuretics. Eliquis for anticoagulation. We will increase her activity as tolerated. We'll continue to follow and make further recommendations based on her clinical stable. I, the cosigning physician, have performed a history and physical examination on the patient. Lung sounds crackles in the bilateral posterior bases. Faint end expiratory wheeze. Diminished throughout.. Maintaining good O2 saturations in the 90s on 3 L/m per nasal cannula. I have discussed the assessment and plan of care with my nurse practitioner, Jennifer Montes. I attest to the above consultation as dictated by her.
[2017-11-08 11:35] LABS: Glucose,Whole Blood 192 mg/dL (75-99)
--- NOTE | 2017-11-08 11:52 | P.PN ---
Progress Note - Text Progress Note Date: 11/08/17 DATE OF SERVICE: 11/08/2017 PRESENTING COMPLAINT: Increasing shortness of breath HISTORY OF PRESENT ILLNESS: 82-year-old female who presented with increasing shortness of breath, unable to finish sentences short of breath at rest positive cough production, afebrile.Also had some redness and swelling concerning for cellulitis to the leftlowerextremity.Admittedforthesame. INTERVAL HISTORY: 11/08/2017: Lying in bed, shortness of breath improving continues to be short of breath with minimal exertion. Mild conversational dyspnea, coarse cough, some sputum production, afebrile. Left lower extremity warm red tender dressed with Silvadene cream and Curlex wrap. Appetite is low, up with assistance. Last BM 11/07/2017. Remains on IV Lasix, negative fluid balance of 1520 mL. 11/07/2017: lying in bed continues to be short of breath at rest and with minimal exertion. Continues to have conversational dyspnea, has a cough no sputum afebrile. Left lower extremity with Silvadene cream and Curlex wrap and ampicillin .appetite low, up with assistance, last BM11/07/2017: REVIEW OF SYSTEMS: Done for constitutional ,cardiovascular, GI, pulmonary with relevant findings as above. CURRENT MEDICATIONS Tylenol, [place], DuoNeb, ampicillin, Apixaban,Dulcolax, Pulmicort, Lexapro, Pepcid, Feosol, Perforomist, Lasix, sliding scale insulin, Synthroid,Imodium, Ativan, milk of magnesia, melatonin, Solu-Medrol, Lopressor,entresto, Silvadene cream, fleets enema. Vancomycin. PHYSICAL EXAM VITAL SIGNS: Temperature 96.5, pulse 97, respiratory rate 18, blood pressure 124/65, oxygen saturation 96% on 3 L GENERAL APPEARANCE: Lying flat in bed, not in distress. HEENT: Normocephalic, Pupils equal.has exophthalmos, Conjunctiva normal. JVD raised. Mass not palpable.: RESPIRATORY: Respiratory effort increased. Lungs diminished with inspiratory andexpiratory wheezing to auscultation. CARDIOVASCULAR: First and second sounds normal.mild edema. ABDOMEN: Soft. Liver and spleen not palpable. No tenderness. No mass palpable. PSYCHIATRY: Alert and oriented x3. Mood and affect mildly anxious INVESTIGATIONS: sodium 141, potassium 3.9, chloride 90, carbon dioxide 44, BUN 44 creatinine 1.34, Accu-Cheks noted. ASSESSMENT: -acute on chronic congestive heart failure exacerbation from systolic dysfunction, from non ischemic cardiomyopathy ejection fraction 40-45%, improving -Acute chronic obstructive pulmonary disease exacerbation in an ex-smoker, improving -moderate tricuspid regurgitation, nonrheumatic. -Severe secondary pulmonary hypertension secondary to chronic obstructive pulmonary disease. -Persistent atrial fibrillation/flutter chronically on Eliquis. -Restless leg syndrome, chronic. -Chronic fibromyalgia. -Primary osteoarthritis multiple joints, bilateral. -Chronic hypoxic respiratory failure from underlying chronic obstructive pulmonary disease on 3 L of oxygen at home. -Acute hypoxic respiratory failure from chronic obstructive pulmonary disease present on admission. -Hypothyroidism. -Medical debility. -Gait dysfunction uses a walker. -Peripheral arterial disease with prior history of stent. -Acute left lower extremity cellulitis. -CODE STATUS FULL. PLAN: continue IV Lasix, nebulized bronchodilators, IV Solu-Medrol and antibiotics in the form of vancomycin and Unasyn, Eliquis for anticoagulation.Plan of care discussed at the bedside patient is agreeable, we will follow closely. Discharge planning next 24-48 hours. 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 Ramos
--- NOTE | 2017-11-08 14:14 | P.PN ---
Subjective Progress Note Date: 11/08/17 Principal diagnosis: Shortness of breath This is a pleasant 62-year-old female with known history of end-stage COPD, hypertension, hyperlipidemia, peripheral vascular disease with prior peripheral stenting, nonischemic cardiomyopathy, chronic persistent atrial fibrillation, prior cardiac ablation hypertension, hyperlipidemia, who is currently at [facility] for rehab, she presented to the hospital with a 2-3 day duration of worsening shortness of breath. Overall the patient states she's been doing fairly well. Patient does have a productive cough, positive PND and orthopnea. Positive peripheral edema. EKG on admission showed atrial fibrillation with an incomplete right bundle branch block pattern. Venous duplex study was negative for DVT in the left leg. Chest x-ray shows new mild congestive heart failure with pleural effusions as compared with prior exam. White blood cell count is normal, hemoglobin 11.2, platelet count 206. Sodium 140, potassium 4.4, chloride 90, CO2 41, BUN 28, creatinine 1.4. BNP level 10, 700., troponin 0.015, 0.012. TSH level 10.6. She was initiated on IV Lasix in the emergency room, she was also initiated on IV steroids and antibiotics. At the time of my examination this morning, she is sitting up in bed, continues to feel quite short of breath, significant wheezing. She also has evidence of significant redness and cellulitis in her left lower extremity. 11/07/2017 Patient seen and examined, overall states she is still short of breath, however she lies flat in bed and appears to be somewhat comfortable. Continues to have significant bilateral peripheral edema. Echo cardiac exam with Doppler study was repeated here which reveals an ejection fraction of 40-45%. Patient is diuresing, her weight and indicates that it is up 2 kg today. BUN 31, creatinine 1.3, hemoglobin 11.0. We will continue Lasix 40 mg twice a day IV. Objective - Vital Signs Vital signs: Vital Signs Temp 96.6 F L 11/08/17 12:00 Pulse 79 11/08/17 12:00 Resp 18 11/08/17 12:00 BP 149/72 11/08/17 12:00 Pulse Ox 97 11/08/17 12:00 Intake & Output 11/07/17 11/08/17 11/08/17 18:59 06:59 18:59 Intake Total 240 340 Output Total 400 1200 300 Balance -160 -860 -300 Weight 80 kg 80.1 kg 80.1 kg Intake: Intake, IV Titration 100 Amount Ampicillin-Sulbactam 3 gm 100 In Sodium Chloride 0.9% 100 ml @ 100 mls/hr IVPB QID [facility] Rx#:[id number] Oral 240 240 Output: Urine 400 1200 300 Other: Voiding Method Bedside Commode Bedside Commode Bedside Commode # Voids 1 # Bowel Movements 1 1 1 - Labs CBC & Chem 7: 11/07/17 05:49 11/08/17 05:43 Labs: Abnormal Lab Results - Last 24 Hours (Table) 11/07/17 11/07/17 11/08/17 Range/Units 16:55 20:57 05:43 Chloride 90 L (98-107) mmol/L Carbon Dioxide 44 H* (22-30) mmol/L BUN 44 H (7-17) mg/dL Creatinine 1.34 H (0.52-1.04) mg/dL Glucose 130 H (74-99) mg/dL POC Glucose (mg/dL) 125 H 210 H (75-99) mg/dL 11/08/17 11/08/17 Range/Units 06:04 11:22 Chloride (98-107) mmol/L Carbon Dioxide (22-30) mmol/L BUN (7-17) mg/dL Creatinine (0.52-1.04) mg/dL Glucose (74-99) mg/dL POC Glucose (mg/dL) 148 H 192 H (75-99) mg/dL Microbiology - Last 24 Hours (Table) 11/05/17 22:59 Blood Culture - Preliminary Blood No Growth after 48 hours Assessment and Plan Plan: Assessment and plan #1 systolic congestive heart failure acute on chronic #2 exacerbation of COPD #3 known history of moderate to severe peripheral vascular disease with prior stenting #4 chronic persistent atrial fibrillation, on Eliquis for anticoagulation, patient did have prior ablation. #5 acute on chronic kidney injury #6 nonischemic cardiomyopathy #7 hypertension #8 hyperlipidemia #9 moderate to severe COPD Plan Echocardiogram with Doppler study revealed an ejection fraction of 40-45%. We will continue current dose of IV Lasix, monitoring intake and output along with daily weights and daily lytes BUN and creatinine. DNP note has been reviewed, I agree with a documented findings and plan of care. Patient was seen and examined.
[2017-11-08 16:37] LABS: Glucose,Whole Blood 143 mg/dL (75-99)
[2017-11-08 20:22] LABS: Glucose,Whole Blood 168 mg/dL (75-99)
[2017-11-08] MEDS: HYDROcodone/APAP 5-325MG 1 EACH TAB PO PRN (20:37)
[2017-11-08] MEDS: MELATONIN 5 MG TABLET PO SCH (20:38)
[2017-11-08] MEDS: ATORVASTATIN 80 MG TAB PO SCH (20:38)
[2017-11-09] MEDS: FUROSEMIDE 10 MG/ML 4 ML VIAL IV SCH (01:23)
--- NOTE | 2017-11-09 05:43 | PN ---
PROGRESS NOTE DATE OF SERVICE: 11/08/2017 ATTENDING NOTE: Patient was seen and examined by me. I did discuss with nurse practitioner, Ms. Monk. Breathing continues to improve. ON EXAMINATION: LUNGS: Decreased breath sounds. Some wheezing. Decreased edema. ASSESSMENT: Acute congestive heart failure exacerbation, improving. The patient is on IV Lasix, IV Solu-Medrol. Care was discussed with the patient. Will follow with Cardiology and Pulmonary. MMODL / IJN: [id number] /
[2017-11-09 05:56] LABS: Glucose,Whole Blood 173 mg/dL (75-99)
[2017-11-09] MEDS: INSULIN ASPART 100 UNIT/ML 1 ML 10 ML VIAL SQ SCH ×4 (06:40→21:29)
[2017-11-09] MEDS: VANCOMYCIN 1,500 MG in SODIUM CHLORIDE 0.9% 250 ML IVPB SCH (06:40)
[2017-11-09 06:41] LABS: Calcium 8.7 mg/dL (8.4-10.2); Potassium 4.3 mmol/L (3.5-5.1)
[2017-11-09] MEDS: LEVOTHYROXINE 137 MCG TAB PO SCH (06:41)
[2017-11-09] MEDS: BUDESONIDE 0.5 MG/2 ML NEBU INHALATION SCH ×2 (07:16→20:23)
[2017-11-09] MEDS: IPRATROPIUM-ALBUTEROL 3 ML NEB INHALATION SCH ×4 (07:17→20:22)
[2017-11-09] MEDS: FORMOTEROL FUMARATE 20 MCG/2 ML NEBU INHALATION SCH ×2 (07:19→20:23)
[2017-11-09] MEDS: SACUBITRIL/VALSARTAN 97 MG-103 MG TABLET PO SCH ×2 (07:42→17:02)
[2017-11-09] MEDS: METOPROLOL TARTRATE 25 MG TAB PO SCH ×2 (07:42→17:02)
[2017-11-09] MEDS: methylPREDNISolone SOD SUCCI 40 MG/ML 1 ML VIAL IV SCH (07:42)
[2017-11-09] MEDS: NON-FORMULARY DRUG (Colloidal Oatmeal [Eucerin Eczema Relief] 1 APPLIC) TOPICAL SCH ×2 (07:43→21:31)
[2017-11-09] MEDS: APIXABAN 2.5 MG TABLET PO SCH ×2 (07:43→21:31)
[2017-11-09] MEDS: AMIODARONE 200 MG TAB PO SCH (07:43)
[2017-11-09] MEDS: ASPIRIN 81 MG PO SCH (07:43)
[2017-11-09] MEDS: FAMOTIDINE 20 MG TAB PO SCH (07:44)
[2017-11-09] MEDS: FERROUS SULFATE 325 MG TAB PO SCH ×2 (07:44→21:31)
[2017-11-09] MEDS: ESCITALOPRAM 20 MG TAB PO SCH (07:44)
[2017-11-09] MEDS: LORazepam 0.5 MG TAB PO PRN ×2 (07:46→17:13)
[2017-11-09] MEDS: HYDROcodone/APAP 5-325MG 1 EACH TAB PO PRN ×2 (07:46→21:44)
--- NOTE | 2017-11-09 07:46 | XR ---
EXAMINATION TYPE: XR chest 1V portable DATE OF EXAM: 11/09/2017 COMPARISON: 11/05/2017 and 08/20/2017. HISTORY: Shortness of breath TECHNIQUE: Single frontal view of the chest is obtained. FINDINGS: There is an enlarged cardiac silhouette that overall appears similar to the exam of 2016, however this has somewhat of a bulbous appearance and evaluation for underlying pericardial eff usion is recommended with echocardiogram. Degree of mild pulmonary vascular congestion and interstiti al edema are unchanged from the prior. No pleural effusion or pneumothorax. Minimal biapical pleural thickening. Extensive atherosclerosis of the axillary and subclavian arteries are noted. Osseous stru ctures are intact. IMPRESSION: 1. Globally enlarged cardiac silhouette, appearing unchanged 08/20/2017, however given its appearance exclusion of pericardial effusion is recommended with echocardiogram. 2. Persistent mild pulmonary vascular congestion.
[2017-11-09] MEDS: AMPICILLIN-SULBACTAM 3 GM in SODIUM CHLORIDE 0.9% 100 ML IVPB SCH ×4 (08:57→21:30)
--- NOTE | 2017-11-09 11:12 | P.PN ---
Subjective Progress Note Date: 11/09/17 Principal diagnosis: acute exacerbation of COPD and acute on chronicsystolic and diastolic congestive heart failure. This is a very pleasant 62-year-old female patient who follows with Dr. Chika Lloyd as her primary care physician. She has a history of chronic atrial fibrillation/flutter, systolic congestive heart failure with estimated ejection fraction of 35% , restless leg syndrome, fibromyalgia, hypertension, hyperlipidemia, osteoarthritis, hypothyroidism, severe tricuspid regurgitation, depression. She also has a significant history of end-stage chronic obstructive pulmonary disease and chronic hypoxic respiratory failure. She has had multiple admissions for both exacerbations of CHF and COPD. She was most recently discharged on 10/01/2017 to [facility]. She had been doing fairly well for approximately one month when she presented to the emergency room yesterday with complaints of increasing shortness of breath, cough and congestion. He was also having complaints of left foot pain and swelling and being treated for cellulitis. Negative DVT. Her chest x-ray reveals some mild congestive heart failure with pleural effusions. ProBNP 10, 700. Troponins negative 2. Creatinine 1.40. There is also noted cardiomegaly. No clear evidence of pneumonia. No leukocytosis. Has been afebrile. Hemodynamically stable. Maintaining O2 saturations in the low 90s on 4 L/m per nasal cannula. The patient is seen again today 11/07/2017 in follow-up on the selective care unit. She is currently awake and alert in no acute distress. She is actually laying flat in bed without significant dyspnea. She does get quite short of breath with minimal exertion however. She is maintaining good O2 saturations in the 90s on 3 L/m per nasal cannula. She's been afebrile. Hemodynamically stable. No leukocytosis. Hemoglobin 11.0. Bicarb 44. Creatinine 1.33. She is currently in a -500 balance. She remains on Lasix 40 mg IV every 12 hours. The patient is seen again today 11/08/2017 in follow-up on the selective care unit. She is awake and alert in no acute distress. She is breathing easier today as compared to yesterday but not quite back to her baseline. Blood culture reveals no growth to date. A curb stable at 44. Creatinine 1.34. She remains in a -700 mL balance. Continue on Lasix 40 IV every 12 hours. He is maintaining good O2 saturations in the upper 90s on 3 L/m per nasal cannula. She's been afebrile. Hemodynamically stable. Reevaluated today on 11/09/2017, patient is having more trouble breathing today, cough and wheezing and feels short of breath. Chest x-ray showed minimal interstitial changes, not enough to explain her pulmonary symptoms today. And not enough to explain her pulmonary findings. Hence I recommended that we increase her Solu-Medrol again to 60 mg IV push every 8 hours, I have also started Diamox, patient is already on Lasix orally. She is also on updrafts, and on bronchodilators.labs were reviewed her bicarb is 43, renal profile is showing some component of prerenal azotemia. Objective - Vital Signs Vital signs: Vital Signs Temp 97 F L 11/09/17 07:40 Pulse 96 11/09/17 11:01 Resp 16 11/09/17 07:55 BP 151/88 11/09/17 07:40 Pulse Ox 95 11/09/17 07:40 Intake & Output 11/08/17 11/09/17 11/09/17 18:59 06:59 18:59 Intake Total 750 Output Total 700 Balance -700 750 Weight 80.1 kg 80.3 kg Intake: Intake, IV Titration 250 Amount Vancomycin 1,500 mg In 250 Sodium Chloride 0.9% 250 ml @ 125 mls/hr IVPB Q24H [facility] Rx#:[id number] Oral 500 Output: Urine 700 Other: Voiding Method Bedside Commode Bedside Commode # Voids 2 # Bowel Movements 1 - Exam GENERAL EXAM: Alert, active, comfortable in no apparent distress. HEAD: Normocephalic. EYES: Normal reaction of pupils, equal size. Ptosis. NOSE: Clear with pink turbinates. THROAT: No erythema or exudates. NECK: No masses, no JVD. CHEST: No chest wall deformity. LUNGS: Equal air entry with crackles in the posterior bases. diffuse bilateral wheezing was noted. CVS: S1 and S2 normal with no audible murmur, regular rhythm. ABDOMEN: No hepatosplenomegaly, normal bowel sounds, no guarding or rigidity. SPINE: Kyphosis SKIN: Some redness and edema of the left lower extremity. CENTRAL NERVOUS SYSTEM: No focal deficits, tone is normal in all 4 extremities. EXTREMITIES: There is trace peripheral edema. No clubbing, no cyanosis. Peripheral pulses are intact. - Labs CBC & Chem 7: 11/07/17 05:49 11/09/17 06:00 Labs: Abnormal Lab Results - Last 24 Hours (Table) 11/08/17 11/08/17 11/08/17 Range/Units 11:22 16:25 20:20 Chloride (98-107) mmol/L Carbon Dioxide (22-30) mmol/L BUN (7-17) mg/dL Creatinine (0.52-1.04) mg/dL Glucose (74-99) mg/dL POC Glucose (mg/dL) 192 H 143 H 168 H (75-99) mg/dL 11/09/17 11/09/17 Range/Units 05:47 06:00 Chloride 92 L (98-107) mmol/L Carbon Dioxide 43 H* (22-30) mmol/L BUN 61 H (7-17) mg/dL Creatinine 1.58 H (0.52-1.04) mg/dL Glucose 147 H (74-99) mg/dL POC Glucose (mg/dL) 173 H (75-99) mg/dL Microbiology - Last 24 Hours (Table) 11/05/17 22:59 Blood Culture - Preliminary Blood No Growth after 72 hours Assessment and Plan Assessment: #1 Acute exacerbation of combined systolic and diastolic congestive heart failure. Ejection fraction 40-45%. #2 Acute exacerbation of advanced oxygen dependent chronic obstructive pulmonary disease. FEV1 30% of predicted. #3 Acute on chronic hypoxic respiratory failure secondary to above. On oxygen at 2 L in the outpatient setting. #4 Moderate to severe pulmonary hypertension. #5 Chronic atrial fibrillation, anticoagulated with Eliquis. #6 Coronary artery disease, history of. #7 Hypothyroidism. #8 Degenerative arthritis. #9 Fibromyalgia. #10 Hyperlipidemia. #11 Cellulitis of the left lower extremity. #12 Poor overall functional performance based on the above-mentioned multiple comorbidities. Recommendation: Considering her worsening today, I recommended increasing the dose of Solu-Medrol back to 60 mg IV push every 8 hours, reviewed the patient chest x-ray with cardiology, patient will remain on the same medications, and considering that the patient is developing worsening metabolic alkalosis, I will go ahead and added Diamox. 250 mg by mouth twice a day. Not ready for any discharge planning at this point. Time with Patient: Less than 30
[2017-11-09 11:36] LABS: Glucose,Whole Blood 225 mg/dL (75-99)
[2017-11-09] MEDS: acetaZOLAMIDE 250 MG TAB PO SCH ×2 (11:41→21:30)
--- NOTE | 2017-11-09 11:54 | P.PN ---
Subjective Progress Note Date: 11/09/17 This is a pleasant 62-year-old female with known history of end-stage COPD, hypertension, hyperlipidemia, peripheral vascular disease with prior peripheral stenting, nonischemic cardiomyopathy, persistent atrial fibrillation , prior cardiac ablation, hypertension, hyperlipidemia. She is most recently been at [facility] for rehab. She presented to the hospital with a 2-3 day duration of worsening shortness of breath and worsening peripheral edema. MP level came in to be 10,700. She was initiated on IV Lasix as well as IV steroids and antibiotics. Upon examination today, patient is sitting up in bed. She is quite wheezy with significant shortness of breath with talking. Continues to have lower extremity edema. Her BUN and creatinine are elevated compared to yesterday of 61 and 1.58. Objective - Vital Signs Vital signs: Vital Signs Temp 97 F L 11/09/17 07:40 Pulse 90 11/09/17 11:44 Resp 16 11/09/17 11:44 BP 132/84 11/09/17 11:44 Pulse Ox 94 L 11/09/17 11:44 Intake & Output 11/08/17 11/09/17 11/09/17 18:59 06:59 18:59 Intake Total 750 Output Total 700 Balance -700 750 Weight 80.1 kg 80.3 kg Intake: Intake, IV Titration 250 Amount Vancomycin 1,500 mg In 250 Sodium Chloride 0.9% 250 ml @ 125 mls/hr IVPB Q24H [facility] Rx#:[id number] Oral 500 Output: Urine 700 Other: Voiding Method Bedside Commode Bedside Commode # Voids 2 # Bowel Movements 1 - Exam PHYSICAL EXAMINATION: HEENT: Head is atraumatic, normocephalic. Pupils equal, round. Neck is supple. There is no elevated jugular venous pressure. HEART EXAMINATION: Heart sounds irregularly irregular, S1 and S2 normal. No murmur or gallop heard. CHEST EXAMINATION: Lungs reveal diminished air entry with expiratory wheezing throughout. No chest wall tenderness is noted on palpation or with deep breathing. ABDOMEN: Soft, nontender. Bowel sounds are heard. No organomegaly noted. EXTREMITIES: 2+ peripheral pulses with evidence of peripheral edema and no calf tenderness noted. NEUROLOGIC patient is awake, alert and oriented x3. . - Labs CBC & Chem 7: 11/07/17 05:49 11/09/17 06:00 Labs: Abnormal Lab Results - Last 24 Hours (Table) 11/08/17 11/08/17 11/09/17 Range/Units 16:25 20:20 05:47 Chloride (98-107) mmol/L Carbon Dioxide (22-30) mmol/L BUN (7-17) mg/dL Creatinine (0.52-1.04) mg/dL Glucose (74-99) mg/dL POC Glucose (mg/dL) 143 H 168 H 173 H (75-99) mg/dL 11/09/17 11/09/17 Range/Units 06:00 11:32 Chloride 92 L (98-107) mmol/L Carbon Dioxide 43 H* (22-30) mmol/L BUN 61 H (7-17) mg/dL Creatinine 1.58 H (0.52-1.04) mg/dL Glucose 147 H (74-99) mg/dL POC Glucose (mg/dL) 225 H (75-99) mg/dL Microbiology - Last 24 Hours (Table) 11/05/17 22:59 Blood Culture - Preliminary Blood No Growth after 72 hours Assessment and Plan Assessment: #1 acute on chronic combined congestive heart failure #2 exacerbation of COPD #3 history of moderate to severe peripheral vascular disease with prior stenting #4 chronic persistent atrial fibrillation, on Eliquis for anticoagulation #5 acute on chronic kidney injury #6 nonischemic cardiomyopathy #7 hypertension #8 hyperlipidemia Plan: From cardiology's perspective, we will switch to by mouth Lasix in light of elevation and BUN and creatinine. We will continue to follow the patient provide further recommendations accordingly. OILER BANDER note has been reviewed, I agree with a documented findings and plan of care. Patient was seen and examined.
--- NOTE | 2017-11-09 15:59 | P.PN ---
Progress Note - Text Progress Note Date: 11/09/17 DATE OF SERVICE: 11/09/2017 PRESENTING COMPLAINT: Increasing shortness of breath HISTORY OF PRESENT ILLNESS: 82-year-old female who presented with increasing shortness of breath, unable to finish sentences short of breath at rest positive cough production, afebrile.Also had some redness and swelling concerning for cellulitis to the leftlowerextremity.Admittedforthesame. INTERVAL HISTORY: 11/09/2017: Lying in bed, afebrile, increased work of breathing, cough wheezing feels short of breath. Solu-Medrol increased, Diamox added Lasix switched to by mouth. Elevated kidney function today as well. Patient noted to have a subconjunctival hemorrhage to the left eye, likely due to coughing. 11/08/2017: Lying in bed, shortness of breath improving continues to be short of breath with minimal exertion. Mild conversational dyspnea, coarse cough, some sputum production, afebrile. Left lower extremity warm red tender dressed with Silvadene cream and Curlex wrap. Appetite is low, up with assistance. Last BM 11/07/2017. Remains on IV Lasix, negative fluid balance of 1520 mL. 11/07/2017: lying in bed continues to be short of breath at rest and with minimal exertion. Continues to have conversational dyspnea, has a cough no sputum afebrile. Left lower extremity with Silvadene cream and Curlex wrap and ampicillin .appetite low, up with assistance, last BM11/07/2017: REVIEW OF SYSTEMS: Done for constitutional ,cardiovascular, GI, pulmonary with relevant findings as above. CURRENT MEDICATIONS Tylenol, [place], DuoNeb, ampicillin, Apixaban,Dulcolax, Pulmicort, Lexapro, Pepcid, Feosol, Perforomist, Lasix, sliding scale insulin, Synthroid,Imodium, Ativan, milk of magnesia, melatonin, Solu-Medrol, Lopressor,entresto, Silvadene cream, fleets enema. Vancomycin. PHYSICAL EXAM VITAL SIGNS: Temperature 97.0, pulse 94, respiratory rate 16, blood pressure 151/88, oxygen saturation 95% on 3 L. GENERAL APPEARANCE: Lying flat in bed, sleepy appearing. HEENT: Normocephalic, Pupils equal.has exophthalmos, subconjunctival hemorrhage noted to the left outer canthus, . JVD raised. Mass not palpable.: RESPIRATORY: Respiratory effort increased. Lungs diminished with inspiratory and expiratory wheezing coarse cough no sputum, . CARDIOVASCULAR: First and second sounds normal.mild edema. ABDOMEN: Soft. Liver and spleen not palpable. No tenderness. No mass palpable. PSYCHIATRY: Alert and oriented x3. Mood and affect mildly anxious INTEGUMENT: Left lower extremity reddened, no drainage noted improving, INVESTIGATIONS: Sodium 142, potassium 4.3, chloride 92, carbon dioxide 43, BUN 61, creatinine 1.58, Accu-Cheks noted. Blood cultures no growth after 72 hours ASSESSMENT: -acute on chronic congestive heart failure exacerbation from systolic dysfunction, from non ischemic cardiomyopathy ejection fraction 40-45%, worsening -Acute chronic obstructive pulmonary disease exacerbation in an ex-smoker, worsening -moderate tricuspid regurgitation, nonrheumatic. -Severe secondary pulmonary hypertension secondary to chronic obstructive pulmonary disease. -Persistent atrial fibrillation/flutter chronically on Eliquis. -Subconjunctival hemorrhage left eye likely due to coughing episodes. -Restless leg syndrome, chronic. -Chronic fibromyalgia. -Primary osteoarthritis multiple joints, bilateral. -Chronic hypoxic respiratory failure from underlying chronic obstructive pulmonary disease on 3 L of oxygen at home. -Acute hypoxic respiratory failure from chronic obstructive pulmonary disease present on admission. -Hypothyroidism. -Medical debility. -Gait dysfunction uses a walker. -Peripheral arterial disease with prior history of stent. -Acute left lower extremity cellulitis, improving -CODE STATUS FULL. PLAN: continue by mouth Lasix, nebulized bronchodilators, IV Solu-Medrol and increased to 60 mg every 6 hours as patient's condition is worsening and antibiotics in the form of vancomycin and Unasyn, Eliquis for anticoagulation.subconjunctival hemorrhage to left eye monitor closely Plan of care discussed at the bedside patient is agreeable, we will follow closely. PUBLIC AREA SUPERVISOR statement: Patient was seen and examined by nurse practitioner Cathie Monk and all elements of the case discussed with attending Dr. Ramos
[2017-11-09 16:38] LABS: Glucose,Whole Blood 132 mg/dL (75-99)
[2017-11-09] MEDS: methylPREDNISolone SOD SUCCI 125 MG/2 ML VIAL IV SCH ×2 (17:02→23:18)
[2017-11-09 21:02] LABS: Glucose,Whole Blood 239 mg/dL (75-99)
[2017-11-09] MEDS: ATORVASTATIN 80 MG TAB PO SCH (21:31)
[2017-11-09] MEDS: MELATONIN 5 MG TABLET PO SCH (21:31)
[2017-11-09] MEDS: FUROSEMIDE 40 MG TAB PO SCH (21:36)
--- NOTE | 2017-11-09 23:05 | PN ---
PROGRESS NOTE DATE OF SERVICE: 11/09/2017. ATTENDING NOTE: The patient seen and examined by me. I discussed with my nurse practitioner, Terijohn paul. The patient has slightly been short of breath, some wheezing. EXAMINATION: LUNGS: Decreased breath sounds, wheezing. Afebrile, blood pressure 116/77, pulse ox 94% on 3L. ASSESSMENT: 1. Congestive heart failure exacerbation. 2. Chronic obstructive pulmonary disease. Continue with the current treatment plan. The patient is overall feeling a bit better. Overall prognosis guarded. Lasix was changed to p.o. BUN and creatinine are 61 and 1.58. Will add some Diamox for now. MMODL / IJN: [id number] /
[2017-11-10] MEDS: IPRATROPIUM-ALBUTEROL 3 ML NEB INHALATION PRN (01:52)
[2017-11-10] MEDS: LORazepam 0.5 MG TAB PO PRN ×3 (01:52→21:11)
[2017-11-10 06:05] LABS: Glucose,Whole Blood 143 mg/dL (75-99)
[2017-11-10 06:17] LABS: Potassium 4.5 mmol/L (3.5-5.1)
[2017-11-10] MEDS: INSULIN ASPART 100 UNIT/ML 1 ML 10 ML VIAL SQ SCH ×4 (06:20→20:28)
[2017-11-10] MEDS: VANCOMYCIN 1,250 MG in SODIUM CHLORIDE 0.9% 250 ML IVPB SCH (06:20)
[2017-11-10] MEDS: LEVOTHYROXINE 137 MCG TAB PO SCH (06:21)
[2017-11-10] MEDS: IPRATROPIUM-ALBUTEROL 3 ML NEB INHALATION SCH ×4 (08:19→20:14)
[2017-11-10] MEDS: FORMOTEROL FUMARATE 20 MCG/2 ML NEBU INHALATION SCH ×2 (08:19→20:14)
[2017-11-10] MEDS: BUDESONIDE 0.5 MG/2 ML NEBU INHALATION SCH ×2 (08:19→20:15)
[2017-11-10] MEDS: methylPREDNISolone SOD SUCCI 125 MG/2 ML VIAL IV SCH ×3 (09:20→23:06)
[2017-11-10] MEDS: METOPROLOL TARTRATE 25 MG TAB PO SCH ×2 (09:20→16:56)
[2017-11-10] MEDS: AMPICILLIN-SULBACTAM 3 GM in SODIUM CHLORIDE 0.9% 100 ML IVPB SCH ×4 (09:21→21:12)
[2017-11-10] MEDS: acetaZOLAMIDE 250 MG TAB PO SCH ×2 (09:21→20:28)
[2017-11-10] MEDS: SACUBITRIL/VALSARTAN 97 MG-103 MG TABLET PO SCH ×2 (09:21→16:56)
[2017-11-10] MEDS: AMIODARONE 200 MG TAB PO SCH (09:21)
[2017-11-10] MEDS: APIXABAN 2.5 MG TABLET PO SCH ×2 (09:22→20:28)
[2017-11-10] MEDS: ASPIRIN 81 MG PO SCH (09:22)
[2017-11-10] MEDS: ESCITALOPRAM 20 MG TAB PO SCH (09:24)
[2017-11-10] MEDS: FERROUS SULFATE 325 MG TAB PO SCH ×2 (09:24→20:29)
[2017-11-10] MEDS: FAMOTIDINE 20 MG TAB PO SCH (09:24)
[2017-11-10] MEDS: NON-FORMULARY DRUG (Colloidal Oatmeal [Eucerin Eczema Relief] 1 APPLIC) TOPICAL SCH ×2 (09:24→20:28)
[2017-11-10] MEDS: FUROSEMIDE 40 MG TAB PO SCH ×2 (09:25→20:29)
--- NOTE | 2017-11-10 09:49 | P.PN ---
Subjective Progress Note Date: 11/10/17 Principal diagnosis: acute exacerbation of COPD and acute on chronicsystolic and diastolic congestive heart failure. This is a very pleasant 62-year-old female patient who follows with Dr. Chika Lloyd as her primary care physician. She has a history of chronic atrial fibrillation/flutter, systolic congestive heart failure with estimated ejection fraction of 35% , restless leg syndrome, fibromyalgia, hypertension, hyperlipidemia, osteoarthritis, hypothyroidism, severe tricuspid regurgitation, depression. She also has a significant history of end-stage chronic obstructive pulmonary disease and chronic hypoxic respiratory failure. She has had multiple admissions for both exacerbations of CHF and COPD. She was most recently discharged on 10/01/2017 to [facility]. She had been doing fairly well for approximately one month when she presented to the emergency room yesterday with complaints of increasing shortness of breath, cough and congestion. He was also having complaints of left foot pain and swelling and being treated for cellulitis. Negative DVT. Her chest x-ray reveals some mild congestive heart failure with pleural effusions. ProBNP 10, 700. Troponins negative 2. Creatinine 1.40. There is also noted cardiomegaly. No clear evidence of pneumonia. No leukocytosis. Has been afebrile. Hemodynamically stable. Maintaining O2 saturations in the low 90s on 4 L/m per nasal cannula. The patient is seen again today 11/07/2017 in follow-up on the selective care unit. She is currently awake and alert in no acute distress. She is actually laying flat in bed without significant dyspnea. She does get quite short of breath with minimal exertion however. She is maintaining good O2 saturations in the 90s on 3 L/m per nasal cannula. She's been afebrile. Hemodynamically stable. No leukocytosis. Hemoglobin 11.0. Bicarb 44. Creatinine 1.33. She is currently in a -500 balance. She remains on Lasix 40 mg IV every 12 hours. The patient is seen again today 11/08/2017 in follow-up on the selective care unit. She is awake and alert in no acute distress. She is breathing easier today as compared to yesterday but not quite back to her baseline. Blood culture reveals no growth to date. A curb stable at 44. Creatinine 1.34. She remains in a -700 mL balance. Continue on Lasix 40 IV every 12 hours. He is maintaining good O2 saturations in the upper 90s on 3 L/m per nasal cannula. She's been afebrile. Hemodynamically stable. Reevaluated today on 11/09/2017, patient is having more trouble breathing today, cough and wheezing and feels short of breath. Chest x-ray showed minimal interstitial changes, not enough to explain her pulmonary symptoms today. And not enough to explain her pulmonary findings. Hence I recommended that we increase her Solu-Medrol again to 60 mg IV push every 8 hours, I have also started Diamox, patient is already on Lasix orally. She is also on updrafts, and on bronchodilators.labs were reviewed her bicarb is 43, renal profile is showing some component of prerenal azotemia. Reevaluated today on 11/10/2017, continues to cough and wheezing continues to have shortness of breath, and not much tire changer the last 24 hours in spite of the higher dose of steroids and in spite of increasing diuretics. Continues to have elevated bicarb of 42 and BUN of 62 creatinine of 1.70. Patient is still about the same clinically. Not much of a change noted in the last couple of days. Objective - Vital Signs Vital signs: Vital Signs Temp 97.6 F 11/10/17 08:00 Pulse 84 11/10/17 08:42 Resp 18 11/10/17 08:00 BP 114/57 11/10/17 08:00 Pulse Ox 95 11/10/17 08:00 Intake & Output 11/09/17 11/10/17 11/10/17 18:59 06:59 18:59 Intake Total 1330 236 Output Total 1000 Balance 1330 -1000 236 Weight 79.5 kg Intake: Intake, IV Titration 350 Amount Ampicillin-Sulbactam 3 gm 100 In Sodium Chloride 0.9% 100 ml @ 100 mls/hr IVPB QID [facility] Rx#:[id number] Vancomycin 1,500 mg In 250 Sodium Chloride 0.9% 250 ml @ 125 mls/hr IVPB Q24H [facility] Rx#:[id number] Oral 980 236 Output: Urine 1000 Other: Voiding Method Bedside Commode Bedside Commode - Exam GENERAL EXAM: Alert, active, comfortable in no apparent distress. HEAD: Normocephalic. EYES: Normal reaction of pupils, equal size. Ptosis. NOSE: Clear with pink turbinates. THROAT: No erythema or exudates. NECK: No masses, no JVD. CHEST: No chest wall deformity. LUNGS: Equal air entry with crackles in the posterior bases. diffuse bilateral wheezing was noted. CVS: S1 and S2 normal with no audible murmur, regular rhythm. ABDOMEN: No hepatosplenomegaly, normal bowel sounds, no guarding or rigidity. SPINE: Kyphosis SKIN: Some redness and edema of the left lower extremity. CENTRAL NERVOUS SYSTEM: No focal deficits, tone is normal in all 4 extremities. EXTREMITIES: There is trace peripheral edema. No clubbing, no cyanosis. Peripheral pulses are intact. - Labs CBC & Chem 7: 11/07/17 05:49 11/10/17 05:36 Labs: Abnormal Lab Results - Last 24 Hours (Table) 11/09/17 11/09/17 11/09/17 Range/Units 11:32 16:37 20:59 Chloride (98-107) mmol/L Carbon Dioxide (22-30) mmol/L BUN (7-17) mg/dL Creatinine (0.52-1.04) mg/dL Glucose (74-99) mg/dL POC Glucose (mg/dL) 225 H 132 H 239 H (75-99) mg/dL 11/10/17 11/10/17 Range/Units 05:36 06:02 Chloride 93 L (98-107) mmol/L Carbon Dioxide 42 H* (22-30) mmol/L BUN 62 H (7-17) mg/dL Creatinine 1.70 H (0.52-1.04) mg/dL Glucose 127 H (74-99) mg/dL POC Glucose (mg/dL) 143 H (75-99) mg/dL Microbiology - Last 24 Hours (Table) 11/05/17 22:59 Blood Culture - Preliminary Blood No Growth after 96 hours Assessment and Plan Assessment: #1 Acute exacerbation of combined systolic and diastolic congestive heart failure. Ejection fraction 40-45%. #2 Acute exacerbation of advanced oxygen dependent chronic obstructive pulmonary disease. FEV1 30% of predicted. #3 Acute on chronic hypoxic respiratory failure secondary to above. On oxygen at 2 L in the outpatient setting. #4 Moderate to severe pulmonary hypertension. #5 Chronic atrial fibrillation, anticoagulated with Eliquis. #6 Coronary artery disease, history of. #7 Hypothyroidism. #8 Degenerative arthritis. #9 Fibromyalgia. #10 Hyperlipidemia. #11 Cellulitis of the left lower extremity. #12 Poor overall functional performance based on the above-mentioned multiple comorbidities. Recommendation: Continue present course of bronchodilators, diuretics, antibiotics, steroids, not ready for any discharge planning. Continue to monitor renal profile closely. Time with Patient: Less than 30
[2017-11-10 11:46] LABS: Glucose,Whole Blood 199 mg/dL (75-99)
--- NOTE | 2017-11-10 14:13 | P.PN ---
Subjective Progress Note Date: 11/10/17 This is a pleasant 62-year-old female with known history of end-stage COPD, hypertension, hyperlipidemia, peripheral vascular disease with prior peripheral stenting, nonischemic cardiomyopathy, persistent atrial fibrillation , prior cardiac ablation, hypertension, hyperlipidemia. She is most recently been at [facility] for rehab. She presented to the hospital with a 2-3 day duration of worsening shortness of breath and worsening peripheral edema. MP level came in to be 10,700. She was initiated on IV Lasix as well as IV steroids and antibiotics. Upon examination today, patient is sitting up in bed. She continues to be quite wheezy with complaints of shortness of breath with talking. Continues to have lower extremity edema. Her BUN and creatinine are elevated compared to yesterday at 62 and 1.70. She was switched to by mouth Lasix yesterday. Objective - Vital Signs Vital signs: Vital Signs Temp 98.1 F 11/10/17 12:00 Pulse 98 11/10/17 12:00 Resp 18 11/10/17 12:00 BP 115/66 11/10/17 12:00 Pulse Ox 94 L 11/10/17 12:00 Intake & Output 11/09/17 11/10/17 11/10/17 18:59 06:59 18:59 Intake Total 1330 826 Output Total 1000 Balance 1330 -1000 826 Weight 79.5 kg Intake: Intake, IV Titration 350 350 Amount Ampicillin-Sulbactam 3 gm 100 100 In Sodium Chloride 0.9% 100 ml @ 100 mls/hr IVPB QID [facility] Rx#:[id number] Vancomycin 1,250 mg In 250 Sodium Chloride 0.9% 250 ml @ 125 mls/hr IVPB Q24H [facility] Rx#:[id number] Vancomycin 1,500 mg In 250 Sodium Chloride 0.9% 250 ml @ 125 mls/hr IVPB Q24H [facility] Rx#:[id number] Oral 980 476 Output: Urine 1000 Other: Voiding Method Bedside Commode Bedside Commode Bedside Commode - Exam PHYSICAL EXAMINATION: HEENT: Head is atraumatic, normocephalic. Pupils equal, round. Neck is supple. There is no elevated jugular venous pressure. HEART EXAMINATION: Heart sounds irregularly irregular, S1 and S2 normal. No murmur or gallop heard. CHEST EXAMINATION: Lungs reveal diminished air entry with expiratory wheezing throughout. No chest wall tenderness is noted on palpation or with deep breathing. ABDOMEN: Soft, nontender. Bowel sounds are heard. No organomegaly noted. EXTREMITIES: 2+ peripheral pulses with evidence of peripheral edema left greater than right and no calf tenderness noted. NEUROLOGIC patient is awake, alert and oriented x3. . - Labs CBC & Chem 7: 11/07/17 05:49 11/10/17 05:36 Labs: Abnormal Lab Results - Last 24 Hours (Table) 11/09/17 11/09/17 11/10/17 Range/Units 16:37 20:59 05:36 Chloride 93 L (98-107) mmol/L Carbon Dioxide 42 H* (22-30) mmol/L BUN 62 H (7-17) mg/dL Creatinine 1.70 H (0.52-1.04) mg/dL Glucose 127 H (74-99) mg/dL POC Glucose (mg/dL) 132 H 239 H (75-99) mg/dL 11/10/17 11/10/17 Range/Units 06:02 11:20 Chloride (98-107) mmol/L Carbon Dioxide (22-30) mmol/L BUN (7-17) mg/dL Creatinine (0.52-1.04) mg/dL Glucose (74-99) mg/dL POC Glucose (mg/dL) 143 H 199 H (75-99) mg/dL Microbiology - Last 24 Hours (Table) 11/05/17 22:59 Blood Culture - Preliminary Blood No Growth after 96 hours Assessment and Plan Assessment: #1 acute on chronic combined congestive heart failure #2 exacerbation of COPD #3 history of moderate to severe peripheral vascular disease with prior stenting #4 chronic persistent atrial fibrillation, on Eliquis for anticoagulation #5 acute on chronic kidney injury #6 nonischemic cardiomyopathy #7 hypertension #8 hyperlipidemia Plan: From cardiology's perspective, we will continue by mouth Lasix. Continue to monitor Lytes, BUN and Creatinine. We will continue to follow the patient provide further recommendations accordingly. AS400 ADMINISTRATOR note has been reviewed, I agree with a documented findings and plan of care. Patient was seen and examined.
--- NOTE | 2017-11-10 16:43 | P.PN ---
Progress Note - Text Progress Note Date: 11/10/17 DATE OF SERVICE: 11/10/2017 PRESENTING COMPLAINT: Increasing shortness of breath HISTORY OF PRESENT ILLNESS: 82-year-old female who presented with increasing shortness of breath, unable to finish sentences short of breath at rest positive cough production, afebrile.Also had some redness and swelling concerning for cellulitis to the leftlowerextremity.Admittedforthesame. INTERVAL HISTORY: 11/10/2017: Lying in bed, afebrile, breathing and shortness of breath improving still has a raspy sounding voice and a cough with no sputum production. Solu-Medrol remains IV at 60 mg, Diamox added and Lasix continues to be given by mouth. Renal function worsening today. Subconjunctival hemorrhage to the left eye improving. Fluid balance -460 mL. Appetite continues to be low, eating only about 50% of her meals, only able to tolerate getting up to the bedside commode terms of activity, left lower extremity cellulitis improving Silvadene and Curlex continue. 11/09/2017: Lying in bed, afebrile, increased work of breathing, cough wheezing feels short of breath. Solu-Medrol increased, Diamox added Lasix switched to by mouth. Elevated kidney function today as well. Patient noted to have a subconjunctival hemorrhage to the left eye, likely due to coughing. 11/08/2017: Lying in bed, shortness of breath improving continues to be short of breath with minimal exertion. Mild conversational dyspnea, coarse cough, some sputum production, afebrile. Left lower extremity warm red tender dressed with Silvadene cream and Curlex wrap. Appetite is low, up with assistance. Last BM 11/07/2017. Remains on IV Lasix, negative fluid balance of 1520 mL. 11/07/2017: lying in bed continues to be short of breath at rest and with minimal exertion. Continues to have conversational dyspnea, has a cough no sputum afebrile. Left lower extremity with Silvadene cream and Curlex wrap and ampicillin .appetite low, up with assistance, last BM11/07/2017: REVIEW OF SYSTEMS: Done for constitutional ,cardiovascular, GI, pulmonary with relevant findings as above. CURRENT MEDICATIONS Tylenol, [place], Diamox, DuoNeb, amiodarone, ampicillin sulbactam, Eliquis, aspirin, Lipitor, Dulcolax, Pulmicort, Lexapro, as Pepcid, Feosol, Perforomist, Lasix, NovoLog, Synthroid, Imodium, Ativan, milk of magnesia, melatonin, Solu- Medrol, Lopressor, entresto, Silvadene cream, Fleet Enema, vancomycin. PHYSICAL EXAM VITAL SIGNS: Temperature 98.1, pulse 98, respiratory rate 18, blood pressure 115/66, oxygen saturation 94% on 3 L. GENERAL APPEARANCE: Lying flat in bed, sleepy appearing. HEENT: Normocephalic, Pupils equal.has exophthalmos, subconjunctival hemorrhage noted to the left outer canthus, . JVD raised. Mass not palpable.: RESPIRATORY: Respiratory effort increased. Lungs diminished with inspiratory and expiratory wheezing coarse cough no sputum, . CARDIOVASCULAR: First and second sounds normal.mild edema. ABDOMEN: Soft. Liver and spleen not palpable. No tenderness. No mass palpable. PSYCHIATRY: Alert and oriented x3. Mood and affect mildly anxious INTEGUMENT: Left lower extremity reddened, no drainage noted improving, INVESTIGATIONS: Chloride 93, carbon dioxide 42, BUN 62, creatinine 1.70, Accu-Cheks noted. Blood cultures no growth after 72 hours ASSESSMENT: -acute on chronic congestive heart failure exacerbation from systolic dysfunction, from non ischemic cardiomyopathy ejection fraction 40-45%, worsening -Acute chronic obstructive pulmonary disease exacerbation in an ex-smoker, worsening -moderate tricuspid regurgitation, nonrheumatic. -Severe secondary pulmonary hypertension secondary to chronic obstructive pulmonary disease. -Persistent atrial fibrillation/flutter chronically on Eliquis. -Subconjunctival hemorrhage left eye likely due to coughing episodes, improving -Restless leg syndrome, chronic. -Chronic fibromyalgia. -Primary osteoarthritis multiple joints, bilateral. -Chronic hypoxic respiratory failure from underlying chronic obstructive pulmonary disease on 3 L of oxygen at home. -Acute hypoxic respiratory failure from chronic obstructive pulmonary disease present on admission. -Hypothyroidism. -Medical debility. -Gait dysfunction uses a walker. -Peripheral arterial disease with prior history of stent. -Acute left lower extremity cellulitis, improving -CODE STATUS FULL. PLAN: continue by mouth Lasix, nebulized bronchodilators, IV Solu-Medrol and increased to 60 mg every 8 hours as patient's condition is worsening and antibiotics in the form of vancomycin and Unasyn, Eliquis for anticoagulation.subconjunctival hemorrhage to left eye monitor closely Plan of care discussed at the bedside patient is agreeable, we will follow closely. IRRIGATION TECHNICIAN statement: Patient was seen and examined by nurse practitioner Cathie Monk and all elements of the case discussed with attending Dr. Ramos
[2017-11-10 16:46] LABS: Glucose,Whole Blood 211 mg/dL (75-99)
[2017-11-10 20:06] LABS: Glucose,Whole Blood 159 mg/dL (75-99)
--- NOTE | 2017-11-10 20:21 | PN ---
PROGRESS NOTE DATE OF SERVICE: 11/10/17. ATTENDING NOTE: Patient seen and examined by me. I discussed with nurse practitioner Ms. Monk. The patient is tired, lying in bed. EXAM: Lungs decreased breath sounds. Mild wheezing. Mild edema. BUN 62, creatinine 1.7, bicarb 42. ASSESSMENT: Acute chronic obstructive pulmonary disease and congestive heart failure exacerbation, clinically improving. Continue current medication and treatment plan. Follow. MMODL / IJN: [id number] /
[2017-11-10] MEDS: HYDROcodone/APAP 5-325MG 1 EACH TAB PO PRN (20:27)
[2017-11-10] MEDS: ATORVASTATIN 80 MG TAB PO SCH (20:28)
[2017-11-10] MEDS: MELATONIN 5 MG TABLET PO SCH (20:29)
[2017-11-11 05:46] LABS: Glucose,Whole Blood 163 mg/dL (75-99)
[2017-11-11] MEDS: INSULIN ASPART 100 UNIT/ML 1 ML 10 ML VIAL SQ SCH ×4 (06:42→21:31)
[2017-11-11] MEDS: LEVOTHYROXINE 137 MCG TAB PO SCH (06:42)
[2017-11-11] MEDS: VANCOMYCIN 1,250 MG in SODIUM CHLORIDE 0.9% 250 ML IVPB SCH (06:43)
[2017-11-11 06:47] LABS: Calcium 8.8 mg/dL (8.4-10.2); Potassium 4.5 mmol/L (3.5-5.1)
[2017-11-11] MEDS ORDERED: VANCOMYCIN IV PER PHARMACY 1 EACH MISC MISCELLANE PRN (07:09)
[2017-11-11] MEDS: FORMOTEROL FUMARATE 20 MCG/2 ML NEBU INHALATION SCH ×2 (08:03→18:52)
[2017-11-11] MEDS: BUDESONIDE 0.5 MG/2 ML NEBU INHALATION SCH ×2 (08:03→18:53)
[2017-11-11] MEDS: IPRATROPIUM-ALBUTEROL 3 ML NEB INHALATION SCH ×4 (08:04→18:52)
[2017-11-11] MEDS: METOPROLOL TARTRATE 25 MG TAB PO SCH ×2 (09:19→17:30)
[2017-11-11] MEDS: ASPIRIN 81 MG PO SCH (09:19)
[2017-11-11] MEDS: methylPREDNISolone SOD SUCCI 125 MG/2 ML VIAL IV SCH ×3 (09:19→23:28)
[2017-11-11] MEDS: acetaZOLAMIDE 250 MG TAB PO SCH ×2 (09:19→20:35)
[2017-11-11] MEDS: SACUBITRIL/VALSARTAN 97 MG-103 MG TABLET PO SCH ×2 (09:19→17:30)
[2017-11-11] MEDS: NON-FORMULARY DRUG (Colloidal Oatmeal [Eucerin Eczema Relief] 1 APPLIC) TOPICAL SCH ×2 (09:20→21:37)
[2017-11-11] MEDS: AMIODARONE 200 MG TAB PO SCH (09:20)
[2017-11-11] MEDS: APIXABAN 2.5 MG TABLET PO SCH ×2 (09:20→20:35)
[2017-11-11] MEDS: ESCITALOPRAM 20 MG TAB PO SCH (09:20)
[2017-11-11] MEDS: FAMOTIDINE 20 MG TAB PO SCH (09:21)
[2017-11-11] MEDS: FERROUS SULFATE 325 MG TAB PO SCH ×2 (09:21→20:35)
[2017-11-11] MEDS: FUROSEMIDE 40 MG TAB PO SCH ×2 (09:21→20:35)
[2017-11-11] MEDS: LORazepam 0.5 MG TAB PO PRN ×2 (09:36→18:28)
[2017-11-11] MEDS: AMPICILLIN-SULBACTAM 3 GM in SODIUM CHLORIDE 0.9% 100 ML IVPB SCH ×4 (10:42→21:34)
--- NOTE | 2017-11-11 10:49 | P.PN ---
Subjective Progress Note Date: 11/11/17 Principal diagnosis: acute exacerbation of COPD and acute on chronic systolic and diastolic congestive heart failure. This is a very pleasant 62-year-old female patient who follows with Dr. Chika Lloyd as her primary care physician. She has a history of chronic atrial fibrillation/flutter, systolic congestive heart failure with estimated ejection fraction of 35% , restless leg syndrome, fibromyalgia, hypertension, hyperlipidemia, osteoarthritis, hypothyroidism, severe tricuspid regurgitation, depression. She also has a significant history of end-stage chronic obstructive pulmonary disease and chronic hypoxic respiratory failure. She has had multiple admissions for both exacerbations of CHF and COPD. She was most recently discharged on 10/01/2017 to [facility]. She had been doing fairly well for approximately one month when she presented to the emergency room yesterday with complaints of increasing shortness of breath, cough and congestion. He was also having complaints of left foot pain and swelling and being treated for cellulitis. Negative DVT. Her chest x-ray reveals some mild congestive heart failure with pleural effusions. ProBNP 10, 700. Troponins negative 2. Creatinine 1.40. There is also noted cardiomegaly. No clear evidence of pneumonia. No leukocytosis. Has been afebrile. Hemodynamically stable. Maintaining O2 saturations in the low 90s on 4 L/m per nasal cannula. The patient is seen again today 11/07/2017 in follow-up on the selective care unit. She is currently awake and alert in no acute distress. She is actually laying flat in bed without significant dyspnea. She does get quite short of breath with minimal exertion however. She is maintaining good O2 saturations in the 90s on 3 L/m per nasal cannula. She's been afebrile. Hemodynamically stable. No leukocytosis. Hemoglobin 11.0. Bicarb 44. Creatinine 1.33. She is currently in a -500 balance. She remains on Lasix 40 mg IV every 12 hours. The patient is seen again today 11/08/2017 in follow-up on the selective care unit. She is awake and alert in no acute distress. She is breathing easier today as compared to yesterday but not quite back to her baseline. Blood culture reveals no growth to date. A curb stable at 44. Creatinine 1.34. She remains in a -700 mL balance. Continue on Lasix 40 IV every 12 hours. He is maintaining good O2 saturations in the upper 90s on 3 L/m per nasal cannula. She's been afebrile. Hemodynamically stable. Reevaluated today on 11/09/2017, patient is having more trouble breathing today, cough and wheezing and feels short of breath. Chest x-ray showed minimal interstitial changes, not enough to explain her pulmonary symptoms today. And not enough to explain her pulmonary findings. Hence I recommended that we increase her Solu-Medrol again to 60 mg IV push every 8 hours, I have also started Diamox, patient is already on Lasix orally. She is also on updrafts, and on bronchodilators.labs were reviewed her bicarb is 43, renal profile is showing some component of prerenal azotemia. Reevaluated today on 11/10/2017, continues to cough and wheezing continues to have shortness of breath, and not much change management the last 24 hours in spite of the higher dose of steroids and in spite of increasing diuretics. Continues to have elevated bicarb of 42 and BUN of 62 creatinine of 1.70. Patient is still about the same clinically. Not much of a change noted in the last couple of days. Reevaluated today on 11/11/2017, less cough and less wheezing or shortness of breath noted today. Patient continues to be generally weak, and debilitated.labs were reviewed BUN is up to 69 creatinine is 2.0, bicarb is 42, patient remains on diuretics. Objective - Vital Signs Vital signs: Vital Signs Temp 97.8 F 11/11/17 08:00 Pulse 68 11/11/17 08:33 Resp 18 11/11/17 08:00 BP 133/78 11/11/17 08:00 Pulse Ox 92 L 11/11/17 08:00 Intake & Output 11/10/17 11/11/17 11/11/17 18:59 06:59 18:59 Intake Total 1006 180 Output Total 200 Balance 1006 -20 Weight 81.2 kg Intake: Intake, IV Titration 350 Amount Ampicillin-Sulbactam 3 gm 100 In Sodium Chloride 0.9% 100 ml @ 100 mls/hr IVPB QID YOSELIN Rx#:[id number] Vancomycin 1,250 mg In 250 Sodium Chloride 0.9% 250 ml @ 125 mls/hr IVPB Q24H YOSELIN Rx#:[id number] Oral 656 180 Output: Urine 200 Other: Voiding Method Bedside Commode Bedside Commode Bedside Commode # Voids 3 # Bowel Movements 2 1 - Exam GENERAL EXAM: Alert, active, comfortable in no apparent distress. HEAD: Normocephalic. EYES: Normal reaction of pupils, equal size. Ptosis. NOSE: Clear with pink turbinates. THROAT: No erythema or exudates. NECK: No masses, no JVD. CHEST: No chest wall deformity. LUNGS: Equal air entry with crackles in the posterior bases. minimal wheezing noted today on forced expiratory maneuver, much improved compared to the last couple of days. CVS: S1 and S2 normal with no audible murmur, regular rhythm. ABDOMEN: No hepatosplenomegaly, normal bowel sounds, no guarding or rigidity. SPINE: Kyphosis SKIN: Some redness and edema of the left lower extremity. CENTRAL NERVOUS SYSTEM: No focal deficits, tone is normal in all 4 extremities. EXTREMITIES: There is trace peripheral edema. No clubbing, no cyanosis. Peripheral pulses are intact. - Labs CBC & Chem 7: 11/07/17 05:49 11/11/17 06:02 Labs: Abnormal Lab Results - Last 24 Hours (Table) 11/10/17 11/10/17 11/10/17 Range/Units 11:20 16:35 20:04 Chloride (98-107) mmol/L Carbon Dioxide (22-30) mmol/L BUN (7-17) mg/dL Creatinine (0.52-1.04) mg/dL Glucose (74-99) mg/dL POC Glucose (mg/dL) 199 H 211 H 159 H (75-99) mg/dL 11/11/17 11/11/17 Range/Units 05:41 06:02 Chloride 95 L (98-107) mmol/L Carbon Dioxide 42 H* (22-30) mmol/L BUN 69 H (7-17) mg/dL Creatinine 2.00 H (0.52-1.04) mg/dL Glucose 163 H (74-99) mg/dL POC Glucose (mg/dL) 163 H (75-99) mg/dL Microbiology - Last 24 Hours (Table) 11/05/17 22:59 Blood Culture - Preliminary Blood No Growth after 120 hours Assessment and Plan Assessment: #1 Acute exacerbation of combined systolic and diastolic congestive heart failure. Ejection fraction 40-45%. #2 Acute exacerbation of advanced oxygen dependent chronic obstructive pulmonary disease. FEV1 30% of predicted. #3 Acute on chronic hypoxic respiratory failure secondary to above. On oxygen at 2 L in the outpatient setting. #4 Moderate to severe pulmonary hypertension. #5 Chronic atrial fibrillation, anticoagulated with Eliquis. #6 Coronary artery disease, history of. #7 Hypothyroidism. #8 Degenerative arthritis. #9 Fibromyalgia. #10 Hyperlipidemia. #11 Cellulitis of the left lower extremity. #12 Poor overall functional performance based on the above-mentioned multiple comorbidities. Recommendation: Continue present course of bronchodilators, diuretics, antibiotics, steroids, not ready for any discharge planning. follow-up chest x- ray in a.m. Time with Patient: Less than 30
[2017-11-11 11:35] LABS: Glucose,Whole Blood 231 mg/dL (75-99)
[2017-11-11] MEDS: HYDROcodone/APAP 5-325MG 1 EACH TAB PO PRN (12:28)
--- NOTE | 2017-11-11 15:04 | PN ---
PROGRESS NOTE Mrs. Saucedo is a 62-year-old female with a known history of chronic obstructive lung disease, history of congestive heart failure on the basis of diastolic dysfunction, history of hypoxemia, pulmonary hypertension, atrial fibrillation. She continued to have dyspnea with minimal activity, although slightly better than yesterday. Her wheezing and cough are better. She denies any dizziness or palpitation. She denies any nausea. She continues to be in atrial fibrillation but anticoagulated. She continues to be at this time on amiodarone 200 mg daily, Eliquis 2.5 mg twice a day, aspirin 81 mg daily, Lipitor 80 mg daily, Lasix 40 mg twice a day, metoprolol tartrate 25 mg twice a day. PHYSICAL EXAMINATION: Blood pressure 133/70 with a heart rate in the 80s. LUNGS: With scattered rhonchi. No wheezes. HEART: Irregularly irregular S1, S2. No S3. No rub. ABDOMEN: Soft and nontender. Extremities a +1 to 2 edema. LAB DATA: Shows BUN and creatinine 69 and 2.0. Her bicarb is 42, potassium is 4.5. IMPRESSION: 1. Symptoms of progressive dyspnea, multifactorial with severe COPD, pulmonary hypertension, and congestive heart failure. 2. Atrial fibrillation. 3. History of coronary artery disease. 4. Renal failure. RECOMMENDATION: We will continue present therapy. Follow the renal function and depending on the trend, further recommendation will be made. If there is no improvement in her renal function, she may require pressor help. MMODL / IJN: [id number] /
[2017-11-11 16:44] LABS: Glucose,Whole Blood 194 mg/dL (75-99)
--- NOTE | 2017-11-11 16:49 | P.PN ---
Progress Note - Text Progress Note Date: 11/11/17 DATE OF SERVICE: 11/11/2017 PRESENTING COMPLAINT: Increasing shortness of breath HISTORY OF PRESENT ILLNESS: 82-year-old female who presented with increasing shortness of breath, unable to finish sentences short of breath at rest positive cough production, afebrile.Also had some redness and swelling concerning for cellulitis to the leftlowerextremity.Admittedforthesame. INTERVAL HISTORY: 11/11/2017: Lying in bed, afebrile, breathing and shortness of breath about the same, raspiness in the throat has subsided, cough no sputum production. Overall appears to be pretty weak and debilitated. BUN 69 and creatinine 2.00, remains on Lasix by mouth, subconjunctival hemorrhage to the left eye continues to improve. Fluid balance +980 mL. Left lower extremity cellulitis improving Silvadene and Curlex continue. Appetite improving eating just about 50% of her meals does sit up at the edge of the bed and does use a bedside commode but able to do very little else. 11/10/2017: Lying in bed, afebrile, breathing and shortness of breath improving still has a raspy sounding voice and a cough with no sputum production. Solu-Medrol remains IV at 60 mg, Diamox added and Lasix continues to be given by mouth. Renal function worsening today. Subconjunctival hemorrhage to the left eye improving. Fluid balance -460 mL. Appetite continues to be low, eating only about 50% of her meals, only able to tolerate getting up to the bedside commode terms of activity, left lower extremity cellulitis improving Silvadene and Curlex continue. 11/09/2017: Lying in bed, afebrile, increased work of breathing, cough wheezing feels short of breath. Solu-Medrol increased, Diamox added Lasix switched to by mouth. Elevated kidney function today as well. Patient noted to have a subconjunctival hemorrhage to the left eye, likely due to coughing. 11/08/2017: Lying in bed, shortness of breath improving continues to be short of breath with minimal exertion. Mild conversational dyspnea, coarse cough, some sputum production, afebrile. Left lower extremity warm red tender dressed with Silvadene cream and Curlex wrap. Appetite is low, up with assistance. Last BM 11/07/2017. Remains on IV Lasix, negative fluid balance of 1520 mL. 11/07/2017: lying in bed continues to be short of breath at rest and with minimal exertion. Continues to have conversational dyspnea, has a cough no sputum afebrile. Left lower extremity with Silvadene cream and Curlex wrap and ampicillin .appetite low, up with assistance, last BM11/07/2017: REVIEW OF SYSTEMS: Done for constitutional ,cardiovascular, GI, pulmonary with relevant findings as above. CURRENT MEDICATIONS Tylenol, [place], Diamox, DuoNeb, amiodarone, ampicillin sulbactam, Eliquis, aspirin, Lipitor, Dulcolax, Pulmicort, Lexapro, as Pepcid, Feosol, Perforomist, Lasix, NovoLog, Synthroid, Imodium, Ativan, milk of magnesia, melatonin, Solu- Medrol, Lopressor, entresto, Silvadene cream, Fleet Enema, vancomycin. PHYSICAL EXAM VITAL SIGNS: Temperature 97.8, pulse 82, respiratory rate 18, blood pressure 133/78, oxygen saturation 92% on 3 L GENERAL APPEARANCE: Lying flat in bed, sleepy appearing. HEENT: Normocephalic, Pupils equal.has exophthalmos, subconjunctival hemorrhage noted to the left outer canthus, . JVD raised. Mass not palpable.: MOUTH: Oral cavity with white patches noted to buccal area and posterior pharynx RESPIRATORY: Respiratory effort increased. Lungs diminished with inspiratory and expiratory wheezing coarse cough no sputum, . CARDIOVASCULAR: First and second sounds normal.mild edema. ABDOMEN: Soft. Liver and spleen not palpable. No tenderness. No mass palpable. PSYCHIATRY: Alert and oriented x3. Mood and affect mildly anxious INTEGUMENT: Left lower extremity reddened, no drainage noted improving, INVESTIGATIONS: Sodium 143, chloride 95, carbon dioxide 42, BUN 69, creatinine 2.00, Accu-Cheks noted.. Blood cultures no growth after 72 hours ASSESSMENT: -acute on chronic congestive heart failure exacerbation from systolic dysfunction, from non ischemic cardiomyopathy ejection fraction 40-45%, slow to respond -Acute chronic obstructive pulmonary disease exacerbation in an ex-smoker, slow to respond -Acute renal failure likely prerenal due to dieuretic use. -moderate tricuspid regurgitation, nonrheumatic. -Severe secondary pulmonary hypertension secondary to chronic obstructive pulmonary disease. -Persistent atrial fibrillation/flutter chronically on Eliquis. -Subconjunctival hemorrhage left eye likely due to coughing episodes, improving -Restless leg syndrome, chronic. -Chronic fibromyalgia. -Primary osteoarthritis multiple joints, bilateral. -Chronic hypoxic respiratory failure from underlying chronic obstructive pulmonary disease on 3 L of oxygen at home. -Acute hypoxic respiratory failure from chronic obstructive pulmonary disease present on admission. -Hypothyroidism. -Medical debility. -Gait dysfunction uses a walker. -Peripheral arterial disease with prior history of stent. -Acute left lower extremity cellulitis, improving -Oral candidiasis in a patient who is on antibiotics -CODE STATUS FULL. PLAN: continue by mouth Lasix, nebulized bronchodilators, IV Solu-Medrol remains at 60 mg every 8 hours as patient's condition not much better and antibiotics in the form of vancomycin and Unasyn, Eliquis for anticoagulation.subconjunctival hemorrhage to left eye monitor closely.has oral candidiasis Diflucan ordered with routine oral care. not really ready for discharge planning yet. Plan of care discussed at the bedside patient is agreeable, we will follow closely. AN/SQQ [id number]([id number] SONAR SYSTEM JOURNEYMAN statement: Patient was seen and examined by nurse practitioner Cathie Monk and all elements of the case discussed with attending Dr. Ramos
[2017-11-11] MEDS ORDERED: FLUCONAZOLE 100 MG TAB PO ONE (17:26)
--- NOTE | 2017-11-11 18:34 | PN ---
PROGRESS NOTE DATE OF SERVICE: 11/11/17. ATTENDING NOTE: Patient seen and examined by me. I discussed with nurse practitioner, Aleshia. The patient remains short of breath at rest. Better overall. Did tolerate some diet. Tired. PHYSICAL EXAMINATION: Afebrile, pulse 92, respiration 18, blood pressure 127/69, pulse 92% on 3 L. LUNGS: Decreased breath sounds, some wheezing. Decreased some conjunctival hemorrhage. PSYCH: AO x3. Potassium 4.5, BUN 69, creatinine 2.0. ASSESSMENT: 1. Acute on chronic congestive heart failure from systolic dysfunction from non- ischemic cardiomyopathy, ejection fraction 40-45%, stable. 2. Acute chronic obstructive pulmonary disease exacerbation, slow to respond. 3. Acute renal failure. Creatinine has gone from 1.3 to 2. PLAN: Patient is on Diamox, DuoNeb, Cordarone, IV Unasyn, Eliquis, aspirin, IV Solu-Medrol, Entresto. Plan to continue current medication and treatment plan. We will hold off the next 2 doses of Lasix. Keep a close eye on the electrolytes. Entresto may have to be temporarily held until renal function gets better. Follow. Additionally, patient's oral cavity shows evidence of oropharyngeal candidiasis. Will give 1 dose of 100 mg Diflucan and then 50 mg a day. We will also do oral toileting. MMODL / IJN: [id number] /
[2017-11-11] MEDS: ATORVASTATIN 80 MG TAB PO SCH (20:35)
[2017-11-11 21:11] LABS: Glucose,Whole Blood 163 mg/dL (75-99)
[2017-11-11] MEDS: MELATONIN 5 MG TABLET PO SCH (23:37)
[2017-11-12] MEDS: IPRATROPIUM-ALBUTEROL 3 ML NEB INHALATION PRN (04:39)
[2017-11-12 06:19] LABS: Glucose,Whole Blood 225 mg/dL (75-99)
[2017-11-12] MEDS: INSULIN ASPART 100 UNIT/ML 1 ML 10 ML VIAL SQ SCH ×4 (06:37→21:03)
[2017-11-12] MEDS: LEVOTHYROXINE 137 MCG TAB PO SCH (06:38)
[2017-11-12] MEDS: IPRATROPIUM-ALBUTEROL 3 ML NEB INHALATION SCH ×4 (07:05→19:05)
[2017-11-12] MEDS: BUDESONIDE 0.5 MG/2 ML NEBU INHALATION SCH ×2 (07:05→19:05)
[2017-11-12] MEDS: FORMOTEROL FUMARATE 20 MCG/2 ML NEBU INHALATION SCH ×2 (07:05→19:05)
[2017-11-12 07:12] LABS: Calcium 8.5 mg/dL (8.4-10.2); Potassium 4.5 mmol/L (3.5-5.1)
[2017-11-12 07:17] LABS: Vancomycin,Random 34.2 ug/mL
[2017-11-12] MEDS: FUROSEMIDE 40 MG TAB PO SCH ×2 (07:24→19:48)
[2017-11-12] MEDS: SACUBITRIL/VALSARTAN 97 MG-103 MG TABLET PO SCH ×2 (08:49→17:10)
[2017-11-12] MEDS: FAMOTIDINE 20 MG TAB PO SCH (08:49)
[2017-11-12] MEDS: ESCITALOPRAM 20 MG TAB PO SCH (08:49)
[2017-11-12] MEDS: FERROUS SULFATE 325 MG TAB PO SCH ×2 (08:49→21:02)
[2017-11-12] MEDS: AMIODARONE 200 MG TAB PO SCH (08:49)
[2017-11-12] MEDS: APIXABAN 2.5 MG TABLET PO SCH ×2 (08:49→21:02)
[2017-11-12] MEDS: methylPREDNISolone SOD SUCCI 125 MG/2 ML VIAL IV SCH ×3 (08:49→23:58)
[2017-11-12] MEDS: ASPIRIN 81 MG PO SCH (08:49)
[2017-11-12] MEDS: acetaZOLAMIDE 250 MG TAB PO SCH ×3 (08:50→19:51)
[2017-11-12] MEDS: METOPROLOL TARTRATE 25 MG TAB PO SCH ×2 (08:50→17:09)
[2017-11-12] MEDS: AMPICILLIN-SULBACTAM 3 GM in SODIUM CHLORIDE 0.9% 100 ML IVPB SCH ×3 (08:50→23:58)
[2017-11-12] MEDS: FLUCONAZOLE 100 MG TAB PO SCH (08:51)
[2017-11-12] MEDS: HYDROcodone/APAP 5-325MG 1 EACH TAB PO PRN (09:09)
[2017-11-12] MEDS: LORazepam 0.5 MG TAB PO PRN ×2 (11:16→23:58)
[2017-11-12] MEDS: NON-FORMULARY DRUG (Colloidal Oatmeal [Eucerin Eczema Relief] 1 APPLIC) TOPICAL SCH ×2 (11:17→21:03)
[2017-11-12 11:58] LABS: Glucose,Whole Blood 208 mg/dL (75-99)
--- NOTE | 2017-11-12 15:16 | P.PN ---
Subjective Progress Note Date: 11/12/17 Principal diagnosis: Shortness of breath This is a pleasant 62-year-old female with known history of end-stage COPD, hypertension, hyperlipidemia, peripheral vascular disease with prior peripheral stenting, nonischemic cardiomyopathy, chronic persistent atrial fibrillation, prior cardiac ablation hypertension, hyperlipidemia, who is currently at [facility] for rehab, she presented to the hospital with a 2-3 day duration of worsening shortness of breath. Overall the patient states she's been doing fairly well. Patient does have a productive cough, positive PND and orthopnea. Positive peripheral edema. EKG on admission showed atrial fibrillation with an incomplete right bundle branch block pattern. Venous duplex study was negative for DVT in the left leg. Chest x-ray shows new mild congestive heart failure with pleural effusions as compared with prior exam. White blood cell count is normal, hemoglobin 11.2, platelet count 206. Sodium 140, potassium 4.4, chloride 90, CO2 41, BUN 28, creatinine 1.4. BNP level 10, 700., troponin 0.015, 0.012. TSH level 10.6. She was initiated on IV Lasix in the emergency room, she was also initiated on IV steroids and antibiotics. At the time of my examination this morning, she is sitting up in bed, continues to feel quite short of breath, significant wheezing. She also has evidence of significant redness and cellulitis in her left lower extremity. 11/07/2017 Patient seen and examined, overall states she is still short of breath, however she lies flat in bed and appears to be somewhat comfortable. Continues to have significant bilateral peripheral edema. Echo cardiac exam with Doppler study was repeated here which reveals an ejection fraction of 40-45%. Patient is diuresing, her weight and indicates that it is up 2 kg today. BUN 31, creatinine 1.3, hemoglobin 11.0. We will continue Lasix 40 mg twice a day IV. 11/12/2017 Patient seen and examined this morning, appears to be much more short of breath , significant edema overall. Persistent wheezy cough. BUN 80, creatinine 2.4, potassium 4.5. Blood pressure 90/50, heart rate in the 80s. 96% on 3 L of oxygen. Patient had made a decision today to be a no code. We would recommend a nephrology consultation. Objective - Vital Signs Vital signs: Vital Signs Temp 96.6 F L 11/12/17 11:30 Pulse 98 11/12/17 11:31 Resp 20 11/12/17 11:31 BP 98/52 11/12/17 11:30 Pulse Ox 96 11/12/17 11:30 Intake & Output 11/11/17 11/12/17 11/12/17 18:59 06:59 18:59 Intake Total 150 300 770 Output Total 1050 1150 425 Balance -900 -850 345 Intake: IV 250 .9 bolus ONCE 250 Intake, IV Titration 100 100 Amount Ampicillin-Sulbactam 3 gm 100 100 In Sodium Chloride 0.9% 100 ml @ 100 mls/hr IVPB QID YOSELIN Rx#:[id number] Oral 150 200 420 Output: Urine 1050 1150 425 Other: Voiding Method Bedside Commode Bedside Commode Bedside Commode # Voids 2 1 2 # Bowel Movements 1 1 - Exam PHYSICAL EXAMINATION: HEENT: Head is atraumatic, normocephalic. Pupils equal, round. Neck is supple. There is elevated jugular venous pressure. HEART EXAMINATION: Heart S1 and S2 irregularly irregular CHEST EXAMINATION: Lungs reveal decreased air exchange throughout, scattered coarse wheezing throughout. ABDOMEN: Soft, nontender. Bowel sounds are heard. No organomegaly noted. EXTREMITIES: 1+ peripheral pulses with 1+ evidence of peripheral edema more in the left lower extremity than the right, evidence of cellulitis in the left lower extremity NEUROLOGIC patient is awake, alert and oriented -3. - Labs CBC & Chem 7: 11/07/17 05:49 11/12/17 06:25 Labs: Abnormal Lab Results - Last 24 Hours (Table) 11/11/17 11/11/17 11/12/17 Range/Units 16:41 21:09 06:17 Chloride (98-107) mmol/L Carbon Dioxide (22-30) mmol/L BUN (7-17) mg/dL Creatinine (0.52-1.04) mg/dL Glucose (74-99) mg/dL POC Glucose (mg/dL) 194 H 163 H 225 H (75-99) mg/dL 11/12/17 11/12/17 Range/Units 06:25 11:33 Chloride 94 L (98-107) mmol/L Carbon Dioxide 40 H* (22-30) mmol/L BUN 80 H* (7-17) mg/dL Creatinine 2.40 H (0.52-1.04) mg/dL Glucose 208 H (74-99) mg/dL POC Glucose (mg/dL) 208 H (75-99) mg/dL Microbiology - Last 24 Hours (Table) 11/05/17 22:59 Blood Culture - Final Blood No Growth after 144 hours Assessment and Plan Plan: Assessment and plan #1 systolic congestive heart failure acute on chronic #2 exacerbation of COPD #3 known history of moderate to severe peripheral vascular disease with prior stenting #4 chronic persistent atrial fibrillation, on Eliquis for anticoagulation, patient did have prior ablation. #5 acute on chronic kidney injury #6 nonischemic cardiomyopathy #7 hypertension #8 hyperlipidemia #9 moderate to severe COPD Plan From cardiology's perspective, we will like to request a nephrology consultation. Patient has requested today to have a no CODE STATUS. We will continue other medications and continue to monitor her renal function. Overall prognosis guarded. DNP note has been reviewed, I agree with a documented findings and plan of care. Patient was seen and examined.
--- NOTE | 2017-11-12 16:03 | P.PN ---
Progress Note - Text Progress Note Date: 11/12/17 DATE OF SERVICE: 11/12/2017 PRESENTING COMPLAINT: Increasing shortness of breath HISTORY OF PRESENT ILLNESS: 82-year-old female who presented with increasing shortness of breath, unable to finish sentences short of breath at rest positive cough production, afebrile.Also had some redness and swelling concerning for cellulitis to the leftlowerextremity.Admittedforthesame. INTERVAL HISTORY: 11/12/2017: Lying in bed, resting quietly, afebrile, shortness of breath at rest but is able to lay flat in the bed,. Weak and debilitated only able to transfer from the bed to the bedside commode with a walker. BUN and creatinine continue to rise. Nephrology consulted. Discussion had regarding CODE STATUS and wishes to BE a no code. Appetite continues to be fair eating about 50% and sits up at the edge of the bed as well as using the bedside commode. 11/11/2017: Lying in bed, afebrile, breathing and shortness of breath about the same, raspiness in the throat has subsided, cough no sputum production. Overall appears to be pretty weak and debilitated. BUN 69 and creatinine 2.00, remains on Lasix by mouth, subconjunctival hemorrhage to the left eye continues to improve. Fluid balance +980 mL. Left lower extremity cellulitis improving Silvadene and Curlex continue. Appetite improving eating just about 50% of her meals does sit up at the edge of the bed and does use a bedside commode but able to do very little else. 11/10/2017: Lying in bed, afebrile, breathing and shortness of breath improving still has a raspy sounding voice and a cough with no sputum production. Solu-Medrol remains IV at 60 mg, Diamox added and Lasix continues to be given by mouth. Renal function worsening today. Subconjunctival hemorrhage to the left eye improving. Fluid balance -460 mL. Appetite continues to be low, eating only about 50% of her meals, only able to tolerate getting up to the bedside commode terms of activity, left lower extremity cellulitis improving Silvadene and Curlex continue. 11/09/2017: Lying in bed, afebrile, increased work of breathing, cough wheezing feels short of breath. Solu-Medrol increased, Diamox added Lasix switched to by mouth. Elevated kidney function today as well. Patient noted to have a subconjunctival hemorrhage to the left eye, likely due to coughing. 11/08/2017: Lying in bed, shortness of breath improving continues to be short of breath with minimal exertion. Mild conversational dyspnea, coarse cough, some sputum production, afebrile. Left lower extremity warm red tender dressed with Silvadene cream and Curlex wrap. Appetite is low, up with assistance. Last BM 11/07/2017. Remains on IV Lasix, negative fluid balance of 1520 mL. 11/07/2017: lying in bed continues to be short of breath at rest and with minimal exertion. Continues to have conversational dyspnea, has a cough no sputum afebrile. Left lower extremity with Silvadene cream and Curlex wrap and ampicillin .appetite low, up with assistance, last BM11/07/2017: REVIEW OF SYSTEMS: Done for constitutional ,cardiovascular, GI, pulmonary with relevant findings as above. CURRENT MEDICATIONS Tylenol, [place], Diamox, DuoNeb, amiodarone, ampicillin sulbactam, Eliquis, aspirin, Lipitor, Dulcolax, Pulmicort, Lexapro, Pepcid, Feosol, Diflucan Perforomist, Lasix, NovoLog, Synthroid, Imodium, Ativan, milk of magnesia, melatonin, Solu-Medrol, Lopressor, entresto, Silvadene cream, Fleet Enema, vancomycin. PHYSICAL EXAM VITAL SIGNS: Temperature 96.6, pulse 88, respiratory rate 20, oxygen saturation 96% on 3 L blood pressure 98/52. GENERAL APPEARANCE: Lying flat in bed, sleepy appearing. HENT: Normocephalic, oral cavity normal, external appearance of the ears/nose normal NECK:JVD raised. Mass not palpable.: EYES:Pupils equal.has exophthalmos, subconjunctival hemorrhage noted to the left outer canthus, MOUTH: Oral cavity with white patches noted to buccal area and posterior pharynx RESPIRATORY: Respiratory effort increased. Lungs diminished with inspiratory and expiratory wheezing coarse cough no sputum, . CARDIOVASCULAR: First and second sounds normal.mild edema. ABDOMEN: Soft. Liver and spleen not palpable. No tenderness. No mass palpable. PSYCHIATRY: Alert and oriented x3. Mood and affect mildly anxious INTEGUMENT: Left lower extremity reddened, no drainage noted improving, INVESTIGATIONS: Sodium sodium 142, potassium 4.5, BUN 80, creatinine 2.40, Accu-Cheks noted. Blood cultures no growth after 72 hours ASSESSMENT: -acute on chronic congestive heart failure exacerbation from systolic dysfunction, from non ischemic cardiomyopathy ejection fraction 40-45 percent worsening obstructive pulmonary disease exacerbation in an ex-smoker, slow to respond -Acute renal failure likely prerenal due to dieuretic use worsening. -moderate tricuspid regurgitation, nonrheumatic. -Severe secondary pulmonary hypertension secondary to chronic obstructive pulmonary disease. -Persistent atrial fibrillation/flutter chronically on Eliquis. -Subconjunctival hemorrhage left eye likely due to coughing episodes, improving -Restless leg syndrome, chronic. -Chronic fibromyalgia. -Primary osteoarthritis multiple joints, bilateral. -Chronic hypoxic respiratory failure from underlying chronic obstructive pulmonary disease on 3 L of oxygen at home. -Acute hypoxic respiratory failure from chronic obstructive pulmonary disease present on admission. -Hypothyroidism. -Medical debility. -Gait dysfunction uses a walker. -Peripheral arterial disease with prior history of stent. -Acute left lower extremity cellulitis, improving -Oral candidiasis in a patient who is on antibiotics -CODE STATUS FULL. PLAN: continue by mouth Lasix, BUN and creatinine continue to rise nephrology consult placed. nebulized bronchodilators, IV Solu-Medrol remains at 60 mg every 8 hours as patient's condition not much better and antibiotics in the form of vancomycin and Unasyn, Eliquis for anticoagulation.subconjunctival hemorrhage to left eye improving.has oral candidiasis Diflucan continues with routine oral care. not really ready for discharge planning yet. Plan of care discussed at the bedside patient is agreeable, we will follow closely. 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 Ramos
--- NOTE | 2017-11-12 16:06 | P.PN ---
Subjective Progress Note Date: 11/12/17 Principal diagnosis: Shortness of breath/COPD exacerbation Progress note dated 11/12/2017 This is a 62-year-old female with a history of combined systolic and diastolic heart failure with an ejection fraction of about 40%. In addition, she has stage IV COPD with an FEV1 that's 30% of predicted. In addition she has hypoxemic respiratory failure, severe pulmonary hypertension, chronic atrial fibrillation, CAD, hypothyroidism, DJD, fibromyalgia, hyperlipidemia, lower extremity cellulitis, and general medical debility. The patient is a no code. I would strongly consider a hospice evaluation or palliative care consultation. We'll leave that up to the primary. Overall prognosis is very poor. Today, she's very lethargic and somnolent. Difficult to arouse. She really is not able to give any history in terms of how she is feeling. She is laying his basically flat. Oxygen in place. Her lower semis are wrapped because of cellulitis. Objective - Vital Signs Vital signs: Vital Signs Temp 96.6 F L 11/12/17 11:30 Pulse 96 11/12/17 15:41 Resp 20 11/12/17 11:31 BP 98/52 11/12/17 11:30 Pulse Ox 96 11/12/17 11:30 Intake & Output 11/11/17 11/12/17 11/12/17 18:59 06:59 18:59 Intake Total 150 300 770 Output Total 1050 1150 425 Balance -900 -850 345 Intake: IV 250 .9 bolus ONCE 250 Intake, IV Titration 100 100 Amount Ampicillin-Sulbactam 3 gm 100 100 In Sodium Chloride 0.9% 100 ml @ 100 mls/hr IVPB QID [facility] Rx#:[id number] Oral 150 200 420 Output: Urine 1050 1150 425 Other: Voiding Method Bedside Commode Bedside Commode Bedside Commode # Voids 2 1 2 # Bowel Movements 1 1 - Exam No acute distress. The patient is very lethargic and sleepy and unable to verbalize any complaints or symptoms. HEENT examination is grossly unremarkable. Mucous membranes are moist. No oral lesions. Neck supple. Full range of motion. No adenopathy thyromegaly or neck vein distention. Cardiovascular examination reveals regular rhythm rate. S1-S2 normal. No S3 or S4. No discernible murmur noted. Lungs diffuse rhonchi. No wheezes are noted. A few crackles are noted. Breath sounds are severely diminished. There is slight prolongation. Abdomen soft bowel sounds are heard. No masses or tenderness. Extremities are intact. There is evidence of bilateral lower extremity cellulitis. There is edema in the lower semis bilaterally. No cyanosis or clubbing.. Skin reveals diffuse areas of ecchymoses. Neurologic examination cannot be adequately performed. - Labs CBC & Chem 7: 11/07/17 05:49 11/12/17 06:25 Labs: Abnormal Lab Results - Last 24 Hours (Table) 11/11/17 11/11/17 11/12/17 Range/Units 16:41 21:09 06:17 Chloride (98-107) mmol/L Carbon Dioxide (22-30) mmol/L BUN (7-17) mg/dL Creatinine (0.52-1.04) mg/dL Glucose (74-99) mg/dL POC Glucose (mg/dL) 194 H 163 H 225 H (75-99) mg/dL 11/12/17 11/12/17 Range/Units 06:25 11:33 Chloride 94 L (98-107) mmol/L Carbon Dioxide 40 H* (22-30) mmol/L BUN 80 H* (7-17) mg/dL Creatinine 2.40 H (0.52-1.04) mg/dL Glucose 208 H (74-99) mg/dL POC Glucose (mg/dL) 208 H (75-99) mg/dL Microbiology - Last 24 Hours (Table) 11/05/17 22:59 Blood Culture - Final Blood No Growth after 144 hours Assessment and Plan (1) COPD exacerbation Current Visit: Yes Status: Acute Code(s): J44.1 - CHRONIC OBSTRUCTIVE PULMONARY DISEASE W (ACUTE) EXACERBATION SNOMED Code(s): 269671279190399 (2) Chronic a-fib Current Visit: Yes Status: Acute Code(s): I48.2 - CHRONIC ATRIAL FIBRILLATION SNOMED Code(s): 000953232 (3) Congestive heart failure Current Visit: Yes Status: Acute Code(s): I50.9 - HEART FAILURE, UNSPECIFIED SNOMED Code(s): 93485668 (4) Dyspnea Current Visit: Yes Status: Acute Code(s): R06.00 - DYSPNEA, UNSPECIFIED SNOMED Code(s): 497271229 (5) Hypoxia Current Visit: Yes Status: Acute Code(s): R09.02 - HYPOXEMIA SNOMED Code(s ): 099608674 (6) Left leg cellulitis Current Visit: Yes Status: Acute Code(s): L03.116 - CELLULITIS OF LEFT LOWER LIMB SNOMED Code(s): 082698488 (7) Renal insufficiency syndrome Current Visit: Yes Status: Acute Code(s): N28.9 - DISORDER OF KIDNEY AND URETER, UNSPECIFIED SNOMED Code(s): 346425642 (8) Acute exacerbation of chronic obstructive airways disease Current Visit: No Status: Acute Code(s): J44.1 - CHRONIC OBSTRUCTIVE PULMONARY DISEASE W (ACUTE) EXACERBATION SNOMED Code(s): 953057532 (9) Acute respiratory failure Current Visit: No Status: Acute Code(s): J96.00 - ACUTE RESPIRATORY FAILURE , UNSP W HYPOXIA OR HYPERCAPNIA SNOMED Code(s): 99181628 (10) Atrial fibrillation with RVR Current Visit: No Status: Acute Code(s): I48.91 - UNSPECIFIED ATRIAL FIBRILLATION SNOMED Code(s): 553736617416459 (11) CAD (coronary artery disease) Current Visit: No Status: Acute Code(s): I25.10 - ATHSCL HEART DISEASE OF [place] CORONARY ARTERY W/O ANG PCTRS SNOMED Code(s): 17240817 (12) COPD (chronic obstructive pulmonary disease) Current Visit: No Status: Acute Code(s): J44.9 - CHRONIC OBSTRUCTIVE PULMONARY DISEASE, UNSPECIFIED SNOMED Code(s): 71229393 (13) Congestive heart failure Current Visit: No Status: Acute Code(s): I50.9 - HEART FAILURE, UNSPECIFIED SNOMED Code(s): 78527399 (14) ESBL E. coli carrier Current Visit: No Status: Acute Code(s): Z22.39 - CARRIER OF OTHER SPECIFIED BACTERIAL DISEASES SNOMED Code(s): 09788219 (15) Hypothyroid Current Visit: No Status: Acute Code(s): E03.9 - HYPOTHYROIDISM, UNSPECIFIED SNOMED Code(s): 93633289 (16) PAD (peripheral artery disease) Current Visit: No Status: Acute Code(s): I73.9 - PERIPHERAL VASCULAR DISEASE , UNSPECIFIED SNOMED Code(s): 605441715 (17) Respiratory failure Current Visit: No Status: Acute Code(s): J96.90 - RESPIRATORY FAILURE, UNSP , UNSP W HYPOXIA OR HYPERCAPNIA SNOMED Code(s): 832360382 (18) Systolic and diastolic CHF, acute Current Visit: No Status: Acute Code(s): I50.41 - ACUTE COMBINED SYSTOLIC AND DIASTOLIC (CONGESTIVE) HRT FAIL SNOMED Code(s): 422310900183865 Plan: Plan dated 11/12/2017 The patient's doing poorly. The patient is now a no code. With the consider significant only at this time consideration of a palliative care consult or hospice evaluation. I think it's appropriate for this patient at this time. The patient's very lethargic and sleepy. The patient barely arouses. We'll review the chest x-ray labs and medications. Time with Patient: Less than 30
[2017-11-12 16:44] LABS: Glucose,Whole Blood 130 mg/dL (75-99)
--- NOTE | 2017-11-12 18:20 | PN ---
PROGRESS NOTE DATE OF SERVICE: 11/12/17 ATTENDING NOTE: The patient seen and examined by me. Discussed with nurse practitioner, Ms. Monk. The patient is weak and tired. Did hold off patient's Lasix yesterday because of the acute renal failure component. The patient is eating a little bit short of breath yet again. Tired. PHYSICAL EXAMINATION: Temperature 96, pulse 88, respiration 22, blood pressure 98/52. LUNGS: Poor air entry. Answering questions. Tired-appearing. Potassium 4.5, BUN 18, creatinine 2.40. ASSESSMENT: 1. Acute renal failure, worsening, likely prerenal. 2. Multiple medical problems. PLAN: 1. Continue to hold diuretics. The patient is on IV Solu-Medrol. 2. Advanced care planning. Did have a lengthy talk with the patient. Overall poor prognosis given multiple medical problems. The patient understands the same. I did explain we will continue to treat her but in case she has gone into respiratory failure or distress, it may not be a good idea to intubate her. She agrees with the same. She has agreed to become DO NOT RESUSCITATE. Times spent on this advance care planning is about 20 to 25 minutes in addition to the progress note. MMODL / IJN: [id number] /
[2017-11-12 20:56] LABS: Glucose,Whole Blood 174 mg/dL (75-99)
[2017-11-12] MEDS: MELATONIN 5 MG TABLET PO SCH (21:02)
[2017-11-12] MEDS: ATORVASTATIN 80 MG TAB PO SCH (21:02)
[2017-11-13 02:03] LABS: Glucose,Whole Blood 160 mg/dL (75-99)
[2017-11-13 06:11] LABS: Basophils % (A) 0 %; Eosinophils % (A) 0 %; HCT 37.3 % (34.0-46.0); HGB 10.3 gm/dL (11.4-16.0); Hypochromasia Marked; Lymphocytes # (A) 0.2 k/uL (1.0-4.8); Lymphocytes % (A) 2 %; MCH 31.5 pg (25.0-35.0); MCHC 27.6 g/dL (31.0-37.0); MCV 114.1 fL (80.0-100.0); Macrocytosis Marked; Mean Platelet Volume 8.6; Monocytes # (A) 0.3 k/uL (0-1.0); Monocytes % (A) 4 %; Neutrophils # (A) 8.6 k/uL (1.3-7.7); Neutrophils % (A) 94 %; Platelet Count 177 k/uL (150-450); RBC 3.27 m/uL (3.80-5.40); RDW 14.9 % (11.5-15.5); WBC 9.1 k/uL (3.8-10.6)
[2017-11-13 06:21] LABS: Calcium 8.4 mg/dL (8.4-10.2); Potassium 4.7 mmol/L (3.5-5.1)
[2017-11-13 06:34] LABS: Glucose,Whole Blood 143 mg/dL (75-99)
[2017-11-13] MEDS: LEVOTHYROXINE 137 MCG TAB PO SCH (06:51)
[2017-11-13] MEDS: INSULIN ASPART 100 UNIT/ML 1 ML 10 ML VIAL SQ SCH ×4 (06:52→23:23)
[2017-11-13] MEDS: BUDESONIDE 0.5 MG/2 ML NEBU INHALATION SCH ×2 (08:07→19:45)
[2017-11-13] MEDS: IPRATROPIUM-ALBUTEROL 3 ML NEB INHALATION SCH ×4 (08:07→19:45)
[2017-11-13] MEDS: FORMOTEROL FUMARATE 20 MCG/2 ML NEBU INHALATION SCH ×2 (08:07→19:45)
[2017-11-13] MEDS: SACUBITRIL/VALSARTAN 97 MG-103 MG TABLET PO SCH (09:15)
[2017-11-13] MEDS: acetaZOLAMIDE 250 MG TAB PO SCH (09:15)
[2017-11-13] MEDS: FUROSEMIDE 40 MG TAB PO SCH (09:15)
[2017-11-13] MEDS: FERROUS SULFATE 325 MG TAB PO SCH ×2 (09:16→22:59)
[2017-11-13] MEDS: FAMOTIDINE 20 MG TAB PO SCH (09:16)
[2017-11-13] MEDS: FLUCONAZOLE 100 MG TAB PO SCH (09:16)
[2017-11-13] MEDS: methylPREDNISolone SOD SUCCI 125 MG/2 ML VIAL IV SCH (09:16)
[2017-11-13] MEDS: APIXABAN 2.5 MG TABLET PO SCH ×2 (09:17→22:59)
[2017-11-13] MEDS: METOPROLOL TARTRATE 25 MG TAB PO SCH ×2 (09:17→16:40)
[2017-11-13] MEDS: NON-FORMULARY DRUG (Colloidal Oatmeal [Eucerin Eczema Relief] 1 APPLIC) TOPICAL SCH (09:17)
[2017-11-13] MEDS: AMIODARONE 200 MG TAB PO SCH (09:17)
[2017-11-13] MEDS: ESCITALOPRAM 20 MG TAB PO SCH (09:18)
[2017-11-13] MEDS: ASPIRIN 81 MG PO SCH (09:18)
--- NOTE | 2017-11-13 09:33 | P.NPCON ---
History of Present Illness - Reason for Consult acute renal failure - History of Present Illness Reason for consultation: Acute kidney injury and chronic kidney disease History of present illness: Patient is a 62-year-old female seen in renal consultation for acute kidney injury and chronic kidney disease. Patient has chronic kidney disease stage III with baseline creatinine in the range of 1.3-1.5 secondary to nephrosclerosis and cardiorenal syndrome. Patient presented to the hospital with dyspnea. Her blood pressure has been quite labile in the range of systolic 80s to 130s. She is noted to have ejection fraction of 40-45% with moderate tricuspid regurgitation. Patient was initially receiving IV diuresis and subsequently changed to 40 mg orally twice daily along with Diamox. Diuretics are held starting 11/12/2017 due to worsening renal failure. Her creatinine was 1.4 on admission and is up to 3.0 today. Patient states her edema has significantly improved since admission. She is also noted to have severe COPD and continues to be quite dyspneic. She is noted to have conversational dyspnea. She denies any vomiting or diarrhea. Oral intake is fair. She has been waiting. No hematuria or dysuria. Vital signs are stable. General: The patient appeared well nourished and normally developed. HEENT: Head exam is unremarkable. Neck is without jugular venous distension. LUNGS: Lungs are clear to auscultation and percussion. Breath sounds decreased. HEART: Rate and Rhythm are regular. First and second heart sounds normal. No murmurs, rubs or gallops. ABDOMEN: Abdominal exam reveals normal bowel sounds. Non-tender and non- distended. No evidence of peritonitis. EXTREMITITES: Trace edema in the right lower extremity. 1+ edema in the left lower extremity. Past Medical History Past Medical History: Atrial Fibrillation, Coronary Artery Disease (CAD), Heart Failure, COPD, Fibromyalgia, GERD/Reflux, Hyperlipidemia, Hypertension, Myocardial Infarction ([place]), Osteoarthritis (OA), Renal Disease, Syncope, Thyroid Disorder Additional Past Medical History / Comment(s): COPD and the patient is on home O2 at 3 L nasal cannula , congestion heart failure history of atrial fibrillation/flutter/atrial tachycardia with previous cardiac ablation, fibromyalgia, hyperlipidemia, hypertension, colonic polyps, previous coronary artery disease and reported history of myocardial infarction, hypothyroidism, degenerative arthritis, "non ischemiccardio myopathy", and severe peripheral vascular disease, severe epistaxis from multiple anticoagulants. Plavix has been discontinued per Dr. Payton. Patient to be kept on Eliquis and aspirin, PVOD and previous stent in the LLE Last Myocardial Infarction Date:: 2013 History of Any Multi-Drug Resistant Organisms: ESBL Date of last positivie culture/infection: 09/24/17 MDRO Source:: ESBL URINE Past Surgical History: Bowel Resection, Cardiac Ablation, Section, Heart Catheterization, Tubal Ligation Additional Past Surgical History / Comment(s): Bowel resection, cardiac ablation for atrial flutter, , cardiac catheterization, tubal ligation , stent left leg Past Anesthesia/Blood Transfusion Reactions: Motion Sickness Additional Past Anesthesia/Blood Transfusion Reaction / Comment(s): CLAUSTROPHOBIA Past Psychological History: Anxiety, Depression Additional Psychological History / Comment(s): PT LIVES ALONE IN APT THAT HAS 4 STEPS TO ENTER. PT IS INDEPENDANT HAS WALKER TO USE WHEN NEEDED, HOME 02, NEBULIZER, BSC, shower chair. 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 HAS 1 INDOOR CAT.received [facility] home care nurse Smoking Status: Former smoker Past Alcohol Use History: None Reported Additional Past Alcohol Use History / Comment(s): Patient smoked for 40 years one and a half packs per day and quit in October 2016. She lives in an apartment by herself and has a cat in the home. She is also on home O2, she has a walker, nebulizer bedside commode, shower chair. 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 Past Drug Use History: None Reported - Past Family History Mother Family Medical History: Cancer Father Family Medical History: Coronary Artery Disease (CAD) Medications and Allergies Home Medications Medication Instructions Recorded Confirmed Type Levalbuterol Tartrate [Xopenex Hfa 2 puff INHALATION 01/21/16 11/05/17 History Inhaler] RT-Q6H@00,06,12,18 Aspirin EC [Ecotrin Low Dose] 81 mg PO HS 12/14/16 11/05/17 History Famotidine [Pepcid] 20 mg PO DAILY 12/14/16 11/05/17 History Melatonin 5 mg PO HS 12/14/16 11/05/17 History Atorvastatin [Lipitor] 80 mg PO HS 01/15/17 11/05/17 History Ferrous Sulfate [Iron (65 MG 325 mg PO BID 01/15/17 11/05/17 History Elemental)] Formoterol Fumarate [Perforomist] 20 mcg INHALATION RT-BID@0800,1700 01/15/17 History Budesonide [Pulmicort] 0.5 mg INHALATION RT-BID@1000,1400 06/18/17 11/05/17 History Escitalopram [Lexapro] 20 mg PO DAILY 06/18/17 11/05/17 History Ipratropium-Albuterol Nebulize 3 ml INHALATION RT-BID PRN 06/18/17 11/05/17 History [Duoneb 0.5 mg-3 mg/3 ml Soln] Levalbuterol Nebulized [Xopenex 1.25 mg INHALATION RT-TID 08/09/17 11/05/17 History Nebulized] Sacubitril/Valsartan [Entresto 97 1 tab PO BID@0800,1700 08/09/17 11/05/17 History mg-103 mg Tablet] Amiodarone [Cordarone] 200 mg PO DAILY #30 tab 09/03/17 11/05/17 Rx Bisacodyl [Dulcolax] 10 mg PO DAILY PRN tablet. 09/03/17 11/05/17 Rx HYDROcodone/APAP 5-325MG [[place] 1 tab PO Q6HR PRN 09/24/17 11/05/17 History 5-325] LORazepam [Ativan] 0.5 mg PO Q8H PRN 09/24/17 11/05/17 History Magnesium Hydroxide [Milk of 2,400 mg PO DAILY PRN 09/24/17 11/05/17 History Magnesia] Metoprolol Tartrate [Lopressor] 25 mg PO BID@0800,1700 09/24/17 11/05/17 History Na Phos,M-B/Na Phos,Di-Ba [Fleet 133 ml RECTAL DAILY PRN 09/24/17 11/05/17 History Adult] Apixaban [Eliquis] 2.5 mg PO BID #30 tablet 10/01/17 11/05/17 Rx Torsemide [Demadex] 20 mg PO DAILY #30 tab 10/01/17 11/05/17 Rx Acetaminophen [Tylenol] 650 mg PO Q4H PRN 11/05/17 11/05/17 History Cephalexin [Keflex] 500 mg PO Q12HR 11/05/17 11/05/17 History Colloidal Oatmeal [Eucerin Eczema 1 applic TOPICAL BID 11/05/17 11/05/17 History Relief] Furosemide [Lasix] 40 mg PO MOTH 11/05/17 11/05/17 History Levothyroxine Sodium [Synthroid] 137 mcg PO DAILY 11/05/17 11/05/17 History Loperamide [Imodium] 2 mg PO QID PRN 11/05/17 11/05/17 History SILVER sulfADIAZINE CREAM 1 applic TOPICAL DAILY applic 11/08/17 Rx [Silvadene Cream] Allergies Allergy/AdvReac Type Severity Reaction Status Date / Time ciprofloxacin HCl Allergy Severe Anaphylaxis Verified 11/05/17 22:53 [From Cipro] budesonide [From Symbicort] AdvReac Rapid Verified 11/05/17 22:53 Heart Rate formoterol fumarate AdvReac Rapid Verified 11/05/17 22:53 [From Symbicort] Heart Rate Physical Exam Vitals: Vital Signs Temp Pulse Pulse Pulse Resp BP Pulse Ox 11/13/17 08:33 88 11/13/17 08:17 84 11/13/17 08:09 80 11/13/17 04:00 97.5 F L 83 18 107/61 95 11/13/17 00:00 97.1 F L 89 20 102/61 100 11/12/17 19:55 93 20 11/12/17 19:54 97.0 F L 93 20 103/89 95 11/12/17 19:27 92 11/12/17 19:18 92 11/12/17 19:17 89 11/12/17 19:05 87 11/12/17 16:00 97.0 F L 85 98 20 114/56 93 L 11/12/17 15:41 96 11/12/17 15:20 88 11/12/17 11:31 88 98 20 11/12/17 11:30 96.6 F L 88 20 98/52 96 11/12/17 10:53 80 11/12/17 10:43 78 Intake and Output 11/12/17 11/13/17 11/13/17 22:59 06:59 14:59 Intake Total 80 Balance 80 Intake: Oral 80 Other: Voiding Method Bedside Commode Bedside Commode # Voids 1 1 Weight 81 kg Results - Lab Results Most recent lab results Calcium 8.4 mg/dL (8.4-10.2) 11/13/17 05:48 11/13/17 05:48 11/13/17 05:48 Assessment and Plan Plan: Assessment: #1. Nonoliguric acute kidney injury secondary to ATN secondary to hypotension and diuresis. Creatinine up to 3.0 today. Vancomycin level also noted to be on the higher side at 34.2 as of November 12. #2. Chronic kidney disease stage III secondary to nephrosclerosis and cardiac renal syndrome with baseline creatinine in the range of 1.3-1.5. #3. Systolic CHF with ejection fraction of 40-45% with moderate tricuspid regurgitation. #4. Volume overload. Improving since admission. [place] #5. Acute COPD maintained on IV steroids. #5. Lower extremity cellulitis maintained on antibiotics. Plan: Continue to hold diuretics for now. Hold entresto. Check chest x-ray today. Discontinue Fleet enemas. Repeat electrolytes in the morning. Check urinalysis. Accurate I's and O's. Discussed with the patient regarding potential need for renal replacement therapy in the next 24-72 hours depending on her renal function and volume status. Patient seems very hesitant but will think about it. Thank you for the consultation. I will continue to follow the patient with you during her hospital stay.
[2017-11-13] MEDS: HYDROcodone/APAP 5-325MG 1 EACH TAB PO PRN ×3 (09:40→23:24)
[2017-11-13] MEDS: LORazepam 0.5 MG TAB PO PRN (09:40)
[2017-11-13 09:50] VITALS: BMI 30.6
--- NOTE | 2017-11-13 10:27 | XR ---
EXAMINATION TYPE: XR chest 2V DATE OF EXAM: 11/13/2017 COMPARISON: 11/09/2017 HISTORY: Shortness of breath TECHNIQUE: Frontal and lateral views of the chest are obtained. FINDINGS: Scattered senescent parenchymal changes noted. No evidence for infiltrate. No evidence for atelectasis. Pulmonary venous congestion with cardiomegaly and interstitial edema. Small pleural effusions are see n. Mediastinal structures are stable and grossly unremarkable. No evidence for hilar prominence. Degenerative changes dorsal spine. IMPRESSION: 1. Changes of mild congestive failure.
[2017-11-13 12:19] LABS: Glucose,Whole Blood 162 mg/dL (75-99)
[2017-11-13] MEDS: AMPICILLIN-SULBACTAM 3 GM in SODIUM CHLORIDE 0.9% 100 ML IVPB SCH ×2 (12:23→23:03)
--- NOTE | 2017-11-13 14:47 | P.PN ---
Subjective Progress Note Date: 11/13/17 Principal diagnosis: Acute on chronic hypoxic respiratory failure secondary to COPD exacerbation and systolic congestive heart failure This is a 62-year-old female with a history of combined systolic and diastolic heart failure with an ejection fraction of about 40%. In addition, she has stage IV COPD with an FEV1 that's 30% of predicted. In addition she has hypoxemic respiratory failure, severe pulmonary hypertension, chronic atrial fibrillation, CAD, hypothyroidism, DJD, fibromyalgia, hyperlipidemia, lower extremity cellulitis, and general medical debility. The patient is a no code. I would strongly consider a hospice evaluation or palliative care consultation. We'll leave that up to the primary. Overall prognosis is very poor. Today, she's very lethargic and somnolent. Difficult to arouse. She really is not able to give any history in terms of how she is feeling. She is laying his basically flat. Oxygen in place. Her lower semis are wrapped because of cellulitis. On 11/13/2017 patient seen in follow-up on [facility] care floor. Resting in bed , somnolent, but easily arousable to verbal stimuli. Denies any acute distress , lung sounds are generally diminished, with a few bibasilar crackles. Wearing 3 L per nasal cannula with O2 sat at 98%. Remains afebrile. Chest x-ray from 11/13/2017 shows pulmonary venous congestion and cardiomegaly with interstitial edema. Small pleural effusions are seen. Patient's blood pressures have been labile and ranging from 80s to 130s systolic. Patient was initially receiving IV diuresis, which was subsequently changed to oral diuretics, in view of her worsening renal function. On today's lab work, her BUN is up to 93, and creatinine is up to 3. Per nephrology, Entresto, Diamox and Lasix are on hold, renal replacement therapy is being considered at this point. Patient's bilateral lower extremity edema is improving. She does still have some conversational dyspnea, but no acute respiratory distress was noted. Her level of activity is limited. Oral intake is poor. Patient continues on Unasyn for empiric antibiotic coverage. Was cultures show no growth. No wheezing noted. We will wean down the Solu-Medrol to 40 mg every 12 hours. Objective - Vital Signs Vital signs: Vital Signs Temp 97.0 F L 11/13/17 11:12 Pulse 90 11/13/17 12:24 Resp 20 11/13/17 11:13 BP 81/55 11/13/17 11:12 Pulse Ox 98 11/13/17 11:12 Intake & Output 11/12/17 11/13/17 11/13/17 18:59 06:59 18:59 Intake Total 770 80 220 Output Total 425 100 Balance 345 80 120 Weight 81 kg 81 kg Intake: IV 250 .9 bolus ONCE 250 Intake, IV Titration 100 Amount Ampicillin-Sulbactam 3 gm 100 In Sodium Chloride 0.9% 100 ml @ 100 mls/hr IVPB QID [facility] Rx#:[id number] Oral 420 80 220 Output: Urine 425 100 Other: Voiding Method Bedside Commode Bedside Commode Bedside Commode # Voids 2 1 1 # Bowel Movements 1 1 - Exam No acute distress. The patient is very lethargic but easily arousable to verbal stimuli, still has conversational dyspnea, HEENT examination is grossly unremarkable. Mucous membranes are moist. No oral lesions. Neck supple. Full range of motion. No adenopathy thyromegaly or neck vein distention. Cardiovascular examination reveals regular rhythm rate. S1-S2 normal. No S3 or S4. No discernible murmur noted. Lungs diffuse rhonchi. No wheezes are noted. A few bibasilar crackles. Breath sounds are severely diminished. There is slight prolongation. Abdomen soft bowel sounds are heard. No masses or tenderness. Extremities are intact. There is evidence of bilateral lower extremity cellulitis. There is edema in the lower semis bilaterally. No cyanosis or clubbing.. Skin reveals diffuse areas of ecchymoses. Neurologic examination cannot be adequately performed. - Labs CBC & Chem 7: 11/13/17 05:48 11/13/17 05:48 Labs: Abnormal Lab Results - Last 24 Hours (Table) 11/12/17 11/12/17 11/13/17 Range/Units 16:39 20:53 02:01 RBC (3.80-5.40) m/uL Hgb (11.4-16.0) gm/dL MCV (80.0-100.0) fL MCHC (31.0-37.0) g/dL Neutrophils # (1.3-7.7) k/uL Lymphocytes # (1.0-4.8) k/uL Chloride (98-107) mmol/L Carbon Dioxide (22-30) mmol/L BUN (7-17) mg/dL Creatinine (0.52-1.04) mg/dL Glucose (74-99) mg/dL POC Glucose (mg/dL) 130 H 174 H 160 H (75-99) mg/dL Stool Occult Blood (Negative) 11/13/17 11/13/17 11/13/17 Range/Units 05:48 05:48 06:29 RBC 3.27 L (3.80-5.40) m/uL Hgb 10.3 L (11.4-16.0) gm/dL MCV 114.1 H (80.0-100.0) fL MCHC 27.6 L (31.0-37.0) g/dL Neutrophils # 8.6 H (1.3-7.7) k/uL Lymphocytes # 0.2 L (1.0-4.8) k/uL Chloride 94 L (98-107) mmol/L Carbon Dioxide 38 H (22-30) mmol/L BUN 93 H* (7-17) mg/dL Creatinine 3.00 H (0.52-1.04) mg/dL Glucose 153 H (74-99) mg/dL POC Glucose (mg/dL) 143 H (75-99) mg/dL Stool Occult Blood (Negative) 11/13/17 11/13/17 Range/Units 09:31 12:06 RBC (3.80-5.40) m/uL Hgb (11.4-16.0) gm/dL MCV (80.0-100.0) fL MCHC (31.0-37.0) g/dL Neutrophils # (1.3-7.7) k/uL Lymphocytes # (1.0-4.8) k/uL Chloride (98-107) mmol/L Carbon Dioxide (22-30) mmol/L BUN (7-17) mg/dL Creatinine (0.52-1.04) mg/dL Glucose (74-99) mg/dL POC Glucose (mg/dL) 162 H (75-99) mg/dL Stool Occult Blood Positive H (Negative) Assessment and Plan Plan: Assessment: #1. Acute on chronic hypoxic respiratory failure secondary to acute COPD exacerbation, and acute systolic congestive heart failure, ejection fraction of 40-45% #2. Dyspnea secondary to the above #3. Advanced oxygen-dependent COPD, baseline FEV1 of 30% of predicted #4. Moderate to severe pulmonary hypertension #5. Chronic kidney disease stage III, with baseline creatinine in the range of 1.3-1.5 secondary to nephrosclerosis and cardiorenal syndrome #6. History of moderate to severe peripheral vascular disease with prior stenting #7. Chronic persistent atrial fibrillation, on Eliquis for anticoagulation, history of prior ablation #8. Hypertension #9. Hyperlipidemia #10. Coronary artery disease #11. Degenerative arthritis, fibromyalgia #12. Cellulitis of the left lower extremity #13. Poor overall functional performance based on the above-mentioned multiple comorbidities Plan: We'll decreased the Solu-Medrol down to 40 mg every 12 hours, continue with empiric antibiotics, continue with nebulized treatments. Nephrology and cardiology notes have been reviewed. Patient is now on DO NOT RESUSCITATE status. In view of her multiple comorbidities, poor functional status recommendation for palliative care should be considered. Continue there is the medical treatments. I performed a history & physical examination of the patient and discussed their management with my nurse practitioner, Ely Shetty. I reviewed the nurse practitioner's note and agree with the documented findings and plan of care. Lung sounds are diminished, with a few bibasilar crackles. The findings and the impression was discussed with the patient. I attest to the documentation by the nurse practitioner. Time with Patient: Less than 30
--- NOTE | 2017-11-13 15:29 | P.PN ---
Subjective Progress Note Date: 11/13/17 Principal diagnosis: Shortness of breath This is a pleasant 62-year-old female with known history of end-stage COPD, hypertension, hyperlipidemia, peripheral vascular disease with prior peripheral stenting, nonischemic cardiomyopathy, chronic persistent atrial fibrillation, prior cardiac ablation hypertension, hyperlipidemia, who is currently at [facility] for rehab, she presented to the hospital with a 2-3 day duration of worsening shortness of breath. Overall the patient states she's been doing fairly well. Patient does have a productive cough, positive PND and orthopnea. Positive peripheral edema. EKG on admission showed atrial fibrillation with an incomplete right bundle branch block pattern. Venous duplex study was negative for DVT in the left leg. Chest x-ray shows new mild congestive heart failure with pleural effusions as compared with prior exam. White blood cell count is normal, hemoglobin 11.2, platelet count 206. Sodium 140, potassium 4.4, chloride 90, CO2 41, BUN 28, creatinine 1.4. BNP level 10, 700., troponin 0.015, 0.012. TSH level 10.6. She was initiated on IV Lasix in the emergency room, she was also initiated on IV steroids and antibiotics. At the time of my examination this morning, she is sitting up in bed, continues to feel quite short of breath, significant wheezing. She also has evidence of significant redness and cellulitis in her left lower extremity. 11/07/2017 Patient seen and examined, overall states she is still short of breath, however she lies flat in bed and appears to be somewhat comfortable. Continues to have significant bilateral peripheral edema. Echo cardiac exam with Doppler study was repeated here which reveals an ejection fraction of 40-45%. Patient is diuresing, her weight and indicates that it is up 2 kg today. BUN 31, creatinine 1.3, hemoglobin 11.0. We will continue Lasix 40 mg twice a day IV. 11/12/2017 Patient seen and examined this morning, appears to be much more short of breath , significant edema overall. Persistent wheezy cough. BUN 80, creatinine 2.4, potassium 4.5. Blood pressure 90/50, heart rate in the 80s. 96% on 3 L of oxygen. Patient had made a decision today to be a no code. We would recommend a nephrology consultation. 11/13/2017 Patient seen and examined this morning, very short of breath today. Significantly wheezy. Diuretics have been placed on hold as well as her Entresto by nephrology. BUN 93, creatinine 3.0. Objective - Vital Signs Vital signs: Vital Signs Temp 97.0 F L 11/13/17 11:12 Pulse 90 11/13/17 12:24 Resp 20 11/13/17 11:13 BP 81/55 11/13/17 11:12 Pulse Ox 98 11/13/17 11:12 Intake & Output 11/12/17 11/13/17 11/13/17 18:59 06:59 18:59 Intake Total 770 80 220 Output Total 425 100 Balance 345 80 120 Weight 81 kg 81 kg Intake: IV 250 .9 bolus ONCE 250 Intake, IV Titration 100 Amount Ampicillin-Sulbactam 3 gm 100 In Sodium Chloride 0.9% 100 ml @ 100 mls/hr IVPB QID [facility] Rx#:[id number] Oral 420 80 220 Output: Urine 425 100 Other: Voiding Method Bedside Commode Bedside Commode Bedside Commode # Voids 2 1 1 # Bowel Movements 1 1 - Exam PHYSICAL EXAMINATION: 62-year-old female, in mild distress today. HEENT: Head is atraumatic, normocephalic. Pupils equal, round. Neck is supple. There is elevated jugular venous pressure. HEART EXAMINATION: Heart S1 and S2 irregularly irregular CHEST EXAMINATION: Lungs reveal decreased air exchange throughout, scattered coarse wheezing throughout. ABDOMEN: Soft, nontender. Bowel sounds are heard. No organomegaly noted. EXTREMITIES: 1+ peripheral pulses with 1+ evidence of peripheral edema more in the left lower extremity than the right, evidence of cellulitis in the left lower extremity NEUROLOGIC patient is awake, alert and oriented -3. - Labs CBC & Chem 7: 11/13/17 05:48 11/13/17 05:48 Labs: Abnormal Lab Results - Last 24 Hours (Table) 11/12/17 11/12/17 11/13/17 Range/Units 16:39 20:53 02:01 RBC (3.80-5.40) m/uL Hgb (11.4-16.0) gm/dL MCV (80.0-100.0) fL MCHC (31.0-37.0) g/dL Neutrophils # (1.3-7.7) k/uL Lymphocytes # (1.0-4.8) k/uL Chloride (98-107) mmol/L Carbon Dioxide (22-30) mmol/L BUN (7-17) mg/dL Creatinine (0.52-1.04) mg/dL Glucose (74-99) mg/dL POC Glucose (mg/dL) 130 H 174 H 160 H (75-99) mg/dL Stool Occult Blood (Negative) 11/13/17 11/13/17 11/13/17 Range/Units 05:48 05:48 06:29 RBC 3.27 L (3.80-5.40) m/uL Hgb 10.3 L (11.4-16.0) gm/dL MCV 114.1 H (80.0-100.0) fL MCHC 27.6 L (31.0-37.0) g/dL Neutrophils # 8.6 H (1.3-7.7) k/uL Lymphocytes # 0.2 L (1.0-4.8) k/uL Chloride 94 L (98-107) mmol/L Carbon Dioxide 38 H (22-30) mmol/L BUN 93 H* (7-17) mg/dL Creatinine 3.00 H (0.52-1.04) mg/dL Glucose 153 H (74-99) mg/dL POC Glucose (mg/dL) 143 H (75-99) mg/dL Stool Occult Blood (Negative) 11/13/17 11/13/17 Range/Units 09:31 12:06 RBC (3.80-5.40) m/uL Hgb (11.4-16.0) gm/dL MCV (80.0-100.0) fL MCHC (31.0-37.0) g/dL Neutrophils # (1.3-7.7) k/uL Lymphocytes # (1.0-4.8) k/uL Chloride (98-107) mmol/L Carbon Dioxide (22-30) mmol/L BUN (7-17) mg/dL Creatinine (0.52-1.04) mg/dL Glucose (74-99) mg/dL POC Glucose (mg/dL) 162 H (75-99) mg/dL Stool Occult Blood Positive H (Negative) Assessment and Plan Plan: Assessment and plan #1 systolic congestive heart failure acute on chronic #2 exacerbation of COPD #3 known history of moderate to severe peripheral vascular disease with prior stenting #4 chronic persistent atrial fibrillation, on Eliquis for anticoagulation, patient did have prior ablation. #5 acute on chronic kidney injury #6 nonischemic cardiomyopathy #7 hypertension #8 hyperlipidemia #9 moderate to severe COPD Plan From cardiology's perspective, we concur with nephrology in holding the diuretics and Entresto. Patient's prognosis overall is guarded DNP note has been reviewed, I agree with a documented findings and plan of care. Patient was seen and examined.
[2017-11-13 17:00] LABS: Glucose,Whole Blood 149 mg/dL (75-99)
--- NOTE | 2017-11-13 17:10 | P.PN ---
Progress Note - Text Progress Note Date: 11/13/17 DATE OF SERVICE: 11/13/2017 PRESENTING COMPLAINT: Increasing shortness of breath HISTORY OF PRESENT ILLNESS: 82-year-old female who presented with increasing shortness of breath, unable to finish sentences short of breath at rest positive cough production, afebrile.Also had some redness and swelling concerning for cellulitis to the left lower extremity.Admitted for the same. INTERVAL HISTORY: 11/13/2017: Lying in bed tired appearing, afebrile, continues to be short of breath at rest , coarse cough is able to lie flat in bed. Very weak and debilitated only able to transfer from the bed to the bedside commode. BUN and creatinine continue to rise, nephrology to see the patient. Negative fluid balance of 505 mL Appetite fair, eating not more than 50% and does sit at the edge of the bed for meals. Last BM 11/13/2017. 11/12/2017: Lying in bed, resting quietly, afebrile, shortness of breath at rest but is able to lay flat in the bed,. Weak and debilitated only able to transfer from the bed to the bedside commode with a walker. BUN and creatinine continue to rise. Nephrology consulted. Discussion had regarding CODE STATUS and wishes to BE a no code. Appetite continues to be fair eating about 50% and sits up at the edge of the bed as well as using the bedside commode. 11/11/2017: Lying in bed, afebrile, breathing and shortness of breath about the same, raspiness in the throat has subsided, cough no sputum production. Overall appears to be pretty weak and debilitated. BUN 69 and creatinine 2.00, remains on Lasix by mouth, subconjunctival hemorrhage to the left eye continues to improve. Fluid balance +980 mL. Left lower extremity cellulitis improving Silvadene and Curlex continue. Appetite improving eating just about 50% of her meals does sit up at the edge of the bed and does use a bedside commode but able to do very little else. 11/10/2017: Lying in bed, afebrile, breathing and shortness of breath improving still has a raspy sounding voice and a cough with no sputum production. Solu-Medrol remains IV at 60 mg, Diamox added and Lasix continues to be given by mouth. Renal function worsening today. Subconjunctival hemorrhage to the left eye improving. Fluid balance -460 mL. Appetite continues to be low, eating only about 50% of her meals, only able to tolerate getting up to the bedside commode terms of activity, left lower extremity cellulitis improving Silvadene and Curlex continue. 11/09/2017: Lying in bed, afebrile, increased work of breathing, cough wheezing feels short of breath. Solu-Medrol increased, Diamox added Lasix switched to by mouth. Elevated kidney function today as well. Patient noted to have a subconjunctival hemorrhage to the left eye, likely due to coughing. 11/08/2017: Lying in bed, shortness of breath improving continues to be short of breath with minimal exertion. Mild conversational dyspnea, coarse cough, some sputum production, afebrile. Left lower extremity warm red tender dressed with Silvadene cream and Curlex wrap. Appetite is low, up with assistance. Last BM 11/07/2017. Remains on IV Lasix, negative fluid balance of 1520 mL. 11/07/2017: lying in bed continues to be short of breath at rest and with minimal exertion. Continues to have conversational dyspnea, has a cough no sputum afebrile. Left lower extremity with Silvadene cream and Curlex wrap and ampicillin .appetite low, up with assistance, last BM11/07/2017: REVIEW OF SYSTEMS: Done for constitutional ,cardiovascular, GI, pulmonary with relevant findings as above. CURRENT MEDICATIONS Tylenol, [place], DuoNeb, amiodarone, ampicillin sulbactam, Eliquis, aspirin, Lipitor, Dulcolax, Pulmicort, Lexapro, Pepcid, Feosol, Diflucan Perforomist, NovoLog, Synthroid, Imodium, Ativan, milk of magnesia, melatonin, Solu-Medrol, Lopressor, Silvadene cream, vancomycin. PHYSICAL EXAM VITAL SIGNS: Temperature 97.0, pulse 85, respiratory rate 20, blood pressure 90/61, oxygen saturation 95% on 3 L GENERAL APPEARANCE: Lying flat in bed, sleepy appearing. HENT: Normocephalic, oral cavity normal, external appearance of ears/nose normal. NECK: JVD raised. Mass not palpable. EYES:Pupils equal.has exophthalmos, subconjunctival hemorrhage noted to the left outer canthus, MOUTH: Oral cavity with white patches noted to buccal area and posterior pharynx RESPIRATORY: Respiratory effort increased. Lungs diminished with inspiratory and expiratory wheezing coarse cough no sputum, . CARDIOVASCULAR: First and second sounds normal.mild edema. ABDOMEN: Soft. Liver and spleen not palpable. No tenderness. No mass palpable. PSYCHIATRY: Alert and oriented x3. Mood and affect mildly anxious INTEGUMENT: Left lower extremity reddened, no drainage noted improving, INVESTIGATIONS: LABS: Hemoglobin 10.3, chloride 94, cardiac site 38, BUN 93, creatinine 3.00, Accu-Cheks noted. Stool positive for occult blood Chest x-ray: Changes of mild congestive heart failure Blood cultures no growth after 144 hours ASSESSMENT: -acute on chronic congestive heart failure exacerbation from systolic dysfunction, from non ischemic cardiomyopathy ejection fraction 40-45 percent worsening obstructive pulmonary disease exacerbation in an ex-smoker, slow to respond -Acute kidney injury secondary to acute tubular necrosis due to hypotension and dieuretic use worsening -Chronic kidney disease stage III secondary to nephrosclerosis cardiac renal syndrome with baseline creatinine in the range of 1.3-1.5. -moderate tricuspid regurgitation, nonrheumatic. -Severe secondary pulmonary hypertension secondary to chronic obstructive pulmonary disease. -Persistent atrial fibrillation/flutter chronically on Eliquis. -Subconjunctival hemorrhage left eye likely due to coughing episodes, improving -Restless leg syndrome, chronic. -Chronic fibromyalgia. -Primary osteoarthritis multiple joints, bilateral. -Chronic hypoxic respiratory failure from underlying chronic obstructive pulmonary disease on 3 L of oxygen at home. -Acute hypoxic respiratory failure from chronic obstructive pulmonary disease present on admission. -Hypothyroidism. -Medical debility. -Gait dysfunction uses a walker. -Peripheral arterial disease with prior history of stent. -Acute left lower extremity cellulitis, improving -Oral candidiasis in a patient who is on antibiotics, improving -CODE STATUS DO NOT RESUSCITATE. PLAN: BUN and creatinine continue to rise nephrology discussed with the patient the need for renal replacement therapy in the next 24-72 hours depending on her renal function and volume status. Lasix Diamox and entresto were placed on hold today by nephrology. Patient is hesitant unclear about what hemodialysis is. She will think about it. nebulized bronchodilators, IV Solu-Medrol remains at 40 every 12 as patient's condition slowly improving and antibiotics in the form of vancomycin and Unasyn, Eliquis for anticoagulation.subconjunctival hemorrhage to left eye improving.has oral candidiasis Diflucan continues with routine oral care. not really ready for discharge planning yet. Plan of care discussed at the bedside patient is agreeable, we will follow closely. HOUSE MOTHER statement: Patient was seen and examined by nurse practitioner Cathie Monk and all elements of the case discussed with attending Dr. Ramos
[2017-11-13 21:18] LABS: Glucose,Whole Blood 146 mg/dL (75-99)
--- NOTE | 2017-11-13 22:26 | PN ---
PROGRESS NOTE DATE OF SERVICE: 11/13/17. ATTENDING NOTE: Patient seen and examined by me. I discussed with nurse practitioner Ms. Monk. The patient has got into renal failure from diuresis, lethargic but communicating. EXAMINATION: Afebrile, pulse 97, respiratory rate 20, blood pressure 81/55, pulse ox 98%, tired, lethargic but answering questions. The patient lying flat in bed. White count 9.1, BUN 93, creatinine 3.0. ASSESSMENT: 1. Acute renal failure with a prerenal component primarily from severe diuresis. 2. Acute metabolic encephalopathy from above. 3. Multiple other medical problems. Prognosis is guarded. PLAN: The patient's diuretics Entresto has been held. Nephrology was consulted. They did suggest renal replacement therapy. Overall prognosis is not good. Prognosis is guarded. Overall, patient is clinically has worsened. Also will discontinue patient's vancomycin. MMODL / IJN: [id number] /
[2017-11-13] MEDS: methylPREDNISolone SOD SUCCI 40 MG/ML 1 ML VIAL IV SCH (22:58)
[2017-11-13] MEDS: ATORVASTATIN 80 MG TAB PO SCH (22:59)
[2017-11-13] MEDS: MELATONIN 5 MG TABLET PO SCH (23:00)
[2017-11-14 06:03] LABS: Calcium 8.3 mg/dL (8.4-10.2); Magnesium 2.4 mg/dL (1.6-2.3)
[2017-11-14] MEDS: NON-FORMULARY DRUG (Colloidal Oatmeal [Eucerin Eczema Relief] 1 APPLIC) TOPICAL SCH ×3 (06:10→19:44)
[2017-11-14 06:23] LABS: Vancomycin,Random 28.5 ug/mL
[2017-11-14 06:26] LABS: Glucose,Whole Blood 117 mg/dL (75-99)
[2017-11-14] MEDS: FORMOTEROL FUMARATE 20 MCG/2 ML NEBU INHALATION SCH ×2 (07:18→19:06)
[2017-11-14] MEDS: IPRATROPIUM-ALBUTEROL 3 ML NEB INHALATION SCH ×4 (07:18→19:07)
[2017-11-14] MEDS: BUDESONIDE 0.5 MG/2 ML NEBU INHALATION SCH ×2 (07:18→19:06)
--- NOTE | 2017-11-14 10:31 | P.PN ---
Subjective Progress Note Date: 11/14/17 Principal diagnosis: Acute exacerbation of chronic obstructive disease, acute exacerbation of combined systolic and diastolic congestive heart failure. This is a very pleasant 62-year-old female patient who follows with Dr. Chika Lloyd as her primary care physician. She has a history of chronic atrial fibrillation/flutter, systolic congestive heart failure with estimated ejection fraction of 35% , restless leg syndrome, fibromyalgia, hypertension, hyperlipidemia, osteoarthritis, hypothyroidism, severe tricuspid regurgitation, depression. She also has a significant history of end-stage chronic obstructive pulmonary disease and chronic hypoxic respiratory failure. She has had multiple admissions for both exacerbations of CHF and COPD. She was most recently discharged on 10/01/2017 to [facility]. She had been doing fairly well for approximately one month when she presented to the emergency room yesterday with complaints of increasing shortness of breath, cough and congestion. He was also having complaints of left foot pain and swelling and being treated for cellulitis. Negative DVT. Her chest x-ray reveals some mild congestive heart failure with pleural effusions. ProBNP 10, 700. Troponins negative 2. Creatinine 1.40. There is also noted cardiomegaly. No clear evidence of pneumonia. No leukocytosis. Has been afebrile. Hemodynamically stable. Maintaining O2 saturations in the low 90s on 4 L/m per nasal cannula. The patient is seen again today 11/14/2017 in follow-up on the selective care unit. She is resting quite comfortably in bed. She arouses to verbal stimuli. She currently denies any worsening shortness of breath, cough or congestion. She is maintaining O2 saturations in the 90s on 3 L/m per nasal cannula. She is afebrile. No tachycardia, no tachypnea. Creatinine 3.70. She has been seen by nephrology. [facility] [place] and diuretics are on hold for now. She may need renal replacement therapy. Her overall prognosis is quite poor. Objective - Vital Signs Vital signs: Vital Signs Temp 97 F L 11/14/17 08:00 Pulse 97 11/14/17 08:00 Resp 14 11/14/17 08:00 BP 124/72 11/14/17 08:00 Pulse Ox 97 11/14/17 04:00 Intake & Output 11/13/17 11/14/17 11/14/17 18:59 06:59 18:59 Intake Total 440 240 Output Total 200 200 Balance 240 -200 240 Weight 81 kg 92.5 kg Intake: Intake, IV Titration 100 Amount Ampicillin-Sulbactam 3 gm 100 In Sodium Chloride 0.9% 100 ml @ 100 mls/hr IVPB Q12H [facility] Rx#:[id number] Oral 340 240 Output: Urine 200 200 Other: Voiding Method Bedside Commode Bedside Commode # Voids 1 2 # Bowel Movements 1 1 - Exam GENERAL EXAM: Cushingoid appearing. Alert, comfortable in no apparent distress. HEAD: Normocephalic. EYES: Normal reaction of pupils, equal size. Ptosis. NOSE: Clear with pink turbinates. THROAT: No erythema or exudates. NECK: No masses, no JVD. CHEST: No chest wall deformity. LUNGS: Equal air entry with crackles in the posterior bases. Faint end expiratory wheeze. Diminished. CVS: S1 and S2 normal with no audible murmur, regular rhythm. ABDOMEN: No hepatosplenomegaly, normal bowel sounds, no guarding or rigidity. SPINE: Kyphosis SKIN: Some redness and edema of the left lower extremity. CENTRAL NERVOUS SYSTEM: No focal deficits, tone is normal in all 4 extremities. EXTREMITIES: There is trace peripheral edema. No clubbing, no cyanosis. Peripheral pulses are intact. - Labs CBC & Chem 7: 11/13/17 05:48 11/14/17 05:36 Labs: Abnormal Lab Results - Last 24 Hours (Table) 11/13/17 11/13/17 11/13/17 Range/Units 12:06 16:42 21:17 Chloride (98-107) mmol/L Carbon Dioxide (22-30) mmol/L BUN (7-17) mg/dL Creatinine (0.52-1.04) mg/dL Glucose (74-99) mg/dL POC Glucose (mg/dL) 162 H 149 H 146 H (75-99) mg/dL Calcium (8.4-10.2) mg/dL Magnesium (1.6-2.3) mg/dL 11/14/17 11/14/17 Range/Units 05:36 05:55 Chloride 95 L (98-107) mmol/L Carbon Dioxide 34 H (22-30) mmol/L BUN 111 H* (7-17) mg/dL Creatinine 3.70 H (0.52-1.04) mg/dL Glucose 124 H (74-99) mg/dL POC Glucose (mg/dL) 117 H (75-99) mg/dL Calcium 8.3 L (8.4-10.2) mg/dL Magnesium 2.4 H (1.6-2.3) mg/dL Assessment and Plan Assessment: Impression: #1 Acute exacerbation of combined systolic and diastolic congestive heart failure. Ejection fraction 40-45%. #2 Acute exacerbation of advanced oxygen dependent chronic obstructive pulmonary disease. FEV1 30% of predicted. #3 Acute on chronic hypoxic respiratory failure secondary to above. On oxygen at 2 L in the outpatient setting. #4 Moderate to severe pulmonary hypertension. #5 Chronic atrial fibrillation, anticoagulated with Eliquis. #6 Coronary artery disease, history of. #7 Hypothyroidism. #8 Degenerative arthritis. #9 Fibromyalgia. #10 Hyperlipidemia. #11 Cellulitis of the left lower extremity. #12 Poor overall functional performance based on the above-mentioned multiple comorbidities. #13 Acute on chronic renal failure. Current creatinine 3.70. Plan: The patient was seen and evaluated by Dr. Crowley. We'll continue with her current medications including bronchodilators, IV Solu-Medrol and antibiotics in the form of Unasyn. Her vancomycin was discontinued. Diuretics and Entresto on hold regarding the renal failure. Eliquis for anticoagulation. Her overall prognosis remains quite poor. She is considering renal replacement therapy. She remains a DO NOT RESUSCITATE/DO NOT INTUBATE CODE STATUS. We'll continue to follow and make further recommendations based on her clinical stable. I, the cosigning physician, have performed a history and physical examination on the patient. Lung sounds crackles in the bilateral posterior bases. Faint end expiratory wheeze. Diminished throughout.. Maintaining good O2 saturations in the 90s on 3 L/m per nasal cannula. I have discussed the assessment and plan of care with my nurse practitioner, Jennifer Montes. I attest to the above consultation as dictated by her.
--- NOTE | 2017-11-14 10:59 | P.PN ---
Subjective Patient is seen in follow-up for acute kidney injury. Patient has chronic kidney disease stage III with baseline creatinine in the range of 1.3-1.5 secondary to nephrosclerosis and cardiorenal syndrome. Renal function continues to worsen with creatinine up to 3.7 today. There is no evidence of urinary retention. Urine output documented as 425 mL in the last 24 hours. Diuretics are currently held. She remains dyspneic requiring oxygen support. She has systolic CHF with ejection fraction of 40-45% with moderate tricuspid regurgitation. Vital signs are stable. General: The patient appeared well nourished and normally developed. HEENT: Head exam is unremarkable. Neck is without jugular venous distension. LUNGS: Lungs are clear to auscultation and percussion. Breath sounds decreased. HEART: Rate and Rhythm are regular. First and second heart sounds normal. No murmurs, rubs or gallops. ABDOMEN: Abdominal exam reveals normal bowel sounds. Non-tender and non- distended. No evidence of peritonitis. EXTREMITITES: No edema in the right lower extremity. 1+ edema in the left lower extremity. Objective - Vital Signs Vital signs: Vital Signs Temp 97 F L 11/14/17 08:00 Pulse 97 11/14/17 08:00 Resp 14 11/14/17 08:00 BP 124/72 11/14/17 08:00 Pulse Ox 97 11/14/17 04:00 Intake & Output 11/13/17 11/14/17 11/14/17 18:59 06:59 18:59 Intake Total 440 240 Output Total 200 200 Balance 240 -200 240 Weight 81 kg 92.5 kg Intake: Intake, IV Titration 100 Amount Ampicillin-Sulbactam 3 gm 100 In Sodium Chloride 0.9% 100 ml @ 100 mls/hr IVPB Q12H [facility] Rx#:[id number] Oral 340 240 Output: Urine 200 200 Other: Voiding Method Bedside Commode Bedside Commode # Voids 1 2 # Bowel Movements 1 1 - Labs CBC & Chem 7: 11/13/17 05:48 11/14/17 05:36 Labs: Abnormal Lab Results - Last 24 Hours (Table) 11/13/17 11/13/17 11/13/17 Range/Units 12:06 16:42 21:17 Chloride (98-107) mmol/L Carbon Dioxide (22-30) mmol/L BUN (7-17) mg/dL Creatinine (0.52-1.04) mg/dL Glucose (74-99) mg/dL POC Glucose (mg/dL) 162 H 149 H 146 H (75-99) mg/dL Calcium (8.4-10.2) mg/dL Magnesium (1.6-2.3) mg/dL 11/14/17 11/14/17 Range/Units 05:36 05:55 Chloride 95 L (98-107) mmol/L Carbon Dioxide 34 H (22-30) mmol/L BUN 111 H* (7-17) mg/dL Creatinine 3.70 H (0.52-1.04) mg/dL Glucose 124 H (74-99) mg/dL POC Glucose (mg/dL) 117 H (75-99) mg/dL Calcium 8.3 L (8.4-10.2) mg/dL Magnesium 2.4 H (1.6-2.3) mg/dL Assessment and Plan Plan: Assessment: #1. Acute kidney injury secondary to ATN secondary to hypotension and diuresis. Creatinine up to 3.7 today. Vancomycin level also noted to be on the higher side at 34.2 as of November 12. BUN elevated due to acute kidney injury as well as steroids. Stool for occult blood noted to be positive but hemoglobin relatively stable at 10.3. No evidence of urinary retention. #2. Chronic kidney disease stage III secondary to nephrosclerosis and cardiac renal syndrome with baseline creatinine in the range of 1.3-1.5. #3. Systolic CHF with ejection fraction of 40-45% with moderate tricuspid regurgitation. #4. Volume overload. Improving since admission. #5. Acute COPD maintained on IV steroids. #5. Lower extremity cellulitis maintained on antibiotics. Plan: Start normal saline at 50 mL an hour. Continue to hold diuretics for now. Hold entresto. Discontinued Fleet enemas. Repeat electrolytes in the morning. Await urinalysis. Accurate I's and O's. Discussed with the patient regarding potential need for renal replacement therapy in the next few days depending on her renal function as well as volume status. Patient still not sure if she would want to proceed.
[2017-11-14] MEDS: SODIUM CHLORIDE 0.9% 1,000 ML IV SCH (11:00)
[2017-11-14] MEDS: METOPROLOL TARTRATE 25 MG TAB PO SCH ×2 (11:18→17:45)
[2017-11-14] MEDS: ASPIRIN 81 MG PO SCH (11:19)
[2017-11-14] MEDS: AMIODARONE 200 MG TAB PO SCH (11:19)
[2017-11-14] MEDS: APIXABAN 2.5 MG TABLET PO SCH ×2 (11:19→19:51)
[2017-11-14] MEDS: FAMOTIDINE 20 MG TAB PO SCH (11:20)
[2017-11-14] MEDS: FERROUS SULFATE 325 MG TAB PO SCH ×2 (11:20→19:51)
[2017-11-14] MEDS: ESCITALOPRAM 20 MG TAB PO SCH (11:20)
[2017-11-14] MEDS: methylPREDNISolone SOD SUCCI 40 MG/ML 1 ML VIAL IV SCH ×2 (11:21→19:51)
[2017-11-14] MEDS: LORazepam 0.5 MG TAB PO PRN (11:21)
[2017-11-14] MEDS: FLUCONAZOLE 100 MG TAB PO SCH (11:52)
[2017-11-14 12:04] LABS: Glucose,Whole Blood 108 mg/dL (75-99)
--- NOTE | 2017-11-14 14:49 | P.PN ---
Subjective Progress Note Date: 11/14/17 Principal diagnosis: Shortness of breath This is a pleasant 62-year-old female with known history of end-stage COPD, hypertension, hyperlipidemia, peripheral vascular disease with prior peripheral stenting, nonischemic cardiomyopathy, chronic persistent atrial fibrillation, prior cardiac ablation hypertension, hyperlipidemia, who is currently at [facility] for rehab, she presented to the hospital with a 2-3 day duration of worsening shortness of breath. Overall the patient states she's been doing fairly well. Patient does have a productive cough, positive PND and orthopnea. Positive peripheral edema. EKG on admission showed atrial fibrillation with an incomplete right bundle branch block pattern. Venous duplex study was negative for DVT in the left leg. Chest x-ray shows new mild congestive heart failure with pleural effusions as compared with prior exam. White blood cell count is normal, hemoglobin 11.2, platelet count 206. Sodium 140, potassium 4.4, chloride 90, CO2 41, BUN 28, creatinine 1.4. BNP level 10, 700., troponin 0.015, 0.012. TSH level 10.6. She was initiated on IV Lasix in the emergency room, she was also initiated on IV steroids and antibiotics. At the time of my examination this morning, she is sitting up in bed, continues to feel quite short of breath, significant wheezing. She also has evidence of significant redness and cellulitis in her left lower extremity. 11/07/2017 Patient seen and examined, overall states she is still short of breath, however she lies flat in bed and appears to be somewhat comfortable. Continues to have significant bilateral peripheral edema. Echo cardiac exam with Doppler study was repeated here which reveals an ejection fraction of 40-45%. Patient is diuresing, her weight and indicates that it is up 2 kg today. BUN 31, creatinine 1.3, hemoglobin 11.0. We will continue Lasix 40 mg twice a day IV. 11/12/2017 Patient seen and examined this morning, appears to be much more short of breath , significant edema overall. Persistent wheezy cough. BUN 80, creatinine 2.4, potassium 4.5. Blood pressure 90/50, heart rate in the 80s. 96% on 3 L of oxygen. Patient had made a decision today to be a no code. We would recommend a nephrology consultation. 11/13/2017 Patient seen and examined this morning, very short of breath today. Significantly wheezy. Diuretics have been placed on hold as well as her Entresto by nephrology. BUN 93, creatinine 3.0. 11/14 2017 Patient seen and examined this morning, creatinine up to 3.7 today. Much more sleepy today. Peripheral edema significantly improved. Continues to feel quite short of breath. Diuretics continue to be on hold, patient is receiving IV fluids at 50 mL per hour. Objective - Vital Signs Vital signs: Vital Signs Temp 97.3 F L 11/14/17 11:00 Pulse 90 11/14/17 11:15 Resp 15 11/14/17 11:00 BP 128/64 11/14/17 11:00 Pulse Ox 99 11/14/17 11:00 Intake & Output 11/13/17 11/14/17 11/14/17 18:59 06:59 18:59 Intake Total 440 240 Output Total 200 200 100 Balance 240 -200 140 Weight 81 kg 92.5 kg Intake: Intake, IV Titration 100 Amount Ampicillin-Sulbactam 3 gm 100 In Sodium Chloride 0.9% 100 ml @ 100 mls/hr IVPB Q12H [facility] Rx#:[id number] Oral 340 240 Output: Urine 200 200 100 Other: Voiding Method Bedside Commode Bedside Commode Bedside Commode # Voids 1 2 0 # Bowel Movements 1 1 0 - Exam PHYSICAL EXAMINATION: 62-year-old female, in mild distress today. HEENT: Head is atraumatic, normocephalic. Pupils equal, round. Neck is supple. There is elevated jugular venous pressure. HEART EXAMINATION: Heart S1 and S2 irregularly irregular CHEST EXAMINATION: Lungs reveal decreased air exchange throughout, scattered coarse wheezing throughout. ABDOMEN: Soft, nontender. Bowel sounds are heard. No organomegaly noted. EXTREMITIES: 1+ peripheral pulses with 1+ evidence of peripheral edema more in the left lower extremity than the right, evidence of cellulitis in the left lower extremity NEUROLOGIC patient is awake, alert and oriented -3. - Labs CBC & Chem 7: 11/13/17 05:48 11/14/17 05:36 Labs: Abnormal Lab Results - Last 24 Hours (Table) 11/13/17 11/13/17 11/14/17 Range/Units 16:42 21:17 05:36 Chloride 95 L (98-107) mmol/L Carbon Dioxide 34 H (22-30) mmol/L BUN 111 H* (7-17) mg/dL Creatinine 3.70 H (0.52-1.04) mg/dL Glucose 124 H (74-99) mg/dL POC Glucose (mg/dL) 149 H 146 H (75-99) mg/dL Calcium 8.3 L (8.4-10.2) mg/dL Magnesium 2.4 H (1.6-2.3) mg/dL 11/14/17 11/14/17 Range/Units 05:55 11:59 Chloride (98-107) mmol/L Carbon Dioxide (22-30) mmol/L BUN (7-17) mg/dL Creatinine (0.52-1.04) mg/dL Glucose (74-99) mg/dL POC Glucose (mg/dL) 117 H 108 H (75-99) mg/dL Calcium (8.4-10.2) mg/dL Magnesium (1.6-2.3) mg/dL Assessment and Plan Plan: Assessment and plan #1 systolic congestive heart failure acute on chronic #2 exacerbation of COPD #3 known history of moderate to severe peripheral vascular disease with prior stenting #4 chronic persistent atrial fibrillation, on Eliquis for anticoagulation, patient did have prior ablation. #5 acute on chronic kidney injury #6 nonischemic cardiomyopathy #7 hypertension #8 hyperlipidemia #9 moderate to severe COPD Plan From cardiology's perspective, we concur with nephrology in continuing to hold the diuretics and Entresto. Patient's prognosis overall is guarded DNP note has been reviewed, I agree with a documented findings and plan of care. Patient was seen and examined.
[2017-11-14] MEDS: INSULIN ASPART 100 UNIT/ML 1 ML 10 ML VIAL SQ SCH ×3 (15:16→21:18)
[2017-11-14] MEDS: LEVOTHYROXINE 137 MCG TAB PO SCH (15:16)
[2017-11-14] MEDS: AMPICILLIN-SULBACTAM 3 GM in SODIUM CHLORIDE 0.9% 100 ML IVPB SCH ×2 (15:23→23:47)
--- NOTE | 2017-11-14 15:27 | P.PN ---
Progress Note - Text Progress Note Date: 11/14/17 DATE OF SERVICE: 11/14/2017 PRESENTING COMPLAINT: Increasing shortness of breath HISTORY OF PRESENT ILLNESS: 82-year-old female who presented with increasing shortness of breath, unable to finish sentences short of breath at rest positive cough production, afebrile.Also had some redness and swelling concerning for cellulitis to the left lower extremity.Admitted for the same. INTERVAL HISTORY: 11/14/2017: Lying in bed, tired appearing. Very lethargic, afebrile, shortness of breath improving, no cough noted, able to lie flat in bed. Very weak and debilitated can transfer from the bed to the bedside commode. BUN and Creatinine continue to rise, fluid balance for the last 24 hours +20 mL. Appetite fair, eating less than 50% of her meals. Last BM 11/12/2017. 11/13/2017: Lying in bed tired appearing, afebrile, continues to be short of breath at rest , coarse cough is able to lie flat in bed. Very weak and debilitated only able to transfer from the bed to the bedside commode. BUN and creatinine continue to rise, nephrology to see the patient. Negative fluid balance of 505 mL Appetite fair, eating not more than 50% and does sit at the edge of the bed for meals. Last BM 11/12/2017. 11/12/2017: Lying in bed, resting quietly, afebrile, shortness of breath at rest but is able to lay flat in the bed,. Weak and debilitated only able to transfer from the bed to the bedside commode with a walker. BUN and creatinine continue to rise. Nephrology consulted. Discussion had regarding CODE STATUS and wishes to BE a no code. Appetite continues to be fair eating about 50% and sits up at the edge of the bed as well as using the bedside commode. 11/11/2017: Lying in bed, afebrile, breathing and shortness of breath about the same, raspiness in the throat has subsided, cough no sputum production. Overall appears to be pretty weak and debilitated. BUN 69 and creatinine 2.00, remains on Lasix by mouth, subconjunctival hemorrhage to the left eye continues to improve. Fluid balance +980 mL. Left lower extremity cellulitis improving Silvadene and Curlex continue. Appetite improving eating just about 50% of her meals does sit up at the edge of the bed and does use a bedside commode but able to do very little else. 11/10/2017: Lying in bed, afebrile, breathing and shortness of breath improving still has a raspy sounding voice and a cough with no sputum production. Solu-Medrol remains IV at 60 mg, Diamox added and Lasix continues to be given by mouth. Renal function worsening today. Subconjunctival hemorrhage to the left eye improving. Fluid balance -460 mL. Appetite continues to be low, eating only about 50% of her meals, only able to tolerate getting up to the bedside commode terms of activity, left lower extremity cellulitis improving Silvadene and Curlex continue. 11/09/2017: Lying in bed, afebrile, increased work of breathing, cough wheezing feels short of breath. Solu-Medrol increased, Diamox added Lasix switched to by mouth. Elevated kidney function today as well. Patient noted to have a subconjunctival hemorrhage to the left eye, likely due to coughing. 11/08/2017: Lying in bed, shortness of breath improving continues to be short of breath with minimal exertion. Mild conversational dyspnea, coarse cough, some sputum production, afebrile. Left lower extremity warm red tender dressed with Silvadene cream and Curlex wrap. Appetite is low, up with assistance. Last BM 11/07/2017. Remains on IV Lasix, negative fluid balance of 1520 mL. 11/07/2017: lying in bed continues to be short of breath at rest and with minimal exertion. Continues to have conversational dyspnea, has a cough no sputum afebrile. Left lower extremity with Silvadene cream and Curlex wrap and ampicillin .appetite low, up with assistance, last BM11/07/2017: REVIEW OF SYSTEMS: Done for constitutional ,cardiovascular, GI, pulmonary with relevant findings as above. CURRENT MEDICATIONS Tylenol, [place], DuoNeb, amiodarone, ampicillin sulbactam, Eliquis, aspirin, Lipitor, Dulcolax, Pulmicort, Lexapro, Pepcid, Feosol, Diflucan Perforomist, NovoLog, Synthroid, Imodium, Ativan, milk of magnesia, melatonin, Solu-Medrol, Lopressor, Silvadene cream, PHYSICAL EXAM VITAL SIGNS: Temperature 97.3, pulse 79, respiratory rate 15, blood pressure 128/64, oxygen saturation 99% on 3 L. GENERAL APPEARANCE: Lying flat in bed, sleepy appearing. HENT: Normocephalic, oral cavity normal, external appearance of ears/nose normal NECK:JVD raised. Mass not palpable. EYES:Pupils equal.has exophthalmos, subconjunctival hemorrhage almost resolved to the left outer canthus, MOUTH: Oral cavity with white patches noted to buccal area and posterior pharynx RESPIRATORY: Respiratory effort increased. Lungs diminished with inspiratory and expiratory wheezing coarse cough no sputum, . CARDIOVASCULAR: First and second sounds normal.mild edema. ABDOMEN: Soft. Liver and spleen not palpable. No tenderness. No mass palpable. PSYCHIATRY: Alert and oriented x3. Mood and affect flat and somewhat lethargic INTEGUMENT: Left lower extremity reddened, no drainage noted INVESTIGATIONS: LABS: Chloride 95, carbon dioxide 34, BUN 111, creatinine 3.70, Accu-Cheks noted. Chest x-ray: Changes of mild congestive heart failure Blood cultures no growth after 144 hours ASSESSMENT: -acute on chronic congestive heart failure exacerbation from systolic dysfunction, from non ischemic cardiomyopathy ejection fraction 40-45 percent worsening obstructive pulmonary disease exacerbation in an ex-smoker, slow to respond -Acute metabolic encephalopathy secondary to worsening renal function -Acute renal failure with a prerenal component due to hypotension and severe diuresis dieuretic worsening -Chronic kidney disease stage III secondary to nephrosclerosis cardiac renal syndrome with baseline creatinine in the range of 1.3-1.5. -moderate tricuspid regurgitation, nonrheumatic. -Severe secondary pulmonary hypertension secondary to chronic obstructive pulmonary disease. -Persistent atrial fibrillation/flutter chronically on Eliquis. -Subconjunctival hemorrhage left eye likely due to coughing episodes, improving -Restless leg syndrome, chronic. -Chronic fibromyalgia. -Primary osteoarthritis multiple joints, bilateral. -Chronic hypoxic respiratory failure from underlying chronic obstructive pulmonary disease on 3 L of oxygen at home. -Acute hypoxic respiratory failure from chronic obstructive pulmonary disease present on admission. -Hypothyroidism. -Medical debility. -Gait dysfunction uses a walker. -Peripheral arterial disease with prior history of stent. -Acute left lower extremity cellulitis, improving -Oral candidiasis in a patient who is on antibiotics, improving -CODE STATUS DO NOT RESUSCITATE. PLAN: BUN and creatinine continue to rise nephrology discussed with the patient the need for renal replacement therapy in the next 24-72 hours depending on her renal function and volume status. We'll gently hydrate the patient with normal saline at 50 mL an hour, continue to hold entresto, and diuretics. nebulized bronchodilators, IV Solu-Medrol remains at 40 every 12 as patient's condition slowly improving and antibiotics in the form of vancomycin and Unasyn, Eliquis for anticoagulation.subconjunctival hemorrhage to left eye improving.has oral candidiasis Diflucan continues with routine oral care. not really ready for discharge planning yet. Plan of care discussed at the bedside patient is agreeable, we will follow closely. COMPUTER INFORMATION SYSTEMS INSTRUCTOR statement: Patient was seen and examined by nurse practitioner Cathie Monk and all elements of the case discussed with attending Dr. Ramos
[2017-11-14 17:12] LABS: Glucose,Whole Blood 137 mg/dL (75-99)
[2017-11-14] MEDS: HYDROcodone/APAP 5-325MG 1 EACH TAB PO PRN (17:45)
[2017-11-14 18:42] LABS: Amorphous Sediment,Urine Few /hpf; Appearance,Urine Cloudy (Clear); Bilirubin,Urine Negative (Negative); Blood,Urine Trace (Negative); Color,Urine Yellow; Glucose,Urine (UA) Negative (Negative); Hyaline Casts,Urine 28 /lpf (0-2); Hyphae Yeast, Urine Occasional /hpf; Ketones,Urine 1+ (Negative); Leukocyte Esterase,Urine Large (Negative); Mucus,Urine Rare /hpf; Nitrite,Urine Negative (Negative); Protein,Urine 1+ (Negative); RBC,Urine 16 /hpf (0-5); Specific Gravity,Urine 1.016 (1.001-1.035); Squamous Epithelial Cell,Urine 30 /hpf (0-4); Urobilinogen,Urine <2.0 mg/dL (<2.0); WBC,Urine 158 /hpf (0-5)
[2017-11-14] MEDS: ATORVASTATIN 80 MG TAB PO SCH (19:51)
[2017-11-14] MEDS: MELATONIN 5 MG TABLET PO SCH (19:51)
[2017-11-14 21:12] LABS: Glucose,Whole Blood 147 mg/dL (75-99)
--- NOTE | 2017-11-15 04:55 | PN ---
PROGRESS NOTE DATE OF SERVICE: 11/14/2017 ATTENDING NOTE: Patient seen and examined by me. I discussed with nurse practitioner, Jovan Aleshia. The patient is becoming more lethargic, though able to communicate sometimes. Renal function has been getting worse. I saw the patient earlier today. ON EXAMINATION: Temperature 97, pulse 89, respirations 18, blood pressure 126/72, lethargic but arousable, able to answer some questions. Decreased edema. Bruising present. INVESTIGATIONS: Potassium 5, BUN 111, creatinine 3.70. ASSESSMENT: 1. Acute renal failure probably acute tubular necrosis with a prerenal component, rapidly worsening with acute metabolic encephalopathy, worsening. 2. Multiple other medical problems. I started the patient on IV fluids 150 mL an hour and discussed this with Dr. Lowry from Nephrology. Dialysis may be the only other option, but given her overall poor condition, I am not sure that is a fair choice for her. ADVANCED CARE PLANNING I had a meeting this evening with the patient's daughter, Amarilis, and her friend, Aysha. I went over the patient's overall condition and they do understand patient's overall prognosis is not good and do agree that if patient deteriorates then no heroic measures should be done. The patient is already a NO CODE. They understand were are going to gently hydrate her to see what can be done. The patient's different medical conditions were updated and they understand that patient can rapidly deteriorate. Advance care planning took about 20 to 25 minutes. MONICA / FATMATA: [id number] /
[2017-11-15 06:16] LABS: Glucose,Whole Blood 154 mg/dL (75-99)
[2017-11-15 06:21] LABS: Basophils % (A) 0 %; Eosinophils % (A) 0 %; HGB 9.7 gm/dL (11.4-16.0); Hypochromasia Marked; Lymphocytes # (A) 0.2 k/uL (1.0-4.8); Lymphocytes % (A) 2 %; MCH 30.7 pg (25.0-35.0); MCHC 27.8 g/dL (31.0-37.0); MCV 110.6 fL (80.0-100.0); Macrocytosis Marked; Mean Platelet Volume 8.7; Monocytes # (A) 0.2 k/uL (0-1.0); Monocytes % (A) 3 %; Neutrophils # (A) 6.3 k/uL (1.3-7.7); Neutrophils % (A) 94 %; Platelet Count 160 k/uL (150-450); RBC 3.17 m/uL (3.80-5.40); RDW 15.1 % (11.5-15.5); WBC 6.7 k/uL (3.8-10.6)
[2017-11-15] MEDS: INSULIN ASPART 100 UNIT/ML 1 ML 10 ML VIAL SQ SCH ×4 (06:27→20:54)
[2017-11-15] MEDS: SODIUM CHLORIDE 0.9% 1,000 ML IV SCH ×2 (06:27→12:31)
[2017-11-15] MEDS: LEVOTHYROXINE 137 MCG TAB PO SCH (06:27)
[2017-11-15 06:35] LABS: Calcium 8.4 mg/dL (8.4-10.2); Potassium 5.3 mmol/L (3.5-5.1)
[2017-11-15] MEDS: FORMOTEROL FUMARATE 20 MCG/2 ML NEBU INHALATION SCH ×2 (07:48→19:34)
[2017-11-15] MEDS: BUDESONIDE 0.5 MG/2 ML NEBU INHALATION SCH ×2 (07:48→19:34)
[2017-11-15] MEDS: IPRATROPIUM-ALBUTEROL 3 ML NEB INHALATION SCH ×4 (07:48→19:34)
[2017-11-15] MEDS ORDERED: FUROSEMIDE 10 MG/ML 10 ML VIAL IV STA (08:59)
--- NOTE | 2017-11-15 09:03 | P.PN ---
Subjective Patient is seen in follow-up for acute kidney injury. Patient has chronic kidney disease stage III with baseline creatinine in the range of 1.3-1.5 secondary to nephrosclerosis and cardiorenal syndrome. Renal function continues to worsen with creatinine up to 4.09 today. There is no evidence of urinary retention. Urine output documented as 550 mL in the last 24 hours. Diuretics are currently held. She remains dyspneic requiring oxygen support. She has systolic CHF with ejection fraction of 40-45% with moderate tricuspid regurgitation. Vital signs are stable. General: The patient appeared well nourished and normally developed. HEENT: Head exam is unremarkable. Neck is without jugular venous distension. LUNGS: Lungs are clear to auscultation and percussion. Breath sounds decreased. HEART: Rate and Rhythm are regular. First and second heart sounds normal. No murmurs, rubs or gallops. ABDOMEN: Abdominal exam reveals normal bowel sounds. Non-tender and non- distended. No evidence of peritonitis. EXTREMITITES: No edema in the right lower extremity. 1+ edema in the left lower extremity. Objective - Vital Signs Vital signs: Vital Signs Temp 97.8 F 11/15/17 04:00 Pulse 100 11/15/17 08:16 Resp 17 11/15/17 04:00 BP 98/50 11/15/17 04:00 Pulse Ox 94 L 11/15/17 07:50 Intake & Output 11/14/17 11/15/17 11/15/17 18:59 06:59 18:59 Intake Total 330 600 Output Total 300 250 Balance 30 350 Weight 90.2 kg Intake: IV 600 Ampicillin-Sulbactam 3 gm 100 In Sodium Chloride 0.9% 100 ml @ 100 mls/hr IVPB Q12H [facility] Rx#:[id number] Sodium Chloride 0.9% 1, 500 000 ml @ 50 mls/hr IV . Q20H [facility] Rx#:[id number] Oral 330 Output: Urine 300 250 Other: Voiding Method Bedside Commode Bedside Commode # Voids 0 1 # Bowel Movements 1 1 - Labs CBC & Chem 7: 11/15/17 05:49 11/15/17 05:49 Labs: Abnormal Lab Results - Last 24 Hours (Table) 11/14/17 11/14/17 11/14/17 Range/Units 11:59 17:03 18:20 RBC (3.80-5.40) m/uL Hgb (11.4-16.0) gm/dL MCV (80.0-100.0) fL MCHC (31.0-37.0) g/dL Lymphocytes # (1.0-4.8) k/uL Potassium (3.5-5.1) mmol/L BUN (7-17) mg/dL Creatinine (0.52-1.04) mg/dL Glucose (74-99) mg/dL POC Glucose (mg/dL) 108 H 137 H (75-99) mg/dL Urine Appearance Cloudy H (Clear) Urine Protein 1+ H (Negative) Urine Ketones 1+ H (Negative) Urine Blood Trace H (Negative) Ur Leukocyte Esterase Large H (Negative) Urine RBC 16 H (0-5) /hpf Urine WBC 158 H (0-5) /hpf Urine WBC Clumps Moderate H (None) /hpf Ur Squamous Epith Cells 30 H (0-4) /hpf Amorphous Sediment Few H (None) /hpf Hyaline Casts 28 H (0-2) /lpf Urine Mucus Rare H (None) /hpf 11/14/17 11/15/17 11/15/17 Range/Units 21:11 05:49 05:49 RBC 3.17 L (3.80-5.40) m/uL Hgb 9.7 L (11.4-16.0) gm/dL MCV 110.6 H (80.0-100.0) fL MCHC 27.8 L (31.0-37.0) g/dL Lymphocytes # 0.2 L (1.0-4.8) k/uL Potassium 5.3 H (3.5-5.1) mmol/L BUN 124 H* (7-17) mg/dL Creatinine 4.09 H (0.52-1.04) mg/dL Glucose 143 H (74-99) mg/dL POC Glucose (mg/dL) 147 H (75-99) mg/dL Urine Appearance (Clear) Urine Protein (Negative) Urine Ketones (Negative) Urine Blood (Negative) Ur Leukocyte Esterase (Negative) Urine RBC (0-5) /hpf Urine WBC (0-5) /hpf Urine WBC Clumps (None) /hpf Ur Squamous Epith Cells (0-4) /hpf Amorphous Sediment (None) /hpf Hyaline Casts (0-2) /lpf Urine Mucus (None) /hpf 11/15/17 Range/Units 06:14 RBC (3.80-5.40) m/uL Hgb (11.4-16.0) gm/dL MCV (80.0-100.0) fL MCHC (31.0-37.0) g/dL Lymphocytes # (1.0-4.8) k/uL Potassium (3.5-5.1) mmol/L BUN (7-17) mg/dL Creatinine (0.52-1.04) mg/dL Glucose (74-99) mg/dL POC Glucose (mg/dL) 154 H (75-99) mg/dL Urine Appearance (Clear) Urine Protein (Negative) Urine Ketones (Negative) Urine Blood (Negative) Ur Leukocyte Esterase (Negative) Urine RBC (0-5) /hpf Urine WBC (0-5) /hpf Urine WBC Clumps (None) /hpf Ur Squamous Epith Cells (0-4) /hpf Amorphous Sediment (None) /hpf Hyaline Casts (0-2) /lpf Urine Mucus (None) /hpf Assessment and Plan Plan: Assessment: #1. Acute kidney injury secondary to ATN secondary to hypotension and diuresis. Creatinine up to 4.09 today. Vancomycin level also noted to be on the higher side at 34.2 as of November 12. BUN elevated due to acute kidney injury as well as steroids. Stool for occult blood noted to be positive but hemoglobin relatively stable. No evidence of urinary retention. #2. Chronic kidney disease stage III secondary to nephrosclerosis and cardiac renal syndrome with baseline creatinine in the range of 1.3-1.5. #3. Systolic CHF with ejection fraction of 40-45% with moderate tricuspid regurgitation. #4. Volume overload. Improving since admission. #5. Acute COPD maintained on IV steroids. #5. Lower extremity cellulitis maintained on antibiotics. Plan: Maintain normal saline at 50 mL an hour. Challenge with 60 mg of IV Lasix once today. Check urine eosinophils. Hold entresto. Discontinued Fleet enemas. Repeat electrolytes in the morning. Accurate I's and O's. Discussed with the patient regarding worsening renal failure and need to start renal replacement therapy. It appears a family meeting was held yesterday and now invasive or heroic measures are to be done. Patient is not sure about renal replacement therapy. Will discuss with the family.
[2017-11-15] MEDS: METOPROLOL TARTRATE 25 MG TAB PO SCH ×2 (09:09→17:43)
[2017-11-15] MEDS: NON-FORMULARY DRUG (Colloidal Oatmeal [Eucerin Eczema Relief] 1 APPLIC) TOPICAL SCH ×2 (09:12→20:49)
[2017-11-15] MEDS: FLUCONAZOLE 100 MG TAB PO SCH (09:14)
[2017-11-15] MEDS: APIXABAN 2.5 MG TABLET PO SCH ×2 (09:14→20:54)
[2017-11-15] MEDS: FERROUS SULFATE 325 MG TAB PO SCH ×2 (09:14→20:53)
[2017-11-15] MEDS: ASPIRIN 81 MG PO SCH (09:15)
[2017-11-15] MEDS: methylPREDNISolone SOD SUCCI 40 MG/ML 1 ML VIAL IV SCH (09:15)
[2017-11-15] MEDS: AMIODARONE 200 MG TAB PO SCH (09:15)
[2017-11-15] MEDS: ESCITALOPRAM 20 MG TAB PO SCH (09:15)
[2017-11-15] MEDS: FAMOTIDINE 20 MG TAB PO SCH (09:15)
[2017-11-15] MEDS: LORazepam 0.5 MG TAB PO PRN ×2 (09:21→20:54)
--- NOTE | 2017-11-15 09:44 | P.PN ---
Subjective Progress Note Date: 11/15/17 Principal diagnosis: Acute exacerbation of chronic obstructive disease, acute exacerbation of combined systolic and diastolic congestive heart failure. This is a very pleasant 62-year-old female patient who follows with Dr. Chika Lloyd as her primary care physician. She has a history of chronic atrial fibrillation/flutter, systolic congestive heart failure with estimated ejection fraction of 35% , restless leg syndrome, fibromyalgia, hypertension, hyperlipidemia, osteoarthritis, hypothyroidism, severe tricuspid regurgitation, depression. She also has a significant history of end-stage chronic obstructive pulmonary disease and chronic hypoxic respiratory failure. She has had multiple admissions for both exacerbations of CHF and COPD. She was most recently discharged on 10/01/2017 to [facility]. She had been doing fairly well for approximately one month when she presented to the emergency room yesterday with complaints of increasing shortness of breath, cough and congestion. He was also having complaints of left foot pain and swelling and being treated for cellulitis. Negative DVT. Her chest x-ray reveals some mild congestive heart failure with pleural effusions. ProBNP 10, 700. Troponins negative 2. Creatinine 1.40. There is also noted cardiomegaly. No clear evidence of pneumonia. No leukocytosis. Has been afebrile. Hemodynamically stable. Maintaining O2 saturations in the low 90s on 4 L/m per nasal cannula. The patient is seen again today 11/14/2017 in follow-up on the selective care unit. She is resting quite comfortably in bed. She arouses to verbal stimuli. She currently denies any worsening shortness of breath, cough or congestion. She is maintaining O2 saturations in the 90s on 3 L/m per nasal cannula. She is afebrile. No tachycardia, no tachypnea. Creatinine 3.70. She has been seen by nephrology. Entresto and diuretics are on hold for now. She may need renal replacement therapy. Her overall prognosis is quite poor. The patient is seen again today 11/15/2017 in follow-up on the selective care unit. She is awake and alert in no acute distress. She continues with a loose nonproductive cough. No chills or night sweats. She is maintaining O2 saturations in the mid 90s on 3 L/m per nasal cannula. She is afebrile. She is making some urine. Her creatinine is up to 4.09 with a BUN of 124. Nephrology is on the case and planning for dose of Lasix today. Family discussions upset no invasive procedures. She is a DO NOT RESUSCITATE/DO NOT INTUBATE CODE STATUS. She is however still debating about renal replacement therapy. Objective - Vital Signs Vital signs: Vital Signs Temp 97.8 F 11/15/17 04:00 Pulse 100 11/15/17 08:16 Resp 17 11/15/17 04:00 BP 98/50 11/15/17 04:00 Pulse Ox 94 L 11/15/17 07:50 Intake & Output 11/14/17 11/15/17 11/15/17 18:59 06:59 18:59 Intake Total 330 600 Output Total 300 250 Balance 30 350 Weight 90.2 kg Intake: IV 600 Ampicillin-Sulbactam 3 gm 100 In Sodium Chloride 0.9% 100 ml @ 100 mls/hr IVPB Q12H [facility] Rx#:[id number] Sodium Chloride 0.9% 1, 500 000 ml @ 50 mls/hr IV . Q20H [facility] Rx#:[id number] Oral 330 Output: Urine 300 250 Other: Voiding Method Bedside Commode Bedside Commode # Voids 0 1 # Bowel Movements 1 1 - Exam GENERAL EXAM: Cushingoid appearing. Alert, comfortable in no apparent distress. HEAD: Normocephalic. EYES: Normal reaction of pupils, equal size. Ptosis. NOSE: Clear with pink turbinates. THROAT: No erythema or exudates. NECK: No masses, no JVD. CHEST: No chest wall deformity. LUNGS: Equal air entry with crackles in the posterior bases. Faint end expiratory wheeze. Diminished. CVS: S1 and S2 normal with no audible murmur, regular rhythm. ABDOMEN: No hepatosplenomegaly, normal bowel sounds, no guarding or rigidity. SPINE: Kyphosis SKIN: Some redness and edema of the left lower extremity. CENTRAL NERVOUS SYSTEM: No focal deficits, tone is normal in all 4 extremities. EXTREMITIES: There is trace peripheral edema. No clubbing, no cyanosis. Peripheral pulses are intact. - Labs CBC & Chem 7: 11/15/17 05:49 11/15/17 05:49 Labs: Abnormal Lab Results - Last 24 Hours (Table) 11/14/17 11/14/17 11/14/17 Range/Units 11:59 17:03 18:20 RBC (3.80-5.40) m/uL Hgb (11.4-16.0) gm/dL MCV (80.0-100.0) fL MCHC (31.0-37.0) g/dL Lymphocytes # (1.0-4.8) k/uL Potassium (3.5-5.1) mmol/L BUN (7-17) mg/dL Creatinine (0.52-1.04) mg/dL Glucose (74-99) mg/dL POC Glucose (mg/dL) 108 H 137 H (75-99) mg/dL Phosphorus (2.5-4.5) mg/dL Urine Appearance Cloudy H (Clear) Urine Protein 1+ H (Negative) Urine Ketones 1+ H (Negative) Urine Blood Trace H (Negative) Ur Leukocyte Esterase Large H (Negative) Urine RBC 16 H (0-5) /hpf Urine WBC 158 H (0-5) /hpf Urine WBC Clumps Moderate H (None) /hpf Ur Squamous Epith Cells 30 H (0-4) /hpf Amorphous Sediment Few H (None) /hpf Hyaline Casts 28 H (0-2) /lpf Urine Mucus Rare H (None) /hpf 11/14/17 11/15/17 11/15/17 Range/Units 21:11 05:49 05:49 RBC 3.17 L (3.80-5.40) m/uL Hgb 9.7 L (11.4-16.0) gm/dL MCV 110.6 H (80.0-100.0) fL MCHC 27.8 L (31.0-37.0) g/dL Lymphocytes # 0.2 L (1.0-4.8) k/uL Potassium 5.3 H (3.5-5.1) mmol/L BUN 124 H* (7-17) mg/dL Creatinine 4.09 H (0.52-1.04) mg/dL Glucose 143 H (74-99) mg/dL POC Glucose (mg/dL) 147 H (75-99) mg/dL Phosphorus (2.5-4.5) mg/dL Urine Appearance (Clear) Urine Protein (Negative) Urine Ketones (Negative) Urine Blood (Negative) Ur Leukocyte Esterase (Negative) Urine RBC (0-5) /hpf Urine WBC (0-5) /hpf Urine WBC Clumps (None) /hpf Ur Squamous Epith Cells (0-4) /hpf Amorphous Sediment (None) /hpf Hyaline Casts (0-2) /lpf Urine Mucus (None) /hpf 11/15/17 11/15/17 Range/Units 05:49 06:14 RBC (3.80-5.40) m/uL Hgb (11.4-16.0) gm/dL MCV (80.0-100.0) fL MCHC (31.0-37.0) g/dL Lymphocytes # (1.0-4.8) k/uL Potassium (3.5-5.1) mmol/L BUN (7-17) mg/dL Creatinine (0.52-1.04) mg/dL Glucose (74-99) mg/dL POC Glucose (mg/dL) 154 H (75-99) mg/dL Phosphorus 7.3 H (2.5-4.5) mg/dL Urine Appearance (Clear) Urine Protein (Negative) Urine Ketones (Negative) Urine Blood (Negative) Ur Leukocyte Esterase (Negative) Urine RBC (0-5) /hpf Urine WBC (0-5) /hpf Urine WBC Clumps (None) /hpf Ur Squamous Epith Cells (0-4) /hpf Amorphous Sediment (None) /hpf Hyaline Casts (0-2) /lpf Urine Mucus (None) /hpf Assessment and Plan Assessment: Impression: #1 Acute exacerbation of combined systolic and diastolic congestive heart failure. Ejection fraction 40-45%. #2 Acute exacerbation of advanced oxygen dependent chronic obstructive pulmonary disease. FEV1 30% of predicted. #3 Acute on chronic hypoxic respiratory failure secondary to above. On oxygen at 2 L in the outpatient setting. #4 Moderate to severe pulmonary hypertension. #5 Chronic atrial fibrillation, anticoagulated with Eliquis. #6 Coronary artery disease, history of. #7 Hypothyroidism. #8 Degenerative arthritis. #9 Fibromyalgia. #10 Hyperlipidemia. #11 Cellulitis of the left lower extremity. #12 Poor overall functional performance based on the above-mentioned multiple comorbidities. #13 Acute on chronic renal failure. Current creatinine 4.09. Plan: The patient was seen and evaluated by Dr. Crowley. We'll continue with her current medications including bronchodilators, antibiotics in the form of Unasyn. We'll discontinue the IV Solu-Medrol and converted to oral prednisone taper. Cristianeis for anticoagulation. Her overall prognosis remains quite poor. She is considering renal replacement therapy. She remains a DO NOT RESUSCITATE/ DO NOT INTUBATE CODE STATUS. We'll continue to follow and make further recommendations based on her clinical stable. I, the cosigning physician, have performed a history and physical examination on the patient. Lung sounds crackles in the bilateral posterior bases. Faint end expiratory wheeze. Diminished throughout.. Maintaining good O2 saturations in the 90s on 3 L/m per nasal cannula. I have discussed the assessment and plan of care with my nurse practitioner, Jennifer Montes. I attest to the above consultation as dictated by her.
--- NOTE | 2017-11-15 10:55 | P.PN ---
Subjective Progress Note Date: 11/15/17 Principal diagnosis: Shortness of breath This is a pleasant 62-year-old female with known history of end-stage COPD, hypertension, hyperlipidemia, peripheral vascular disease with prior peripheral stenting, nonischemic cardiomyopathy, chronic persistent atrial fibrillation, prior cardiac ablation hypertension, hyperlipidemia, who is currently at [facility] for rehab, she presented to the hospital with a 2-3 day duration of worsening shortness of breath. Overall the patient states she's been doing fairly well. Patient does have a productive cough, positive PND and orthopnea. Positive peripheral edema. EKG on admission showed atrial fibrillation with an incomplete right bundle branch block pattern. Venous duplex study was negative for DVT in the left leg. Chest x-ray shows new mild congestive heart failure with pleural effusions as compared with prior exam. White blood cell count is normal, hemoglobin 11.2, platelet count 206. Sodium 140, potassium 4.4, chloride 90, CO2 41, BUN 28, creatinine 1.4. BNP level 10, 700., troponin 0.015, 0.012. TSH level 10.6. She was initiated on IV Lasix in the emergency room, she was also initiated on IV steroids and antibiotics. At the time of my examination this morning, she is sitting up in bed, continues to feel quite short of breath, significant wheezing. She also has evidence of significant redness and cellulitis in her left lower extremity. 11/07/2017 Patient seen and examined, overall states she is still short of breath, however she lies flat in bed and appears to be somewhat comfortable. Continues to have significant bilateral peripheral edema. Echo cardiac exam with Doppler study was repeated here which reveals an ejection fraction of 40-45%. Patient is diuresing, her weight and indicates that it is up 2 kg today. BUN 31, creatinine 1.3, hemoglobin 11.0. We will continue Lasix 40 mg twice a day IV. 11/12/2017 Patient seen and examined this morning, appears to be much more short of breath , significant edema overall. Persistent wheezy cough. BUN 80, creatinine 2.4, potassium 4.5. Blood pressure 90/50, heart rate in the 80s. 96% on 3 L of oxygen. Patient had made a decision today to be a no code. We would recommend a nephrology consultation. 11/13/2017 Patient seen and examined this morning, very short of breath today. Significantly wheezy. Diuretics have been placed on hold as well as her Entresto by nephrology. BUN 93, creatinine 3.0. 11/14 2017 Patient seen and examined this morning, creatinine up to 3.7 today. Much more sleepy today. Peripheral edema significantly improved. Continues to feel quite short of breath. Diuretics continue to be on hold, patient is receiving IV fluids at 50 mL per hour. 11/15/2017 Patient seen and examined this morning, appears a little depressed this morning , BUN 124, creatinine 4.0. Patient understands that her renal function is significantly worsening. Dr. Lowry, and Dr. Hogan both had a lengthy discussion with the patient. Pateint was told that she needs to consider either proceeding with dialysis or continue with comfort measures only. She was advised, that if she decides to proceed with dialysis at this should be performed as soon as possible. Overall, patient is short of breath, considerably retaining fluid. Urine output remains very marginal. Objective - Vital Signs Vital signs: Vital Signs Temp 97.4 F L 11/15/17 08:00 Pulse 100 11/15/17 08:16 Resp 20 11/15/17 08:00 BP 81/64 11/15/17 08:00 Pulse Ox 96 11/15/17 08:00 Intake & Output 11/14/17 11/15/17 11/15/17 18:59 06:59 18:59 Intake Total 330 600 120 Output Total 300 250 Balance 30 350 120 Weight 90.2 kg Intake: IV 600 Ampicillin-Sulbactam 3 gm 100 In Sodium Chloride 0.9% 100 ml @ 100 mls/hr IVPB Q12H [facility] Rx#:[id number] Sodium Chloride 0.9% 1, 500 000 ml @ 50 mls/hr IV . Q20H [facility] Rx#:[id number] Oral 330 120 Output: Urine 300 250 Other: Voiding Method Bedside Commode Bedside Commode # Voids 0 1 1 # Bowel Movements 1 1 1 - Exam PHYSICAL EXAMINATION: 62-year-old female, in mild distress today. HEENT: Head is atraumatic, normocephalic. Pupils equal, round. Neck is supple. There is elevated jugular venous pressure. HEART EXAMINATION: Heart S1 and S2 irregularly irregular CHEST EXAMINATION: Lungs reveal decreased air exchange throughout, scattered coarse wheezing throughout. ABDOMEN: Soft, nontender. Bowel sounds are heard. No organomegaly noted. EXTREMITIES: 1+ peripheral pulses with 1+ evidence of peripheral edema more in the left lower extremity than the right, evidence of cellulitis in the left lower extremity NEUROLOGIC patient is awake, alert and oriented -3. - Labs CBC & Chem 7: 11/15/17 05:49 11/15/17 05:49 Labs: Abnormal Lab Results - Last 24 Hours (Table) 11/14/17 11/14/17 11/14/17 Range/Units 11:59 17:03 18:20 RBC (3.80-5.40) m/uL Hgb (11.4-16.0) gm/dL MCV (80.0-100.0) fL MCHC (31.0-37.0) g/dL Lymphocytes # (1.0-4.8) k/uL Potassium (3.5-5.1) mmol/L BUN (7-17) mg/dL Creatinine (0.52-1.04) mg/dL Glucose (74-99) mg/dL POC Glucose (mg/dL) 108 H 137 H (75-99) mg/dL Phosphorus (2.5-4.5) mg/dL Urine Appearance Cloudy H (Clear) Urine Protein 1+ H (Negative) Urine Ketones 1+ H (Negative) Urine Blood Trace H (Negative) Ur Leukocyte Esterase Large H (Negative) Urine RBC 16 H (0-5) /hpf Urine WBC 158 H (0-5) /hpf Urine WBC Clumps Moderate H (None) /hpf Ur Squamous Epith Cells 30 H (0-4) /hpf Amorphous Sediment Few H (None) /hpf Hyaline Casts 28 H (0-2) /lpf Urine Mucus Rare H (None) /hpf 11/14/17 11/15/17 11/15/17 Range/Units 21:11 05:49 05:49 RBC 3.17 L (3.80-5.40) m/uL Hgb 9.7 L (11.4-16.0) gm/dL MCV 110.6 H (80.0-100.0) fL MCHC 27.8 L (31.0-37.0) g/dL Lymphocytes # 0.2 L (1.0-4.8) k/uL Potassium 5.3 H (3.5-5.1) mmol/L BUN 124 H* (7-17) mg/dL Creatinine 4.09 H (0.52-1.04) mg/dL Glucose 143 H (74-99) mg/dL POC Glucose (mg/dL) 147 H (75-99) mg/dL Phosphorus (2.5-4.5) mg/dL Urine Appearance (Clear) Urine Protein (Negative) Urine Ketones (Negative) Urine Blood (Negative) Ur Leukocyte Esterase (Negative) Urine RBC (0-5) /hpf Urine WBC (0-5) /hpf Urine WBC Clumps (None) /hpf Ur Squamous Epith Cells (0-4) /hpf Amorphous Sediment (None) /hpf Hyaline Casts (0-2) /lpf Urine Mucus (None) /hpf 11/15/17 11/15/17 Range/Units 05:49 06:14 RBC (3.80-5.40) m/uL Hgb (11.4-16.0) gm/dL MCV (80.0-100.0) fL MCHC (31.0-37.0) g/dL Lymphocytes # (1.0-4.8) k/uL Potassium (3.5-5.1) mmol/L BUN (7-17) mg/dL Creatinine (0.52-1.04) mg/dL Glucose (74-99) mg/dL POC Glucose (mg/dL) 154 H (75-99) mg/dL Phosphorus 7.3 H (2.5-4.5) mg/dL Urine Appearance (Clear) Urine Protein (Negative) Urine Ketones (Negative) Urine Blood (Negative) Ur Leukocyte Esterase (Negative) Urine RBC (0-5) /hpf Urine WBC (0-5) /hpf Urine WBC Clumps (None) /hpf Ur Squamous Epith Cells (0-4) /hpf Amorphous Sediment (None) /hpf Hyaline Casts (0-2) /lpf Urine Mucus (None) /hpf Assessment and Plan Plan: Assessment and plan #1 systolic congestive heart failure acute on chronic #2 exacerbation of COPD #3 known history of moderate to severe peripheral vascular disease with prior stenting #4 chronic persistent atrial fibrillation, on Eliquis for anticoagulation, patient did have prior ablation. #5 acute on chronic kidney injury #6 nonischemic cardiomyopathy #7 hypertension #8 hyperlipidemia #9 moderate to severe COPD Plan From cardiology's perspective, we will continue her current medications. As mentioned previously in this note, patient needs to make a determination whether to proceed with dialysis or to go on hospice care. Further recommendations will be based on these findings and the patient's clinical course. DNP note has been reviewed, I agree with a documented findings and plan of care. Patient was seen and examined.
[2017-11-15 12:12] LABS: Glucose,Whole Blood 145 mg/dL (75-99)
[2017-11-15] MEDS: AMPICILLIN-SULBACTAM 3 GM in SODIUM CHLORIDE 0.9% 100 ML IVPB SCH (12:29)
[2017-11-15] MEDS ORDERED: AMOXICILLIN 500 MG CAP PO STA (16:16)
[2017-11-15 17:08] LABS: Glucose,Whole Blood 249 mg/dL (75-99)
[2017-11-15 17:08] LABS: Glucose,Whole Blood 157 mg/dL (75-99)
--- NOTE | 2017-11-15 17:55 | P.PN ---
Progress Note - Text Progress Note Date: 11/15/17 DATE OF SERVICE: 11/15/2017 PRESENTING COMPLAINT: Increasing shortness of breath HISTORY OF PRESENT ILLNESS: 82-year-old female who presented with increasing shortness of breath, unable to finish sentences short of breath at rest positive cough production, afebrile.Also had some redness and swelling concerning for cellulitis to the left lower extremity.Admitted for the same. INTERVAL HISTORY: 11/15/2017: Sitting up on the edge of the bed, tired appearing less lethargic today. No acute overnight events, afebrile, shortness of breath improving, no cough noted able to lie flat in bed. Very weak and debilitated transferring from the bed to the bedside commode only. BUN and creatinine continue to rise, fluid balance -110 mL. Appetite is improving, eating 50% of her meals. Last BM 11/15. 11/14/2017: Lying in bed, tired appearing. Very lethargic, afebrile, shortness of breath improving, no cough noted, able to lie flat in bed. Very weak and debilitated can transfer from the bed to the bedside commode. BUN and Creatinine continue to rise, fluid balance for the last 24 hours +20 mL. Appetite fair, eating less than 50% of her meals. Last BM 11/12/2017. 11/13/2017: Lying in bed tired appearing, afebrile, continues to be short of breath at rest , coarse cough is able to lie flat in bed. Very weak and debilitated only able to transfer from the bed to the bedside commode. BUN and creatinine continue to rise, nephrology to see the patient. Negative fluid balance of 505 mL Appetite fair, eating not more than 50% and does sit at the edge of the bed for meals. Last BM 11/12/2017. 11/12/2017: Lying in bed, resting quietly, afebrile, shortness of breath at rest but is able to lay flat in the bed,. Weak and debilitated only able to transfer from the bed to the bedside commode with a walker. BUN and creatinine continue to rise. Nephrology consulted. Discussion had regarding CODE STATUS and wishes to BE a no code. Appetite continues to be fair eating about 50% and sits up at the edge of the bed as well as using the bedside commode. 11/11/2017: Lying in bed, afebrile, breathing and shortness of breath about the same, raspiness in the throat has subsided, cough no sputum production. Overall appears to be pretty weak and debilitated. BUN 69 and creatinine 2.00, remains on Lasix by mouth, subconjunctival hemorrhage to the left eye continues to improve. Fluid balance +980 mL. Left lower extremity cellulitis improving Silvadene and Curlex continue. Appetite improving eating just about 50% of her meals does sit up at the edge of the bed and does use a bedside commode but able to do very little else. 11/10/2017: Lying in bed, afebrile, breathing and shortness of breath improving still has a raspy sounding voice and a cough with no sputum production. Solu-Medrol remains IV at 60 mg, Diamox added and Lasix continues to be given by mouth. Renal function worsening today. Subconjunctival hemorrhage to the left eye improving. Fluid balance -460 mL. Appetite continues to be low, eating only about 50% of her meals, only able to tolerate getting up to the bedside commode terms of activity, left lower extremity cellulitis improving Silvadene and Curlex continue. 11/09/2017: Lying in bed, afebrile, increased work of breathing, cough wheezing feels short of breath. Solu-Medrol increased, Diamox added Lasix switched to by mouth. Elevated kidney function today as well. Patient noted to have a subconjunctival hemorrhage to the left eye, likely due to coughing. 11/08/2017: Lying in bed, shortness of breath improving continues to be short of breath with minimal exertion. Mild conversational dyspnea, coarse cough, some sputum production, afebrile. Left lower extremity warm red tender dressed with Silvadene cream and Curlex wrap. Appetite is low, up with assistance. Last BM 11/07/2017. Remains on IV Lasix, negative fluid balance of 1520 mL. 11/07/2017: lying in bed continues to be short of breath at rest and with minimal exertion. Continues to have conversational dyspnea, has a cough no sputum afebrile. Left lower extremity with Silvadene cream and Curlex wrap and ampicillin .appetite low, up with assistance, last BM11/07/2017: REVIEW OF SYSTEMS: Done for constitutional ,cardiovascular, GI, pulmonary with relevant findings as above. CURRENT MEDICATIONS Tylenol, [place], DuoNeb, amiodarone, ampicillin, Eliquis, aspirin, Lipitor, Dulcolax, Pulmicort, Lexapro, Pepcid, Feosol, Diflucan Perforomist, NovoLog, Synthroid, Imodium, Ativan, milk of magnesia, melatonin, prednisone, Lopressor, Silvadene cream, PHYSICAL EXAM VITAL SIGNS: Temperature 97.3, pulse 100, respiratory rate 20, blood pressure 106/52, oxygen saturation 98% on 3 L GENERAL APPEARANCE: Sitting up in the bed mildly anxious and irritated. HENT: Normocephalic, oral cavity normal, external appearance of ears/nose normal NECK:JVD raised. Mass not palpable. EYES:Pupils equal.conjunctiva normal, has exophthalmos, MOUTH: Oral cavity with white patches noted to buccal area and posterior pharynx RESPIRATORY: Respiratory effort increased. Lungs diminished with inspiratory and expiratory wheezing, . CARDIOVASCULAR: First and second sounds normal.mild edema. ABDOMEN: Soft. Liver and spleen not palpable. No tenderness. No mass palpable. PSYCHIATRY: Alert and oriented x3. Mood and affect flat and somewhat lethargic INTEGUMENT: Left lower extremity reddened, no drainage noted INVESTIGATIONS: LABS: Hemoglobin 9.7, potassium 5.3, BUN 124, creatinine 4.09, Accu-Cheks noted. Blood cultures no growth after 144 hours ASSESSMENT: -acute on chronic congestive heart failure exacerbation from systolic dysfunction, from non ischemic cardiomyopathy ejection fraction 40-45 percent worsening obstructive pulmonary disease exacerbation in an ex-smoker, slow to respond -Acute metabolic encephalopathy secondary to worsening renal function -Acute renal failure probably acute tubular necrosis with a prerenal component due to hypotension and severe diuresis worsening -Chronic kidney disease stage III secondary to nephrosclerosis cardiac renal syndrome with baseline creatinine in the range of 1.3-1.5. -moderate tricuspid regurgitation, nonrheumatic. -Severe secondary pulmonary hypertension secondary to chronic obstructive pulmonary disease. -Persistent atrial fibrillation/flutter chronically on Eliquis. -Subconjunctival hemorrhage left eye likely due to coughing episodes, improving -Restless leg syndrome, chronic. -Chronic fibromyalgia. -Primary osteoarthritis multiple joints, bilateral. -Chronic hypoxic respiratory failure from underlying chronic obstructive pulmonary disease on 3 L of oxygen at home. -Acute hypoxic respiratory failure from chronic obstructive pulmonary disease present on admission. -Hypothyroidism. -Medical debility. -Gait dysfunction uses a walker. -Peripheral arterial disease with prior history of stent. -Acute left lower extremity cellulitis, improving -Oral candidiasis in a patient who is on antibiotics, improving -CODE STATUS DO NOT RESUSCITATE. PLAN: BUN and creatinine continue to rise nephrology discussed with the patient the need for renal replacement therapy in the next 24-72 hours depending on her renal function and volume status. Will receive Lasix challenge of 60 mg IV 1 dose, gentle hydration with normal saline at 50 mL an hour, continue to hold entresto. Continue nebulized bronchodilators, prednisone daily and antibiotics in the form of ampicillin, Eliquis for anticoagulation. has oral candidiasis Diflucan continues with routine oral care. Family meeting had yesterday with Dr. Ramos and agree overall prognosis is not good and agree that if patient deteriorates no heroic measures should be performed. Plan of care discussed at the bedside patient is agreeable, we will follow closely. SYSTEMS DESIGNER statement: Patient was seen and examined by nurse practitioner Cathie Monk and all elements of the case discussed with attending Dr. Ramos
[2017-11-15 20:38] LABS: Glucose,Whole Blood 261 mg/dL (75-99)
[2017-11-15] MEDS: ATORVASTATIN 80 MG TAB PO SCH (20:54)
[2017-11-15] MEDS: MELATONIN 5 MG TABLET PO SCH (20:54)
--- NOTE | 2017-11-15 22:20 | PN ---
PROGRESS NOTE DATE OF SERVICE: 11/15/2017. ATTENDING NOTE: The patient seen and examined by me. I discussed with my nurse practitioner, Ms. Monk. The patient presented with CHF exacerbation, received Lasix, went into acute renal failure and subsequent to that metabolic encephalopathy. Able to answer some questions, though encephalopathic. Tolerating some diet. EXAMINATION: Temperature 97.3, pulse 100, respirations 20, blood pressure 106/52, pulse ox 98% on 3L. Sitting up, tired-appearing. Able to answer some questions, lethargic. INVESTIGATIONS: White count 6.7. Potassium 5.3, BUN 124, creatinine 4.09. ASSESSMENT: 1. Acute severe renal failure, worsening probably prerenal and component of acute tubular necrosis causing acute metabolic encephalopathy. 2. Multiple other medical problems including advanced chronic obstructive pulmonary disease, worsening. PLAN: Continue with medication and treatment plan. Patient has been on IV fluids now gently at 50 mL an hour. Prognosis not good. Even without the hemodialysis, patient's overall prognosis has not been and dialysis is not felt to be a good option, given her overall quality of life, which has been gradually deteriorating over a period of time from pulmonary and cardiac status. MMODL / IJN: [id number] /
[2017-11-16 05:46] LABS: Glucose,Whole Blood 118 mg/dL (75-99)
[2017-11-16] MEDS: INSULIN ASPART 100 UNIT/ML 1 ML 10 ML VIAL SQ SCH ×4 (06:18→21:54)
[2017-11-16] MEDS: LEVOTHYROXINE 137 MCG TAB PO SCH (06:38)
[2017-11-16 06:44] LABS: Calcium 8.6 mg/dL (8.4-10.2); Potassium 5.1 mmol/L (3.5-5.1)
[2017-11-16] MEDS: ASPIRIN 81 MG PO SCH (08:11)
[2017-11-16] MEDS: FLUCONAZOLE 100 MG TAB PO SCH (08:11)
[2017-11-16] MEDS: FAMOTIDINE 20 MG TAB PO SCH (08:12)
[2017-11-16] MEDS: AMIODARONE 200 MG TAB PO SCH (08:12)
[2017-11-16] MEDS: METOPROLOL TARTRATE 25 MG TAB PO SCH ×2 (08:12→17:29)
[2017-11-16] MEDS: ESCITALOPRAM 20 MG TAB PO SCH (08:12)
[2017-11-16] MEDS: predniSONE 20 MG TAB PO SCH (08:13)
[2017-11-16] MEDS: APIXABAN 2.5 MG TABLET PO SCH ×2 (08:13→21:39)
[2017-11-16] MEDS: FERROUS SULFATE 325 MG TAB PO SCH ×2 (08:15→21:40)
[2017-11-16] MEDS: IPRATROPIUM-ALBUTEROL 3 ML NEB INHALATION SCH ×4 (08:27→21:07)
[2017-11-16] MEDS: FORMOTEROL FUMARATE 20 MCG/2 ML NEBU INHALATION SCH ×2 (08:27→19:43)
[2017-11-16] MEDS: BUDESONIDE 0.5 MG/2 ML NEBU INHALATION SCH ×2 (08:27→21:07)
[2017-11-16] MEDS: LORazepam 0.5 MG TAB PO PRN ×2 (09:31→20:33)
--- NOTE | 2017-11-16 12:23 | P.PN ---
Subjective Patient is seen in follow-up for acute kidney injury. Patient has chronic kidney disease stage III with baseline creatinine in the range of 1.3-1.5 secondary to nephrosclerosis and cardiorenal syndrome. Renal function continues to worsen with creatinine up to 4.5 today. There is no evidence of urinary retention. Urine output documented as 200 mL in the last 24 hours, but I'm not sure how accurate this is. She remains dyspneic requiring oxygen support. She has systolic CHF with ejection fraction of 40-45% with moderate tricuspid regurgitation. Vital signs are stable. General: The patient appeared well nourished and normally developed. HEENT: Head exam is unremarkable. Neck is without jugular venous distension. LUNGS: Breath sounds decreased. HEART: Rate and Rhythm are regular. First and second heart sounds normal. No murmurs, rubs or gallops. ABDOMEN: Abdominal exam reveals normal bowel sounds. Non-tender and non- distended. No evidence of peritonitis. EXTREMITITES: 2+ edema. Objective - Vital Signs Vital signs: Vital Signs Temp 97.8 F 11/16/17 11:51 Pulse 79 11/16/17 11:51 Resp 20 11/16/17 11:51 BP 138/75 11/16/17 11:51 Pulse Ox 100 11/16/17 08:30 Intake & Output 11/15/17 11/16/17 11/16/17 18:59 06:59 18:59 Intake Total 1060 100 Output Total 50 150 200 Balance 1010 -150 -100 Intake: IV 700 Ampicillin-Sulbactam 3 gm 100 In Sodium Chloride 0.9% 100 ml @ 100 mls/hr IVPB Q12H [facility] Rx#:[id number] Sodium Chloride 0.9% 1, 600 000 ml @ 50 mls/hr IV . Q20H [facility] Rx#:[id number] Oral 360 100 Output: Urine 50 150 200 Other: Voiding Method Bedside Commode # Voids 1 # Bowel Movements 1 1 - Labs CBC & Chem 7: 11/15/17 05:49 11/16/17 05:39 Labs: Abnormal Lab Results - Last 24 Hours (Table) 11/15/17 11/15/17 11/15/17 Range/Units 17:01 17:04 20:37 Carbon Dioxide (22-30) mmol/L BUN (7-17) mg/dL Creatinine (0.52-1.04) mg/dL Glucose (74-99) mg/dL POC Glucose (mg/dL) 249 H 157 H 261 H (75-99) mg/dL 11/16/17 11/16/17 Range/Units 05:39 05:45 Carbon Dioxide 33 H (22-30) mmol/L BUN 133 H* (7-17) mg/dL Creatinine 4.50 H (0.52-1.04) mg/dL Glucose 111 H (74-99) mg/dL POC Glucose (mg/dL) 118 H (75-99) mg/dL Assessment and Plan Plan: Assessment: #1. Acute kidney injury secondary to ATN secondary to hypotension and cardiorenal syndrome. Creatinine up to 4.5 today. Vancomycin level also noted to be on the higher side at 34.2 as of November 12. BUN elevated due to acute kidney injury as well as steroids. Stool for occult blood noted to be positive but hemoglobin relatively stable. No evidence of urinary retention. Urine eosinophils negative. #2. Chronic kidney disease stage III secondary to nephrosclerosis and cardiac renal syndrome with baseline creatinine in the range of 1.3-1.5. #3. Systolic CHF with ejection fraction of 40-45% with moderate tricuspid regurgitation. #4. Volume overload. #5. Acute COPD maintained on IV steroids. #5. Lower extremity cellulitis maintained on antibiotics. Plan: Hep-Lock IV fluids. Add Lasix 60 mg IV twice daily. Discontinued Fleet enemas. Repeat electrolytes in the morning. Accurate I's and O's. Discussed with the patient regarding worsening renal failure and need to start renal replacement therapy. It appears a family meeting was held with attending physician and no invasive or heroic measures are to be done. Patient today is alert and oriented and wishes for no renal replacement therapy at this time.
[2017-11-16] MEDS ORDERED: FUROSEMIDE 10 MG/ML 10 ML VIAL IV SCH (12:30)
[2017-11-16] MEDS: NON-FORMULARY DRUG (Colloidal Oatmeal [Eucerin Eczema Relief] 1 APPLIC) TOPICAL SCH ×2 (12:31→21:43)
[2017-11-16 12:42] LABS: Glucose,Whole Blood 129 mg/dL (75-99)
[2017-11-16 12:53] LABS: Glucose,Whole Blood 133 mg/dL (75-99)
--- NOTE | 2017-11-16 13:36 | P.PN ---
Subjective Progress Note Date: 11/16/17 Principal diagnosis: Acute on chronic hypoxic respiratory failure secondary to COPD exacerbation and systolic congestive heart failure This is a 62-year-old female with a history of combined systolic and diastolic heart failure with an ejection fraction of about 40%. In addition, she has stage IV COPD with an FEV1 that's 30% of predicted. In addition she has hypoxemic respiratory failure, severe pulmonary hypertension, chronic atrial fibrillation, CAD, hypothyroidism, DJD, fibromyalgia, hyperlipidemia, lower extremity cellulitis, and general medical debility. The patient is a no code. I would strongly consider a hospice evaluation or palliative care consultation. We'll leave that up to the primary. Overall prognosis is very poor. Today, she's very lethargic and somnolent. Difficult to arouse. She really is not able to give any history in terms of how she is feeling. She is laying his basically flat. Oxygen in place. Her lower semis are wrapped because of cellulitis. On 11/13/2017 patient seen in follow-up on selective care floor. Resting in bed , somnolent, but easily arousable to verbal stimuli. Denies any acute distress , lung sounds are generally diminished, with a few bibasilar crackles. Wearing 3 L per nasal cannula with O2 sat at 98%. Remains afebrile. Chest x-ray from 11/13/2017 shows pulmonary venous congestion and cardiomegaly with interstitial edema. Small pleural effusions are seen. Patient's blood pressures have been labile and ranging from 80s to 130s systolic. Patient was initially receiving IV diuresis, which was subsequently changed to oral diuretics, in view of her worsening renal function. On today's lab work, her BUN is up to 93, and creatinine is up to 3. Per nephrology, Entresto, Diamox and Lasix are on hold, renal replacement therapy is being considered at this point. Patient's bilateral lower extremity edema is improving. She does still have some conversational dyspnea, but no acute respiratory distress was noted. Her level of activity is limited. Oral intake is poor. Patient continues on Unasyn for empiric antibiotic coverage. Was cultures show no growth. No wheezing noted. We will wean down the Solu-Medrol to 40 mg every 12 hours. On 11/16/2017 patient seen again on selective care floor. Resting in bed, in no acute distress. Appears very weak, withdrawn. On 3 L per nasal cannula, with O2 sat at 100%. There is generalized anasarca noted, face, upper arms and legs, abdomen. We're told patient had a discussion with nephrology about dialysis in view of her worsening renal function and persistent congestive heart failure. At this point patient still has a good urine output, but she did refuse initiation of hemodialysis. Patient is on Lasix 60 mg IV twice daily. Lung sounds are diminished, with bibasilar crackles, but no acute distress at this time. Family meeting was held with the attending physician, patient was recommended palliative care. Patient is a DO NOT RESUSCITATE, from our standpoint we support the recommendation for palliative care and hospice. Objective - Vital Signs Vital signs: Vital Signs Temp 97.8 F 11/16/17 11:51 Pulse 98 11/16/17 12:47 Resp 20 11/16/17 11:51 BP 138/75 11/16/17 11:51 Pulse Ox 100 11/16/17 08:30 Intake & Output 11/15/17 11/16/17 11/16/17 18:59 06:59 18:59 Intake Total 1060 220 Output Total 50 150 400 Balance 1010 -150 -180 Intake: IV 700 Ampicillin-Sulbactam 3 gm 100 In Sodium Chloride 0.9% 100 ml @ 100 mls/hr IVPB Q12H [facility] Rx#:[id number] Sodium Chloride 0.9% 1, 600 000 ml @ 50 mls/hr IV . Q20H [facility] Rx#:[id number] Oral 360 220 Output: Urine 50 150 400 Other: Voiding Method Bedside Commode # Voids 1 # Bowel Movements 1 1 - Exam No acute distress. The patient is very lethargic but easily arousable to verbal stimuli, still has conversational dyspnea, HEENT examination is grossly unremarkable. Mucous membranes are moist. No oral lesions. Neck supple. Full range of motion. No adenopathy thyromegaly or neck vein distention. Cardiovascular examination reveals regular rhythm rate. S1-S2 normal. No S3 or S4. No discernible murmur noted. Lungs diffuse rhonchi. No wheezes are noted. A few bibasilar crackles. Breath sounds are severely diminished. There is slight prolongation. Abdomen soft bowel sounds are heard. No masses or tenderness. Extremities are intact. There is evidence of bilateral lower extremity cellulitis. There is edema in the lower semis bilaterally. No cyanosis or clubbing.. Skin reveals diffuse areas of ecchymoses. Neurologic examination cannot be adequately performed. - Labs CBC & Chem 7: 11/15/17 05:49 11/16/17 05:39 Labs: Abnormal Lab Results - Last 24 Hours (Table) 11/15/17 11/15/17 11/15/17 Range/Units 17:01 17:04 20:37 Carbon Dioxide (22-30) mmol/L BUN (7-17) mg/dL Creatinine (0.52-1.04) mg/dL Glucose (74-99) mg/dL POC Glucose (mg/dL) 249 H 157 H 261 H (75-99) mg/dL 11/16/17 11/16/17 11/16/17 Range/Units 05:39 05:45 11:57 Carbon Dioxide 33 H (22-30) mmol/L BUN 133 H* (7-17) mg/dL Creatinine 4.50 H (0.52-1.04) mg/dL Glucose 111 H (74-99) mg/dL POC Glucose (mg/dL) 118 H 129 H (75-99) mg/dL 11/16/17 Range/Units 12:24 Carbon Dioxide (22-30) mmol/L BUN (7-17) mg/dL Creatinine (0.52-1.04) mg/dL Glucose (74-99) mg/dL POC Glucose (mg/dL) 133 H (75-99) mg/dL Assessment and Plan Plan: Assessment: #1. Acute on chronic hypoxic respiratory failure secondary to acute COPD exacerbation, and acute systolic congestive heart failure, ejection fraction of 40-45% #2. Dyspnea secondary to the above #3. Advanced oxygen-dependent COPD, baseline FEV1 of 30% of predicted #4. Moderate to severe pulmonary hypertension #5. Acute on chronic kidney disease stage III, with baseline creatinine in the range of 1.3-1.5 secondary to nephrosclerosis and cardiorenal syndrome #6. History of moderate to severe peripheral vascular disease with prior stenting #7. Chronic persistent atrial fibrillation, on Eliquis for anticoagulation, history of prior ablation #8. Hypertension #9. Hyperlipidemia #10. Coronary artery disease #11. Degenerative arthritis, fibromyalgia #12. Cellulitis of the left lower extremity #13. Poor overall functional performance based on the above-mentioned multiple comorbidities Plan: Patient's has worsening renal function, nephrology is following, patient refused hemodialysis in case of further worsening. Continues on IV Lasix at 60 mg twice a day. From our standpoint continue nebulized treatments, continue antibiotics, we'll switch Solu-Medrol to oral prednisone. Patient is a DO NOT RESUSCITATE, we recommend palliative care. I performed a history & physical examination of the patient and discussed their management with my nurse practitioner, Ely Shetty. I reviewed the nurse practitioner's note and agree with the documented findings and plan of care. Lung sounds are diminished, with a few bibasilar crackles. The findings and the impression was discussed with the patient. I attest to the documentation by the nurse practitioner. Time with Patient: Less than 30
--- NOTE | 2017-11-16 13:46 | P.PN ---
Subjective Progress Note Date: 11/16/17 Principal diagnosis: Shortness of breath This is a pleasant 62-year-old female with known history of end-stage COPD, hypertension, hyperlipidemia, peripheral vascular disease with prior peripheral stenting, nonischemic cardiomyopathy, chronic persistent atrial fibrillation, prior cardiac ablation hypertension, hyperlipidemia, who is currently at [facility] for rehab, she presented to the hospital with a 2-3 day duration of worsening shortness of breath. Overall the patient states she's been doing fairly well. Patient does have a productive cough, positive PND and orthopnea. Positive peripheral edema. EKG on admission showed atrial fibrillation with an incomplete right bundle branch block pattern. Venous duplex study was negative for DVT in the left leg. Chest x-ray shows new mild congestive heart failure with pleural effusions as compared with prior exam. White blood cell count is normal, hemoglobin 11.2, platelet count 206. Sodium 140, potassium 4.4, chloride 90, CO2 41, BUN 28, creatinine 1.4. BNP level 10, 700., troponin 0.015, 0.012. TSH level 10.6. She was initiated on IV Lasix in the emergency room, she was also initiated on IV steroids and antibiotics. At the time of my examination this morning, she is sitting up in bed, continues to feel quite short of breath, significant wheezing. She also has evidence of significant redness and cellulitis in her left lower extremity. 11/07/2017 Patient seen and examined, overall states she is still short of breath, however she lies flat in bed and appears to be somewhat comfortable. Continues to have significant bilateral peripheral edema. Echo cardiac exam with Doppler study was repeated here which reveals an ejection fraction of 40-45%. Patient is diuresing, her weight and indicates that it is up 2 kg today. BUN 31, creatinine 1.3, hemoglobin 11.0. We will continue Lasix 40 mg twice a day IV. 11/12/2017 Patient seen and examined this morning, appears to be much more short of breath , significant edema overall. Persistent wheezy cough. BUN 80, creatinine 2.4, potassium 4.5. Blood pressure 90/50, heart rate in the 80s. 96% on 3 L of oxygen. Patient had made a decision today to be a no code. We would recommend a nephrology consultation. 11/13/2017 Patient seen and examined this morning, very short of breath today. Significantly wheezy. Diuretics have been placed on hold as well as her Entresto by nephrology. BUN 93, creatinine 3.0. 11/14 2017 Patient seen and examined this morning, creatinine up to 3.7 today. Much more sleepy today. Peripheral edema significantly improved. Continues to feel quite short of breath. Diuretics continue to be on hold, patient is receiving IV fluids at 50 mL per hour. 11/15/2017 Patient seen and examined this morning, appears a little depressed this morning , BUN 124, creatinine 4.0. Patient understands that her renal function is significantly worsening. Dr. Lowry, and Dr. Hogan both had a lengthy discussion with the patient. Pateint was told that she needs to consider either proceeding with dialysis or continue with comfort measures only. She was advised, that if she decides to proceed with dialysis at this should be performed as soon as possible. Overall, patient is short of breath, considerably retaining fluid. Urine output remains very marginal. 11/16/2017 Patient was seen and examined this morning, much more swollen today, urine output is very marginal. Creatinine up to 4.5. Patient has made it very clear this morning that she does not wish to pursue or proceed with dialysis. We will request a hospice consult for her. Objective - Vital Signs Vital signs: Vital Signs Temp 97.8 F 11/16/17 11:51 Pulse 98 11/16/17 12:47 Resp 20 11/16/17 11:51 BP 138/75 11/16/17 11:51 Pulse Ox 100 11/16/17 08:30 Intake & Output 11/15/17 11/16/17 11/16/17 18:59 06:59 18:59 Intake Total 1060 220 Output Total 50 150 400 Balance 1010 -150 -180 Intake: IV 700 Ampicillin-Sulbactam 3 gm 100 In Sodium Chloride 0.9% 100 ml @ 100 mls/hr IVPB Q12H YOSELIN Rx#:[id number] Sodium Chloride 0.9% 1, 600 000 ml @ 50 mls/hr IV . Q20H YOSELIN Rx#:[id number] Oral 360 220 Output: Urine 50 150 400 Other: Voiding Method Bedside Commode # Voids 1 # Bowel Movements 1 1 - Exam PHYSICAL EXAMINATION: 62-year-old female, in mild distress today. HEENT: Head is atraumatic, normocephalic. Pupils equal, round. Neck is supple. There is elevated jugular venous pressure. HEART EXAMINATION: Heart S1 and S2 irregularly irregular CHEST EXAMINATION: Lungs reveal decreased air exchange throughout, scattered coarse wheezing throughout. ABDOMEN: Soft, nontender. Bowel sounds are heard. No organomegaly noted. EXTREMITIES: 1+ peripheral pulses with 2-3+ evidence of peripheral edema more in the left lower extremity than the right, evidence of cellulitis in the left lower extremity NEUROLOGIC patient is awake, alert and oriented -3. - Labs CBC & Chem 7: 11/15/17 05:49 11/16/17 05:39 Labs: Abnormal Lab Results - Last 24 Hours (Table) 11/15/17 11/15/17 11/15/17 Range/Units 17:01 17:04 20:37 Carbon Dioxide (22-30) mmol/L BUN (7-17) mg/dL Creatinine (0.52-1.04) mg/dL Glucose (74-99) mg/dL POC Glucose (mg/dL) 249 H 157 H 261 H (75-99) mg/dL 11/16/17 11/16/17 11/16/17 Range/Units 05:39 05:45 11:57 Carbon Dioxide 33 H (22-30) mmol/L BUN 133 H* (7-17) mg/dL Creatinine 4.50 H (0.52-1.04) mg/dL Glucose 111 H (74-99) mg/dL POC Glucose (mg/dL) 118 H 129 H (75-99) mg/dL 11/16/17 Range/Units 12:24 Carbon Dioxide (22-30) mmol/L BUN (7-17) mg/dL Creatinine (0.52-1.04) mg/dL Glucose (74-99) mg/dL POC Glucose (mg/dL) 133 H (75-99) mg/dL Assessment and Plan Plan: Assessment and plan #1 systolic congestive heart failure acute on chronic #2 exacerbation of COPD #3 known history of moderate to severe peripheral vascular disease with prior stenting #4 chronic persistent atrial fibrillation, on Eliquis for anticoagulation, patient did have prior ablation. #5 acute on chronic kidney injury #6 nonischemic cardiomyopathy #7 hypertension #8 hyperlipidemia #9 moderate to severe COPD Plan From cardiology's perspective, we will continue her current medications. Patient is refusing dialysis, we will request a hospice consultation. RICKY note has been reviewed, I agree with a documented findings and plan of care. Patient was seen and examined.
[2017-11-16] MEDS: FUROSEMIDE 20 MG TAB PO SCH ×2 (14:01→17:31)
[2017-11-16 17:08] LABS: Glucose,Whole Blood 185 mg/dL (75-99)
--- NOTE | 2017-11-16 17:13 | P.PN ---
Progress Note - Text Progress Note Date: 11/16/17 DATE OF SERVICE: 11/16/2017 PRESENTING COMPLAINT: Increasing shortness of breath HISTORY OF PRESENT ILLNESS: 82-year-old female who presented with increasing shortness of breath, unable to finish sentences short of breath at rest positive cough production, afebrile.Also had some redness and swelling concerning for cellulitis to the left lower extremity.Admitted for the same. INTERVAL HISTORY: 11/16/2017: Sitting up on the edge of the bed, tired appearing more lethargic today, some component of confusion. No acute overnight events, afebrile, shortness of breath improving, no cough noted. Able to lie flat in bed. Very weak and debilitated, transferring from the bed to the bedside commode only. Attempted to have a discussion regarding hemodialysis versus hospice patient became agitated and didn't really want to talk to me. Creatinine continues to rise, urine output for the last 24 hours is 250ml. Appetite is poor today, he is 50% of her meals. Last BM 2017. 11/15/2017: Sitting up on the edge of the bed, tired appearing less lethargic today. No acute overnight events, afebrile, shortness of breath improving, no cough noted able to lie flat in bed. Very weak and debilitated transferring from the bed to the bedside commode only. BUN and creatinine continue to rise, fluid balance -110 mL. Appetite is improving, eating 50% of her meals. Last BM 11/15. 11/14/2017: Lying in bed, tired appearing. Very lethargic, afebrile, shortness of breath improving, no cough noted, able to lie flat in bed. Very weak and debilitated can transfer from the bed to the bedside commode. BUN and Creatinine continue to rise, fluid balance for the last 24 hours +20 mL. Appetite fair, eating less than 50% of her meals. Last BM 11/12/2017. 11/13/2017: Lying in bed tired appearing, afebrile, continues to be short of breath at rest , coarse cough is able to lie flat in bed. Very weak and debilitated only able to transfer from the bed to the bedside commode. BUN and creatinine continue to rise, nephrology to see the patient. Negative fluid balance of 505 mL Appetite fair, eating not more than 50% and does sit at the edge of the bed for meals. Last BM 11/12/2017. 11/12/2017: Lying in bed, resting quietly, afebrile, shortness of breath at rest but is able to lay flat in the bed,. Weak and debilitated only able to transfer from the bed to the bedside commode with a walker. BUN and creatinine continue to rise. Nephrology consulted. Discussion had regarding CODE STATUS and wishes to BE a no code. Appetite continues to be fair eating about 50% and sits up at the edge of the bed as well as using the bedside commode. 11/11/2017: Lying in bed, afebrile, breathing and shortness of breath about the same, raspiness in the throat has subsided, cough no sputum production. Overall appears to be pretty weak and debilitated. BUN 69 and creatinine 2.00, remains on Lasix by mouth, subconjunctival hemorrhage to the left eye continues to improve. Fluid balance +980 mL. Left lower extremity cellulitis improving Silvadene and Curlex continue. Appetite improving eating just about 50% of her meals does sit up at the edge of the bed and does use a bedside commode but able to do very little else. 11/10/2017: Lying in bed, afebrile, breathing and shortness of breath improving still has a raspy sounding voice and a cough with no sputum production. Solu-Medrol remains IV at 60 mg, Diamox added and Lasix continues to be given by mouth. Renal function worsening today. Subconjunctival hemorrhage to the left eye improving. Fluid balance -460 mL. Appetite continues to be low, eating only about 50% of her meals, only able to tolerate getting up to the bedside commode terms of activity, left lower extremity cellulitis improving Silvadene and Curlex continue. 11/09/2017: Lying in bed, afebrile, increased work of breathing, cough wheezing feels short of breath. Solu-Medrol increased, Diamox added Lasix switched to by mouth. Elevated kidney function today as well. Patient noted to have a subconjunctival hemorrhage to the left eye, likely due to coughing. 11/08/2017: Lying in bed, shortness of breath improving continues to be short of breath with minimal exertion. Mild conversational dyspnea, coarse cough, some sputum production, afebrile. Left lower extremity warm red tender dressed with Silvadene cream and Curlex wrap. Appetite is low, up with assistance. Last BM 11/07/2017. Remains on IV Lasix, negative fluid balance of 1520 mL. 11/07/2017: lying in bed continues to be short of breath at rest and with minimal exertion. Continues to have conversational dyspnea, has a cough no sputum afebrile. Left lower extremity with Silvadene cream and Curlex wrap and ampicillin .appetite low, up with assistance, last BM11/07/2017: REVIEW OF SYSTEMS: Done for constitutional ,cardiovascular, GI, pulmonary with relevant findings as above. CURRENT MEDICATIONS Tylenol, [place], DuoNeb, amiodarone, Eliquis, aspirin, Lipitor, Dulcolax, Pulmicort, Lexapro, Pepcid, Feosol, Lasix Diflucan Perforomist, NovoLog, Synthroid, Imodium, Ativan, milk of magnesia, melatonin, prednisone, Lopressor, Silvadene cream, PHYSICAL EXAM VITAL SIGNS: GENERAL APPEARANCE: Sitting up in the bed mildly anxious and irritated. HENT: Normocephalic, oral cavity normal, external appearance of ears/nose normal NECK:JVD raised. Mass not palpable. EYES:Pupils equal.conjunctiva normal, has exophthalmos, MOUTH: Oral cavity with white patches noted to buccal area and posterior pharynx RESPIRATORY: Respiratory effort increased. Lungs diminished with inspiratory and expiratory wheezing, . CARDIOVASCULAR: First and second sounds normal.mild edema. ABDOMEN: Soft. Liver and spleen not palpable. No tenderness. No mass palpable. PSYCHIATRY: Alert and oriented x3. Mood and affect flat and somewhat lethargic, irritable INTEGUMENT: Left lower extremity reddened, no drainage noted INVESTIGATIONS: LABS: Sodium 143, potassium 5.1, BUN 133, creatinine 4.50, Accu-Cheks noted. Blood cultures no growth after 144 hours ASSESSMENT: -acute on chronic congestive heart failure exacerbation from systolic dysfunction, from non ischemic cardiomyopathy ejection fraction 40-45 percent worsening -chronic obstructive pulmonary disease exacerbation in an ex-smoker, slow to respond -Acute metabolic encephalopathy secondary to worsening renal function -Acute severe renal failure probably acute tubular necrosis with a prerenal component due to hypotension and severe diuresis worsening -Chronic kidney disease stage III secondary to nephrosclerosis cardiac renal syndrome with baseline creatinine in the range of 1.3-1.5. -moderate tricuspid regurgitation, nonrheumatic. -Severe secondary pulmonary hypertension secondary to chronic obstructive pulmonary disease. -Persistent atrial fibrillation/flutter chronically on Eliquis. -Subconjunctival hemorrhage left eye likely due to coughing episodes, improving -Restless leg syndrome, chronic. -Chronic fibromyalgia. -Primary osteoarthritis multiple joints, bilateral. -Chronic hypoxic respiratory failure from underlying chronic obstructive pulmonary disease on 3 L of oxygen at home. -Acute hypoxic respiratory failure from chronic obstructive pulmonary disease present on admission. -Hypothyroidism. -Medical debility. -Gait dysfunction uses a walker. -Peripheral arterial disease with prior history of stent. -Acute left lower extremity cellulitis, improving -Oral candidiasis in a patient who is on antibiotics, improving -CODE STATUS DO NOT RESUSCITATE. PLAN: We'll stop IV fluids and add Lasix 60 mg IV twice daily and marine service operator discussed the need to start renal replacement therapy with the patient patient wishes for no renal replacement therapy at this time. Continue nebulized bronchodilators, antibiotics and IV Solu-Medrol switched to oral. We'll continue all other medications and treatments as well. Case management has arranged for an informational hospice meeting with family and the patient. Plan of care discussed at the bedside we will follow closely. 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 Ramos
[2017-11-16 21:13] LABS: Glucose,Whole Blood 141 mg/dL (75-99)
[2017-11-16] MEDS: MELATONIN 5 MG TABLET PO SCH (21:40)
[2017-11-16] MEDS: ATORVASTATIN 80 MG TAB PO SCH (21:40)
[2017-11-16] MEDS: SODIUM CHLORIDE 0.9% 1,000 ML IV SCH (21:41)
[2017-11-17 00:01] VITALS: RESP 16
[2017-11-17] MEDS: HYDROcodone/APAP 5-325MG 1 EACH TAB PO PRN ×2 (06:14→13:23)
[2017-11-17] MEDS: LEVOTHYROXINE 137 MCG TAB PO SCH ×2 (06:22→06:23)
[2017-11-17 07:27] LABS: Glucose,Whole Blood 104 mg/dL (75-99)
[2017-11-17] MEDS: INSULIN ASPART 100 UNIT/ML 1 ML 10 ML VIAL SQ SCH ×3 (07:29→17:09)
[2017-11-17] MEDS: IPRATROPIUM-ALBUTEROL 3 ML NEB INHALATION SCH ×3 (07:29→15:32)
[2017-11-17] MEDS: FORMOTEROL FUMARATE 20 MCG/2 ML NEBU INHALATION SCH ×2 (07:29→19:59)
[2017-11-17] MEDS: BUDESONIDE 0.5 MG/2 ML NEBU INHALATION SCH (07:29)
[2017-11-17 08:40] LABS: Calcium 8.7 mg/dL (8.4-10.2); Potassium 4.8 mmol/L (3.5-5.1)
[2017-11-17] MEDS: METOPROLOL TARTRATE 25 MG TAB PO SCH ×2 (08:44→15:29)
[2017-11-17] MEDS: APIXABAN 2.5 MG TABLET PO SCH (08:45)
[2017-11-17] MEDS: AMIODARONE 200 MG TAB PO SCH (08:45)
[2017-11-17] MEDS: ASPIRIN 81 MG PO SCH (08:45)
[2017-11-17] MEDS: NON-FORMULARY DRUG (Colloidal Oatmeal [Eucerin Eczema Relief] 1 APPLIC) TOPICAL SCH (08:46)
[2017-11-17] MEDS: FAMOTIDINE 20 MG TAB PO SCH (08:47)
[2017-11-17] MEDS: FERROUS SULFATE 325 MG TAB PO SCH (08:47)
[2017-11-17] MEDS: ESCITALOPRAM 20 MG TAB PO SCH (08:47)
[2017-11-17] MEDS: FLUCONAZOLE 100 MG TAB PO SCH (08:47)
[2017-11-17] MEDS: predniSONE 20 MG TAB PO SCH (08:49)
[2017-11-17] MEDS: FUROSEMIDE 20 MG TAB PO SCH ×2 (08:49→15:29)
[2017-11-17] MEDS: LORazepam 0.5 MG TAB PO PRN (08:54)
[2017-11-17 11:46] LABS: Glucose,Whole Blood 116 mg/dL (75-99)
[2017-11-17] MEDS ORDERED: MORPHINE ORAL SOLN 10 MG/5 ML CUP PO PRN (14:37)
[2017-11-17] MEDS ORDERED: LORazepam 0.5 MG TAB PO PRN (14:39)
[2017-11-17] MEDS: SODIUM CHLORIDE 0.9% 1,000 ML IV SCH (15:31)
[2017-11-17 17:20] VITALS: BP 132/78; PULSE 91; TEMP 98.2
--- NOTE | 2017-11-17 19:34 | PN ---
PROGRESS NOTE Patient is seen for followup for acute kidney injury, mostly ATN versus cardiorenal. Renal replacement therapy was offered and at this time family has decided not to proceed with any aggressive measures. They are looking into possible hospice care. EXAMINATION: Patient does open her eyes. She is not able to carry on a conversation. She appears short of breath. Blood pressure is 132/78, heart rate 102 per minute. She is afebrile. Examination of the heart S1, S2. Examination of the lungs decreased breath sounds at the bases, bilateral crackles are heard. Abdomen is soft, nontender. Examination of lower extremities shows edema 1+ bilaterally. LABS: Sodium 143, potassium 4.8, BUN 139, serum creatinine 4.6 mg/dL. ASSESSMENT: 1. Progressive renal failure, mostly cardiorenal, currently with no plans for renal replacement therapy. 2. Severe cardiomyopathy. 3. Generalized debility. 4. Chronic kidney disease with baseline creatinine about 1.3-1.5 NKF stage III. 5. Severe pulmonary hypertension. PLAN: Agree with plans for hospice care. 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 Continue off of IV fluids. Continue with oral Lasix for now. MMODL / IJN: [id number] /
[2017-11-17] MEDS ORDERED: ACETAMINOPHEN SUPPOSITORY 120 MG SUPP RECTAL PRN (20:05)
[2017-11-17] MEDS ORDERED: BISACODYL 10 MG SUPP RECTAL PRN (20:06)
[2017-11-17] MEDS ORDERED: MORPHINE ORAL SOL CONC 20 MG/ML BOTTLE PO PRN (20:09)
[2017-11-17] MEDS ORDERED: ONDANSETRON 4 MG TAB PO PRN (20:09)
[2017-11-17] MEDS ORDERED: LORazepam 1 MG TAB PO PRN (20:11)
[2017-11-17] MEDS ORDERED: ATROPINE OPHTH SOLN 1% 5ML BTL BOTH EYES PRN (20:14)
[2017-11-17] MEDS ORDERED: SCOPOLAMINE 1.5MG/72HR PATCH TRANSDERM SCH (20:15)
--- NOTE | 2017-11-18 07:20 | PN ---
PROGRESS NOTE DATE OF SERVICE: 11/17/2017 This 62-year-old woman was admitted with CHF exacerbation also multiple complex medical issues including renal failure, chronic kidney disease, and also change in mental status also. Despite significant treatment with IV diuretics and steroids, the patient is not improving at this time. The patient is barely responsive. Patient has significant shortness of breath even at rest, unable to complete a sentence. The family is also contemplating possible comfort measures also. PAST MEDICAL HISTORY: Reviewed. REVIEW OF SYSTEMS: Could not be taken, the patient is confused. CURRENT MEDICATIONS: Reviewed and include: Tylenol, Roxanol, Ativan, Dulcolax, and other medications. Medications doses were also reviewed. PHYSICAL EXAM: Patient is confused and stuporous as mentioned. Pulse 102, blood pressure 130/78, respirations 16, temperature 98.2, pulse ox 98% on 3 L. HEENT: Conjunctivae normal. Oral mucosa moist. Neck is jugular venous distention at root of the neck. Face is congested and neck is also distended. CARDIOVASCULAR: S1, S2. Ejection systolic murmur present. RESPIRATORY: Breath sounds diminished in the bases. Bilateral scattered rhonchi and crackles. Breathing efforts are markedly increased. Bilateral scattered rhonchi and crackles. Expiratory wheezing also present. ABDOMEN: Soft, obese, nontender. LEGS: Bilateral leg edema. NERVOUS SYSTEM: Diffusely weak. LABS: Sodium 140, potassium 4.8, BUN is 113, creatinine is 4.66. ASSESSMENT: 1. Congestive heart failure acute exacerbation with acute on chronic systolic dysfunction ejection fraction 40-45% with ischemic cardiomyopathy. 2. Chronic obstructive pulmonary disease acute exacerbation. 3. Acute metabolic encephalopathy secondary to worsening renal failure. 4. Acute on chronic renal failure with chronic kidney disease stage 3. 5. Moderate tricuspid regurgitation nonrheumatic. 6. Severe secondary pulmonary hypertension. 7. Persistent atrial fibrillation. 8. Subconjunctival hemorrhage on the left eye. 9. Restless legs syndrome. 10.Chronic fibromyalgia. 11.Degenerative joint disease. 12.Chronic hypoxic respiratory failure on home O2. 13.Acute hypoxic respiratory failure multifactorial. 14.Hypothyroidism. 15.Medical debility. 16.Gait dysfunction, peripheral artery disease with history of stent. 17.Oral candidiasis. 18.NO CODE, NO CPR, NO VENT. RECOMMENDATIONS AND DISCUSSION: In this 62-year-old woman who presented with multiple complex medical issues, the patient is not responding to the intensive extensive treatment as detailed above despite several days of attempts. Multiple concerns also following the patient closely. I discussed the case with the sons at the bedside and as well as staff and at this time we will discuss for possible information for proceeding with hospice and comfort measures. Otherwise at this time the patient is on IV access and I would also recommend Roxanol for comfort and pain. Otherwise as mentioned earlier, renal functions are worsening to 4.66 today and further recommendations to follow. Once again, the prognosis guarded. MMODL / IJN: [id number] /
--- NOTE | 2017-11-18 13:32 | PN ---
PROGRESS NOTE DATE OF SERVICE: 11/16/17. ATTENDING NOTE: Patient seen and examined by me on 11/16/17. Discussed with nurse practitioner, Ms. Monk. The patient continues to do poorly in terms especially of renal function. Patient lethargic. Able to answer some questions. Eating small amounts. PHYSICAL EXAMINATION: On examination, afebrile, pulse 100, respirations 20, blood pressure 130/75. Tired, lethargic, able answer some questions. LUNGS: Poor air entry. edema present. INVESTIGATIONS: BUN 133, creatinine 4.5. ASSESSMENT: 1. Acute renal failure probably acute tubular necrosis, now worsening. 2. End-stage chronic obstructive pulmonary disease. 3. Multiple other medical problems. PLAN: Dr. Crowley already talked to the patient earlier today. Did mention hospice may be appropriate route to go. Continue with current medication and treatment plan. Patient is doing poorly. Continues to worsen. Hospice will probably be appropriate way to go. MMODL / IJN: [id number] /
== END 2017-11-17 20:39 | disposition hospice, inpatient (51) | DRG 291 ==
LOC: SUPCPDRO 22:42 → EC 22:42 → 6SEL 11-06 00:23 → 4MS4W 11-16 19:55
PROVIDERS: ADMIT Hospitalist; ATTEND Hospitalist
DX: I13.0 Hypertensive heart and chronic kidney disease with heart failure and stage 1 through stage 4 chronic kidney disease, or unspecified chronic kidney disease (principal); G93.41 Metabolic encephalopathy; J96.21 Acute and chronic respiratory failure with hypoxia; N17.0 Acute kidney failure with tubular necrosis; B37.0 Candidal stomatitis; I27.29 Other secondary pulmonary hypertension; I48.1 Persistent atrial fibrillation; I95.9 Hypotension, unspecified; I48.92 Unspecified atrial flutter; I36.1 Nonrheumatic tricuspid (valve) insufficiency; Z99.81 Dependence on supplemental oxygen; I48.2 Chronic atrial fibrillation; I50.43 Acute on chronic combined systolic (congestive) and diastolic (congestive) heart failure; L03.116 Cellulitis of left lower limb; J44.1 Chronic obstructive pulmonary disease with (acute) exacerbation; T50.2X5A Adverse effect of carbonic-anhydrase inhibitors, benzothiadiazides and other diuretics, initial encounter; G25.81 Restless legs syndrome; E03.9 Hypothyroidism, unspecified; E66.9 Obesity, unspecified; E78.5 Hyperlipidemia, unspecified; F32.9 Major depressive disorder, single episode, unspecified; F40.240 Claustrophobia; H11.32 Conjunctival hemorrhage, left eye; I25.10 Atherosclerotic heart disease of native coronary artery without angina pectoris; I25.2 Old myocardial infarction; I25.5 Ischemic cardiomyopathy; I45.10 Unspecified right bundle-branch block; I73.9 Peripheral vascular disease, unspecified; K21.9 Gastro-esophageal reflux disease without esophagitis; M15.9 Polyosteoarthritis, unspecified; M79.7 Fibromyalgia; N18.3 Chronic kidney disease, stage 3 (moderate); R26.9 Unspecified abnormalities of gait and mobility; Z66 Do not resuscitate; Z68.30 Body mass index [BMI] 30.0-30.9, adult; Z79.01 Long term (current) use of anticoagulants; Z79.82 Long term (current) use of aspirin; Z79.899 Other long term (current) drug therapy; Z88.1 Allergy status to other antibiotic agents; Z88.8 Allergy status to other drugs, medicaments and biological substances; Z87.891 Personal history of nicotine dependence; Z51.5 Encounter for palliative care; Z82.49 Family history of ischemic heart disease and other diseases of the circulatory system; Y92.239 Unspecified place in hospital as the place of occurrence of the external cause
CPT/HCPCS: 36415; 71045; 71046; 80048; 80053; 80202; 81001; 82272; 82550; 82553; 83036; 83735; 83880; 84100; 84484; 85025; 85610; 85730; 87040; 87205; 93005; 93306; 94640; 94760; 96365; 96375; 99285

== ENCOUNTER 2017-11-17 20:34 | Inpatient (IN) | payer MEDICAID ==
[2017-11-17] MEDS ORDERED: ACETAMINOPHEN SUPPOSITORY 650 MG SUPP RECTAL PRN (20:59)
[2017-11-17] MEDS ORDERED: BISACODYL 10 MG SUPP RECTAL PRN (21:00)
[2017-11-17] MEDS ORDERED: ONDANSETRON 4 MG TAB PO PRN (21:01)
[2017-11-17] MEDS ORDERED: SCOPOLAMINE 1.5MG/72HR PATCH TRANSDERM SCH (21:15)
[2017-11-17] MEDS: ATROPINE OPHTH SOLN 1% 5ML BTL BOTH EYES PRN (21:34)
[2017-11-17] MEDS: LORazepam 1 MG TAB PO PRN (21:35)
[2017-11-17] MEDS: MORPHINE ORAL SOL CONC 20 MG/ML BOTTLE PO PRN (21:58)
[2017-11-18] MEDS: MORPHINE ORAL SOL CONC 20 MG/ML BOTTLE PO PRN ×15 (00:17→18:44)
[2017-11-18] MEDS: ATROPINE OPHTH SOLN 1% 5ML BTL BOTH EYES PRN ×5 (00:57→17:43)
[2017-11-18] MEDS: LORazepam 1 MG TAB PO PRN ×6 (07:46→18:10)
[2017-11-18] MEDS ORDERED: SCOPOLAMINE 1.5MG/72HR PATCH TRANSDERM STA (12:06)
[2017-11-18 15:13] VITALS: BP 100/65; PULSE 91; TEMP 96.7
[2017-11-18] MEDS ORDERED: LORazepam 1 MG TAB PO PRN (18:24)
[2017-11-18] MEDS ORDERED: MORPHINE ORAL SOL CONC 20 MG/ML BOTTLE PO PRN (18:25)
[2017-11-18 19:17] VITALS: RESP 6
--- NOTE | 2017-11-19 04:50 | PN ---
PROGRESS NOTE DATE OF SERVICE: 11/18/2017 This 62-year-old woman who was admitted with CHF acute exacerbation is on comfort measures at this time. The patient is on p.o. morphine. IV access is unobtainable. The patient is sedated. PHYSICAL EXAM: On exam, pulse is 91, blood pressure 100/65, respirations 20, temperature 96.7, pulse ox 99% on 4 L. HEENT: Conjunctivae normal. NECK: no jvd CARDIOVASCULAR: S1 and S2 muffled. RESPIRATORY: Breath sounds diminished at the bases. A few scattered rhonchi and crackles. ABDOMEN: Soft. NERVOUS SYSTEM: Patient unresponsive. LABS: Not available. ASSESSMENT: 1. Congestive heart failure acute exacerbation with acute on chronic systolic dysfunction with ejection fraction 40% to 45% with ischemic cardiomyopathy. 2. Chronic obstructive pulmonary disease acute exacerbation. 3. Acute metabolic encephalopathy secondary to worsening renal failure. 4. Acute on chronic renal failure with chronic kidney disease stage 3. 5. Moderate tricuspid regurgitation nonrheumatic. 6. Severe secondary pulmonary hypertension. 7. Persistent atrial fibrillation. 8. Subconjunctival hemorrhage on the left eye. 9. Restless legs syndrome. 10.Chronic fibromyalgia. 11.Degenerative joint disease. 12.Chronic hypoxic respiratory failure on home O2. 13.Acute hypoxic respiratory failure multifactorial. 14.Hypothyroidism. 15.Medical debility. 16.Gait dysfunction. 17.Peripheral arterial disease with history of stent. 18.Oral candidiasis. 19.NO CODE, NO CPR, NO VENT. 20.Comfort measures. RECOMMENDATIONS AND DISCUSSION: Recommend to continue current medications. Continue symptomatic treatment. Continue with Roxanol p.r.n. this could be increased to every 30 minutes or more frequently if needed because of lack of IV access. Prognosis guarded. Discussed with family, understands and agrees. Further recommendations to follow. MMODL / IJN: [id number] / GARY
--- NOTE | 2017-11-20 11:22 | DS ---
DISCHARGE SUMMARY The preliminary cause of is congestive heart failure acute exacerbation, acute on chronic systolic dysfunction, ejection fraction 40% to 45%. with cardiomyopathy. Other diagnoses are: 1. Chronic obstructive pulmonary disease acute exacerbation. 2. Acute metabolic encephalopathy secondary to worsening renal failure. 3. Acute on chronic renal failure with chronic kidney disease stage 3. 4. Moderate tricuspid regurgitation, nonrheumatic. 5. Severe secondary pulmonary hypertension. 6. Persistent atrial fibrillation. 7. Subconjunctival hemorrhage. 8. Restless leg syndrome. 9. Chronic fibromyalgia. HISTORY OF PRESENT ILLNESS: This 62-year-old woman with a past medical history of multiple medical problems admitted with CHF acute exacerbation as well as multiple other medical problems as mentioned earlier. Patient also had COPD acute exacerbation. Treated significantly and but however because of lack of improvement the family decided to go with comfort measures. The patient subsequently because of the above mentioned multiple complex medical issues. Prognosis had been extremely guarded through the hospital stay. Please refer to the previous notes for further information. MMODL / IJN: [id number] / GARY
== END 2017-11-18 21:39 | disposition expired | DRG 291 ==
LOC: 4MS4W 20:34
PROVIDERS: ADMIT Internal Medicine; ATTEND Internal Medicine
DX: I13.0 Hypertensive heart and chronic kidney disease with heart failure and stage 1 through stage 4 chronic kidney disease, or unspecified chronic kidney disease (principal); I50.23 Acute on chronic systolic (congestive) heart failure; J96.21 Acute and chronic respiratory failure with hypoxia; G93.41 Metabolic encephalopathy; N17.9 Acute kidney failure, unspecified; B37.0 Candidal stomatitis; I48.1 Persistent atrial fibrillation; I27.29 Other secondary pulmonary hypertension; N18.3 Chronic kidney disease, stage 3 (moderate); I36.1 Nonrheumatic tricuspid (valve) insufficiency; J44.1 Chronic obstructive pulmonary disease with (acute) exacerbation; I25.5 Ischemic cardiomyopathy; E03.9 Hypothyroidism, unspecified; G25.81 Restless legs syndrome; H11.32 Conjunctival hemorrhage, left eye; I73.9 Peripheral vascular disease, unspecified; M19.90 Unspecified osteoarthritis, unspecified site; M79.7 Fibromyalgia; R26.9 Unspecified abnormalities of gait and mobility; E78.5 Hyperlipidemia, unspecified; R53.81 Other malaise; Z51.5 Encounter for palliative care; Z99.81 Dependence on supplemental oxygen; Z66 Do not resuscitate; Z79.01 Long term (current) use of anticoagulants; Z79.82 Long term (current) use of aspirin; Z79.899 Other long term (current) drug therapy; Z90.49 Acquired absence of other specified parts of digestive tract; Z87.891 Personal history of nicotine dependence